=== PATIENT | female | born 1930 | race Caucasian/White ===

== ENCOUNTER 2017-02-10 11:15 | Emergency (ER) | payer MEDICARE, BC ==
[2017-02-10 12:17] LABS: CHLORIDE,CL 99 mmol/L (101-111); SODIUM,NA 138 mmol/L (135-145)
--- NOTE | 2017-02-10 12:36 | EDM.PDOC ---
ED HISTORY OF PRESENT ILLNESS - General Chief Complaint: Cardiovascular Problem Stated Complaint: SOB,JAW PAIN. COMING TO ER GARAGE Time Seen by Provider: 02/10/17 11:45 Source of Information: Reports: Patient, Family History Limitations: Reports: No limitations - History of Present Illness INITIAL COMMENTS - FREE TEXT/NARRATIVE: This 86 yo female patient reports to the ED with a 2 day history of a headache ( top of head), a 2 day history of right sided posterior neck pain, and weakness of her lower extremities (started this morning). The patient also reports increased shortness of breath and right jaw pain. The patient reports her shortness of breath started about 1 month ago. The jaw pain started with the headache and right posterior neck pain (2 day sago). The patient was seen by Dr. Weeks yesterday for the headache and neck pain, was scheduled for a CT tomorrow and given a script for Hydrocodone yesterday. The patient reports little to no symptom improvement from the [place]. The patient has a past history of CHF, lower back pain and has been seen by pain management several times in the past for chronic back pain with no improvement from treatment. 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) - Related Data Allergies/ADRs: Allergies Allergy/AdvReac Type Severity Reaction Status Date / Time amoxicillin Allergy Hives Verified 03/24/16 14:19 ezetimibe Allergy Cannot Verified 03/25/16 07:27 Remember moxifloxacin Allergy Cannot Verified 03/25/16 07:28 Remember sulindac Allergy Cannot Verified 03/25/16 07:28 Remember Tetracyclines Allergy Cannot Verified 03/25/16 07:28 Remember Home Meds: Home Meds Fenofibrate 160 mg PO DAILY 04/20/15 [History] Hydrocodone/Acetaminophen [[place] 10-325 Tablet] 1 each PO TID PRN 04/20/15 [ History] Metoprolol Succinate [Toprol XL] 100 mg PO DAILY 04/20/15 [History] Valsartan/Hydrochlorothiazide [Valsartan-Hctz 320-25 mg Tab] 1 each PO DAILY 12/31 [History] amLODIPine Besylate [Amlodipine Besylate] 10 mg PO DAILY 04/20/15 [History] metFORMIN [Glucophage] 1,000 mg PO BIDMEALS 04/20/15 [History] Clopidogrel [Plavix] 75 mg PO DAILY 03/24/16 [History] Pantoprazole [ProTONIX] 1 tab PO DAILY 03/24/16 [History] Aspirin 325 mg PO DAILY 03/25/16 [History] Ca/D3/Mag#11/Zinc/Laundry Route Driver/Darren/Bor [Caltrate 600+D Plus Tablet] 1 tab PO DAILY 03/25 [History] Gabapentin [Neurontin] 1 cap PO QID 03/25/16 [History] [place]-3 Acid Ethyl Esters [Lovaza] 2 cap PO DAILY 03/25/16 [History] Furosemide [Lasix] 20 mg PO DAILY 02/10/17 [History] Mupirocin Cream [Bactroban Crm] 1 applic TOP TID PRN 02/10/17 [History] Nystatin [Nystatin Crm] 1 applic TOP BID PRN 02/10/17 [History] cloNIDine [Catapres] 0.1 mg PO BID 02/10/17 [History] cycloSPORINE [Restasis Multidose] 1 drop EYEBOTH BID 02/10/17 [History] Past Medical History - Past Health History Medical/Surgical History: Denies Medical/Surgical History Cardiovascular History: Reports: High cholesterol, Hypertension Musculoskeletal History: Reports: Back pain, chronic, Osteoarthritis, Other ( see below) Other Musculoskeletal History: degenerative disc disease Neurological History: Reports: Headaches, chronic Endocrine/Metabolic History: Reports: Diabetes, type II - Past Surgical History Cardiovascular Surgical History: Reports: None Other Female Surgeries/Procedures: Bladder surgery Social & Family History - Family History Family Medical History: Noncontributory - Tobacco Use Smoking Status *Q: Never Smoker Second Hand Smoke Exposure: No - Caffeine Use Caffeine Use: Reports: Coffee, Tea - Recreational Drug Use Recreational Drug Use: No - Living Situation & Occupation Living situation: Reports: , alone Occupation: retired ED ROS GENERAL - Review of Systems Review Of Systems: ROS reveals no pertinent complaints other than HPI. ED EXAM, GENERAL - Physical Exam Exam: See Below General Appearance: alert, WD/WN, moderate distress Eye Exam: bilateral eye: EOMI, normal inspection, PERRL Ears: normal external exam, normal canal, hearing grossly normal, normal TMs Nose: normal inspection, normal mucosa, no blood Throat/Mouth: Normal inspection, Normal lips, Normal teeth, Normal gums, Normal oropharynx, Normal voice, No airway compromise Head: atraumatic, normocephalic Neck: tender lateral (right posterior) Respiratory/Chest: no respiratory distress, lungs clear, normal breath sounds, no accessory muscle use, chest non-tender Cardiovascular: normal peripheral pulses, regular rate, rhythm, no edema, no gallop, no JVD, no murmur, no rub GI/Abdominal: normal bowel sounds, soft, non tender, no organomegaly, no distention, no abnormal bruit, no mass (Female) Exam: Deferred Rectal (Female) Exam: Deferred Back Exam: paraspinal tenderness Extremities: normal inspection, normal range of motion, non-tender, normal capillary refill Neurological: alert, oriented, CN II-XII intact, normal cognition Psychiatric: normal affect, normal mood Skin Exam: Warm, Dry, Intact, Normal color, No rash Lymphatic: no adenopathy Course - Vital Signs Last Recorded V/S: Last Vital Signs Temp 36.6 C 02/10/17 15:20 Pulse 74 02/10/17 15:20 Resp 22 H 02/10/17 15:20 BP 161/55 H 02/10/17 15:20 Pulse Ox 94 L 02/10/17 15:20 - Orders/Labs/Meds Orders: Active Orders 24 hr Category Date Time Status EKG Documentation Completion [RC] URGENT Care 02/10/17 11:32 Active Labs: Laboratory Tests 02/10/17 02/10/17 Range/Units 11:15 11:40 WBC 9.3 (5.0-10.0) 10^3/uL RBC 4.11 L (4.2-5.4) 10^6/uL Hgb 11.0 L (12.0-16.0) g/dL Hct 35.1 L (37.0-47.0) % MCV 85.4 (80-100) fL MCH 26.8 L (27.0-34.0) pg MCHC 31.3 L (33.0-35.0) g/dL Plt Count 213 (150-450) 10^3/uL Neut % (Auto) 58.9 (42.2-75.2) % Lymph % (Auto) 23.2 (20.5-50.1) % [place] % (Auto) 10.8 H (2-8) % Eos % (Auto) 6.6 H (1.0-3.0) % Baso % (Auto) 0.5 (0.0-1.0) % Sodium 138 (135-145) mmol/L Potassium 3.9 (3.6-5.0) mmol/L Chloride 99 L (101-111) mmol/L Carbon Dioxide 29.0 (21.0-31.0) mmol/L Anion Gap 13.9 BUN 32 H (7-18) mg/dL Creatinine 1.1 (0.6-1.3) mg/dL Est Cr Clr Drug Dosing TNP Estimated GFR (MDRD) 47 BUN/Creatinine Ratio 29.09 Glucose 226 H (74-105) mg/dL Calcium 9.4 (8.4-10.2) mg/dl Total Bilirubin 0.3 (0.2-1.0) mg/dL AST 27 (10-42) IU/L ALT 16 (10-60) IU/L Alkaline Phosphatase 25 L (42-121) IU/L Troponin I < 0.02 (0.00-0.02) ng/ml Total Protein 6.8 (6.7-8.2) g/dl Albumin 3.6 (3.2-5.5) g/dl Globulin 3.2 Albumin/Globulin Ratio 1.13 Meds: Medications Discontinued Medications Generic Name Dose Route Start Last Admin Trade Name Freq PRN Reason Stop Dose Admin Morphine Sulfate 2 mg 02/10/17 15:12 02/10/17 15:16 Morphine IVPUSH 02/10/17 15:13 2 mg ONETIME ONE Administration Departure - Departure Time of Disposition: 15:17 Disposition: DC/Tfer to Acute Hospital 02 Reason for Transfer *Q: Other Condition: poor Clinical Impression: Lower extremity weakness Qualifiers: Laterality: bilateral Qualified Code(s): R29.898 - Other symptoms and signs involving the musculoskeletal system Referrals: Umberto Weeks MD [Primary Care Provider] - Forms: Interfacility Transfer EMTALA Care Plan Goals: Discussed the history, examination, CT and lab results with Dr. Osullivan. Dr. Osullivan accepted the patient for continued evaluation and management. The patient will be transported by [facility]. - My Orders Last 24 Hours: My Active Orders 02/10/17 11:32 EKG Documentation Completion [RC] URGENT - Assessment/Plan Last 24 Hours: My Active Orders 02/10/17 11:32 EKG Documentation Completion [RC] URGENT
--- NOTE | 2017-02-10 13:19 | CT ---
CLINICAL HISTORY: 86-year-old female with pain and weakness. SCAN TECHNIQUE: Volume acquisition of data from an emergency unenhanced CT scan of the cervical spin e obtained with the patient lying supine on the Siemens multislice CT scanner [place], [place]. All data archived in the PACS system for storage, reformatting and study. INTERPRETATION: Dense callus around os odontoideum (dens of C2) consistent with old, healed, anatomically aligned no ndisplaced fracture. Some reactive sclerosis posterior articulating facets several levels mid cervical spine but no sign of pathologic skeletal lesion, prevertebral soft tissue swelling, acute cervical fracture, spondylol isthesis or jumped locked facet. No appreciable disc disease or hypertrophic arthritic changes of the cervical spine. CONCLUSION: Apparent old healed fracture odontoid process C2. Minimal arthritic changes.
--- NOTE | 2017-02-10 13:20 | CT ---
CLINICAL HISTORY: 86-year-old female with pain and weakness. SCAN TECHNIQUE: Volume acquisition of data from an emergency unenhanced CT scan of the head obtained with the patient lying supine on the Siemens multislice CT scanner [facility]. All data archived in the PACS system for storage, reformatting and study (bone and br ain windows). INTERPRETATION: Abnormal. 1. Asymmetric old ischemic infarct high in the right parietal convexity unchanged since 20 April 2015. 2. Moderate severe but relatively symmetric cerebral cortical atrophy. 3. No new supratentorial or posterior fossa mass lesion, hydrocephalus or extracerebral/intracranial epidural or subdural hematoma. No abnormal intracerebral/intraventricular/subarachnoid blood. 4. No other new focal areas of ischemic infarct. 5. Cerebellum and brainstem unremarkable.
--- NOTE | 2017-02-10 13:25 | CT ---
CLINICAL HISTORY: 86-year-old female with pain and weakness low back. SCAN TECHNIQUE: Volume acquisition of data from an emergency unenhanced CT scan of the lumbar spine obtained with the patient lying supine on the Siemens multislice CT scanner [facility]. All data archived in the PACS system for storage, reformatting and study. INTERPRETATION: Abnormal. 1. 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 2. Subtle decrease in vertical height T12 vertebral body with prominent Schmorl's node dorsal endpla te. 3. Chronic multilevel disc disease involving nearly all levels lower thoracic and lumbar spine but p articularly severe involvement T12-L1, L2-L3, and L4-L5 levels. (Dextrorotatory scoliosis) 4. Associated dense reactive sclerosis adjacent L4 and L5 endplates. Hypertrophic marginal spondylos is L2-3, L4 and L5 vertebra. Dense bony sclerosis posterior articulating facets. 5. No sign of pathologic skeletal lesion, acute lumbar fracture or spondylolisthesis. 6. Symmetric normal-appearing SI and hip joints, for age.
[2017-02-10] MEDS ORDERED: Morphine 2 MG/ML Syringe IVPUSH ONE (15:12)
[2017-02-10 15:21] VITALS: BP 161/55
--- NOTE | 2017-02-11 11:52 | EKG ---
02/10/2017 - SANGEETHA BAZZI - The 12-lead EKG shows normal sinus rhythm with heart rate of 72, consistent with left bundle-branch block. Nonspecific ST-T wave changes noted on lead V1, V2, and V3 secondary to the left bundle-branch block. No significant ST elevation or ST depression noted on this 12-lead EKG. [facility] /[id number]
== END 2017-02-10 15:52 ==
LOC: DL.ED 11:15
DX: R29.898 Other symptoms and signs involving the musculoskeletal system (principal); E78.00 Pure hypercholesterolemia, unspecified; I10 Essential (primary) hypertension; M51.36 Other intervertebral disc degeneration, lumbar region; R51 Headache; E11.9 Type 2 diabetes mellitus without complications; Z88.8 Allergy status to other drugs, medicaments and biological substances; Z79.899 Other long term (current) drug therapy
CPT/HCPCS: 36415; 70450; 72125; 72131; 80053; 84484; 85025; 93005; 93010; 96374; 99285; J2270; 99284

== ENCOUNTER 2018-12-05 01:30 | Emergency (ER) | payer MEDICARE, BC ==
[2018-12-05 01:49] VITALS: BP 147/60
[2018-12-05] MEDS ORDERED: Nitroglycerin 0.4 MG Tab.SL ONE (01:50)
[2018-12-05] MEDS: Nitroglycerin 0.4 MG Tab.SL SL ONE ×2 (01:51→02:00)
[2018-12-05] MEDS ORDERED: Ondansetron 4 MG/2 ML SDV IV ONE (02:17)
[2018-12-05] MEDS ORDERED: Ondansetron 4 MG/2 ML SDV ONE (02:25)
[2018-12-05] MEDS ORDERED: Morphine 2 MG/ML Syringe ONE (02:25)
[2018-12-05] MEDS: Morphine 2 MG/ML Syringe IVPUSH ONE ×2 (02:27→02:28)
[2018-12-05 02:31] LABS: ANION GAP 19.6; CHLORIDE,CL 96 mmol/L (101-111); SODIUM,NA 135 mmol/L (135-145)
[2018-12-05] MEDS ORDERED: Ketorolac 30 MG/ML SDV IVPUSH ONE (02:32)
--- NOTE | 2018-12-05 02:34 | EDM.PDOC ---
ED HPI GENERAL MEDICAL PROBLEM - General Chief Complaint: Upper Extremity Injury/Pain Stated Complaint: BAD PAIN IN ARM [id number] Time Seen by Provider: 12/05/18 01:42 Source of Information: Reports: Patient History Limitations: Reports: No Limitations - History of Present Illness INITIAL COMMENTS - FREE TEXT/NARRATIVE: Hx waking 2 hours ago with pain to left arm, points to elbow area. Onset 2 hours prior. Initially described as dull ache, later sharp , both constant then intermittent, unclear whether affected or not by movement. Girish injury. Denies chest pain or SOB. No sweating, Hx Remote CVA with left side affect. 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 Left Arm Pain Score (Numeric/FACES): 5 - Related Data Allergies Allergy/AdvReac Type Severity Reaction Status Date / Time amoxicillin Allergy Hives Verified 07/25/18 18:35 ezetimibe Allergy Cannot Verified 07/25/18 18:35 Remember morphine Allergy Confusion Verified 12/05/18 02:29 moxifloxacin Allergy Cannot Verified 07/25/18 18:35 Remember naproxen [From Aleve] Allergy Cannot Verified 07/25/18 18:35 Remember Snaghiv-Qtx-Ygg Reductase Allergy Muscle Verified 07/25/18 18:35 Inhibitor Aches sulindac Allergy Cannot Verified 07/25/18 18:35 Remember Tetracyclines Allergy Cannot Verified 07/25/18 18:35 Remember Home Meds: Home Meds Fenofibrate 160 mg PO DAILY 04/20/15 [History] Metoprolol Succinate [Toprol XL] 100 mg PO DAILY 04/20/15 [History] Valsartan/Hydrochlorothiazide [Valsartan-Hctz 320-25 mg Tab] 1 each PO DAILY 12/31 [History] amLODIPine Besylate [Amlodipine Besylate] 10 mg PO DAILY 04/20/15 [History] metFORMIN [Glucophage] 1,000 mg PO BIDMEALS 04/20/15 [History] Clopidogrel [Plavix] 75 mg PO DAILY 03/24/16 [History] Pantoprazole [ProTONIX] 40 mg PO DAILY 03/24/16 [History] Aspirin 325 mg PO DAILY 03/25/16 [History] Furosemide [Lasix] 20 mg PO DAILY 02/10/17 [History] cloNIDine [Catapres] 0.3 mg PO BID 02/10/17 [History] Cyanocobalamin (Vitamin B-12) [Vitamin B-12] 500 mcg PO DAILY 03/30/18 [History] oxyCODONE HCl/Acetaminophen [Percocet 7.5-325 mg Tablet] 1 tab PO Q8HR PRN 03/30 [History] Calcium Carbonate 600 mg PO DAILY 03/31/18 [History] Cholecalciferol (Vitamin D3) [Vitamin D3] 1,000 unit PO BEDTIME 07/25/18 [ History] [place]-3/DHA/Epa/Fish Oil [[place] 3 500 Softgel] 1,000 mg PO BID 07/25/18 [History ] Propylene Glycol/PEG 400/Pf [Systane 0.3-0.4% Eye Drop] 1 drop OP BID 07/25/18 [ History] Magnesium Oxide 400 mg PO BIDMEALS 07/26/18 [History] glipiZIDE [Glucotrol] 5 mg PO DAILY 07/26/18 [History] Past Medical History - Past Health History Medical/Surgical History: Denies Medical/Surgical History HEENT History: Reports: Impaired Vision Other HEENT History: wears glasses, is leaglly blind Cardiovascular History: Reports: High Cholesterol, Hypertension, Other (See Below) Other Cardiovascular History: pauses in heart beat Respiratory History: Reports: SOB Gastrointestinal History: Reports: GERD Genitourinary History: Reports: Urinary Incontinence Other 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: Musculoskeletal History: Reports: Back Pain, Chronic, Osteoarthritis, Other ( See Below) Other Musculoskeletal History: degenerative disc disease Neurological History: Reports: Headaches, Chronic Other Neuro History: cva in 2010 Psychiatric History: Reports: None Endocrine/Metabolic History: Reports: Diabetes, Type II Hematologic History: Reports: None Immunologic History: Reports: None Oncologic (Cancer) History: Reports: None Dermatologic History: Reports: None - Infectious Disease History Infectious Disease History: Reports: Chicken Pox, Measles, Mumps - Past Surgical History Head Surgeries/Procedures: Reports: None Cardiovascular Surgical History: Reports: None Other GI Surgeries/Procedures: 3 feet bowel out, Other Female Surgeries/Procedures: Bladder surgery Social & Family History - Family History Family Medical History: Noncontributory - Tobacco Use Smoking Status *Q: Unknown Ever Smoked - Caffeine Use Caffeine Use: Reports: Coffee - Recreational Drug Use Recreational Drug Use: No - Living Situation & Occupation Living situation: Reports: , Alone Occupation: Retired Review of Systems - Review of Systems Review Of Systems: ROS reveals no pertinent complaints other than HPI. ED EXAM, GENERAL - Physical Exam Exam: See Below Exam Limited By: No Limitations General Appearance: Alert, Anxious, Mild Distress Eye Exam: Bilateral Eye: EOMI Ears: Normal External Exam Nose: Normal Inspection Throat/Mouth: Normal Inspection Head: Atraumatic, Normocephalic Neck: Normal Inspection Respiratory/Chest: No Respiratory Distress, Lungs Clear, Normal Breath Sounds Cardiovascular: Normal Peripheral Pulses, Other (underlying paced rhythm) GI/Abdominal: Normal Bowel Sounds Back Exam: Normal Inspection Extremities: Normal Inspection Neurological: Alert, Oriented, Normal Cognition, No Motor/Sensory Deficits ( slight weakness left lower with in- toeing from remote CVA residual) Psychiatric: Normal Affect, Anxious Skin Exam: Warm, Dry, Intact, Normal Color Course - Vital Signs Last Recorded V/S: Last Vital Signs Temp 98.7 F 12/05/18 01:47 Pulse 72 12/05/18 01:47 Resp 20 12/05/18 01:47 BP 147/60 H 12/05/18 02:00 Pulse Ox 94 L 12/05/18 01:47 - Orders/Labs/Meds Labs: Laboratory Tests 12/05/18 12/05/18 12/05/18 Range/Units 01:53 01:53 01:53 WBC 7.0 (5.0-10.0) 10^3/uL RBC 4.18 L (4.2-5.4) 10^6/uL Hgb 10.8 L (12.0-16.0) g/dL Hct 33.4 L (37.0-47.0) % MCV 79.9 L (80-100) fL MCH 25.8 L (27.0-34.0) pg MCHC 32.3 L (33.0-35.0) g/dL Plt Count 248 (150-450) 10^3/uL Neut % (Auto) 38.9 L (42.2-75.2) % Lymph % (Auto) 43.7 (20.5-50.1) % [place] % (Auto) 10.1 H (2-8) % Eos % (Auto) 6.2 H (1.0-3.0) % Baso % (Auto) 1.1 H (0.0-1.0) % PT (9.0-12.0) SEC INR (0.9-1.2) D-Dimer, Quantitative (0-400) ng/mL Sodium 135 (135-145) mmol/L Potassium 3.6 (3.6-5.0) mmol/L Chloride 96 L (101-111) mmol/L Carbon Dioxide 23.0 (21.0-31.0) mmol/L Anion Gap 19.6 BUN 38 H (7-18) mg/dL Creatinine 1.4 H (0.6-1.3) mg/dL Est Cr Clr Drug Dosing 25.47 mL/min Estimated GFR (MDRD) 36 BUN/Creatinine Ratio 27.14 Glucose 90 (74-105) mg/dL Calcium 9.3 (8.4-10.2) mg/dl Total Bilirubin 0.5 (0.2-1.0) mg/dL AST 50 H (10-42) IU/L ALT 33 (10-60) IU/L Alkaline Phosphatase 38 L (42-121) IU/L CK-MB (CK-2) 2.20 (0.4-4.7) ng/mL Troponin I < 0.02 (0.00-0.02) ng/ml B-Natriuretic Peptide 460 H (0-100) pg/ml Total Protein 6.8 (6.7-8.2) g/dl Albumin 3.7 (3.2-5.5) g/dl Globulin 3.1 Albumin/Globulin Ratio 1.19 12/05/18 12/05/18 Range/Units 01:53 01:53 WBC (5.0-10.0) 10^3/uL RBC (4.2-5.4) 10^6/uL Hgb (12.0-16.0) g/dL Hct (37.0-47.0) % MCV (80-100) fL MCH (27.0-34.0) pg MCHC (33.0-35.0) g/dL Plt Count (150-450) 10^3/uL Neut % (Auto) (42.2-75.2) % Lymph % (Auto) (20.5-50.1) % [place] % (Auto) (2-8) % Eos % (Auto) (1.0-3.0) % Baso % (Auto) (0.0-1.0) % PT 10.8 (9.0-12.0) SEC INR 1.1 (0.9-1.2) D-Dimer, Quantitative 825 H (0-400) ng/mL Sodium (135-145) mmol/L Potassium (3.6-5.0) mmol/L Chloride (101-111) mmol/L Carbon Dioxide (21.0-31.0) mmol/L Anion Gap BUN (7-18) mg/dL Creatinine (0.6-1.3) mg/dL Est Cr Clr Drug Dosing mL/min Estimated GFR (MDRD) BUN/Creatinine Ratio Glucose (74-105) mg/dL Calcium (8.4-10.2) mg/dl Total Bilirubin (0.2-1.0) mg/dL AST (10-42) IU/L ALT (10-60) IU/L Alkaline Phosphatase (42-121) IU/L CK-MB (CK-2) (0.4-4.7) ng/mL Troponin I (0.00-0.02) ng/ml B-Natriuretic Peptide (0-100) pg/ml Total Protein (6.7-8.2) g/dl Albumin (3.2-5.5) g/dl Globulin Albumin/Globulin Ratio Meds: Medications Discontinued Medications Generic Name Dose Route Start Last Admin Trade Name Freq PRN Reason Stop Dose Admin Ketorolac Tromethamine 15 mg 12/05/18 02:32 12/05/18 02:38 Toradol IVPUSH 12/05/18 02:33 15 mg ONETIME ONE Administration Ketorolac Tromethamine Confirm 12/05/18 02:37 Toradol Administered 12/05/18 02:38 Dose 30 mg .ROUTE .STK-MED ONE Morphine Sulfate 2 mg 12/05/18 02:17 12/05/18 02:28 Morphine IVPUSH 12/05/18 02:18 Not Given ONETIME ONE Morphine Sulfate Confirm 12/05/18 02:25 Morphine Administered 12/05/18 02:26 Dose 2 mg .ROUTE .STK-MED ONE Nitroglycerin 0.4 mg 12/05/18 01:49 12/05/18 02:00 Nitrostat SL 12/05/18 01:50 0.4 mg ONETIME ONE Administration Nitroglycerin Confirm 12/05/18 01:50 12/05/18 01:59 Nitrostat Administered 12/05/18 01:51 Not Given Dose 0.4 mg .ROUTE .STK-MED ONE Ondansetron HCl 4 mg 12/05/18 02:17 12/05/18 02:27 Zofran IV 12/05/18 02:18 4 mg ONETIME ONE Administration Ondansetron HCl Confirm 12/05/18 02:25 Zofran Administered 12/05/18 02:26 Dose 4 mg .ROUTE .STK-MED ONE - Radiology Interpretation Free Text/Narrative:: Name: SANGEETHA BAZZI Age: 88Years F Date: 12/05/2018 SSN: -- : [id number] Study: XR CHEST 1 VIEW Requesting Physician: CALE BECKMAN Images: 1 Addl Studies: Provided Clinical History: Contrast: Contrast Medium: Contrast Amount: Contrast Method: CONFIDENTIALITY STATEMENT This report is intended only for use by the referring physician, and only in accordance with law. If you received this in error, call [phone]. Page 1 of 1 EXAM: XR Chest, 1 View EXAM DATE/TIME: 12/05/2018 2:00 AM CLINICAL HISTORY: 88 years old, female; Signs and symptoms; Other: Chf--left arm pain TECHNIQUE: XR of the chest, 1 view. COMPARISON: No relevant prior studies available. FINDINGS: Lungs: Unremarkable. No consolidation. Pleural space: Unremarkable. No pleural effusion. No pneumothorax. Heart/Mediastinum: Unremarkable. No cardiomegaly. Bones/joints: Unremarkable. IMPRESSION: No acute findings. There is atrial chamber pacemaker in good position Thank you for allowing us to participate in the care of your patient. Dictated and Authenticated by: Cade Granger MD 12/05/2018 2:56 AM Central Time - Re-Assessments/Exams Free Text/Narrative Re-Assessment/Exam: Intermittent pain, appearing more musculoskelatal related. History vague and inconsistent. Telemetry concern with pacemaker function and correctly sensing and capturing. Attempted interrogation via [employer]. Their system currently down until tomorrow. Consult Dr Braden PALAFOX hospitalist and telemetry reviewed. Recommendation to tx to [facility]. Dr Mcmanus accepting of patient [place] via [facility]. Departure - Departure Time of Disposition: 04:20 Disposition: DC/Tfer to Acute Hospital 02 Condition: Good Clinical Impression: Left arm pain, History of CVA (cerebrovascular accident), Cardiac pacemaker recipient Pacemaker malfunction Qualifiers: Encounter type: initial encounter Qualified Code(s): T82.111A - Breakdown ( mechanical) of cardiac pulse generator (battery), initial encounter - Discharge Information *PRESCRIPTION DRUG MONITORING PROGRAM REVIEWED*: Not Applicable Referrals: Umberto Weeks MD [Primary Care Provider] - Forms: ED Department Discharge
[2018-12-05] MEDS ORDERED: Ketorolac 30 MG/ML SDV ONE (02:37)
== END 2018-12-05 04:22 ==
LOC: DL.ED 01:30
DX: T82.111A Breakdown (mechanical) of cardiac pulse generator (battery), initial encounter (principal); I10 Essential (primary) hypertension; E78.00 Pure hypercholesterolemia, unspecified; E11.9 Type 2 diabetes mellitus without complications; K21.9 Gastro-esophageal reflux disease without esophagitis; Z79.899 Other long term (current) drug therapy; Z79.84 Long term (current) use of oral hypoglycemic drugs; Z79.01 Long term (current) use of anticoagulants; Z79.82 Long term (current) use of aspirin; Z88.8 Allergy status to other drugs, medicaments and biological substances; Z95.0 Presence of cardiac pacemaker; Z86.73 Personal history of transient ischemic attack (TIA), and cerebral infarction without residual deficits; Z88.1 Allergy status to other antibiotic agents; Z88.5 Allergy status to narcotic agent
CPT/HCPCS: 36415; 71045; 80053; 82553; 83880; 84484; 85025; 85379; 85610; 96374; 96375; 99285; A9270-GY; J1885; J2270; J2405

== ENCOUNTER 2018-12-07 15:42 | Emergency (ER) | payer MEDICARE, BC ==
[2018-12-07] MEDS ORDERED: Sodium Chloride 0.9% 10 ML Syringe FLUSH PRN (15:59)
--- NOTE | 2018-12-07 16:17 | CT ---
Clinical history: 88-year-old female on anticoagulant therapy who fell striking head ("gash" laterally left and frontal hematoma). Scan technique: Volume acquisition of data emergency unenhanced CT scan of the head and brain obtained with the patient was lying supine on the Siemens multislice scanner [place], [place]. All data archived in the PACS system for storage, reformatting axial/sagittal/coronal planes and study (bone/brain windows). Interpretation: Abnormal. Huge focal subcutaneous hematoma anteriorly midline over the frontal sinus without sign of underlying fracture bony calvarium (bandage artifact over the convexity on the left). No other foreign bodies and uniformly thick bony calvarium. Symmetric clear pneumatization of the paranasal and mastoid sinuses. Nasal septum is straight in the midline. No brain contusion. Symmetric age-appropriate atrophy with underlying mirror-image normal ventricular system. No abnormal extracerebral/intracranial epidural or subdural hematoma. Old infarct high in the right parietal convexity that was evident on 25 July 2018 exam but.... *discrete new lacunar type infarct in the posterior limb external capsule, right cerebral hemisphere today. No supratentorial or posterior fossa mass lesion. No sign of acute intracerebral/intraventricular/subarachnoid bleed. Cerebellum and brainstem unremarkable and unchanged. CONCLUSION: Evidence of extracranial trauma (see above). No skull fracture or intracranial bleed.
--- NOTE | 2018-12-07 16:25 | CT ---
Clinical history: 88-year-old female on anticoagulant therapy ("stroke" July 2018) who fell sustaining severe for head trauma and left lateral head laceration. "No fractures or intracranial bleed" on emergency CT scan of the head. Scan technique: Volume acquisition of data emergency unenhanced CT scan of the cervical spine obtained while the patient was lying supine on the Siemens multi slice scanner [place], [place]. All data archived in the PACS system for storage, reformatting axial/sagittal/coronal planes and study. Interpretation: 1. Central bony resorption and extensive callus around the odontoid process C2 vertebral body suggests older (healed) fracture. Note: Unchanged in appearance since [address] exam cervical spine. 2. No prevertebral soft tissue swelling and no sign of acute cervical or upper thoracic fracture/spondylolisthesis. 3. Dense reactive sclerosis posterior articulating facets several levels mid cervical spine (arthritis). 4. Severe demineralization consistent with age and gender. Uncinate spur C3-4, on the left. 5. No sign of pathologic skeletal lesion, prevertebral soft tissue swelling, or acute fracture. 6. Normal TMJs. No basal skull fracture. CONCLUSION: No acute cervical spine fracture.
[2018-12-07] MEDS ORDERED: Diphtheria,Pertussis(Acell),Tetanus Vaccine 0.5 ML SDV IM ONE (16:27)
[2018-12-07 16:31] LABS: ANION GAP 16.3; CHLORIDE,CL 99 mmol/L (101-111); SODIUM,NA 136 mmol/L (135-145)
--- NOTE | 2018-12-08 10:27 | EDM.PDOC ---
Scribed by Mona Quintanilla 12/07/18 1621 for Rebecca Oliva NP ED HPI GENERAL MEDICAL PROBLEM - General Chief Complaint: Trauma Stated Complaint: FELL Time Seen by Provider: 12/07/18 15:46 Source of Information: Reports: Patient, RN, RN Notes Reviewed History Limitations: Reports: No Limitations - History of Present Illness INITIAL COMMENTS - FREE TEXT/NARRATIVE: PRIMARY TRAUMA SURVEY: Arrives in wheelchair per POV. Pt. awake, alert, oriented to person, place, and date. AIRWAY: Patent nasal and oral airways. Conversant with clear speech. BREATHING: Spontaneous respirations, with lungs CTA B/L. Good color, no cyanosis. CIRCULATION: Intact peripheral pulses at all 4 distal extremities, normal capillary refill time at all four extremities distal digits. Heart irreg, no murmur, no rub. DISABILITY/DEFORMITIES: Pt bleeding to left side of scalp from laceration. No upper or lower extremity pain , obvious deformity. Large hematoma to the center of the forehead noted. Glendy pelvis intact, stable and non-tender. Abdomen benign to exam. Chest non-tender anteriorly, no flail chest, crepitus, or subcutaneous emphysema. CN II-XII intact. Skin clean, dry, warm. EXPOSURE: Pt. was log rolled with maintenance of c-spine immobilization. No visible injury to back, no vertebral glendy tenderness. SECOND TRAUMA SURVEY FOLLOWS: Pt to ER with her daughter MELANIE. She states she was shutting the storm door when she slipped and fell, hitting her head on the storm door. She states she was not knocked out. She states she does take Warfarin for hx of stroke. GCS upon arrival: 15 Patient arrived at 1545 Trauma Code called at 1546 No C-collar or spine board present upon arrival as patient arrived POV Primary Survey at 1547 Secondary Survey at 1550 GCS at 1 hour: GCS at discharge: Onset: Today, Sudden - Related Data Allergies Allergy/AdvReac Type Severity Reaction Status Date / Time amoxicillin Allergy Hives Verified 12/07/18 16:06 ezetimibe Allergy Cannot Verified 12/07/18 16:06 Remember morphine Allergy Confusion Verified 12/07/18 16:06 moxifloxacin Allergy Cannot Verified 12/07/18 16:06 Remember naproxen [From Aleve] Allergy Cannot Verified 12/07/18 16:06 Remember Jllqaji-Exb-Pbd Reductase Allergy Muscle Verified 12/07/18 16:06 Inhibitor Aches sulindac Allergy Cannot Verified 12/07/18 16:06 Remember Tetracyclines Allergy Cannot Verified 12/07/18 16:06 Remember Home Meds: Home Meds Fenofibrate 160 mg PO DAILY 04/20/15 [History] Metoprolol Succinate [Toprol XL] 100 mg PO DAILY 04/20/15 [History] Valsartan/Hydrochlorothiazide [Valsartan-Hctz 320-25 mg Tab] 1 each PO DAILY 12/31 [History] amLODIPine Besylate [Amlodipine Besylate] 10 mg PO DAILY 04/20/15 [History] metFORMIN [Glucophage] 1,000 mg PO BIDMEALS 04/20/15 [History] Clopidogrel [Plavix] 75 mg PO DAILY 03/24/16 [History] Pantoprazole [ProTONIX] 40 mg PO DAILY 03/24/16 [History] Aspirin 325 mg PO DAILY 03/25/16 [History] Furosemide [Lasix] 20 mg PO DAILY 02/10/17 [History] cloNIDine [Catapres] 0.3 mg PO BID 02/10/17 [History] Cyanocobalamin (Vitamin B-12) [Vitamin B-12] 500 mcg PO DAILY 03/30/18 [History] oxyCODONE HCl/Acetaminophen [Percocet 7.5-325 mg Tablet] 1 tab PO Q8HR PRN 03/30 [History] Calcium Carbonate 600 mg PO DAILY 03/31/18 [History] Cholecalciferol (Vitamin D3) [Vitamin D3] 1,000 unit PO BEDTIME 07/25/18 [ History] [place]-3/DHA/Epa/Fish Oil [[place] 3 500 Softgel] 1,000 mg PO BID 07/25/18 [History ] Propylene Glycol/PEG 400/Pf [Systane 0.3-0.4% Eye Drop] 1 drop OP BID 07/25/18 [ History] Magnesium Oxide 400 mg PO BIDMEALS 07/26/18 [History] glipiZIDE [Glucotrol] 5 mg PO DAILY 07/26/18 [History] Past Medical History - Past Health History Medical/Surgical History: Denies Medical/Surgical History HEENT History: Reports: Impaired Vision Other HEENT History: wears glasses, is leaglly blind Cardiovascular History: Reports: High Cholesterol, Hypertension, Other (See Below) Other Cardiovascular History: pauses in heart beat Respiratory History: Reports: SOB Gastrointestinal History: Reports: GERD Genitourinary History: Reports: Urinary Incontinence Other Genitourinary History: wears protection [employer] History: Reports: Musculoskeletal History: Reports: Back Pain, Chronic, Osteoarthritis, Other ( See Below) Other Musculoskeletal History: degenerative disc disease Neurological History: Reports: Headaches, Chronic, Other (See Below) (stroke) Other Neuro History: cva in 2010 Psychiatric History: Reports: None Endocrine/Metabolic History: Reports: Diabetes, Type II Hematologic History: Reports: None Immunologic History: Reports: None Oncologic (Cancer) History: Reports: None Dermatologic History: Reports: None - Infectious Disease History Infectious Disease History: Reports: Chicken Pox, Measles, Mumps - Past Surgical History Head Surgeries/Procedures: Reports: None Cardiovascular Surgical History: Reports: None Other GI Surgeries/Procedures: 3 feet bowel out, Other Female Surgeries/Procedures: Bladder surgery Social & Family History - Family History Family Medical History: Noncontributory - Caffeine Use Caffeine Use: Reports: Coffee - Living Situation & Occupation Living situation: Reports: , Alone Occupation: Retired Review of Systems - Review of Systems Review Of Systems: ROS reveals no pertinent complaints other than HPI. ED EXAM, GENERAL - Physical Exam Exam: See Below Exam Limited By: No Limitations General Appearance: Alert, Mild Distress Eye Exam: Bilateral Eye: EOMI, Normal Inspection, PERRL Ears: Normal External Exam, Normal Canal, Hearing Grossly Normal, Normal TMs Nose: Normal Inspection, Normal Mucosa, No Blood Throat/Mouth: Normal Inspection, Normal Lips, Normal Teeth, Normal Gums, Normal Oropharynx, Normal Voice, No Airway Compromise Head: Atraumatic, Other (laceration left side of head. Facial swelling. ) Neck: Normal Inspection, Supple, Non-Tender, Full Range of Motion Respiratory/Chest: Decreased Breath Sounds Cardiovascular: Other (irregular) GI/Abdominal: Normal Bowel Sounds, Soft, Non-Tender, No Organomegaly, No Distention, No Abnormal Bruit, No Mass (Female) Exam: Deferred Rectal (Female) Exam: Deferred Back Exam: Normal Inspection, Full Range of Motion, NT Extremities: Normal Inspection, Normal Range of Motion, Non-Tender, Normal Capillary Refill, No Pedal Edema Neurological: Alert, Oriented, CN II-XII Intact, Normal Cognition, Normal Gait, Normal Reflexes, No Motor/Sensory Deficits Psychiatric: Normal Affect, Normal Mood Skin Exam: Other (laceration left side of head 3.5cm) Lymphatic: No Adenopathy ED TRAUMA PROCEDURES - Laceration/Wound Repair Left Middle Lateral Ventral Head Lac/Wound Length In cm: 3.5 Appearance: Subcutaneous Distal NVT: Neuro & Vascular Intact, No Tendon Injury Skin Prep: Chlorhexidine (Hibiciens) Exploration/Debridement/Repair: Wound Explored, In a Bloodless Field, No Foreign Material Found Closed With: Naylor # of Sutures: 6 Drain Placement: No Sterile Dressing Applied: Nurse Tetanus Status Addressed: Yes Complications: No Course - Orders/Labs/Meds Orders: Active Orders 24 hr Category Date Time Status Peripheral IV Care [RC] . DIRECTED Care 12/07/18 16:00 Active Vaccines to be Administered [RC] PER UNIT ROUTINE Care 12/07/18 16:27 Active Elbow Min 3V Lt [CR] Urgent Exams 12/07/18 17:31 Taken UA RFX MICHAEL AND CULT IF INDIC [URIN] Urgent Lab 12/07/18 18:01 Received Sodium Chloride 0.9% [Saline Flush] Med 12/07/18 15:59 Active 10 ml FLUSH ASDIRECTED PRN Peripheral IV Insertion Adult [OM.PC] Stat Oth 12/07/18 15:58 Ordered Medication Orders Sodium Chloride (Saline Flush) 10 ml FLUSH ASDIRECTED PRN PRN Reason: Keep Vein Open Last Admin: 12/07/18 16:18 Dose: 10 ml Labs: Laboratory Tests 12/07/18 12/07/18 12/07/18 Range/Units 16:08 16:08 16:08 WBC 6.6 (5.0-10.0) 10^3/uL RBC 4.14 L (4.2-5.4) 10^6/uL Hgb 10.6 L (12.0-16.0) g/dL Hct 33.3 L (37.0-47.0) % MCV 80.4 (80-100) fL MCH 25.6 L (27.0-34.0) pg MCHC 31.8 L (33.0-35.0) g/dL Plt Count 226 (150-450) 10^3/uL Neut % (Auto) 60.5 (42.2-75.2) % Lymph % (Auto) 23.6 (20.5-50.1) % [place] % (Auto) 8.9 H (2-8) % Eos % (Auto) 5.9 H (1.0-3.0) % Baso % (Auto) 1.1 H (0.0-1.0) % PT 10.6 (9.0-12.0) SEC INR 1.1 (0.9-1.2) Sodium 136 (135-145) mmol/L Potassium 4.3 (3.6-5.0) mmol/L Chloride 99 L (101-111) mmol/L Carbon Dioxide 25.0 (21.0-31.0) mmol/L Anion Gap 16.3 BUN 33 H (7-18) mg/dL Creatinine 1.3 (0.6-1.3) mg/dL Est Cr Clr Drug Dosing TNP Estimated GFR (MDRD) 39 BUN/Creatinine Ratio 25.38 Glucose 172 H (74-105) mg/dL Calcium 9.4 (8.4-10.2) mg/dl Total Bilirubin 0.6 (0.2-1.0) mg/dL AST 45 H (10-42) IU/L ALT 28 (10-60) IU/L Alkaline Phosphatase 32 L (42-121) IU/L Total Protein 6.6 L (6.7-8.2) g/dl Albumin 3.7 (3.2-5.5) g/dl Globulin 2.9 Albumin/Globulin Ratio 1.28 Meds: Medications Generic Name Dose Route Start Last Admin Trade Name Freq PRN Reason Stop Dose Admin Sodium Chloride 10 ml 12/07/18 15:59 12/07/18 16:18 Saline Flush FLUSH 10 ml ASDIRECTED PRN Administration Keep Vein Open Discontinued Medications Generic Name Dose Route Start Last Admin Trade Name Freq PRN Reason Stop Dose Admin Diphtheria/Tetanus/Acell Pertussis 0.5 ml 12/07/18 16:27 12/07/18 17:53 Adacel IM 12/07/18 16:28 0.5 ml .ONCE ONE Administration - Radiology Interpretation Free Text/Narrative:: CT HEAD: Old infarct high in the right parietal convexity that was evident on July 25, 2018 but discrete new lacunar type infarct in the posterior limb external capsule, right cerebral hemisphere today. Conclusion: Evidence of extracranial trauma (see above). No skull fracture or intracranial bleed. See rad report. CT Cervical spine: No acute cervical spine fracture. See rad report. Left elbow xray: FINDINGS: Bones/joints: Normal. Soft tissues: Displaced anterior fat pad may indicate the presence of a joint effusion. IMPRESSION: Displaced anterior fat pad may indicate the presence of a joint effusion. Thank you for allowing us to participate in the care of your patient. Dictated and Authenticated by: Frandy Lucia MD 12/07/2018 6:22 PM Central Time ([place] & [place]) See rad report Departure - Departure Time of Disposition: 18:31 Disposition: Home, Self-Care 01 Condition: Fair Clinical Impression: Anticoagulated on Coumadin, Effusion of elbow joint, left Contusion of face Qualifiers: Encounter type: initial encounter Qualified Code(s): S00.83XA - Contusion of other part of head, initial encounter Laceration of scalp Qualifiers: Encounter type: initial encounter Qualified Code(s): S01.01XA - Laceration without foreign body of scalp, initial encounter Fall at home Qualifiers: Encounter type: initial encounter Qualified Code(s): W19.XXXA - Unspecified fall, initial encounter; Y92.009 - Unspecified place in unspecified non- institutional (private) residence as the place of occurrence of the external cause - Discharge Information *PRESCRIPTION DRUG MONITORING PROGRAM REVIEWED*: No *COPY OF PRESCRIPTION DRUG MONITORING REPORT IN PATIENT ERWIN: No Instructions: Facial or Scalp Contusion, [id number], Contusion, Arej-[id number] , Head Injury, Adult, [id number], Laceration Care, Adult, [id number], Stitches, Tracy, or Adhesive Wound Closure, [id number], Hematoma, Easy-to- Read, Heat Therapy, [id number], Elbow and Forearm Exercises-SportsMed Forms: ED Department Discharge Additional Instructions: Use ice to each area on the head as tolerated May shower, dab area of tracy dry, careful so towel does not get caught on the tracy Follow up with your primary care facility in 7-10 days for staple removal May use Tylenol as directed for pain May alternate ice and heat to the elbow and left arm as tolerated - My Orders Last 24 Hours: My Active Orders 12/07/18 15:58 Peripheral IV Insertion Adult [OM.PC] Stat 12/07/18 15:59 Sodium Chloride 0.9% [Saline Flush] 10 ml FLUSH ASDIRECTED PRN 12/07/18 16:00 Peripheral IV Care [RC] . DIRECTED 12/07/18 16:27 Vaccines to be Administered [RC] PER UNIT ROUTINE 12/07/18 17:31 Elbow Min 3V Lt [CR] Urgent 12/07/18 18:01 UA RFX MICHAEL AND CULT IF INDIC [URIN] Urgent - Assessment/Plan Last 24 Hours: My Active Orders 12/07/18 15:58 Peripheral IV Insertion Adult [OM.PC] Stat 12/07/18 15:59 Sodium Chloride 0.9% [Saline Flush] 10 ml FLUSH ASDIRECTED PRN 12/07/18 16:00 Peripheral IV Care [RC] . DIRECTED 12/07/18 16:27 Vaccines to be Administered [RC] PER UNIT ROUTINE 12/07/18 17:31 Elbow Min 3V Lt [CR] Urgent 12/07/18 18:01 UA RFX MICHAEL AND CULT IF INDIC [URIN] Urgent I have read and agree with the documentation that has been completed regarding this visit. By signing this record, I attest that the documentation was completed in my physical presence and is an accurate record of the encounter.
== END 2018-12-07 18:54 | disposition home or self-care (01) ==
LOC: DL.ED 15:42
DX: S01.01XA Laceration without foreign body of scalp, initial encounter (principal); M25.422 Effusion, left elbow; I10 Essential (primary) hypertension; E11.9 Type 2 diabetes mellitus without complications; I63.9 Cerebral infarction, unspecified; Z23 Encounter for immunization; Z79.01 Long term (current) use of anticoagulants; Z79.899 Other long term (current) drug therapy; Z88.1 Allergy status to other antibiotic agents; Z88.5 Allergy status to narcotic agent; Z88.8 Allergy status to other drugs, medicaments and biological substances; Z79.84 Long term (current) use of oral hypoglycemic drugs; W01.198A Fall on same level from slipping, tripping and stumbling with subsequent striking against other object, initial encounter
CPT/HCPCS: 12002; 36415; 70450; 72125; 73080-LT; 80053; 81001; 85025; 85610; 90471; 90715; 99284

== ENCOUNTER 2019-02-24 19:49 | Emergency (ER) | payer MEDICARE, BC ==
[2019-02-24] MEDS ORDERED: Ondansetron 4 MG Tab.DIS PO ONE (19:50)
[2019-02-24 20:50] LABS: ANION GAP 13.7; CHLORIDE,CL 103 mmol/L (101-111); SODIUM,NA 136 mmol/L (135-145)
[2019-02-24] MEDS ORDERED: Ondansetron 4 MG/2 ML SDV IV ONE (21:15)
--- NOTE | 2019-02-24 21:54 | EDM.PDOC ---
ED HPI GENERAL MEDICAL PROBLEM - General Chief Complaint: General Stated Complaint: FEELING VERY SICK Time Seen by Provider: 02/24/19 20:45 Source of Information: Reports: Patient History Limitations: Reports: No Limitations - History of Present Illness INITIAL COMMENTS - FREE TEXT/NARRATIVE: This 88 yo female patient was brought to the ED by family due to her not feeling well today. The patient reports she has been nauseated all day which got much worse this evening. The patient reports she has also noticed increased right sided neck pain. The patient reports she has had neck pain for the past couple of months, but it has gotten worse today. The patient did take a pain pill this afternoon (1400), but continues to have neck pain. The patient reports her nausea got much worse after she had chicken noodle soup at about 1630. This patient was seen in the ED 1 week ago for dehydration and a urinary tract infection. The patient reports she was on her last day of antibiotics ( macrobid) today, but could not take it due to the nausea. The patient reports increased shortness of breath and chest pain while she was getting up to come into the ED. 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) Right Neck Pain Score (Numeric/FACES): 8 - Related Data Allergies Allergy/AdvReac Type Severity Reaction Status Date / Time amoxicillin Allergy Hives Verified 02/24/19 20:06 ezetimibe Allergy Cannot Verified 02/24/19 20:06 Remember morphine Allergy Confusion Verified 02/24/19 20:06 moxifloxacin Allergy Cannot Verified 02/24/19 20:06 Remember naproxen [From Aleve] Allergy Cannot Verified 02/24/19 20:06 Remember Qbgwiee-Pog-Lux Reductase Allergy Muscle Verified 02/24/19 20:06 Inhibitor Aches sulindac Allergy Cannot Verified 02/24/19 20:06 Remember Tetracyclines Allergy Cannot Verified 02/24/19 20:06 Remember Home Meds: Home Meds Fenofibrate 160 mg PO DAILY 04/20/15 [History] Metoprolol Succinate [Toprol XL] 100 mg PO DAILY 04/20/15 [History] Valsartan/Hydrochlorothiazide [Valsartan-Hctz 320-25 mg Tab] 1 each PO DAILY 12/31 [History] amLODIPine Besylate [Amlodipine Besylate] 10 mg PO DAILY 04/20/15 [History] metFORMIN [Glucophage] 1,000 mg PO BIDMEALS 04/20/15 [History] Clopidogrel [Plavix] 75 mg PO DAILY 03/24/16 [History] Pantoprazole [ProTONIX] 40 mg PO DAILY 03/24/16 [History] Aspirin 325 mg PO DAILY 03/25/16 [History] Furosemide [Lasix] 20 mg PO DAILY 02/10/17 [History] cloNIDine [Catapres] 0.2 mg PO BID 02/10/17 [History] Cyanocobalamin (Vitamin B-12) [Vitamin B-12] 500 mcg PO DAILY 03/30/18 [History] oxyCODONE HCl/Acetaminophen [Percocet 7.5-325 mg Tablet] 1 tab PO Q8HR PRN 03/30 [History] Calcium Carbonate 600 mg PO DAILY 03/31/18 [History] Cholecalciferol (Vitamin D3) [Vitamin D3] 1,000 unit PO BEDTIME 07/25/18 [ History] Concord-3/DHA/Epa/Fish Oil [Concord 3 500 Softgel] 1,000 mg PO BID 07/25/18 [History ] Propylene Glycol/PEG 400/Pf [Systane 0.3-0.4% Eye Drop] 1 drop OP BID 07/25/18 [ History] glipiZIDE [Glucotrol] 5 mg PO DAILY 07/26/18 [History] Past Medical History - Past Health History Medical/Surgical History: Denies Medical/Surgical History HEENT History: Reports: Impaired Vision Other HEENT History: wears glasses, is leaglly blind Cardiovascular History: Reports: High Cholesterol, Hypertension, Pacemaker, Other (See Below) Other Cardiovascular History: pauses in heart beat Respiratory History: Reports: SOB Gastrointestinal History: Reports: GERD Genitourinary History: Reports: Urinary Incontinence Other Genitourinary History: wears protection 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: Musculoskeletal History: Reports: Back Pain, Chronic, Osteoarthritis, Other ( See Below) Other Musculoskeletal History: degenerative disc disease Neurological History: Reports: Headaches, Chronic, Other (See Below) Other Neuro History: cva in 2011 Psychiatric History: Reports: None Endocrine/Metabolic History: Reports: Diabetes, Type II Hematologic History: Reports: None Immunologic History: Reports: None Oncologic (Cancer) History: Reports: None Dermatologic History: Reports: None - Infectious Disease History Infectious Disease History: Reports: Chicken Pox, Measles, Mumps - Past Surgical History Head Surgeries/Procedures: Reports: None Cardiovascular Surgical History: Reports: Pacer Other GI Surgeries/Procedures: 3 feet bowel out, Other Female Surgeries/Procedures: Bladder surgery Social & Family History - Family History Family Medical History: Noncontributory - Tobacco Use Smoking Status *Q: Never Smoker - Caffeine Use Caffeine Use: Reports: Coffee - Recreational Drug Use Recreational Drug Use: No - Living Situation & Occupation Living situation: Reports: , Alone Occupation: Retired ED ROS GENERAL - Review of Systems Review Of Systems: ROS reveals no pertinent complaints other than HPI. ED EXAM, GENERAL - Physical Exam Exam: See Below Exam Limited By: No Limitations General Appearance: Alert, WD/WN, Moderate Distress, Thin Eye Exam: Bilateral Eye: EOMI, Normal Inspection, PERRL Ears: Normal External Exam, Normal Canal, Hearing Grossly Normal, Normal TMs Nose: Normal Inspection, Normal Mucosa, No Blood Throat/Mouth: Normal Inspection, Normal Lips, Normal Teeth, Normal Gums, Normal Oropharynx, Normal Voice, No Airway Compromise Head: Atraumatic, Normocephalic Neck: Normal Inspection, Supple, Non-Tender, Full Range of Motion Respiratory/Chest: No Respiratory Distress, Lungs Clear, Normal Breath Sounds, No Accessory Muscle Use, Chest Non-Tender Cardiovascular: Normal Peripheral Pulses, Regular Rate, Rhythm, No Gallop, No JVD, No Murmur, No Rub GI/Abdominal: Normal Bowel Sounds, Soft, Non-Tender, No Organomegaly, No Distention, No Abnormal Bruit, No Mass (Female) Exam: Deferred Rectal (Female) Exam: Deferred Back Exam: Normal Inspection, Full Range of Motion, NT Extremities: Normal Range of Motion, Non-Tender, Normal Capillary Refill, Pedal Edema Neurological: Alert, Oriented, CN II-XII Intact, Normal Cognition, Normal Gait, Normal Reflexes, No Motor/Sensory Deficits Psychiatric: Normal Affect, Normal Mood Skin Exam: Warm, Dry, Intact, Normal Color, No Rash Lymphatic: No Adenopathy Course - Vital Signs Last Recorded V/S: Last Vital Signs Temp 37.2 C 02/24/19 22:12 Pulse 74 02/24/19 22:12 Resp 16 02/24/19 22:12 BP 138/81 02/24/19 22:12 Pulse Ox 88 L 02/24/19 22:12 - Orders/Labs/Meds Orders: Active Orders 24 hr Category Date Time Status EKG Documentation Completion [RC] URGENT Care 02/24/19 20:14 Active Glucose [Blood Glucose Check, Bedside] [RC] ONETIME Care 02/24/19 20:16 Active Labs: Laboratory Tests 02/24/19 02/24/19 02/24/19 Range/Units 20:21 20:23 20:23 WBC 6.6 (5.0-10.0) 10^3/uL RBC 4.54 (4.2-5.4) 10^6/uL Hgb 11.4 L D (12.0-16.0) g/dL Hct 35.2 L (37.0-47.0) % MCV 77.5 L (80-100) fL MCH 25.1 L (27.0-34.0) pg MCHC 32.4 L (33.0-35.0) g/dL Plt Count 216 (150-450) 10^3/uL Neut % (Auto) 59.1 (42.2-75.2) % Lymph % (Auto) 17.7 L (20.5-50.1) % Shelby % (Auto) 12.0 H (2-8) % Eos % (Auto) 10.6 H (1.0-3.0) % Baso % (Auto) 0.6 (0.0-1.0) % Sodium 136 (135-145) mmol/L Potassium 3.7 (3.6-5.0) mmol/L Chloride 103 (101-111) mmol/L Carbon Dioxide 23.0 (21.0-31.0) mmol/L Anion Gap 13.7 BUN 22 H D (7-18) mg/dL Creatinine 0.7 (0.6-1.3) mg/dL Est Cr Clr Drug Dosing 50.95 mL/min Estimated GFR (MDRD) > 60 BUN/Creatinine Ratio 31.42 Glucose 139 H (74-105) mg/dL POC Glucose 123 H (83-110) mg/dl Calcium 10.0 (8.4-10.2) mg/dl Total Bilirubin 0.8 (0.2-1.0) mg/dL AST 47 H (10-42) IU/L ALT 44 (10-60) IU/L Alkaline Phosphatase 34 L (42-121) IU/L Troponin I 0.01 (0.00-0.08) ng/mL B-Natriuretic Peptide 592 H (0-100) pg/ml Total Protein 7.4 (6.7-8.2) g/dl Albumin 4.0 (3.2-5.5) g/dl Globulin 3.4 Albumin/Globulin Ratio 1.18 Urine Color (YELLOW) Urine Appearance (CLEAR) Urine pH (5.0-9.0) Ur Specific [place] (1.005-1.030) Urine Protein (NEGATIVE) Urine Glucose (UA) (NEGATIVE) Urine Ketones (NEGATIVE) Urine Occult Blood (NEGATIVE) Urine Nitrite (NEGATIVE) Urine Bilirubin (NEGATIVE) Urine Urobilinogen (0.2-1.0) mg/dL Ur Leukocyte Esterase (NEGATIVE) Urine RBC /HPF Urine WBC (0-5/HPF) /HPF Ur Epithelial Cells /HPF Amorphous Sediment (0/HPF) /HPF Urine Bacteria (0-FEW/HPF) /HPF Urine Mucus /LPF 02/24/19 Range/Units 21:00 WBC (5.0-10.0) 10^3/uL RBC (4.2-5.4) 10^6/uL Hgb (12.0-16.0) g/dL Hct (37.0-47.0) % MCV (80-100) fL MCH (27.0-34.0) pg MCHC (33.0-35.0) g/dL Plt Count (150-450) 10^3/uL Neut % (Auto) (42.2-75.2) % Lymph % (Auto) (20.5-50.1) % Shelby % (Auto) (2-8) % Eos % (Auto) (1.0-3.0) % Baso % (Auto) (0.0-1.0) % Sodium (135-145) mmol/L Potassium (3.6-5.0) mmol/L Chloride (101-111) mmol/L Carbon Dioxide (21.0-31.0) mmol/L Anion Gap BUN (7-18) mg/dL Creatinine (0.6-1.3) mg/dL Est Cr Clr Drug Dosing mL/min Estimated GFR (MDRD) BUN/Creatinine Ratio Glucose (74-105) mg/dL POC Glucose (83-110) mg/dl Calcium (8.4-10.2) mg/dl Total Bilirubin (0.2-1.0) mg/dL AST (10-42) IU/L ALT (10-60) IU/L Alkaline Phosphatase (42-121) IU/L Troponin I (0.00-0.08) ng/mL B-Natriuretic Peptide (0-100) pg/ml Total Protein (6.7-8.2) g/dl Albumin (3.2-5.5) g/dl Globulin Albumin/Globulin Ratio Urine Color Yellow (YELLOW) Urine Appearance Clear (CLEAR) Urine pH 7.5 (5.0-9.0) Ur Specific [place] 1.015 (1.005-1.030) Urine Protein 100 H (NEGATIVE) Urine Glucose (UA) 100 H (NEGATIVE) Urine Ketones Negative (NEGATIVE) Urine Occult Blood Negative (NEGATIVE) Urine Nitrite Negative (NEGATIVE) Urine Bilirubin Negative (NEGATIVE) Urine Urobilinogen 0.2 (0.2-1.0) mg/dL Ur Leukocyte Esterase Negative (NEGATIVE) Urine RBC 0-5 /HPF Urine WBC 0-5 (0-5/HPF) /HPF Ur Epithelial Cells Rare /HPF Amorphous Sediment Rare (0/HPF) /HPF Urine Bacteria Rare (0-FEW/HPF) /HPF Urine Mucus Not seen /LPF Meds: Medications Discontinued Medications Generic Name Dose Route Start Last Admin Trade Name Freq PRN Reason Stop Dose Admin Ondansetron HCl 4 mg 02/24/19 21:15 02/24/19 21:22 Zofran IV 02/24/19 21:16 4 mg ONETIME ONE Administration Departure - Departure Time of Disposition: 22:17 Disposition: Home, Self-Care 01 Condition: Fair Clinical Impression: Gastroenteritis - Discharge Information *PRESCRIPTION DRUG MONITORING PROGRAM REVIEWED*: Not Applicable *COPY OF PRESCRIPTION DRUG MONITORING REPORT IN PATIENT ERWIN: Not Applicable Forms: ED Department Discharge Care Plan Goals: The patient was advised of the examination and lab results during the visit. The patient was given IV fluids and IV Zofran while in the ED. The patient was discharged with Zofran ODT (4 mg) #4 to take 1 by mouth every 6 hours as needed for nausea. The patient was encouraged to stick to a BRAT diet (bananas, rice, applesauce and toast) with small frequent sips of fluid. If the patient has any additional symptoms or concerns, the patient should either return to the emergency department or follow-up with her primary care facility. - My Orders Last 24 Hours: My Active Orders 02/24/19 20:14 EKG Documentation Completion [RC] URGENT 02/24/19 20:16 Glucose [Blood Glucose Check, Bedside] [RC] ONETIME - Assessment/Plan Last 24 Hours: My Active Orders 02/24/19 20:14 EKG Documentation Completion [RC] URGENT 02/24/19 20:16 Glucose [Blood Glucose Check, Bedside] [RC] ONETIME
[2019-02-24 22:12] VITALS: BP 138/81
[2019-02-24] MEDS ORDERED: Ondansetron 4 MG Tab.DIS ONE (22:22)
== END 2019-02-24 22:25 | disposition home or self-care (01) ==
LOC: DL.ED 19:49
DX: K52.9 Noninfective gastroenteritis and colitis, unspecified (principal); K21.9 Gastro-esophageal reflux disease without esophagitis; I10 Essential (primary) hypertension; E78.00 Pure hypercholesterolemia, unspecified; E11.9 Type 2 diabetes mellitus without complications; Z79.84 Long term (current) use of oral hypoglycemic drugs; Z79.899 Other long term (current) drug therapy; Z88.1 Allergy status to other antibiotic agents; Z88.5 Allergy status to narcotic agent; Z88.8 Allergy status to other drugs, medicaments and biological substances
CPT/HCPCS: 36415; 71045; 80053; 81001; 82962; 83880; 84484; 85025; 93005; 96374; 99283; A9270; J2405

== ENCOUNTER 2019-03-02 05:20 | Inpatient (IN) | payer MEDICARE, BC ==
[2019-03-02] MEDS ORDERED: Lidocaine 1% 30 ML SDV INJECT ONE (05:50)
[2019-03-02] MEDS ORDERED: Bacitracin Oint 1 GM U/D Packet TOP ONE (05:51)
--- NOTE | 2019-03-02 05:57 | EDM.PDOC ---
"ED HPI GENERAL MEDICAL PROBLEM - General Source of Information: Reports: Patient, RN History Limitations: Reports: No Limitations <Cale Beckman - Last Filed: 03/02/19 07:51> <Castro Inman - Last Filed: 03/02/19 08:35> - General Chief Complaint: Trauma Stated Complaint: FELL Time Seen by Provider: 03/02/19 05:20 - History of Present Illness INITIAL COMMENTS - FREE TEXT/NARRATIVE: ED via wheelchair with family.Patient reports getting up to bathroom half still asleep and fell forward on to face on to soft carpet. Denies neck pain, Pain to nose and forehead. Denies loss of consciousness. Laceration to forehead. Daughter reports patient nauseated when she moves or sits up. No vomiting. Also reports that patient has had multiple falls in past couple of months. Patient lives with son. She is independent with cares. Ambulates with walker at times. Expediences urinary urgency.Patient currently on plavix and aspirin. (Cale Beckman) - Related Data Allergies Allergy/AdvReac Type Severity Reaction Status Date / Time amoxicillin Allergy Hives Verified 03/02/19 05:34 ezetimibe Allergy Cannot Verified 03/02/19 05:34 Remember morphine Allergy Confusion Verified 03/02/19 05:34 moxifloxacin Allergy Cannot Verified 03/02/19 05:34 Remember naproxen [From Aleve] Allergy Cannot Verified 03/02/19 05:34 Remember [place]-Xmb-Xth Reductase Allergy Muscle Verified 03/02/19 05:34 Inhibitor Aches sulindac Allergy Cannot Verified 03/02/19 05:34 Remember Tetracyclines Allergy Cannot Verified 03/02/19 05:34 Remember Home Meds: Home Meds Fenofibrate 160 mg PO DAILY 04/20/15 [History] Metoprolol Succinate [Toprol XL] 100 mg PO DAILY 04/20/15 [History] Valsartan/Hydrochlorothiazide [Valsartan-Hctz 320-25 mg Tab] 1 each PO DAILY 12/31 [History] amLODIPine Besylate [Amlodipine Besylate] 10 mg PO DAILY 04/20/15 [History] metFORMIN [Glucophage] 1,000 mg PO BIDMEALS 04/20/15 [History] Clopidogrel [Plavix] 75 mg PO DAILY 03/24/16 [History] Pantoprazole [ProTONIX] 40 mg PO DAILY 03/24/16 [History] Aspirin 325 mg PO DAILY 03/25/16 [History] Furosemide [Lasix] 20 mg PO DAILY 02/10/17 [History] cloNIDine [Catapres] 0.2 mg PO BID 02/10/17 [History] Cyanocobalamin (Vitamin B-12) [Vitamin B-12] 500 mcg PO DAILY 03/30/18 [History] oxyCODONE HCl/Acetaminophen [Percocet 7.5-325 mg Tablet] 1 tab PO Q8HR PRN 03/30 [History] Calcium Carbonate 600 mg PO DAILY 03/31/18 [History] Cholecalciferol (Vitamin D3) [Vitamin D3] 1,000 unit PO BEDTIME 07/25/18 [ History] [place]-3/DHA/Epa/Fish Oil [[place] 3 500 Softgel] 1,000 mg PO BID 07/25/18 [History ] Propylene Glycol/PEG 400/Pf [Systane 0.3-0.4% Eye Drop] 1 drop OP BID 07/25/18 [ History] glipiZIDE [Glucotrol] 5 mg PO DAILY 07/26/18 [History] Past Medical History - Past Health History Medical/Surgical History: Denies Medical/Surgical History HEENT History: Reports: Impaired Vision Other HEENT History: wears glasses, is leaglly blind Cardiovascular History: Reports: High Cholesterol, Hypertension, Pacemaker, Other (See Below) Other Cardiovascular History: pauses in heart beat Respiratory History: Reports: SOB Gastrointestinal History: Reports: GERD Genitourinary History: Reports: Urinary Incontinence Other Genitourinary History: wears protection REGULATORY AFFAIRS ASSISTANT History: Reports: Musculoskeletal History: Reports: Back Pain, Chronic, Osteoarthritis, Other ( See Below) Other Musculoskeletal History: degenerative disc disease Neurological History: Reports: Headaches, Chronic, Other (See Below) Other Neuro History: cva in 2010 Psychiatric History: Reports: None Endocrine/Metabolic History: Reports: Diabetes, Type II Hematologic History: Reports: None Immunologic History: Reports: None Oncologic (Cancer) History: Reports: None Dermatologic History: Reports: None - Infectious Disease History Infectious Disease History: Reports: Chicken Pox, Measles, Mumps - Past Surgical History Head Surgeries/Procedures: Reports: None Cardiovascular Surgical History: Reports: Pacer Other GI Surgeries/Procedures: 3 feet bowel out, Other Female Surgeries/Procedures: Bladder surgery <Cale Beckman - Last Filed: 03/02/19 07:51> Social & Family History - Family History Family Medical History: Noncontributory - Caffeine Use Caffeine Use: Reports: Coffee - Living Situation & Occupation Living situation: Reports: , Alone Occupation: Retired <Cale Beckman - Last Filed: 03/02/19 07:51> Review of Systems - Review of Systems Review Of Systems: See Below Constitutional: Reports: No Symptoms Eyes: Reports: Other (poor vision) Ears: Reports: No Symptoms Nose: Reports: Epistaxis (with fall stopped at home), Pain Mouth/Throat: Reports: No Symptoms Respiratory: Reports: No Symptoms Cardiovascular: Reports: Lightheadedness (movement) GI/Abdominal: Reports: No Symptoms Genitourinary: Reports: Incontinence, Other (urgency chronic) Musculoskeletal: Reports: No Symptoms. Denies: Neck Pain Skin: Reports: Wound (new laceration to forehead. abrasions to knees old from previous fall), Lumps (forehead) Neurological: Reports: Dizziness, Headache (forehead), Difficulty Walking (uses walker some times). Denies: Confusion, Numbness, Paresthesia, Syncope, Tingling , Tremors, Trouble Speaking, Change in Speech <Cale Beckman - Last Filed: 03/02/19 07:51> ED EXAM, GENERAL - Physical Exam Exam: See Below Exam Limited By: No Limitations General Appearance: Alert, Mild Distress Eye Exam: Bilateral Eye: EOMI, PERRL (2) Ears: Normal External Exam, Normal TMs, Hearing Loss Nose: Nasal Tenderness, Nasal Drainage (dried blood no active bleeding) Throat/Mouth: Normal Inspection, Normal Voice, No Airway Compromise Head: Normocephalic, Other (laceration mid forehead). No: Atraumatic Neck: Normal Inspection. No: Tender Lateral, Tender Midline Respiratory/Chest: No Respiratory Distress, Lungs Clear, Normal Breath Sounds Cardiovascular: Normal Peripheral Pulses, Irregularly Irregular (ocassional paced) GI/Abdominal: Normal Bowel Sounds Back Exam: Full Range of Motion Extremities: Normal Range of Motion, Non-Tender. No: Leg Pain Neurological: Alert, Oriented, Normal Cognition, No Motor/Sensory Deficits. No : Confused, Disoriented, Memory Loss Recent Events Psychiatric: Normal Affect, Normal Mood Skin Exam: Warm, Dry, Ecchymosis (forehead), Wound/Incision (2.5cm horizontal laceration to forehead), Other (dried abrasion left knee , superficial scratch right knee) <Cale Beckman Vimal - Last Filed: 03/02/19 07:51> ED TRAUMA PROCEDURES - Laceration/Wound Repair Lower Medial Head Lac/Wound Length In cm: 2.5 Appearance: Superficial Distal NVT: Neuro & Vascular Intact Anesthetic Type: Local Local Anesthesia - Lidocaine (Xylocaine): 1% Plain Local Anesthetic Volume: 1cc Skin Prep: Chlorhexidine (Hibiciens), Saline Closed With: Sutures Suture Size: 4-0 # of Sutures: 4 Suture Type: Nylon, Interrupted Sterile Dressing Applied: Nurse Tetanus Status Addressed: Yes Complications: No <Cale Beckman - Last Filed: 03/02/19 07:51> Course <Cale Beckman - Last Filed: 03/02/19 07:51> <Castro Inman - Last Filed: 03/02/19 08:35> - Orders/Labs/Meds Orders: Active Orders 24 hr Category Date Time Status EKG 12 Lead [EKG Documentation Completion] [RC] URGENT Care 03/02/19 05:40 Active CULTURE URINE [RM] Urgent Lab 03/02/19 06:30 Received Labs: Laboratory Tests 03/02/19 03/02/19 03/02/19 Range/Units 05:32 05:32 05:32 WBC 7.3 (5.0-10.0) 10^3/uL RBC 4.58 (4.2-5.4) 10^6/uL Hgb 11.3 L (12.0-16.0) g/dL Hct 35.9 L (37.0-47.0) % MCV 78.4 L (80-100) fL MCH 24.7 L (27.0-34.0) pg MCHC 31.5 L (33.0-35.0) g/dL Plt Count 242 (150-450) 10^3/uL Neut % (Auto) 49.1 (42.2-75.2) % Lymph % (Auto) 31.8 (20.5-50.1) % [place] % (Auto) 7.8 (2-8) % Eos % (Auto) 10.5 H (1.0-3.0) % Baso % (Auto) 0.8 (0.0-1.0) % PT 10.3 (9.0-12.0) SEC INR 1.0 (0.9-1.2) Sodium (135-145) mmol/L Potassium (3.6-5.0) mmol/L Chloride (101-111) mmol/L Carbon Dioxide (21.0-31.0) mmol/L Anion Gap BUN (7-18) mg/dL Creatinine (0.6-1.3) mg/dL Est Cr Clr Drug Dosing Estimated GFR (MDRD) BUN/Creatinine Ratio Glucose (74-105) mg/dL Calcium (8.4-10.2) mg/dl Total Bilirubin (0.2-1.0) mg/dL AST (10-42) IU/L ALT (10-60) IU/L Alkaline Phosphatase (42-121) IU/L Troponin I (0.00-0.02) ng/ml Total Protein (6.7-8.2) g/dl Albumin (3.2-5.5) g/dl Globulin Albumin/Globulin Ratio Urine Color (YELLOW) Urine Appearance (CLEAR) Urine pH (5.0-9.0) Ur Specific [place] (1.005-1.030) Urine Protein (NEGATIVE) Urine Glucose (UA) (NEGATIVE) Urine Ketones (NEGATIVE) Urine Occult Blood (NEGATIVE) Urine Nitrite (NEGATIVE) Urine Bilirubin (NEGATIVE) Urine Urobilinogen (0.2-1.0) mg/dL Ur Leukocyte Esterase (NEGATIVE) Urine RBC /HPF Urine WBC (0-5/HPF) /HPF Ur Epithelial Cells (NOT SEEN) /HPF Urine Bacteria (0-FEW/HPF) /HPF Blood Type B NEGATIVE Gel Antibody Screen Negative 03/02/19 03/02/19 Range/Units 05:32 06:30 WBC (5.0-10.0) 10^3/uL RBC (4.2-5.4) 10^6/uL Hgb (12.0-16.0) g/dL Hct (37.0-47.0) % MCV (80-100) fL MCH (27.0-34.0) pg MCHC (33.0-35.0) g/dL Plt Count (150-450) 10^3/uL Neut % (Auto) (42.2-75.2) % Lymph % (Auto) (20.5-50.1) % [place] % (Auto) (2-8) % Eos % (Auto) (1.0-3.0) % Baso % (Auto) (0.0-1.0) % PT (9.0-12.0) SEC INR (0.9-1.2) Sodium 140 (135-145) mmol/L Potassium 3.6 (3.6-5.0) mmol/L Chloride 104 (101-111) mmol/L Carbon Dioxide 23.0 (21.0-31.0) mmol/L Anion Gap 16.6 BUN 23 H (7-18) mg/dL Creatinine 0.8 (0.6-1.3) mg/dL Est Cr Clr Drug Dosing TNP Estimated GFR (MDRD) > 60 BUN/Creatinine Ratio 28.75 Glucose 131 H (74-105) mg/dL Calcium 10.4 H (8.4-10.2) mg/dl Total Bilirubin 0.6 (0.2-1.0) mg/dL AST 35 (10-42) IU/L ALT 37 (10-60) IU/L Alkaline Phosphatase 34 L (42-121) IU/L Troponin I < 0.02 (0.00-0.02) ng/ml Total Protein 7.2 (6.7-8.2) g/dl Albumin 3.8 (3.2-5.5) g/dl Globulin 3.4 Albumin/Globulin Ratio 1.12 Urine Color Yellow (YELLOW) Urine Appearance Clear (CLEAR) Urine pH 8.0 (5.0-9.0) Ur Specific [place] 1.015 (1.005-1.030) Urine Protein 100 H (NEGATIVE) Urine Glucose (UA) Negative (NEGATIVE) Urine Ketones Negative (NEGATIVE) Urine Occult Blood Trace-intact H (NEGATIVE) Urine Nitrite Negative (NEGATIVE) Urine Bilirubin Negative (NEGATIVE) Urine Urobilinogen 0.2 (0.2-1.0) mg/dL Ur Leukocyte Esterase Trace H (NEGATIVE) Urine RBC 5-10 H /HPF Urine WBC 10-20 H (0-5/HPF) /HPF Ur Epithelial Cells Rare (NOT SEEN) /HPF Urine Bacteria Moderate H (0-FEW/HPF) /HPF Blood Type Gel Antibody Screen Meds: Medications Discontinued Medications Generic Name Dose Route Start Last Admin Trade Name Adeel PRN Reason Stop Dose Admin Bacitracin 1 dose 03/02/19 05:51 Bacitracin Oint 1 Gm TOP 03/02/19 05:52 ONETIME ONE Lidocaine HCl 30 ml 03/02/19 05:50 Xylocaine-Mpf 1% INJECT 03/02/19 05:51 ONETIME ONE Ondansetron HCl 4 mg 03/02/19 08:11 03/02/19 08:20 Zofran IV 03/02/19 08:12 4 mg ONETIME ONE Administration - Radiology Interpretation Free Text/Narrative:: Name: SANGEETHA BAZZI Age: 88Years F Date: 03/02/2019 SSN: -- : [id number] Study: CT SPINE CERVICAL WO Requesting Physician: ACLE BECKMAN Images: [id number] Addl Studies: Provided Clinical History: Contrast: Without Contrast Medium: Contrast Amount: Contrast Method: Page 1 of 2 EXAM: CT Cervical Spine Without Contrast EXAM DATE/TIME: 03/02/2019 5:43 AM CLINICAL HISTORY: 88 years old, female; Injury or trauma; Initial encounter; Abrasion; Injury date : Today; Injury details: Fall, on blood thinners TECHNIQUE: Imaging protocol: Axial computed tomography images of the cervical spine without contrast. Coronal and sagittal reformatted images were created and reviewed. Radiation optimization: All CT scans at this facility use at least one of these dose optimization techniques: automated exposure control; mA and/or kV adjustment per patient size (includes targeted exams where dose is matched to clinical indication); or iterative reconstruction. COMPARISON: CT Cervical Spine wo Cont 12/07/2018 4:00 PM FINDINGS: Tubes, catheters and devices: Pacemaker leads are partially visualized. Vertebrae: No spondylolisthesis. No acute fracture or traumatic subluxation. The atlantooccipital and atlantoaxial articulations are intact. Facet joint alignments are maintained. Multilevel degenerative changes of the cervical spine. Discs/Spinal canal/Neural foramina: Age-related degenerative disc disease. Other bones/joints: Occipital condyles are intact. Prevertebral Space: No prevertebral soft tissue swelling. Soft tissues: Unremarkable. Lungs: Lung apices are normal. SANGEETHA BAZZI | Final Radiology Report CONFIDENTIALITY STATEMENT This report is intended only for use by the referring physician, and only in accordance with law. If you received this in error, call [phone]. Page 2 of 2 IMPRESSION: No acute fracture or traumatic subluxation. Thank you for allowing us to participate in the care of your patient. Dictated and Authenticated by: Hussein Rivera MD 03/02/2019 6:08 AM Central Time ( & [facility] Final Radiology Report Call: [phone] assistance Online chat: [email or web address] Name: SANGEETHA BAZZI Age: 88Years F Date: 03/02/2019 SSN: -- : [id number] Study: CT HEAD WO Requesting Physician: CALE BECKMAN Images: [id number] Addl Studies: Provided Clinical History: Contrast: Without Contrast Medium: Contrast Amount: Contrast Method: Page 1 of 2 EXAM: CT Head Without Contrast EXAM DATE/TIME: 03/02/2019 5:43 AM CLINICAL HISTORY: 88 years old, female; Injury or trauma; Initial encounter; Abrasion; Not specified; Injury date: Today; Injury details: Fall, on blood thinner TECHNIQUE: Imaging protocol: Axial computed tomography images of the head without contrast. Coronal and sagittal reformatted images were created and reviewed. Radiation optimization: All CT scans at this facility use at least one of these dose optimization techniques: automated exposure control; mA and/or kV adjustment per patient size (includes targeted exams where dose is matched to clinical indication); or iterative reconstruction. COMPARISON: CT Head wo Cont 02/17/2019 8:51 PM FINDINGS: Brain: Small focus of right frontal encephalomalacia. Chronic lacunar infarcts involving the right basal ganglia and right thalamus. Age-related involutional changes and chronic microvascular ischemic disease. No evidence for acute transcortical infarct. No mass effect or midline shift. No extra-axial collection. No acute intracranial hemorrhage. Basal cisterns are patent. Ventricles: Normal. No ventriculomegaly. Bones/joints: No acute calvarial fracture. Sinuses: Visualized sinuses are unremarkable. No fluid levels. Mastoid air cells: Visualized mastoid air cells are well aerated. No mastoid effusion. Orbits: Bilateral cataract surgery. Soft tissues: Forehead soft tissue hematoma. No radiopaque foreign body. SANGEETHA BAZZI | Final Radiology Report CONFIDENTIALITY STATEMENT This report is intended only for use by the referring physician, and only in accordance with law. If you received this in error, call [phone]. Page 2 of 2 IMPRESSION: 1. Forehead soft tissue hematoma. No radiopaque foreign body. No acute calvarial fracture. 2. No evidence for acute transcortical infarct, acute intracranial hemorrhage, or mass effect. Thank you for allowing us to participate in the care of your patient. Dictated and Authenticated by: Hussein Rivera MD 03/02/2019 6:05 AM Central Time ([place] & [place]) [facility] Final Radiology Report Call: [phone] assistance Online chat: [email or web address] Name: SANGEETHA BAZZI Age: 88Years F Date: 03/02/2019 SSN: -- : [id number] Study: CT SPINE CERVICAL WO Requesting Physician: CALE BECKMAN Images: [id number] Addl Studies: Provided Clinical History: Contrast: Without Contrast Medium: Contrast Amount: Contrast Method: Page 1 of 2 EXAM: CT Cervical Spine Without Contrast EXAM DATE/TIME: 03/02/2019 5:43 AM CLINICAL HISTORY: 88 years old, female; Injury or trauma; Initial encounter; Abrasion; Injury date : Today; Injury details: Fall, on blood thinners TECHNIQUE: Imaging protocol: Axial computed tomography images of the cervical spine without contrast. Coronal and sagittal reformatted images were created and reviewed. Radiation optimization: All CT scans at this facility use at least one of these dose optimization techniques: automated exposure control; mA and/or kV adjustment per patient size (includes targeted exams where dose is matched to clinical indication); or iterative reconstruction. COMPARISON: CT Cervical Spine wo Cont 12/07/2018 4:00 PM FINDINGS: Tubes, catheters and devices: Pacemaker leads are partially visualized. Vertebrae: No spondylolisthesis. No acute fracture or traumatic subluxation. The atlantooccipital and atlantoaxial articulations are intact. Facet joint alignments are maintained. Multilevel degenerative changes of the cervical spine. Discs/Spinal canal/Neural foramina: Age-related degenerative disc disease. Other bones/joints: Occipital condyles are intact. Prevertebral Space: No prevertebral soft tissue swelling. Soft tissues: Unremarkable. Lungs: Lung apices are normal. SANGEETHA BAZZI | Final Radiology Report CONFIDENTIALITY STATEMENT This report is intended only for use by the referring physician, and only in accordance with law. If you received this in error, call [phone]. Page 2 of 2 IMPRESSION: No acute fracture or traumatic subluxation. Thank you for allowing us to participate in the care of your patient. Dictated and Authenticated by: Hussein Rivera MD 03/02/2019 6:08 AM Central Time ([place] & [place]) (Cale Beckman) Departure <Cale Beckman - Last Filed: 03/02/19 07:51> - Departure Time of Disposition: 08:33 Condition: Fair - Discharge Information *PRESCRIPTION DRUG MONITORING PROGRAM REVIEWED*: Not Applicable *COPY OF PRESCRIPTION DRUG MONITORING REPORT IN PATIENT ERWIN: Not Applicable <Castro Inman - Last Filed: 03/02/19 08:35> - Departure Disposition: Admitted As Inpatient 67 Clinical Impression: Dizziness Fall Qualifiers: Encounter type: initial encounter Qualified Code(s): W19.XXXA - Unspecified fall, initial encounter UTI (urinary tract infection) Qualifiers: Urinary tract infection type: site unspecified Hematuria presence: with hematuria Qualified Code(s): N39.0 - Urinary tract infection, site not specified ; R31.9 - Hematuria, unspecified - Discharge Information Care Plan Goals: Discussed the patient's history, examination, CT results, lab results and cares provided with Dr. Flores. Dr. Flores accepted the patient for continued evaluation and management as an observation patient here at [facility] in [place]."
[2019-03-02 06:03] LABS: ANION GAP 16.6; CHLORIDE,CL 104 mmol/L (101-111); SODIUM,NA 140 mmol/L (135-145)
[2019-03-02] MEDS ORDERED: Ondansetron 4 MG/2 ML SDV IV ONE (08:11)
[2019-03-02] MEDS ORDERED: Bisacodyl 10 MG Supp RECTAL PRN (16:15)
[2019-03-02] MEDS ORDERED: Acetaminophen 325 MG Tab PO PRN (16:15)
[2019-03-02] MEDS ORDERED: oxyCODONE 5 MG Tab PO PRN (18:06)
[2019-03-02] MEDS ORDERED: Calcium Carbonate/Vitamin D3 1250 MG-200 Unit Tab PO SCH (18:15)
[2019-03-02] MEDS ORDERED: Oxybutynin 5 MG Tab.ER PO SCH (18:15)
[2019-03-02] MEDS ORDERED: amLODIPine 5 MG Tab PO SCH (18:15)
[2019-03-02] MEDS ORDERED: Bismuth Subsalicylate 262 MG Tab.Chew PO PRN (18:25)
[2019-03-02] MEDS: guaiFENesin/Dextromethorphan 100-10 MG/5 ML Soln 5 ML Cup PO PRN (18:32)
[2019-03-02] MEDS ORDERED: VIT D3 PO SCH (20:24)
[2019-03-02] MEDS ORDERED: CALCIUM CITRATE PO SCH (20:24)
[2019-03-02] MEDS ORDERED: OXYBUTYNIN 10 MG PO SCH (20:35)
[2019-03-02] MEDS ORDERED: AMLODIPINE 10 MG PO SCH ×2 (20:43→22:15)
[2019-03-02] MEDS ORDERED: Patient's Own Medication 1 Each PO SCH ×2 (21:00→21:15)
[2019-03-02] MEDS ORDERED: cloNIDine 0.1 MG Tab PO SCH (21:00)
[2019-03-02] MEDS: VALSARTAN PO SCH (22:12)
[2019-03-02] MEDS: HYDROCHLOROTHIAZIDE PO SCH (22:12)
[2019-03-02] MEDS: METOPROLOL SUCCINATE 100 MG PO SCH (23:05)
[2019-03-02] MEDS: Clopidogrel 75 MG Tab PO SCH (23:06)
[2019-03-02] MEDS: METFORMIN 1000 MG PO SCH (23:07)
[2019-03-02] MEDS: cloNIDine 0.1 MG Tab PO SCH ×2 (23:12→23:53)
[2019-03-02] MEDS: Cholecalciferol (Vitamin D3) 1,000 Unit Tab PO SCH (23:21)
[2019-03-02] MEDS: VIT D3 PO SCH (23:54)
[2019-03-02] MEDS: CALCIUM CITRATE PO SCH (23:54)
[2019-03-02] MEDS: MAGNESIUM OXIDE PO SCH (23:56)
[2019-03-02] MEDS: OXYBUTYNIN 10 MG PO SCH (23:58)
[2019-03-02] MEDS: AMLODIPINE 10 MG PO SCH (23:58)
[2019-03-03] MEDS: guaiFENesin/Dextromethorphan 100-10 MG/5 ML Soln 5 ML Cup PO PRN (00:47)
[2019-03-03] MEDS: cloNIDine 0.1 MG Tab PO SCH ×2 (08:51→20:30)
[2019-03-03] MEDS: glipiZIDE 5 MG Tab PO SCH (08:52)
[2019-03-03] MEDS: Furosemide 20 MG Tab PO SCH (08:53)
[2019-03-03] MEDS: METFORMIN 1000 MG PO SCH ×2 (08:53→17:51)
[2019-03-03] MEDS: METOPROLOL SUCCINATE 100 MG PO SCH (08:54)
[2019-03-03] MEDS: MAGNESIUM OXIDE PO SCH (08:54)
[2019-03-03] MEDS: Pantoprazole 40 MG Tab.CR PO SCH (08:55)
[2019-03-03] MEDS: HYDROCHLOROTHIAZIDE PO SCH (08:56)
[2019-03-03] MEDS: VALSARTAN PO SCH (08:56)
[2019-03-03] MEDS ORDERED: Hydrochlorothiazide 25 MG Tab PO SCH (09:00)
[2019-03-03] MEDS ORDERED: MAGNESIUM OXIDE PO SCH (09:00)
[2019-03-03] MEDS ORDERED: GLIPIZIDE 5 MG PO SCH (09:00)
[2019-03-03] MEDS ORDERED: cefTRIAXone 1 GM in Sodium Chloride 0.9% 50 ML IV SCH (11:00)
[2019-03-03] MEDS: OMEGA ACID ETHYL ESTERS PO SCH ×2 (12:44→20:24)
[2019-03-03] MEDS: OXYBUTYNIN 10 MG PO SCH (12:44)
--- NOTE | 2019-03-03 14:56 | HP ---
REASON FOR ADMISSION: Fall at home with contusions of face. HISTORY OF PRESENT ILLNESS: Saba Ball is an 88-year-old lady who lives at home. She apparently got up during the night to go to the bathroom. She said that she was in a hurry and did not put on her slippers or take her walker and subsequently fell striking her forehead. It was unclear if she had turned on the lights prior to going to the bathroom. This fall is significant and that this is third visit to the emergency room since 02/17/2019. She also fell at home on 02/17/2019, similar circumstances. On the 02/24/2019, she felt dizzy, came in, stroke was ruled out, and then last night, fell again. She denied dizziness last night and felt that it was more an issue of rushing and not bothering to take precautions to prevent falls. This was discussed with her and her daughter and this will be mentioned again at the end of the dictation as far as future fall prevention goes. PAST MEDICAL HISTORY: History of abdominal aortic aneurysm without rupture or leakage, cerebrovascular disease, degenerative disk disease of lumbar spine, type 2 diabetes, dyslipidemia, hypertension, osteoarthritis, permanent pacemaker, gout. PAST SURGICAL HISTORY: Permanent pacemaker in 2018, hysterectomy at age 31 with later removal of the ovaries. SOCIAL HISTORY: She is . Lives in [place]. A son lives with her; her daughter, Herlinda, is involved in her care as well. She is a former smoker of cigarettes and quit in 1980. She has never used smokeless tobacco and drinks only a rare social alcohol. IMMUNIZATIONS: Appear up to date. She has had both PCV 13 and PCV 23. She had Zostavax in 2012. CURRENT MEDICATIONS: Reviewed and reconciled in [facility]. ALLERGIES: She has multiple allergies and lists amoxicillin, moxifloxacin, tetracycline, Zetia, morphine, naproxen, statins, sulindac. She cannot remember most of the allergies or intolerances. REVIEW OF SYSTEMS: She has occasional dizziness, but denied that dizziness was part of the reason that she fell this time, although she did hit her head. There was no loss of consciousness. No change in vision or hearing. She denies any other trauma. She did sustain a large laceration to the forehead. She is on Plavix and aspirin, so there was quite a bit of bleeding. She was nauseous, but had no vomiting. She is otherwise independent. No shortness of breath. No abdominal pain. No recent change in bowel or bladder habits. No blood in mouth or rectum. No recent fever, chills, or antibiotic use. PHYSICAL EXAMINATION: General: She is a pleasant lady, seated in her room. She voices no concerns or complaints. Vital Signs: Blood pressure 167/78, pulse 76, respiratory rate 20, oxygen saturation 97% on room air. She is afebrile. Weight 149 pounds 6.4 ounces, height 5 feet 5 inches. HEENT: She has a large bandage on the left forehead where she sustained a large laceration. Otherwise, extraocular motions are intact. Pupils equally round and reactive to light. There is no trauma to the mouth or teeth. Neck: Supple and unremarkable. Chest: Showed clear but diminished bilateral breath sounds. Heart: Showed regular rate and rhythm. Abdomen: Soft and benign. Neurologic: There were no gross motor or sensory deficits. LABORATORY DATA: CBC showed a hemoglobin and hematocrit of 11 and 36. White count and platelets normal. Baseline INR was normal. Electrolytes within normal limits. BUN and creatinine were 23 and 0.8 with a GFR greater than 60. Nonfasting blood sugar was 131. LFTs were unremarkable. Troponin was negative at less than 0.02. Urinalysis showed clear yellow urine with a specific gravity of 1.015. There were 5 to 10 rbc's, 10 to 20 wbc's, moderate bacteria. Urine culture was ordered and results are pending. IMAGING STUDIES: In the emergency department, a head CT, C-spine CT, and x-rays of the facial bones were performed. CT of the cervical spine showed no acute fracture or subluxation. There are multilevel degenerative changes of the cervical spine. CT scan of the head showed chronic microvascular changes with infarctions in the right basal ganglia and the right thalamus with an area of encephalomalacia in the right frontal lobe. There were no acute findings except for hematoma of the left forehead. There were no bony injuries to the skull. CT scan of the maxillary bones and sinuses showed no acute fracture. IMPRESSION: An 88-year-old lady who now presents following another fall at home during the night. She was admitted for observation due to contusion to the head. After discussing this with her, and earlier with her family in the ER, it would seem that the falls have happened at night where she gets up from bed, is still sleepy, does not follow safety precautions to prevent the falls and has fallen because of this. She and her daughter have now decided that they will put a bedside commode next to the bed. She will need only to stand, use the commode and get back in bed to prevent the need to go to the bathroom with the risk of another fall. They both feel that this will go a long way to preventing another fall. We did have Occupational and Physical Therapy evaluate her and they felt that she did well. She got up safely. She was able to ambulate independently safely and they feel there is no further need for any work with Physical and Occupational Therapy. We will continue her usual medications. Her blood sugars have been well controlled since admission. If she does well overnight, is likely that she can be discharged to home in the morning and the case was signed out to the incoming hospitalist for disposition. CONDITION AT THE TIME OF ADMISSION: Hemodynamically and neurologically stable. CODE STATUS: DNR/DNI. [facility] /[id number] MTDD
--- NOTE | 2019-03-03 14:58 | PN ---
DATE: 03/03/2019 HISTORY: Mrs. Quinn Bills is an 88-year-old female with medical history significant for hypertension, hyperlipidemia, type 2 diabetes mellitus. She was admitted to the hospital after having a fall. She fell down while going to the bathroom. She tripped over the rug and fell down. She had a CT scan of the head and also CT scan of the cervical spine, which are within normal limits. For the last 24 hours, the patient continues to have pain to the right side of the neck. She grades the pain as 7/10 in intensity, aggravated on movement, relieved partially with pain medication, nonradiating in nature, not associated with any nausea or vomiting. Denies any headache. No changes in the vision. No weakness to her extremities. REVIEW OF SYSTEMS: Cardiovascular, respiratory, gastrointestinal, neurology, constitutional were all evaluated. PHYSICAL EXAMINATION: Vital Signs: Temperature of 98.7, pulse of 69, blood pressure 161/64, respiratory rate of 20, saturating at 94%. General Appearance: The patient is well oriented to time, place, and person. Follows commands spontaneously. Cardiovascular: S1 and S2 heard with normal intensity. No gallops. Respiratory System: Clear to auscultation bilaterally. No wheeze. No crepitations. Abdomen: Soft. Bowel sounds positive. Nontender. No rigidity. Extremities: No edema in bilateral lower extremities. MEDICATIONS: Reviewed. Continue the same. Continue; 1. Lasix 20 mg daily. 2. Glipizide 5 mg daily. 3. Metformin 1000 mg twice a day. 4. Toprol-XL 1 tablet daily. 5. Diovan with hydrochlorothiazide 1 tablet daily. 6. Amlodipine 10 mg daily. 7. Magnesium oxide 2 tablet daily. 8. Oxycodone 5 mg every 8 hours as needed for pain. LABS: Reviewed. No new labs ordered for today. ASSESSMENT: 1. Status post fall. 2. Right-sided neck pain, possible muscular sprain. 3. Hypertension, uncontrolled. 4. Type 2 diabetes mellitus, uncontrolled. 5. Hyperlipidemia. PLAN: 1. Right-sided neck pain. The patient continues to have the neck pain. The patient fell down at her home after she tripped over the rug. She will be evaluated by Physical Therapy and Occupational Therapy. We will continue the oxycodone for pain control. She had a CT scan of the head and also the cervical spine with no evidence of fractures noted at this time. 2. Hypertension, uncontrolled. The patient noted to have elevated blood pressure. We resumed home regimen. We will continue the same. One can use clonidine 0.1 mg as needed for systolic blood pressure greater than 160. The elevated blood pressure could be the reason for the strain and pain. 3. Type 2 diabetes mellitus. The patient is currently on oral agents. Check her fingersticks with each meals, have her on supplemental scale insulin. Her blood sugar seems to be trending down at this time. 4. DVT prophylaxis. We will have her on heparin for DVT prophylaxis. [facility] /[id number]
[2019-03-03] MEDS: Heparin Sodium 5,000 Units/ML Vial SUBCUT SCH ×2 (15:00→22:40)
[2019-03-03] MEDS: OXYCODONE PO PRN (15:01)
[2019-03-03] MEDS: APAP PO PRN (15:01)
[2019-03-03] MEDS: AMLODIPINE 10 MG PO SCH (17:50)
[2019-03-03] MEDS: Clopidogrel 75 MG Tab PO SCH (17:50)
[2019-03-03] MEDS: VIT D3 PO SCH (17:52)
[2019-03-03] MEDS: CALCIUM CITRATE PO SCH (17:52)
[2019-03-03] MEDS: Cholecalciferol (Vitamin D3) 1,000 Unit Tab PO SCH (20:35)
[2019-03-03] MEDS: Sodium Chloride 0.9% 10 ML Syringe FLUSH PRN (20:40)
[2019-03-04] MEDS: APAP PO PRN ×3 (01:04→19:17)
[2019-03-04] MEDS: OXYCODONE PO PRN ×3 (01:04→19:17)
[2019-03-04] MEDS: Heparin Sodium 5,000 Units/ML Vial SUBCUT SCH ×3 (05:55→21:39)
[2019-03-04] MEDS: Ciprofloxacin in D5W 400 MG in Premix Bag 1 BAG IV SCH ×4 (10:45→21:37)
[2019-03-04] MEDS: Sodium Chloride 0.9% 10 ML Syringe FLUSH PRN (10:47)
[2019-03-04] MEDS: glipiZIDE 5 MG Tab PO SCH (10:56)
[2019-03-04] MEDS: cloNIDine 0.1 MG Tab PO SCH ×2 (10:57→21:38)
[2019-03-04] MEDS: Furosemide 20 MG Tab PO SCH (10:57)
[2019-03-04] MEDS: Pantoprazole 40 MG Tab.CR PO SCH (10:57)
[2019-03-04] MEDS: METFORMIN 1000 MG PO SCH (11:21)
[2019-03-04] MEDS: OMEGA ACID ETHYL ESTERS PO SCH ×2 (11:27→21:38)
[2019-03-04] MEDS: MAGNESIUM OXIDE PO SCH (11:29)
[2019-03-04] MEDS: HYDROCHLOROTHIAZIDE PO SCH (11:30)
[2019-03-04] MEDS: VALSARTAN PO SCH (11:30)
[2019-03-04] MEDS: METOPROLOL SUCCINATE 100 MG PO SCH (11:37)
--- NOTE | 2019-03-04 12:44 | PN ---
DATE: 03/04/2019 HISTORY: Mrs. Quinn Bills is an 88-year-old female with medical history significant for hypertension, hyperlipidemia, type 2 diabetes mellitus, admitted with having a fall at home and noted to have right neck pain. The patient had a CT scan of the head. CT scan of the cervical spine and maxillary sinus, which did not show any acute fractures. She is also noted to have urinary tract infection on this admission, requiring IV antibiotics. For the last 24 hours, the patient continues to have pain. The pain is mostly on the right side of the neck and also to the right shoulder. The patient also noted to have swelling of the right shoulder at this juncture. She grades the pain as 10/10 in intensity, aggravated on movement, relieved with pain medication. She has been receiving cold and hot packs and also pain medications which seems to be improving her pain. She denies any nausea or vomiting. Denies any chest pain. No shortness of breath. No abdominal pain. REVIEW OF SYSTEMS: Cardiovascular; respiratory; gastrointestinal; neurology; constitutional were all evaluated. PHYSICAL EXAMINATION: Vital Signs: Temperature of 98.3, pulse of 63, blood pressure of 155/54, respiratory rate of 20, saturating at 95% on room air. General Appearance: The patient is well oriented to time, place, and person. Follows commands spontaneously. Cardiovascular: S1 and S2 heard with normal intensity. No gallops. Respiratory: Clear to auscultation bilaterally. No wheeze. No crepitations. Abdomen: Soft. Bowel sounds positive. Nontender. No rigidity. Extremities: No edema of bilateral lower extremities. NEUROLOGICAL: No gross focal neurological deficit. MEDICATIONS: Reviewed. Continue with: 1. Norvasc 10 mg daily. 2. Pepto-Bismol 262 mg every 6 hours as needed for diarrhea. 3. Ciprofloxacin IV q.12 hourly. 4. Clonidine 0.1 mg twice a day. 5. Plavix 75 mg daily. 6. Lasix 20 mg daily. 7. Glipizide 5 mg daily. 8. Robitussin as needed for cough. 9. Heparin 5000 subcutaneous q.8 hourly. 10.Metformin 1000 mg twice a day. 11.Toprol-XL 100 mg daily. LABORATORY DATA: Labs reviewed. Blood sugar of 138. MICROBIOLOGY: The patient's urine culture is positive for enterococcus faecalis and E. coli. Both sensitive to ciprofloxacin. ASSESSMENT: 1. Status post fall. 2. Right-sided cervical pain. 3. Right-sided shoulder pain. 4. Hypertension. 5. Type 2 diabetes mellitus. 6. Hyperlipidemia. PLAN: 1. Right-sided neck pain and shoulder pain. The patient had a fall. The patient had a CT scan of the head, cervical spine, and also the maxillary sinuses which were within normal limits. No acute fractures noted. She is complaining of increasing pain and swelling to the right shoulder. We will get x-ray of the right shoulder and we will closely follow. We will continue with the cold packs. She has been on oral pain medications. Continue the same. 2. Hypertension, seems to be improved. Continue with current antihypertensive medications. She has been on clonidine; continue the same. 3. Type 2 diabetes mellitus. The patient noted to be on oral agents with glipizide and metformin. Her blood sugar this morning is at 138. Check her fingersticks with each meals; have her on supplemental scale. 4. Urinary tract infection. She is noted to have Escherichia coli, and Enterococcus in the urine culture. Both sensitive to ciprofloxacin. We will change IV antibiotic to ciprofloxacin IV and we will closely follow. 5. DVT prophylaxis. Continue with heparin for DVT prophylaxis. [facility] /[id number]
[2019-03-04] MEDS: Oxybutynin 5 MG Tab.ER PO SCH (12:54)
--- NOTE | 2019-03-04 13:25 | CR ---
Clinical history: 88-year-old female right shoulder pain. Interpretation: (2 views) markedly abnormal. Complete loss of the expected spacing between the acromion process scapula and the head of the right humerus, with dense reactive sclerosis indicating chronic rotator cuff tear/arthritis. Irregularity and calcifications soft tissues adjacent to the greater tuberosity proximal humerus suggests probable older trauma. No sign of anterior dislocation. No other fracture appreciated and the underlying ribs, right hemithorax unremarkable. Right lung is clear. Suggest CT scan right shoulder may prove helpful.
[2019-03-04] MEDS ORDERED: Polyethylene Glycol 3350 Powder 17 GM Packet PO PRN (13:31)
[2019-03-04] MEDS: Clopidogrel 75 MG Tab PO SCH (16:59)
[2019-03-04] MEDS: metFORMIN 500 MG Tab PO SCH (16:59)
--- NOTE | 2019-03-04 17:01 | CT ---
Clinical history: 88-year-old female pain and swelling right shoulder (recent fall). Suspicious appearance plain film. TECHNIQUE: Volume acquisition of data unenhanced CT scan of the shoulders bilaterally (reconstruction right shoulder) obtained with patient lying supine on the Siemens multi slice scanner [place], [place]. All data archived in the PACS system for storage, reformatting axial/sagittal/coronal planes and study. Interpretation: Abnormal. 1. Old nondisplaced fracture greater tuberosity lateral aspect of the humeral head with associated marginal sclerosis confirmed. 2. *Abnormal elevation of the humeral head with complete loss of the normal spacing between the acromion process scapula and head of the humerus. Impaction of the humeral head on acromion (dense reactive sclerosis). Chronic rotator cuff tear/atrophy. 3. Reactive arthritic changes ipsilateral acromioclavicular joint. 4. No acromioclavicular separation or acute glenohumeral dislocation. 5. No scapular fractures. Underlying ribs unremarkable. CONCLUSION: No acute fracture or dislocation right shoulder.
[2019-03-04] MEDS: amLODIPine 5 MG Tab PO SCH (17:04)
[2019-03-04] MEDS: VIT D3 PO SCH (17:07)
[2019-03-04] MEDS: CALCIUM CITRATE PO SCH (17:07)
[2019-03-04] MEDS: Menthol/Methyl Salicylate 85 GM Tube TOP PRN (17:08)
[2019-03-04] MEDS: Cholecalciferol (Vitamin D3) 1,000 Unit Tab PO SCH (21:38)
[2019-03-05] MEDS: Heparin Sodium 5,000 Units/ML Vial SUBCUT SCH ×3 (05:58→21:06)
[2019-03-05] MEDS: metFORMIN 500 MG Tab PO SCH ×2 (09:35→18:24)
[2019-03-05] MEDS: Pantoprazole 40 MG Tab.CR PO SCH (09:36)
[2019-03-05] MEDS: glipiZIDE 5 MG Tab PO SCH (09:36)
[2019-03-05] MEDS: Metoprolol Succinate 50 MG Tab.ER PO SCH (09:37)
[2019-03-05] MEDS: cloNIDine 0.1 MG Tab PO SCH ×2 (09:39→21:06)
[2019-03-05] MEDS: Furosemide 20 MG Tab PO SCH (09:39)
[2019-03-05] MEDS: Ciprofloxacin in D5W 400 MG in Premix Bag 1 BAG IV SCH ×4 (09:40→21:05)
[2019-03-05] MEDS: Sodium Chloride 0.9% 10 ML Syringe FLUSH PRN (09:42)
[2019-03-05] MEDS: MAGNESIUM OXIDE PO SCH (09:55)
[2019-03-05] MEDS: OMEGA ACID ETHYL ESTERS PO SCH ×2 (09:56→21:06)
[2019-03-05] MEDS: VALSARTAN PO SCH (09:57)
[2019-03-05] MEDS: HYDROCHLOROTHIAZIDE PO SCH (09:57)
[2019-03-05] MEDS: APAP PO PRN ×2 (11:53→22:14)
[2019-03-05] MEDS: OXYCODONE PO PRN ×2 (11:53→22:14)
--- NOTE | 2019-03-05 12:00 | PN ---
DATE: 03/05/2019 SUBJECTIVE: Mrs. Saba Ball is an 88-year-old female with a medical history significant for hypertension, hyperlipidemia, type 2 diabetes mellitus, admitted with having a fall at home, noted to have right neck pain. The patient also noted to have urinary tract infection requiring IV antibiotics. For the last 24 hours, the patient continues to have pain to the right side of the neck and also the right shoulder. The patient had a CT scan of the right shoulder, which did not show any acute fracture, but noted to have chronic hairline fracture along with possible rotator cuff tear. She grades the pain as 5/10 to 6/10 in intensity, aggravated on movement, relieved with pain medication, nonradiating type of pain. She also complains of increased frequency in urination. She denies any burning micturition. She denies any fevers or chills. No nausea. No vomiting. No diarrhea. REVIEW OF SYSTEMS: Cardiovascular, respiratory, gastrointestinal, neurology, and constitutional were all evaluated. PHYSICAL EXAMINATION: Vital Signs: Temperature of 98.4, pulse of 63, blood pressure 146/46, respiratory rate of 20, saturating at 95% on room air. General Appearance: The patient is well-oriented to time, place, and person. Follows commands spontaneously. Cardiovascular: S1 and S2 heard with normal intensity. No gallops. Respiratory: Clear to auscultation bilaterally. No wheeze. No crepitations. Abdomen: Soft. Bowel sounds positive. Nontender. No rigidity. Extremities: No edema in bilateral lower extremities. Neurologic: No gross focal neurological deficit. MEDICATIONS: Reviewed. Continue with: 1. Tylenol 650 every 4 hours as needed for pain. 2. Norvasc 10 mg daily. 3. Vitamin D3 1000 mg at bedtime. 4. Ciprofloxacin IV q.12 hourly. 5. Plavix 75 mg daily. 6. Lasix 20 mg daily. 7. Glipizide 5 mg daily. 8. Metformin 1000 mg b.i.d. 9. Toprol-XL 100 mg daily. 10.Valsartan with hydrochlorothiazide 1 tablet daily. 11.Magnesium oxide 2 tablets daily. 12.Protonix 40 mg daily. LABORATORY DATA: Labs reviewed. Creatinine 1, glucose 122. ASSESSMENT: 1. Urinary tract infection with Enterococcus faecalis and Escherichia coli. 2. Intractable pain of the right shoulder and the right side of the neck. 3. Status post fall at home. 4. Hypertension. 5. Type 2 diabetes mellitus. 6. Hyperlipidemia. 7. Generalized debility. PLAN: 1. Urinary tract infection. The patient is noted to have E. coli and Enterococcus faecalis in the urine culture. She is currently on IV antibiotics, ciprofloxacin. We will continue the same. She continues to have frequency in urination. She denies any burning micturition and bladder spasms. 2. Generalized debility. The patient had a fall at her home and continues to have weakness and tiredness. She was evaluated by Physical Therapy and Occupational Therapy. She continues to have pain to the right shoulder and also to the right side of the neck. She had a CT scan of the right shoulder, which shows old nondisplaced fracture of the greater tuberosity, lateral aspect of the humeral head with an abnormal elevation of the humeral head with complete loss of the normal spacing between the acromion process, scapula, and head of the humerus. Impaction of the humeral head on acromion. Chronic rotator cuff tear and atrophy noted. We will continue physical therapy and occupational therapy while in the hospital. Continue with pain medications. 3. Hypertension. The patient noted to be on antihypertensive medication. Her blood pressure seems to be in acceptable range. Try to avoid any hypotensive episodes. 4. Type 2 diabetes mellitus. Her blood sugars are in acceptable range. She is noted to be on oral agents, continue the same. Check her fingersticks with each meals, have her on supplemental scale insulin as needed. 5. DVT prophylaxis. Continue with heparin for DVT prophylaxis. [facility] /[id number]
[2019-03-05] MEDS: Oxybutynin 5 MG Tab.ER PO SCH (12:45)
[2019-03-05] MEDS: Clopidogrel 75 MG Tab PO SCH (18:24)
[2019-03-05] MEDS: amLODIPine 5 MG Tab PO SCH (18:37)
[2019-03-05] MEDS: CALCIUM CITRATE PO SCH (19:19)
[2019-03-05] MEDS: VIT D3 PO SCH (19:19)
[2019-03-05] MEDS: Cholecalciferol (Vitamin D3) 1,000 Unit Tab PO SCH (21:06)
[2019-03-06] MEDS: Heparin Sodium 5,000 Units/ML Vial SUBCUT SCH ×3 (05:40→22:05)
[2019-03-06] MEDS: Metoprolol Succinate 50 MG Tab.ER PO SCH ×2 (08:54→14:37)
[2019-03-06] MEDS: metFORMIN 500 MG Tab PO SCH ×2 (08:54→17:44)
[2019-03-06] MEDS: Pantoprazole 40 MG Tab.CR PO SCH (08:55)
[2019-03-06] MEDS: cloNIDine 0.1 MG Tab PO SCH ×2 (08:56→20:15)
[2019-03-06] MEDS: Furosemide 20 MG Tab PO SCH (08:56)
[2019-03-06] MEDS: glipiZIDE 5 MG Tab PO SCH (08:56)
[2019-03-06] MEDS: Ciprofloxacin in D5W 400 MG in Premix Bag 1 BAG IV SCH ×2 (09:01)
[2019-03-06] MEDS: HYDROCHLOROTHIAZIDE PO SCH (10:09)
[2019-03-06] MEDS: VALSARTAN PO SCH (10:09)
[2019-03-06] MEDS: OMEGA ACID ETHYL ESTERS PO SCH ×2 (10:10→20:16)
[2019-03-06] MEDS: MAGNESIUM OXIDE PO SCH (10:10)
[2019-03-06] MEDS: Menthol/Methyl Salicylate 85 GM Tube TOP PRN (10:14)
--- NOTE | 2019-03-06 12:00 | PN ---
DATE: 03/06/2019 SUBJECTIVE: Mrs. Saba Ball is an 88-year-old female with medical history significant for hypertension, hyperlipidemia, and type 2 diabetes mellitus; admitted for having a fall at her home and noted to have right neck pain, right shoulder pain, and urinary tract infection at the time of admission. For the last 24 hours, the patient continues to have pain, though improved from the time of admission. She grades the pain as 4 to 5/10 in intensity, aggravated on movement, relieved with pain medication, nonradiating type of pain, and not associated with nausea or vomiting. Denies any chest pain. No shortness of breath. She is noted to have lower diastolic pressure. REVIEW OF SYSTEMS: Cardiovascular, respiratory, gastrointestinal, neurology, and constitutional were all evaluated. PHYSICAL EXAMINATION: Vital Signs: Temperature of 98.2, pulse of 68, blood pressure 144/50, respiratory rate of 20, and saturating at 96% on room air. General Appearance: The patient is well oriented to time, place, and person. Follows commands spontaneously. Cardiovascular: S1 and S2 heard with normal intensity. No gallops. Respiratory: Clear to auscultation bilaterally. No wheeze. No crepitations. Abdomen: Soft. Bowel sounds are positive. Nontender. No rigidity. No guarding. No rebound tenderness. Extremities: No edema in bilateral lower extremities. MEDICATIONS: Reviewed. Continue with: 1. Tylenol 650 every 4 hours as needed for pain and fever. 2. Norvasc 10 mg daily. 3. Pepto-Bismol 262 mg every 6 hours. 4. Vitamin D3 at 1000 units at bedtime. 5. Ciprofloxacin q.12 hourly IV. 6. Plavix 75 mg daily. 7. Lasix 20 mg daily. 8. Glipizide 5 mg daily. 9. Heparin 5000 subcutaneous q.8 hourly. 10.Metformin 1000 mg b.i.d. 11.Toprol-XL 100 mg daily. 12.Diovan and hydrochlorothiazide daily. 13.Protonix 40 mg daily. LABORATORY DATA: Blood glucose of 111. ASSESSMENT: 1. Status post fall. 2. Right-sided neck pain and shoulder pain. 3. Right shoulder rotator cuff tear. 4. Hypertension. 5. Type 2 diabetes mellitus. 6. Hyperlipidemia. 7. Generalized debility. 8. Urinary tract infection. PLAN: 1. Hypertension. The patient noted to have lower diastolic pressures. We will discontinue the Norvasc and hydrochlorothiazide. We will continue with Catapres and metoprolol for now. We will closely follow. Further titrate up the medication to optimize her blood pressure. 2. Urinary tract infection. The patient noted to have E. coli and Enterococcus faecalis, both sensitive to ciprofloxacin. She has received IV Cipro. We will change her to oral Cipro at this time. 3. Intractable pain. The patient noted to have neck pain and also right shoulder pain. She is noted to have a right shoulder rotator cuff tear as per CT scan of the right shoulder. She would need Orthopedic consultation as an outpatient. We will continue with current pain regimen. 4. Type 2 diabetes mellitus. Continue with current oral agents. We will check her fingersticks with each meals, have her on supplemental scale insulin as needed. 5. Generalized debility. She is able to ambulate with help of a walker. Upon discharge, she will need home health care. [facility] /[id number]
[2019-03-06] MEDS: Oxybutynin 5 MG Tab.ER PO SCH (13:10)
[2019-03-06] MEDS: OXYCODONE PO PRN ×2 (13:33→22:08)
[2019-03-06] MEDS: APAP PO PRN ×2 (13:33→22:08)
[2019-03-06] MEDS: Clopidogrel 75 MG Tab PO SCH (17:44)
[2019-03-06] MEDS: VIT D3 PO SCH (17:44)
[2019-03-06] MEDS: CALCIUM CITRATE PO SCH (17:44)
[2019-03-06] MEDS: Cholecalciferol (Vitamin D3) 1,000 Unit Tab PO SCH (20:15)
[2019-03-06] MEDS: Ciprofloxacin 500 MG Tab PO SCH (20:15)
[2019-03-07] MEDS: Heparin Sodium 5,000 Units/ML Vial SUBCUT SCH (06:11)
[2019-03-07 07:43] VITALS: BP 133/59
[2019-03-07] MEDS: cloNIDine 0.1 MG Tab PO SCH (08:31)
[2019-03-07] MEDS: metFORMIN 500 MG Tab PO SCH (08:31)
[2019-03-07] MEDS: Metoprolol Succinate 50 MG Tab.ER PO SCH (08:31)
[2019-03-07] MEDS: Pantoprazole 40 MG Tab.CR PO SCH (08:31)
[2019-03-07] MEDS: glipiZIDE 5 MG Tab PO SCH (08:31)
[2019-03-07] MEDS ORDERED: Ciprofloxacin 500 MG Tab PO SCH (08:31)
[2019-03-07] MEDS: MAGNESIUM OXIDE PO SCH (08:31)
[2019-03-07] MEDS: Ciprofloxacin 500 MG Tab PO SCH (08:31)
[2019-03-07] MEDS: OMEGA ACID ETHYL ESTERS PO SCH (08:32)
[2019-03-07] MEDS ORDERED: MAGNESIUM OXIDE PO SCH (10:00)
--- NOTE | 2019-03-07 12:15 | DISCH ---
ADMITTING DIAGNOSIS: Status post fall at home. DISCHARGE DIAGNOSES: 1. Status post fall at home with closed head injury, requiring stitches to the forehead. 2. Right shoulder rotator cuff injury chronic in nature. 3. Urinary tract infection with enterococcus faecalis and E. coli, sensitive to ciprofloxacin. 4. Hypertension, uncontrolled; requiring holding of the Norvasc and Diovan and hydrochlorothiazide and changing Lasix to every other day to avoid hypotensive episodes. 5. Generalized debility with a history of frequent falls needing a walker at home. 6. Home health care referral for closer nursing observation for medication changes. 7. Homebound status secondary to frequent falls and use of walker, requiring home health referral. HISTORY OF PRESENTING ILLNESS: Mrs. Saba Ball is an 88-year-old female with medical history significant for hypertension, hyperlipidemia, type 2 diabetes mellitus, admitted to the hospital after having a fall and noted to have closed head injury resulting in some mild laceration to the forehead. The patient had a CT scan of the head and also a CT scan of the cervical spine, which did not show any acute pathology. The patient is complaining of right- sided neck pain and also to the shoulder pain. The patient had x-ray of the shoulder and also a CT scan of the shoulder on the right side, which showed evidence of chronic right rotator cuff tear. Resulting in chronic pain of the right shoulder. The patient was evaluated by physical therapy and occupational therapy secondary to frequent falls. She would require physical therapy and occupational therapy at home; so a home health referral is made for longterm monitoring for medication changes and close monitoring of her blood pressure and also to continue with physical therapy and occupational therapy secondary to generalized debility and to avoid any falls at home. She will be advised to continue using the walker at home to avoid any falls. She was also noted to have urinary tract infection on this admission. Her urine culture was positive for E. coli and enterococcus faecalis and she was treated with IV ciprofloxacin and later changed to oral ciprofloxacin at the time of discharge. She was noted to have uncontrolled hypertension with low blood pressure diastolics, so we held her Norvasc and Diovan and hydrochlorothiazide. She will continue with the clonidine and Toprol-XL. Her blood pressures improved at this time. She is discharged home in stable condition. She is advised to follow with her primary care physician next 1 week of time. DISCHARGE MEDICATIONS: Include: 1. Tylenol 650 every 4 hours as needed for pain. 2. Aspirin 325 mg daily. 3. Calcium with vitamin D one tablet daily. 4. Vitamin D3, 1000 units daily at bedtime. 5. Ciprofloxacin 500 mg twice a day. 6. Plavix 75 mg daily. 7. Fenofibrate 160 mg daily. 8. Lasix 20 mg every other day. 9. Magnesium oxide 400 mg daily. 10.Icy Hot topical 4 times a day. 11.Toprol-XL 100 mg daily. 12.Latty-3 1000 mg twice a day. 13.Ditropan XL 10 mg daily. 14.Protonix 40 mg daily. 15.Clonidine 0.1 mg twice a day. 16.Glipizide 5 mg daily. 17.Metformin 1000 mg twice a day. 18.Oxycodone with acetaminophen, (Percocet) 7.5/325 mg as needed for pain every 8 hours. The patient is advised to stop taking the Diovan with hydrochlorothiazide and Norvasc. PHYSICAL EXAMINATION: On the day of discharge: Vital Signs: Temperature 98.5, pulse of 54, blood pressure 133/59, respiratory rate of 18, and saturating at 96%. General Appearance: The patient is well oriented to time, place, and person. Follows commands spontaneously. Cardiovascular: S1 and S2 heard with normal intensity. No gallops. Respiratory: Clear to auscultation bilaterally. No wheeze. No crepitations. Abdomen: Soft. Bowel sounds positive. Nontender. No rigidity. Extremities: No edema of bilateral lower extremities. CONDITION ON ADMISSION: Poor. CONDITION ON DISCHARGE: Stable. DISPOSITION: Discharged to home with home health agency with longterm and PT/OT at home. DIET: Cardiac healthy diet with consistent carbohydrate diet. ACTIVITY: As tolerated. The patient is encouraged to use a walker to avoid any falls at home. FOLLOWUP: Follow with primary care physician next 1 week of time. She will be advised to take out the stitches on her appointment with the primary care office. Spent over 35 minutes of time in evaluating and treating this patient and making discharge planning. [facility] /[id number]
[2019-03-07] MEDS: Oxybutynin 5 MG Tab.ER PO SCH (14:11)
[2019-03-08] MEDS ORDERED: Furosemide 20 MG Tab PO SCH (09:00)
== END 2019-03-07 12:40 | disposition home health service (06) | DRG 605 ==
LOC: DL.ED 05:20 → UNDOADMOB 08:34 → DL.MS 08:34 → UNDOADMOB 08:43 → DL.MS 08:43 → INTOOBSV 14:37 → OBSVTOIN 14:37 → DL.MS 03-03 11:36 → OBSVTOIN 03-03 14:37 → DL.MS 03-03 14:37 → UNDODISIN 03-07 12:40
PROVIDERS: ADMIT Internal Medicine; ATTEND Internal Medicine
DX: S01.81XA Laceration without foreign body of other part of head, initial encounter (principal); N39.0 Urinary tract infection, site not specified; E11.9 Type 2 diabetes mellitus without complications; E78.5 Hyperlipidemia, unspecified; I10 Essential (primary) hypertension; M19.91 Primary osteoarthritis, unspecified site; M10.9 Gout, unspecified; H54.7 Unspecified visual loss; E78.00 Pure hypercholesterolemia, unspecified; K21.9 Gastro-esophageal reflux disease without esophagitis; G89.29 Other chronic pain; M54.9 Dorsalgia, unspecified; R31.9 Hematuria, unspecified; R53.81 Other malaise; S46.011A Strain of muscle(s) and tendon(s) of the rotator cuff of right shoulder, initial encounter; B96.20 Unspecified Escherichia coli [E. coli] as the cause of diseases classified elsewhere; B95.2 Enterococcus as the cause of diseases classified elsewhere; W01.0XXA Fall on same level from slipping, tripping and stumbling without subsequent striking against object, initial encounter; Z90.89 Acquired absence of other organs; Z87.891 Personal history of nicotine dependence; Z95.0 Presence of cardiac pacemaker; Z88.1 Allergy status to other antibiotic agents; Y92.009 Unspecified place in unspecified non-institutional (private) residence as the place of occurrence of the external cause; Z86.73 Personal history of transient ischemic attack (TIA), and cerebral infarction without residual deficits; Z79.84 Long term (current) use of oral hypoglycemic drugs
CPT/HCPCS: 36415; 70450; 70486; 72125; 73030-RT; 73200-RT; 80053; 81001; 82565; 82962; 84484; 85025; 85610; 86850; 86900; 86901; 87086; 87088; 87186; 96374; 96375; 97161-GP; 97165-GO; 99285-25; A4217; A9270-GY; G0378; J0696; J0744; J1644; J2405; J7050

== ENCOUNTER 2019-07-09 06:54 | Emergency (ER) | payer MEDICARE, BC ==
[2019-07-09] MEDS ORDERED: Etomidate 2 MG/ML 20 ML SDV IVPUSH ONE (06:55)
[2019-07-09] MEDS ORDERED: Rocuronium 100 MG/10 ML MDV IV ONE (06:55)
[2019-07-09] MEDS ORDERED: Midazolam 50 MG in Sodium Chloride 0.9% 50 ML IV ONE (06:55)
[2019-07-09] MEDS ORDERED: Furosemide 20 MG/2 ML VIAL IVPUSH ONE (07:10)
[2019-07-09] MEDS: Furosemide 40 MG/4 ML VIAL ONE ×2 (07:12→07:23)
[2019-07-09 07:17] LABS: ANION GAP 16.9
[2019-07-09 07:18] LABS: O2 DELIVERY DEVICE NON REBR MASK
[2019-07-09] MEDS ORDERED: Potassium Chloride 100 ML ONE (07:21)
[2019-07-09] MEDS ORDERED: Potassium Chloride 20 MEQ in Premix Bag 1 BAG IV ONE (07:22)
[2019-07-09 07:30] VITALS: BP 173/91; PULSE 127
[2019-07-09 07:32] LABS: PCO2 VENOUS 75 mmHg (41-51); PH,VENOUS 7.15 (7.31-7.41); PO2 VENOUS 47 mmHg (35-42)
[2019-07-09 07:33] LABS: BASE EXCESS VENOUS -3 mmol/l ((-2)-(+3)); BICARBONATE,VENOUS 26 mmol/l (19-25); O2 SATURATION VENOUS 69 % (60-80)
[2019-07-09] MEDS ORDERED: DOPamine/Dextrose 5%-Water 0 MG/0 ML BAG ONE (07:37)
[2019-07-09] MEDS ORDERED: Norepinephrine 4 MG/4 ML SDV ONE ×2 (07:59→08:00)
--- NOTE | 2019-07-09 12:23 | EDM.PDOC ---
Scribed by Mona Quintanilla 07/09/19 1119 for Josefa Andrade NP ED HPI GENERAL MEDICAL PROBLEM - General Chief Complaint: Respiratory Problem Stated Complaint: UNK Time Seen by Provider: 07/09/19 06:56 Source of Information: Reports: EMS, EMS Notes Reviewed, Family, RN History Limitations: Reports: Altered Mental Status - History of Present Illness INITIAL COMMENTS - FREE TEXT/NARRATIVE: 88 year female presents via EMS with respiratory distress; sat's 60-70 when EMS arrived. Son said started to have increased work of breathing yesterday; seemed to improved some; then this am much worse and he called 911. Normally takes her own meds and is ambulatory with self care. Duo neb given by EMS was placed on NRB 100% with sats in the 80s. Increased work of breathing with abdominal seesaw and decreased LOC. Tachy at 130 what appears to be a tachy/ bradi/paced. Hx of CHF, plavix, pacer, and DM (BS 300). Recent admission here and discharged 1 week ago with pneumonia. Lives with son; daughter & son are present and not aware of her Advanced Directives but wants everything done. After being on NRB sats improved to 90% and was able to answer 1 word to questions, but not able to communicate needs. No focal weakness of drooping. Onset: Today Severity: Severe Treatments COLOR BUFFER: Reports: Other Medication(s), Oxygen Other Treatments COLOR BUFFER: neb tx - Related Data Allergies Allergy/AdvReac Type Severity Reaction Status Date / Time amoxicillin Allergy Hives Verified 06/27/19 12:22 ezetimibe Allergy Cannot Verified 06/27/19 12:22 Remember morphine Allergy Confusion Verified 06/27/19 12:22 moxifloxacin Allergy Cannot Verified 06/27/19 12:22 Remember naproxen [From Aleve] Allergy Cannot Verified 06/27/19 12:22 Remember Inqiyvi-Lix-Zil Reductase Allergy Muscle Verified 06/27/19 12:22 Inhibitor Aches sulindac Allergy Cannot Verified 06/27/19 12:22 Remember Tetracyclines Allergy Cannot Verified 06/27/19 12:22 Remember Home Meds: Home Meds Fenofibrate 160 mg PO .1800 04/20/15 [History] Metoprolol Succinate [Toprol XL] 100 mg PO DAILY 04/20/15 [History] metFORMIN [Glucophage] 1,000 mg PO BIDMEALS 04/20/15 [History] Clopidogrel [Plavix] 75 mg PO .1800 03/24/16 [History] Pantoprazole [ProTONIX] 40 mg PO DAILY PRN 03/24/16 [History] Aspirin 325 mg PO DAILY 03/25/16 [History] cloNIDine [Catapres] 0.1 mg PO BID 02/10/17 [History] oxyCODONE HCl/Acetaminophen [Percocet 7.5-325 mg Tablet] 1 tab PO Q8HR PRN 03/30 [History] Cholecalciferol (Vitamin D3) [Vitamin D3] 1,000 unit PO BEDTIME 07/25/18 [ History] Granville-3/DHA/Epa/Fish Oil [[place] 3 500 Softgel] 1,000 mg PO BID 07/25/18 [History ] glipiZIDE [Glucotrol] 5 mg PO DAILY 07/26/18 [History] Calcium Citrate/Vitamin D3 [Citracal + D Maximum Caplet] 1 each PO .1800 [History] Magnesium Oxide [Magnesium] 400 mg PO DAILY 03/02/19 [History] Acetaminophen [Tylenol] 650 mg PO Q4H PRN #30 tablet 03/07/19 [Rx] Furosemide [Lasix] 20 mg PO Q48H 30 Days #15 tablet 03/07/19 [Rx] Menthol/Methyl Salicylate [Icy Hot] 1 gm TOP QID PRN #1 tube 03/07/19 [Rx] levoFLOXacin [Levofloxacin] 250 mg PO DAILY #7 tablet 06/30/19 [Rx] Past Medical History - Past Health History Medical/Surgical History: Denies Medical/Surgical History HEENT History: Reports: Impaired Vision Other HEENT History: wears glasses, is leaglly blind Cardiovascular History: Reports: High Cholesterol, Hypertension, Pacemaker, Other (See Below) Other Cardiovascular History: pauses in heart beat Respiratory History: Reports: SOB Gastrointestinal History: Reports: GERD Genitourinary History: Reports: Urinary Incontinence Other Genitourinary History: wears protection 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: Musculoskeletal History: Reports: Back Pain, Chronic, Osteoarthritis, Other ( See Below) Other Musculoskeletal History: degenerative disc disease Neurological History: Reports: Headaches, Chronic, Other (See Below) Other Neuro History: cva in 2011 Psychiatric History: Reports: None Endocrine/Metabolic History: Reports: Diabetes, Type II Hematologic History: Reports: None Immunologic History: Reports: None Oncologic (Cancer) History: Reports: None Dermatologic History: Reports: None - Infectious Disease History Infectious Disease History: Reports: Chicken Pox, Measles, Mumps - Past Surgical History Head Surgeries/Procedures: Reports: None Cardiovascular Surgical History: Reports: Pacer Other GI Surgeries/Procedures: 3 feet bowel out, Other Female Surgeries/Procedures: Bladder surgery Social & Family History - Family History Family Medical History: Noncontributory - Tobacco Use Smoking Status *Q: Unknown Ever Smoked - Caffeine Use Caffeine Use: Reports: Coffee - Living Situation & Occupation Living situation: Reports: , Alone Occupation: Retired ED ROS GENERAL - Review of Systems Review Of Systems: See Below Constitutional: Reports: Fatigue, Diaphoresis Respiratory: Reports: Shortness of Breath, Wheezing Cardiovascular: Reports: No Symptoms GI/Abdominal: Reports: No Symptoms : Reports: No Symptoms Skin: Reports: No Symptoms Neurological: Reports: No Symptoms Psychiatric: Reports: No Symptoms ED EXAM, GENERAL - Physical Exam Exam: See Below Exam Limited By: Altered Mental Status General Appearance: Lethargic Nose: Normal Inspection, Normal Mucosa, No Blood Throat/Mouth: Normal Inspection, Normal Lips, Normal Teeth, Normal Gums, Normal Oropharynx, Normal Voice, No Airway Compromise Head: Atraumatic, Normocephalic Neck: Normal Inspection, Supple, Non-Tender, Full Range of Motion Respiratory/Chest: Crackles, Rales, Wheezing, Other. No: Rhonchi (See saw appearence of abdomen. Increased work of breathing with resp 26-32) Cardiovascular: Regular Rate, Rhythm, Tachycardia, Other (Mild LE edema clare) GI/Abdominal: Soft, Non-Tender Extremities: Normal Inspection EKG INTERPRETATION EKG Date: 07/09/19 Time: 07:08 (ST with left bundle.) Course - Vital Signs Last Recorded V/S: Last Vital Signs Temp Pulse 127 H 07/09/19 07:28 Resp 26 H 07/09/19 07:28 BP 173/91 H 07/09/19 07:28 Pulse Ox 95 07/09/19 07:28 - Orders/Labs/Meds Orders: Active Orders 24 hr Category Date Time Status EKG Documentation Completion [RC] STAT Care 09/21/19 06:58 Active CULTURE BLOOD [BC] Stat Lab 07/09/19 07:12 Received Labs: Laboratory Tests 07/09/19 07/09/19 07/09/19 Range/Units 06:55 06:55 06:57 WBC 23.9 H (5.0-10.0) 10^3/uL RBC 4.95 (4.2-5.4) 10^6/uL Hgb 11.9 L D (12.0-16.0) g/dL Hct 38.6 (37.0-47.0) % MCV 78.0 L (80-100) fL MCH 24.0 L (27.0-34.0) pg MCHC 30.8 L (33.0-35.0) g/dL Plt Count 367 D (150-450) 10^3/uL Neut % (Auto) 46.6 (42.2-75.2) % Lymph % (Auto) 44.2 (20.5-50.1) % Gaines % (Auto) 8.2 H (2-8) % Eos % (Auto) 0.5 L (1.0-3.0) % Baso % (Auto) 0.5 (0.0-1.0) % Add Manual Diff Yes Neutrophils % (Manual) 51 (42-75) % Band Neutrophils % 1 % Lymphocytes % (Manual) 40 (20-50) % Monocytes % (Manual) 8 (2-8) % Nucleated RBCs 2 /100WBC VBG pH (7.31-7.41) VBG pCO2 (41-51) mmHg VBG pO2 (35-42) mmHg VBG HCO3 (19-25) mmol/l VBG O2 Saturation (60-80) % VBG Base Excess ((-2)-(+3)) mmol/l O2 Delivery Device Sodium 141 (135-145) mmol/L Potassium 3.9 (3.6-5.0) mmol/L Chloride 102 (101-111) mmol/L Carbon Dioxide 26.0 (21.0-31.0) mmol/L Anion Gap 16.9 BUN 26 H (7-18) mg/dL Creatinine 1.1 (0.6-1.3) mg/dL Est Cr Clr Drug Dosing 28.50 mL/min Estimated GFR (MDRD) 47 BUN/Creatinine Ratio 23.63 Glucose 293 H (74-105) mg/dL POC Glucose 300 H (83-110) mg/dl Lactic Acid (0.5-2.2) mmol/L Calcium 9.5 (8.4-10.2) mg/dl Total Bilirubin 0.5 (0.2-1.0) mg/dL AST 31 (10-42) IU/L ALT 20 (10-60) IU/L Alkaline Phosphatase 46 (42-121) IU/L B-Natriuretic Peptide 3260 H (0-100) pg/ml Total Protein 7.7 (6.7-8.2) g/dl Albumin 4.0 (3.2-5.5) g/dl Globulin 3.7 Albumin/Globulin Ratio 1.08 07/09/19 07/09/19 Range/Units 07:12 07:12 WBC (5.0-10.0) 10^3/uL RBC (4.2-5.4) 10^6/uL Hgb (12.0-16.0) g/dL Hct (37.0-47.0) % MCV (80-100) fL MCH (27.0-34.0) pg MCHC (33.0-35.0) g/dL Plt Count (150-450) 10^3/uL Neut % (Auto) (42.2-75.2) % Lymph % (Auto) (20.5-50.1) % Gaines % (Auto) (2-8) % Eos % (Auto) (1.0-3.0) % Baso % (Auto) (0.0-1.0) % Add Manual Diff Neutrophils % (Manual) (42-75) % Band Neutrophils % % Lymphocytes % (Manual) (20-50) % Monocytes % (Manual) (2-8) % Nucleated RBCs /100WBC VBG pH 7.15 L* (7.31-7.41) VBG pCO2 75 H* (41-51) mmHg VBG pO2 47 H (35-42) mmHg VBG HCO3 26 H (19-25) mmol/l VBG O2 Saturation 69 (60-80) % VBG Base Excess -3 L ((-2)-(+3)) mmol/l O2 Delivery Device Non rebr mask Sodium (135-145) mmol/L Potassium (3.6-5.0) mmol/L Chloride (101-111) mmol/L Carbon Dioxide (21.0-31.0) mmol/L Anion Gap BUN (7-18) mg/dL Creatinine (0.6-1.3) mg/dL Est Cr Clr Drug Dosing mL/min Estimated GFR (MDRD) BUN/Creatinine Ratio Glucose (74-105) mg/dL POC Glucose (83-110) mg/dl Lactic Acid 3.5 H (0.5-2.2) mmol/L Calcium (8.4-10.2) mg/dl Total Bilirubin (0.2-1.0) mg/dL AST (10-42) IU/L ALT (10-60) IU/L Alkaline Phosphatase (42-121) IU/L B-Natriuretic Peptide (0-100) pg/ml Total Protein (6.7-8.2) g/dl Albumin (3.2-5.5) g/dl Globulin Albumin/Globulin Ratio Meds: Medications Discontinued Medications Generic Name Dose Route Start Last Admin Trade Name Adeel PRN Reason Stop Dose Admin Furosemide 20 mg 07/09/19 07:10 07/09/19 07:13 Lasix IVPUSH 07/09/19 07:11 Not Given ONETIME ONE Furosemide Confirm 07/09/19 07:09 07/09/19 07:23 Lasix Administered 07/09/19 07:10 20 mg Dose Administration 40 mg .ROUTE .STK-MED ONE Potassium Chloride 20 meq/ 100 mls @ 50 mls/hr 07/09/19 07:22 07/09/19 07:25 Premix IV 07/09/19 09:21 Not Given ONETIME ONE Potassium Chloride Confirm 07/09/19 07:21 07/09/19 07:25 Kcl 10 Meq In Water 100 Ml Administered 07/09/19 07:22 100 mls/hr Dose Administration 100 mls @ as directed .ROUTE .STK-MED ONE Dopamine HCl/Dextrose Confirm 07/09/19 07:37 07/09/19 08:21 Dopamine In D5w 400 Mg/250 Ml Administered 07/09/19 07:38 Not Given Dose 400 mg in 250 mls @ as directed .ROUTE .STK-MED ONE Norepinephrine Bitartrate Confirm 07/09/19 07:59 07/09/19 08:21 Levophed Administered 07/09/19 08:00 Not Given Dose 4 mg .ROUTE .STK-MED ONE Norepinephrine Bitartrate Confirm 07/09/19 08:00 07/09/19 08:21 Levophed Administered 07/09/19 08:01 Not Given Dose 4 mg .ROUTE .STK-MED ONE - Radiology Interpretation Free Text/Narrative:: Pulmonary edema; likely cardiogenic. ET tube 4.3 cm above omarya. - Re-Assessments/Exams Free Text/Narrative Re-Assessment/Exam: 07/09/19 11:54 Discussed impending respiratory arrest with need to intubate with family. Son and daughter not aware of her Advanced Directives; but would like everything done for now. 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 Lethargic and increase work of breathing with rales clare. WBC elevated 23 with Lactic acid 3.5. k+ 3.9, creat nml, glucose 293. BNP 3260 Bipap placed while setting up for intubation. Lasix 40 mg IV with 10 meq K+ rider given. Intubated successful and VSS remained stable. Placed on versed drip for ambulance ride to [facility]. Placed on portable vent and transferred with acceptance by Dr. Kyle Steam Cleaning Machine Operator [facility] 07/09/19 12:03 07/09/19 12:06 Departure - Departure Time of Disposition: 08:08 Disposition: DC/Tfer to [facility] 02 Condition: Serious (Intubated and versed drip) Clinical Impression: CHF (congestive heart failure) Qualifiers: Heart failure type: unspecified Heart failure chronicity: acute Qualified Code( s): I50.9 - Heart failure, unspecified Pulmonary edema Qualifiers: Chronicity: acute Qualified Code(s): J81.0 - Acute pulmonary edema Leukocytosis Qualifiers: Leukocytosis type: unspecified Qualified Code(s): D72.829 - Elevated white blood cell count, unspecified Respiratory failure Qualifiers: Chronicity: acute Respiratory failure complication: hypercapnia Qualified Code( s): J96.02 - Acute respiratory failure with hypercapnia - Discharge Information *PRESCRIPTION DRUG MONITORING PROGRAM REVIEWED*: Not Applicable *COPY OF PRESCRIPTION DRUG MONITORING REPORT IN PATIENT ERWIN: Not Applicable Referrals: PCP,None [Primary Care Provider] - Forms: ED Department Discharge, Interfacility Transfer INOCENCIA Huber Orders Last 24 Hours: My Active Orders 07/09/19 06:58 EKG Documentation Completion [RC] STAT - Assessment/Plan Last 24 Hours: My Active Orders 07/09/19 06:58 EKG Documentation Completion [RC] STAT I have read and agree with the documentation that has been completed regarding this visit. By signing this record, I attest that the documentation was completed in my physical presence and is an accurate record of the encounter.
== END 2019-07-09 08:08 ==
LOC: DL.ED 06:54
DX: I11.0 Hypertensive heart disease with heart failure (principal); I50.9 Heart failure, unspecified; J18.0 Bronchopneumonia, unspecified organism; J96.02 Acute respiratory failure with hypercapnia; D72.829 Elevated white blood cell count, unspecified; E11.9 Type 2 diabetes mellitus without complications; K21.9 Gastro-esophageal reflux disease without esophagitis; M19.90 Unspecified osteoarthritis, unspecified site; E78.00 Pure hypercholesterolemia, unspecified; Z88.1 Allergy status to other antibiotic agents; Z88.5 Allergy status to narcotic agent; Z88.8 Allergy status to other drugs, medicaments and biological substances; Z79.899 Other long term (current) drug therapy; Z79.82 Long term (current) use of aspirin; Z79.84 Long term (current) use of oral hypoglycemic drugs
CPT/HCPCS: 31500; 36415; 43752; 71045; 80053; 82803; 82962; 83605; 83880; 85025; 87040; 93005; 96365; 96375; 99285; J1940; J2250; J3480; J3490; J7050; 51702

== ENCOUNTER 2019-08-14 07:56 | Emergency (ER) | payer MEDICARE, BC ==
[~2019-08-14 07:56] MED LIST: Sodium Chloride 0.9% 10 ML Syringe FLUSH PRN
--- NOTE | 2019-08-14 08:19 | EDM.PDOC ---
ED HPI GENERAL MEDICAL PROBLEM - General Chief Complaint: Respiratory Problem Stated Complaint: AMBULANCE Time Seen by Provider: 08/14/19 07:56 Source of Information: Reports: Patient, EMS, EMS Notes Reviewed, Family, RN, RN Notes Reviewed History Limitations: Reports: Respiratory Distress - History of Present Illness INITIAL COMMENTS - FREE TEXT/NARRATIVE: patient to the ER per ALS with complaint of sudden onset shortness of breath. Patient denies any recent illness, fever, chills, N/V/D, cough, chest pain. Patient admits to history of COPD and CHF, pacemaker. Patient states she got up to the bathroom today was having a bowel movement and became very short of breath. On July 09 patient was brought to the ER by ambulance, was intubated at that time and transferred to [place]. Upon arrival to the ER today patient was on nonrebreather at 15 L sats were 100%. Patient switched over to nasal cannula at 4 L and is now 91-92%. When asked if she would like CPR intubation patient requests DNR/DNI. Onset: Today, Sudden - Related Data Allergies Allergy/AdvReac Type Severity Reaction Status Date / Time amoxicillin Allergy Hives Verified 08/14/19 07:56 ezetimibe Allergy Cannot Verified 08/14/19 07:56 Remember morphine Allergy Confusion Verified 08/14/19 07:56 moxifloxacin Allergy Cannot Verified 08/14/19 07:56 Remember naproxen [From Aleve] Allergy Cannot Verified 08/14/19 07:56 Remember Ceaoaes-Xhz-Buu Reductase Allergy Muscle Verified 08/14/19 07:56 Inhibitor Aches sulindac Allergy Cannot Verified 08/14/19 07:56 Remember Tetracyclines Allergy Cannot Verified 08/14/19 07:56 Remember Home Meds: Home Meds Fenofibrate 160 mg PO .1800 04/20/15 [History] Metoprolol Succinate [Toprol XL] 100 mg PO DAILY 04/20/15 [History] metFORMIN [Glucophage] 1,000 mg PO BIDMEALS 04/20/15 [History] Clopidogrel [Plavix] 75 mg PO .1800 03/24/16 [History] Pantoprazole [ProTONIX] 40 mg PO DAILY PRN 03/24/16 [History] Aspirin 325 mg PO DAILY 03/25/16 [History] cloNIDine [Catapres] 0.1 mg PO BID 02/10/17 [History] oxyCODONE HCl/Acetaminophen [Percocet 7.5-325 mg Tablet] 1 tab PO Q8HR PRN 03/30 [History] Cholecalciferol (Vitamin D3) [Vitamin D3] 1,000 unit PO BEDTIME 07/25/18 [ History] [place]-3/DHA/Epa/Fish Oil [[place] 3 500 Softgel] 1,000 mg PO BID 07/25/18 [History ] Calcium Citrate/Vitamin D3 [Citracal + D Maximum Caplet] 1 each PO .1800 [History] Magnesium Oxide [Magnesium] 400 mg PO DAILY 03/02/19 [History] Acetaminophen [Tylenol] 650 mg PO Q4H PRN #30 tablet 03/07/19 [Rx] Furosemide [Lasix] 20 mg PO Q48H 30 Days #15 tablet 03/07/19 [Rx] Menthol/Methyl Salicylate [Icy Hot] 1 gm TOP QID PRN #1 tube 03/07/19 [Rx] Past Medical History - Past Health History Medical/Surgical History: Denies Medical/Surgical History HEENT History: Reports: Impaired Vision Other HEENT History: wears glasses, is leaglly blind Cardiovascular History: Reports: Afib, Heart Failure, High Cholesterol, Hypertension, Pacemaker, Other (See Below) Other Cardiovascular History: pauses in heart beat Respiratory History: Reports: COPD, SOB, Other (See Below) Other Respiratory History: recent intubation Gastrointestinal History: Reports: GERD Genitourinary History: Reports: Urinary Incontinence Other Genitourinary History: 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: Musculoskeletal History: Reports: Back Pain, Chronic, Osteoarthritis, Other ( See Below) Other Musculoskeletal History: degenerative disc disease Neurological History: Reports: Headaches, Chronic, Other (See Below) Other Neuro History: cva in 2010 Psychiatric History: Reports: None Endocrine/Metabolic History: Reports: Diabetes, Type II Hematologic History: Reports: None Immunologic History: Reports: None Oncologic (Cancer) History: Reports: None Dermatologic History: Reports: None - Infectious Disease History Infectious Disease History: Reports: Chicken Pox, Measles, Mumps - Past Surgical History Head Surgeries/Procedures: Reports: None Cardiovascular Surgical History: Reports: Pacer Other GI Surgeries/Procedures: 3 feet bowel out, Other Female Surgeries/Procedures: Bladder surgery Social & Family History - Family History Family Medical History: Noncontributory - Tobacco Use Smoking Status *Q: Never Smoker Second Hand Smoke Exposure: No - Caffeine Use Caffeine Use: Reports: Coffee - Recreational Drug Use Recreational Drug Use: No - Living Situation & Occupation Living situation: Reports: , Alone Occupation: Retired ED ROS GENERAL - Review of Systems Review Of Systems: ROS reveals no pertinent complaints other than HPI. ED EXAM, GENERAL - Physical Exam Exam: See Below Exam Limited By: No Limitations General Appearance: Alert, WD/WN, Anxious, Moderate Distress Eye Exam: Bilateral Eye: EOMI, Normal Inspection Ears: Normal External Exam, Hearing Grossly Normal Nose: Normal Inspection Throat/Mouth: Normal Inspection, Normal Voice, No Airway Compromise Head: Atraumatic, Normocephalic Neck: Normal Inspection, Supple, Non-Tender, Limited Range of Motion Respiratory/Chest: No Accessory Muscle Use, Chest Non-Tender, Decreased Breath Sounds, Crackles (right base) Cardiovascular: Normal Peripheral Pulses, Regular Rate, Rhythm, No Edema, No Gallop, No JVD, No Murmur, No Rub, Tachycardia Peripheral Pulses: 2+: Radial (L), Radial (R) GI/Abdominal: Normal Bowel Sounds, Soft, Non-Tender, No Organomegaly, No Distention, No Abnormal Bruit, No Mass, Pelvis Stable (Female) Exam: Deferred Rectal (Female) Exam: Deferred Back Exam: Normal Inspection, Decreased Range of Motion Extremities: Normal Inspection, Non-Tender, No Pedal Edema, Normal Capillary Refill, Limited Range of Motion Neurological: Alert, Oriented, CN II-XII Intact, Normal Cognition, Normal Gait, Normal Reflexes, No Motor/Sensory Deficits Psychiatric: Normal Affect, Normal Mood, Anxious Skin Exam: Warm, Dry, Intact, Normal Color, No Rash, Pallor Lymphatic: No Adenopathy Course - Vital Signs Last Recorded V/S: Last Vital Signs Temp 98.8 F 08/14/19 10:37 Pulse 92 08/14/19 10:37 Resp 22 H 08/14/19 10:37 BP 160/61 H 08/14/19 10:37 Pulse Ox 91 L 08/14/19 10:37 - Orders/Labs/Meds Orders: Active Orders 24 hr Category Date Time Status EKG Documentation Completion [RC] STAT Care 08/14/19 07:39 Active Peripheral IV Care [RC] . DIRECTED Care 08/14/19 07:41 Active CULTURE BLOOD [BC] Stat Lab 08/14/19 07:56 Received UA RFX MICHAEL AND CULT IF INDIC [URIN] Stat Lab 08/14/19 07:40 Ordered Heparin Sodium/0.45% NaCl [Heparin 25,000 Units in 1/2 Med 08/14/19 10:45 Active NS 500 ML] 25,000 units in 500 ml IV TITRATE Sodium Chloride 0.9% [Saline Flush] Med 08/14/19 07:39 Active 10 ml FLUSH ASDIRECTED PRN Blood Culture x2 Reflex Set [OM.PC] Stat Oth 08/14/19 07:41 Ordered Peripheral IV Insertion Adult [OM.PC] Stat Oth 08/14/19 07:39 Ordered Medication Orders Heparin Sodium/Sodium Chloride (Heparin 25,000 Units In 1/2 Ns 500 Ml) 25,000 units in 500 mls @ 25.344 mls/hr IV TITRATE DREA; Protocol Last Admin: 08/14/19 10:55 Dose: 18 units/kg/hr, 25.344 mls/hr Sodium Chloride (Saline Flush) 10 ml FLUSH ASDIRECTED PRN PRN Reason: Keep Vein Open Last Admin: 08/14/19 08:38 Dose: 10 ml Labs: Laboratory Tests 08/14/19 08/14/19 08/14/19 Range/Units 07:56 07:56 07:56 WBC 9.8 (5.0-10.0) 10^3/uL RBC 4.37 (4.2-5.4) 10^6/uL Hgb 9.7 L (12.0-16.0) g/dL Hct 32.1 L (37.0-47.0) % MCV 73.5 L (80-100) fL MCH 22.2 L (27.0-34.0) pg MCHC 30.2 L (33.0-35.0) g/dL Plt Count 347 D (150-450) 10^3/uL Neut % (Auto) 71.4 (42.2-75.2) % Lymph % (Auto) 17.1 L (20.5-50.1) % Webb % (Auto) 4.8 (2-8) % Eos % (Auto) 6.1 H (1.0-3.0) % Baso % (Auto) 0.6 (0.0-1.0) % D-Dimer, Quantitative 1260 H (0-400) ng/mL ABG pH (7.35-7.45) ABG pCO2 (35-45) mmHg ABG pO2 (70-100) mmHg ABG HCO3 (22-26) mmol/L ABG O2 Saturation (95-100) % ABG Base Excess ((-2)-(+3)) mmol/L Camilo Test O2 Delivery Device Oxygen Flow Rate Sodium 139 (135-145) mmol/L Potassium 3.4 L (3.6-5.0) mmol/L Chloride 104 (101-111) mmol/L Carbon Dioxide 27.0 (21.0-31.0) mmol/L Anion Gap 11.4 BUN 24 H (7-18) mg/dL Creatinine 0.8 (0.6-1.3) mg/dL Est Cr Clr Drug Dosing 44.58 mL/min Estimated GFR (MDRD) > 60 BUN/Creatinine Ratio 30.00 Glucose 206 H (74-105) mg/dL Lactic Acid (0.5-2.2) mmol/L Calcium 9.5 (8.4-10.2) mg/dl Total Bilirubin 0.8 (0.2-1.0) mg/dL AST 26 (10-42) IU/L ALT 19 (10-60) IU/L Alkaline Phosphatase 37 L (42-121) IU/L Troponin I 0.02 (0.00-0.02) ng/ml B-Natriuretic Peptide 691 H (0-100) pg/ml Total Protein 7.0 (6.7-8.2) g/dl Albumin 3.9 (3.2-5.5) g/dl Globulin 3.1 Albumin/Globulin Ratio 1.26 08/14/19 08/14/19 Range/Units 07:56 08:20 WBC (5.0-10.0) 10^3/uL RBC (4.2-5.4) 10^6/uL Hgb (12.0-16.0) g/dL Hct (37.0-47.0) % MCV (80-100) fL MCH (27.0-34.0) pg MCHC (33.0-35.0) g/dL Plt Count (150-450) 10^3/uL Neut % (Auto) (42.2-75.2) % Lymph % (Auto) (20.5-50.1) % Webb % (Auto) (2-8) % Eos % (Auto) (1.0-3.0) % Baso % (Auto) (0.0-1.0) % D-Dimer, Quantitative (0-400) ng/mL ABG pH 7.44 (7.35-7.45) ABG pCO2 38 (35-45) mmHg ABG pO2 74 (70-100) mmHg ABG HCO3 25.1 (22-26) mmol/L ABG O2 Saturation 94 L (95-100) % ABG Base Excess 2 ((-2)-(+3)) mmol/L Camilo Test pos O2 Delivery Device Non rebr mask Oxygen Flow Rate 4 Sodium (135-145) mmol/L Potassium (3.6-5.0) mmol/L Chloride (101-111) mmol/L Carbon Dioxide (21.0-31.0) mmol/L Anion Gap BUN (7-18) mg/dL Creatinine (0.6-1.3) mg/dL Est Cr Clr Drug Dosing mL/min Estimated GFR (MDRD) BUN/Creatinine Ratio Glucose (74-105) mg/dL Lactic Acid 1.3 (0.5-2.2) mmol/L Calcium (8.4-10.2) mg/dl Total Bilirubin (0.2-1.0) mg/dL AST (10-42) IU/L ALT (10-60) IU/L Alkaline Phosphatase (42-121) IU/L Troponin I (0.00-0.02) ng/ml B-Natriuretic Peptide (0-100) pg/ml Total Protein (6.7-8.2) g/dl Albumin (3.2-5.5) g/dl Globulin Albumin/Globulin Ratio Meds: Medications Generic Name Dose Route Start Last Admin Trade Name Freq PRN Reason Stop Dose Admin Heparin Sodium/Sodium Chloride 25,000 units in 500 mls @ 25.344 mls/hr 10:45 08/14/19 10:55 Heparin 25,000 Units In 1/2 Ns 500 Ml IV 18 units/kg/hr TITRATE DREA 25.344 mls/hr Administration Protocol 18 UNITS/KG/HR Sodium Chloride 10 ml 08/14/19 07:39 08/14/19 08:38 Saline Flush FLUSH 10 ml ASDIRECTED PRN Administration Keep Vein Open Discontinued Medications Generic Name Dose Route Start Last Admin Trade Name Anjumq PRN Reason Stop Dose Admin Furosemide 80 mg 08/14/19 08:48 08/14/19 09:09 Lasix IVPUSH 08/14/19 08:49 80 mg NOW ONE Administration Heparin Sodium (Porcine) 4,000 units 08/14/19 10:37 08/14/19 10:55 Heparin Sodium IVPUSH 08/14/19 10:38 4,000 units .BOLUS ONE Administration Iopamidol 100 ml 08/14/19 08:40 08/14/19 10:14 [id number] (76%) IVPUSH 08/14/19 08:41 85 ml ONETIME ONE Administration - Radiology Interpretation Free Text/Narrative:: Chest xray: FINDINGS: Tubes, catheters and devices: A pacemaker device is present, and its leads are in appropriate position. Lungs: There is mild perihilar interstitial prominence consistent with volume overload or early congestive heart failure. Patchy airspace disease at the right lung base may represent superimposed pneumonia. Pleural space: There are bilateral small pleural effusions blunting the costophrenic angles. Heart/Mediastinum: Unremarkable. No cardiomegaly. Bones/joints: Unremarkable. IMPRESSION: 1. There is mild perihilar interstitial prominence consistent with volume overload or early congestive heart failure. 2. Patchy airspace disease at the right lung base may represent superimposed pneumonia. Thank you for allowing us to participate in the care of your patient. Dictated and Authenticated by: Gino Vasquez MD 08/14/2019 8:05 AM Central Time ([place] & [place]) Chest CT with contrast: FINDINGS: Limitations: Motion artifact does moderately limit the sensitivity of this examination. Tubes, catheters and devices: A pacemaker device is present, and its leads are in appropriate position. Lungs: There is mild perihilar interstitial prominence consistent with volume overload or early congestive heart failure. Minimal groundglass airspace disease within the lower lung [place]. Pleural space: Bilateral small pleural effusions. Heart: Unremarkable. No cardiomegaly. No pericardial effusion. There is no flattening of the interventricular septum, paradoxical interventricular septum bowing, or right ventricular enlargement to suggest right ventricular strain. Mediastinum: Small hiatal hernia. Pulmonary arteries: Right lower lobe pulmonary artery filling defect worrisome for pulmonary embolus seen best on coronal image #64. Aorta: There is eccentric thrombus within the upper abdominal aorta. Possible 6 mm ulceration within the thrombus. Lymph nodes: Unremarkable. No enlarged lymph nodes. Adrenals: 1.7 cm left adrenal nodule and 2.2 cm right adrenal mass. Bones/joints: There is multilevel degenerative disc disease. Soft tissues: Unremarkable. IMPRESSION: 1. There is eccentric thrombus within the upper abdominal aorta. Possible 6 mm ulceration within the thrombus. 2. Bilateral small pleural effusions. 3. There is mild perihilar interstitial prominence consistent with volume overload or early congestive heart failure. 4. Minimal groundglass airspace disease within the lower lung [place]. 5. Right lower lobe pulmonary artery filling defect worrisome for pulmonary embolus seen best on coronal image #64. Thank you for allowing us to participate in the care of your patient. Dictated and Authenticated by: Gino Vasquez MD 08/14/2019 10:29 AM Central Time ([place]) See rad report - Re-Assessments/Exams Free Text/Narrative Re-Assessment/Exam: 08/14/19 11:15 Discussed patient case with Dr. Villalobos who agreed to accept the patient for transfer to [facility]. Departure - Departure Time of Disposition: 11:15 Disposition: DC/Tfer to Acute Hospital 02 Condition: Fair, Serious Clinical Impression: Abdominal aorta thrombosis Pulmonary emboli Qualifiers: Pulmonary embolism type: unspecified Chronicity: acute Acute cor pulmonale presence: unspecified Qualified Code(s): I26.99 - Other pulmonary embolism without acute cor pulmonale CHF (congestive heart failure) Qualifiers: Heart failure type: unspecified Heart failure chronicity: acute Qualified Code( s): I50.9 - Heart failure, unspecified COPD (chronic obstructive pulmonary disease) Qualifiers: COPD type: unspecified COPD Qualified Code(s): J44.9 - Chronic obstructive pulmonary disease, unspecified - Discharge Information *PRESCRIPTION DRUG MONITORING PROGRAM REVIEWED*: No *COPY OF PRESCRIPTION DRUG MONITORING REPORT IN PATIENT ERWIN: No Forms: ED Department Discharge, Interfacility Transfer EMTALA - My Orders Last 24 Hours: My Active Orders 08/14/19 07:39 EKG Documentation Completion [RC] STAT Sodium Chloride 0.9% [Saline Flush] 10 ml FLUSH ASDIRECTED PRN Peripheral IV Insertion Adult [OM.PC] Stat 08/14/19 07:40 UA RFX MICHAEL AND CULT IF INDIC [URIN] Stat 08/14/19 07:41 Peripheral IV Care [RC] . DIRECTED Blood Culture x2 Reflex Set [OM.PC] Stat 08/14/19 07:56 CULTURE BLOOD [BC] Stat 08/14/19 10:45 Heparin Sodium/0.45% NaCl [Heparin 25,000 Units in 1/2 NS 500 ML] 25,000 units in 500 ml IV TITRATE - Assessment/Plan Last 24 Hours: My Active Orders 08/14/19 07:39 EKG Documentation Completion [RC] STAT Sodium Chloride 0.9% [Saline Flush] 10 ml FLUSH ASDIRECTED PRN Peripheral IV Insertion Adult [OM.PC] Stat 08/14/19 07:40 UA RFX MICHAEL AND CULT IF INDIC [URIN] Stat 08/14/19 07:41 Peripheral IV Care [RC] . DIRECTED Blood Culture x2 Reflex Set [OM.PC] Stat 08/14/19 07:56 CULTURE BLOOD [BC] Stat 08/14/19 10:45 Heparin Sodium/0.45% NaCl [Heparin 25,000 Units in 1/2 NS 500 ML] 25,000 units in 500 ml IV TITRATE
[2019-08-14 08:20] LABS: BASE EXCESS ARTERIAL 2 mmol/L ((-2)-(+3)); BICARBONATE,ARTERIAL 25.1 mmol/L (22-26); O2 DELIVERY DEVICE NON REBR MASK; O2 SATURATION ARTERIAL 94 % (95-100); PCO2 ARTERIAL 38 mmHg (35-45); PO2 ARTERIAL 74 mmHg (70-100)
[2019-08-14 08:23] LABS: ANION GAP 11.4; CHLORIDE,CL 104 mmol/L (101-111); SODIUM,NA 139 mmol/L (135-145)
[2019-08-14 08:25] LABS: ALLEN TEST pos; O2 FLOW RATE 4
[2019-08-14] MEDS ORDERED: Iopamidol 755 Mg/ML 100 ML Bottle IVPUSH ONE (08:40)
[2019-08-14] MEDS ORDERED: Furosemide 40 MG/4 ML VIAL IVPUSH ONE (08:48)
[2019-08-14] MEDS ORDERED: Heparin Sodium 5,000 Units/ML Vial IVPUSH ONE (10:37)
[2019-08-14 10:38] VITALS: BP 160/61; PULSE 92
[2019-08-14] MEDS ORDERED: Heparin Sodium/0.45% NaCl 25,000 UNITS/500 ML BAG IV SCH (10:45)
== END 2019-08-14 13:02 ==
LOC: DL.ED 07:56
DX: I74.09 Other arterial embolism and thrombosis of abdominal aorta (principal); I26.99 Other pulmonary embolism without acute cor pulmonale; I11.0 Hypertensive heart disease with heart failure; I50.9 Heart failure, unspecified; K21.9 Gastro-esophageal reflux disease without esophagitis; I48.91 Unspecified atrial fibrillation; J44.9 Chronic obstructive pulmonary disease, unspecified; E11.9 Type 2 diabetes mellitus without complications; Z88.1 Allergy status to other antibiotic agents; Z88.5 Allergy status to narcotic agent; Z88.6 Allergy status to analgesic agent; Z88.0 Allergy status to penicillin; Z88.8 Allergy status to other drugs, medicaments and biological substances; Z79.82 Long term (current) use of aspirin; Z79.899 Other long term (current) drug therapy; Z79.01 Long term (current) use of anticoagulants; Z79.84 Long term (current) use of oral hypoglycemic drugs
CPT/HCPCS: 36415; 36600; 71045; 71260; 80053; 82803; 83605; 83880; 84484; 85025; 85379; 87040; 93005; 96365; 96366; 96375; 99285; J1644; J1940; Q9967

== ENCOUNTER 2019-08-23 09:12 | Inpatient (IN) | payer MEDICARE, BC ==
[2019-08-23] MEDS ORDERED: Pantoprazole 40 MG Tab.CR PO PRN (13:19)
[2019-08-23] MEDS ORDERED: Albuterol/Ipratropium 3.0-0.5 MG/3 ML Neb Soln NEB PRN (13:19)
[2019-08-23] MEDS ORDERED: Albuterol 6.7 GM Inhaler INH PRN (13:19)
[2019-08-23] MEDS ORDERED: ACETAMINOPHEN PO PRN (13:19)
[2019-08-23] MEDS ORDERED: OXYCODONE PO PRN (13:19)
--- NOTE | 2019-08-23 13:30 | PCM.HP ---
H&P History of Present Illness - General Date of Service: 08/23/19 Admit Problem/Dx: Admission Diagnosis/Problem Admission Diagnosis/Problem Physical deconditioning Source of Information: Patient History Limitations: Reports: No Limitations - History of Present Illness Initial Comments - Free Text/Narative: Saba Mckeon a 88 y.o.F with PMH of HFpEF COPD, Dm, TIA. She was admitted to [facility] with SOB following transfer from [place] ED for SOB. CT chest with PE protocol showed eccentric thrombus within the upper abdominal aorta, possible 6 mm ulceration within thrombus and right lower lobe pulmonary artery filling defect worrisome for pulmonary embolism. Patient received anticoagulant wit improvement. She was started on NOAC but switched to Coumadin at patient request. She was physically deconditioned following hospitalization and discharged to [facility] bed to continue PT/OT for strengthening. At bedside evaluation she was seen sitting up in chair in no distress. She denies any complaint. Daughter by bedside who says she is just generally weak. No chest pain, SOB. Improves with: Reports: None Worsens with: Reports: None Associated Symptoms: Reports: No Other Symptoms - Related Data Allergies/Adverse Reactions: Allergies Allergy/AdvReac Type Severity Reaction Status Date / Time amoxicillin Allergy Hives Verified 08/14/19 07:56 ezetimibe Allergy Cannot Verified 08/14/19 07:56 Remember morphine Allergy Confusion Verified 08/14/19 07:56 moxifloxacin Allergy Cannot Verified 08/14/19 07:56 Remember naproxen [From Aleve] Allergy Cannot Verified 08/14/19 07:56 Remember Hydcigy-Nyj-Cpg Reductase Allergy Muscle Verified 08/14/19 07:56 Inhibitor Aches sulindac Allergy Cannot Verified 08/14/19 07:56 Remember Tetracyclines Allergy Cannot Verified 08/14/19 07:56 Remember Home Medications: Home Meds Fenofibrate 160 mg PO .1800 04/20/15 [History] Metoprolol Succinate [Toprol XL] 100 mg PO DAILY 04/20/15 [History] metFORMIN [Glucophage] 1,000 mg PO BIDMEALS 04/20/15 [History] Pantoprazole [ProTONIX] 40 mg PO DAILY PRN 03/24/16 [History] cloNIDine [Catapres] 0.2 mg PO BID 02/10/17 [History] oxyCODONE HCl/Acetaminophen [Percocet 7.5-325 mg Tablet] 1 tab PO Q8HR PRN 03/30 [History] Cholecalciferol (Vitamin D3) [Vitamin D3] 2,000 unit PO BEDTIME 07/25/18 [ History] Calcium Citrate/Vitamin D3 [Citracal + D Maximum Caplet] 1 each PO .1800 [History] Furosemide [Lasix] 20 mg PO Q48H 30 Days #15 tablet 03/07/19 [Rx] Albuterol [Proventil HFA] 2 puff INH Q4H PRN 08/23/19 [History] Albuterol/Ipratropium [DuoNeb 3.0-0.5 MG/3 ML] 3 ml .XX Q4H PRN 08/23/19 [ History] Aspirin [Adult Low Dose Aspirin EC] 81 mg PO DAILY 08/23/19 [History] Ciclopirox/Ure/Camph/Menth/Euc [Ciclopirox 8% Treatment Kit] 34.6 ml TP DAILY [History] Ferrous Sulfate 325 mg PO DAILY 08/23/19 [History] Folic Acid 1 mg PO DAILY 08/23/19 [History] Magnesium Citrate 100 mg PO DAILY 08/23/19 [History] [place]-3 Acid Ethyl Esters [Lovaza] 2 gm PO BID 08/23/19 [History] Propylene Glycol/Peg 400 [Systane 0.3-0.4% Eye Drops] 1 drop EYEBOTH BID [History] Warfarin [Coumadin] 5 mg PO DAILY 08/23/19 [History] amLODIPine [Norvasc] 10 mg PO DAILY 08/23/19 [History] hydroCHLOROthiazide [Hydrochlorothiazide] 25 mg PO DAILY 08/23/19 [History] Past Medical History - Past Health History Medical/Surgical History: Denies Medical/Surgical History HEENT History: Reports: Impaired Vision Other HEENT History: wears glasses, is leaglly blind Cardiovascular History: Reports: Afib, Heart Failure, High Cholesterol, Hypertension, Pacemaker, Other (See Below) Other Cardiovascular History: pauses in heart beat Respiratory History: Reports: COPD, SOB, Other (See Below) Other Respiratory History: recent intubation Gastrointestinal History: Reports: GERD Genitourinary History: Reports: Urinary Incontinence Other Genitourinary History: wears protection [employer] History: Reports: Musculoskeletal History: Reports: Back Pain, Chronic, Osteoarthritis, Other ( See Below) Other Musculoskeletal History: degenerative disc disease Neurological History: Reports: Headaches, Chronic, Other (See Below) Other Neuro History: cva in 2010 Psychiatric History: Reports: None Endocrine/Metabolic History: Reports: Diabetes, Type II Hematologic History: Reports: None Immunologic History: Reports: None Oncologic (Cancer) History: Reports: None Dermatologic History: Reports: None - Infectious Disease History Infectious Disease History: Reports: Chicken Pox, Measles, Mumps - Past Surgical History Head Surgeries/Procedures: Reports: None Cardiovascular Surgical History: Reports: Pacer Other GI Surgeries/Procedures: 3 feet bowel out, Other Female Surgeries/Procedures: Bladder surgery Social & Family History - Family History Family Medical History: Noncontributory - Caffeine Use Caffeine Use: Reports: Coffee - Living Situation & Occupation Living situation: Reports: , Alone Occupation: Retired H&P Review of Systems - Review of Systems: Review Of Systems: See Below General: Reports: No Symptoms HEENT: Reports: No Symptoms Pulmonary: Reports: No Symptoms Cardiovascular: Reports: No Symptoms Gastrointestinal: Reports: No Symptoms Genitourinary: Reports: No Symptoms Musculoskeletal: Reports: No Symptoms Skin: Reports: No Symptoms Psychiatric: Reports: No Symptoms Neurological: Reports: No Symptoms Hematologic/Lymphatic: Reports: No Symptoms Immunologic: Reports: No Symptoms Exam - Exam Exam: See Below () - Exam General: Alert, Oriented, 4 HEENT: PERRLA, Hearing Intact, Mucosa Moist & [place], Nares Patent, Normal Nasal Septum, Posterior Pharynx Clear, Conjunctiva Clear, EOMI, EACs Clear, TMs Clear Neck: Supple, Trachea Midline, 2 Lungs: Clear to Auscultation, Normal Respiratory Effort Cardiovascular: Regular Rate, Regular Rhythm GI/Abdominal Exam: Normal Bowel Sounds, Soft, Non-Tender, No Organomegaly, No Distention, No Abnormal Bruit, No Mass, Pelvis Stable (Female) Exam: Normal External Exam, Normal Speculum Exam, Normal Bimanual Exam Rectal (Female) Exam: Normal Exam, Normal Rectal Tone Back Exam: Normal Inspection, Full Range of Motion, NT Extremities: Normal Inspection, Normal Range of Motion, Non-Tender, No Pedal Edema, Normal Capillary Refill Skin: Warm, Dry, Intact Neurological: Cranial Nerves Intact, Reflexes Equal Bilateral Neuro Extensive - Mental Status: Alert, Oriented x3, Normal Mood/Affect, Normal Cognition Neuro Extensive - Motor, Sensory, Reflexes: CN II-XII Intact, Normal Gait, Normal Reflexes Psychiatric: Alert, Normal Affect, Normal Mood *Q Meaningful Use (ADM) - VTE *Q VTE Anticoagulation Contraindications: Medical/Procedure Contrai - Problem List (1) Pulmonary embolism SNOMED Code(s): 08776862 ICD Code: I26.99 - OTHER PULMONARY EMBOLISM WITHOUT ACUTE COR PULMONALE Status: Acute Current Visit: Yes (2) Abdominal aorta thrombosis SNOMED Code(s): 66801687 ICD Code: I74.09 - OTHER ARTERIAL EMBOLISM AND THROMBOSIS OF ABDOMINAL AORTA Status: Acute Current Visit: No (3) Anticoagulated on Coumadin SNOMED Code(s): 02528610 ICD Code: Z79.01 - HIGH SCHOOL ADMISSIONS REPRESENTATIVE (CURRENT) USE OF ANTICOAGULANTS Status: Acute Current Visit: No (4) Bronchitis SNOMED Code(s): 32224040 ICD Code: J40 - BRONCHITIS, NOT SPECIFIED ACUTE OR CHRONIC Status: Acute Current Visit: No Problem List Initiated/Reviewed/Updated: Yes Orders Last 24hrs: Active Orders 24 hr Category Date Time Status Patient Status [ADT] Routine ADT 08/23/19 13:12 Ordered Ambulate [RC] ASDIRECTED Care 08/23/19 13:12 Ordered Blood Glucose Check, Bedside [RC] QIDACANDBED Care 08/23/19 13:12 Ordered Notify Provider Vital Signs [RC] ASDIRECTED Care 08/23/19 13:13 Ordered Oxygen Therapy [RC] PRN Care 08/23/19 13:12 Ordered Pulse Oximetry [RC] PRN Care 08/23/19 13:13 Ordered VTE/DVT Education [RC] PER UNIT ROUTINE Care 08/23/19 13:12 Ordered Vital Signs [RC] Q4H Care 08/23/19 13:12 Ordered OT Evaluation and Treatment [CONS] Routine Cons 08/23/19 13:12 Ordered PT Evaluation and Treatment [CONS] Routine Cons 08/23/19 13:12 Ordered Respiratory Care Assess and Treatment [CONS] Routine Cons 08/23/19 13:12 Ordered Regular Diet [DIET] Diet 08/23/19 Dinner Ordered Albuterol [Proventil HFA] Med 08/23/19 13:19 Ordered 2 puff INH Q4H PRN Albuterol/Ipratropium [DuoNeb 3.0-0.5 MG/3 ML] Med 08/23/19 13:19 Ordered 3 ml .XX Q4H PRN Aspirin [Halfprin] Med 08/24/19 09:00 Ordered 81 mg PO DAILY Calcium Citrate/Vitamin D3 [Citracal + D Maximum Caplet Med 08/23/19 13:30 Ordered ] 1 each PO .1800 Cholecalciferol (Vitamin D3) [Vitamin D3] Med 08/23/19 21:00 Ordered 2,000 unit PO BEDTIME Ciclopirox/Ure/Camph/Menth/Euc [Ciclopirox 8% Treatment Med 08/24/19 09:00 Ordered Kit] 34.6 ml TP DAILY Fenofibrate [Fenofibrate] Med 08/23/19 13:30 Ordered 160 mg PO .1800 Ferrous Sulfate Med 08/24/19 09:00 Ordered 325 mg PO DAILY Folic Acid Med 08/24/19 09:00 Ordered 1 mg PO DAILY Furosemide [Lasix] Med 08/23/19 13:30 Ordered 20 mg PO Q48H Magnesium Citrate [Magnesium Citrate] Med 08/24/19 09:00 Ordered 100 mg PO DAILY Metoprolol Succinate [Toprol XL] Med 08/24/19 09:00 Ordered 100 mg PO DAILY [place]-3 Acid Ethyl Esters [Lovaza] Med 08/23/19 21:00 Ordered 2 gm PO BID Pantoprazole [ProTONIX] Med 08/23/19 13:19 Ordered 40 mg PO DAILY PRN Propylene Glycol/Peg 400 [Systane 0.3-0.4% Eye Drops] Med 08/23/19 21:00 Ordered 1 drop EYEBOTH BID Warfarin [Coumadin] Med 08/24/19 09:00 Ordered 5 mg PO DAILY amLODIPine [Norvasc] Med 08/24/19 09:00 Ordered 10 mg PO DAILY cloNIDine [Catapres] Med 08/23/19 21:00 Ordered 0.2 mg PO BID hydroCHLOROthiazide Med 08/24/19 09:00 Ordered 25 mg PO DAILY metFORMIN [Glucophage] Med 08/23/19 18:00 Ordered 1,000 mg PO BIDMEALS oxyCODONE HCl/Acetaminophen Med 08/23/19 13:19 Ordered 1 tab PO Q8HR PRN Anticoagulation Contraindications VTE [AST] Per Unit Oth 11/05/19 13:12 Ordered Routine Resuscitation Status Routine Resus Stat 08/23/19 13:12 Ordered Medication Orders Albuterol (Proventil Hfa) gm INH Q4H PRN PRN Reason: Wheezing Albuterol/Ipratropium (Duoneb 3.0-0.5 Mg/3 Ml) 3 ml .XX Q4H PRN PRN Reason: Wheezing Amlodipine Besylate (Norvasc) 10 mg PO DAILY [facility] Aspirin (Halfprin) 81 mg PO DAILY [facility] Clonidine HCl (Catapres) 0.2 mg PO BID [facility] Ferrous Sulfate (Ferrous Sulfate) 325 mg PO DAILY [facility] Folic Acid (Folic Acid) 1 mg PO DAILY [facility] Furosemide (Lasix) 20 mg PO Q48H [facility] Hydrochlorothiazide (Hydrochlorothiazide) 25 mg PO DAILY [facility] Non-Formulary Medication (Calcium Citrate/Vitamin D3 [Citracal + D Maximum Caplet]) 1 each PO .1800 [facility] Non-Formulary Medication (Cholecalciferol (Vitamin D3) [Vitamin D3]) 2,000 unit PO BEDTIME [facility] Non-Formulary Medication (Ciclopirox/Ure/Camph/Menth/Euc [Ciclopirox 8% Treatment Kit]) 34.6 ml TP DAILY [facility] Non-Formulary Medication (Fenofibrate [Fenofibrate]) 160 mg PO .1800 [facility] Non-Formulary Medication (Magnesium Citrate [Magnesium Citrate]) 100 mg PO DAILY [facility] Non-Formulary Medication (Metformin [Glucophage]) 1,000 mg PO BIDMEALS [facility] Non-Formulary Medication (Metoprolol Succinate [Toprol Xl]) 100 mg PO DAILY [facility] Non-Formulary Medication ([place]-3 Acid Ethyl Esters [Lovaza]) 2 gm PO BID [facility] Non-Formulary Medication (Oxycodone Hcl/Acetaminophen) 1 tab PO Q8HR PRN PRN Reason: Pain Non-Formulary Medication (Propylene Glycol/Peg 400 [Systane 0.3-0.4% Eye Drops] ) 1 drop EYEBOTH BID [facility] Pantoprazole Sodium (Protonix) 40 mg PO DAILY PRN PRN Reason: reflux Warfarin Sodium (Coumadin) 5 mg PO DAILY [facility] Assessment/Plan Comment:: #Generalized debility following hospitalization -PT/OT #Pulmonary embolism -Continue Coumadin -Monitor INR #Abdominal aortic thrombus -Continue Coumadin #Chronic Anemia -Hgb stable #h/o COPD -Stable -Continue home meds #HFpEF -Patient euvolemic on exam -Continue home medications #H/o CVA -Stable -continue aspirin #Diabetes -Continue metformin -Monitor blood sugars before meals and at night -SSI prn #Hypertension -BP within acceptable limits -Continue home meds -Monitor BP #DNR/DNI #Diabetic diet
[2019-08-23] MEDS ORDERED: Warfarin 2 MG Tab PO ONE (15:30)
[2019-08-23] MEDS: metFORMIN 500 MG Tab PO SCH (18:12)
[2019-08-23] MEDS: Calcium Carbonate/Vitamin D3 1250 MG-200 Unit Tab PO SCH (18:12)
[2019-08-23] MEDS: FENOFIBRATE 160 MG PO SCH (18:38)
[2019-08-23] MEDS: Cholecalciferol (Vitamin D3) 25 MCG Tab PO SCH (20:38)
[2019-08-23] MEDS: Albuterol/Ipratropium 3.0-0.5 MG/3 ML Neb Soln NEB SCH (20:38)
[2019-08-23] MEDS: cloNIDine 0.1 MG Tab PO SCH (20:38)
[2019-08-23] MEDS: [UNRECOGNIZED DRUG - OTHER] EYEBOTH SCH (20:49)
[2019-08-24] MEDS: Albuterol/Ipratropium 3.0-0.5 MG/3 ML Neb Soln NEB SCH ×3 (07:50→21:38)
[2019-08-24] MEDS: metFORMIN 500 MG Tab PO SCH ×2 (08:04→17:39)
[2019-08-24] MEDS: Ferrous Sulfate 325 MG Tab PO SCH (08:37)
[2019-08-24] MEDS: cloNIDine 0.1 MG Tab PO SCH ×2 (08:37→21:38)
[2019-08-24] MEDS: Hydrochlorothiazide 25 MG Tab PO SCH (08:37)
[2019-08-24] MEDS: Metoprolol Succinate 50 MG Tab.ER PO SCH (08:38)
[2019-08-24] MEDS: Aspirin 81 MG Tab.EC PO SCH (08:39)
[2019-08-24] MEDS: Folic Acid 1 MG Tab PO SCH (08:39)
[2019-08-24] MEDS: amLODIPine 5 MG Tab PO SCH (08:39)
[2019-08-24] MEDS: CICLOPIROX 8% TP SCH (08:41)
[2019-08-24] MEDS: [UNRECOGNIZED DRUG - OTHER] EYEBOTH SCH ×2 (08:42→21:40)
[2019-08-24] MEDS ORDERED: Warfarin 2 MG Tab PO SCH (09:00)
[2019-08-24] MEDS ORDERED: Non-Formulary Medication 1 Each (Magnesium Citrate [Magnesium Citrate] 100 MG) PO SCH (09:00)
[2019-08-24] MEDS: OMEGA ACID ETHYL ESTERS PO SCH (10:51)
[2019-08-24] MEDS ORDERED: Warfarin 2 MG Tab PO ONE (14:00)
[2019-08-24] MEDS: Calcium Carbonate/Vitamin D3 1250 MG-200 Unit Tab PO SCH (17:39)
[2019-08-24] MEDS: FENOFIBRATE 160 MG PO SCH (17:40)
[2019-08-24] MEDS: Cholecalciferol (Vitamin D3) 25 MCG Tab PO SCH (21:35)
[2019-08-25] MEDS: Albuterol/Ipratropium 3.0-0.5 MG/3 ML Neb Soln NEB SCH ×3 (07:39→20:44)
[2019-08-25] MEDS: Ferrous Sulfate 325 MG Tab PO SCH (08:47)
[2019-08-25] MEDS: Folic Acid 1 MG Tab PO SCH (08:48)
[2019-08-25] MEDS: cloNIDine 0.1 MG Tab PO SCH ×2 (08:48→20:42)
[2019-08-25] MEDS: Hydrochlorothiazide 25 MG Tab PO SCH (08:49)
[2019-08-25] MEDS: Metoprolol Succinate 50 MG Tab.ER PO SCH (08:49)
[2019-08-25] MEDS: metFORMIN 500 MG Tab PO SCH ×2 (08:50→17:36)
[2019-08-25] MEDS: Aspirin 81 MG Tab.EC PO SCH (08:50)
[2019-08-25] MEDS: amLODIPine 5 MG Tab PO SCH (08:51)
[2019-08-25] MEDS: Furosemide 20 MG Tab PO SCH (08:55)
[2019-08-25] MEDS: MAGNESIUM OXIDE PO SCH (08:55)
[2019-08-25] MEDS: CICLOPIROX 8% TP SCH (08:56)
[2019-08-25] MEDS: [UNRECOGNIZED DRUG - OTHER] EYEBOTH SCH ×3 (08:57→21:23)
[2019-08-25] MEDS ORDERED: Warfarin 5 MG Tab PO ONE (14:00)
[2019-08-25] MEDS: Calcium Carbonate/Vitamin D3 1250 MG-200 Unit Tab PO SCH (17:36)
[2019-08-25] MEDS: FENOFIBRATE 160 MG PO SCH (17:37)
[2019-08-25] MEDS: Cholecalciferol (Vitamin D3) 25 MCG Tab PO SCH (20:41)
[2019-08-25] MEDS: Insulin Lispro 100 Units/ML 3 ML Vial SUBCUT SCH (21:16)
[2019-08-26] MEDS: Albuterol/Ipratropium 3.0-0.5 MG/3 ML Neb Soln NEB SCH ×3 (07:33→21:13)
[2019-08-26] MEDS: Insulin Lispro 100 Units/ML 3 ML Vial SUBCUT SCH ×4 (08:08→21:13)
[2019-08-26] MEDS: amLODIPine 5 MG Tab PO SCH (08:42)
[2019-08-26] MEDS: Metoprolol Succinate 50 MG Tab.ER PO SCH (08:43)
[2019-08-26] MEDS: Hydrochlorothiazide 25 MG Tab PO SCH (08:44)
[2019-08-26] MEDS: cloNIDine 0.1 MG Tab PO SCH ×2 (08:44→21:13)
[2019-08-26] MEDS: Folic Acid 1 MG Tab PO SCH (08:44)
[2019-08-26] MEDS: Ferrous Sulfate 325 MG Tab PO SCH (08:45)
[2019-08-26] MEDS: metFORMIN 500 MG Tab PO SCH ×2 (08:45→17:05)
[2019-08-26] MEDS: MAGNESIUM OXIDE PO SCH (08:45)
[2019-08-26] MEDS: Aspirin 81 MG Tab.EC PO SCH (08:45)
[2019-08-26] MEDS: [UNRECOGNIZED DRUG - OTHER] EYEBOTH SCH ×2 (08:47→21:15)
[2019-08-26] MEDS: CICLOPIROX 8% TP SCH (08:48)
[2019-08-26] MEDS ORDERED: Warfarin 5 MG Tab PO ONE (14:00)
[2019-08-26] MEDS: FENOFIBRATE 160 MG PO SCH (17:05)
[2019-08-26] MEDS: Calcium Carbonate/Vitamin D3 1250 MG-200 Unit Tab PO SCH (17:05)
[2019-08-26] MEDS: Cholecalciferol (Vitamin D3) 25 MCG Tab PO SCH (21:27)
[2019-08-27] MEDS: Albuterol/Ipratropium 3.0-0.5 MG/3 ML Neb Soln NEB SCH ×4 (06:44→20:48)
[2019-08-27] MEDS: Insulin Lispro 100 Units/ML 3 ML Vial SUBCUT SCH ×4 (08:02→20:56)
[2019-08-27] MEDS: Aspirin 81 MG Tab.EC PO SCH (08:30)
[2019-08-27] MEDS: Ferrous Sulfate 325 MG Tab PO SCH (08:31)
[2019-08-27] MEDS: amLODIPine 5 MG Tab PO SCH (08:31)
[2019-08-27] MEDS: Metoprolol Succinate 50 MG Tab.ER PO SCH (08:31)
[2019-08-27] MEDS: Folic Acid 1 MG Tab PO SCH (08:32)
[2019-08-27] MEDS: cloNIDine 0.1 MG Tab PO SCH ×2 (08:32→20:39)
[2019-08-27] MEDS: Hydrochlorothiazide 25 MG Tab PO SCH (08:34)
[2019-08-27] MEDS: metFORMIN 500 MG Tab PO SCH ×2 (08:35→17:45)
[2019-08-27] MEDS: MAGNESIUM OXIDE PO SCH (08:36)
[2019-08-27] MEDS: CICLOPIROX 8% TP SCH (08:37)
[2019-08-27] MEDS: [UNRECOGNIZED DRUG - OTHER] EYEBOTH SCH ×2 (08:38→20:45)
[2019-08-27] MEDS: Furosemide 20 MG Tab PO SCH (09:01)
[2019-08-27] MEDS ORDERED: Warfarin 5 MG Tab PO ONE (14:00)
[2019-08-27] MEDS: FENOFIBRATE 160 MG PO SCH (17:46)
[2019-08-27] MEDS: Calcium Carbonate/Vitamin D3 1250 MG-200 Unit Tab PO SCH (17:46)
[2019-08-27] MEDS: Cholecalciferol (Vitamin D3) 25 MCG Tab PO SCH (20:38)
[2019-08-28] MEDS: Albuterol/Ipratropium 3.0-0.5 MG/3 ML Neb Soln NEB SCH ×3 (07:18→21:03)
[2019-08-28] MEDS: cloNIDine 0.1 MG Tab PO SCH ×2 (08:41→20:55)
[2019-08-28] MEDS: Folic Acid 1 MG Tab PO SCH (08:42)
[2019-08-28] MEDS: Hydrochlorothiazide 25 MG Tab PO SCH (08:42)
[2019-08-28] MEDS: Ferrous Sulfate 325 MG Tab PO SCH (08:42)
[2019-08-28] MEDS: amLODIPine 5 MG Tab PO SCH (08:43)
[2019-08-28] MEDS: metFORMIN 500 MG Tab PO SCH ×2 (08:43→17:51)
[2019-08-28] MEDS: Metoprolol Succinate 50 MG Tab.ER PO SCH (08:44)
[2019-08-28] MEDS: Aspirin 81 MG Tab.EC PO SCH (08:44)
[2019-08-28] MEDS: CICLOPIROX 8% TP SCH (08:45)
[2019-08-28] MEDS: Insulin Lispro 100 Units/ML 3 ML Vial SUBCUT SCH ×4 (08:45→21:09)
[2019-08-28] MEDS: MAGNESIUM OXIDE PO SCH (08:46)
[2019-08-28] MEDS: [UNRECOGNIZED DRUG - OTHER] EYEBOTH SCH ×2 (08:46→20:58)
[2019-08-28] MEDS ORDERED: Warfarin 5 MG Tab PO ONE (14:00)
[2019-08-28] MEDS: Calcium Carbonate/Vitamin D3 1250 MG-200 Unit Tab PO SCH (17:51)
[2019-08-28] MEDS: FENOFIBRATE 160 MG PO SCH (17:52)
[2019-08-28] MEDS: Cholecalciferol (Vitamin D3) 25 MCG Tab PO SCH (20:55)
[2019-08-29 06:52] LABS: ANION GAP 12.9
[2019-08-29] MEDS: Albuterol/Ipratropium 3.0-0.5 MG/3 ML Neb Soln NEB SCH ×4 (07:16→20:09)
[2019-08-29] MEDS: Insulin Lispro 100 Units/ML 3 ML Vial SUBCUT SCH ×4 (07:45→21:03)
[2019-08-29] MEDS: amLODIPine 5 MG Tab PO SCH (08:32)
[2019-08-29] MEDS: cloNIDine 0.1 MG Tab PO SCH ×2 (08:33→20:08)
[2019-08-29] MEDS: Aspirin 81 MG Tab.EC PO SCH (08:33)
[2019-08-29] MEDS: metFORMIN 500 MG Tab PO SCH ×2 (08:33→17:37)
[2019-08-29] MEDS: Hydrochlorothiazide 25 MG Tab PO SCH (08:33)
[2019-08-29] MEDS: Metoprolol Succinate 50 MG Tab.ER PO SCH (08:33)
[2019-08-29] MEDS: Folic Acid 1 MG Tab PO SCH (08:34)
[2019-08-29] MEDS: CICLOPIROX 8% TP SCH (08:34)
[2019-08-29] MEDS: Ferrous Sulfate 325 MG Tab PO SCH (08:34)
[2019-08-29] MEDS: [UNRECOGNIZED DRUG - OTHER] EYEBOTH SCH ×2 (08:35→20:13)
[2019-08-29] MEDS: MAGNESIUM OXIDE PO SCH (08:36)
[2019-08-29] MEDS: Furosemide 20 MG Tab PO SCH (08:44)
--- NOTE | 2019-08-29 09:35 | PCM.PN ---
- General Info Date of Service: 08/29/19 Admission Dx/Problem (Free Text): Admission Diagnosis/Problem Admission Diagnosis/Problem Physical deconditioning Functional Status: Reports: Pain Controlled - Review of Systems General: Reports: Weakness. Denies: Fever Pulmonary: Denies: Shortness of Breath Cardiovascular: Denies: Chest Pain Gastrointestinal: Denies: Abdominal Pain - Patient Data Vitals - Most Recent: Last Vital Signs Temp 36.7 C 08/29/19 07:54 Pulse 68 08/29/19 08:33 Resp 20 08/29/19 07:54 BP 147/85 H 08/29/19 08:33 Pulse Ox 100 08/29/19 07:54 Weight - Most Recent: 70.534 kg I&O - Last 24 Hours: Intake & Output 08/28/19 08/29/19 08/29/19 22:59 06:59 14:59 Intake Total 740 250 480 Balance 740 250 480 Lab Results Last 24 Hours: Laboratory Results - last 24 hr 08/28/19 08/28/19 08/28/19 Range/Units 11:42 16:31 20:49 WBC (5.0-10.0) 10^3/uL RBC (4.2-5.4) 10^6/uL Hgb (12.0-16.0) g/dL Hct (37.0-47.0) % MCV (80-100) fL MCH (27.0-34.0) pg MCHC (33.0-35.0) g/dL Plt Count (150-450) 10^3/uL Neut % (Auto) (42.2-75.2) % Lymph % (Auto) (20.5-50.1) % [place] % (Auto) (2-8) % Eos % (Auto) (1.0-3.0) % Baso % (Auto) (0.0-1.0) % PT (9.0-12.0) SEC INR (0.9-1.2) Sodium (135-145) mmol/L Potassium (3.6-5.0) mmol/L Chloride (101-111) mmol/L Carbon Dioxide (21.0-31.0) mmol/L Anion Gap BUN (7-18) mg/dL Creatinine (0.6-1.3) mg/dL Est Cr Clr Drug Dosing mL/min Estimated GFR (MDRD) Glucose (74-105) mg/dL POC Glucose 232 H 186 H 221 H (83-110) mg/dl Calcium (8.4-10.2) mg/dl 08/29/19 08/29/19 08/29/19 Range/Units 06:20 06:20 06:20 WBC 7.0 (5.0-10.0) 10^3/uL RBC 3.84 L (4.2-5.4) 10^6/uL Hgb 8.6 L (12.0-16.0) g/dL Hct 28.6 L (37.0-47.0) % MCV 74.5 L (80-100) fL MCH 22.4 L (27.0-34.0) pg MCHC 30.1 L (33.0-35.0) g/dL Plt Count 306 (150-450) 10^3/uL Neut % (Auto) 49.5 (42.2-75.2) % Lymph % (Auto) 28.8 (20.5-50.1) % [place] % (Auto) 9.2 H (2-8) % Eos % (Auto) 10.8 H (1.0-3.0) % Baso % (Auto) 1.7 H (0.0-1.0) % PT 21.2 H (9.0-12.0) SEC INR 2.2 H (0.9-1.2) Sodium 140 (135-145) mmol/L Potassium 4.9 D (3.6-5.0) mmol/L Chloride 104 (101-111) mmol/L Carbon Dioxide 28.0 (21.0-31.0) mmol/L Anion Gap 12.9 BUN 35 H (7-18) mg/dL Creatinine 0.9 (0.6-1.3) mg/dL Est Cr Clr Drug Dosing 39.63 mL/min Estimated GFR (MDRD) 59 Glucose 148 H (74-105) mg/dL POC Glucose (83-110) mg/dl Calcium 10.4 H (8.4-10.2) mg/dl 08/29/19 Range/Units 07:37 WBC (5.0-10.0) 10^3/uL RBC (4.2-5.4) 10^6/uL Hgb (12.0-16.0) g/dL Hct (37.0-47.0) % MCV (80-100) fL MCH (27.0-34.0) pg MCHC (33.0-35.0) g/dL Plt Count (150-450) 10^3/uL Neut % (Auto) (42.2-75.2) % Lymph % (Auto) (20.5-50.1) % [place] % (Auto) (2-8) % Eos % (Auto) (1.0-3.0) % Baso % (Auto) (0.0-1.0) % PT (9.0-12.0) SEC INR (0.9-1.2) Sodium (135-145) mmol/L Potassium (3.6-5.0) mmol/L Chloride (101-111) mmol/L Carbon Dioxide (21.0-31.0) mmol/L Anion Gap BUN (7-18) mg/dL Creatinine (0.6-1.3) mg/dL Est Cr Clr Drug Dosing mL/min Estimated GFR (MDRD) Glucose (74-105) mg/dL POC Glucose 143 H (83-110) mg/dl Calcium (8.4-10.2) mg/dl Med Orders - Current: Current Medications Albuterol (Proventil Hfa) 0 gm INH Q4H PRN PRN Reason: Wheezing Albuterol/Ipratropium (Duoneb 3.0-0.5 Mg/3 Ml) 3 ml NEB TID@0700,1500,2100 [facility] Last Admin: 08/29/19 07:16 Dose: 3 ml Amlodipine Besylate (Norvasc) 10 mg PO DAILY [facility] Last Admin: 08/29/19 08:32 Dose: 10 mg Aspirin (Halfprin) 81 mg PO DAILY [facility] Last Admin: 08/29/19 08:33 Dose: 81 mg Calcium Carbonate (Calcium Carbonate/Vitamin D 1250 Mg-200 Unit) 1 tab PO DAILY @1800 [facility] Last Admin: 08/28/19 17:51 Dose: 1 tab Cholecalciferol (Vitamin D3) 50 mcg PO BEDTIME [facility] Last Admin: 08/28/19 20:55 Dose: 50 mcg Clonidine HCl (Catapres) 0.2 mg PO BID [facility] Last Admin: 08/29/19 08:33 Dose: 0.2 mg Ferrous Sulfate (Ferrous Sulfate) 325 mg PO DAILY [facility] Last Admin: 08/29/19 08:34 Dose: 325 mg Folic Acid (Folic Acid) 1 mg PO DAILY [facility] Last Admin: 08/29/19 08:34 Dose: 1 mg Furosemide (Lasix) 20 mg PO Q48H [facility] Last Admin: 08/29/19 08:44 Dose: 20 mg Hydrochlorothiazide (Hydrochlorothiazide) 25 mg PO DAILY [facility] Last Admin: 08/29/19 08:33 Dose: 25 mg Insulin Human Lispro (Humalog) 0 unit SUBCUT ACBED [facility]; Protocol Last Admin: 08/29/19 07:45 Dose: Not Given Metformin HCl (Glucophage) 1,000 mg PO BIDMEALS [facility] Last Admin: 08/29/19 08:33 Dose: 1,000 mg Metoprolol Succinate (Toprol Xl) 100 mg PO DAILY [facility] Last Admin: 08/29/19 08:33 Dose: 100 mg Ciclopirox Top Soln (8% Own Med) 0 ml TP DAILY [facility] Last Admin: 08/29/19 08:34 Dose: 1 ml Fenofibrate 160 Mg (Own Med) 0 mg PO DAILY@1800 [facility] Last Admin: 08/28/19 17:52 Dose: 160 mg Oxycodone /Acetaminophen 7.5mg/325mg Tabs Own Med 1 tab PO Q8H PRN PRN Reason: Pain Last Admin: 08/23/19 21:03 Dose: 1 tab Systane Ultra Oph 10ml Btl Own Med* * 1 drop EYEBOTH BID [facility] Last Admin: 08/29/19 08:35 Dose: 1 drop Pantoprazole Sodium (Protonix) 40 mg PO ACBRK PRN PRN Reason: reflux Magnesium Oxide Tab (Pt's Own Med) 0 each PO DAILY [facility] Last Admin: 08/29/19 08:36 Dose: 1 each Warfarin Sodium (Pharmacy To Dose - Warfarin) 1 dose PO ASDIRECTED [facility] Warfarin Sodium (Coumadin) 5 mg PO ONETIME ONE Stop: 08/29/19 14:01 Discontinued Medications Albuterol/Ipratropium (Duoneb 3.0-0.5 Mg/3 Ml) 3 ml NEB Q4H PRN PRN Reason: Wheezing Last Admin: 08/23/19 15:23 Dose: 3 ml Non-Formulary Medication (Magnesium Citrate [Magnesium Citrate]) 100 mg PO DAILY [facility] Last Admin: 08/24/19 10:51 Dose: Not Given Non-Formulary Medication ([place]-3 Acid Ethyl Esters [Lovaza]) 2 gm PO BID [facility] Last Admin: 08/24/19 10:51 Dose: Not Given Warfarin Sodium (Coumadin) 4 mg PO ONETIME ONE Stop: 08/23/19 15:31 Last Admin: 08/23/19 16:04 Dose: 4 mg Warfarin Sodium (Coumadin) 4 mg PO ONETIME ONE Stop: 08/24/19 14:01 Last Admin: 08/24/19 14:12 Dose: 4 mg Warfarin Sodium (Coumadin) 5 mg PO ONETIME ONE Stop: 08/25/19 14:01 Last Admin: 08/25/19 13:41 Dose: 5 mg Warfarin Sodium (Coumadin) 5 mg PO ONETIME ONE Stop: 08/26/19 14:01 Last Admin: 08/26/19 15:02 Dose: 5 mg Warfarin Sodium (Coumadin) 5 mg PO ONETIME ONE Stop: 08/27/19 14:01 Last Admin: 08/27/19 14:32 Dose: 5 mg Warfarin Sodium (Coumadin) 5 mg PO ONETIME ONE Stop: 08/28/19 14:01 Last Admin: 08/28/19 13:34 Dose: 5 mg - Exam General: Alert, Oriented Neck: Supple Lungs: Clear to Auscultation, Normal Respiratory Effort, Decreased Breath Sounds Cardiovascular: Regular Rate, Regular Rhythm GI/Abdominal Exam: Normal Bowel Sounds, Soft Extremities: No Pedal Edema - Problem List & Annotations (1) Pulmonary embolism SNOMED Code(s): 95018908 Code(s): I26.99 - OTHER PULMONARY EMBOLISM WITHOUT ACUTE COR PULMONALE Status: Acute Current Visit: Yes (2) Abdominal aorta thrombosis SNOMED Code(s): 65527901 Code(s): I74.09 - OTHER ARTERIAL EMBOLISM AND THROMBOSIS OF ABDOMINAL AORTA Status: Acute Current Visit: No (3) Anticoagulated on Coumadin SNOMED Code(s): 28750267 Code(s): Z79.01 - SHELTER (CURRENT) USE OF ANTICOAGULANTS Status: Acute Current Visit: No - Problem List Review Problem List Initiated/Reviewed/Updated: Yes - My Orders Last 24 Hours: My Active Orders 08/29/19 14:00 Warfarin [Coumadin] 5 mg PO ONETIME ONE - Plan Plan:: #Generalized debility following hospitalization - working well with PT/OT #Pulmonary embolism, Abdominal aortic thrombus therapeutic INR -Continue Coumadin -Monitor INR #Chronic Anemia improving -Hgb 8.6 #h/o COPD -Stable -Continue home meds #HFpEF -Patient euvolemic on exam -Continue home medications #H/o CVA -Stable -continue aspirin #Diabetes -Continue metformin -Monitor blood sugars before meals and at night -SSI prn #Hypertension -BP within acceptable limits -Continue home meds -Monitor BP #DNR/DNI #Diabetic diet
[2019-08-29] MEDS ORDERED: Warfarin 5 MG Tab PO ONE (14:00)
[2019-08-29] MEDS: Calcium Carbonate/Vitamin D3 1250 MG-200 Unit Tab PO SCH (17:37)
[2019-08-29] MEDS: FENOFIBRATE 160 MG PO SCH (17:38)
[2019-08-29] MEDS: Cholecalciferol (Vitamin D3) 25 MCG Tab PO SCH (20:08)
[2019-08-30] MEDS: Albuterol/Ipratropium 3.0-0.5 MG/3 ML Neb Soln NEB SCH ×3 (07:02→20:47)
[2019-08-30] MEDS: Insulin Lispro 100 Units/ML 3 ML Vial SUBCUT SCH ×4 (08:03→21:53)
[2019-08-30] MEDS: metFORMIN 500 MG Tab PO SCH ×2 (08:32→17:14)
[2019-08-30] MEDS: Ferrous Sulfate 325 MG Tab PO SCH (08:32)
[2019-08-30] MEDS: amLODIPine 5 MG Tab PO SCH (08:33)
[2019-08-30] MEDS: Metoprolol Succinate 50 MG Tab.ER PO SCH (08:33)
[2019-08-30] MEDS: Aspirin 81 MG Tab.EC PO SCH (08:33)
[2019-08-30] MEDS: Hydrochlorothiazide 25 MG Tab PO SCH (08:33)
[2019-08-30] MEDS: cloNIDine 0.1 MG Tab PO SCH ×2 (08:33→20:46)
[2019-08-30] MEDS: Folic Acid 1 MG Tab PO SCH (08:33)
[2019-08-30] MEDS: MAGNESIUM OXIDE PO SCH (08:36)
[2019-08-30] MEDS: CICLOPIROX 8% TP SCH (08:38)
[2019-08-30] MEDS: [UNRECOGNIZED DRUG - OTHER] EYEBOTH SCH ×2 (08:39→20:31)
[2019-08-30] MEDS ORDERED: guaiFENesin 100 MG/5 ML Soln 5 ML UD Cup PO PRN (10:40)
[2019-08-30] MEDS ORDERED: Warfarin 5 MG Tab PO SCH (14:00)
[2019-08-30] MEDS: Calcium Carbonate/Vitamin D3 1250 MG-200 Unit Tab PO SCH (17:14)
[2019-08-30] MEDS: FENOFIBRATE 160 MG PO SCH (17:18)
[2019-08-30] MEDS: Cholecalciferol (Vitamin D3) 25 MCG Tab PO SCH (20:46)
[2019-08-31] MEDS: Albuterol/Ipratropium 3.0-0.5 MG/3 ML Neb Soln NEB SCH (07:16)
[2019-08-31 08:08] VITALS: BP 166/42; PULSE 62
[2019-08-31] MEDS: Insulin Lispro 100 Units/ML 3 ML Vial SUBCUT SCH ×2 (08:12→12:26)
[2019-08-31] MEDS: Aspirin 81 MG Tab.EC PO SCH (08:56)
[2019-08-31] MEDS: metFORMIN 500 MG Tab PO SCH (08:56)
[2019-08-31] MEDS: amLODIPine 5 MG Tab PO SCH (08:56)
[2019-08-31] MEDS: Folic Acid 1 MG Tab PO SCH (08:57)
[2019-08-31] MEDS: Metoprolol Succinate 50 MG Tab.ER PO SCH (08:57)
[2019-08-31] MEDS: cloNIDine 0.1 MG Tab PO SCH (08:57)
[2019-08-31] MEDS: Ferrous Sulfate 325 MG Tab PO SCH (08:57)
[2019-08-31] MEDS: MAGNESIUM OXIDE PO SCH (08:57)
[2019-08-31] MEDS: Hydrochlorothiazide 25 MG Tab PO SCH (08:57)
[2019-08-31] MEDS: [UNRECOGNIZED DRUG - OTHER] EYEBOTH SCH (08:58)
[2019-08-31] MEDS: CICLOPIROX 8% TP SCH (08:59)
[2019-08-31] MEDS: Furosemide 20 MG Tab PO SCH (09:10)
--- NOTE | 2019-08-31 11:06 | PCM.DCSUM1 ---
Discharge Summary - Hospital Course Free Text/Narrative:: Ms. Ball is an 88-y.o female with PMH of HFpEF, COPD, TIA, and DM who was admitted to swing bed for PT/OT after she had been treated for PE in [facility]. Patient tolerated therapies and is being discharged home to follow up with PCP. She is to continue warfarin and follow up with PCP for titration. HPI Initial Comments: Saba Ballis a 88 y.o.F with PMH of HFpEF COPD, Dm, TIA. She was admitted to [facility] with SOB following transfer from [facility] ED for SOB. CT chest with PE protocol showed eccentric thrombus within the upper abdominal aorta, possible 6 mm ulceration within thrombus and right lower lobe pulmonary artery filling defect worrisome for pulmonary embolism. Patient received anticoagulant wit improvement. She was started on NOAC but switched to Coumadin at patient request. She was physically deconditioned following hospitalization and discharged to [facility] swing bed to continue PT/OT for strengthening. At bedside evaluation she was seen sitting up in chair in no distress. She denies any complaint. Daughter by bedside who says she is just generally weak. No chest pain, SOB. Diagnosis: Stroke: No - Discharge Data Discharge Date: 08/31/19 Discharge Disposition: Home, Self-Care 01 Condition: Good - Referral to Home Health Primary Care Physician: Umberto Weeks MD - Patient Summary/Data Consults: Consultations 08/23/19 13:12 OT Evaluation and Treatment [CONS] Routine PT Evaluation and Treatment [CONS] Routine Respiratory Care Assess and Treatment [CONS] Routine - Discharge Plan *PRESCRIPTION DRUG MONITORING PROGRAM REVIEWED*: No *COPY OF PRESCRIPTION DRUG MONITORING REPORT IN PATIENT ERWIN: No Home Medications: Home Meds Fenofibrate 160 mg PO .1800 04/20/15 [History] Metoprolol Succinate [Toprol XL] 100 mg PO DAILY 04/20/15 [History] metFORMIN [Glucophage] 1,000 mg PO BIDMEALS 04/20/15 [History] Pantoprazole [ProTONIX] 40 mg PO DAILY PRN 03/24/16 [History] cloNIDine [Catapres] 0.2 mg PO BID 02/10/17 [History] oxyCODONE HCl/Acetaminophen [Percocet 7.5-325 mg Tablet] 1 tab PO Q8HR PRN 06/12 /18 [History] Cholecalciferol (Vitamin D3) [Vitamin D3] 2,000 unit PO BEDTIME 07/25/18 [ History] Calcium Citrate/Vitamin D3 [Citracal + D Maximum Caplet] 1 each PO .1800 [History] Furosemide [Lasix] 20 mg PO Q48H 30 Days #15 tablet 03/07/19 [Rx] Albuterol [Proventil HFA] 2 puff INH Q4H PRN 08/23/19 [History] Albuterol/Ipratropium [DuoNeb 3.0-0.5 MG/3 ML] 3 ml .XX Q4H PRN 08/23/19 [ History] Aspirin [Adult Low Dose Aspirin EC] 81 mg PO DAILY 08/23/19 [History] Ciclopirox/Ure/Camph/Menth/Euc [Ciclopirox 8% Treatment Kit] 34.6 ml TP DAILY [History] Ferrous Sulfate 325 mg PO DAILY 08/23/19 [History] Folic Acid 1 mg PO DAILY 08/23/19 [History] Magnesium Oxide [Magnesium] 400 mg PO DAILY 08/23/19 [History] [place]-3 Acid Ethyl Esters [Lovaza] 2 gm PO BID 08/23/19 [History] Propylene Glycol/Peg 400 [Systane 0.3-0.4% Eye Drops] 1 drop EYEBOTH BID [History] Warfarin [Coumadin] 5 mg PO DAILY 08/23/19 [History] amLODIPine [Norvasc] 10 mg PO DAILY 08/23/19 [History] hydroCHLOROthiazide [Hydrochlorothiazide] 25 mg PO DAILY 08/23/19 [History] Patient Handouts: Bleeding Precautions When on Anticoagulant Therapy, Adult, What You Need to Know About Warfarin, Warfarin tablets - Discharge Summary/Plan Comment DC Time >30 min.: Yes - General Info Date of Service: 08/31/19 Admission Dx/Problem (Free Text: Admission Diagnosis/Problem Admission Diagnosis/Problem Physical deconditioning Subjective Update: No acute events overnight. Reports that she is doing okay. Denies chest pain, shortness of breath, f/c, n/v/d/c, or any new symptoms. - Review of Systems General: Reports: No Symptoms HEENT: Reports: No Symptoms Pulmonary: Reports: No Symptoms Cardiovascular: Reports: No Symptoms Gastrointestinal: Reports: No Symptoms Genitourinary: Reports: No Symptoms Musculoskeletal: Reports: No Symptoms Skin: Reports: No Symptoms Neurological: Reports: No Symptoms Psychiatric: Reports: No Symptoms - Patient Data Vitals - Most Recent: Last Vital Signs Temp 97.7 F 08/31/19 08:07 Pulse 62 08/31/19 08:57 Resp 20 08/31/19 08:07 BP 166/42 H 08/31/19 08:57 Pulse Ox 96 08/31/19 08:07 Weight - Most Recent: 156 lb 12.8 oz I&O - Last 24 hours: Intake & Output 08/30/19 08/31/19 08/31/19 22:59 06:59 14:59 Intake Total 1050 350 Balance 1050 350 Lab Results - Last 24 hrs: Laboratory Results - last 24 hr 08/30/19 08/30/19 08/30/19 Range/Units 11:08 16:54 20:40 POC Glucose 155 H 201 H 203 H (83-110) mg/dl 08/31/19 Range/Units 07:37 POC Glucose 145 H (83-110) mg/dl Med Orders - Current: Current Medications Albuterol (Proventil Hfa) 0 gm INH Q4H PRN PRN Reason: Wheezing Albuterol/Ipratropium (Duoneb 3.0-0.5 Mg/3 Ml) 3 ml NEB TID@0700,1500,2100 [facility] Last Admin: 08/31/19 07:16 Dose: 3 ml Amlodipine Besylate (Norvasc) 10 mg PO DAILY [facility] Last Admin: 08/31/19 08:56 Dose: 10 mg Aspirin (Halfprin) 81 mg PO DAILY [facility] Last Admin: 08/31/19 08:56 Dose: 81 mg Calcium Carbonate (Calcium Carbonate/Vitamin D 1250 Mg-200 Unit) 1 tab PO DAILY @1800 [facility] Last Admin: 08/30/19 17:14 Dose: 1 tab Cholecalciferol (Vitamin D3) 50 mcg PO BEDTIME [facility] Last Admin: 08/30/19 20:46 Dose: 50 mcg Clonidine HCl (Catapres) 0.2 mg PO BID [facility] Last Admin: 08/31/19 08:57 Dose: 0.2 mg Ferrous Sulfate (Ferrous Sulfate) 325 mg PO DAILY [facility] Last Admin: 08/31/19 08:57 Dose: 325 mg Folic Acid (Folic Acid) 1 mg PO DAILY [facility] Last Admin: 08/31/19 08:57 Dose: 1 mg Furosemide (Lasix) 20 mg PO Q48H [facility] Last Admin: 08/31/19 09:10 Dose: 20 mg Guaifenesin (Robitussin) 100 mg PO Q6H PRN PRN Reason: Cough Hydrochlorothiazide (Hydrochlorothiazide) 25 mg PO DAILY [facility] Last Admin: 08/31/19 08:57 Dose: 25 mg Insulin Human Lispro (Humalog) 0 unit SUBCUT ACBED [facility]; Protocol Last Admin: 08/31/19 08:12 Dose: Not Given Metformin HCl (Glucophage) 1,000 mg PO BIDMEALS [facility] Last Admin: 08/31/19 08:56 Dose: 1,000 mg Metoprolol Succinate (Toprol Xl) 100 mg PO DAILY [facility] Last Admin: 08/31/19 08:57 Dose: 100 mg Ciclopirox Top Soln (8% Own Med) 0 ml TP DAILY [facility] Last Admin: 08/31/19 08:59 Dose: 1 ml Fenofibrate 160 Mg (Own Med) 0 mg PO DAILY@1800 [facility] Last Admin: 08/30/19 17:18 Dose: 160 mg Oxycodone /Acetaminophen 7.5mg/325mg Tabs Own Med 1 tab PO Q8H PRN PRN Reason: Pain Last Admin: 08/23/19 21:03 Dose: 1 tab Systane Ultra Oph 10ml Btl Own Med* * 1 drop EYEBOTH BID [facility] Last Admin: 08/31/19 08:58 Dose: 1 drop Pantoprazole Sodium (Protonix) 40 mg PO ACBRK PRN PRN Reason: reflux Magnesium Oxide Tab (Pt's Own Med) 0 each PO DAILY [facility] Last Admin: 08/31/19 08:57 Dose: 1 each Warfarin Sodium (Pharmacy To Dose - Warfarin) 1 dose PO ASDIRECTED [facility] Warfarin Sodium (Coumadin) 5 mg PO DAILY@1400 [facility] Stop: 09/01/19 14:01 Last Admin: 08/30/19 14:39 Dose: 5 mg Discontinued Medications Albuterol/Ipratropium (Duoneb 3.0-0.5 Mg/3 Ml) 3 ml NEB Q4H PRN PRN Reason: Wheezing Last Admin: 08/23/19 15:23 Dose: 3 ml Non-Formulary Medication (Magnesium Citrate [Magnesium Citrate]) 100 mg PO DAILY [facility] Last Admin: 08/24/19 10:51 Dose: Not Given Non-Formulary Medication ([place]-3 Acid Ethyl Esters [Lovaza]) 2 gm PO BID [facility] Last Admin: 08/24/19 10:51 Dose: Not Given Warfarin Sodium (Coumadin) 4 mg PO ONETIME ONE Stop: 08/23/19 15:31 Last Admin: 08/23/19 16:04 Dose: 4 mg Warfarin Sodium (Coumadin) 4 mg PO ONETIME ONE Stop: 08/24/19 14:01 Last Admin: 08/24/19 14:12 Dose: 4 mg Warfarin Sodium (Coumadin) 5 mg PO ONETIME ONE Stop: 08/25/19 14:01 Last Admin: 08/25/19 13:41 Dose: 5 mg Warfarin Sodium (Coumadin) 5 mg PO ONETIME ONE Stop: 08/26/19 14:01 Last Admin: 08/26/19 15:02 Dose: 5 mg Warfarin Sodium (Coumadin) 5 mg PO ONETIME ONE Stop: 08/27/19 14:01 Last Admin: 08/27/19 14:32 Dose: 5 mg Warfarin Sodium (Coumadin) 5 mg PO ONETIME ONE Stop: 08/28/19 14:01 Last Admin: 08/28/19 13:34 Dose: 5 mg Warfarin Sodium (Coumadin) 5 mg PO ONETIME ONE Stop: 08/29/19 14:01 Last Admin: 08/29/19 14:42 Dose: 5 mg - Exam General: Reports: Alert, Oriented, Cooperative, No Acute Distress HEENT: Reports: Pupils Equal, Mucous Membr. Moist/[place] Neck: Reports: Supple Lungs: Reports: Clear to Auscultation, Normal Respiratory Effort Cardiovascular: Reports: Regular Rate, Regular Rhythm, No Murmurs GI/Abdominal Exam: Normal Bowel Sounds, Soft, Non-Tender, No Distention Extremities: Normal Inspection, Non-Tender, No Pedal Edema Skin: Reports: Warm, Dry, Intact Neurological: Reports: No New Focal Deficit Psy/Mental Status: Reports: Alert, Normal Affect, Normal Mood *Q Meaningful Use (DIS) - VTE *Q VTE Anticoagulation Contraindications: Medical/Procedure Contrai
== END 2019-08-31 13:30 | disposition home or self-care (01) | DRG 947 ==
LOC: DL.MS 11:58 → UNDOADMIN 11:58 → DL.MS 13:12
PROVIDERS: ADMIT Student in an Organized Health Care Education/Training Program; ATTEND Internal Medicine
DX: R53.81 Other malaise (principal); I26.99 Other pulmonary embolism without acute cor pulmonale; I74.09 Other arterial embolism and thrombosis of abdominal aorta; I50.30 Unspecified diastolic (congestive) heart failure; D64.9 Anemia, unspecified; J44.9 Chronic obstructive pulmonary disease, unspecified; Z66 Do not resuscitate; I48.91 Unspecified atrial fibrillation; E11.9 Type 2 diabetes mellitus without complications; I11.0 Hypertensive heart disease with heart failure; E78.00 Pure hypercholesterolemia, unspecified; K21.9 Gastro-esophageal reflux disease without esophagitis; M19.90 Unspecified osteoarthritis, unspecified site; Z86.73 Personal history of transient ischemic attack (TIA), and cerebral infarction without residual deficits; Z79.01 Long term (current) use of anticoagulants; Z88.0 Allergy status to penicillin; Z88.5 Allergy status to narcotic agent; Z88.1 Allergy status to other antibiotic agents; Z79.82 Long term (current) use of aspirin; Z79.899 Other long term (current) drug therapy
CPT/HCPCS: 36415; 80048; 81001; 82962; 85025; 85610; 94640; 97110-GO; 97110-GP; 97116-GP; 97162-GP; 97165-GO; 97530-GO; 97535-GO; A9270-GY; J1815; J7620-GY

== ENCOUNTER 2019-10-28 15:40 | Inpatient (IN) | payer MEDICARE, BC ==
--- NOTE | 2019-10-28 16:54 | PCM.HP ---
H&P History of Present Illness - General Date of Service: 10/28/19 Admit Problem/Dx: GI bleed Source of Information: Patient, Provider (Dr. Weeks) - History of Present Illness Initial Comments - Free Text/Narative: 89-year-old with a recent diagnosis of pulmonary embolism. The patient has been on aspirin and Coumadin She also has a history of anemia with iron, B12, folate deficiency The patient has been taking iron and has had dark black stool. In the past few days the patient was increasingly weak, sleepy. She was noted to have fresh blood on toilet tissue after wiping She went to the clinic and was noted to have significant anemia. She denies abdominal pain, No nausea or vomiting. No fever or chills. No chest pain. No shortness of breath. - Related Data Allergies/Adverse Reactions: Allergies Allergy/AdvReac Type Severity Reaction Status Date / Time amoxicillin Allergy Hives Verified 10/28/19 16:24 ezetimibe Allergy Cannot Verified 10/28/19 16:24 Remember morphine Allergy Confusion Verified 10/28/19 16:24 moxifloxacin Allergy Cannot Verified 10/28/19 16:24 Remember naproxen [From Aleve] Allergy Cannot Verified 10/28/19 16:24 Remember Amyshal-Ftt-Xuh Reductase Allergy Muscle Verified 10/28/19 16:24 Inhibitor Aches sulindac Allergy Cannot Verified 10/28/19 16:24 Remember Tetracyclines Allergy Cannot Verified 10/28/19 16:24 Remember Home Medications: Home Meds Fenofibrate 160 mg PO .1800 04/20/15 [History] Metoprolol Succinate [Toprol XL] 100 mg PO DAILY 04/20/15 [History] metFORMIN [Glucophage] 1,000 mg PO BIDMEALS 04/20/15 [History] Pantoprazole [ProTONIX] 40 mg PO DAILY PRN 03/24/16 [History] cloNIDine [Catapres] 0.2 mg PO BID 02/10/17 [History] Cholecalciferol (Vitamin D3) [Vitamin D3] 2,000 unit PO BEDTIME 07/25/18 [ History] Calcium Citrate/Vitamin D3 [Citracal + D Maximum Caplet] 1 each PO .1800 [History] Albuterol [Proventil HFA] 2 puff INH Q4H PRN 08/23/19 [History] Albuterol/Ipratropium [DuoNeb 3.0-0.5 MG/3 ML] 3 ml INH Q4H PRN 08/23/19 [ History] Aspirin [Adult Low Dose Aspirin EC] 81 mg PO DAILY 08/23/19 [History] Ciclopirox/Ure/Camph/Menth/Euc [Ciclopirox 8% Treatment Kit] 34.6 ml TP DAILY [History] Ferrous Sulfate 325 mg PO .SUPPER 08/23/19 [History] Folic Acid 1 mg PO DAILY 08/23/19 [History] Magnesium Oxide [Magnesium] 100 mg PO DAILY 08/23/19 [History] [place]-3 Acid Ethyl Esters [Lovaza] 2 gm PO BID 08/23/19 [History] Propylene Glycol/Peg 400 [Systane 0.3-0.4% Eye Drops] 1 drop EYEBOTH BID [History] amLODIPine [Norvasc] 10 mg PO DAILY 08/23/19 [History] hydroCHLOROthiazide [Hydrochlorothiazide] 25 mg PO DAILY 08/23/19 [History] Furosemide [Lasix] 20 mg PO DAILY 10/03/19 [History] Warfarin Sodium [Jantoven] 5 mg PO DAILY 10/03/19 [History] Past Medical History - Past Health History Medical/Surgical History: Denies Medical/Surgical History HEENT History: Reports: Impaired Vision Other HEENT History: wears glasses, is legally blind Cardiovascular History: Reports: Afib, Blood Clots/VTE/DVT, Heart Failure, High Cholesterol, Hypertension, Pacemaker Other Cardiovascular History: pauses in heart beat Respiratory History: Reports: COPD, PE, SOB, Other (See Below) Other Respiratory History: recent intubation Gastrointestinal History: Reports: GERD Genitourinary History: Reports: Urinary Incontinence Other Genitourinary History: wears protection [employer]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: Musculoskeletal History: Reports: Back Pain, Chronic, Osteoarthritis, Other ( See Below) Other Musculoskeletal History: degenerative disc disease Neurological History: Reports: CVA, Headaches, Chronic, Other (See Below) Other Neuro History: cva in 2010 Psychiatric History: Reports: None Endocrine/Metabolic History: Reports: Diabetes, Type II Hematologic History: Reports: None Immunologic History: Reports: None Oncologic (Cancer) History: Reports: None Dermatologic History: Reports: None - Infectious Disease History Infectious Disease History: Reports: Chicken Pox, Measles - Past Surgical History Head Surgeries/Procedures: Reports: None HEENT Surgical History: Reports: None Cardiovascular Surgical History: Reports: Pacer Respiratory Surgical History: Reports: None GI Surgical History: Reports: Other (See Below) Other GI Surgeries/Procedures: Bowel resection Female Surgical History: Reports: Other (See Below) Other Female Surgeries/Procedures: Bladder surgery Musculoskeletal Surgical History: Reports: None Social & Family History - Family History Family Medical History: Noncontributory - Caffeine Use Caffeine Use: Reports: Coffee - Living Situation & Occupation Living situation: Reports: , Alone Occupation: Retired H&P Review of Systems - Review of Systems: Review Of Systems: See Below General: Denies: Fever Pulmonary: Denies: Shortness of Breath Cardiovascular: Denies: Chest Pain, Edema Gastrointestinal: Reports: Black Stool, Bloody Stool. Denies: Abdominal Pain Genitourinary: Denies: Frequency Psychiatric: Denies: Confusion Exam - Exam Exam: See Below - Exam Quality Assessment: No: Supplemental Oxygen General: Alert, Oriented Neck: Supple Lungs: Clear to Auscultation, Normal Respiratory Effort Cardiovascular: Regular Rate, Regular Rhythm GI/Abdominal Exam: Normal Bowel Sounds, Soft, Non-Tender Extremities: No Pedal Edema - Problem List (1) GI bleed SNOMED Code(s): 18635737 ICD Code: K92.2 - GASTROINTESTINAL HEMORRHAGE, UNSPECIFIED Status: Acute Current Visit: Yes (2) Anticoagulated on Coumadin SNOMED Code(s): 61191055 ICD Code: Z79.01 - [employer] (CURRENT) USE OF ANTICOAGULANTS Status: Acute Current Visit: No Problem List Initiated/Reviewed/Updated: Yes Assessment/Plan Comment:: 89-year-old with a history of CHF, diabetes, hypertension, long-term use of steroids with prednisone for COPD The patient has been on anticoagulation for recurrent PE. Laboratory studies from [facility] were reviewed White blood second 5.9, hemoglobin 7.3, platelet count 284 Potassium 4.0, creatinine 1.2, BMI 46 INR above 5, TSH 1.2 The patient presented with dark black stools. She has been taking oral iron supplement She was seen by Dr. Kate medina. INR was 6.5. Vitamin K 5 mg was given in the clinic The patient was sent over for hospital admission acute GI bleed Likely lower GI Reverse INR, hold anticoagulation We'll consult GI when available or transferred to [facility] urgently if needed Increase Protonix to twice a day Acute blood loss anemia secondary to acute GI bleed History of iron, folate, B12 deficiency We'll give the patient units of PRBC transfusion Please benefits and alternatives were discussed with the patient. Continue iron, B12, folate supplement Recheck hemoglobin periodically Anticoagulation for pulmonary embolism INR supratherapeutic vitamin K 5 mg by mouth was given in the clinic Hold Coumadin now Follow INR daily History of COPD No apparent acute exacerbation Use DuoNeb as needed Congestive heart failure, chronic, with preserved ejection fraction, no acute exacerbation Continue diuretics History of prior stroke stable for now hold aspirin Resume if no significant further bleeding Diabetes hold metformin follow blood sugars use supplemental insulin as needed Hypertension continue Norvasc Continue metoprolol, clonidine cont hctz Monitorand adjust as needed dvt prophylaxis with scd-s
[2019-10-28] MEDS ORDERED: Albuterol/Ipratropium 3.0-0.5 MG/3 ML Neb Soln INH PRN (16:56)
[2019-10-28] MEDS ORDERED: Ondansetron 4 MG/2 ML SDV IVPUSH PRN (17:02)
[2019-10-28] MEDS ORDERED: Acetaminophen 325 MG Tab PO PRN (17:02)
[2019-10-28] MEDS ORDERED: NS + KCl 20mEq/L 1,000 ML IV SCH (19:45)
[2019-10-28] MEDS: Insulin Lispro 100 Units/ML 3 ML Vial SUBCUT SCH (22:01)
[2019-10-28] MEDS: cloNIDine 0.1 MG Tab PO SCH (22:02)
[2019-10-28] MEDS: Pantoprazole 40 MG Tab.CR PO SCH (22:02)
[2019-10-28] MEDS: Temazepam 15 MG Cap PO PRN (22:57)
[2019-10-29 06:51] LABS: ANION GAP 11.6
[2019-10-29] MEDS: Insulin Lispro 100 Units/ML 3 ML Vial SUBCUT SCH ×4 (08:57→20:50)
[2019-10-29] MEDS: Folic Acid 1 MG Tab PO SCH (08:58)
[2019-10-29] MEDS: Hydrochlorothiazide 25 MG Tab PO SCH (08:58)
[2019-10-29] MEDS: Furosemide 20 MG Tab PO SCH (08:59)
[2019-10-29] MEDS: amLODIPine 5 MG Tab PO SCH (09:00)
[2019-10-29] MEDS ORDERED: MAGNESIUM OXIDE 100 MG PO SCH (09:00)
[2019-10-29] MEDS: Pantoprazole 40 MG Tab.CR PO SCH ×2 (09:02→20:50)
[2019-10-29] MEDS: Metoprolol Succinate 50 MG Tab.ER PO SCH (09:02)
[2019-10-29] MEDS: Sodium Chloride 0.9% 10 ML Syringe FLUSH PRN ×2 (09:03→12:42)
[2019-10-29] MEDS: cloNIDine 0.1 MG Tab PO SCH ×2 (09:03→20:50)
--- NOTE | 2019-10-29 12:00 | PCM.PN ---
- General Info Date of Service: 10/29/19 Subjective Update: had difficulty finding matching blood received 1 u prbc transfusion last night no sob, no cp no fluid overload - Review of Systems General: Reports: Weakness. Denies: Fever Pulmonary: Denies: Shortness of Breath Cardiovascular: Reports: Edema. Denies: Chest Pain - Patient Data Vitals - Most Recent: Last Vital Signs Temp 36.8 C 10/29/19 11:30 Pulse 66 10/29/19 11:30 Resp 10/29/19 11:30 BP 150/63 H 10/29/19 11:30 Pulse Ox 96 10/29/19 11:30 Weight - Most Recent: 69.655 kg I&O - Last 24 Hours: Intake & Output 10/28/19 10/29/19 10/29/19 22:59 06:59 14:59 Intake Total 570 360 600 Balance 570 360 600 Lab Results Last 24 Hours: Laboratory Results - last 24 hr 10/28/19 10/28/19 10/29/19 Range/Units 17:22 21:56 06:00 WBC 5.7 (5.0-10.0) 10^3/uL RBC 3.05 L (4.2-5.4) 10^6/uL Hgb 7.4 L D (12.0-16.0) g/dL Hct 23.2 L (37.0-47.0) % MCV 76.1 L D (80-100) fL MCH 24.3 L (27.0-34.0) pg MCHC 31.9 L (33.0-35.0) g/dL Plt Count 268 D (150-450) 10^3/uL Neut % (Auto) 41.7 L (42.2-75.2) % Lymph % (Auto) 37.1 (20.5-50.1) % [place] % (Auto) 9.9 H (2-8) % Eos % (Auto) 10.2 H (1.0-3.0) % Baso % (Auto) 1.1 H (0.0-1.0) % Sodium (135-145) mmol/L Potassium (3.6-5.0) mmol/L Chloride (101-111) mmol/L Carbon Dioxide (21.0-31.0) mmol/L Anion Gap BUN (7-18) mg/dL Creatinine (0.6-1.3) mg/dL Est Cr Clr Drug Dosing mL/min Estimated GFR (MDRD) Glucose (74-105) mg/dL POC Glucose 171 H (83-110) mg/dl Calcium (8.4-10.2) mg/dl Blood Type B NEGATIVE Gel Antibody Screen Negative Crossmatch See Detail 10/29/19 10/29/19 10/29/19 Range/Units 06:00 07:50 11:44 WBC (5.0-10.0) 10^3/uL RBC (4.2-5.4) 10^6/uL Hgb (12.0-16.0) g/dL Hct (37.0-47.0) % MCV (80-100) fL MCH (27.0-34.0) pg MCHC (33.0-35.0) g/dL Plt Count (150-450) 10^3/uL Neut % (Auto) (42.2-75.2) % Lymph % (Auto) (20.5-50.1) % [place] % (Auto) (2-8) % Eos % (Auto) (1.0-3.0) % Baso % (Auto) (0.0-1.0) % Sodium 139 (135-145) mmol/L Potassium 3.6 (3.6-5.0) mmol/L Chloride 100 L (101-111) mmol/L Carbon Dioxide 31.0 (21.0-31.0) mmol/L Anion Gap 11.6 BUN 40 H (7-18) mg/dL Creatinine 0.9 (0.6-1.3) mg/dL Est Cr Clr Drug Dosing 38.88 mL/min Estimated GFR (MDRD) 59 Glucose 142 H (74-105) mg/dL POC Glucose 150 H 188 H (83-110) mg/dl Calcium 9.3 (8.4-10.2) mg/dl Blood Type Gel Antibody Screen Crossmatch Med Orders - Current: Current Medications Acetaminophen (Tylenol) 650 mg PO Q4H PRN PRN Reason: Pain (Mild 1-3)/fever Albuterol/Ipratropium (Duoneb 3.0-0.5 Mg/3 Ml) 3 ml INH Q4H PRN PRN Reason: Wheezing Amlodipine Besylate (Norvasc) 10 mg PO DAILY [facility] Last Admin: 10/29/19 09:00 Dose: 10 mg Clonidine HCl (Catapres) 0.2 mg PO BID [facility] Last Admin: 10/29/19 09:03 Dose: 0.2 mg Ferrous Sulfate (Ferrous Sulfate) [facility] Folic Acid (Folic Acid) 1 mg PO DAILY [facility] Last Admin: 10/29/19 08:58 Dose: 1 mg Furosemide (Lasix) 20 mg PO DAILY [facility] Last Admin: 10/29/19 08:59 Dose: 20 mg Hydrochlorothiazide (Hydrochlorothiazide) 25 mg PO DAILY [facility] Last Admin: 10/29/19 08:58 Dose: 25 mg Insulin Human Lispro (Humalog) 0 unit SUBCUT ACBED [facility]; Protocol Last Admin: 10/29/19 08:57 Dose: 1 unit Magnesium Oxide (Magnesium Oxide) 250 mg PO DAILY [facility] Stop: 10/30/19 09:01 Last Admin: 10/29/19 08:59 Dose: 250 mg Metoprolol Succinate (Toprol Xl) 100 mg PO DAILY [facility] Last Admin: 10/29/19 09:02 Dose: 100 mg Ondansetron HCl (Zofran) 4 mg IVPUSH Q4H PRN PRN Reason: Nausea/Vomiting Pantoprazole Sodium (Protonix) 40 mg PO BID [facility] Last Admin: 10/29/19 09:02 Dose: 40 mg Sodium Chloride (Saline Flush) 10 ml FLUSH ASDIRECTED PRN PRN Reason: Keep Vein Open Last Admin: 10/29/19 09:03 Dose: 10 ml Temazepam (Restoril) 15 mg PO BEDTIME PRN PRN Reason: Sleep Last Admin: 10/28/19 22:57 Dose: 15 mg Discontinued Medications Potassium Chloride/Sodium Chloride (Normal Saline With 20 Meq Kcl) 1,000 mls @ 75 mls/hr IV ASDIRECTED [facility] Non-Formulary Medication (Magnesium Oxide [Magnesium]) 100 mg PO DAILY [facility] - Exam Quality Assessment: No: Supplemental Oxygen General: Alert, Oriented Neck: Supple Lungs: Clear to Auscultation, Normal Respiratory Effort GI/Abdominal Exam: Normal Bowel Sounds, Soft, Non-Tender Extremities: Pedal Edema (trace b/l ) Neurological: No New Focal Deficit Psy/Mental Status: Alert, Normal Affect, Normal Mood Sepsis Event Note - Evaluation Sepsis Screening Result: No Definite Risk - Focused Exam Vital Signs: Vital Signs Temp Temp Pulse Pulse Resp BP BP 10/29/19 11:30 36.8 C 66 20 150/63 H 10/29/19 09:03 154/54 H 10/29/19 09:02 65 154/54 H 10/29/19 09:00 154/54 H 10/29/19 07:15 36.3 C 65 20 10/29/19 04:00 36.4 C 64 18 10/29/19 02:15 36.3 C 62 18 10/29/19 01:43 36.2 C 66 16 10/29/19 00:43 36.4 C 67 16 BP Pulse Ox 10/29/19 11:30 96 10/29/19 09:03 10/29/19 09:02 10/29/19 09:00 10/29/19 07:15 154/54 H 97 10/29/19 04:00 158/56 H 99 10/29/19 02:15 132/51 L 98 10/29/19 01:43 147/57 H 97 10/29/19 00:43 143/52 H 99 Date Exam was Performed: 10/29/19 Time Exam was Performed: 11:57 - Problem List & Annotations (1) GI bleed SNOMED Code(s): 79277937 Code(s): K92.2 - GASTROINTESTINAL HEMORRHAGE, UNSPECIFIED Status: Acute Current Visit: Yes (2) Anticoagulated on Coumadin SNOMED Code(s): 97413847 Code(s): Z79.01 - [employer] (CURRENT) USE OF ANTICOAGULANTS Status: Acute Current Visit: No - Problem List Review Problem List Initiated/Reviewed/Updated: Yes - My Orders Last 24 Hours: My Active Orders 10/28/19 16:54 Glucose [Blood Glucose Check, Bedside] [RC] QIDACANDBED 10/28/19 16:56 Albuterol/Ipratropium [DuoNeb 3.0-0.5 MG/3 ML] 3 ml INH Q4H PRN 10/28/19 17:02 Patient Status [ADT] Routine Oxygen Therapy [RC] PRN Up With Assistance [RC] .PRN VTE/DVT Education [RC] PER UNIT ROUTINE Vital Signs [RC] 00,04,08,12,16,20 Acetaminophen [Tylenol] 650 mg PO Q4H PRN Ondansetron [Zofran] 4 mg IVPUSH Q4H PRN Sodium Chloride 0.9% [Saline Flush] 10 ml FLUSH ASDIRECTED PRN Temazepam [Restoril] 15 mg PO BEDTIME PRN Peripheral IV Insertion Adult [OM.PC] Routine Saline Lock Insert [OM.PC] Routine 10/28/19 17:03 Antiembolic Hose [OM.PC] Per Unit Routine 10/28/19 17:04 Antiembolic Devices [RC] PER UNIT ROUTINE Peripheral IV Care [RC] 10/28/19 17:24 Admission Status [Patient Status] [ADT] Routine 10/28/19 19:20 Code Status [Resuscitation Status] Routine 10/28/19 21:00 Insulin Lispro [HumaLOG] See Protocol SUBCUT ACBED Pantoprazole [ProTONIX] 40 mg PO BID cloNIDine [Catapres] 0.2 mg PO BID 10/28/19 Dinner Full Liquid Diet [DIET] 10/29/19 09:00 Folic Acid 1 mg PO DAILY Furosemide [Lasix] 20 mg PO DAILY Magnesium Oxide 250 mg PO DAILY Metoprolol Succinate [Toprol XL] 100 mg PO DAILY amLODIPine [Norvasc] 10 mg PO DAILY hydroCHLOROthiazide 25 mg PO DAILY 10/29/19 11:54 RED BLOOD CELLS LP [BBK] Routine Transfuse RBC [Transfuse Red Blood Cells] [COMM] Routine Transfuse Red Blood Cells [COMM] Routine 10/29/19 18:00 Ferrous Sulfate 325 mg PO WITHDINNER 10/30/19 05:11 INR,PT,PROTHROMBIN TIME [COAG] AM 10/31/19 05:11 INR,PT,PROTHROMBIN TIME [COAG] AM 11/01/19 05:11 INR,PT,PROTHROMBIN TIME [COAG] AM 11/02/19 05:11 INR,PT,PROTHROMBIN TIME [COAG] AM 11/03/19 05:11 INR,PT,PROTHROMBIN TIME [COAG] AM - Plan Plan:: 89-year-old with a history of CHF, diabetes, hypertension, long-term use of steroids with prednisone for COPD The patient has been on anticoagulation for recurrent PE. presented with black stool, anemia acute GI bleed Likely lower GI Reversed INR with vit k, hold anticoagulation We'll consult GI when available or transferred to [facility] urgently if needed Increased Protonix to twice a day Acute blood loss anemia secondary to acute GI bleed History of iron, folate, B12 deficiency received 1 u prbc on 10/28 We'll give the patient another unit of PRBC transfusion Continue iron, B12, folate supplement Recheck hemoglobin in am Anticoagulation for pulmonary embolism INR supratherapeutic vitamin K 5 mg by mouth was given in the clinic Hold Coumadin now Follow INR daily History of COPD No apparent acute exacerbation Use DuoNeb as needed Congestive heart failure, chronic, with preserved ejection fraction, no acute exacerbation Continue diuretics History of prior stroke stable for now hold aspirin Resume if no significant further bleeding Diabetes hold metformin follow blood sugars use supplemental insulin as needed Hypertension continue Norvasc Continue metoprolol, clonidine cont hctz Monitorand adjust as needed dvt prophylaxis with scd-s
[2019-10-29] MEDS: Ferrous Sulfate 325 MG Tab PO SCH (18:02)
[2019-10-29] MEDS: Temazepam 15 MG Cap PO PRN (21:00)
[2019-10-30 06:55] LABS: ANION GAP 12.6
[2019-10-30] MEDS: Pantoprazole 40 MG Tab.CR PO SCH ×2 (07:59→21:33)
[2019-10-30] MEDS: Metoprolol Succinate 50 MG Tab.ER PO SCH (07:59)
[2019-10-30] MEDS: Folic Acid 1 MG Tab PO SCH (08:00)
[2019-10-30] MEDS: Hydrochlorothiazide 25 MG Tab PO SCH (08:00)
[2019-10-30] MEDS: Furosemide 20 MG Tab PO SCH (08:00)
[2019-10-30] MEDS: cloNIDine 0.1 MG Tab PO SCH ×2 (08:00→21:33)
[2019-10-30] MEDS: amLODIPine 5 MG Tab PO SCH (08:01)
[2019-10-30] MEDS: Insulin Lispro 100 Units/ML 3 ML Vial SUBCUT SCH ×4 (08:42→21:33)
--- NOTE | 2019-10-30 11:31 | PCM.PN ---
- General Info Date of Service: 10/30/19 Admission Dx/Problem (Free Text): GI bleed Subjective Update: had difficulty finding matching blood received a total of 2 u prbc transfusions no sob, no cp no fluid overload still has loose black stool Functional Status: Reports: Pain Controlled, Tolerating Diet - Review of Systems Pulmonary: Denies: Shortness of Breath Cardiovascular: Denies: Chest Pain, Edema Genitourinary: Denies: Dysuria - Patient Data Vitals - Most Recent: Last Vital Signs Temp 36.6 C 10/30/19 07:52 Pulse 62 10/30/19 07:59 Resp 18 10/30/19 07:52 BP 179/61 H 10/30/19 08:01 Pulse Ox 97 10/30/19 07:52 Weight - Most Recent: 68.719 kg I&O - Last 24 Hours: Intake & Output 10/29/19 10/30/19 10/30/19 22:59 06:59 14:59 Intake Total 1600 Balance 1600 Lab Results Last 24 Hours: Laboratory Results - last 24 hr 10/28/19 10/29/19 10/29/19 Range/Units 17:22 11:44 17:07 WBC (5.0-10.0) 10^3/uL RBC (4.2-5.4) 10^6/uL Hgb (12.0-16.0) g/dL Hct (37.0-47.0) % MCV (80-100) fL MCH (27.0-34.0) pg MCHC (33.0-35.0) g/dL Plt Count (150-450) 10^3/uL Neut % (Auto) (42.2-75.2) % Lymph % (Auto) (20.5-50.1) % [place] % (Auto) (2-8) % Eos % (Auto) (1.0-3.0) % Baso % (Auto) (0.0-1.0) % PT (9.0-12.0) SEC INR (0.9-1.2) Sodium (135-145) mmol/L Potassium (3.6-5.0) mmol/L Chloride (101-111) mmol/L Carbon Dioxide (21.0-31.0) mmol/L Anion Gap BUN (7-18) mg/dL Creatinine (0.6-1.3) mg/dL Est Cr Clr Drug Dosing mL/min Estimated GFR (MDRD) Glucose (74-105) mg/dL POC Glucose 188 H 127 H (83-110) mg/dl Calcium (8.4-10.2) mg/dl Blood Type B NEGATIVE Gel Antibody Screen Negative Crossmatch See Detail 10/29/19 10/30/19 10/30/19 Range/Units 20:35 05:10 05:10 WBC 5.9 (5.0-10.0) 10^3/uL RBC 3.35 L (4.2-5.4) 10^6/uL Hgb 8.7 L (12.0-16.0) g/dL Hct 26.4 L (37.0-47.0) % MCV 78.8 L (80-100) fL MCH 26.0 L (27.0-34.0) pg MCHC 33.0 (33.0-35.0) g/dL Plt Count 265 (150-450) 10^3/uL Neut % (Auto) 48.1 (42.2-75.2) % Lymph % (Auto) 26.7 (20.5-50.1) % [place] % (Auto) 10.5 H (2-8) % Eos % (Auto) 13.7 H (1.0-3.0) % Baso % (Auto) 1.0 (0.0-1.0) % PT 11.0 D (9.0-12.0) SEC INR 1.1 (0.9-1.2) Sodium (135-145) mmol/L Potassium (3.6-5.0) mmol/L Chloride (101-111) mmol/L Carbon Dioxide (21.0-31.0) mmol/L Anion Gap BUN (7-18) mg/dL Creatinine (0.6-1.3) mg/dL Est Cr Clr Drug Dosing mL/min Estimated GFR (MDRD) Glucose (74-105) mg/dL POC Glucose 169 H (83-110) mg/dl Calcium (8.4-10.2) mg/dl Blood Type Gel Antibody Screen Crossmatch 10/30/19 10/30/19 Range/Units 05:10 07:47 WBC (5.0-10.0) 10^3/uL RBC (4.2-5.4) 10^6/uL Hgb (12.0-16.0) g/dL Hct (37.0-47.0) % MCV (80-100) fL MCH (27.0-34.0) pg MCHC (33.0-35.0) g/dL Plt Count (150-450) 10^3/uL Neut % (Auto) (42.2-75.2) % Lymph % (Auto) (20.5-50.1) % [place] % (Auto) (2-8) % Eos % (Auto) (1.0-3.0) % Baso % (Auto) (0.0-1.0) % PT (9.0-12.0) SEC INR (0.9-1.2) Sodium 139 (135-145) mmol/L Potassium 3.6 (3.6-5.0) mmol/L Chloride 100 L (101-111) mmol/L Carbon Dioxide 30.0 (21.0-31.0) mmol/L Anion Gap 12.6 BUN 28 H (7-18) mg/dL Creatinine 0.9 (0.6-1.3) mg/dL Est Cr Clr Drug Dosing 38.88 mL/min Estimated GFR (MDRD) 59 Glucose 141 H (74-105) mg/dL POC Glucose 151 H (83-110) mg/dl Calcium 9.5 (8.4-10.2) mg/dl Blood Type Gel Antibody Screen Crossmatch Med Orders - Current: Current Medications Acetaminophen (Tylenol) 650 mg PO Q4H PRN PRN Reason: Pain (Mild 1-3)/fever Albuterol/Ipratropium (Duoneb 3.0-0.5 Mg/3 Ml) 3 ml INH Q4H PRN PRN Reason: Wheezing Amlodipine Besylate (Norvasc) 10 mg PO DAILY [facility] Last Admin: 10/30/19 08:01 Dose: 10 mg Clonidine HCl (Catapres) 0.2 mg PO BID [facility] Last Admin: 10/30/19 08:00 Dose: 0.2 mg Ferrous Sulfate (Ferrous Sulfate) 325 mg PO WITHDINNER [facility] Last Admin: 10/29/19 18:02 Dose: 325 mg Folic Acid (Folic Acid) 1 mg PO DAILY [facility] Last Admin: 10/30/19 08:00 Dose: 1 mg Furosemide (Lasix) 20 mg PO DAILY [facility] Last Admin: 10/30/19 08:00 Dose: 20 mg Hydrochlorothiazide (Hydrochlorothiazide) 25 mg PO DAILY [facility] Last Admin: 10/30/19 08:00 Dose: 25 mg Insulin Human Lispro (Humalog) 0 unit SUBCUT ACBED [facility]; Protocol Last Admin: 10/30/19 08:42 Dose: 1 unit Metoprolol Succinate (Toprol Xl) 100 mg PO DAILY [facility] Last Admin: 10/30/19 07:59 Dose: 100 mg Ondansetron HCl (Zofran) 4 mg IVPUSH Q4H PRN PRN Reason: Nausea/Vomiting Pantoprazole Sodium (Protonix) 40 mg PO BID [facility] Last Admin: 10/30/19 07:59 Dose: 40 mg Sodium Chloride (Saline Flush) 10 ml FLUSH ASDIRECTED PRN PRN Reason: Keep Vein Open Last Admin: 10/29/19 12:42 Dose: 10 ml Temazepam (Restoril) 15 mg PO BEDTIME PRN PRN Reason: Sleep Last Admin: 10/29/19 21:00 Dose: 15 mg Discontinued Medications Potassium Chloride/Sodium Chloride (Normal Saline With 20 Meq Kcl) 1,000 mls @ 75 mls/hr IV ASDIRECTED [facility] [place] Magnesium Oxide (Magnesium Oxide) 250 mg PO DAILY [facility] Stop: 10/30/19 09:01 Last Admin: 10/30/19 08:01 Dose: 250 mg Non-Formulary Medication (Magnesium Oxide [Magnesium]) 100 mg PO DAILY [facility] - Exam Quality Assessment: No: Supplemental Oxygen General: Alert, Oriented Neck: Supple Lungs: Clear to Auscultation, Normal Respiratory Effort Cardiovascular: Regular Rate, Regular Rhythm GI/Abdominal Exam: Normal Bowel Sounds, Soft, Non-Tender Extremities: No Pedal Edema Sepsis Event Note - Evaluation Sepsis Screening Result: No Definite Risk - Focused Exam Vital Signs: Vital Signs Temp Pulse Pulse Resp BP BP BP 10/30/19 08:01 179/61 H 10/30/19 08:00 179/61 H 10/30/19 07:59 62 179/61 H 10/30/19 07:52 36.6 C 62 18 179/61 H 10/30/19 04:00 36.4 C 65 18 143/47 H Pulse Ox 10/30/19 08:01 10/30/19 08:00 10/30/19 07:59 10/30/19 07:52 97 10/30/19 04:00 95 Date Exam was Performed: 10/30/19 Time Exam was Performed: 11:34 - Problem List & Annotations (1) GI bleed SNOMED Code(s): 65396943 Code(s): K92.2 - GASTROINTESTINAL HEMORRHAGE, UNSPECIFIED Status: Acute Current Visit: Yes (2) Anticoagulated on Coumadin SNOMED Code(s): 83355611 Code(s): Z79.01 - RETIREMENT (CURRENT) USE OF ANTICOAGULANTS Status: Acute Current Visit: No - Problem List Review Problem List Initiated/Reviewed/Updated: Yes - My Orders Last 24 Hours: My Active Orders 10/29/19 11:54 Transfuse RBC [Transfuse Red Blood Cells] [COMM] Routine Transfuse Red Blood Cells [COMM] Routine 10/29/19 18:00 Ferrous Sulfate 325 mg PO WITHDINNER 10/30/19 11:16 Consult to Physician [CONS] Routine 10/30/19 11:18 Notify Provider Consults [RC] ASDIRECTED 10/31/19 05:11 INR,PT,PROTHROMBIN TIME [COAG] AM 10/31/19 05:15 BASIC METABOLIC PANEL,BMP [CHEM] AM CBC WITH AUTO DIFF [HEME] AM 11/01/19 05:11 INR,PT,PROTHROMBIN TIME [COAG] AM 11/02/19 05:11 INR,PT,PROTHROMBIN TIME [COAG] AM 11/03/19 05:11 INR,PT,PROTHROMBIN TIME [COAG] AM - Plan Plan:: 89-year-old with a history of CHF, diabetes, hypertension, long-term use of steroids with prednisone for COPD The patient has been on anticoagulation for recurrent PE. presented with black stool, anemia acute GI bleed Likely lower GI Reversed INR with vit k, hold anticoagulation We'll consult GI on Thursday or transferred to [facility] urgently if needed Increased Protonix to twice a day Acute blood loss anemia secondary to acute GI bleed History of iron, folate, B12 deficiency received 1 u prbc on 10/28 and received 1 u prbc on 10/29 Continue iron, B12, folate supplement Recheck hemoglobin in am Anticoagulation for pulmonary embolism INR was supratherapeutic vitamin K 5 mg by mouth was given in the clinic now INR is normalized Hold Coumadin now Follow INR daily History of COPD No apparent acute exacerbation Use DuoNeb as needed Congestive heart failure, chronic, with preserved ejection fraction, no acute exacerbation Continue diuretics History of prior stroke stable for now hold aspirin Resume if no significant further bleeding Diabetes hold metformin follow blood sugars use supplemental insulin as needed Hypertension continue Norvasc Continue metoprolol, clonidine cont hctz Monitorand adjust as needed dvt prophylaxis with scd-s
[2019-10-30] MEDS ORDERED: Polyethylene Glycol/Electrolytes 4,000 ML Bottle PO ONE (18:00)
[2019-10-30] MEDS: Ferrous Sulfate 325 MG Tab PO SCH (18:04)
[2019-10-31] MEDS ORDERED: Benzocaine 20% Topical Spray UD MUCMEM ONE ×2 (06:00→09:07)
[2019-10-31] MEDS ORDERED: Midazolam 1 MG/ML 2 ML SDV ONE (06:00)
[2019-10-31] MEDS ORDERED: fentaNYL 100 MCG/2 ML SDV ONE (06:00)
[2019-10-31 07:02] LABS: ANION GAP 11.3; CHLORIDE,CL 102 mmol/L (101-111); SODIUM,NA 139 mmol/L (135-145)
[2019-10-31] MEDS: Insulin Lispro 100 Units/ML 3 ML Vial SUBCUT SCH ×2 (07:55→12:06)
[2019-10-31] MEDS ORDERED: Sodium Chloride 0.9% 1,000 ML IV SCH (08:30)
[2019-10-31] MEDS ORDERED: fentaNYL 100 MCG/2 ML SDV IV ONE ×2 (09:03→15:39)
[2019-10-31] MEDS ORDERED: Midazolam 1 MG/ML 2 ML SDV IV ONE ×3 (09:05→15:39)
[2019-10-31] MEDS: Furosemide 20 MG Tab PO SCH (10:07)
[2019-10-31] MEDS: Hydrochlorothiazide 25 MG Tab PO SCH (10:08)
[2019-10-31] MEDS: amLODIPine 5 MG Tab PO SCH (10:08)
[2019-10-31] MEDS: Metoprolol Succinate 50 MG Tab.ER PO SCH (10:08)
[2019-10-31] MEDS: Pantoprazole 40 MG Tab.CR PO SCH (10:09)
[2019-10-31] MEDS: Folic Acid 1 MG Tab PO SCH (10:09)
[2019-10-31] MEDS: cloNIDine 0.1 MG Tab PO SCH (10:09)
--- NOTE | 2019-10-31 10:42 | OR ---
DATE: 10/31/2019 PREOPERATIVE DIAGNOSIS: Anemia, possible gastrointestinal bleed. POSTOPERATIVE DIAGNOSIS: Anemia, possible gastrointestinal bleed. PROCEDURE: Total colonoscopy. ANESTHESIA: Conscious sedation with IV Versed and fentanyl. SPECIMEN: None. OPERATIVE FINDINGS: Normal colonoscopy. RECOMMENDATIONS: Followup as needed. Her anemia does not seem to be due to gastrointestinal bleed. INDICATION FOR PROCEDURE: This 89-year-old female has a hemoglobin of 7, was admitted to the hospital. She has black tarry stools. PROCEDURE IN DETAIL: After adequate preparation, a colonoscope was inserted into the rectum. This was easily passed all the way to the cecum. Confirmation of the cecum was made by visualization of the appendiceal opening, the ileocecal valve and the light shining through the right lower quadrant. The bowel prep was very good. On withdrawal of the scope, a good examination of the colon was accomplished. The patient has no masses, polyps, bleeding sites, colitis, or diverticula. Anal and rectal examinations are also normal. Air was suctioned from the colon and the scope removed. [facility] /[id number]
--- NOTE | 2019-10-31 10:49 | OR ---
DATE: 10/31/2019 PREOPERATIVE DIAGNOSIS: Anemia, possible gastrointestinal bleed. POSTOPERATIVE DIAGNOSIS: Anemia, possible gastrointestinal bleed. PROCEDURE: EGD. ANESTHESIA: Conscious sedation with IV Versed and fentanyl. SPECIMEN: None. OPERATIVE FINDINGS: Moderate size 3 to 4 cm hiatal hernia. No evidence of bleeding, tumors, or polyps. No ulcers noted. INDICATION FOR PROCEDURE: This 89-year-old female had been admitted to the hospital with black tarry stools and a hemoglobin of 7. PROCEDURE IN DETAIL: After adequate preparation, gastroscope was inserted into the esophagus. This was passed down to the distal esophagus. She shows no evidence of esophagitis or ulcerations in the distal esophagus. She has a moderate-size hiatal hernia. The scope was advanced into the stomach. Both forward and retroflexed views were done and are normal. The scope was advanced to the pylorus and the first and second parts of the duodenum were also normal. There was no evidence of bleeding sites or ulcers. Air was suctioned from the stomach, and the scope removed. [facility] /[id number]
[2019-10-31] MEDS ORDERED: Potassium Chloride 10 MEQ Tab.ER PO ONE (11:09)
--- NOTE | 2019-10-31 11:34 | PCM.DCSUM1 ---
Discharge Summary - Hospital Course Free Text/Narrative:: 89-year-old with a history of CHF, diabetes, hypertension, long-term use of steroids with prednisone for COPD The patient has been on anticoagulation for recurrent PE. presented with black stool, anemia acute GI bleed appears resolved Reversed INR with vit k, treated with Protonix to twice a day underwent EGD and colonoscopy on 10/31 - no acute bleeding will cont protonix daily Acute blood loss anemia secondary to acute GI bleed History of iron, folate, B12 deficiency received 1 u prbc on 10/28 and received 1 u prbc on 10/29 Continue iron, B12, folate supplement Recheck hemoglobin periodically Anticoagulation for pulmonary embolism INR was supratherapeutic vitamin K 5 mg by mouth was given in the clinic INR is normalized since no active bleeding was found will resume coumadin at lower dose History of COPD No apparent acute exacerbation Use DuoNeb as needed Congestive heart failure, chronic, with preserved ejection fraction, no acute exacerbation Continue diuretics History of prior stroke stable resume aspirin Diabetes resume metformin Hypertension continue Norvasc Continue metoprolol, clonidine cont hctz Diagnosis: Stroke: No - Discharge Data Discharge Date: 10/31/19 Discharge Disposition: Home, Self-Care 01 Condition: Good - Referral to Home Health Primary Care Physician: Umberto Weeks MD - Discharge Diagnosis/Problem(s) (1) GI bleed SNOMED Code(s): 38373736 ICD Code: K92.2 - GASTROINTESTINAL HEMORRHAGE, UNSPECIFIED Status: Acute Current Visit: Yes (2) Anticoagulated on Coumadin SNOMED Code(s): 88413022 ICD Code: Z79.01 - [employer]ANDST[employer] INS[employer]OR REPAIRER (CURRENT) USE OF ANTICOAGULANTS Status: Acute Current Visit: No - Patient Summary/Data Consults: Consultations 10/30/19 11:16 Consult to Physician [CONS] Routine - Patient Instructions Diet: Heart Healthy Diet Activity: As Tolerated - Discharge Plan *PRESCRIPTION DRUG MONITORING PROGRAM REVIEWED*: Not Applicable *COPY OF PRESCRIPTION DRUG MONITORING REPORT IN PATIENT ERWIN: Not Applicable Prescriptions/Med Rec: Warfarin [Coumadin] 2.5 mg PO DAILY #30 tab Home Medications: Home Meds Fenofibrate 160 mg PO .1800 04/20/15 [History] Metoprolol Succinate [Toprol XL] 100 mg PO DAILY 04/20/15 [History] metFORMIN [Glucophage] 1,000 mg PO BIDMEALS 04/20/15 [History] Pantoprazole [ProTONIX] 40 mg PO DAILY PRN 03/24/16 [History] cloNIDine [Catapres] 0.2 mg PO BID 02/10/17 [History] Cholecalciferol (Vitamin D3) [Vitamin D3] 2,000 unit PO BEDTIME 07/25/18 [ History] Calcium Citrate/Vitamin D3 [Citracal + D Maximum Caplet] 1 each PO .1800 [History] Albuterol [Proventil HFA] 2 puff INH Q4H PRN 08/23/19 [History] Albuterol/Ipratropium [DuoNeb 3.0-0.5 MG/3 ML] 3 ml INH Q4H PRN 08/23/19 [ History] Aspirin [Adult Low Dose Aspirin EC] 81 mg PO DAILY 08/23/19 [History] Ciclopirox/Ure/Camph/Menth/Euc [Ciclopirox 8% Treatment Kit] 34.6 ml TP DAILY [History] Ferrous Sulfate 325 mg PO .SUPPER 08/23/19 [History] Folic Acid 1 mg PO DAILY 08/23/19 [History] Magnesium Oxide [Magnesium] 100 mg PO DAILY 08/23/19 [History] [place]-3 Acid Ethyl Esters [Lovaza] 2 gm PO BID 08/23/19 [History] Propylene Glycol/Peg 400 [Systane 0.3-0.4% Eye Drops] 1 drop EYEBOTH BID [History] amLODIPine [Norvasc] 10 mg PO DAILY 08/23/19 [History] hydroCHLOROthiazide [Hydrochlorothiazide] 25 mg PO DAILY 08/23/19 [History] Furosemide [Lasix] 20 mg PO DAILY 10/03/19 [History] Warfarin [Coumadin] 2.5 mg PO DAILY #30 tab 10/31/19 [Rx] Referrals: Umberto Weeks MD [Primary Care Provider] - (on Thursday with cbc re: anemia , inr re: coumadin) - Discharge Summary/Plan Comment DC Time >30 min.: No - General Info Date of Service: 10/31/19 Functional Status: Reports: Tolerating Diet - Review of Systems General: Denies: Fever Pulmonary: Denies: Shortness of Breath Cardiovascular: Denies: Chest Pain Gastrointestinal: Denies: Abdominal Pain Neurological: Denies: Confusion - Patient Data Vitals - Most Recent: Last Vital Signs Temp 37.2 C 10/31/19 11:00 Pulse 71 10/31/19 11:00 Resp 16 10/31/19 11:00 BP 121/46 L 10/31/19 11:00 Pulse Ox 94 L 10/31/19 11:00 Weight - Most Recent: 68.492 kg I&O - Last 24 hours: Intake & Output 10/30/19 10/31/19 10/31/19 22:59 06:59 14:59 Intake Total 540 200 Balance 540 200 Lab Results - Last 24 hrs: Laboratory Results - last 24 hr 10/30/19 10/30/19 10/30/19 Range/Units 11:50 16:47 20:53 WBC (5.0-10.0) 10^3/uL RBC (4.2-5.4) 10^6/uL Hgb (12.0-16.0) g/dL Hct (37.0-47.0) % MCV (80-100) fL MCH (27.0-34.0) pg MCHC (33.0-35.0) g/dL Plt Count (150-450) 10^3/uL Neut % (Auto) (42.2-75.2) % Lymph % (Auto) (20.5-50.1) % [place] % (Auto) (2-8) % Eos % (Auto) (1.0-3.0) % Baso % (Auto) (0.0-1.0) % PT (9.0-12.0) SEC INR (0.9-1.2) Sodium (135-145) mmol/L Potassium (3.6-5.0) mmol/L Chloride (101-111) mmol/L Carbon Dioxide (21.0-31.0) mmol/L Anion Gap BUN (7-18) mg/dL Creatinine (0.6-1.3) mg/dL Est Cr Clr Drug Dosing mL/min Estimated GFR (MDRD) Glucose (74-105) mg/dL POC Glucose 173 H 102 123 H (83-110) mg/dl Calcium (8.4-10.2) mg/dl 10/31/19 10/31/19 10/31/19 Range/Units 06:15 06:15 06:15 WBC 6.0 (5.0-10.0) 10^3/uL RBC 3.41 L (4.2-5.4) 10^6/uL Hgb 8.8 L (12.0-16.0) g/dL Hct 27.0 L (37.0-47.0) % MCV 79.2 L (80-100) fL MCH 25.8 L (27.0-34.0) pg MCHC 32.6 L (33.0-35.0) g/dL Plt Count 307 (150-450) 10^3/uL Neut % (Auto) 51.1 (42.2-75.2) % Lymph % (Auto) 26.0 (20.5-50.1) % [place] % (Auto) 8.3 H (2-8) % Eos % (Auto) 13.9 H (1.0-3.0) % Baso % (Auto) 0.7 (0.0-1.0) % PT 10.8 (9.0-12.0) SEC INR 1.1 (0.9-1.2) Sodium 139 (135-145) mmol/L Potassium 3.3 L (3.6-5.0) mmol/L Chloride 102 (101-111) mmol/L Carbon Dioxide 29.0 (21.0-31.0) mmol/L Anion Gap 11.3 BUN 17 (7-18) mg/dL Creatinine 0.8 (0.6-1.3) mg/dL Est Cr Clr Drug Dosing 43.74 mL/min Estimated GFR (MDRD) > 60 Glucose 120 H (74-105) mg/dL POC Glucose (83-110) mg/dl Calcium 9.3 (8.4-10.2) mg/dl 10/31/19 Range/Units 07:48 WBC (5.0-10.0) 10^3/uL RBC (4.2-5.4) 10^6/uL Hgb (12.0-16.0) g/dL Hct (37.0-47.0) % MCV (80-100) fL MCH (27.0-34.0) pg MCHC (33.0-35.0) g/dL Plt Count (150-450) 10^3/uL Neut % (Auto) (42.2-75.2) % Lymph % (Auto) (20.5-50.1) % [place] % (Auto) (2-8) % Eos % (Auto) (1.0-3.0) % Baso % (Auto) (0.0-1.0) % PT (9.0-12.0) SEC INR (0.9-1.2) Sodium (135-145) mmol/L Potassium (3.6-5.0) mmol/L Chloride (101-111) mmol/L Carbon Dioxide (21.0-31.0) mmol/L Anion Gap BUN (7-18) mg/dL Creatinine (0.6-1.3) mg/dL Est Cr Clr Drug Dosing mL/min Estimated GFR (MDRD) Glucose (74-105) mg/dL POC Glucose 126 H (83-110) mg/dl Calcium (8.4-10.2) mg/dl Med Orders - Current: Current Medications Acetaminophen (Tylenol) 650 mg PO Q4H PRN PRN Reason: Pain (Mild 1-3)/fever Albuterol/Ipratropium (Duoneb 3.0-0.5 Mg/3 Ml) 3 ml INH Q4H PRN PRN Reason: Wheezing Amlodipine Besylate (Norvasc) 10 mg PO DAILY [facility] Last Admin: 10/31/19 10:08 Dose: 10 mg Clonidine HCl (Catapres) 0.2 mg PO BID [facility] Last Admin: 10/31/19 10:09 Dose: 0.2 mg Ferrous Sulfate (Ferrous Sulfate) 325 mg PO WITHDINNER [facility] Last Admin: 10/30/19 18:04 Dose: 325 mg Folic Acid (Folic Acid) 1 mg PO DAILY [facility] Last Admin: 10/31/19 10:09 Dose: 1 mg Furosemide (Lasix) 20 mg PO DAILY [facility] Last Admin: 10/31/19 10:07 Dose: 20 mg Hydrochlorothiazide (Hydrochlorothiazide) 25 mg PO DAILY [facility] Last Admin: 10/31/19 10:08 Dose: 25 mg Sodium Chloride (Normal Saline) 1,000 mls @ 75 mls/hr IV ASDIRECTED [facility] Last Admin: 10/31/19 08:55 Dose: 75 mls/hr Insulin Human Lispro (Humalog) 0 unit SUBCUT ACBED [facility]; Protocol Last Admin: 10/31/19 07:55 Dose: Not Given Metoprolol Succinate (Toprol Xl) 100 mg PO DAILY [facility] Last Admin: 10/31/19 10:08 Dose: 100 mg Ondansetron HCl (Zofran) 4 mg IVPUSH Q4H PRN PRN Reason: Nausea/Vomiting Pantoprazole Sodium (Protonix) 40 mg PO BID [facility] Last Admin: 10/31/19 10:09 Dose: 40 mg Sodium Chloride (Saline Flush) 10 ml FLUSH ASDIRECTED PRN PRN Reason: Keep Vein Open Last Admin: 10/29/19 12:42 Dose: 10 ml Temazepam (Restoril) 15 mg PO BEDTIME PRN PRN Reason: Sleep Last Admin: 10/29/19 21:00 Dose: 15 mg Discontinued Medications Benzocaine (Hurricaine One 20%) Confirm Administered Dose 1 each MUCMEM .STK- MED ONE Stop: 10/31/19 06:01 Benzocaine (Hurricaine One 20%) 1 each MUCMEM .STK-MED ONE Stop: 10/31/19 09:08 Last Admin: 10/31/19 09:07 Dose: 1 each Fentanyl (Sublimaze) Confirm Administered Dose 100 mcg .ROUTE .STK-MED ONE Stop: 10/31/19 06:01 Fentanyl (Sublimaze) 50 mcg IV .STK-MED ONE Stop: 10/31/19 09:04 Last Admin: 10/31/19 09:03 Dose: 50 mcg Potassium Chloride/Sodium Chloride (Normal Saline With 20 Meq Kcl) 1,000 mls @ 75 mls/hr IV ASDIRECTED [facility] Magnesium Oxide (Magnesium Oxide) 250 mg PO DAILY [facility] Stop: 10/30/19 09:01 Last Admin: 10/30/19 08:01 Dose: 250 mg Midazolam HCl (Versed 1 Mg/Ml) Confirm Administered Dose 6 mg .ROUTE .STK-MED ONE Stop: 10/31/19 06:01 Midazolam HCl (Versed 1 Mg/Ml) 1 mg IV .STK-MED ONE Stop: 10/31/19 09:06 Last Admin: 10/31/19 09:05 Dose: 1 mg Midazolam HCl (Versed 1 Mg/Ml) 1 mg IV .STK-MED ONE Stop: 10/31/19 09:09 Last Admin: 10/31/19 09:08 Dose: 1 mg Non-Formulary Medication (Magnesium Oxide [Magnesium]) 100 mg PO DAILY DRE[facility] Polyethylene Glycol/Electrolytes (Golytely) 4,000 ml PO ONETIME ONE Stop: 10/30/19 18:01 Last Admin: 10/30/19 18:05 Dose: 4,000 ml Potassium Chloride (Klor-Con 10) 40 meq PO ONETIME ONE Stop: 10/31/19 11:10 - Exam General: Reports: Alert, Oriented Neck: Reports: Supple Lungs: Reports: Clear to Auscultation, Normal Respiratory Effort Cardiovascular: Reports: Regular Rate, Regular Rhythm GI/Abdominal Exam: Normal Bowel Sounds, Soft, Non-Tender Extremities: No: Pedal Edema Skin: Reports: Warm, Dry
[2019-10-31 12:57] VITALS: BP 121/59; PULSE 73
== END 2019-10-31 15:40 | disposition home or self-care (01) | DRG 377 ==
LOC: DL.MS 15:43 → OBSVTOIN 16:32
PROVIDERS: ADMIT Internal Medicine; ATTEND Internal Medicine
PROC: 30233N1 Transfusion of Nonautologous Red Blood Cells into Peripheral Vein, Percutaneous Approach (ICD-10-PCS; 2019-10-28)
PROC: 0DJ08ZZ Inspection of Upper Intestinal Tract, Via Natural or Artificial Opening Endoscopic (ICD-10-PCS; principal; 2019-10-31)
PROC: 0DJD8ZZ Inspection of Lower Intestinal Tract, Via Natural or Artificial Opening Endoscopic (ICD-10-PCS; 2019-10-31)
DX: K92.2 Gastrointestinal hemorrhage, unspecified (principal); I26.99 Other pulmonary embolism without acute cor pulmonale; D62 Acute posthemorrhagic anemia; I50.32 Chronic diastolic (congestive) heart failure; D52.9 Folate deficiency anemia, unspecified; D50.9 Iron deficiency anemia, unspecified; D51.3 Other dietary vitamin B12 deficiency anemia; K44.9 Diaphragmatic hernia without obstruction or gangrene; E53.8 Deficiency of other specified B group vitamins; H54.8 Legal blindness, as defined in USA; I48.91 Unspecified atrial fibrillation; E78.00 Pure hypercholesterolemia, unspecified; I11.0 Hypertensive heart disease with heart failure; R32 Unspecified urinary incontinence; J44.9 Chronic obstructive pulmonary disease, unspecified; K21.9 Gastro-esophageal reflux disease without esophagitis; M54.9 Dorsalgia, unspecified; Z79.52 Long term (current) use of systemic steroids; R79.1 Abnormal coagulation profile; Z86.718 Personal history of other venous thrombosis and embolism; G89.29 Other chronic pain; M19.90 Unspecified osteoarthritis, unspecified site; R51 Headache; E11.9 Type 2 diabetes mellitus without complications; Z98.890 Other specified postprocedural states; Z86.711 Personal history of pulmonary embolism; Z86.73 Personal history of transient ischemic attack (TIA), and cerebral infarction without residual deficits; Z79.01 Long term (current) use of anticoagulants; Z88.1 Allergy status to other antibiotic agents; Z88.5 Allergy status to narcotic agent; Z88.8 Allergy status to other drugs, medicaments and biological substances; Z79.82 Long term (current) use of aspirin; Z79.51 Long term (current) use of inhaled steroids; Z79.84 Long term (current) use of oral hypoglycemic drugs; Z79.899 Other long term (current) drug therapy; Z95.0 Presence of cardiac pacemaker
CPT/HCPCS: 36415; 36430; 43235; 80048; 82962; 85025; 85610; 86850; 86900; 86901; 86920; 86922; A9270-GY; G0121; J1815; J2250; J3010; J7030; P9016

== ENCOUNTER 2019-11-12 17:37 | Inpatient (IN) | payer MEDICARE, BC ==
--- NOTE | 2019-11-12 18:48 | EDM.PDOC ---
ED HPI GENERAL MEDICAL PROBLEM - General Chief Complaint: Respiratory Problem Stated Complaint: AMBULANCE Time Seen by Provider: 11/12/19 18:43 Source of Information: Reports: Patient History Limitations: Reports: No Limitations - History of Present Illness INITIAL COMMENTS - FREE TEXT/NARRATIVE: states been sob for awhile worse tonight. some chest pain when cough. states hadn't been feeling well for awhile. saw clinic yesterday told has UTI and taking ABX. feels dehydrated, weak no energy. little appetite. family arrived states pt been unsteady with increase sob when walks about the house. Back Pain Score (Numeric/FACES): 8 - Related Data Allergies Allergy/AdvReac Type Severity Reaction Status Date / Time amoxicillin Allergy Hives Verified 10/28/19 16:24 ezetimibe Allergy Cannot Verified 10/28/19 16:24 Remember morphine Allergy Confusion Verified 10/28/19 16:24 moxifloxacin Allergy Cannot Verified 10/28/19 16:24 Remember naproxen [From Aleve] Allergy Cannot Verified 10/28/19 16:24 Remember Avifkyv-Rir-Vbs Reductase Allergy Muscle Verified 10/28/19 16:24 Inhibitor Aches sulindac Allergy Cannot Verified 10/28/19 16:24 Remember Tetracyclines Allergy Cannot Verified 10/28/19 16:24 Remember Home Meds: Home Meds Fenofibrate 160 mg PO .1800 04/20/15 [History] Metoprolol Succinate [Toprol XL] 100 mg PO DAILY 04/20/15 [History] metFORMIN [Glucophage] 1,000 mg PO BIDMEALS 04/20/15 [History] Pantoprazole [ProTONIX] 40 mg PO DAILY PRN 03/24/16 [History] cloNIDine [Catapres] 0.2 mg PO BID 02/10/17 [History] Cholecalciferol (Vitamin D3) [Vitamin D3] 2,000 unit PO BEDTIME 07/25/18 [ History] Calcium Citrate/Vitamin D3 [Citracal + D Maximum Caplet] 1 each PO .1800 [History] Albuterol [Proventil HFA] 2 puff INH Q4H PRN 08/23/19 [History] Albuterol/Ipratropium [DuoNeb 3.0-0.5 MG/3 ML] 3 ml INH Q4H PRN 08/23/19 [ History] Aspirin [Adult Low Dose Aspirin EC] 81 mg PO DAILY 08/23/19 [History] Ciclopirox/Ure/Camph/Menth/Euc [Ciclopirox 8% Treatment Kit] 34.6 ml TP DAILY [History] Ferrous Sulfate 325 mg PO .SUPPER 08/23/19 [History] Folic Acid 1 mg PO DAILY 08/23/19 [History] Magnesium Oxide [Magnesium] 100 mg PO DAILY 08/23/19 [History] [place]-3 Acid Ethyl Esters [Lovaza] 2 gm PO BID 08/23/19 [History] Propylene Glycol/Peg 400 [Systane 0.3-0.4% Eye Drops] 1 drop EYEBOTH BID [History] amLODIPine [Norvasc] 10 mg PO DAILY 08/23/19 [History] hydroCHLOROthiazide [Hydrochlorothiazide] 25 mg PO DAILY 08/23/19 [History] Furosemide [Lasix] 20 mg PO DAILY 10/03/19 [History] Warfarin [Coumadin] 2.5 mg PO DAILY #30 tab 10/31/19 [Rx] Past Medical History - Past Health History Medical/Surgical History: Denies Medical/Surgical History HEENT History: Reports: Impaired Vision Other HEENT History: wears glasses, is legally blind Cardiovascular History: Reports: Afib, Blood Clots/VTE/DVT, Heart Failure, High Cholesterol, Hypertension, Pacemaker Other Cardiovascular History: pauses in heart beat Respiratory History: Reports: COPD, PE, SOB, Other (See Below) Other Respiratory History: recent intubation Gastrointestinal History: Reports: GERD Other Gastrointestinal History: prolapsed rectum Genitourinary History: Reports: Urinary Incontinence Other Genitourinary History: wears protection 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: Musculoskeletal History: Reports: Back Pain, Chronic, Osteoarthritis, Other ( See Below) Other Musculoskeletal History: degenerative disc disease Neurological History: Reports: CVA, Headaches, Chronic, Other (See Below) Other Neuro History: cva in 2010 Psychiatric History: Reports: None Endocrine/Metabolic History: Reports: Diabetes, Type II Hematologic History: Reports: None Immunologic History: Reports: None Oncologic (Cancer) History: Reports: None Dermatologic History: Reports: None - Infectious Disease History Infectious Disease History: Reports: Chicken Pox, Measles - Past Surgical History Head Surgeries/Procedures: Reports: None HEENT Surgical History: Reports: None Cardiovascular Surgical History: Reports: Pacer Respiratory Surgical History: Reports: None GI Surgical History: Reports: Other (See Below) Other GI Surgeries/Procedures: Bowel resection Female Surgical History: Reports: Other (See Below) Other Female Surgeries/Procedures: Bladder surgery Musculoskeletal Surgical History: Reports: None Social & Family History - Family History Family Medical History: Noncontributory - Tobacco Use Smoking Status *Q: Never Smoker Second Hand Smoke Exposure: No - Caffeine Use Caffeine Use: Reports: Coffee, Soda, Tea - Recreational Drug Use Recreational Drug Use: No - Living Situation & Occupation Living situation: Reports: , Alone Occupation: Retired ED ROS GENERAL - Review of Systems Review Of Systems: Comprehensive ROS is negative, except as noted in HPI. ED EXAM, GENERAL - Physical Exam Exam: See Below Exam Limited By: No Limitations General Appearance: Alert, WD/WN, No Apparent Distress Ears: Hearing Grossly Normal Throat/Mouth: Normal Voice, No Airway Compromise Head: Atraumatic Neck: Non-Tender, Full Range of Motion Respiratory/Chest: No Accessory Muscle Use, Rhonchi. No: Decreased Breath Sounds Cardiovascular: Regular Rate, Rhythm GI/Abdominal: Soft, Non-Tender Extremities: Pedal Edema, Other (2+) Neurological: Alert, Oriented, Normal Cognition, No Motor/Sensory Deficits Psychiatric: Flat Affect Skin Exam: Warm, Dry, Normal Color Lymphatic: No Adenopathy Course - Vital Signs Last Recorded V/S: Last Vital Signs Temp 36.9 C 11/12/19 18:19 Pulse 88 11/12/19 18:19 Resp 20 11/12/19 18:19 BP 160/63 H 11/12/19 18:19 Pulse Ox - Orders/Labs/Meds Orders: Active Orders 24 hr Category Date Time Status Patient Status [ADT] Routine ADT 11/12/19 20:32 Active Cardiac Monitoring [RC] CONTINUOUS Care 11/12/19 20:35 Active EKG Documentation Completion [RC] STAT Care 11/12/19 18:41 Active Intake and Output [RC] QSHIFT Care 11/12/19 20:35 Active Oxygen Therapy [RC] PRN Care 11/12/19 20:32 Active RT Aerosol Therapy [RC] ASDIRECTED Care 11/12/19 20:38 Active Up ad Yulissa [RC] ASDIRECTED Care 11/12/19 20:32 Active VTE/DVT Education [RC] PER UNIT ROUTINE Care 11/12/19 20:32 Active Vital Signs [RC] Q4H Care 11/12/19 20:32 Active 2 Gram Sodium Diet [DIET] Diet 11/12/19 Dinner Active BASIC METABOLIC PANEL,BMP [CHEM] AM Lab 11/13/19 05:11 Ordered INR,PT,PROTHROMBIN TIME [COAG] AM Lab 11/13/19 05:11 Ordered TROPONIN I [CHEM] Q6H Lab 11/12/19 20:32 Ordered Acetaminophen [Tylenol] Med 11/12/19 20:32 Ordered 650 mg PO Q4H PRN Albuterol [Proventil Neb Soln] Med 11/12/19 20:32 Ordered 2.5 mg NEB Q2H PRN Furosemide [Lasix] Med 11/12/19 20:45 Ordered 20 mg IVPUSH Q12H Ondansetron [Zofran] Med 11/12/19 20:32 Ordered 4 mg IVPUSH Q6H PRN Sodium Chloride 0.9% [Saline Flush] Med 11/12/19 20:38 Ordered 10 ml FLUSH ASDIRECTED PRN Saline Lock Insert [OM.PC] Routine Oth 11/12/19 20:32 Ordered Resuscitation Status Routine Resus Stat 11/12/19 20:32 Ordered Medication Orders Acetaminophen (Tylenol) 650 mg PO Q4H PRN PRN Reason: Pain (Mild 1-3)/fever Albuterol (Proventil Neb Soln) 2.5 mg NEB Q2H PRN PRN Reason: shortness of breath/wheezing Furosemide (Lasix) 20 mg IVPUSH Q12H DREA Ondansetron HCl (Zofran) 4 mg IVPUSH Q6H PRN PRN Reason: Nausea/Vomiting Sodium Chloride (Saline Flush) 10 ml FLUSH ASDIRECTED PRN PRN Reason: Keep Vein Open Labs: Laboratory Tests 11/12/19 11/12/19 11/12/19 Range/Units 18:45 18:45 18:45 WBC 10.7 H (5.0-10.0) 10^3/uL RBC 4.05 L (4.2-5.4) 10^6/uL Hgb 10.5 L D (12.0-16.0) g/dL Hct 32.2 L (37.0-47.0) % MCV 79.5 L (80-100) fL MCH 25.9 L (27.0-34.0) pg MCHC 32.6 L (33.0-35.0) g/dL Plt Count 135 L D (150-450) 10^3/uL Neut % (Auto) 81.4 H (42.2-75.2) % Lymph % (Auto) 5.0 L (20.5-50.1) % [place] % (Auto) 4.1 (2-8) % Eos % (Auto) 8.9 H (1.0-3.0) % Baso % (Auto) 0.6 (0.0-1.0) % PT (9.0-12.0) SEC INR (0.9-1.2) D-Dimer, Quantitative (0-400) ng/mL Sodium 137 (135-145) mmol/L Potassium 3.4 L (3.6-5.0) mmol/L Chloride 95 L (101-111) mmol/L Carbon Dioxide 32.0 H (21.0-31.0) mmol/L Anion Gap 13.4 BUN 25 H (7-18) mg/dL Creatinine 0.9 (0.6-1.3) mg/dL Est Cr Clr Drug Dosing 38.88 mL/min Estimated GFR (MDRD) 59 BUN/Creatinine Ratio 27.77 Glucose 138 H (74-105) mg/dL Lactic Acid 1.7 (0.5-2.0) mmol/L Calcium 9.5 (8.4-10.2) mg/dl Total Bilirubin 0.6 (0.2-1.0) mg/dL AST 32 (10-42) IU/L ALT 18 (10-60) IU/L Alkaline Phosphatase 31 L (42-121) IU/L Troponin I < 0.02 (0.00-0.02) ng/ml B-Natriuretic Peptide 449 H (0-100) pg/ml Total Protein 7.2 (6.7-8.2) g/dl Albumin 4.1 (3.2-5.5) g/dl Globulin 3.1 Albumin/Globulin Ratio 1.32 11/12/19 11/12/19 Range/Units 19:45 19:45 WBC (5.0-10.0) 10^3/uL RBC (4.2-5.4) 10^6/uL Hgb (12.0-16.0) g/dL Hct (37.0-47.0) % MCV (80-100) fL MCH (27.0-34.0) pg MCHC (33.0-35.0) g/dL Plt Count (150-450) 10^3/uL Neut % (Auto) (42.2-75.2) % Lymph % (Auto) (20.5-50.1) % [place] % (Auto) (2-8) % Eos % (Auto) (1.0-3.0) % Baso % (Auto) (0.0-1.0) % PT 12.0 (9.0-12.0) SEC INR 1.2 (0.9-1.2) D-Dimer, Quantitative 970 H (0-400) ng/mL Sodium (135-145) mmol/L Potassium (3.6-5.0) mmol/L Chloride (101-111) mmol/L Carbon Dioxide (21.0-31.0) mmol/L Anion Gap BUN (7-18) mg/dL Creatinine (0.6-1.3) mg/dL Est Cr Clr Drug Dosing mL/min Estimated GFR (MDRD) BUN/Creatinine Ratio Glucose (74-105) mg/dL Lactic Acid (0.5-2.0) mmol/L Calcium (8.4-10.2) mg/dl Total Bilirubin (0.2-1.0) mg/dL AST (10-42) IU/L ALT (10-60) IU/L Alkaline Phosphatase (42-121) IU/L Troponin I (0.00-0.02) ng/ml B-Natriuretic Peptide (0-100) pg/ml Total Protein (6.7-8.2) g/dl Albumin (3.2-5.5) g/dl Globulin Albumin/Globulin Ratio Meds: Medications Generic Name Dose Route Start Last Admin Trade Name Freq PRN Reason Stop Dose Admin Acetaminophen 650 mg 11/12/19 20:32 Tylenol PO Q4H PRN Pain (Mild 1-3)/fever Albuterol 2.5 mg 11/12/19 20:32 Proventil Neb Soln NEB Q2H PRN shortness of breath/wheezing Furosemide 20 mg 11/12/19 20:45 Lasix IVPUSH Q12H DREA Ondansetron HCl 4 mg 11/12/19 20:32 Zofran IVPUSH Q6H PRN Nausea/Vomiting Sodium Chloride 10 ml 11/12/19 20:38 Saline Flush FLUSH ASDIRECTED PRN Keep Vein Open - Re-Assessments/Exams Free Text/Narrative Re-Assessment/Exam: 11/12/19 20:[address] Garrett who kindly admitted pt. Departure - Departure Time of Disposition: 20:56 Disposition: Admitted As Inpatient 67 Condition: Fair Clinical Impression: COPD (chronic obstructive pulmonary disease) Qualifiers: COPD type: unspecified COPD Qualified Code(s): J44.9 - Chronic obstructive pulmonary disease, unspecified CHF (congestive heart failure) Qualifiers: Heart failure type: unspecified Heart failure chronicity: acute Qualified Code( s): I50.9 - Heart failure, unspecified - Discharge Information Sepsis Event Note - Evaluation Sepsis Screening Result: No Definite Risk - Focused Exam Vital Signs: Vital Signs Temp Pulse Resp BP 11/12/19 18:19 36.9 C 88 20 160/63 H Date Exam was Performed: 11/12/19 Time Exam was Performed: 20:55 - My Orders Last 24 Hours: My Active Orders 11/12/19 18:41 EKG Documentation Completion [RC] STAT - Assessment/Plan Last 24 Hours: My Active Orders 11/12/19 18:41 EKG Documentation Completion [RC] STAT
[2019-11-12 19:14] LABS: ANION GAP 13.4; CHLORIDE,CL 95 mmol/L (101-111); SODIUM,NA 137 mmol/L (135-145)
[2019-11-12] MEDS ORDERED: Albuterol 0.083% 2.5 MG/3 ML Neb Soln NEB PRN (20:32)
[2019-11-12] MEDS ORDERED: Ondansetron 4 MG/2 ML SDV IVPUSH PRN (20:32)
[2019-11-12] MEDS: Furosemide 20 MG/2 ML VIAL IVPUSH SCH (21:37)
[2019-11-13] MEDS ORDERED: Enoxaparin 60 MG/0.6 ML Syringe SUBCUT SCH
[2019-11-13] MEDS ORDERED: Enoxaparin 60 MG/0.6 ML Syringe ONE (00:04)
[2019-11-13] MEDS: Enoxaparin 60 MG/0.6 ML Syringe SUBCUT SCH ×3 (05:45→21:02)
[2019-11-13 06:43] LABS: ANION GAP 14.1
[2019-11-13] MEDS ORDERED: Albuterol/Ipratropium 3.0-0.5 MG/3 ML Neb Soln INH PRN (08:08)
[2019-11-13] MEDS ORDERED: Albuterol 6.7 GM Inhaler INH PRN (08:08)
[2019-11-13] MEDS ORDERED: Pantoprazole 40 MG Tab.CR PO PRN (08:08)
[2019-11-13] MEDS: Acetaminophen 325 MG Tab PO PRN ×2 (08:15→12:26)
[2019-11-13] MEDS ORDERED: Non-Formulary Medication 1 Each (Fenofibrate [Fenofibrate] 160 MG) PO SCH (08:15)
[2019-11-13] MEDS: Furosemide 20 MG/2 ML VIAL IVPUSH SCH ×2 (08:16→21:06)
[2019-11-13] MEDS: Sodium Chloride 0.9% 10 ML Syringe FLUSH PRN ×2 (08:17→21:05)
[2019-11-13] MEDS ORDERED: [UNRECOGNIZED DRUG - OTHER] TP SCH (09:00)
[2019-11-13] MEDS ORDERED: Non-Formulary Medication 1 Each (Propylene Glycol/Peg 400 [Systane 0.3-0.4% Eye Drops] 1 D EYEBOTH SCH (09:00)
[2019-11-13] MEDS ORDERED: OMEGA ACID ETHYL ESTERS PO SCH (09:00)
[2019-11-13] MEDS ORDERED: MAGNESIUM OXIDE 100 MG PO SCH (09:00)
[2019-11-13] MEDS: amLODIPine 5 MG Tab PO SCH (09:19)
[2019-11-13] MEDS: Potassium Chloride 10 MEQ Tab.ER PO SCH ×2 (09:20→17:08)
[2019-11-13] MEDS: Metoprolol Succinate 50 MG Tab.ER PO SCH (09:20)
[2019-11-13] MEDS: Folic Acid 1 MG Tab PO SCH (09:20)
[2019-11-13] MEDS: Aspirin 81 MG Tab.EC PO SCH (09:20)
[2019-11-13] MEDS: Hydrochlorothiazide 25 MG Tab PO SCH (09:20)
[2019-11-13] MEDS: cloNIDine 0.1 MG Tab PO SCH ×2 (09:21→20:58)
--- NOTE | 2019-11-13 09:40 | PCM.HP ---
H&P History of Present Illness - General Date of Service: 11/12/19 Admit Problem/Dx: Admission Diagnosis/Problem Admission Diagnosis/Problem CHF, Congestive heart failure Source of Information: Significant Other - History of Present Illness Initial Comments - Free Text/Narative: The patient is an 89-year-old female with multiple medical problems including atrial fibrillation status post pacemaker placement, history of pulmonary embolism, hypertension, COPD, diabetes mellitus type 2. Patient presented to the emergency room complaining of shortness of breath which has been going on for at least one week. The shortness of breath was mild initially but has worsened over time. Has associated generalized body malaise and weakness. Also has associated back pain and neck pain. No fever and no chills. Patient was noted to be weak and hypoxic. Back Pain Score (Numeric/FACES): 8 - Related Data Allergies/Adverse Reactions: Allergies Allergy/AdvReac Type Severity Reaction Status Date / Time amoxicillin Allergy Hives Verified 11/13/19 06:12 ezetimibe Allergy Cannot Verified 11/13/19 06:12 Remember morphine Allergy Confusion Verified 11/13/19 06:12 moxifloxacin Allergy Cannot Verified 11/13/19 06:12 Remember naproxen [From Aleve] Allergy Cannot Verified 11/13/19 06:12 Remember Rfgetci-Bif-Chl Reductase Allergy Muscle Verified 11/13/19 06:12 Inhibitor Aches sulindac Allergy Cannot Verified 11/13/19 06:12 Remember Tetracyclines Allergy Cannot Verified 11/13/19 06:12 Remember Home Medications: Home Meds Fenofibrate 160 mg PO .1800 04/20/15 [History] Metoprolol Succinate [Toprol XL] 100 mg PO DAILY 04/20/15 [History] metFORMIN [Glucophage] 1,000 mg PO BIDMEALS 04/20/15 [History] Pantoprazole [ProTONIX] 40 mg PO DAILY PRN 03/24/16 [History] cloNIDine [Catapres] 0.2 mg PO BID 02/10/17 [History] Cholecalciferol (Vitamin D3) [Vitamin D3] 2,000 unit PO BEDTIME 07/25/18 [ History] Calcium Citrate/Vitamin D3 [Citracal + D Maximum Caplet] 1 each PO .1800 [History] Albuterol [Proventil HFA] 2 puff INH Q4H PRN 08/23/19 [History] Albuterol/Ipratropium [DuoNeb 3.0-0.5 MG/3 ML] 3 ml INH Q4H PRN 08/23/19 [ History] Aspirin [Adult Low Dose Aspirin EC] 81 mg PO DAILY 08/23/19 [History] Ciclopirox/Ure/Camph/Menth/Euc [Ciclopirox 8% Treatment Kit] 34.6 ml TP DAILY [History] Ferrous Sulfate 325 mg PO .SUPPER 08/23/19 [History] Folic Acid 1 mg PO DAILY 08/23/19 [History] Magnesium Oxide [Magnesium] 100 mg PO DAILY 08/23/19 [History] [place]-3 Acid Ethyl Esters [Lovaza] 2 gm PO BID 08/23/19 [History] Propylene Glycol/Peg 400 [Systane 0.3-0.4% Eye Drops] 1 drop EYEBOTH BID [History] amLODIPine [Norvasc] 10 mg PO DAILY 08/23/19 [History] hydroCHLOROthiazide [Hydrochlorothiazide] 25 mg PO DAILY 08/23/19 [History] Furosemide [Lasix] 20 mg PO DAILY 10/03/19 [History] Warfarin [Coumadin] 2.5 mg PO DAILY #30 tab 10/31/19 [Rx] Past Medical History - Past Health History Medical/Surgical History: Denies Medical/Surgical History HEENT History: Reports: Impaired Vision Other HEENT History: wears glasses, is legally blind Cardiovascular History: Reports: Afib, Blood Clots/VTE/DVT, Heart Failure, High Cholesterol, Hypertension, Pacemaker Other Cardiovascular History: pauses in heart beat Respiratory History: Reports: COPD, PE, SOB, Other (See Below) Other Respiratory History: recent intubation Gastrointestinal History: Reports: GERD Other Gastrointestinal History: prolapsed rectum Genitourinary History: Reports: Urinary Incontinence Other Genitourinary History: wears protection [employer] History: Reports: Musculoskeletal History: Reports: Back Pain, Chronic, Osteoarthritis, Other ( See Below) Other Musculoskeletal History: degenerative disc disease Neurological History: Reports: CVA, Headaches, Chronic, Other (See Below) Other Neuro History: cva in 2010 Psychiatric History: Reports: None Endocrine/Metabolic History: Reports: Diabetes, Type II Hematologic History: Reports: None Immunologic History: Reports: None Oncologic (Cancer) History: Reports: None Dermatologic History: Reports: None - Infectious Disease History Infectious Disease History: Reports: Chicken Pox, Measles - Past Surgical History Head Surgeries/Procedures: Reports: None HEENT Surgical History: Reports: None Cardiovascular Surgical History: Reports: Pacer Respiratory Surgical History: Reports: None GI Surgical History: Reports: Other (See Below) Other GI Surgeries/Procedures: Bowel resection Female Surgical History: Reports: Other (See Below) Other Female Surgeries/Procedures: Bladder surgery Musculoskeletal Surgical History: Reports: None Social & Family History - Family History Family Medical History: Noncontributory - Tobacco Use Smoking Status *Q: Former Smoker Years of Tobacco use: 2 Packs/Tins Daily: 5 Used Tobacco, but Quit: Yes Month/Year Tobacco Last Used: Second Hand Smoke Exposure: No - Caffeine Use Caffeine Use: Reports: None - Recreational Drug Use Recreational Drug Use: No - Living Situation & Occupation Living situation: Reports: , Alone Occupation: Retired H&P Review of Systems - Review of Systems: Review Of Systems: See Below General: Reports: Chills, Weakness, Fatigue Pulmonary: Reports: Shortness of Breath Cardiovascular: Reports: No Symptoms Gastrointestinal: Reports: No Symptoms Musculoskeletal: Reports: Arm Pain, Back Pain Skin: Reports: No Symptoms Exam - Exam Exam: See Below - Vital Signs Vital Signs: Last Vital Signs Temp 37.3 C 11/13/19 09:00 Pulse 102 H 11/13/19 09:20 Resp 22 H 11/13/19 09:00 BP 140/56 L 11/13/19 09:21 Pulse Ox 97 11/13/19 09:00 Weight: 67.812 kg - Exam General: Alert, Oriented, Cooperative HEENT: PERRLA, Hearing Intact, Mucosa Moist & [place], Nares Patent, Normal Nasal Septum, Posterior Pharynx Clear, Conjunctiva Clear, EOMI, EACs Clear, TMs Clear Neck: Supple, Trachea Midline, 2 Lungs: Decreased Breath Sounds Cardiovascular: Regular Rate, Regular Rhythm GI/Abdominal Exam: Normal Bowel Sounds, Soft, Non-Tender, No Organomegaly, No Distention, No Abnormal Bruit, No Mass, Pelvis Stable Back Exam: Normal Inspection, Full Range of Motion, NT Extremities: Normal Inspection, Normal Range of Motion, Non-Tender, No Pedal Edema, Normal Capillary Refill - Patient Data Lab Results Last 24 hrs: Laboratory Results - last 24 hr 11/12/19 11/12/19 11/12/19 Range/Units 18:45 18:45 18:45 WBC 10.7 H (5.0-10.0) 10^3/uL RBC 4.05 L (4.2-5.4) 10^6/uL Hgb 10.5 L D (12.0-16.0) g/dL Hct 32.2 L (37.0-47.0) % MCV 79.5 L (80-100) fL MCH 25.9 L (27.0-34.0) pg MCHC 32.6 L (33.0-35.0) g/dL Plt Count 135 L D (150-450) 10^3/uL Neut % (Auto) 81.4 H (42.2-75.2) % Lymph % (Auto) 5.0 L (20.5-50.1) % [place] % (Auto) 4.1 (2-8) % Eos % (Auto) 8.9 H (1.0-3.0) % Baso % (Auto) 0.6 (0.0-1.0) % PT (9.0-12.0) SEC INR (0.9-1.2) D-Dimer, Quantitative (0-400) ng/mL Sodium 137 (135-145) mmol/L Potassium 3.4 L (3.6-5.0) mmol/L Chloride 95 L (101-111) mmol/L Carbon Dioxide 32.0 H (21.0-31.0) mmol/L Anion Gap 13.4 BUN 25 H (7-18) mg/dL Creatinine 0.9 (0.6-1.3) mg/dL Est Cr Clr Drug Dosing 38.88 mL/min Estimated GFR (MDRD) 59 BUN/Creatinine Ratio 27.77 Glucose 138 H (74-105) mg/dL POC Glucose (83-110) mg/dl Lactic Acid 1.7 (0.5-2.0) mmol/L Calcium 9.5 (8.4-10.2) mg/dl Total Bilirubin 0.6 (0.2-1.0) mg/dL AST 32 (10-42) IU/L ALT 18 (10-60) IU/L Alkaline Phosphatase 31 L (42-121) IU/L Troponin I < 0.02 (0.00-0.02) ng/ml B-Natriuretic Peptide 449 H (0-100) pg/ml Total Protein 7.2 (6.7-8.2) g/dl Albumin 4.1 (3.2-5.5) g/dl Globulin 3.1 Albumin/Globulin Ratio 1.32 11/12/19 11/12/19 11/13/19 Range/Units 19:45 19:45 02:00 WBC (5.0-10.0) 10^3/uL RBC (4.2-5.4) 10^6/uL Hgb (12.0-16.0) g/dL Hct (37.0-47.0) % MCV (80-100) fL MCH (27.0-34.0) pg MCHC (33.0-35.0) g/dL Plt Count (150-450) 10^3/uL Neut % (Auto) (42.2-75.2) % Lymph % (Auto) (20.5-50.1) % [place] % (Auto) (2-8) % Eos % (Auto) (1.0-3.0) % Baso % (Auto) (0.0-1.0) % PT 12.0 (9.0-12.0) SEC INR 1.2 (0.9-1.2) D-Dimer, Quantitative 970 H (0-400) ng/mL Sodium (135-145) mmol/L Potassium (3.6-5.0) mmol/L Chloride (101-111) mmol/L Carbon Dioxide (21.0-31.0) mmol/L Anion Gap BUN (7-18) mg/dL Creatinine (0.6-1.3) mg/dL Est Cr Clr Drug Dosing mL/min Estimated GFR (MDRD) BUN/Creatinine Ratio Glucose (74-105) mg/dL POC Glucose (83-110) mg/dl Lactic Acid (0.5-2.0) mmol/L Calcium (8.4-10.2) mg/dl Total Bilirubin (0.2-1.0) mg/dL AST (10-42) IU/L ALT (10-60) IU/L Alkaline Phosphatase (42-121) IU/L Troponin I 0.02 (0.00-0.02) ng/ml B-Natriuretic Peptide (0-100) pg/ml Total Protein (6.7-8.2) g/dl Albumin (3.2-5.5) g/dl Globulin Albumin/Globulin Ratio 11/13/19 11/13/19 11/13/19 Range/Units 06:10 06:10 07:56 WBC (5.0-10.0) 10^3/uL RBC (4.2-5.4) 10^6/uL Hgb (12.0-16.0) g/dL Hct (37.0-47.0) % MCV (80-100) fL MCH (27.0-34.0) pg MCHC (33.0-35.0) g/dL Plt Count (150-450) 10^3/uL Neut % (Auto) (42.2-75.2) % Lymph % (Auto) (20.5-50.1) % [place] % (Auto) (2-8) % Eos % (Auto) (1.0-3.0) % Baso % (Auto) (0.0-1.0) % PT 12.7 H (9.0-12.0) SEC INR 1.3 H (0.9-1.2) D-Dimer, Quantitative (0-400) ng/mL Sodium 137 (135-145) mmol/L Potassium 3.1 L (3.6-5.0) mmol/L Chloride 94 L (101-111) mmol/L Carbon Dioxide 32.0 H (21.0-31.0) mmol/L Anion Gap 14.1 BUN 22 H (7-18) mg/dL Creatinine 0.9 (0.6-1.3) mg/dL Est Cr Clr Drug Dosing 40.45 mL/min Estimated GFR (MDRD) 59 BUN/Creatinine Ratio Glucose 129 H (74-105) mg/dL POC Glucose 119 H (83-110) mg/dl Lactic Acid (0.5-2.0) mmol/L Calcium 9.2 (8.4-10.2) mg/dl Total Bilirubin (0.2-1.0) mg/dL AST (10-42) IU/L ALT (10-60) IU/L Alkaline Phosphatase (42-121) IU/L Troponin I (0.00-0.02) ng/ml B-Natriuretic Peptide (0-100) pg/ml Total Protein (6.7-8.2) g/dl Albumin (3.2-5.5) g/dl Globulin Albumin/Globulin Ratio Result Diagrams: 11/12/19 18:45 11/13/19 06:10 Problem List Initiated/Reviewed/Updated: Yes Orders Last 24hrs: Active Orders 24 hr Category Date Time Status Admission Diagnosis [ADT] Urgent ADT 11/12/19 20:39 Ordered Admission Status [Patient Status] [ADT] Routine ADT 11/12/19 20:39 Active Patient Status [ADT] Routine ADT 11/12/19 20:32 Active Blood Glucose Check, Bedside [RC] QIDACANDBED Care 11/13/19 08:53 Active Cardiac Monitoring [RC] 0820 Care 11/12/19 20:35 Active Insert [place] Catheter [Insert Urinary Catheter] [OM.PC] Care 11/12/19 22:15 Ordered Q24H Intake and Output [RC] QSHIFT Care 11/12/19 20:35 Active Oxygen Therapy [RC] PRN Care 11/12/19 20:32 Active RT Aerosol Therapy [RC] ASDIRECTED Care 11/12/19 20:38 Active Up ad [place]ulissa [RC] ASDIRECTED Care 11/12/19 20:32 Active Urinary Catheter Assessment [RC] ASDIRECTED Care 11/12/19 22:08 Active VTE/DVT Education [RC] PER UNIT ROUTINE Care 11/12/19 20:32 Active Vital Signs [RC] 07,11,15,19,23,03 Care 11/12/19 20:32 Active 2 Gram Sodium Diet [DIET] Diet 11/12/19 Dinner Active B-TYPE NATRIURETIC PEPTIDE,BNP [CHEM] Routine Lab 11/14/19 08:11 Ordered BASIC METABOLIC PANEL,BMP [CHEM] AM Lab 11/14/19 05:11 Ordered CBC W/O DIFF,HEMOGRAM [HEME] AM Lab 11/14/19 05:11 Ordered Acetaminophen [Tylenol Extra Strength] Med 11/13/19 21:00 Active 1,000 mg PO BID Acetaminophen [Tylenol] Med 11/12/19 20:32 Active 650 mg PO Q4H PRN Albuterol [Proventil HFA] Med 11/13/19 08:08 Active 0 gm INH Q4H PRN Albuterol [Proventil Neb Soln] Med 11/12/19 20:32 Active 2.5 mg NEB Q2H PRN Albuterol/Ipratropium [DuoNeb 3.0-0.5 MG/3 ML] Med 11/13/19 08:08 Active 3 ml INH Q4H PRN Aspirin [Halfprin] Med 11/13/19 09:00 Active 81 mg PO DAILY Calcium Carbonate/Vitamin D3 [Calcium Carbonate/Vitamin Med 11/13/19 18:00 Active D 1250 MG-200 Unit] 1 tab PO WITHDINNER Cholecalciferol (Vitamin D3) [Vitamin D3] Med 11/13/19 21:00 Active 50 mcg PO BEDTIME Ciclopirox/Ure/Camph/Menth/Euc [Ciclopirox 8% Treatment Med 11/13/19 09:00 Ordered Kit] 34.6 ml TP DAILY Enoxaparin [Lovenox] Med 11/13/19 00:00 Active 60 mg SUBCUT Q12HR Fenofibrate [Fenofibrate] Med 11/13/19 08:15 Ordered 160 mg PO .1800 Ferrous Sulfate Med 11/13/19 18:00 Active 325 mg PO WITHDINNER Folic Acid Med 11/13/19 09:00 Active 1 mg PO DAILY Furosemide [Lasix] Med 11/12/19 21:00 Active 20 mg IVPUSH Q12H Magnesium Oxide [Magnesium] Med 11/13/19 09:00 Ordered 100 mg PO DAILY Metoprolol Succinate [Toprol XL] Med 11/13/19 09:00 Active 100 mg PO DAILY [place]-3 Acid Ethyl Esters [Lovaza] Med 11/13/19 09:00 Ordered 2 gm PO BID Ondansetron [Zofran] Med 11/12/19 20:32 Active 4 mg IVPUSH Q6H PRN Pantoprazole [ProTONIX] Med 11/13/19 08:08 Active 40 mg PO DAILY PRN Pharmacy to Dose - Warfarin Med 11/13/19 08:30 Ordered 1 dose .XX ASDIRECTED Potassium Chloride [Klor-Con 10] Med 11/13/19 08:10 Active 40 meq PO BIDMEALS Propylene Glycol/Peg 400 [Systane 0.3-0.4% Eye Drops] Med 11/13/19 09:00 Ordered 1 drop EYEBOTH BID Sodium Chloride 0.9% [Saline Flush] Med 11/12/19 20:38 Active 10 ml FLUSH ASDIRECTED PRN amLODIPine [Norvasc] Med 11/13/19 09:00 Active 10 mg PO DAILY cloNIDine [Catapres] Med 11/13/19 09:00 Active 0.2 mg PO BID hydroCHLOROthiazide Med 11/13/19 09:00 Active 25 mg PO DAILY metFORMIN [Glucophage] Med 11/13/19 18:00 Active 1,000 mg PO BIDMEALS Saline Lock Insert [OM.PC] Routine Oth 11/12/19 20:32 Ordered Resuscitation Status Routine Resus Stat 11/12/19 20:32 Ordered Medication Orders Acetaminophen (Tylenol) 650 mg PO Q4H PRN PRN Reason: Pain (Mild 1-3)/fever Last Admin: 11/13/19 08:15 Dose: 650 mg Acetaminophen (Tylenol Extra Strength) 1,000 mg PO BID [facility] Albuterol (Proventil Neb Soln) 2.5 mg NEB Q2H PRN PRN Reason: shortness of breath/wheezing Albuterol (Proventil Hfa) 0 gm INH Q4H PRN PRN Reason: Wheezing Albuterol/Ipratropium (Duoneb 3.0-0.5 Mg/3 Ml) 3 ml INH Q4H PRN PRN Reason: Wheezing Amlodipine Besylate (Norvasc) 10 mg PO DAILY [facility] Last Admin: 11/13/19 09:19 Dose: 10 mg Aspirin (Halfprin) 81 mg PO DAILY [facility] Last Admin: 11/13/19 09:20 Dose: 81 mg Calcium Carbonate (Calcium Carbonate/Vitamin D 1250 Mg-200 Unit) [facility] Cholecalciferol (Vitamin D3) 50 mcg PO BEDTIME [facility] Clonidine HCl (Catapres) 0.2 mg PO BID [facility] Last Admin: 11/13/19 09:21 Dose: 0.2 mg Enoxaparin Sodium (Lovenox) 60 mg SUBCUT Q12HR [facility] Last Admin: 11/13/19 09:19 Dose: 60 mg Admin: 11/13/19 05:45 Dose: Ferrous Sulfate (Ferrous Sulfate) [facility] Folic Acid (Folic Acid) 1 mg PO DAILY [facility] Last Admin: 11/13/19 09:20 Dose: 1 mg Furosemide (Lasix) 20 mg IVPUSH Q12H [facility] Last Admin: 11/13/19 08:16 Dose: 20 mg Admin: 11/12/19 21:37 Dose: 20 mg Hydrochlorothiazide (Hydrochlorothiazide) 25 mg PO DAILY [facility] Last Admin: 11/13/19 09:20 Dose: 25 mg Metformin HCl (Glucophage) 1,000 mg PO BIDMEALS [facility] Metoprolol Succinate (Toprol Xl) 100 mg PO DAILY [facility] Last Admin: 11/13/19 09:20 Dose: 100 mg Non-Formulary Medication (Ciclopirox/Ure/Camph/Menth/Euc [Ciclopirox 8% Treatment Kit]) 34.6 ml TP DAILY [facility] Non-Formulary Medication (Fenofibrate [Fenofibrate]) 160 mg PO .1800 [facility] Non-Formulary Medication (Magnesium Oxide [Magnesium]) 100 mg PO DAILY [facility] Non-Formulary Medication ([place]-3 Acid Ethyl Esters [Lovaza]) 2 gm PO BID [facility] Non-Formulary Medication (Propylene Glycol/Peg 400 [Systane 0.3-0.4% Eye Drops] ) 1 drop EYEBOTH BID [facility] Ondansetron HCl (Zofran) 4 mg IVPUSH Q6H PRN PRN Reason: Nausea/Vomiting Pantoprazole Sodium (Protonix) 40 mg PO DAILY PRN PRN Reason: reflux Potassium Chloride (Klor-Con 10) 40 meq PO BIDMEALS [facility] Last Admin: 11/13/19 09:20 Dose: 40 meq Sodium Chloride (Saline Flush) 10 ml FLUSH ASDIRECTED PRN PRN Reason: Keep Vein Open Last Admin: 11/13/19 08:17 Dose: 10 ml Warfarin Sodium (Pharmacy To Dose - Warfarin) 1 dose .XX ASDIRECTED [facility] Assessment/Plan Comment:: #. Probable acute exacerbation of diastolic congestive heart failure The patient has been short of breath. Brain natruretic peptide is elevated to about 500 Does have mild bilateral lower extremity edema #. Recent suspected pulmonary embolism Patient had CT scan in July 2019suggested possible pulmonary embolism Was placed on anticoagulation INR is subtherapeutic. #. Diabetes mellitus type 2 Monitor blood sugar before meals and at bedtime #. Hypertension Blood pressure is within acceptable limits #. Diarrhea Probably related to antibiotics #. Urinary tract infection Was on antibiotics as outpatient, Macrobid Plan: Admit patient to medical floor Subcutaneous Lovenox 60 mg every 12 hours Restart Coumadin, adjust dose to achieve therapeutic INR Nebulize with bronchodilators Intravenous Lasix 20 mg every 12 hours Consult physical therapy Consult occupational therapy Start patient on scheduled Tylenol
--- NOTE | 2019-11-13 09:43 | PCM.PN ---
- General Info Date of Service: 11/13/19 - Review of Systems General: Reports: Weakness, Malaise Pulmonary: Reports: Shortness of Breath Cardiovascular: Reports: No Symptoms Gastrointestinal: Reports: Diarrhea Musculoskeletal: Reports: No Symptoms Skin: Reports: No Symptoms - Patient Data Vitals - Most Recent: Last Vital Signs Temp 37.3 C 11/13/19 09:00 Pulse 102 H 11/13/19 09:20 Resp 22 H 11/13/19 09:00 BP 140/56 L 11/13/19 09:21 Pulse Ox 97 11/13/19 09:00 Weight - Most Recent: 67.812 kg I&O - Last 24 Hours: Intake & Output 11/12/19 11/13/19 11/13/19 22:59 06:59 14:59 Intake Total 25 Output Total 500 Balance -475 Lab Results Last 24 Hours: Laboratory Results - last 24 hr 11/12/19 11/12/19 11/12/19 Range/Units 18:45 18:45 18:45 WBC 10.7 H (5.0-10.0) 10^3/uL RBC 4.05 L (4.2-5.4) 10^6/uL Hgb 10.5 L D (12.0-16.0) g/dL Hct 32.2 L (37.0-47.0) % MCV 79.5 L (80-100) fL MCH 25.9 L (27.0-34.0) pg MCHC 32.6 L (33.0-35.0) g/dL Plt Count 135 L D (150-450) 10^3/uL Neut % (Auto) 81.4 H (42.2-75.2) % Lymph % (Auto) 5.0 L (20.5-50.1) % [place] % (Auto) 4.1 (2-8) % Eos % (Auto) 8.9 H (1.0-3.0) % Baso % (Auto) 0.6 (0.0-1.0) % PT (9.0-12.0) SEC INR (0.9-1.2) D-Dimer, Quantitative (0-400) ng/mL Sodium 137 (135-145) mmol/L Potassium 3.4 L (3.6-5.0) mmol/L Chloride 95 L (101-111) mmol/L Carbon Dioxide 32.0 H (21.0-31.0) mmol/L Anion Gap 13.4 BUN 25 H (7-18) mg/dL Creatinine 0.9 (0.6-1.3) mg/dL Est Cr Clr Drug Dosing 38.88 mL/min Estimated GFR (MDRD) 59 BUN/Creatinine Ratio 27.77 Glucose 138 H (74-105) mg/dL POC Glucose (83-110) mg/dl Lactic Acid 1.7 (0.5-2.0) mmol/L Calcium 9.5 (8.4-10.2) mg/dl Total Bilirubin 0.6 (0.2-1.0) mg/dL AST 32 (10-42) IU/L ALT 18 (10-60) IU/L Alkaline Phosphatase 31 L (42-121) IU/L Troponin I < 0.02 (0.00-0.02) ng/ml B-Natriuretic Peptide 449 H (0-100) pg/ml Total Protein 7.2 (6.7-8.2) g/dl Albumin 4.1 (3.2-5.5) g/dl Globulin 3.1 Albumin/Globulin Ratio 1.32 11/12/19 11/12/19 11/13/19 Range/Units 19:45 19:45 02:00 WBC (5.0-10.0) 10^3/uL RBC (4.2-5.4) 10^6/uL Hgb (12.0-16.0) g/dL Hct (37.0-47.0) % MCV (80-100) fL MCH (27.0-34.0) pg MCHC (33.0-35.0) g/dL Plt Count (150-450) 10^3/uL Neut % (Auto) (42.2-75.2) % Lymph % (Auto) (20.5-50.1) % [place] % (Auto) (2-8) % Eos % (Auto) (1.0-3.0) % Baso % (Auto) (0.0-1.0) % PT 12.0 (9.0-12.0) SEC INR 1.2 (0.9-1.2) D-Dimer, Quantitative 970 H (0-400) ng/mL Sodium (135-145) mmol/L Potassium (3.6-5.0) mmol/L Chloride (101-111) mmol/L Carbon Dioxide (21.0-31.0) mmol/L Anion Gap BUN (7-18) mg/dL Creatinine (0.6-1.3) mg/dL Est Cr Clr Drug Dosing mL/min Estimated GFR (MDRD) BUN/Creatinine Ratio Glucose (74-105) mg/dL POC Glucose (83-110) mg/dl Lactic Acid (0.5-2.0) mmol/L Calcium (8.4-10.2) mg/dl Total Bilirubin (0.2-1.0) mg/dL AST (10-42) IU/L ALT (10-60) IU/L Alkaline Phosphatase (42-121) IU/L Troponin I 0.02 (0.00-0.02) ng/ml B-Natriuretic Peptide (0-100) pg/ml Total Protein (6.7-8.2) g/dl Albumin (3.2-5.5) g/dl Globulin Albumin/Globulin Ratio 11/13/19 11/13/19 11/13/19 Range/Units 06:10 06:10 07:56 WBC (5.0-10.0) 10^3/uL RBC (4.2-5.4) 10^6/uL Hgb (12.0-16.0) g/dL Hct (37.0-47.0) % MCV (80-100) fL MCH (27.0-34.0) pg MCHC (33.0-35.0) g/dL Plt Count (150-450) 10^3/uL Neut % (Auto) (42.2-75.2) % Lymph % (Auto) (20.5-50.1) % [place] % (Auto) (2-8) % Eos % (Auto) (1.0-3.0) % Baso % (Auto) (0.0-1.0) % PT 12.7 H (9.0-12.0) SEC INR 1.3 H (0.9-1.2) D-Dimer, Quantitative (0-400) ng/mL Sodium 137 (135-145) mmol/L Potassium 3.1 L (3.6-5.0) mmol/L Chloride 94 L (101-111) mmol/L Carbon Dioxide 32.0 H (21.0-31.0) mmol/L Anion Gap 14.1 BUN 22 H (7-18) mg/dL Creatinine 0.9 (0.6-1.3) mg/dL Est Cr Clr Drug Dosing 40.45 mL/min Estimated GFR (MDRD) 59 BUN/Creatinine Ratio Glucose 129 H (74-105) mg/dL POC Glucose 119 H (83-110) mg/dl Lactic Acid (0.5-2.0) mmol/L Calcium 9.2 (8.4-10.2) mg/dl Total Bilirubin (0.2-1.0) mg/dL AST (10-42) IU/L ALT (10-60) IU/L Alkaline Phosphatase (42-121) IU/L Troponin I (0.00-0.02) ng/ml B-Natriuretic Peptide (0-100) pg/ml Total Protein (6.7-8.2) g/dl Albumin (3.2-5.5) g/dl Globulin Albumin/Globulin Ratio Med Orders - Current: Current Medications Acetaminophen (Tylenol) 650 mg PO Q4H PRN PRN Reason: Pain (Mild 1-3)/fever Last Admin: 11/13/19 08:15 Dose: 650 mg Acetaminophen (Tylenol Extra Strength) 1,000 mg PO BID [facility] Albuterol (Proventil Neb Soln) 2.5 mg NEB Q2H PRN PRN Reason: shortness of breath/wheezing Albuterol (Proventil Hfa) 0 gm INH Q4H PRN PRN Reason: Wheezing Albuterol/Ipratropium (Duoneb 3.0-0.5 Mg/3 Ml) 3 ml INH Q4H PRN PRN Reason: Wheezing Amlodipine Besylate (Norvasc) 10 mg PO DAILY [facility] Last Admin: 11/13/19 09:19 Dose: 10 mg Aspirin (Halfprin) 81 mg PO DAILY [facility] Last Admin: 11/13/19 09:20 Dose: 81 mg Calcium Carbonate (Calcium Carbonate/Vitamin D 1250 Mg-200 Unit) 1 tab PO WITHDINNER [facility] Cholecalciferol (Vitamin D3) 50 mcg PO BEDTIME [facility] Clonidine HCl (Catapres) 0.2 mg PO BID [facility] Last Admin: 11/13/19 09:21 Dose: 0.2 mg Enoxaparin Sodium (Lovenox) 60 mg SUBCUT Q12HR [facility] Last Admin: 11/13/19 09:19 Dose: 60 mg Ferrous Sulfate (Ferrous Sulfate) 325 mg PO WITHDINNER [facility] Folic Acid (Folic Acid) 1 mg PO DAILY [facility] Last Admin: 11/13/19 09:20 Dose: 1 mg Furosemide (Lasix) 20 mg IVPUSH Q12H [facility] Last Admin: 11/13/19 08:16 Dose: 20 mg Hydrochlorothiazide (Hydrochlorothiazide) 25 mg PO DAILY [facility] Last Admin: 11/13/19 09:20 Dose: 25 mg Metformin HCl (Glucophage) 1,000 mg PO BIDMEALS [facility] Metoprolol Succinate (Toprol Xl) 100 mg PO DAILY [facility] Last Admin: 11/13/19 09:20 Dose: 100 mg Non-Formulary Medication (Ciclopirox/Ure/Camph/Menth/Euc [Ciclopirox 8% Treatment Kit]) 34.6 ml TP DAILY [facility] Non-Formulary Medication (Fenofibrate [Fenofibrate]) 160 mg PO .1800 [facility] Non-Formulary Medication (Magnesium Oxide [Magnesium]) 100 mg PO DAILY [facility] Non-Formulary Medication ([place]-3 Acid Ethyl Esters [Lovaza]) 2 gm PO BID [facility] Non-Formulary Medication (Propylene Glycol/Peg 400 [Systane 0.3-0.4% Eye Drops] ) 1 drop EYEBOTH BID [facility] Ondansetron HCl (Zofran) 4 mg IVPUSH Q6H PRN PRN Reason: Nausea/Vomiting Pantoprazole Sodium (Protonix) 40 mg PO DAILY PRN PRN Reason: reflux Potassium Chloride (Klor-Con 10) 40 meq PO BIDMEALS [facility] Last Admin: 11/13/19 09:20 Dose: 40 meq Sodium Chloride (Saline Flush) 10 ml FLUSH ASDIRECTED PRN PRN Reason: Keep Vein Open Last Admin: 11/13/19 08:17 Dose: 10 ml Warfarin Sodium (Pharmacy To Dose - Warfarin) 1 dose .XX ASDIRECTED [facility] Discontinued Medications Enoxaparin Sodium (Lovenox) 60 mg SUBCUT Q12HR [facility] Last Admin: 11/13/19 00:06 Dose: 60 mg Enoxaparin Sodium (Lovenox) Confirm Administered Dose 60 mg .ROUTE .STK-MED ONE Stop: 11/13/19 00:05 Last Admin: 11/13/19 05:44 Dose: Not Given - Exam General: Alert, Oriented, Cooperative Neck: Supple Lungs: Normal Respiratory Effort, Decreased Breath Sounds, Rales Cardiovascular: Regular Rate, Regular Rhythm GI/Abdominal Exam: Normal Bowel Sounds, Soft, Non-Tender, No Organomegaly, No Distention, No Abnormal Bruit, No Mass, Pelvis Stable Back Exam: Normal Inspection, Full Range of Motion Sepsis Event Note - Evaluation Sepsis Screening Result: No Definite Risk - Focused Exam Vital Signs: Vital Signs Temp Pulse Pulse Resp BP BP Pulse Ox 11/13/19 09:21 140/56 L 11/13/19 09:20 102 H 140/56 L 11/13/19 09:19 140/56 L 11/13/19 09:00 37.3 C 102 H 22 H 140/56 L 97 11/12/19 23:28 37.1 C 82 20 149/56 H 96 Date Exam was Performed: 11/13/19 Time Exam was Performed: 09:41 - Problem List Review Problem List Initiated/Reviewed/Updated: Yes - My Orders Last 24 Hours: My Active Orders 11/12/19 20:32 Patient Status [ADT] Routine Oxygen Therapy [RC] PRN Up ad Yuilssa [RC] ASDIRECTED VTE/DVT Education [RC] PER UNIT ROUTINE Vital Signs [RC] 07,11,15,19,23,03 Acetaminophen [Tylenol] 650 mg PO Q4H PRN Albuterol [Proventil Neb Soln] 2.5 mg NEB Q2H PRN Ondansetron [Zofran] 4 mg IVPUSH Q6H PRN Saline Lock Insert [OM.PC] Routine Resuscitation Status Routine 11/12/19 20:35 Cardiac Monitoring [RC] 08,20 Intake and Output [RC] QSHIFT 11/12/19 20:38 RT Aerosol Therapy [RC] ASDIRECTED Sodium Chloride 0.9% [Saline Flush] 10 ml FLUSH ASDIRECTED PRN 11/12/19 21:00 Furosemide [Lasix] 20 mg IVPUSH Q12H 11/12/19 22:08 Urinary Catheter Assessment [RC] ASDIRECTED 11/12/19 22:15 Insert [place] Catheter [Insert Urinary Catheter] [OM.PC] Q24H 11/12/19 Dinner 2 Gram Sodium Diet [DIET] 11/13/19 00:00 Enoxaparin [Lovenox] 60 mg SUBCUT Q12HR 11/13/19 08:08 Albuterol [Proventil HFA] 0 gm INH Q4H PRN Albuterol/Ipratropium [DuoNeb 3.0-0.5 MG/3 ML] 3 ml INH Q4H PRN Pantoprazole [ProTONIX] 40 mg PO DAILY PRN 11/13/19 08:10 Potassium Chloride [Klor-Con 10] 40 meq PO BIDMEALS 11/13/19 08:15 Fenofibrate [Fenofibrate] 160 mg PO .1800 11/13/19 08:30 Pharmacy to Dose - Warfarin 1 dose .XX ASDIRECTED 11/13/19 08:53 Blood Glucose Check, Bedside [RC] QIDACANDBED 11/13/19 09:00 Aspirin [Halfprin] 81 mg PO DAILY Ciclopirox/Ure/Camph/Menth/Euc [Ciclopirox 8% Treatment Kit] 34.6 ml TP DAILY Folic Acid 1 mg PO DAILY Magnesium Oxide [Magnesium] 100 mg PO DAILY Metoprolol Succinate [Toprol XL] 100 mg PO DAILY [place]-3 Acid Ethyl Esters [Lovaza] 2 gm PO BID Propylene Glycol/Peg 400 [Systane 0.3-0.4% Eye Drops] 1 drop EYEBOTH BID amLODIPine [Norvasc] 10 mg PO DAILY cloNIDine [Catapres] 0.2 mg PO BID hydroCHLOROthiazide 25 mg PO DAILY 11/13/19 18:00 Calcium Carbonate/Vitamin D3 [Calcium Carbonate/Vitamin D 1250 MG-200 Unit] 1 tab PO WITHDINNER Ferrous Sulfate 325 mg PO WITHDINNER metFORMIN [Glucophage] 1,000 mg PO BIDMEALS 11/13/19 21:00 Acetaminophen [Tylenol Extra Strength] 1,000 mg PO BID Cholecalciferol (Vitamin D3) [Vitamin D3] 50 mcg PO BEDTIME 11/14/19 05:11 BASIC METABOLIC PANEL,BMP [CHEM] AM CBC W/O DIFF,HEMOGRAM [HEME] AM 11/14/19 08:11 B-TYPE NATRIURETIC PEPTIDE,BNP [CHEM] Routine - Plan Plan:: #. Probable acute exacerbation of diastolic congestive heart failure The patient has been short of breath. Brain natruretic peptide is elevated to about 500 Does have mild bilateral lower extremity edema #. Recent suspected pulmonary embolism Patient had CT scan in July 2019suggested possible pulmonary embolism Was placed on anticoagulation INR is subtherapeutic. start patient on lovenox every 12 hours #. Diabetes mellitus type 2 Monitor blood sugar before meals and at bedtime #. Hypertension Blood pressure is within acceptable limits #. Diarrhea Probably related to antibiotics No diarrhea since admission #. Urinary tract infection Was on antibiotics as outpatient, Macrobid Restart patient on macrobid Plan: continue current management
[2019-11-13] MEDS: Insulin Lispro 100 Units/ML 3 ML Vial SUBCUT SCH ×2 (12:25→17:07)
[2019-11-13] MEDS: metFORMIN 500 MG Tab PO SCH ×2 (12:26→17:08)
[2019-11-13] MEDS: Nitrofurantoin Monohydrate/Macrocrystalline 100 MG Cap PO SCH ×2 (12:26→20:52)
[2019-11-13] MEDS ORDERED: Acetaminophen/oxyCODONE 325-5 MG Tab PO PRN (13:56)
[2019-11-13] MEDS ORDERED: Warfarin 5 MG Tab PO ONE (14:00)
[2019-11-13] MEDS: Acetaminophen/oxyCODONE 325-5 MG Tab PO PRN ×2 (14:34→20:58)
[2019-11-13] MEDS: Ferrous Sulfate 325 MG Tab PO SCH (17:08)
[2019-11-13] MEDS: Calcium Carbonate/Vitamin D3 1250 MG-200 Unit Tab PO SCH (17:08)
[2019-11-13] MEDS: Cholecalciferol (Vitamin D3) 25 MCG Tab PO SCH (20:52)
[2019-11-13] MEDS: Acetaminophen 500 MG Tab PO SCH (20:57)
[2019-11-13] MEDS: Carboxymethylcellulose Sodium 1% Ophth Gel 0.4 ML UD EYEBOTH SCH (20:58)
[2019-11-14 06:45] LABS: ANION GAP 16.2
[2019-11-14] MEDS: Acetaminophen/oxyCODONE 325-5 MG Tab PO PRN (09:18)
[2019-11-14] MEDS: metFORMIN 500 MG Tab PO SCH ×2 (09:34→17:28)
[2019-11-14] MEDS: Potassium Chloride 10 MEQ Tab.ER PO SCH ×2 (09:35→17:28)
[2019-11-14] MEDS: amLODIPine 5 MG Tab PO SCH (09:35)
[2019-11-14] MEDS: Folic Acid 1 MG Tab PO SCH (09:35)
[2019-11-14] MEDS: Hydrochlorothiazide 25 MG Tab PO SCH (09:36)
[2019-11-14] MEDS: cloNIDine 0.1 MG Tab PO SCH ×2 (09:36→21:03)
[2019-11-14] MEDS: Furosemide 20 MG/2 ML VIAL IVPUSH SCH ×2 (09:37→21:07)
[2019-11-14] MEDS: Enoxaparin 60 MG/0.6 ML Syringe SUBCUT SCH ×2 (09:37→21:05)
[2019-11-14] MEDS: Metoprolol Succinate 50 MG Tab.ER PO SCH (09:37)
[2019-11-14] MEDS: Nitrofurantoin Monohydrate/Macrocrystalline 100 MG Cap PO SCH ×2 (09:37→21:07)
[2019-11-14] MEDS: Aspirin 81 MG Tab.EC PO SCH (09:37)
[2019-11-14] MEDS: Sodium Chloride 0.9% 10 ML Syringe FLUSH PRN (09:38)
[2019-11-14] MEDS: Insulin Lispro 100 Units/ML 3 ML Vial SUBCUT SCH ×3 (09:47→17:20)
[2019-11-14] MEDS: Acetaminophen 500 MG Tab PO SCH ×2 (09:47→21:05)
[2019-11-14] MEDS: Carboxymethylcellulose Sodium 1% Ophth Gel 0.4 ML UD EYEBOTH SCH ×2 (09:53→21:08)
[2019-11-14] MEDS ORDERED: oxyCODONE 5 MG Tab PO PRN (10:08)
--- NOTE | 2019-11-14 10:13 | PCM.PN ---
- General Info Date of Service: 11/14/19 Subjective Update: Patient is complaining of pain right shoulder. Also complains of neck pain. These are chronic but seemed to have worsened Associated generalized body malaise and weakness. Continues to have some shortness of breath - Review of Systems General: Reports: Weakness, Other (Generalized aches and pains) Pulmonary: Reports: No Symptoms Cardiovascular: Reports: No Symptoms Gastrointestinal: Reports: No Symptoms Musculoskeletal: Reports: Shoulder Pain - Patient Data Vitals - Most Recent: Last Vital Signs Temp 37.6 C 11/14/19 08:00 Pulse 63 11/14/19 09:37 Resp 18 11/14/19 08:00 BP 152/60 H 11/14/19 09:37 Pulse Ox 91 L 11/14/19 08:00 Weight - Most Recent: 69.127 kg I&O - Last 24 Hours: Intake & Output 11/13/19 11/14/19 11/14/19 22:59 06:59 14:59 Intake Total 1690 300 Output Total 1125 1275 Balance 565 -975 Lab Results Last 24 Hours: Laboratory Results - last 24 hr 11/13/19 11/13/19 11/13/19 Range/Units 11:37 16:53 20:50 WBC (5.0-10.0) 10^3/uL RBC (4.2-5.4) 10^6/uL Hgb (12.0-16.0) g/dL Hct (37.0-47.0) % MCV (80-100) fL MCH (27.0-34.0) pg MCHC (33.0-35.0) g/dL Plt Count (150-450) 10^3/uL PT (9.0-12.0) SEC INR (0.9-1.2) Sodium (135-145) mmol/L Potassium (3.6-5.0) mmol/L Chloride (101-111) mmol/L Carbon Dioxide (21.0-31.0) mmol/L Anion Gap BUN (7-18) mg/dL Creatinine (0.6-1.3) mg/dL Est Cr Clr Drug Dosing mL/min Estimated GFR (MDRD) Glucose (74-105) mg/dL POC Glucose 347 H 247 H 172 H (83-110) mg/dl Calcium (8.4-10.2) mg/dl B-Natriuretic Peptide (0-100) pg/ml 11/14/19 11/14/19 11/14/19 Range/Units 06:15 06:15 06:15 WBC 8.4 (5.0-10.0) 10^3/uL RBC 3.86 L (4.2-5.4) 10^6/uL Hgb 9.9 L (12.0-16.0) g/dL Hct 31.2 L (37.0-47.0) % MCV 80.8 (80-100) fL MCH 25.6 L (27.0-34.0) pg MCHC 31.7 L (33.0-35.0) g/dL Plt Count 191 (150-450) 10^3/uL PT (9.0-12.0) SEC INR (0.9-1.2) Sodium 136 (135-145) mmol/L Potassium 4.2 (3.6-5.0) mmol/L Chloride 94 L (101-111) mmol/L Carbon Dioxide 30.0 (21.0-31.0) mmol/L Anion Gap 16.2 BUN 27 H (7-18) mg/dL Creatinine 1.1 (0.6-1.3) mg/dL Est Cr Clr Drug Dosing 33.09 mL/min Estimated GFR (MDRD) 47 Glucose 148 H (74-105) mg/dL POC Glucose (83-110) mg/dl Calcium 9.6 (8.4-10.2) mg/dl B-Natriuretic Peptide 395 H (0-100) pg/ml 11/14/19 11/14/19 Range/Units 06:15 07:58 WBC (5.0-10.0) 10^3/uL RBC (4.2-5.4) 10^6/uL Hgb (12.0-16.0) g/dL Hct (37.0-47.0) % MCV (80-100) fL MCH (27.0-34.0) pg MCHC (33.0-35.0) g/dL Plt Count (150-450) 10^3/uL PT 12.2 H (9.0-12.0) SEC INR 1.2 (0.9-1.2) Sodium (135-145) mmol/L Potassium (3.6-5.0) mmol/L Chloride (101-111) mmol/L Carbon Dioxide (21.0-31.0) mmol/L Anion Gap BUN (7-18) mg/dL Creatinine (0.6-1.3) mg/dL Est Cr Clr Drug Dosing mL/min Estimated GFR (MDRD) Glucose (74-105) mg/dL POC Glucose 146 H (83-110) mg/dl Calcium (8.4-10.2) mg/dl B-Natriuretic Peptide (0-100) pg/ml Med Orders - Current: Current Medications Acetaminophen (Tylenol) 650 mg PO Q4H PRN PRN Reason: Pain (Mild 1-3)/fever Last Admin: 11/13/19 12:26 Dose: 650 mg Acetaminophen (Tylenol Extra Strength) 1,000 mg PO BID [facility] Last Admin: 11/14/19 09:47 Dose: Not Given Albuterol (Proventil Neb Soln) 2.5 mg NEB Q2H PRN PRN Reason: shortness of breath/wheezing Albuterol (Proventil Hfa) 0 gm INH Q4H PRN PRN Reason: Wheezing Albuterol/Ipratropium (Duoneb 3.0-0.5 Mg/3 Ml) 3 ml INH Q4H PRN PRN Reason: Wheezing Last Admin: 11/14/19 03:38 Dose: 3 ml Amlodipine Besylate (Norvasc) 10 mg PO DAILY [facility] Last Admin: 11/14/19 09:35 Dose: 10 mg Artificial Tears (Refresh Celluvisc) 1 each EYEBOTH BID [facility] Last Admin: 11/14/19 09:53 Dose: 1 each Aspirin (Halfprin) 81 mg PO DAILY [facility] Last Admin: 11/14/19 09:37 Dose: 81 mg Calcium Carbonate (Calcium Carbonate/Vitamin D 1250 Mg-200 Unit) 1 tab PO WITHDINNER [facility] Last Admin: 11/13/19 17:08 Dose: 1 tab Cholecalciferol (Vitamin D3) 50 mcg PO BEDTIME [facility] Last Admin: 11/13/19 20:52 Dose: 50 mcg Clonidine HCl (Catapres) 0.2 mg PO BID [facility] Last Admin: 11/14/19 09:36 Dose: 0.2 mg Enoxaparin Sodium (Lovenox) 60 mg SUBCUT Q12HR [facility] Last Admin: 11/14/19 09:37 Dose: 60 mg Ferrous Sulfate (Ferrous Sulfate) 325 mg PO WITHDINNER [facility] Last Admin: 11/13/19 17:08 Dose: 325 mg Folic Acid (Folic Acid) 1 mg PO DAILY [facility] Last Admin: 11/14/19 09:35 Dose: 1 mg Furosemide (Lasix) 20 mg IVPUSH Q12H [facility] Last Admin: 11/14/19 09:37 Dose: 20 mg Hydrochlorothiazide (Hydrochlorothiazide) 25 mg PO DAILY [facility] Last Admin: 11/14/19 09:36 Dose: 25 mg Insulin Human Lispro (Humalog) 0 unit SUBCUT TIDMEALS [facility]; Protocol Last Admin: 11/14/19 09:47 Dose: Not Given Magnesium Oxide (Magnesium Oxide) 250 mg PO WITHBREAKFAST [facility] Last Admin: 11/14/19 09:35 Dose: 250 mg Metformin HCl (Glucophage) 1,000 mg PO BIDMEALS [facility] Last Admin: 11/14/19 09:34 Dose: 1,000 mg Metoprolol Succinate (Toprol Xl) 100 mg PO DAILY [facility] Last Admin: 11/14/19 09:37 Dose: 100 mg Nitrofurantoin Macrocrystals (Macrobid) 100 mg PO BID [facility] Last Admin: 11/14/19 09:37 Dose: 100 mg Ondansetron HCl (Zofran) 4 mg IVPUSH Q6H PRN PRN Reason: Nausea/Vomiting Oxycodone/Acetaminophen (Percocet 325-5 Mg) 2 tab PO Q4H PRN PRN Reason: Pain (severe 7-10) Pantoprazole Sodium (Protonix) 40 mg PO DAILY PRN PRN Reason: reflux Potassium Chloride (Klor-Con 10) 40 meq PO BIDMEALS [facility] Last Admin: 11/14/19 09:35 Dose: 40 meq Sodium Chloride (Saline Flush) 10 ml FLUSH ASDIRECTED PRN PRN Reason: Keep Vein Open Last Admin: 11/14/19 09:38 Dose: 10 ml Warfarin Sodium (Pharmacy To Dose - Warfarin) 1 dose .XX ASDIRECTED [facility] Discontinued Medications Enoxaparin Sodium (Lovenox) 60 mg SUBCUT Q12HR [facility] Last Admin: 11/13/19 00:06 Dose: 60 mg Enoxaparin Sodium (Lovenox) Confirm Administered Dose 60 mg .ROUTE .STK-MED ONE Stop: 11/13/19 00:05 Last Admin: 11/13/19 05:44 Dose: Not Given Non-Formulary Medication (Ciclopirox/Ure/Camph/Menth/Euc [Ciclopirox 8% Treatment Kit]) 34.6 ml TP DAILY [facility] Last Admin: 11/13/19 11:47 Dose: Not Given Non-Formulary Medication (Fenofibrate [Fenofibrate]) 160 mg PO .1800 [facility] Non-Formulary Medication (Magnesium Oxide [Magnesium]) 100 mg PO DAILY [facility] Last Admin: 11/13/19 11:47 Dose: Not Given Non-Formulary Medication ([place]-3 Acid Ethyl Esters [Lovaza]) 2 gm PO BID [facility] Last Admin: 11/13/19 11:21 Dose: Not Given Non-Formulary Medication (Propylene Glycol/Peg 400 [Systane 0.3-0.4% Eye Drops] ) 1 drop EYEBOTH BID [facility] Last Admin: 11/13/19 11:22 Dose: Not Given Oxycodone/Acetaminophen (Percocet 325-5 Mg) 1 tab PO Q4H PRN PRN Reason: Pain (moderate 4-6) Last Admin: 11/14/19 09:18 Dose: 1 tab Warfarin Sodium (Coumadin) 5 mg PO ONETIME ONE Stop: 11/13/19 14:01 Last Admin: 11/13/19 13:28 Dose: 5 mg - Exam General: Alert, Oriented, Cooperative Neck: Supple Lungs: Normal Respiratory Effort, Decreased Breath Sounds Cardiovascular: Regular Rate, Regular Rhythm GI/Abdominal Exam: Normal Bowel Sounds, Soft, Non-Tender, No Organomegaly, No Distention, No Abnormal Bruit, No Mass, Pelvis Stable Sepsis Event Note - Evaluation Sepsis Screening Result: No Definite Risk - Focused Exam Vital Signs: Vital Signs Temp Pulse Pulse Resp BP BP Pulse Ox 11/14/19 09:37 63 152/60 H 11/14/19 09:36 152/60 H 11/14/19 09:35 152/60 H 11/14/19 08:00 37.6 C 63 18 152/60 H 91 L 11/14/19 03:40 64 11/14/19 03:00 36.6 C 62 20 140/51 L 94 L Pulse Ox 11/14/19 09:37 11/14/19 09:36 11/14/19 09:35 11/14/19 08:00 11/14/19 03:40 97 11/14/19 03:00 Date Exam was Performed: 11/14/19 Time Exam was Performed: 10:10 - Problem List Review Problem List Initiated/Reviewed/Updated: Yes - My Orders Last 24 Hours: My Active Orders 11/13/19 11:00 Nitrofurantoin [place]/Macrocryst [Macrobid] 100 mg PO BID 11/13/19 12:00 Insulin Lispro [HumaLOG] See Protocol SUBCUT TIDMEALS metFORMIN [Glucophage] 1,000 mg PO BIDMEALS 11/13/19 13:56 Acetaminophen/oxyCODONE [Percocet 325-5 MG] 2 tab PO Q4H PRN 11/13/19 18:00 Calcium Carbonate/Vitamin D3 [Calcium Carbonate/Vitamin D 1250 MG-200 Unit] 1 tab PO WITHDINNER Ferrous Sulfate 325 mg PO WITHDINNER 11/13/19 21:00 Acetaminophen [Tylenol Extra Strength] 1,000 mg PO BID Carboxymethylcellulose Sodium [Refresh Celluvisc] 1 each EYEBOTH BID Cholecalciferol (Vitamin D3) [Vitamin D3] 50 mcg PO BEDTIME 11/14/19 08:00 Magnesium Oxide 250 mg PO WITHBREAKFAST 11/14/19 09:16 OT Evaluation and Treatment [CONS] Routine PT Evaluation and Treatment [CONS] Routine 11/14/19 10:08 oxyCODONE 5 mg PO Q4H PRN 11/14/19 10:15 Lidocaine 5% [Lidoderm 5%] 700 mg TOP Q24H 11/15/19 05:11 BASIC METABOLIC PANEL,BMP [CHEM] AM CBC W/O DIFF,HEMOGRAM [HEME] AM - Plan Plan:: #. Probable acute exacerbation of diastolic congestive heart failure The patient has been short of breath. Brain natruretic peptide was elevated to about 500 Has mild bilateral lower extremity edema #. Recent suspected pulmonary embolism Patient had CT scan in July 2019suggested possible pulmonary embolism Was placed on anticoagulation INR is subtherapeutic. start patient on lovenox every 12 hours Restart coumadin #. Diabetes mellitus type 2 Monitor blood sugar before meals and at bedtime #. Hypertension Blood pressure is within acceptable limits #. Diarrhea Resolved #. Urinary tract infection Was on antibiotics as outpatient, Macrobid Restart patient on macrobid #. Generalized aches/pain Has right shoulder arthritis Lidoderm patch to right shoulder Oxycodone
[2019-11-14] MEDS ORDERED: Lidocaine 5% 700 MG Patch TOP SCH (10:30)
[2019-11-14] MEDS ORDERED: Warfarin 5 MG Tab PO ONE (14:00)
[2019-11-14] MEDS: Calcium Carbonate/Vitamin D3 1250 MG-200 Unit Tab PO SCH (17:20)
[2019-11-14] MEDS: Ferrous Sulfate 325 MG Tab PO SCH (17:20)
[2019-11-14] MEDS ORDERED: traMADol 50 MG Tab PO PRN (17:48)
[2019-11-14] MEDS: Cholecalciferol (Vitamin D3) 25 MCG Tab PO SCH (21:07)
[2019-11-14] MEDS: THERAGESIC TOP PRN (21:19)
[2019-11-15 06:51] LABS: ANION GAP 13.7
[2019-11-15] MEDS: Aspirin 81 MG Tab.EC PO SCH (08:50)
[2019-11-15] MEDS: Hydrochlorothiazide 25 MG Tab PO SCH (08:50)
[2019-11-15] MEDS: Nitrofurantoin Monohydrate/Macrocrystalline 100 MG Cap PO SCH ×2 (08:51→21:17)
[2019-11-15] MEDS: metFORMIN 500 MG Tab PO SCH ×2 (08:51→18:03)
[2019-11-15] MEDS: Potassium Chloride 10 MEQ Tab.ER PO SCH ×2 (08:51→18:04)
[2019-11-15] MEDS: cloNIDine 0.1 MG Tab PO SCH ×2 (08:53→21:18)
[2019-11-15] MEDS: Acetaminophen 500 MG Tab PO SCH ×2 (08:54→21:17)
[2019-11-15] MEDS: Metoprolol Succinate 50 MG Tab.ER PO SCH (08:54)
[2019-11-15] MEDS: Folic Acid 1 MG Tab PO SCH (08:54)
[2019-11-15] MEDS: Furosemide 20 MG/2 ML VIAL IVPUSH SCH (08:55)
[2019-11-15] MEDS: Enoxaparin 60 MG/0.6 ML Syringe SUBCUT SCH ×2 (08:55→21:18)
[2019-11-15] MEDS: amLODIPine 5 MG Tab PO SCH (08:55)
[2019-11-15] MEDS: Insulin Lispro 100 Units/ML 3 ML Vial SUBCUT SCH ×3 (08:56→18:04)
[2019-11-15] MEDS: THERAGESIC TOP PRN (08:59)
[2019-11-15] MEDS: Sodium Chloride 0.9% 10 ML Syringe FLUSH PRN (09:01)
--- NOTE | 2019-11-15 10:44 | PCM.PN ---
- General Info Date of Service: 11/15/19 - Review of Systems General: Reports: Weakness, Malaise Pulmonary: Reports: No Symptoms Cardiovascular: Reports: No Symptoms Gastrointestinal: Reports: No Symptoms - Patient Data Vitals - Most Recent: Last Vital Signs Temp 37.1 C 11/15/19 07:00 Pulse 67 11/15/19 08:54 Resp 20 11/15/19 07:00 BP 159/59 H 11/15/19 08:55 Pulse Ox 93 L 11/15/19 08:00 Weight - Most Recent: 69.037 kg I&O - Last 24 Hours: Intake & Output 11/14/19 11/15/19 11/15/19 22:59 06:59 14:59 Intake Total 790 200 520 Output Total 550 950 Balance 240 -750 520 Lab Results Last 24 Hours: Laboratory Results - last 24 hr 11/14/19 11/14/19 11/14/19 Range/Units 11:52 17:06 19:33 WBC (5.0-10.0) 10^3/uL RBC (4.2-5.4) 10^6/uL Hgb (12.0-16.0) g/dL Hct (37.0-47.0) % MCV (80-100) fL MCH (27.0-34.0) pg MCHC (33.0-35.0) g/dL Plt Count (150-450) 10^3/uL ESR 21 H (0-20) mm/hr PT (9.0-12.0) SEC INR (0.9-1.2) Sodium (135-145) mmol/L Potassium (3.6-5.0) mmol/L Chloride (101-111) mmol/L Carbon Dioxide (21.0-31.0) mmol/L Anion Gap BUN (7-18) mg/dL Creatinine (0.6-1.3) mg/dL Est Cr Clr Drug Dosing mL/min Estimated GFR (MDRD) Glucose (74-105) mg/dL POC Glucose 175 H 116 H (83-110) mg/dl Calcium (8.4-10.2) mg/dl Troponin I (0.00-0.02) ng/ml C-Reactive Protein (0.0-1.3) mg/dL 11/14/19 11/14/19 11/14/19 Range/Units 19:33 19:33 20:56 WBC (5.0-10.0) 10^3/uL RBC (4.2-5.4) 10^6/uL Hgb (12.0-16.0) g/dL Hct (37.0-47.0) % MCV (80-100) fL MCH (27.0-34.0) pg MCHC (33.0-35.0) g/dL Plt Count (150-450) 10^3/uL ESR (0-20) mm/hr PT (9.0-12.0) SEC INR (0.9-1.2) Sodium (135-145) mmol/L Potassium (3.6-5.0) mmol/L Chloride (101-111) mmol/L Carbon Dioxide (21.0-31.0) mmol/L Anion Gap BUN (7-18) mg/dL Creatinine (0.6-1.3) mg/dL Est Cr Clr Drug Dosing mL/min Estimated GFR (MDRD) Glucose (74-105) mg/dL POC Glucose 150 H (83-110) mg/dl Calcium (8.4-10.2) mg/dl Troponin I < 0.02 (0.00-0.02) ng/ml C-Reactive Protein 10.0 H (0.0-1.3) mg/dL 11/15/19 11/15/19 11/15/19 Range/Units 02:10 06:25 06:25 WBC 7.0 (5.0-10.0) 10^3/uL RBC 3.98 L (4.2-5.4) 10^6/uL Hgb 10.1 L (12.0-16.0) g/dL Hct 32.3 L (37.0-47.0) % MCV 81.2 (80-100) fL MCH 25.4 L (27.0-34.0) pg MCHC 31.3 L (33.0-35.0) g/dL Plt Count 205 (150-450) 10^3/uL ESR (0-20) mm/hr PT (9.0-12.0) SEC INR (0.9-1.2) Sodium 136 (135-145) mmol/L Potassium 3.7 (3.6-5.0) mmol/L Chloride 94 L (101-111) mmol/L Carbon Dioxide 32.0 H (21.0-31.0) mmol/L Anion Gap 13.7 BUN 25 H (7-18) mg/dL Creatinine 1.0 (0.6-1.3) mg/dL Est Cr Clr Drug Dosing 36.40 mL/min Estimated GFR (MDRD) 52 Glucose 137 H (74-105) mg/dL POC Glucose (83-110) mg/dl Calcium 9.6 (8.4-10.2) mg/dl Troponin I < 0.02 (0.00-0.02) ng/ml C-Reactive Protein (0.0-1.3) mg/dL 11/15/19 11/15/19 Range/Units 06:25 07:49 WBC (5.0-10.0) 10^3/uL RBC (4.2-5.4) 10^6/uL Hgb (12.0-16.0) g/dL Hct (37.0-47.0) % MCV (80-100) fL MCH (27.0-34.0) pg MCHC (33.0-35.0) g/dL Plt Count (150-450) 10^3/uL ESR (0-20) mm/hr PT 12.7 H (9.0-12.0) SEC INR 1.3 H (0.9-1.2) Sodium (135-145) mmol/L Potassium (3.6-5.0) mmol/L Chloride (101-111) mmol/L Carbon Dioxide (21.0-31.0) mmol/L Anion Gap BUN (7-18) mg/dL Creatinine (0.6-1.3) mg/dL Est Cr Clr Drug Dosing mL/min Estimated GFR (MDRD) Glucose (74-105) mg/dL POC Glucose 145 H (83-110) mg/dl Calcium (8.4-10.2) mg/dl Troponin I (0.00-0.02) ng/ml C-Reactive Protein (0.0-1.3) mg/dL [place] Results Last 24 Hours: Microbiology 11/14/19 14:25 Influenza Type A Antigen Screen - Final Nasopharyngeal Swab NEGATIVE INFLUENZA A VIRUS AG REFERENCE RANGE: NEGATIVE Influenza Type B Antigen Screen - Final NEGATIVE INFLUENZA B VIRUS AG REFERENCE RANGE: NEGATIVE Med Orders - Current: Current Medications Acetaminophen (Tylenol) 650 mg PO Q4H PRN PRN Reason: Pain (Mild 1-3)/fever Last Admin: 11/13/19 12:26 Dose: 650 mg Acetaminophen (Tylenol Extra Strength) 1,000 mg PO BID [facility] Last Admin: 11/15/19 08:54 Dose: 1,000 mg Albuterol (Proventil Neb Soln) 2.5 mg NEB Q2H PRN PRN Reason: shortness of breath/wheezing Albuterol (Proventil Hfa) 0 gm INH Q4H PRN PRN Reason: Wheezing Albuterol/Ipratropium (Duoneb 3.0-0.5 Mg/3 Ml) 3 ml INH Q4H PRN PRN Reason: Wheezing Last Admin: 11/14/19 03:38 Dose: 3 ml Amlodipine Besylate (Norvasc) 10 mg PO DAILY [facility] Last Admin: 11/15/19 08:55 Dose: 10 mg Artificial Tears (Refresh Celluvisc) 1 each EYEBOTH BID [facility] Last Admin: 11/14/19 21:08 Dose: 1 each Aspirin (Halfprin) 81 mg PO DAILY [facility] Last Admin: 11/15/19 08:50 Dose: 81 mg Calcium Carbonate (Calcium Carbonate/Vitamin D 1250 Mg-200 Unit) 1 tab PO WITHDINNER [facility] Last Admin: 11/14/19 17:20 Dose: Not Given Cholecalciferol (Vitamin D3) 50 mcg PO BEDTIME [facility] Last Admin: 11/14/19 21:07 Dose: 50 mcg Clonidine HCl (Catapres) 0.2 mg PO BID [facility] Last Admin: 11/15/19 08:53 Dose: 0.2 mg Enoxaparin Sodium (Lovenox) 60 mg SUBCUT Q12HR [facility] Last Admin: 11/15/19 08:55 Dose: 60 mg Ferrous Sulfate (Ferrous Sulfate) 325 mg PO WITHDINNER [facility] Last Admin: 11/14/19 17:20 Dose: Not Given Folic Acid (Folic Acid) 1 mg PO DAILY [facility] Last Admin: 11/15/19 08:54 Dose: 1 mg Furosemide (Lasix) 40 mg PO DAILY [facility] Hydrochlorothiazide (Hydrochlorothiazide) 25 mg PO DAILY [facility] Last Admin: 11/15/19 08:50 Dose: 25 mg Insulin Human Lispro (Humalog) 0 unit SUBCUT TIDMEALS [facility]; Protocol Last Admin: 11/15/19 08:56 Dose: Not Given Magnesium Oxide (Magnesium Oxide) 250 mg PO WITHBREAKFAST [facility] Last Admin: 11/15/19 08:50 Dose: 250 mg Metformin HCl (Glucophage) 1,000 mg PO BIDMEALS [facility] Last Admin: 11/15/19 08:51 Dose: 1,000 mg Metoprolol Succinate (Toprol Xl) 100 mg PO DAILY [facility] Last Admin: 11/15/19 08:54 Dose: 100 mg Miscellaneous Information (Remove Patch) 1 ea TRDERM Q24H [facility] Last Admin: 11/14/19 22:06 Dose: Not Given Nitrofurantoin Macrocrystals (Macrobid) 100 mg PO BID [facility] Last Admin: 11/15/19 08:51 Dose: 100 mg Theragesic Cream (Own Med) 0 each TOP Q4H PRN PRN Reason: Pain Last Admin: 11/15/19 08:59 Dose: 1 each Ondansetron HCl (Zofran) 4 mg IVPUSH Q6H PRN PRN Reason: Nausea/Vomiting Pantoprazole Sodium (Protonix) 40 mg PO DAILY PRN PRN Reason: reflux Potassium Chloride (Klor-Con 10) 40 meq PO BIDMEALS [facility] Last Admin: 11/15/19 08:51 Dose: 40 meq Sodium Chloride (Saline Flush) 10 ml FLUSH ASDIRECTED PRN PRN Reason: Keep Vein Open Last Admin: 11/15/19 09:01 Dose: 10 ml Tramadol HCl (Ultram) 50 mg PO Q4H PRN PRN Reason: Pain Last Admin: 11/15/19 03:14 Dose: 50 mg Warfarin Sodium (Pharmacy To Dose - Warfarin) 1 dose .XX ASDIRECTED [facility] Warfarin Sodium (Coumadin) 7.5 mg PO ONETIME ONE Stop: 11/15/19 14:01 Discontinued Medications Enoxaparin Sodium (Lovenox) 60 mg SUBCUT Q12HR [facility] Last Admin: 11/13/19 00:06 Dose: 60 mg Enoxaparin Sodium (Lovenox) Confirm Administered Dose 60 mg .ROUTE .STK-MED ONE Stop: 11/13/19 00:05 Last Admin: 11/13/19 05:44 Dose: Not Given Furosemide (Lasix) 20 mg IVPUSH Q12H [facility] Last Admin: 11/15/19 08:55 Dose: 20 mg Lidocaine (Lidoderm 5%) 700 mg TOP Q24H [facility] Last Admin: 11/14/19 10:34 Dose: 700 mg Non-Formulary Medication (Ciclopirox/Ure/Camph/Menth/Euc [Ciclopirox 8% Treatment Kit]) 34.6 ml TP DAILY [facility] Last Admin: 11/13/19 11:47 Dose: Not Given Non-Formulary Medication (Fenofibrate [Fenofibrate]) 160 mg PO .1800 [facility] Non-Formulary Medication (Magnesium Oxide [Magnesium]) 100 mg PO DAILY [facility] Last Admin: 11/13/19 11:47 Dose: Not Given Non-Formulary Medication ([place]-3 Acid Ethyl Esters [Lovaza]) 2 gm PO BID [facility] Last Admin: 11/13/19 11:21 Dose: Not Given Non-Formulary Medication (Propylene Glycol/Peg 400 [Systane 0.3-0.4% Eye Drops] ) 1 drop EYEBOTH BID [facility] Last Admin: 11/13/19 11:22 Dose: Not Given Oxycodone HCl (Oxycodone) 5 mg PO Q4H PRN PRN Reason: Pain Last Admin: 11/14/19 12:15 Dose: 5 mg Oxycodone/Acetaminophen (Percocet 325-5 Mg) 1 tab PO Q4H PRN PRN Reason: Pain (moderate 4-6) Last Admin: 11/14/19 09:18 Dose: 1 tab Oxycodone/Acetaminophen (Percocet 325-5 Mg) 2 tab PO Q4H PRN PRN Reason: Pain (severe 7-10) Warfarin Sodium (Coumadin) 5 mg PO ONETIME ONE Stop: 11/13/19 14:01 Last Admin: 11/13/19 13:28 Dose: 5 mg Warfarin Sodium (Coumadin) 5 mg PO ONETIME ONE Stop: 11/14/19 14:01 Last Admin: 11/14/19 15:23 Dose: 5 mg - Exam Quality Assessment: Supplemental Oxygen General: Alert, Oriented, Cooperative Neck: Supple Lungs: Decreased Breath Sounds Cardiovascular: Regular Rate, Regular Rhythm Sepsis Event Note - Evaluation Sepsis Screening Result: No Definite Risk - Focused Exam Vital Signs: Vital Signs Temp Pulse Pulse Resp BP BP Pulse Ox 11/15/19 08:55 159/59 H 11/15/19 08:54 67 159/59 H 11/15/19 08:53 159/59 H 11/15/19 08:00 11/15/19 07:00 37.1 C 67 20 159/59 H 97 11/15/19 03:00 37.0 C 66 18 140/74 95 11/14/19 23:00 36.4 C 55 L 18 145/44 H 92 L Pulse Ox 11/15/19 08:55 11/15/19 08:54 11/15/19 08:53 11/15/19 08:00 93 L 11/15/19 07:00 11/15/19 03:00 11/14/19 23:00 Date Exam was Performed: 11/15/19 Time Exam was Performed: 10:40 - Problem List Review Problem List Initiated/Reviewed/Updated: Yes - My Orders Last 24 Hours: My Active Orders 11/14/19 11:13 K Pad [Heat Therapy] [OM.PC] Routine 11/14/19 17:48 traMADol [Ultram] 50 mg PO Q4H PRN 11/14/19 17:49 Non-Formulary Medication [NF Drug] 0 each TOP Q4H PRN 11/14/19 22:30 Remove Patch 1 ea TRDERM Q24H 11/15/19 10:16 Discontinue Telemetry Monitoring [Cardiac Monitoring Discontinue] [RC] Click to Edit Urinary Catheter Removal [RC] Per Unit Routine 11/15/19 10:45 Furosemide [Lasix] 40 mg PO DAILY 11/15/19 14:00 Warfarin [Coumadin] 7.5 mg PO ONETIME ONE - Plan Plan:: #. Probable acute exacerbation of diastolic congestive heart failure The patient has been short of breath. Brain natruretic peptide was elevated to about 500 #. Recent suspected pulmonary embolism Patient had CT scan in July 2019suggested possible pulmonary embolism Was placed on anticoagulation INR is subtherapeutic. Started on lovenox every 12 hours until INR becomes therapeutic #. Diabetes mellitus type 2 Monitor blood sugar before meals and at bedtime #. Hypertension Blood pressure is within acceptable limits #. Diarrhea Resolved #. Urinary tract infection Completed antibiotics Discontinue macrobid #. Recent gastrointestinal bleeding Evidence of active bleeding at this point HB is stable #. Generalized aches/pain Has right shoulder arthritis ESR is only 21. Influenza is negative No suggestion of PMR Oxycodone Discontinue Townsend catheter Discontinue telemetry Continue physical and occupational therapy
[2019-11-15] MEDS: Carboxymethylcellulose Sodium 1% Ophth Gel 0.4 ML UD EYEBOTH SCH ×2 (10:45→21:17)
[2019-11-15] MEDS ORDERED: Warfarin 2.5 MG Tab PO ONE (14:00)
[2019-11-15] MEDS: Calcium Carbonate/Vitamin D3 1250 MG-200 Unit Tab PO SCH (18:03)
[2019-11-15] MEDS: Ferrous Sulfate 325 MG Tab PO SCH (18:03)
[2019-11-15] MEDS ORDERED: ACETAMINOPHEN PO PRN (18:04)
[2019-11-15] MEDS ORDERED: OXYCODONE PO PRN (18:04)
[2019-11-15] MEDS: Cholecalciferol (Vitamin D3) 25 MCG Tab PO SCH (21:17)
[2019-11-16 07:24] LABS: ANION GAP 14.5
[2019-11-16] MEDS: metFORMIN 500 MG Tab PO SCH (08:39)
[2019-11-16] MEDS: Metoprolol Succinate 50 MG Tab.ER PO SCH (08:40)
[2019-11-16] MEDS: Acetaminophen 500 MG Tab PO SCH (08:40)
[2019-11-16] MEDS: Potassium Chloride 10 MEQ Tab.ER PO SCH (08:40)
[2019-11-16] MEDS: Aspirin 81 MG Tab.EC PO SCH (08:41)
[2019-11-16] MEDS: Hydrochlorothiazide 25 MG Tab PO SCH (08:41)
[2019-11-16] MEDS: cloNIDine 0.1 MG Tab PO SCH (08:41)
[2019-11-16] MEDS: Folic Acid 1 MG Tab PO SCH (08:42)
[2019-11-16] MEDS: Nitrofurantoin Monohydrate/Macrocrystalline 100 MG Cap PO SCH (08:42)
[2019-11-16] MEDS: amLODIPine 5 MG Tab PO SCH (08:42)
[2019-11-16] MEDS: Carboxymethylcellulose Sodium 1% Ophth Gel 0.4 ML UD EYEBOTH SCH (08:43)
[2019-11-16] MEDS: Enoxaparin 60 MG/0.6 ML Syringe SUBCUT SCH (08:43)
[2019-11-16] MEDS ORDERED: Furosemide 40 MG Tab PO SCH (09:00)
[2019-11-16] MEDS: Insulin Lispro 100 Units/ML 3 ML Vial SUBCUT SCH ×2 (09:29→13:21)
[2019-11-16 11:37] VITALS: BP 124/47; PULSE 59
--- NOTE | 2019-11-16 13:46 | PCM.DCSUM1 ---
Discharge Summary - Hospital Course Free Text/Narrative:: The patient is an 89-year-old female with multiple medical problems including atrial fibrillation status post pacemaker placement, history of pulmonary embolism, hypertension, COPD, diabetes mellitus type 2. Patient presented to the emergency room complaining of progressive shortness of breath, associated generalized body malaise and weakness. BNP was elevated at 500 and she had mild bilateral lower extremity edema. She was treated for acute exacerbation of CHF with diuresis resulting in improvement of her symptoms. Discharge diagnosis - Probable acute exacerbation of diastolic congestive heart failure - Recent suspected pulmonary embolism - Subtherapeutic INR - Chronic anticoagulation - Diabetes mellitus type 2 - Hypertension - Diarrhea - Urinary tract infection - Recent gastrointestinal bleeding - Generalized aches/pain Diagnosis: Stroke: No - Discharge Data Discharge Date: 11/16/19 Discharge Disposition: DC/Tfer W/I Hosp To [place] [id number] Condition: Fair - Referral to Home Health Primary Care Physician: PCP Unobtainable - Patient Summary/Data Consults: Consultations 11/14/19 09:16 OT Evaluation and Treatment [CONS] Routine PT Evaluation and Treatment [CONS] Routine - Discharge Plan *PRESCRIPTION DRUG MONITORING PROGRAM REVIEWED*: Not Applicable *COPY OF PRESCRIPTION DRUG MONITORING REPORT IN PATIENT ERWIN: Not Applicable Home Medications: Home Meds Fenofibrate 160 mg PO .1800 04/20/15 [History] Metoprolol Succinate [Toprol XL] 100 mg PO DAILY 04/20/15 [History] metFORMIN [Glucophage] 1,000 mg PO BIDMEALS 04/20/15 [History] Pantoprazole [ProTONIX] 40 mg PO DAILY PRN 03/24/16 [History] cloNIDine [Catapres] 0.2 mg PO BID 02/10/17 [History] Cholecalciferol (Vitamin D3) [Vitamin D3] 2,000 unit PO BEDTIME 07/25/18 [ History] Calcium Citrate/Vitamin D3 [Citracal + D Maximum Caplet] 1 each PO .1800 [History] Albuterol [Proventil HFA] 2 puff INH Q4H PRN 08/23/19 [History] Albuterol/Ipratropium [DuoNeb 3.0-0.5 MG/3 ML] 3 ml INH Q4H PRN 08/23/19 [ History] Aspirin [Adult Low Dose Aspirin EC] 81 mg PO DAILY 08/23/19 [History] Ciclopirox/Ure/Camph/Menth/Euc [Ciclopirox 8% Treatment Kit] 34.6 ml TP DAILY [History] Ferrous Sulfate 325 mg PO .SUPPER 08/23/19 [History] Folic Acid 1 mg PO DAILY 08/23/19 [History] Magnesium Oxide [Magnesium] 100 mg PO DAILY 08/23/19 [History] [place]-3 Acid Ethyl Esters [Lovaza] 2 gm PO BID 08/23/19 [History] Propylene Glycol/Peg 400 [Systane 0.3-0.4% Eye Drops] 1 drop EYEBOTH BID [History] amLODIPine [Norvasc] 10 mg PO DAILY 08/23/19 [History] hydroCHLOROthiazide [Hydrochlorothiazide] 25 mg PO DAILY 08/23/19 [History] Furosemide [Lasix] 20 mg PO DAILY 10/03/19 [History] Nitrofurantoin Macrocrystal [Nitrofurantoin] 100 mg PO BID 11/13/19 [History] Warfarin [Coumadin] 2.5 mg PO DAILY 11/13/19 [History] oxyCODONE HCl/Acetaminophen [Endocet 7.5-325 mg Tablet] 1 tab PO Q6H PRN [History] Referrals: PCP,Unobtain [Primary Care Provider] - - Discharge Summary/Plan Comment DC Time >30 min.: No - General Info Functional Status: Reports: Pain Controlled - Review of Systems General: Reports: No Symptoms HEENT: Reports: No Symptoms Pulmonary: Reports: No Symptoms Cardiovascular: Reports: No Symptoms Gastrointestinal: Reports: No Symptoms Genitourinary: Reports: No Symptoms Musculoskeletal: Reports: No Symptoms Skin: Reports: No Symptoms Neurological: Reports: No Symptoms Psychiatric: Reports: No Symptoms - Patient Data Vitals - Most Recent: Last Vital Signs Temp 98.3 F 11/16/19 11:35 Pulse 59 L 11/16/19 11:35 Resp 20 11/16/19 11:35 BP 124/47 L 11/16/19 11:35 Pulse Ox 95 11/16/19 11:35 Weight - Most Recent: 152 lb 2 oz I&O - Last 24 hours: Intake & Output 11/15/19 11/16/19 11/16/19 22:59 06:59 14:59 Intake Total 440 940 Balance 440 940 Lab Results - Last 24 hrs: Laboratory Results - last 24 hr 11/15/19 11/15/19 11/16/19 Range/Units 16:58 21:01 06:30 PT 14.1 H (9.0-12.0) SEC INR 1.4 H (0.9-1.2) Sodium (135-145) mmol/L Potassium (3.6-5.0) mmol/L Chloride (101-111) mmol/L Carbon Dioxide (21.0-31.0) mmol/L Anion Gap BUN (7-18) mg/dL Creatinine (0.6-1.3) mg/dL Est Cr Clr Drug Dosing mL/min Estimated GFR (MDRD) Glucose (74-105) mg/dL POC Glucose 186 H 205 H (83-110) mg/dl Calcium (8.4-10.2) mg/dl 11/16/19 11/16/19 11/16/19 Range/Units 06:30 07:47 12:01 PT (9.0-12.0) SEC INR (0.9-1.2) Sodium 134 L (135-145) mmol/L Potassium 4.5 (3.6-5.0) mmol/L Chloride 96 L (101-111) mmol/L Carbon Dioxide 28.0 (21.0-31.0) mmol/L Anion Gap 14.5 BUN 36 H (7-18) mg/dL Creatinine 1.0 (0.6-1.3) mg/dL Est Cr Clr Drug Dosing 36.40 mL/min Estimated GFR (MDRD) 52 Glucose 147 H (74-105) mg/dL POC Glucose 158 H 174 H (83-110) mg/dl Calcium 9.8 (8.4-10.2) mg/dl Med Orders - Current: Current Medications Acetaminophen (Tylenol) 650 mg PO Q4H PRN PRN Reason: Pain (Mild 1-3)/fever Last Admin: 11/13/19 12:26 Dose: 650 mg Acetaminophen (Tylenol Extra Strength) 1,000 mg PO BID [facility] Last Admin: 11/16/19 08:40 Dose: 1,000 mg Albuterol (Proventil Neb Soln) 2.5 mg NEB Q2H PRN PRN Reason: shortness of breath/wheezing Albuterol (Proventil Hfa) 0 gm INH Q4H PRN PRN Reason: Wheezing Albuterol/Ipratropium (Duoneb 3.0-0.5 Mg/3 Ml) 3 ml INH Q4H PRN PRN Reason: Wheezing Last Admin: 11/14/19 03:38 Dose: 3 ml Amlodipine Besylate (Norvasc) [address] [facility] Last Admin: 11/16/19 08:42 Dose: 10 mg Artificial Tears (Refresh Celluvisc) [address] [facility] Last Admin: 11/16/19 08:43 Dose: 1 each Aspirin (Halfprin) [address] [facility] Last Admin: 11/16/19 08:41 Dose: 81 mg Calcium Carbonate (Calcium Carbonate/Vitamin D 1250 Mg-200 Unit) [address] [facility] Last Admin: 11/15/19 18:03 Dose: 1 tab Cholecalciferol (Vitamin D3) [address] [facility] Last Admin: 11/15/19 21:17 Dose: 50 mcg Clonidine HCl (Catapres) 0.[address] [facility] Last Admin: 11/16/19 08:41 Dose: 0.2 mg Enoxaparin Sodium (Lovenox) [address] [facility] Last Admin: 11/16/19 08:43 Dose: 60 mg Ferrous Sulfate (Ferrous Sulfate) [address] [facility] Last Admin: 11/15/19 18:03 Dose: 325 mg Folic Acid (Folic Acid) [address] [facility] Last Admin: 11/16/19 08:42 Dose: 1 mg Furosemide (Lasix) [address] [facility] Last Admin: 11/16/19 08:43 Dose: 40 mg Hydrochlorothiazide (Hydrochlorothiazide) [address] [facility] Last Admin: 11/16/19 08:41 Dose: 25 mg Insulin Human Lispro (Humalog) [address] [facility]; Protocol Last Admin: 11/16/19 13:21 Dose: 1 unit Magnesium Oxide (Magnesium Oxide) [address] [facility] Last Admin: 11/16/19 08:42 Dose: 250 mg Metformin HCl (Glucophage) 1,[address] [facility] Last Admin: 11/16/19 08:39 Dose: 1,000 mg Metoprolol Succinate (Toprol Xl) [address] [facility] Last Admin: 11/16/19 08:40 Dose: 100 mg Nitrofurantoin Macrocrystals (Macrobid) [address] [facility] Last Admin: 11/16/19 08:42 Dose: 100 mg Theragesic Cream (Own Med) 0 each TOP Q4H PRN PRN Reason: Pain Last Admin: 11/15/19 08:59 Dose: 1 each Oxycodone Hcl/Acetaminophen 7.5- 325 Mg Tab #Own Supply# 0.5 tab PO Q8H PRN PRN Reason: Pain Ondansetron HCl (Zofran) 4 mg IVPUSH Q6H PRN PRN Reason: Nausea/Vomiting Pantoprazole Sodium (Protonix) 40 mg PO DAILY PRN PRN Reason: reflux Potassium Chloride (Klor-Con 10) [address] [facility] Last Admin: 11/16/19 08:40 Dose: 40 meq Senna/Docusate Sodium (Senna Plus) [address] [facility] Last Admin: 11/16/19 08:42 Dose: 1 tab Sodium Chloride (Saline Flush) 10 ml FLUSH ASDIRECTED PRN PRN Reason: Keep Vein Open Last Admin: 11/15/19 09:01 Dose: 10 ml Warfarin Sodium (Pharmacy To Dose - Warfarin) [address] [facility] Warfarin Sodium (Coumadin) 7.5 mg PO ONETIME ONE Stop: 11/16/19 14:01 Last Admin: 11/16/19 13:20 Dose: 7.5 mg Discontinued Medications Enoxaparin Sodium (Lovenox) [address] [facility] Last Admin: 11/13/19 00:06 Dose: 60 mg Enoxaparin Sodium (Lovenox) Confirm Administered Dose 60 mg .ROUTE .STK-MED ONE Stop: 11/13/19 00:05 Last Admin: 11/13/19 05:44 Dose: Not Given Furosemide (Lasix) [address] [facility] Last Admin: 11/15/19 08:55 Dose: 20 mg Lidocaine (Lidoderm 5%) [address] [facility] Last Admin: 11/14/19 10:34 Dose: 700 mg Miscellaneous Information (Remove Patch) [address] [facility] Last Admin: 11/15/19 22:24 Dose: Not Given Non-Formulary Medication (Ciclopirox/Ure/Camph/Menth/Euc [Ciclopirox 8% Treatment Kit]) 34.[address] [facility] Last Admin: 11/13/19 11:47 Dose: Not Given Non-Formulary Medication (Fenofibrate [Fenofibrate]) [address] [facility] Non-Formulary Medication (Magnesium Oxide [Magnesium]) [address] [facility] Last Admin: 11/13/19 11:47 Dose: Not Given Non-Formulary Medication ([place]-3 Acid Ethyl Esters [Lovaza]) [address] [facility] Last Admin: 11/13/19 11:21 Dose: Not Given Non-Formulary Medication (Propylene Glycol/Peg 400 [Systane 0.3-0.4% Eye Drops] ) [address] [facility] Last Admin: 11/13/19 11:22 Dose: Not Given Oxycodone HCl (Oxycodone) 5 mg PO Q4H PRN PRN Reason: Pain Last Admin: 11/14/19 12:15 Dose: 5 mg Oxycodone/Acetaminophen (Percocet 325-5 Mg) 1 tab PO Q4H PRN PRN Reason: Pain (moderate 4-6) Last Admin: 11/14/19 09:18 Dose: 1 tab Oxycodone/Acetaminophen (Percocet 325-5 Mg) 2 tab PO Q4H PRN PRN Reason: Pain (severe 7-10) Tramadol HCl (Ultram) 50 mg PO Q4H PRN PRN Reason: Pain Last Admin: 11/15/19 03:14 Dose: 50 mg Warfarin Sodium (Coumadin) 5 mg PO ONETIME ONE Stop: 11/13/19 14:01 Last Admin: 11/13/19 13:28 Dose: 5 mg Warfarin Sodium (Coumadin) 5 mg PO ONETIME ONE Stop: 11/14/19 14:01 Last Admin: 11/14/19 15:23 Dose: 5 mg Warfarin Sodium (Coumadin) 7.5 mg PO ONETIME ONE Stop: 11/15/19 14:01 Last Admin: 11/15/19 13:13 Dose: 7.5 mg - Exam General: Reports: Alert, Oriented HEENT: Reports: Pupils Equal, Pupils Reactive, EOMI, Mucous Membr. Moist/[place] Neck: Reports: Supple Lungs: Reports: Clear to Auscultation, Normal Respiratory Effort Cardiovascular: Reports: Regular Rate, Regular Rhythm GI/Abdominal Exam: Normal Bowel Sounds, Soft, Non-Tender, No Organomegaly, No Distention, No Abnormal Bruit, No Mass, Pelvis Stable (Female) Exam: Deferred Rectal (Female) Exam: Deferred Back Exam: Reports: Normal Inspection, Full Range of Motion Extremities: Normal Inspection, Normal Range of Motion, Non-Tender, No Pedal Edema, Normal Capillary Refill Skin: Reports: Warm, Dry, Intact Wound/Incisions: Reports: Healing Well Neurological: Reports: No New Focal Deficit Psy/Mental Status: Reports: Alert, Normal Affect, Normal Mood
[2019-11-16] MEDS ORDERED: Warfarin 2.5 MG Tab PO ONE (14:00)
== END 2019-11-16 14:00 | disposition swing bed (61) | DRG 291 ==
LOC: DL.ED 17:37 → DL.MS 20:39
PROVIDERS: ADMIT Hospitalist; ATTEND Internal Medicine
DX: I11.0 Hypertensive heart disease with heart failure (principal); I50.9 Heart failure, unspecified; I50.31 Acute diastolic (congestive) heart failure; N39.0 Urinary tract infection, site not specified; I48.91 Unspecified atrial fibrillation; J44.9 Chronic obstructive pulmonary disease, unspecified; E11.9 Type 2 diabetes mellitus without complications; R19.7 Diarrhea, unspecified; H54.7 Unspecified visual loss; E78.00 Pure hypercholesterolemia, unspecified; K21.9 Gastro-esophageal reflux disease without esophagitis; R32 Unspecified urinary incontinence; G89.29 Other chronic pain; M54.9 Dorsalgia, unspecified; M19.011 Primary osteoarthritis, right shoulder; Z79.82 Long term (current) use of aspirin; Z79.899 Other long term (current) drug therapy; Z79.84 Long term (current) use of oral hypoglycemic drugs; Z88.1 Allergy status to other antibiotic agents; M19.90 Unspecified osteoarthritis, unspecified site; Z86.718 Personal history of other venous thrombosis and embolism; Z88.5 Allergy status to narcotic agent; Z88.8 Allergy status to other drugs, medicaments and biological substances; Z88.6 Allergy status to analgesic agent; Z95.0 Presence of cardiac pacemaker; Z86.711 Personal history of pulmonary embolism; Z79.01 Long term (current) use of anticoagulants; Z86.73 Personal history of transient ischemic attack (TIA), and cerebral infarction without residual deficits; Z87.891 Personal history of nicotine dependence
CPT/HCPCS: 36415; 51702; 71045; 80048; 80053; 82962; 83605; 83880; 84484; 85025; 85027; 85379; 85610; 85651; 86140; 87804; 93005; 94760; 97162-GP; 97166-GO; 99284; 99285-25; A9270-GY; J1650; J1815; J1940; J7620-GY

== ENCOUNTER 2019-11-16 10:46 | Inpatient (IN) | payer MEDICARE, BC ==
[2019-11-16] MEDS ORDERED: Pantoprazole 40 MG Tab.CR PO PRN (13:55)
[2019-11-16] MEDS ORDERED: Albuterol 6.7 GM Inhaler INH PRN (13:55)
[2019-11-16] MEDS ORDERED: Acetaminophen 325 MG Tab PO PRN (14:04)
[2019-11-16] MEDS: Ferrous Sulfate 325 MG Tab PO SCH (18:26)
[2019-11-16] MEDS: Calcium Carbonate/Vitamin D3 1250 MG-200 Unit Tab PO SCH (18:26)
[2019-11-16] MEDS: metFORMIN 500 MG Tab PO SCH (18:27)
[2019-11-16] MEDS: Insulin Lispro 100 Units/ML 3 ML Vial SUBCUT SCH ×2 (18:28→23:37)
[2019-11-16] MEDS ORDERED: Non-Formulary Medication 1 Each (Propylene Glycol/Peg 400 [Systane 0.3-0.4% Eye Drops] 1 D EYEBOTH SCH (21:00)
[2019-11-16] MEDS: cloNIDine 0.1 MG Tab PO SCH (23:18)
[2019-11-16] MEDS: Carboxymethylcellulose Sodium 1% Ophth Gel 0.4 ML UD EYEBOTH SCH (23:20)
[2019-11-16] MEDS: Nitrofurantoin Monohydrate/Macrocrystalline 100 MG Cap PO SCH (23:20)
[2019-11-16] MEDS: Cholecalciferol (Vitamin D3) 25 MCG Tab PO SCH (23:20)
[2019-11-16] MEDS: Acetaminophen 500 MG Tab PO SCH (23:21)
[2019-11-17] MEDS ORDERED: [UNRECOGNIZED DRUG - OTHER] TP SCH (09:00)
[2019-11-17] MEDS: Potassium Chloride 10 MEQ Tab.ER PO SCH (09:07)
[2019-11-17] MEDS: Furosemide 40 MG Tab PO SCH (09:08)
[2019-11-17] MEDS: Nitrofurantoin Monohydrate/Macrocrystalline 100 MG Cap PO SCH ×2 (09:08→21:53)
[2019-11-17] MEDS: metFORMIN 500 MG Tab PO SCH ×2 (09:08→18:19)
[2019-11-17] MEDS: Aspirin 81 MG Tab.EC PO SCH (09:08)
[2019-11-17] MEDS: Metoprolol Succinate 50 MG Tab.ER PO SCH (09:09)
[2019-11-17] MEDS: cloNIDine 0.1 MG Tab PO SCH ×2 (09:09→21:52)
[2019-11-17] MEDS: Acetaminophen 500 MG Tab PO SCH ×2 (09:10→21:54)
[2019-11-17] MEDS: Hydrochlorothiazide 25 MG Tab PO SCH (09:10)
[2019-11-17] MEDS: Folic Acid 1 MG Tab PO SCH (09:10)
[2019-11-17] MEDS: amLODIPine 5 MG Tab PO SCH (09:10)
[2019-11-17] MEDS: Insulin Lispro 100 Units/ML 3 ML Vial SUBCUT SCH ×4 (09:11→21:53)
[2019-11-17] MEDS: Carboxymethylcellulose Sodium 1% Ophth Gel 0.4 ML UD EYEBOTH SCH ×2 (09:11→21:54)
--- NOTE | 2019-11-17 13:19 | PCM.HP ---
H&P History of Present Illness - General Date of Service: 11/16/19 Admit Problem/Dx: Admission Diagnosis/Problem Admission Diagnosis/Problem CHF, Congestive heart failure Source of Information: Patient History Limitations: Reports: No Limitations - History of Present Illness Initial Comments - Free Text/Narative: Saba Ball is an 89-year-old female with multiple medical problems including atrial fibrillation status post pacemaker placement, history of pulmonary embolism, hypertension, COPD, diabetes mellitus type 2 who was recently admitted and discharged due to CHF exacerbation. Patient has no complains today. She had leg swelling and shortness of breath which improved greatly after diuresis. She was transferred to swing bed for further cares. - Related Data Allergies/Adverse Reactions: Allergies Allergy/AdvReac Type Severity Reaction Status Date / Time amoxicillin Allergy Hives Verified 11/16/19 11:58 ezetimibe Allergy Cannot Verified 11/16/19 11:58 Remember morphine Allergy Confusion Verified 11/16/19 11:58 moxifloxacin Allergy Cannot Verified 11/16/19 11:58 Remember naproxen [From Aleve] Allergy Cannot Verified 11/16/19 11:58 Remember Chabkbw-Ubx-Qli Reductase Allergy Muscle Verified 11/16/19 11:58 Inhibitor Aches sulindac Allergy Cannot Verified 11/16/19 11:58 Remember Tetracyclines Allergy Cannot Verified 11/16/19 11:58 Remember Home Medications: Home Meds Fenofibrate 160 mg PO .1800 04/20/15 [History] Metoprolol Succinate [Toprol XL] 100 mg PO DAILY 04/20/15 [History] metFORMIN [Glucophage] 1,000 mg PO BIDMEALS 04/20/15 [History] Pantoprazole [ProTONIX] 40 mg PO DAILY PRN 03/24/16 [History] cloNIDine [Catapres] 0.2 mg PO BID 02/10/17 [History] Cholecalciferol (Vitamin D3) [Vitamin D3] 2,000 unit PO BEDTIME 07/25/18 [ History] Calcium Citrate/Vitamin D3 [Citracal + D Maximum Caplet] 1 each PO .1800 [History] Albuterol [Proventil HFA] 2 puff INH Q4H PRN 08/23/19 [History] Albuterol/Ipratropium [DuoNeb 3.0-0.5 MG/3 ML] 3 ml INH Q4H PRN 08/23/19 [ History] Aspirin [Adult Low Dose Aspirin EC] 81 mg PO DAILY 08/23/19 [History] Ciclopirox/Ure/Camph/Menth/Euc [Ciclopirox 8% Treatment Kit] 34.6 ml TP DAILY [History] Ferrous Sulfate 325 mg PO .SUPPER 08/23/19 [History] Folic Acid 1 mg PO DAILY 08/23/19 [History] Magnesium Oxide [Magnesium] 100 mg PO DAILY 08/23/19 [History] [place]-3 Acid Ethyl Esters [Lovaza] 2 gm PO BID 08/23/19 [History] Propylene Glycol/Peg 400 [Systane 0.3-0.4% Eye Drops] 1 drop EYEBOTH BID [History] amLODIPine [Norvasc] 10 mg PO DAILY 08/23/19 [History] hydroCHLOROthiazide [Hydrochlorothiazide] 25 mg PO DAILY 08/23/19 [History] Furosemide [Lasix] 20 mg PO DAILY 10/03/19 [History] Nitrofurantoin Macrocrystal [Nitrofurantoin] 100 mg PO BID 11/13/19 [History] Warfarin [Coumadin] 2.5 mg PO DAILY 11/13/19 [History] oxyCODONE HCl/Acetaminophen [Endocet 7.5-325 mg Tablet] 1 tab PO Q6H PRN [History] Past Medical History - Past Health History Medical/Surgical History: Denies Medical/Surgical History HEENT History: Reports: Impaired Vision Other HEENT History: wears glasses, is legally blind Cardiovascular History: Reports: Afib, Blood Clots/VTE/DVT, Heart Failure, High Cholesterol, Hypertension, Pacemaker Other Cardiovascular History: pauses in heart beat Respiratory History: Reports: COPD, PE, SOB, Other (See Below) Other Respiratory History: recent intubation Gastrointestinal History: Reports: GERD Other Gastrointestinal History: prolapsed rectum Genitourinary History: Reports: Urinary Incontinence Other Genitourinary History: wears protection [employer] History: Reports: Musculoskeletal History: Reports: Back Pain, Chronic, Osteoarthritis, Other ( See Below) Other Musculoskeletal History: degenerative disc disease Neurological History: Reports: CVA, Headaches, Chronic, Other (See Below) Other Neuro History: cva in 2011 Psychiatric History: Reports: None Endocrine/Metabolic History: Reports: Diabetes, Type II Hematologic History: Reports: None Immunologic History: Reports: None Oncologic (Cancer) History: Reports: None Dermatologic History: Reports: None - Infectious Disease History Infectious Disease History: Reports: Chicken Pox, Measles - Past Surgical History Head Surgeries/Procedures: Reports: None HEENT Surgical History: Reports: None Cardiovascular Surgical History: Reports: Pacer Respiratory Surgical History: Reports: None GI Surgical History: Reports: Other (See Below) Other GI Surgeries/Procedures: Bowel resection Female Surgical History: Reports: Other (See Below) Other Female Surgeries/Procedures: Bladder surgery Musculoskeletal Surgical History: Reports: None Social & Family History - Family History Family Medical History: Noncontributory - Tobacco Use Smoking Status *Q: Former Smoker Used Tobacco, but Quit: Yes Month/Year Tobacco Last Used: 1965 - Caffeine Use Caffeine Use: Reports: None - Recreational Drug Use Recreational Drug Use: No - Living Situation & Occupation Living situation: Reports: , Alone Occupation: Retired H&P Review of Systems - Review of Systems: Review Of Systems: See Below General: Reports: No Symptoms, Weakness HEENT: Reports: No Symptoms Pulmonary: Reports: No Symptoms Cardiovascular: Reports: No Symptoms Gastrointestinal: Reports: No Symptoms Genitourinary: Reports: No Symptoms Musculoskeletal: Reports: No Symptoms Skin: Reports: No Symptoms Psychiatric: Reports: No Symptoms Neurological: Reports: No Symptoms Hematologic/Lymphatic: Reports: No Symptoms Immunologic: Reports: No Symptoms Exam - Exam Exam: See Below - Vital Signs Vital Signs: Last Vital Signs Temp 97.7 F 11/17/19 07:52 Pulse 82 11/17/19 09:09 Resp 22 H 11/17/19 07:52 BP 164/79 H 11/17/19 09:10 Pulse Ox 99 11/17/19 07:52 Weight: 152 lb 2 oz - Exam General: Alert, Oriented, 4 HEENT: PERRLA, Hearing Intact, Mucosa Moist & [place], Nares Patent, Normal Nasal Septum, Posterior Pharynx Clear, Conjunctiva Clear, EOMI, EACs Clear, TMs Clear Neck: Supple, Trachea Midline, 2 Lungs: Clear to Auscultation, Normal Respiratory Effort Cardiovascular: Regular Rate, Regular Rhythm GI/Abdominal Exam: Normal Bowel Sounds, Soft, Non-Tender, No Organomegaly, No Distention, No Abnormal Bruit, No Mass, Pelvis Stable (Female) Exam: Deferred Rectal (Female) Exam: Deferred Back Exam: Normal Inspection, Full Range of Motion, NT Extremities: Normal Inspection, Normal Range of Motion, Non-Tender, No Pedal Edema, Normal Capillary Refill Skin: Warm, Dry, Intact Neurological: Cranial Nerves Intact, Reflexes Equal Bilateral Neuro Extensive - Mental Status: Alert, Oriented x3, Normal Mood/Affect, Normal Cognition Neuro Extensive - Motor, Sensory, Reflexes: CN II-XII Intact, Normal Gait, Normal Reflexes Psychiatric: Alert, Normal Affect, Normal Mood - Patient Data Lab Results Last 24 hrs: Laboratory Results - last 24 hr 11/16/19 11/16/19 11/17/19 Range/Units 16:59 21:11 06:22 PT 18.6 H D (9.0-12.0) SEC INR 1.9 H (0.9-1.2) POC Glucose 165 H 202 H (83-110) mg/dl 11/17/19 11/17/19 Range/Units 08:03 11:40 PT (9.0-12.0) SEC INR (0.9-1.2) POC Glucose 151 H 209 H (83-110) mg/dl Problem List Initiated/Reviewed/Updated: Yes Orders Last 24hrs: Active Orders 24 hr Category Date Time Status Patient Status [ADT] Routine ADT 11/16/19 13:49 Active Blood Glucose Check, Bedside [RC] QIDACANDBED Care 11/16/19 13:47 Active Intake and Output [RC] QSHIFT Care 11/16/19 13:47 Active Oxygen Therapy [RC] PRN Care 11/16/19 13:47 Active RT Aerosol Therapy [RC] ASDIRECTED Care 11/16/19 13:47 Active Up ad Yulissa [RC] ASDIRECTED Care 11/16/19 13:47 Active Vital Signs [RC] ,20 Care 11/16/19 13:49 Active OT Evaluation and Treatment [CONS] Routine Cons 11/16/19 13:47 Active PT Evaluation and Treatment [CONS] Routine Cons 11/16/19 13:47 Active 2 Gram Sodium Diet [DIET] Diet 11/16/19 Dinner Active INR,PT,PROTHROMBIN TIME [COAG] DAILY Lab 11/18/19 05:11 Ordered Acetaminophen [Tylenol Extra Strength] Med 11/16/19 21:00 Active 1,000 mg PO BID Acetaminophen [Tylenol] Med 11/16/19 14:04 Active 650 mg PO Q8H PRN Albuterol [Proventil HFA] Med 11/16/19 13:55 Active 0 gm INH Q4H PRN Albuterol/Ipratropium [DuoNeb 3.0-0.5 MG/3 ML] Med 11/16/19 13:55 Active 3 ml INH Q4H PRN Aspirin [Halfprin] Med 11/17/19 09:00 Active 81 mg PO DAILY Calcium Carbonate/Vitamin D3 [Calcium Carbonate/Vitamin Med 11/16/19 18:00 Active D 1250 MG-200 Unit] 1 tab PO WITHDINNER Carboxymethylcellulose Sodium [Refresh Celluvisc] Med 11/16/19 21:00 Active 0 each EYEBOTH BID Cholecalciferol (Vitamin D3) [Vitamin D3] Med 11/16/19 21:00 Active 50 mcg PO BEDTIME Docusate Sodium/Sennosides [Senna Plus] Med 11/16/19 21:00 Active 1 tab PO BEDTIME Fenofibrate [Fenofibrate] Med 11/16/19 14:00 Pending 160 mg PO .1800 Ferrous Sulfate Med 11/16/19 18:00 Active 325 mg PO WITHDINNER Folic Acid Med 11/17/19 09:00 Active 1 mg PO DAILY Furosemide [Lasix] Med 11/17/19 09:00 Active 40 mg PO DAILY Insulin Lispro [HumaLOG] Med 11/16/19 18:00 Active See Protocol SUBCUT WITHMEALSANDBED Magnesium Oxide [Magnesium] Med 11/17/19 09:00 Pending 100 mg PO DAILY Metoprolol Succinate [Toprol XL] Med 11/17/19 09:00 Active 100 mg PO DAILY Nitrofurantoin [place]/Macrocryst [Macrobid] Med 11/16/19 21:00 Active 100 mg PO BID [place]-3 Acid Ethyl Esters [Lovaza] Med 11/16/19 21:00 Pending 2 gm PO BID Pantoprazole [ProTONIX] Med 11/16/19 13:55 Active 40 mg PO DAILY PRN Pharmacy to Dose - Warfarin Med 11/16/19 14:15 Pending 1 dose .XX ASDIRECTED Potassium Chloride [Klor-Con 10] Med 11/17/19 09:00 Active 20 meq PO DAILY Warfarin [Coumadin] Med 11/17/19 14:00 Once 5 mg PO ONETIME ONE amLODIPine [Norvasc] Med 11/17/19 09:00 Active 10 mg PO DAILY cloNIDine [Catapres] Med 11/16/19 21:00 Active 0.2 mg PO BID hydroCHLOROthiazide Med 11/17/19 09:00 Active 25 mg PO DAILY metFORMIN [Glucophage] Med 11/16/19 18:00 Active 1,000 mg PO BIDMEALS oxyCODONE HCl/Acetaminophen [Endocet 7.5-325 mg Tablet] Med 11/16/19 13:55 Active 0.5 tab PO Q8H PRN K Pad [Heat Therapy] [OM.PC] Routine Oth 11/16/19 13:47 Ordered Resuscitation Status Routine Resus Stat 11/16/19 13:49 Ordered Medication Orders Acetaminophen (Tylenol Extra Strength) 1,000 mg PO BID [facility] Last Admin: 11/17/19 09:10 Dose: 1,000 mg Admin: 11/16/19 23:21 Dose: 1,000 mg Acetaminophen (Tylenol) 650 mg PO Q8H PRN PRN Reason: Pain (mild 1-3) Albuterol (Proventil Hfa) 0 gm INH Q4H PRN PRN Reason: Wheezing Albuterol/Ipratropium (Duoneb 3.0-0.5 Mg/3 Ml) 3 ml INH Q4H PRN PRN Reason: Wheezing Amlodipine Besylate (Norvasc) 10 mg PO DAILY [facility] Last Admin: 11/17/19 09:10 Dose: 10 mg Artificial Tears (Refresh Celluvisc) 0 each EYEBOTH BID [facility] Last Admin: 11/17/19 09:11 Dose: 1 each Admin: 11/16/19 23:20 Dose: 1 each Aspirin (Halfprin) 81 mg PO DAILY [facility] Last Admin: 11/17/19 09:08 Dose: 81 mg Calcium Carbonate (Calcium Carbonate/Vitamin D 1250 Mg-200 Unit) 1 tab PO WITHDINNER [facility] Last Admin: 11/16/19 18:26 Dose: 1 tab Cholecalciferol (Vitamin D3) 50 mcg PO BEDTIME [facility] Last Admin: 11/16/19 23:20 Dose: 50 mcg Clonidine HCl (Catapres) 0.2 mg PO BID [facility] Last Admin: 11/17/19 09:09 Dose: 0.2 mg Admin: 11/16/19 23:18 Dose: 0.2 mg Ferrous Sulfate (Ferrous Sulfate) 325 mg PO WITHDINNER [facility] Last Admin: 11/16/19 18:26 Dose: 325 mg Folic Acid (Folic Acid) 1 mg PO DAILY [facility] Last Admin: 11/17/19 09:10 Dose: 1 mg Furosemide (Lasix) 40 mg PO DAILY [facility] Last Admin: 11/17/19 09:08 Dose: 40 mg Hydrochlorothiazide (Hydrochlorothiazide) 25 mg PO DAILY [facility] Last Admin: 11/17/19 09:10 Dose: 25 mg Insulin Human Lispro (Humalog) 0 unit SUBCUT WITHMEALSANDBED [facility]; Protocol Last Admin: 11/17/19 09:11 Dose: Not Given Admin: 11/16/19 23:37 Dose: 4 unit Admin: 11/16/19 18:28 Dose: 1 unit Metformin HCl (Glucophage) 1,000 mg PO BIDMEALS [facility] Last Admin: 11/17/19 09:08 Dose: 1,000 mg Admin: 11/16/19 18:27 Dose: 1,000 mg Metoprolol Succinate (Toprol Xl) 100 mg PO DAILY [facility] Last Admin: 11/17/19 09:09 Dose: 100 mg Nitrofurantoin Macrocrystals (Macrobid) 100 mg PO BID [facility] Last Admin: 11/17/19 09:08 Dose: 100 mg Admin: 11/16/19 23:20 Dose: 100 mg Non-Formulary Medication (Fenofibrate [Fenofibrate]) 160 mg PO .1800 [facility] Non-Formulary Medication (Magnesium Oxide [Magnesium]) 100 mg PO DAILY [facility] Non-Formulary Medication ([place]-3 Acid Ethyl Esters [Lovaza]) 2 gm PO BID [facility] Oxycodone Hcl/Acetaminophen [ Endocet 7.5-325 Mg TabletOwn Med 0.5 tab PO Q8H PRN PRN Reason: Pain Pantoprazole Sodium (Protonix) 40 mg PO DAILY PRN PRN Reason: reflux Potassium Chloride (Klor-Con 10) 20 meq PO DAILY [facility] Last Admin: 11/17/19 09:07 Dose: 20 meq Senna/Docusate Sodium (Senna Plus) 1 tab PO BEDTIME [facility] Last Admin: 11/16/19 23:21 Dose: Warfarin Sodium (Pharmacy To Dose - Warfarin) 1 dose .XX ASDIRECTED [facility] Warfarin Sodium (Coumadin) 5 mg PO ONETIME ONE Stop: 11/17/19 14:01 Assessment/Plan Comment:: #. Probable acute exacerbation of diastolic congestive heart failure - Continue diuresis #. Recent suspected pulmonary embolism Patient had CT scan in July 2019suggested possible pulmonary embolism Was placed on anticoagulation INR is subtherapeutic. - Continue on lovenox every 12 hours until INR becomes therapeutic #. Diabetes mellitus type 2 Monitor blood sugar before meals and at bedtime #. Hypertension Blood pressure is within acceptable limits #. Generalized aches/pain Has right shoulder arthritis - On Oxycodone - Continue physical and occupational therapy
[2019-11-17] MEDS ORDERED: Warfarin 5 MG Tab PO ONE (14:00)
[2019-11-17] MEDS: Calcium Carbonate/Vitamin D3 1250 MG-200 Unit Tab PO SCH (18:19)
[2019-11-17] MEDS: Ferrous Sulfate 325 MG Tab PO SCH (18:19)
[2019-11-17] MEDS: Cholecalciferol (Vitamin D3) 25 MCG Tab PO SCH (21:55)
[2019-11-18 07:48] LABS: ANION GAP 14.5
[2019-11-18] MEDS: Nitrofurantoin Monohydrate/Macrocrystalline 100 MG Cap PO SCH ×2 (09:35→22:11)
[2019-11-18] MEDS: Hydrochlorothiazide 25 MG Tab PO SCH (09:35)
[2019-11-18] MEDS: cloNIDine 0.1 MG Tab PO SCH ×2 (09:35→22:11)
[2019-11-18] MEDS: Metoprolol Succinate 50 MG Tab.ER PO SCH (09:36)
[2019-11-18] MEDS: Aspirin 81 MG Tab.EC PO SCH (09:36)
[2019-11-18] MEDS: Folic Acid 1 MG Tab PO SCH (09:36)
[2019-11-18] MEDS: Furosemide 40 MG Tab PO SCH (09:36)
[2019-11-18] MEDS: metFORMIN 500 MG Tab PO SCH ×2 (09:36→17:06)
[2019-11-18] MEDS: Potassium Chloride 10 MEQ Tab.ER PO SCH (09:36)
[2019-11-18] MEDS: amLODIPine 5 MG Tab PO SCH (09:36)
[2019-11-18] MEDS: Acetaminophen 500 MG Tab PO SCH ×2 (09:37→22:12)
[2019-11-18] MEDS: Carboxymethylcellulose Sodium 1% Ophth Gel 0.4 ML UD EYEBOTH SCH ×2 (09:37→22:13)
[2019-11-18] MEDS: Insulin Lispro 100 Units/ML 3 ML Vial SUBCUT SCH ×4 (09:43→22:24)
[2019-11-18] MEDS: MAGNESIUM OXIDE PO SCH ×2 (12:11→22:22)
[2019-11-18] MEDS ORDERED: Warfarin 5 MG Tab PO ONE (14:00)
[2019-11-18] MEDS: Ferrous Sulfate 325 MG Tab PO SCH (17:06)
[2019-11-18] MEDS: Calcium Carbonate/Vitamin D3 1250 MG-200 Unit Tab PO SCH (17:06)
[2019-11-18] MEDS: FENOFIBRATE 160 MG PO SCH (17:07)
[2019-11-18] MEDS: Cholecalciferol (Vitamin D3) 25 MCG Tab PO SCH (22:11)
[2019-11-19] MEDS: cloNIDine 0.1 MG Tab PO SCH ×2 (08:40→23:22)
[2019-11-19] MEDS: Acetaminophen 500 MG Tab PO SCH ×2 (08:41→23:24)
[2019-11-19] MEDS: Furosemide 40 MG Tab PO SCH (08:41)
[2019-11-19] MEDS: metFORMIN 500 MG Tab PO SCH ×2 (08:41→17:57)
[2019-11-19] MEDS: Potassium Chloride 10 MEQ Tab.ER PO SCH (08:42)
[2019-11-19] MEDS: Nitrofurantoin Monohydrate/Macrocrystalline 100 MG Cap PO SCH ×2 (08:42→23:21)
[2019-11-19] MEDS: amLODIPine 5 MG Tab PO SCH (08:42)
[2019-11-19] MEDS: Folic Acid 1 MG Tab PO SCH (08:43)
[2019-11-19] MEDS: Hydrochlorothiazide 25 MG Tab PO SCH (08:43)
[2019-11-19] MEDS: Metoprolol Succinate 50 MG Tab.ER PO SCH (08:43)
[2019-11-19] MEDS: Aspirin 81 MG Tab.EC PO SCH (08:43)
[2019-11-19] MEDS: Carboxymethylcellulose Sodium 1% Ophth Gel 0.4 ML UD EYEBOTH SCH ×2 (08:44→23:21)
[2019-11-19] MEDS: MAGNESIUM OXIDE PO SCH (08:44)
[2019-11-19] MEDS: Insulin Lispro 100 Units/ML 3 ML Vial SUBCUT SCH ×4 (08:45→23:35)
[2019-11-19] MEDS ORDERED: Warfarin 5 MG Tab PO ONE (14:00)
[2019-11-19] MEDS: Ferrous Sulfate 325 MG Tab PO SCH (17:57)
[2019-11-19] MEDS: Calcium Carbonate/Vitamin D3 1250 MG-200 Unit Tab PO SCH (17:57)
[2019-11-19] MEDS: FENOFIBRATE 160 MG PO SCH (17:58)
[2019-11-19] MEDS: Cholecalciferol (Vitamin D3) 25 MCG Tab PO SCH (23:21)
[2019-11-20] MEDS: MAGNESIUM OXIDE PO SCH (09:43)
[2019-11-20] MEDS: Insulin Lispro 100 Units/ML 3 ML Vial SUBCUT SCH ×4 (09:50→21:07)
[2019-11-20] MEDS: Metoprolol Succinate 50 MG Tab.ER PO SCH (10:21)
[2019-11-20] MEDS: metFORMIN 500 MG Tab PO SCH ×2 (10:22→18:14)
[2019-11-20] MEDS: Folic Acid 1 MG Tab PO SCH (10:22)
[2019-11-20] MEDS: Nitrofurantoin Monohydrate/Macrocrystalline 100 MG Cap PO SCH ×2 (10:22→21:10)
[2019-11-20] MEDS: Potassium Chloride 10 MEQ Tab.ER PO SCH (10:23)
[2019-11-20] MEDS: Aspirin 81 MG Tab.EC PO SCH (10:24)
[2019-11-20] MEDS: Carboxymethylcellulose Sodium 1% Ophth Gel 0.4 ML UD EYEBOTH SCH ×2 (10:24→21:11)
[2019-11-20] MEDS: cloNIDine 0.1 MG Tab PO SCH ×2 (10:25→21:10)
[2019-11-20] MEDS: Hydrochlorothiazide 25 MG Tab PO SCH (10:25)
[2019-11-20] MEDS: Furosemide 40 MG Tab PO SCH (10:26)
[2019-11-20] MEDS: amLODIPine 5 MG Tab PO SCH (10:26)
[2019-11-20] MEDS: Acetaminophen 500 MG Tab PO SCH ×2 (10:27→21:11)
[2019-11-20] MEDS ORDERED: Warfarin 5 MG Tab PO ONE (14:00)
[2019-11-20] MEDS: Calcium Carbonate/Vitamin D3 1250 MG-200 Unit Tab PO SCH (18:12)
[2019-11-20] MEDS: Ferrous Sulfate 325 MG Tab PO SCH (18:12)
[2019-11-20] MEDS: FENOFIBRATE 160 MG PO SCH (18:14)
[2019-11-20] MEDS: Albuterol/Ipratropium 3.0-0.5 MG/3 ML Neb Soln INH PRN (18:14)
[2019-11-20] MEDS: Cholecalciferol (Vitamin D3) 25 MCG Tab PO SCH (21:10)
[2019-11-21 06:55] LABS: ANION GAP 15.4
[2019-11-21] MEDS: Insulin Lispro 100 Units/ML 3 ML Vial SUBCUT SCH ×4 (08:07→22:09)
[2019-11-21] MEDS: Potassium Chloride 10 MEQ Tab.ER PO SCH (08:44)
[2019-11-21] MEDS: amLODIPine 5 MG Tab PO SCH (08:45)
[2019-11-21] MEDS: Folic Acid 1 MG Tab PO SCH (08:45)
[2019-11-21] MEDS: Hydrochlorothiazide 25 MG Tab PO SCH (08:46)
[2019-11-21] MEDS: Furosemide 40 MG Tab PO SCH (08:46)
[2019-11-21] MEDS: Carboxymethylcellulose Sodium 1% Ophth Gel 0.4 ML UD EYEBOTH SCH ×2 (08:46→22:03)
[2019-11-21] MEDS: Nitrofurantoin Monohydrate/Macrocrystalline 100 MG Cap PO SCH ×2 (08:46→22:02)
[2019-11-21] MEDS: Aspirin 81 MG Tab.EC PO SCH (08:46)
[2019-11-21] MEDS: Metoprolol Succinate 50 MG Tab.ER PO SCH (08:47)
[2019-11-21] MEDS: metFORMIN 500 MG Tab PO SCH ×2 (08:47→17:55)
[2019-11-21] MEDS: Acetaminophen 500 MG Tab PO SCH ×2 (08:48→22:02)
[2019-11-21] MEDS: cloNIDine 0.1 MG Tab PO SCH ×2 (08:48→22:01)
[2019-11-21] MEDS: MAGNESIUM OXIDE PO SCH (08:50)
[2019-11-21] MEDS: OXYCODONE HCL PO PRN ×2 (08:59→22:04)
[2019-11-21] MEDS: ACETAMINOPHEN PO PRN ×2 (08:59→22:04)
[2019-11-21] MEDS: OMEGA ACID ETHYL ESTERS PO SCH ×3 (13:35→17:58)
[2019-11-21] MEDS ORDERED: Warfarin 2.5 MG Tab PO ONE (14:00)
[2019-11-21] MEDS: Ferrous Sulfate 325 MG Tab PO SCH (17:54)
[2019-11-21] MEDS: Calcium Carbonate/Vitamin D3 1250 MG-200 Unit Tab PO SCH (17:55)
[2019-11-21] MEDS: FENOFIBRATE 160 MG PO SCH (17:55)
[2019-11-21] MEDS: Albuterol/Ipratropium 3.0-0.5 MG/3 ML Neb Soln INH PRN (19:47)
[2019-11-21] MEDS: Cholecalciferol (Vitamin D3) 25 MCG Tab PO SCH (22:02)
[2019-11-22] MEDS: Insulin Lispro 100 Units/ML 3 ML Vial SUBCUT SCH ×4 (08:08→21:00)
[2019-11-22] MEDS: Albuterol/Ipratropium 3.0-0.5 MG/3 ML Neb Soln INH PRN ×2 (08:37→19:25)
[2019-11-22] MEDS: Hydrochlorothiazide 25 MG Tab PO SCH (08:38)
[2019-11-22] MEDS: Potassium Chloride 10 MEQ Tab.ER PO SCH (08:38)
[2019-11-22] MEDS: Nitrofurantoin Monohydrate/Macrocrystalline 100 MG Cap PO SCH ×2 (08:38→20:38)
[2019-11-22] MEDS: amLODIPine 5 MG Tab PO SCH (08:39)
[2019-11-22] MEDS: Folic Acid 1 MG Tab PO SCH (08:39)
[2019-11-22] MEDS: Acetaminophen 500 MG Tab PO SCH ×2 (08:39→20:38)
[2019-11-22] MEDS: metFORMIN 500 MG Tab PO SCH ×2 (08:40→17:50)
[2019-11-22] MEDS: Aspirin 81 MG Tab.EC PO SCH (08:40)
[2019-11-22] MEDS: cloNIDine 0.1 MG Tab PO SCH ×2 (08:40→20:38)
[2019-11-22] MEDS: Furosemide 40 MG Tab PO SCH (08:41)
[2019-11-22] MEDS: Metoprolol Succinate 50 MG Tab.ER PO SCH (08:41)
[2019-11-22] MEDS: Carboxymethylcellulose Sodium 1% Ophth Gel 0.4 ML UD EYEBOTH SCH ×2 (08:41→20:37)
[2019-11-22] MEDS: MAGNESIUM OXIDE PO SCH (08:41)
[2019-11-22] MEDS ORDERED: Warfarin 5 MG Tab PO ONE (14:00)
[2019-11-22] MEDS: Calcium Carbonate/Vitamin D3 1250 MG-200 Unit Tab PO SCH (17:50)
[2019-11-22] MEDS: FENOFIBRATE 160 MG PO SCH (17:50)
[2019-11-22] MEDS: Ferrous Sulfate 325 MG Tab PO SCH (17:50)
[2019-11-22] MEDS: Cholecalciferol (Vitamin D3) 25 MCG Tab PO SCH (20:38)
[2019-11-22] MEDS: ACETAMINOPHEN PO PRN (21:00)
[2019-11-22] MEDS: OXYCODONE HCL PO PRN (21:00)
[2019-11-23] MEDS: Insulin Lispro 100 Units/ML 3 ML Vial SUBCUT SCH ×4 (08:10→22:09)
[2019-11-23] MEDS: Potassium Chloride 10 MEQ Tab.ER PO SCH (09:47)
[2019-11-23] MEDS: metFORMIN 500 MG Tab PO SCH ×2 (09:47→17:50)
[2019-11-23] MEDS: Hydrochlorothiazide 25 MG Tab PO SCH (09:48)
[2019-11-23] MEDS: Aspirin 81 MG Tab.EC PO SCH (09:48)
[2019-11-23] MEDS: Folic Acid 1 MG Tab PO SCH (09:48)
[2019-11-23] MEDS: Metoprolol Succinate 50 MG Tab.ER PO SCH (09:52)
[2019-11-23] MEDS: Albuterol/Ipratropium 3.0-0.5 MG/3 ML Neb Soln INH PRN ×2 (09:52→21:33)
[2019-11-23] MEDS: amLODIPine 5 MG Tab PO SCH (09:52)
[2019-11-23] MEDS: Acetaminophen 500 MG Tab PO SCH ×2 (09:53→22:04)
[2019-11-23] MEDS: Furosemide 40 MG Tab PO SCH (09:54)
[2019-11-23] MEDS: cloNIDine 0.1 MG Tab PO SCH ×2 (09:54→22:03)
[2019-11-23] MEDS: Nitrofurantoin Monohydrate/Macrocrystalline 100 MG Cap PO SCH ×2 (09:54→22:03)
[2019-11-23] MEDS: Carboxymethylcellulose Sodium 1% Ophth Gel 0.4 ML UD EYEBOTH SCH ×2 (09:55→22:03)
[2019-11-23] MEDS: MAGNESIUM OXIDE PO SCH (09:56)
[2019-11-23] MEDS ORDERED: Warfarin 5 MG Tab PO ONE (14:00)
[2019-11-23] MEDS: Ferrous Sulfate 325 MG Tab PO SCH (17:50)
[2019-11-23] MEDS: FENOFIBRATE 160 MG PO SCH (17:51)
[2019-11-23] MEDS: Calcium Carbonate/Vitamin D3 1250 MG-200 Unit Tab PO SCH (17:51)
[2019-11-23] MEDS: Cholecalciferol (Vitamin D3) 25 MCG Tab PO SCH (22:04)
[2019-11-24 07:40] VITALS: BP 167/91
[2019-11-24] MEDS: Potassium Chloride 10 MEQ Tab.ER PO SCH (09:15)
[2019-11-24] MEDS: Folic Acid 1 MG Tab PO SCH (09:16)
[2019-11-24] MEDS: Acetaminophen 500 MG Tab PO SCH (09:16)
[2019-11-24] MEDS: metFORMIN 500 MG Tab PO SCH (09:16)
[2019-11-24] MEDS: Aspirin 81 MG Tab.EC PO SCH (09:16)
[2019-11-24] MEDS: Furosemide 40 MG Tab PO SCH (09:17)
[2019-11-24] MEDS: Hydrochlorothiazide 25 MG Tab PO SCH (09:17)
[2019-11-24] MEDS: Nitrofurantoin Monohydrate/Macrocrystalline 100 MG Cap PO SCH (09:17)
[2019-11-24] MEDS: amLODIPine 5 MG Tab PO SCH (09:17)
[2019-11-24] MEDS: Metoprolol Succinate 50 MG Tab.ER PO SCH (09:19)
[2019-11-24] MEDS: cloNIDine 0.1 MG Tab PO SCH (09:20)
[2019-11-24] MEDS: MAGNESIUM OXIDE PO SCH (09:20)
[2019-11-24] MEDS: Carboxymethylcellulose Sodium 1% Ophth Gel 0.4 ML UD EYEBOTH SCH (09:21)
[2019-11-24] MEDS: Insulin Lispro 100 Units/ML 3 ML Vial SUBCUT SCH ×2 (09:21→12:14)
--- NOTE | 2019-11-24 10:57 | PCM.DCSUM1 ---
Discharge Summary - Hospital Course Free Text/Narrative:: 89-year-old female with multiple medical problems including atrial fibrillation status post pacemaker placement, history of pulmonary embolism, hypertension, COPD, diabetes mellitus type 2 who was recently admitted and discharged due to CHF exacerbation. Patient improved with physical therapy in bed. Assisted living was recommended, however family declined. Patient was discharged home with home health. Diagnosis: Stroke: No - Discharge Data Discharge Date: 11/24/19 Discharge Disposition: Home, W Home Health Agency Condition: Good - Referral to Home Health Date of Face to Face Encounter: 11/24/19 Reason for Homebound Status: shortness of breath due to CHF. patient needs shelter for medication regimen and usage, PT for home exercise program/ strengthening, and OT for home safety evaluation and equipment needs. she requires a taxing effort to leave home and needs assistance of 1 and front wheeled walker for ambulation. Primary Care Physician: Umberto Weeks MD Skilled Need: as above - Patient Summary/Data Consults: Consultations 11/16/19 13:47 OT Evaluation and Treatment [CONS] Routine PT Evaluation and Treatment [CONS] Routine - Discharge Plan *PRESCRIPTION DRUG MONITORING PROGRAM REVIEWED*: No *COPY OF PRESCRIPTION DRUG MONITORING REPORT IN PATIENT ERWIN: No Prescriptions/Med Rec: Furosemide [Lasix] 40 mg PO DAILY #30 tablet Potassium Chloride [Klor-Con 10] 20 meq PO DAILY #30 tab.er Home Medications: Home Meds Fenofibrate 160 mg PO .1800 04/20/15 [History] Metoprolol Succinate [Toprol XL] 100 mg PO DAILY 04/20/15 [History] metFORMIN [Glucophage] 1,000 mg PO BIDMEALS 04/20/15 [History] Pantoprazole [ProTONIX] 40 mg PO DAILY PRN 03/24/16 [History] cloNIDine [Catapres] 0.2 mg PO BID 02/10/17 [History] Cholecalciferol (Vitamin D3) [Vitamin D3] 2,000 unit PO BEDTIME 07/25/18 [ History] Calcium Citrate/Vitamin D3 [Citracal + D Maximum Caplet] 1 each PO .1800 [History] Albuterol [Proventil HFA] 2 puff INH Q4H PRN 08/23/19 [History] Albuterol/Ipratropium [DuoNeb 3.0-0.5 MG/3 ML] 3 ml INH Q4H PRN 08/23/19 [ History] Aspirin [Adult Low Dose Aspirin EC] 81 mg PO DAILY 08/23/19 [History] Ciclopirox/Ure/Camph/Menth/Euc [Ciclopirox 8% Treatment Kit] 34.6 ml TP DAILY [History] Ferrous Sulfate 325 mg PO .SUPPER 08/23/19 [History] Folic Acid 1 mg PO DAILY 08/23/19 [History] Magnesium Oxide [Magnesium] 100 mg PO DAILY 08/23/19 [History] [place]-3 Acid Ethyl Esters [Lovaza] 2 gm PO BID 08/23/19 [History] Propylene Glycol/Peg 400 [Systane 0.3-0.4% Eye Drops] 1 drop EYEBOTH BID [History] amLODIPine [Norvasc] 10 mg PO DAILY 08/23/19 [History] hydroCHLOROthiazide [Hydrochlorothiazide] 25 mg PO DAILY 08/23/19 [History] Warfarin [Coumadin] 2.5 mg PO DAILY 11/13/19 [History] oxyCODONE HCl/Acetaminophen [Endocet 7.5-325 mg Tablet] 1 tab PO Q6H PRN [History] Furosemide [Lasix] 40 mg PO DAILY #30 tablet 11/24/19 [Rx] Potassium Chloride [Klor-Con 10] 20 meq PO DAILY #30 tab.er 11/24/19 [Rx] Patient Handouts: Furosemide tablets Referrals: Umberto Weeks MD [Primary Care Provider] - - Discharge Summary/Plan Comment DC Time >30 min.: Yes - General Info Date of Service: 11/24/19 Admission Dx/Problem (Free Text: Admission Diagnosis/Problem Admission Diagnosis/Problem CHF, Congestive heart failure - Patient Data Vitals - Most Recent: Last Vital Signs Temp 37.0 C 11/24/19 07:40 Pulse 96 11/24/19 09:19 Resp 20 11/24/19 07:40 BP 167/91 H 11/24/19 09:20 Pulse Ox 96 11/24/19 07:40 Weight - Most Recent: 66.678 kg I&O - Last 24 hours: Intake & Output 11/23/19 11/24/19 11/24/19 22:59 06:59 14:59 Intake Total 200 100 250 Balance 200 100 250 Lab Results - Last 24 hrs: Laboratory Results - last 24 hr 11/23/19 11/23/19 11/23/19 Range/Units 11:51 16:47 20:52 PT (9.0-12.0) SEC INR (0.9-1.2) POC Glucose 133 H 147 H 141 H (83-110) mg/dl 11/24/19 11/24/19 Range/Units 06:10 08:01 PT 25.3 H (9.0-12.0) SEC INR 2.6 H (0.9-1.2) POC Glucose 116 H (83-110) mg/dl Med Orders - Current: Current Medications Acetaminophen (Tylenol Extra Strength) 1,000 mg PO BID [facility] Last Admin: 11/24/19 09:16 Dose: 1,000 mg Acetaminophen (Tylenol) 650 mg PO Q8H PRN PRN Reason: Pain (mild 1-3) Albuterol (Proventil Hfa) 0 gm INH Q4H PRN PRN Reason: Wheezing Albuterol/Ipratropium (Duoneb 3.0-0.5 Mg/3 Ml) 3 ml INH Q4H PRN PRN Reason: Wheezing Last Admin: 11/23/19 21:33 Dose: 3 ml Amlodipine Besylate (Norvasc) 10 mg PO DAILY [facility] Last Admin: 11/24/19 09:17 Dose: 10 mg Artificial Tears (Refresh Celluvisc) 0 each EYEBOTH BID [facility] Last Admin: 11/24/19 09:21 Dose: 1 each Aspirin (Halfprin) 81 mg PO DAILY [facility] Last Admin: 11/24/19 09:16 Dose: 81 mg Calcium Carbonate (Calcium Carbonate/Vitamin D 1250 Mg-200 Unit) 1 tab PO WITHDINNER [facility] Last Admin: 11/23/19 17:51 Dose: 1 tab Cholecalciferol (Vitamin D3) 50 mcg PO BEDTIME [facility] Last Admin: 11/23/19 22:04 Dose: 50 mcg Clonidine HCl (Catapres) 0.2 mg PO BID [facility] Last Admin: 11/24/19 09:20 Dose: 0.2 mg Ferrous Sulfate (Ferrous Sulfate) 325 mg PO WITHDINNER [facility] Last Admin: 11/23/19 17:50 Dose: 325 mg Folic Acid (Folic Acid) 1 mg PO DAILY [facility] Last Admin: 11/24/19 09:16 Dose: 1 mg Furosemide (Lasix) 40 mg PO DAILY [facility] Last Admin: 11/24/19 09:17 Dose: 40 mg Hydrochlorothiazide (Hydrochlorothiazide) 25 mg PO DAILY [facility] Last Admin: 11/24/19 09:17 Dose: 25 mg Insulin Human Lispro (Humalog) 0 unit SUBCUT WITHMEALSANDBED [facility]; Protocol Last Admin: 11/24/19 09:21 Dose: Not Given Metformin HCl (Glucophage) 1,000 mg PO BIDMEALS [facility] Last Admin: 11/24/19 09:16 Dose: 1,000 mg Metoprolol Succinate (Toprol Xl) 100 mg PO DAILY [facility] Last Admin: 11/24/19 09:19 Dose: 100 mg Nitrofurantoin Macrocrystals (Macrobid) 100 mg PO BID [facility] Last Admin: 11/24/19 09:17 Dose: 100 mg Fenofibrate 160 Mg * (*Pt Own Med) 160 mg PO 1800 [facility] Last Admin: 11/23/19 17:51 Dose: 160 mg Magnesium Oxide Pt (Own Med) 0 mg PO DAILY [facility] Last Admin: 11/24/19 09:20 Dose: 1 mg Oxycodone Hcl/Acetaminophen [ Endocet 7.5-325 Mg TabletOwn Med 0.5 tab PO Q8H PRN PRN Reason: Pain Last Admin: 11/22/19 21:00 Dose: 0.5 tab Pantoprazole Sodium (Protonix) 40 mg PO DAILY PRN PRN Reason: reflux Potassium Chloride (Klor-Con 10) 20 meq PO DAILY [facility] Last Admin: 11/24/19 09:15 Dose: 20 meq Senna/Docusate Sodium (Senna Plus) 1 tab PO BEDTIME [facility] Last Admin: 11/23/19 22:04 Dose: 1 tab Warfarin Sodium (Pharmacy To Dose - Warfarin) 1 dose .XX ASDIRECTED [facility] Discontinued Medications Non-Formulary Medication (Ciclopirox/Ure/Camph/Menth/Euc [Ciclopirox 8% Treatment Kit]) 34.6 ml TP DAILY [facility] Non-Formulary Medication ([place]-3 Acid Ethyl Esters [Lovaza]) 2 gm PO BID [facility] Last Admin: 11/21/19 17:58 Dose: Not Given Non-Formulary Medication (Propylene Glycol/Peg 400 [Systane 0.3-0.4% Eye Drops] ) 1 drop EYEBOTH BID [facility] Warfarin Sodium (Coumadin) 5 mg PO ONETIME ONE Stop: 11/17/19 14:01 Last Admin: 11/17/19 13:39 Dose: 5 mg Warfarin Sodium (Coumadin) 5 mg PO ONETIME ONE Stop: 11/18/19 14:01 Last Admin: 11/18/19 14:44 Dose: 5 mg Warfarin Sodium (Coumadin) 5 mg PO ONETIME ONE Stop: 11/19/19 14:01 Last Admin: 11/19/19 15:01 Dose: 5 mg Warfarin Sodium (Coumadin) 5 mg PO ONETIME ONE Stop: 11/20/19 14:01 Last Admin: 11/20/19 13:40 Dose: 5 mg Warfarin Sodium (Coumadin) 2.5 mg PO ONETIME ONE Stop: 11/21/19 14:01 Last Admin: 11/21/19 13:15 Dose: 2.5 mg Warfarin Sodium (Coumadin) 5 mg PO ONETIME ONE Stop: 11/22/19 14:01 Last Admin: 11/22/19 13:19 Dose: 5 mg Warfarin Sodium (Coumadin) 5 mg PO ONETIME ONE Stop: 11/23/19 14:01 Last Admin: 11/23/19 14:31 Dose: 5 mg - Exam General: Reports: Alert, Oriented Lungs: Reports: Clear to Auscultation, Normal Respiratory Effort Cardiovascular: Reports: Irregular Rhythm GI/Abdominal Exam: Normal Bowel Sounds, Soft, Non-Tender Extremities: Normal Inspection, No Pedal Edema Skin: Reports: Warm, Dry, Intact
[2019-11-24] MEDS: Albuterol/Ipratropium 3.0-0.5 MG/3 ML Neb Soln INH PRN (11:27)
[2019-11-24 11:28] VITALS: PULSE 62
[2019-11-24] MEDS ORDERED: Warfarin 5 MG Tab PO ONE (14:00)
== END 2019-11-24 13:30 | disposition home health service (06) | DRG 293 ==
LOC: DL.MS 13:49
PROVIDERS: ADMIT Internal Medicine; ATTEND Internal Medicine
DX: I11.0 Hypertensive heart disease with heart failure (principal); I50.33 Acute on chronic diastolic (congestive) heart failure; E11.9 Type 2 diabetes mellitus without complications; M19.011 Primary osteoarthritis, right shoulder; J44.9 Chronic obstructive pulmonary disease, unspecified; K21.9 Gastro-esophageal reflux disease without esophagitis; R32 Unspecified urinary incontinence; G89.29 Other chronic pain; I48.91 Unspecified atrial fibrillation; M54.9 Dorsalgia, unspecified; Z86.73 Personal history of transient ischemic attack (TIA), and cerebral infarction without residual deficits; Z86.711 Personal history of pulmonary embolism; Z79.01 Long term (current) use of anticoagulants; Z87.891 Personal history of nicotine dependence; Z79.82 Long term (current) use of aspirin; Z79.899 Other long term (current) drug therapy; Z79.84 Long term (current) use of oral hypoglycemic drugs; Z95.0 Presence of cardiac pacemaker
CPT/HCPCS: 36415; 80048; 82962; 83735; 85610; 94640; 94760; 97110-GO; 97110-GP; 97116-GP; 97162-GP; 97165-GO; 97530-GO; 97535-GO; A9270-GY; J7620-GY

== ENCOUNTER 2019-11-27 10:08 | Observation (INO) | payer MEDICARE, BC ==
[2019-11-27] MEDS ORDERED: Sodium Chloride 0.9% 10 ML Syringe FLUSH PRN (10:26)
[2019-11-27] MEDS ORDERED: Metoprolol Tartrate 5 MG/5 ML SDV IVPUSH ONE (10:27)
[2019-11-27] MEDS ORDERED: Metoprolol Succinate 50 MG Tab.ER PO ONE (10:39)
[2019-11-27 11:00] LABS: ANION GAP 14.6
[2019-11-27] MEDS ORDERED: Magnesium Sulfate/Water 2 GM in Premix Bag 1 BAG IV ONE (11:03)
[2019-11-27] MEDS ORDERED: Furosemide 40 MG/4 ML VIAL IVPUSH ONE (11:04)
--- NOTE | 2019-11-27 11:35 | EDM.PDOC ---
Scribed by Mona Quintanilla 11/27/19 1031 for Debbie Reed MD ED HPI GENERAL MEDICAL PROBLEM - General Chief Complaint: Cardiovascular Problem Stated Complaint: AMBULANCE Time Seen by Provider: 11/27/19 10:10 Source of Information: Reports: Patient, EMS, EMS Notes Reviewed, RN, RN Notes Reviewed - History of Present Illness INITIAL COMMENTS - FREE TEXT/NARRATIVE: Patient presents to ER by [facility] with complaint of shortness of breath and dizziness at home. Denies any current complaint pain. She states that dizziness started this morning. She has not taken any meds today because she did not feel like it. Pt was discharged from swing bed here 3 days ago (11/24/19). Onset: Unknown/Unsure Duration: Recurring Location: Reports: Generalized Severity: Severe Improves with: Reports: None Worsens with: Reports: None Associated Symptoms: Reports: No Other Symptoms - Related Data Allergies Allergy/AdvReac Type Severity Reaction Status Date / Time amoxicillin Allergy Hives Verified 11/27/19 10:27 ezetimibe Allergy Cannot Verified 11/27/19 10:27 Remember morphine Allergy Confusion Verified 11/27/19 10:27 moxifloxacin Allergy Cannot Verified 11/27/19 10:27 Remember naproxen [From Aleve] Allergy Cannot Verified 11/27/19 10:27 Remember [id number]-[id number] Reductase Allergy Muscle Verified 11/27/19 10:27 Inhibitor Aches sulindac Allergy Cannot Verified 11/27/19 10:27 Remember Tetracyclines Allergy Cannot Verified 11/27/19 10:27 Remember Home Meds: Home Meds Fenofibrate 160 mg PO .1800 04/20/15 [History] Metoprolol Succinate [Toprol XL] 100 mg PO DAILY 04/20/15 [History] metFORMIN [Glucophage] 1,000 mg PO BIDMEALS 04/20/15 [History] Pantoprazole [ProTONIX] 40 mg PO DAILY PRN 03/24/16 [History] cloNIDine [Catapres] 0.2 mg PO BID 02/10/17 [History] Cholecalciferol (Vitamin D3) [Vitamin D3] 2,000 unit PO BEDTIME 07/25/18 [ History] Calcium Citrate/Vitamin D3 [Citracal + D Maximum Caplet] 1 each PO .1800 [History] Albuterol [Proventil HFA] 2 puff INH Q4H PRN 08/23/19 [History] Albuterol/Ipratropium [DuoNeb 3.0-0.5 MG/3 ML] 3 ml INH Q4H PRN 08/23/19 [ History] Aspirin [Adult Low Dose Aspirin EC] 81 mg PO DAILY 08/23/19 [History] Ciclopirox/Ure/Camph/Menth/Euc [Ciclopirox 8% Treatment Kit] 34.6 ml TP DAILY [History] Ferrous Sulfate 325 mg PO .SUPPER 08/23/19 [History] Folic Acid 1 mg PO DAILY 08/23/19 [History] Magnesium Oxide [Magnesium] 100 mg PO DAILY 08/23/19 [History] [place]-3 Acid Ethyl Esters [Lovaza] 2 gm PO BID 08/23/19 [History] Propylene Glycol/Peg 400 [Systane 0.3-0.4% Eye Drops] 1 drop EYEBOTH BID [History] amLODIPine [Norvasc] 10 mg PO DAILY 08/23/19 [History] hydroCHLOROthiazide [Hydrochlorothiazide] 25 mg PO DAILY 08/23/19 [History] Warfarin [Coumadin] 2.5 mg PO DAILY 11/13/19 [History] oxyCODONE HCl/Acetaminophen [Endocet 7.5-325 mg Tablet] 1 tab PO Q6H PRN [History] Furosemide [Lasix] 40 mg PO DAILY #30 tablet 11/24/19 [Rx] Potassium Chloride [Klor-Con 10] 20 meq PO DAILY #30 tab.er 11/24/19 [Rx] Past Medical History - Past Health History Medical/Surgical History: Denies Medical/Surgical History HEENT History: Reports: Impaired Vision Other HEENT History: wears glasses, is legally blind Cardiovascular History: Reports: Afib, Blood Clots/VTE/DVT, Heart Failure, High Cholesterol, Hypertension, Pacemaker Other Cardiovascular History: pauses in heart beat Respiratory History: Reports: COPD, PE, SOB, Other (See Below) Other Respiratory History: recent intubation Gastrointestinal History: Reports: GERD Other Gastrointestinal History: prolapsed rectum Genitourinary History: Reports: Urinary Incontinence Other Genitourinary History: wears protection [employer] History: Reports: Musculoskeletal History: Reports: Back Pain, Chronic, Osteoarthritis, Other ( See Below) Other Musculoskeletal History: degenerative disc disease Neurological History: Reports: CVA, Headaches, Chronic, Other (See Below) Other Neuro History: cva in 2010 Psychiatric History: Reports: None Endocrine/Metabolic History: Reports: Diabetes, Type II Hematologic History: Reports: None Immunologic History: Reports: None Oncologic (Cancer) History: Reports: None Dermatologic History: Reports: None - Infectious Disease History Infectious Disease History: Reports: Chicken Pox, Measles - Past Surgical History Head Surgeries/Procedures: Reports: None HEENT Surgical History: Reports: None Cardiovascular Surgical History: Reports: Pacer Respiratory Surgical History: Reports: None GI Surgical History: Reports: Other (See Below) Other GI Surgeries/Procedures: Bowel resection Female Surgical History: Reports: Other (See Below) Other Female Surgeries/Procedures: Bladder surgery Musculoskeletal Surgical History: Reports: None Social & Family History - Family History Family Medical History: Noncontributory - Caffeine Use Caffeine Use: Reports: None - Living Situation & Occupation Living situation: Reports: , Alone Occupation: Retired ED ROS GENERAL - Review of Systems Review Of Systems: Comprehensive ROS is negative, except as noted in HPI. ED EXAM, GENERAL - Physical Exam Exam: See Below Exam Limited By: No Limitations General Appearance: Alert, Anxious, Other (Elderly female, non-toxic appearing) Eye Exam: Bilateral Eye: Normal Inspection Nose: Normal Inspection, Normal Mucosa, No Blood Throat/Mouth: Normal Inspection, Normal Lips, Normal Teeth, Normal Gums, Normal Oropharynx, Normal Voice, No Airway Compromise Head: Atraumatic, Normocephalic Neck: Normal Inspection, Supple, Non-Tender, Full Range of Motion Respiratory/Chest: No Respiratory Distress, No Accessory Muscle Use, Chest Non- Tender, Decreased Breath Sounds Cardiovascular: Tachycardia, Irregularly Irregular GI/Abdominal: Normal Bowel Sounds, Soft, Non-Tender, No Organomegaly, No Distention, No Abnormal Bruit, No Mass Extremities: Non-Tender, Normal Capillary Refill Neurological: Alert, Oriented, No Motor/Sensory Deficits Psychiatric: Anxious Skin Exam: Warm, Dry, Intact, Normal Color, No Rash EKG INTERPRETATION EKG Date: 11/27/19 Time: 10:25 Rhythm: Other (sinus rhythm) [place]ler: Normal P-Wave: Present QRS: LBBB (chronic) ST-T: Normal QT: Normal Comparison: No Change Course - Vital Signs Last Recorded V/S: Last Vital Signs Temp 98.5 F 11/27/19 10:10 Pulse 95 11/27/19 10:43 Resp 18 11/27/19 10:10 BP 132/68 11/27/19 10:43 Pulse Ox 99 11/27/19 10:10 - Orders/Labs/Meds Orders: Active Orders 24 hr Category Date Time Status EKG 12 Lead [EKG Documentation Completion] [RC] STAT Care 11/27/19 10:25 Active Peripheral IV Care [RC] . DIRECTED Care 11/27/19 10:26 Active Chest 1V Frontal [CR] Stat Exams 11/27/19 10:25 Taken UA RFX MICHAEL AND CULT IF INDIC [URIN] Stat Lab 11/27/19 10:26 Ordered Magnesium Sulfate/Water [Magnesium Sulfate in Water Med 11/27/19 11:03 Active Premix] 2 gm Premix Bag 1 bag IV ONETIME Sodium Chloride 0.9% [Saline Flush] Med 11/27/19 10:26 Active 10 ml FLUSH ASDIRECTED PRN Peripheral IV Insertion Adult [OM.PC] Stat Oth 11/27/19 10:25 Ordered Medication Orders Magnesium Sulfate 2 gm/ Premix 50 mls @ 25 mls/hr IV ONETIME ONE Stop: 11/27/19 13:02 Last Admin: 11/27/19 11:21 Dose: 25 mls/hr Sodium Chloride (Saline Flush) 10 ml FLUSH ASDIRECTED PRN PRN Reason: Keep Vein Open Last Admin: 11/27/19 10:33 Dose: 10 ml Labs: Laboratory Tests 11/27/19 11/27/19 11/27/19 Range/Units 10:34 10:34 10:34 WBC 10.0 (5.0-10.0) 10^3/uL RBC 4.03 L (4.2-5.4) 10^6/uL Hgb 10.1 L (12.0-16.0) g/dL Hct 30.9 L (37.0-47.0) % MCV 76.7 L D (80-100) fL MCH 25.1 L (27.0-34.0) pg MCHC 32.7 L (33.0-35.0) g/dL Plt Count 400 D (150-450) 10^3/uL Neut % (Auto) 68.1 (42.2-75.2) % Lymph % (Auto) 14.2 L (20.5-50.1) % [place] % (Auto) 6.3 (2-8) % Eos % (Auto) 10.4 H (1.0-3.0) % Baso % (Auto) 1.0 (0.0-1.0) % PT 18.7 H (9.0-12.0) SEC INR 1.9 H (0.9-1.2) Sodium 132 L (135-145) mmol/L Potassium 3.6 (3.6-5.0) mmol/L Chloride 95 L (101-111) mmol/L Carbon Dioxide 26.0 (21.0-31.0) mmol/L Anion Gap 14.6 BUN 42 H (7-18) mg/dL Creatinine 1.0 (0.6-1.3) mg/dL Est Cr Clr Drug Dosing 34.99 mL/min Estimated GFR (MDRD) 52 BUN/Creatinine Ratio 42.00 Glucose 158 H (74-105) mg/dL Calcium 10.8 H (8.4-10.2) mg/dl Magnesium 1.5 L (1.8-2.5) mg/dL Total Bilirubin 0.8 (0.2-1.0) mg/dL AST 24 (10-42) IU/L ALT 19 (10-60) IU/L Alkaline Phosphatase 37 L (42-121) IU/L Troponin I 0.02 (0.00-0.02) ng/ml B-Natriuretic Peptide 526 H (0-100) pg/ml Total Protein 7.1 (6.7-8.2) g/dl Albumin 3.9 (3.2-5.5) g/dl Globulin 3.2 Albumin/Globulin Ratio 1.22 TSH, Ultra Sensitive (0.45-5.33) uIu/mL 11/27/19 Range/Units 10:34 WBC (5.0-10.0) 10^3/uL RBC (4.2-5.4) 10^6/uL Hgb (12.0-16.0) g/dL Hct (37.0-47.0) % MCV (80-100) fL MCH (27.0-34.0) pg MCHC (33.0-35.0) g/dL Plt Count (150-450) 10^3/uL Neut % (Auto) (42.2-75.2) % Lymph % (Auto) (20.5-50.1) % [place] % (Auto) (2-8) % Eos % (Auto) (1.0-3.0) % Baso % (Auto) (0.0-1.0) % PT (9.0-12.0) SEC INR (0.9-1.2) Sodium (135-145) mmol/L Potassium (3.6-5.0) mmol/L Chloride (101-111) mmol/L Carbon Dioxide (21.0-31.0) mmol/L Anion Gap BUN (7-18) mg/dL Creatinine (0.6-1.3) mg/dL Est Cr Clr Drug Dosing mL/min Estimated GFR (MDRD) BUN/Creatinine Ratio Glucose (74-105) mg/dL Calcium (8.4-10.2) mg/dl Magnesium (1.8-2.5) mg/dL Total Bilirubin (0.2-1.0) mg/dL AST (10-42) IU/L ALT (10-60) IU/L Alkaline Phosphatase (42-121) IU/L Troponin I (0.00-0.02) ng/ml B-Natriuretic Peptide (0-100) pg/ml Total Protein (6.7-8.2) g/dl Albumin (3.2-5.5) g/dl Globulin Albumin/Globulin Ratio TSH, Ultra Sensitive 1.13 (0.45-5.33) uIu/mL Meds: Medications Generic Name Dose Route Start Last Admin Trade Name Freq PRN Reason Stop Dose Admin Magnesium Sulfate 2 gm/ Premix 50 mls @ 25 mls/hr 11/27/19 11:03 11/27/19 11: 21 IV 11/27/19 13:02 25 mls/hr ONETIME ONE Administration Sodium Chloride 10 ml 11/27/19 10:26 11/27/19 10:33 Saline Flush FLUSH 10 ml ASDIRECTED PRN Administration Keep Vein Open Discontinued Medications Generic Name Dose Route Start Last Admin Trade Name Freq PRN Reason Stop Dose Admin Furosemide 40 mg 11/27/19 11:04 11/27/19 11:11 Lasix IVPUSH 11/27/19 11:05 40 mg NOW ONE Administration Metoprolol Succinate 100 mg 11/27/19 10:39 11/27/19 10:43 Toprol Xl PO 11/27/19 10:40 100 mg ONETIME ONE Administration Metoprolol Tartrate 5 mg 11/27/19 10:27 11/27/19 10:32 Lopressor IVPUSH 11/27/19 10:28 5 mg ONETIME ONE Administration - Radiology Interpretation Free Text/Narrative:: [facility] [place] [facility] Final Radiology Report Call: [phone] assistance Online chat: [email or web address] Name: SANGEETHA BAZZI Age: 89Years F Date: 11/27/2019 SSN: -- : [id number] Study: XR CHEST 1 VIEW FRONTAL Requesting Physician: DEBBIE REED Images: 1 Addl Studies: Provided Clinical History: Contrast: Contrast Medium: Contrast Amount: Contrast Method: CONFIDENTIALITY STATEMENT This report is intended only for use by the referring physician, and only in accordance with law. If you received this in error, call [phone]. Page 1 of 1 PROCEDURE INFORMATION: Exam: XR Chest, 1 View Exam date and time: 11/27/2019 10:40 AM Age: 89 years old Clinical indication: Chest pain TECHNIQUE: Imaging protocol: XR of the chest Views: 1 view. COMPARISON: CR Chest 1V Frontal 11/12/2019 7:20 PM FINDINGS: Tubes, catheters and devices: Pacemaker in expected location. Lungs: Left basilar atelectasis. No infiltrates or masses. Pleural space: Unremarkable. No pleural effusion. No pneumothorax. Heart/Mediastinum: Unremarkable. No cardiomegaly. Bones/joints: Skeletal degenerative changes are noted. IMPRESSION: No acute disease. Thank you for allowing us to participate in the care of your patient. Dictated and Authenticated by: Pio Enriquez MD 11/27/2019 11:22 AM Central Time ([place] & [place]) Departure - Departure Time of Disposition: 11:34 (admitted to Dr. 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, Tachy-kelly syndrome CHF (congestive heart failure) Qualifiers: Heart failure type: unspecified Heart failure chronicity: acute Qualified Code( s): I50.9 - Heart failure, unspecified - Discharge Information *PRESCRIPTION DRUG MONITORING PROGRAM REVIEWED*: Not Applicable *COPY OF PRESCRIPTION DRUG MONITORING REPORT IN PATIENT ERWIN: Not Applicable Forms: ED Department Discharge Sepsis Event Note - Focused Exam Vital Signs: Vital Signs Temp Pulse Pulse Resp BP BP Pulse Ox 11/27/19 10:43 95 132/68 11/27/19 10:32 108 H 162/132 H 11/27/19 10:10 98.5 F 108 H 18 151/68 H 99 Date Exam was Performed: 11/27/19 Time Exam was Performed: 11:33 - My Orders Last 24 Hours: My Active Orders 11/27/19 10:25 EKG 12 Lead [EKG Documentation Completion] [RC] STAT Chest 1V Frontal [CR] Stat Peripheral IV Insertion Adult [OM.PC] Stat 11/27/19 10:26 Peripheral IV Care [RC] . DIRECTED UA RFX MICHAEL AND CULT IF INDIC [URIN] Stat Sodium Chloride 0.9% [Saline Flush] 10 ml FLUSH ASDIRECTED PRN 11/27/19 11:03 Magnesium Sulfate/Water [Magnesium Sulfate in Water Premix] 2 gm Premix Bag 1 bag IV ONETIME - Assessment/Plan Last 24 Hours: My Active Orders 11/27/19 10:25 EKG 12 Lead [EKG Documentation Completion] [RC] STAT Chest 1V Frontal [CR] Stat Peripheral IV Insertion Adult [OM.PC] Stat 11/27/19 10:26 Peripheral IV Care [RC] . DIRECTED UA RFX MICHAEL AND CULT IF INDIC [URIN] Stat Sodium Chloride 0.9% [Saline Flush] 10 ml FLUSH ASDIRECTED PRN 11/27/19 11:03 Magnesium Sulfate/Water [Magnesium Sulfate in Water Premix] 2 gm Premix Bag 1 bag IV ONETIME I have read and agree with the documentation that has been completed regarding this visit. By signing this record, I attest that the documentation was completed in my physical presence and is an accurate record of the encounter.
[2019-11-27] MEDS ORDERED: Acetaminophen 325 MG Tab PO PRN (12:51)
[2019-11-27] MEDS ORDERED: Ondansetron 4 MG Tab.DIS PO PRN (12:51)
[2019-11-27] MEDS ORDERED: Albuterol 6.7 GM Inhaler INH PRN (12:53)
[2019-11-27] MEDS ORDERED: Pantoprazole 40 MG Tab.CR PO PRN (12:53)
[2019-11-27] MEDS ORDERED: [UNRECOGNIZED DRUG - OTHER] PO PRN (12:53)
[2019-11-27] MEDS ORDERED: Albuterol/Ipratropium 3.0-0.5 MG/3 ML Neb Soln INH PRN (12:53)
[2019-11-27] MEDS ORDERED: ACETAMINOPHEN PO PRN ×2 (12:53→14:56)
[2019-11-27] MEDS ORDERED: OXYCODONE PO PRN (12:53)
[2019-11-27] MEDS ORDERED: Metoprolol Succinate 50 MG Tab.ER PO SCH (13:00)
[2019-11-27] MEDS ORDERED: IPRATROPIUM INH PRN (14:05)
[2019-11-27] MEDS ORDERED: ALBUTEROL INH PRN (14:05)
[2019-11-27] MEDS ORDERED: METOPROLOL SUC PO SCH (14:21)
[2019-11-27] MEDS ORDERED: Pantoprazole 40 MG Tab.CR **OWN MED PO PRN (14:24)
[2019-11-27] MEDS ORDERED: [UNRECOGNIZED DRUG - OTHER] PO PRN (14:56)
[2019-11-27] MEDS ORDERED: OXYCODONE HCL PO PRN (14:56)
[2019-11-27] MEDS ORDERED: WARFARIN 2.5 MG PO ONE (15:15)
--- NOTE | 2019-11-27 16:05 | PCM.HP ---
H&P History of Present Illness - General Date of Service: 11/27/19 Admit Problem/Dx: Admission Diagnosis/Problem Admission Diagnosis/Problem Presyncope, afib with RVR - History of Present Illness Initial Comments - Free Text/Narative: 89-year-old female with multiple medical problems including atrial fibrillation status post pacemaker placement, history of pulmonary embolism, hypertension, COPD, diabetes mellitus type 2 who was recently discharged from Swing bed ( after SNF/assisted living was recommended and patient and family declined) who presented to the ED with presyncope, lightheadedness in the setting of Afib with RVR. patient said that she was in her usual state of health and was compliant with medical regimen. she didn't feel well this morning and skipped her morning metoprolol. patient was also complaining of lightheadedness but denied any chest pain. she was found to have a HR of 160s according to daughter. she came to the ED for further care. in the ED, patient was tachycardic and was given metoprolol IV. her HR was controlled and she was sent for further observation. - Related Data Allergies/Adverse Reactions: Allergies Allergy/AdvReac Type Severity Reaction Status Date / Time amoxicillin Allergy Hives Verified 11/27/19 11:42 ezetimibe Allergy Cannot Verified 11/27/19 11:42 Remember morphine Allergy Confusion Verified 11/27/19 11:42 moxifloxacin Allergy Cannot Verified 11/27/19 11:42 Remember naproxen [From Aleve] Allergy Cannot Verified 11/27/19 11:42 Remember Ypqqogn-Bkb-Mrl Reductase Allergy Muscle Verified 11/27/19 11:42 Inhibitor Aches sulindac Allergy Cannot Verified 11/27/19 11:42 Remember Tetracyclines Allergy Cannot Verified 11/27/19 11:42 Remember Home Medications: Home Meds Fenofibrate 160 mg PO BEDTIME 04/20/15 [History] Metoprolol Succinate [Toprol XL] 100 mg PO DAILY 04/20/15 [History] metFORMIN [Glucophage] 1,000 mg PO BIDMEALS 04/20/15 [History] Pantoprazole [ProTONIX] 40 mg PO DAILY PRN 03/24/16 [History] cloNIDine [Catapres] 0.2 mg PO BID 02/10/17 [History] Cholecalciferol (Vitamin D3) [Vitamin D3] 2,000 unit PO DAILY 07/25/18 [History] Calcium Citrate/Vitamin D3 [Citracal + D Maximum Caplet] 1 each PO BEDTIME 03/02 [History] Albuterol [Proventil HFA] 2 puff INH Q4H PRN 08/23/19 [History] Albuterol/Ipratropium [DuoNeb 3.0-0.5 MG/3 ML] 3 ml INH Q4H PRN 08/23/19 [ History] Aspirin [Adult Low Dose Aspirin EC] 81 mg PO DAILY 08/23/19 [History] Ciclopirox/Ure/Camph/Menth/Euc [Ciclopirox 8% Treatment Kit] 34.6 ml TP DAILY [History] Ferrous Sulfate 325 mg PO .SUPPER 08/23/19 [History] Folic Acid 1 mg PO DAILY 08/23/19 [History] Magnesium Oxide [Magnesium] 100 mg PO DAILY 08/23/19 [History] Strong-3 Acid Ethyl Esters [Lovaza] 2 gm PO BID 08/23/19 [History] Propylene Glycol/Peg 400 [Systane 0.3-0.4% Eye Drops] 1 drop EYEBOTH BID [History] amLODIPine [Norvasc] 10 mg PO BEDTIME 08/23/19 [History] hydroCHLOROthiazide [Hydrochlorothiazide] 25 mg PO DAILY 08/23/19 [History] Warfarin [Coumadin] 2.5 mg PO DAILY 11/13/19 [History] Furosemide [Lasix] 40 mg PO DAILY #30 tablet 11/24/19 [Rx] Potassium Chloride [Klor-Con 10] 20 meq PO DAILY #30 tab.er 11/24/19 [Rx] Menthol/Methyl Salicylate [Icy Hot Cream] 85 gm TOP QID PRN 11/27/19 [History] oxyCODONE HCl/Acetaminophen [Percocet 7.5-325 mg Tablet] 0.5 tab PO ASDIRECTED PRN 11/27/19 [History] Past Medical History - Past Health History Medical/Surgical History: Denies Medical/Surgical History HEENT History: Reports: Impaired Vision Other HEENT History: wears glasses, is legally blind Cardiovascular History: Reports: Afib, Blood Clots/VTE/DVT, Heart Failure, High Cholesterol, Hypertension, Pacemaker Other Cardiovascular History: pauses in heart beat Respiratory History: Reports: COPD, PE, SOB, Other (See Below) Other Respiratory History: recent intubation Gastrointestinal History: Reports: GERD Other Gastrointestinal History: prolapsed rectum Genitourinary History: Reports: Urinary Incontinence Other Genitourinary History: wears protection [employer] History: Reports: Musculoskeletal History: Reports: Back Pain, Chronic, Osteoarthritis, Other ( See Below) Other Musculoskeletal History: degenerative disc disease Neurological History: Reports: CVA, Headaches, Chronic, Other (See Below) Other Neuro History: cva in 2010 Psychiatric History: Reports: None Endocrine/Metabolic History: Reports: Diabetes, Type II Hematologic History: Reports: None Immunologic History: Reports: None Oncologic (Cancer) History: Reports: None Dermatologic History: Reports: None - Infectious Disease History Infectious Disease History: Reports: Chicken Pox, Measles - Past Surgical History Head Surgeries/Procedures: Reports: None HEENT Surgical History: Reports: None Cardiovascular Surgical History: Reports: Pacer Respiratory Surgical History: Reports: None GI Surgical History: Reports: Other (See Below) Other GI Surgeries/Procedures: Bowel resection Female Surgical History: Reports: Other (See Below) Other Female Surgeries/Procedures: Bladder surgery Musculoskeletal Surgical History: Reports: None Social & Family History - Family History Family Medical History: Noncontributory - Tobacco Use Smoking Status *Q: Never Smoker Second Hand Smoke Exposure: No - Caffeine Use Caffeine Use: Reports: Coffee - Recreational Drug Use Recreational Drug Use: No - Living Situation & Occupation Living situation: Reports: , Alone Occupation: Retired H&P Review of Systems - Review of Systems: Review Of Systems: Comprehensive ROS is negative, except as noted in HPI. Exam - Exam Exam: See Below - Vital Signs Vital Signs: Last Vital Signs Temp 36.8 C 11/27/19 12:51 Pulse 78 11/27/19 12:51 Resp 20 11/27/19 12:51 BP 122/47 L 11/27/19 12:51 Pulse Ox 96 11/27/19 12:51 Weight: 67.721 kg - Exam General: Alert, Oriented, 4 Lungs: Clear to Auscultation, Normal Respiratory Effort Cardiovascular: Irregular Rhythm GI/Abdominal Exam: Normal Bowel Sounds, Soft, Non-Tender Extremities: Normal Inspection, No Pedal Edema Skin: Warm, Dry, Intact Psychiatric: Alert, Normal Affect, Normal Mood - Patient Data Lab Results Last 24 hrs: Laboratory Results - last 24 hr 11/27/19 11/27/19 11/27/19 Range/Units 10:34 10:34 10:34 WBC 10.0 (5.0-10.0) 10^3/uL RBC 4.03 L (4.2-5.4) 10^6/uL Hgb 10.1 L (12.0-16.0) g/dL Hct 30.9 L (37.0-47.0) % MCV 76.7 L D (80-100) fL MCH 25.1 L (27.0-34.0) pg MCHC 32.7 L (33.0-35.0) g/dL Plt Count 400 D (150-450) 10^3/uL Neut % (Auto) 68.1 (42.2-75.2) % Lymph % (Auto) 14.2 L (20.5-50.1) % Sunflower % (Auto) 6.3 (2-8) % Eos % (Auto) 10.4 H (1.0-3.0) % Baso % (Auto) 1.0 (0.0-1.0) % PT 18.7 H (9.0-12.0) SEC INR 1.9 H (0.9-1.2) Sodium 132 L (135-145) mmol/L Potassium 3.6 (3.6-5.0) mmol/L Chloride 95 L (101-111) mmol/L Carbon Dioxide 26.0 (21.0-31.0) mmol/L Anion Gap 14.6 BUN 42 H (7-18) mg/dL Creatinine 1.0 (0.6-1.3) mg/dL Est Cr Clr Drug Dosing 34.99 mL/min Estimated GFR (MDRD) 52 BUN/Creatinine Ratio 42.00 Glucose 158 H (74-105) mg/dL Calcium 10.8 H (8.4-10.2) mg/dl Magnesium 1.5 L (1.8-2.5) mg/dL Total Bilirubin 0.8 (0.2-1.0) mg/dL AST 24 (10-42) IU/L ALT 19 (10-60) IU/L Alkaline Phosphatase 37 L (42-121) IU/L Troponin I 0.02 (0.00-0.02) ng/ml B-Natriuretic Peptide 526 H (0-100) pg/ml Total Protein 7.1 (6.7-8.2) g/dl Albumin 3.9 (3.2-5.5) g/dl Globulin 3.2 Albumin/Globulin Ratio 1.22 TSH, Ultra Sensitive (0.45-5.33) uIu/mL Urine Color (YELLOW) Urine Appearance (CLEAR) Urine pH (5.0-9.0) Ur Specific [place] (1.005-1.030) Urine Protein (NEGATIVE) Urine Glucose (UA) (NEGATIVE) Urine Ketones (NEGATIVE) Urine Occult Blood (NEGATIVE) Urine Nitrite (NEGATIVE) Urine Bilirubin (NEGATIVE) Urine Urobilinogen (0.2-1.0) mg/dL Ur Leukocyte Esterase (NEGATIVE) Urine RBC /HPF Urine WBC (0-5/HPF) /HPF Ur Epithelial Cells (NOT SEEN) /HPF Urine Bacteria (0-FEW/HPF) /HPF Urine Mucus (NOT SEEN) /LPF 11/27/19 11/27/19 Range/Units 10:34 11:55 WBC (5.0-10.0) 10^3/uL RBC (4.2-5.4) 10^6/uL Hgb (12.0-16.0) g/dL Hct (37.0-47.0) % MCV (80-100) fL MCH (27.0-34.0) pg MCHC (33.0-35.0) g/dL Plt Count (150-450) 10^3/uL Neut % (Auto) (42.2-75.2) % Lymph % (Auto) (20.5-50.1) % Sunflower % (Auto) (2-8) % Eos % (Auto) (1.0-3.0) % Baso % (Auto) (0.0-1.0) % PT (9.0-12.0) SEC INR (0.9-1.2) Sodium (135-145) mmol/L Potassium (3.6-5.0) mmol/L Chloride (101-111) mmol/L Carbon Dioxide (21.0-31.0) mmol/L Anion Gap BUN (7-18) mg/dL Creatinine (0.6-1.3) mg/dL Est Cr Clr Drug Dosing mL/min Estimated GFR (MDRD) BUN/Creatinine Ratio Glucose (74-105) mg/dL Calcium (8.4-10.2) mg/dl Magnesium (1.8-2.5) mg/dL Total Bilirubin (0.2-1.0) mg/dL AST (10-42) IU/L ALT (10-60) IU/L Alkaline Phosphatase (42-121) IU/L Troponin I (0.00-0.02) ng/ml B-Natriuretic Peptide (0-100) pg/ml Total Protein (6.7-8.2) g/dl Albumin (3.2-5.5) g/dl Globulin Albumin/Globulin Ratio TSH, Ultra Sensitive 1.13 (0.45-5.33) uIu/mL Urine Color Yellow (YELLOW) Urine Appearance Clear (CLEAR) Urine pH 7.5 (5.0-9.0) Ur Specific [place] 1.020 (1.005-1.030) Urine Protein Trace H (NEGATIVE) Urine Glucose (UA) Negative (NEGATIVE) Urine Ketones Negative (NEGATIVE) Urine Occult Blood Negative (NEGATIVE) Urine Nitrite Negative (NEGATIVE) Urine Bilirubin Negative (NEGATIVE) Urine Urobilinogen 0.2 (0.2-1.0) mg/dL Ur Leukocyte Esterase Negative (NEGATIVE) Urine RBC Not seen /HPF Urine WBC Not seen (0-5/HPF) /HPF Ur Epithelial Cells Rare (NOT SEEN) /HPF Urine Bacteria Not seen (0-FEW/HPF) /HPF Urine Mucus Not seen (NOT SEEN) /LPF Result Diagrams: 11/27/19 10:34 11/27/19 10:34 Problem List Initiated/Reviewed/Updated: Yes Orders Last 24hrs: Active Orders 24 hr Category Date Time Status Admission Diagnosis [ADT] Routine ADT 11/27/19 11:41 Ordered Patient Status [ADT] Routine ADT 11/27/19 11:41 Active Blood Glucose Check, Bedside [] WITHMEALSANDBED Care 11/27/19 12:51 Active EKG 12 Lead [EKG Documentation Completion] [RC] STAT Care 11/27/19 10:25 Active Oxygen Therapy [RC] PRN Care 11/27/19 12:51 Active Peripheral IV Care [] ,20 Care 11/27/19 10:26 Active Telemetry Monitoring [Cardiac Monitoring] [RC] . Care 11/27/19 12:52 Active DIRECTED Up With Assistance [RC] ASDIRECTED Care 11/27/19 12:51 Active VTE/DVT Education [RC] PER UNIT ROUTINE Care 11/27/19 12:51 Active Vital Signs [RC] Q4H Care 11/27/19 12:51 Active PT Evaluation and Treatment [CONS] Routine Cons 11/27/19 12:51 Active Consistent Carbohydrate Diet [DIET] Diet 11/27/19 Dinner Active BASIC METABOLIC PANEL,BMP [CHEM] AM Lab 11/28/19 05:11 Ordered CBC WITH AUTO DIFF [HEME] AM Lab 11/28/19 05:11 Ordered INR,PT,PROTHROMBIN TIME [COAG] Routine Lab 11/28/19 06:00 Ordered Acetaminophen [Tylenol] Med 11/27/19 12:51 Active 650 mg PO Q4H PRN Albuterol [Proventil HFA] Med 11/27/19 12:53 Active 0 gm INH Q4H PRN Albuterol/Ipratropium [DuoNeb 3.0-0.5 MG/3 ML] Med 11/27/19 14:05 Active 3 ml INH Q4H PRN Aspirin [Halfprin] Med 11/28/19 09:00 Active 81 mg PO DAILY Fenofibrate [Fenofibrate] Med 11/27/19 21:00 Active 0 mg PO BEDTIME Ferrous Sulfate Med 11/27/19 18:00 Active 325 mg PO DAILY@1800 Folic Acid Med 11/28/19 09:00 Active 1 mg PO DAILY Furosemide [Lasix] Med 11/28/19 09:00 Active 40 mg PO DAILY Menthol/Methyl Salicylate [Icy Hot Cream] Med 11/27/19 14:55 Active 0 gm TOP QID PRN Ondansetron [Zofran ODT] Med 11/27/19 12:51 Active 4 mg PO Q4H PRN Pantoprazole [ProTONIX] Med 11/28/19 06:00 Active 40 mg PO ACBREAKFAST Patient's Own Medication [Ptom] Med 11/27/19 21:00 Active 0 each PO BEDTIME Patient's Own Medication [Ptom] Med 11/27/19 18:00 Active 0 each PO BIDMEALS Patient's Own Medication [Ptom] Med 11/27/19 14:21 Active 0 each PO DAILY Patient's Own Medication [Ptom] Med 11/28/19 09:00 Active 0 each PO DAILY Patient's Own Medication [Ptom] Med 11/27/19 21:00 Active 1 each PO BEDTIME Pharmacy to Dose - Warfarin Med 11/27/19 13:00 Pending 1 dose .XX ASDIRECTED Potassium Chloride [Klor-Con 10] Med 11/28/19 09:00 Active 20 meq PO DAILY Sodium Chloride 0.9% [Saline Flush] Med 11/27/19 10:26 Active 10 ml FLUSH ASDIRECTED PRN cloNIDine [Catapres] Med 11/27/19 21:00 Active 0.2 mg PO BID hydroCHLOROthiazide Med 11/28/19 09:00 Active 25 mg PO DAILY oxyCODONE HCl/Acetaminophen [Percocet 7.5-325 mg Tablet Med 11/27/19 14:56 Active ] 0.5 tab PO Q8H PRN Peripheral IV Insertion Adult [OM.PC] Stat Oth 11/27/19 10:25 Ordered Resuscitation Status Routine Resus Stat 11/27/19 12:51 Ordered Medication Orders Acetaminophen (Tylenol) 650 mg PO Q4H PRN PRN Reason: Pain (Mild 1-3)/fever Albuterol (Proventil Hfa) 0 gm INH Q4H PRN PRN Reason: Wheezing Albuterol/Ipratropium (Duoneb 3.0-0.5 Mg/3 Ml) 3 ml INH Q4H PRN PRN Reason: Wheezing Aspirin (Halfprin) 81 mg PO DAILY DREA Clonidine HCl (Catapres) 0.2 mg PO BID DREA Ferrous Sulfate (Ferrous Sulfate) 325 mg PO DAILY@1800 [facility] Folic Acid (Folic Acid) 1 mg PO DAILY DREA Furosemide (Lasix) 40 mg PO DAILY DREA Hydrochlorothiazide (Hydrochlorothiazide) 25 mg PO DAILY DREA Methyl Salicylate (Icy Hot Cream) 0 gm TOP QID PRN PRN Reason: Pain (mild 1-3) Fenofibrate 160 Mg (*Own Med) 0 mg PO BEDTIME DREA Oxycodone Hcl/Acetamin 7.5/325mg Own Med C-Ii Substance 0.5 tab PO Q8H PRN PRN Reason: Pain Ondansetron HCl (Zofran Odt) 4 mg PO Q4H PRN PRN Reason: nausea, able to take PO Pantoprazole Sodium (Protonix) 40 mg PO ACBREAKFAST [facility] Cholecalciferol 50mcg Tabs *Own Med 0 each PO DAILY DREA Amlodipine 10mg Tab (Own Med) 0 each PO BEDTIME DREA Calcium Citrate + Vit D 400mg/12.5mcg Own Med 1 each PO BEDTIME DREA Metformin 1000mg Tab (Own Med) 0 each PO BIDMEALS DREA Metoprolol Suc Er 100mg Tab Own Med 0 each PO DAILY DREA Potassium Chloride (Klor-Con 10) 20 meq PO DAILY DREA Sodium Chloride (Saline Flush) 10 ml FLUSH ASDIRECTED PRN PRN Reason: Keep Vein Open Last Admin: 11/27/19 10:33 Dose: 10 ml Warfarin Sodium (Pharmacy To Dose - Warfarin) 1 dose .XX ASDIRECTED [facility] Assessment/Plan Comment:: #. Afib with RVR compliance seems to be questionable, as patient was found to have multiple doses of clonidine in the same container will monitor on telemetry restart home metoprolol XL may need AVN ablation if she continues to have breakthrough tachycardia, patient already has a pacemaker as backup for bradycardia pharmacy to dose warfarin #. Recent suspected pulmonary embolism continue warfarin #. Diabetes mellitus type 2 Monitor blood sugar before meals and at bedtime #. Hypertension Blood pressure is within acceptable limits #. Generalized aches/pain Has right shoulder arthritis - On Oxycodone - Continue physical and occupational therapy
[2019-11-27] MEDS: METHYL SALICYLATE TOP PRN (16:37)
[2019-11-27] MEDS: MENTHOL TOP PRN (16:37)
[2019-11-27] MEDS: METFORMIN 1000 MG PO SCH (17:44)
[2019-11-27] MEDS ORDERED: metFORMIN 500 MG Tab PO SCH (18:00)
[2019-11-27] MEDS ORDERED: Ferrous Sulfate 325 MG Tab **OWN MED PO SCH (18:00)
[2019-11-27] MEDS: cloNIDine 0.1 MG Tab PO SCH (20:12)
[2019-11-27] MEDS ORDERED: CALCIUM CITRATE PO SCH (21:00)
[2019-11-27] MEDS ORDERED: Calcium Carbonate/Vitamin D3 1250 MG-200 Unit Tab PO SCH (21:00)
[2019-11-27] MEDS ORDERED: AMLODIPINE 10 MG PO SCH (21:00)
[2019-11-27] MEDS ORDERED: FENOFIBRATE 160 MG PO SCH (21:00)
[2019-11-27] MEDS ORDERED: amLODIPine 5 MG Tab PO SCH (21:00)
[2019-11-27] MEDS ORDERED: CHOLECALCIFEROL PO SCH (21:00)
[2019-11-28] MEDS ORDERED: Pantoprazole 40 MG Tab.CR **OWN MED PO SCH (06:00)
[2019-11-28 06:49] LABS: ANION GAP 16.6
[2019-11-28] MEDS: cloNIDine 0.1 MG Tab PO SCH (08:55)
[2019-11-28] MEDS: METFORMIN 1000 MG PO SCH (08:56)
[2019-11-28] MEDS: METHYL SALICYLATE TOP PRN (09:00)
[2019-11-28] MEDS ORDERED: Aspirin 81 MG Tab.EC **OWN MED PO SCH (09:00)
[2019-11-28] MEDS ORDERED: Hydrochlorothiazide 25 MG Tab **OWN MED PO SCH (09:00)
[2019-11-28] MEDS ORDERED: Potassium Chloride 10 MEQ Tab.ER **OWN MED PO SCH (09:00)
[2019-11-28] MEDS ORDERED: Aspirin 81 MG Tab.EC PO SCH (09:00)
[2019-11-28] MEDS ORDERED: Furosemide 20 MG Tab **OWN MED PO SCH (09:00)
[2019-11-28] MEDS ORDERED: [UNRECOGNIZED DRUG - OTHER] TP SCH (09:00)
[2019-11-28] MEDS: MENTHOL TOP PRN (09:00)
[2019-11-28] MEDS ORDERED: Folic Acid 1 MG Tab **OWN MED PO SCH (09:00)
[2019-11-28] MEDS ORDERED: CHOLECALCIFEROL 50 MCG PO SCH (09:00)
--- NOTE | 2019-11-28 10:42 | PCM.DCSUM1 ---
Discharge Summary - Hospital Course Free Text/Narrative:: 89-year-old female with multiple medical problems including atrial fibrillation status post pacemaker placement, history of pulmonary embolism, hypertension, COPD, diabetes mellitus type 2 who was recently discharged from Swing bed ( after SNF/assisted living was recommended and patient and family declined) who presented to the ED with presyncope, lightheadedness in the setting of Afib with RVR in the setting of noncompliance. Patient home medications were restarted, she was monitored on telemetry without any breakthrough RVR. Patient again declined placement. She was discharged home with home health in stable condition. - Discharge Data Discharge Date: 11/28/19 Discharge Disposition: Home, W Home Health Agency Condition: Good - Referral to Home Health Date of Face to Face Encounter: 11/28/19 Reason for Homebound Status: shortness of breath due to CHF. patient needs fci for medication regimen and usage, PT for home exercise program/ strengthening, and OT for home safety evaluation and equipment needs. she requires a taxing effort to leave home and needs assistance of 1 and front wheeled walker for ambulation. Primary Care Physician: Umberto Weeks MD Skilled Need: as above - Patient Summary/Data Consults: Consultations 11/27/19 12:51 PT Evaluation and Treatment [CONS] Routine - Discharge Plan *PRESCRIPTION DRUG MONITORING PROGRAM REVIEWED*: Not Applicable *COPY OF PRESCRIPTION DRUG MONITORING REPORT IN PATIENT ERWIN: Not Applicable Home Medications: Home Meds Fenofibrate 160 mg PO BEDTIME 04/20/15 [History] Metoprolol Succinate [Toprol XL] 100 mg PO DAILY 04/20/15 [History] metFORMIN [Glucophage] 1,000 mg PO BIDMEALS 04/20/15 [History] Pantoprazole [ProTONIX] 40 mg PO DAILY PRN 03/24/16 [History] cloNIDine [Catapres] 0.2 mg PO BID 02/10/17 [History] Cholecalciferol (Vitamin D3) [Vitamin D3] 2,000 unit PO DAILY 07/25/18 [History] Calcium Citrate/Vitamin D3 [Citracal + D Maximum Caplet] 1 each PO BEDTIME 03/02 [History] Albuterol [Proventil HFA] 2 puff INH Q4H PRN 08/23/19 [History] Albuterol/Ipratropium [DuoNeb 3.0-0.5 MG/3 ML] 3 ml INH Q4H PRN 08/23/19 [ History] Aspirin [Adult Low Dose Aspirin EC] 81 mg PO DAILY 08/23/19 [History] Ciclopirox/Ure/Camph/Menth/Euc [Ciclopirox 8% Treatment Kit] 34.6 ml TP DAILY [History] Ferrous Sulfate 325 mg PO .SUPPER 08/23/19 [History] Folic Acid 1 mg PO DAILY 08/23/19 [History] Magnesium Oxide [Magnesium] 100 mg PO DAILY 08/23/19 [History] Basile-3 Acid Ethyl Esters [Lovaza] 2 gm PO BID 08/23/19 [History] Propylene Glycol/Peg 400 [Systane 0.3-0.4% Eye Drops] 1 drop EYEBOTH BID [History] amLODIPine [Norvasc] 10 mg PO BEDTIME 08/23/19 [History] hydroCHLOROthiazide [Hydrochlorothiazide] 25 mg PO DAILY 08/23/19 [History] Warfarin [Coumadin] 2.5 mg PO DAILY 11/13/19 [History] Furosemide [Lasix] 40 mg PO DAILY #30 tablet 11/24/19 [Rx] Potassium Chloride [Klor-Con 10] 20 meq PO DAILY #30 tab.er 11/24/19 [Rx] Menthol/Methyl Salicylate [Icy Hot] 85 gm TOP QID PRN 11/27/19 [History] oxyCODONE HCl/Acetaminophen [Percocet 7.5-325 mg Tablet] 0.5 tab PO ASDIRECTED PRN 11/27/19 [History] Forms: ED Department Discharge Referrals: Umberto Weeks MD [Primary Care Provider] - - Discharge Summary/Plan Comment DC Time >30 min.: Yes - General Info Date of Service: 11/28/19 Admission Dx/Problem (Free Text: Admission Diagnosis/Problem Admission Diagnosis/Problem Presyncope, afib with RVR Subjective Update: Symptoms resolved - Patient Data Vitals - Most Recent: Last Vital Signs Temp 36.4 C 11/28/19 07:32 Pulse 73 11/28/19 07:32 Resp 20 11/28/19 07:32 BP 133/69 11/28/19 08:55 Pulse Ox 94 L 11/28/19 07:32 Weight - Most Recent: 67.721 kg I&O - Last 24 hours: Intake & Output 11/27/19 11/28/19 11/28/19 22:59 06:59 14:59 Intake Total 200 300 Balance 200 300 Lab Results - Last 24 hrs: Laboratory Results - last 24 hr 11/27/19 11/27/19 11/27/19 Range/Units 10:34 10:34 10:34 WBC (5.0-10.0) 10^3/uL RBC (4.2-5.4) 10^6/uL Hgb (12.0-16.0) g/dL Hct (37.0-47.0) % MCV (80-100) fL MCH (27.0-34.0) pg MCHC (33.0-35.0) g/dL Plt Count (150-450) 10^3/uL Neut % (Auto) (42.2-75.2) % Lymph % (Auto) (20.5-50.1) % [place] % (Auto) (2-8) % Eos % (Auto) (1.0-3.0) % Baso % (Auto) (0.0-1.0) % Add Manual Diff Neutrophils % (Manual) (42-75) % Lymphocytes % (Manual) (20-50) % Monocytes % (Manual) (2-8) % Eosinophils % (Manual) (1-3) % Basophils % (Manual) PT 18.7 H (9.0-12.0) SEC INR 1.9 H (0.9-1.2) Sodium 132 L (135-145) mmol/L Potassium 3.6 (3.6-5.0) mmol/L Chloride 95 L (101-111) mmol/L Carbon Dioxide 26.0 (21.0-31.0) mmol/L Anion Gap 14.6 BUN 42 H (7-18) mg/dL Creatinine 1.0 (0.6-1.3) mg/dL Est Cr Clr Drug Dosing 34.99 mL/min Estimated GFR (MDRD) 52 BUN/Creatinine Ratio 42.00 Glucose 158 H (74-105) mg/dL POC Glucose (83-110) mg/dl Calcium 10.8 H (8.4-10.2) mg/dl Magnesium 1.5 L (1.8-2.5) mg/dL Total Bilirubin 0.8 (0.2-1.0) mg/dL AST 24 (10-42) IU/L ALT 19 (10-60) IU/L Alkaline Phosphatase 37 L (42-121) IU/L Troponin I 0.02 (0.00-0.02) ng/ml B-Natriuretic Peptide 526 H (0-100) pg/ml Total Protein 7.1 (6.7-8.2) g/dl Albumin 3.9 (3.2-5.5) g/dl Globulin 3.2 Albumin/Globulin Ratio 1.22 TSH, Ultra Sensitive 1.13 (0.45-5.33) uIu/mL Urine Color (YELLOW) Urine Appearance (CLEAR) Urine pH (5.0-9.0) Ur Specific [place] (1.005-1.030) Urine Protein (NEGATIVE) Urine Glucose (UA) (NEGATIVE) Urine Ketones (NEGATIVE) Urine Occult Blood (NEGATIVE) Urine Nitrite (NEGATIVE) Urine Bilirubin (NEGATIVE) Urine Urobilinogen (0.2-1.0) mg/dL Ur Leukocyte Esterase (NEGATIVE) Urine RBC /HPF Urine WBC (0-5/HPF) /HPF Ur Epithelial Cells (NOT SEEN) /HPF Urine Bacteria (0-FEW/HPF) /HPF Urine Mucus (NOT SEEN) /LPF 11/27/19 11/27/19 11/27/19 Range/Units 11:55 16:51 20:35 WBC (5.0-10.0) 10^3/uL RBC (4.2-5.4) 10^6/uL Hgb (12.0-16.0) g/dL Hct (37.0-47.0) % MCV (80-100) fL MCH (27.0-34.0) pg MCHC (33.0-35.0) g/dL Plt Count (150-450) 10^3/uL Neut % (Auto) (42.2-75.2) % Lymph % (Auto) (20.5-50.1) % [place] % (Auto) (2-8) % Eos % (Auto) (1.0-3.0) % Baso % (Auto) (0.0-1.0) % Add Manual Diff Neutrophils % (Manual) (42-75) % Lymphocytes % (Manual) (20-50) % Monocytes % (Manual) (2-8) % Eosinophils % (Manual) (1-3) % Basophils % (Manual) PT (9.0-12.0) SEC INR (0.9-1.2) Sodium (135-145) mmol/L Potassium (3.6-5.0) mmol/L Chloride (101-111) mmol/L Carbon Dioxide (21.0-31.0) mmol/L Anion Gap BUN (7-18) mg/dL Creatinine (0.6-1.3) mg/dL Est Cr Clr Drug Dosing mL/min Estimated GFR (MDRD) BUN/Creatinine Ratio Glucose (74-105) mg/dL POC Glucose 115 H 113 H (83-110) mg/dl Calcium (8.4-10.2) mg/dl Magnesium (1.8-2.5) mg/dL Total Bilirubin (0.2-1.0) mg/dL AST (10-42) IU/L ALT (10-60) IU/L Alkaline Phosphatase (42-121) IU/L Troponin I (0.00-0.02) ng/ml B-Natriuretic Peptide (0-100) pg/ml Total Protein (6.7-8.2) g/dl Albumin (3.2-5.5) g/dl Globulin Albumin/Globulin Ratio TSH, Ultra Sensitive (0.45-5.33) uIu/mL Urine Color Yellow (YELLOW) Urine Appearance Clear (CLEAR) Urine pH 7.5 (5.0-9.0) Ur Specific [place] 1.020 (1.005-1.030) Urine Protein Trace H (NEGATIVE) Urine Glucose (UA) Negative (NEGATIVE) Urine Ketones Negative (NEGATIVE) Urine Occult Blood Negative (NEGATIVE) Urine Nitrite Negative (NEGATIVE) Urine Bilirubin Negative (NEGATIVE) Urine Urobilinogen 0.2 (0.2-1.0) mg/dL Ur Leukocyte Esterase Negative (NEGATIVE) Urine RBC Not seen /HPF Urine WBC Not seen (0-5/HPF) /HPF Ur Epithelial Cells Rare (NOT SEEN) /HPF Urine Bacteria Not seen (0-FEW/HPF) /HPF Urine Mucus Not seen (NOT SEEN) /LPF 02/10/20 02/10/20 02/10/20 Range/Units 06:15 06:15 06:15 WBC 9.5 (5.0-10.0) 10^3/uL RBC 3.94 L (4.2-5.4) 10^6/uL Hgb 9.9 L (12.0-16.0) g/dL Hct 30.9 L (37.0-47.0) % MCV 78.4 L (80-100) fL MCH 25.1 L (27.0-34.0) pg MCHC 32.0 L (33.0-35.0) g/dL Plt Count 380 (150-450) 10^3/uL Neut % (Auto) 48.4 (42.2-75.2) % Lymph % (Auto) 21.3 (20.5-50.1) % [place] % (Auto) 7.9 (2-8) % Eos % (Auto) 21.0 H (1.0-3.0) % Baso % (Auto) 1.4 H (0.0-1.0) % Add Manual Diff Yes Neutrophils % (Manual) 46 (42-75) % Lymphocytes % (Manual) 25 (20-50) % Monocytes % (Manual) 5 (2-8) % Eosinophils % (Manual) 23 H (1-3) % Basophils % (Manual) 1 PT 14.0 H (9.0-12.0) SEC INR 1.4 H (0.9-1.2) Sodium 136 (135-145) mmol/L Potassium 3.6 (3.6-5.0) mmol/L Chloride 95 L (101-111) mmol/L Carbon Dioxide 28.0 (21.0-31.0) mmol/L Anion Gap 16.6 BUN 44 H (7-18) mg/dL Creatinine 1.2 (0.6-1.3) mg/dL Est Cr Clr Drug Dosing 33.87 mL/min Estimated GFR (MDRD) 42 BUN/Creatinine Ratio Glucose 149 H (74-105) mg/dL POC Glucose (83-110) mg/dl Calcium 10.6 H (8.4-10.2) mg/dl Magnesium (1.8-2.5) mg/dL Total Bilirubin (0.2-1.0) mg/dL AST (10-42) IU/L ALT (10-60) IU/L Alkaline Phosphatase (42-121) IU/L Troponin I (0.00-0.02) ng/ml B-Natriuretic Peptide (0-100) pg/ml Total Protein (6.7-8.2) g/dl Albumin (3.2-5.5) g/dl Globulin Albumin/Globulin Ratio TSH, Ultra Sensitive (0.45-5.33) uIu/mL Urine Color (YELLOW) Urine Appearance (CLEAR) Urine pH (5.0-9.0) Ur Specific [place] (1.005-1.030) Urine Protein (NEGATIVE) Urine Glucose (UA) (NEGATIVE) Urine Ketones (NEGATIVE) Urine Occult Blood (NEGATIVE) Urine Nitrite (NEGATIVE) Urine Bilirubin (NEGATIVE) Urine Urobilinogen (0.2-1.0) mg/dL Ur Leukocyte Esterase (NEGATIVE) Urine RBC /HPF Urine WBC (0-5/HPF) /HPF Ur Epithelial Cells (NOT SEEN) /HPF Urine Bacteria (0-FEW/HPF) /HPF Urine Mucus (NOT SEEN) /LPF 11/28/19 Range/Units 07:55 WBC (5.0-10.0) 10^3/uL RBC (4.2-5.4) 10^6/uL Hgb (12.0-16.0) g/dL Hct (37.0-47.0) % MCV (80-100) fL MCH (27.0-34.0) pg MCHC (33.0-35.0) g/dL Plt Count (150-450) 10^3/uL Neut % (Auto) (42.2-75.2) % Lymph % (Auto) (20.5-50.1) % [place] % (Auto) (2-8) % Eos % (Auto) (1.0-3.0) % Baso % (Auto) (0.0-1.0) % Add Manual Diff Neutrophils % (Manual) (42-75) % Lymphocytes % (Manual) (20-50) % Monocytes % (Manual) (2-8) % Eosinophils % (Manual) (1-3) % Basophils % (Manual) PT (9.0-12.0) SEC INR (0.9-1.2) Sodium (135-145) mmol/L Potassium (3.6-5.0) mmol/L Chloride (101-111) mmol/L Carbon Dioxide (21.0-31.0) mmol/L Anion Gap BUN (7-18) mg/dL Creatinine (0.6-1.3) mg/dL Est Cr Clr Drug Dosing mL/min Estimated GFR (MDRD) BUN/Creatinine Ratio Glucose (74-105) mg/dL POC Glucose 146 H (83-110) mg/dl Calcium (8.4-10.2) mg/dl Magnesium (1.8-2.5) mg/dL Total Bilirubin (0.2-1.0) mg/dL AST (10-42) IU/L ALT (10-60) IU/L Alkaline Phosphatase (42-121) IU/L Troponin I (0.00-0.02) ng/ml B-Natriuretic Peptide (0-100) pg/ml Total Protein (6.7-8.2) g/dl Albumin (3.2-5.5) g/dl Globulin Albumin/Globulin Ratio TSH, Ultra Sensitive (0.45-5.33) uIu/mL Urine Color (YELLOW) Urine Appearance (CLEAR) Urine pH (5.0-9.0) Ur Specific [place] (1.005-1.030) Urine Protein (NEGATIVE) Urine Glucose (UA) (NEGATIVE) Urine Ketones (NEGATIVE) Urine Occult Blood (NEGATIVE) Urine Nitrite (NEGATIVE) Urine Bilirubin (NEGATIVE) Urine Urobilinogen (0.2-1.0) mg/dL Ur Leukocyte Esterase (NEGATIVE) Urine RBC /HPF Urine WBC (0-5/HPF) /HPF Ur Epithelial Cells (NOT SEEN) /HPF Urine Bacteria (0-FEW/HPF) /HPF Urine Mucus (NOT SEEN) /LPF Med Orders - Current: Current Medications Acetaminophen (Tylenol) 650 mg PO Q4H PRN PRN Reason: Pain (Mild 1-3)/fever Last Admin: 11/27/19 16:43 Dose: 650 mg Albuterol (Proventil Hfa) 0 gm INH Q4H PRN PRN Reason: Wheezing Albuterol/Ipratropium (Duoneb 3.0-0.5 Mg/3 Ml) 3 ml INH Q4H PRN PRN Reason: Wheezing Aspirin (Halfprin) 81 mg PO DAILY DREA Last Admin: 11/28/19 08:59 Dose: 81 mg Clonidine HCl (Catapres) 0.[address] [facility] Last Admin: 11/28/19 08:55 Dose: 0.2 mg Ferrous Sulfate (Ferrous Sulfate) 325 mg PO DAILY@1800 [facility] Last Admin: 11/27/19 17:44 Dose: 325 mg Folic Acid (Folic Acid) [address] [facility] Last Admin: 11/28/19 08:58 Dose: 1 mg Furosemide (Lasix) [address] [facility] Last Admin: 11/28/19 08:57 Dose: 40 mg Hydrochlorothiazide (Hydrochlorothiazide) [address] [facility] Last Admin: 11/28/19 08:58 Dose: 25 mg Methyl Salicylate (Icy Hot Cream) 0 gm TOP QID PRN PRN Reason: Pain (mild 1-3) Last Admin: 11/28/19 09:00 Dose: 1 applic Fenofibrate 160 Mg (*Own Med) [address] [facility] Last Admin: 11/27/19 20:13 Dose: 160 mg Oxycodone Hcl/Acetamin 7.5/325mg Own Med C-Ii Substance 0.5 tab PO Q8H PRN PRN Reason: Pain Ondansetron HCl (Zofran Odt) 4 mg PO Q4H PRN PRN Reason: nausea, able to take PO Last Admin: 11/27/19 20:11 Dose: 4 mg Pantoprazole Sodium (Protonix) [address] [facility] Last Admin: 11/28/19 05:42 Dose: 40 mg Cholecalciferol 50mcg Tabs *Own Med [address] [facility] Last Admin: 11/28/19 08:59 Dose: 1 each Amlodipine 10mg Tab (Own Med) [address] [facility] Last Admin: 11/27/19 20:14 Dose: 1 each Calcium Citrate + Vit D 400mg/12.5mcg Own Med [address] [facility] Last Admin: 11/27/19 20:15 Dose: 1 each Metformin 1000mg Tab (Own Med) [address] [facility] Last Admin: 11/28/19 08:56 Dose: 1 each Metoprolol Suc Er 100mg Tab Own Med [address] [facility] Last Admin: 11/28/19 08:57 Dose: 1 each Warfarin 2.5mg Tabs (Own Med) 0 each PO ONETIME ONE Stop: 11/28/19 14:01 Potassium Chloride (Klor-Con 10) [address] [facility] Last Admin: 11/28/19 08:59 Dose: 20 meq Sodium Chloride (Saline Flush) 10 ml FLUSH ASDIRECTED PRN PRN Reason: Keep Vein Open Last Admin: 11/27/19 10:33 Dose: 10 ml Warfarin Sodium (Pharmacy To Dose - Warfarin) 1 dose .XX ASDIRECTED DREA Discontinued Medications Albuterol/Ipratropium (Duoneb 3.0-0.5 Mg/3 Ml) 3 ml INH Q4H PRN PRN Reason: Wheezing Amlodipine Besylate (Norvasc) [address] [facility] Aspirin (Halfprin) [address] [facility] Calcium Carbonate (Calcium Carbonate/Vitamin D 1250 Mg-200 Unit) [address] [facility] Furosemide (Lasix) 40 mg IVPUSH NOW ONE Stop: 11/27/19 11:05 Last Admin: 11/27/19 11:11 Dose: 40 mg Magnesium Sulfate 2 gm/ Premix 50 mls @ 25 mls/hr IV ONETIME ONE Stop: 11/27/19 13:02 Last Infusion: 11/27/19 14:31 Dose: Infused Metformin HCl (Glucophage) 1,[address] [facility] Metoprolol Succinate (Toprol Xl) 100 mg PO ONETIME ONE Stop: 11/27/19 10:40 Last Admin: 11/27/19 10:43 Dose: 100 mg Metoprolol Succinate (Toprol Xl) [address] [facility] Last Admin: 11/27/19 14:32 Dose: Not Given Metoprolol Tartrate (Lopressor) 5 mg IVPUSH ONETIME ONE Stop: 11/27/19 10:28 Last Admin: 11/27/19 10:32 Dose: 5 mg Non-Formulary Medication (Ciclopirox/Ure/Camph/Menth/Euc [Ciclopirox 8% Treatment Kit]) 34.[address] [facility] Oxycodone/Acetaminophen 7.5- 325 Mg Own Med C-Ii 0.5 tab PO ASDIRECTED PRN PRN Reason: Pain Pantoprazole Sodium (Protonix) 40 mg PO DAILY PRN PRN Reason: reflux Pantoprazole Sodium (Protonix) 40 mg PO DAILY PRN PRN Reason: reflux Warfarin 2.5mg Tabs (Own Med) 0 each PO ONETIME ONE Stop: 11/27/19 15:16 Last Admin: 11/27/19 15:44 Dose: 2.5 each - Exam General: Reports: Alert, Oriented Lungs: Reports: Clear to Auscultation, Normal Respiratory Effort Cardiovascular: Reports: Irregular Rhythm GI/Abdominal Exam: Normal Bowel Sounds, Soft, Non-Tender Extremities: Normal Inspection, No Pedal Edema Skin: Reports: Warm, Dry, Intact Wound/Incisions: Reports: Healing Well Neurological: Reports: No New Focal Deficit Psy/Mental Status: Reports: Alert, Normal Affect, Normal Mood
[2019-11-28 11:18] VITALS: BP 111/47; PULSE 61
[2019-11-28] MEDS ORDERED: WARFARIN 2.5 MG PO ONE (14:00)
== END 2019-11-28 14:23 | disposition home health service (06) ==
LOC: DL.ED 10:08 → UNDOADMOB 11:36 → DL.MS 11:36
PROVIDERS: ADMIT Internal Medicine; ATTEND Internal Medicine
DX: I48.91 Unspecified atrial fibrillation (principal); I49.5 Sick sinus syndrome; I11.0 Hypertensive heart disease with heart failure; I50.9 Heart failure, unspecified; E11.9 Type 2 diabetes mellitus without complications; E78.00 Pure hypercholesterolemia, unspecified; J44.9 Chronic obstructive pulmonary disease, unspecified; K21.9 Gastro-esophageal reflux disease without esophagitis; M19.011 Primary osteoarthritis, right shoulder; Z95.0 Presence of cardiac pacemaker; Z88.0 Allergy status to penicillin; Z88.8 Allergy status to other drugs, medicaments and biological substances; Z88.5 Allergy status to narcotic agent; Z88.1 Allergy status to other antibiotic agents; Z79.84 Long term (current) use of oral hypoglycemic drugs; Z79.82 Long term (current) use of aspirin; Z79.01 Long term (current) use of anticoagulants; Z79.899 Other long term (current) drug therapy
CPT/HCPCS: 36415; 71045; 80048; 80053; 81001; 82962; 83735; 83880; 84443; 84484; 85025; 85610; 93005; A9270; J1940; J3475; J3490; 93010; 96365; 96366; 96374; 96375; 99283; 99285-25; G0378

== ENCOUNTER 2019-12-27 09:10 | Emergency (ER) | payer MEDICARE, BC ==
--- NOTE | 2019-12-27 09:28 | EDM.PDOC ---
ED HPI GENERAL MEDICAL PROBLEM - General Chief Complaint: Genitourinary Problem Stated Complaint: POSSIBLE UTI Time Seen by Provider: 12/27/19 09:28 Source of Information: Reports: Patient, Family (daughter), Old Records, RN, RN Notes Reviewed History Limitations: Reports: No Limitations - History of Present Illness INITIAL COMMENTS - FREE TEXT/NARRATIVE: Pt presents to ER from home by POV with c/o difficulty passing urine. Pt thinks she has a UTI. Pt states she isn't sure when symptoms started. She denies flank pain, fever, chills, or N/V. She admits to constipation which she attributes to her iron supplement. Onset: Gradual Duration: Day(s): (2-3) Location: Reports: Abdomen Quality: Reports: Pressure Severity: Moderate Improves with: Reports: None Worsens with: Reports: None Associated Symptoms: Reports: No Other Symptoms - Related Data Allergies Allergy/AdvReac Type Severity Reaction Status Date / Time amoxicillin Allergy Hives Verified 12/27/19 09:24 ezetimibe Allergy Cannot Verified 12/27/19 09:24 Remember morphine Allergy Confusion Verified 12/27/19 09:24 moxifloxacin Allergy Cannot Verified 12/27/19 09:24 Remember naproxen [From Aleve] Allergy Cannot Verified 12/27/19 09:24 Remember Nffyphm-Pno-Vca Reductase Allergy Muscle Verified 12/27/19 09:24 Inhibitor Aches sulindac Allergy Cannot Verified 12/27/19 09:24 Remember Tetracyclines Allergy Cannot Verified 12/27/19 09:24 Remember Home Meds: Home Meds Fenofibrate 160 mg PO BEDTIME 04/20/15 [History] Metoprolol Succinate [Toprol XL] 100 mg PO DAILY 04/20/15 [History] metFORMIN [Glucophage] 1,000 mg PO BIDMEALS 04/20/15 [History] Pantoprazole [ProTONIX] 40 mg PO DAILY PRN 03/24/16 [History] cloNIDine [Catapres] 0.2 mg PO BID 02/10/17 [History] Cholecalciferol (Vitamin D3) [Vitamin D3] 2,000 unit PO DAILY 07/25/18 [History] Calcium Citrate/Vitamin D3 [Citracal + D Maximum Caplet] 1 each PO BEDTIME 03/02 [History] Albuterol [Proventil HFA] 2 puff INH Q4H PRN 08/23/19 [History] Albuterol/Ipratropium [DuoNeb 3.0-0.5 MG/3 ML] 3 ml INH Q4H PRN 08/23/19 [ History] Aspirin [Adult Low Dose Aspirin EC] 81 mg PO DAILY 08/23/19 [History] Ciclopirox/Ure/Camph/Menth/Euc [Ciclopirox 8% Treatment Kit] 34.6 ml TP DAILY [History] Ferrous Sulfate 325 mg PO .SUPPER 08/23/19 [History] Folic Acid 1 mg PO DAILY 08/23/19 [History] Magnesium Oxide [Magnesium] 100 mg PO DAILY 08/23/19 [History] [place]-3 Acid Ethyl Esters [Lovaza] 2 gm PO BID 08/23/19 [History] Propylene Glycol/Peg 400 [Systane 0.3-0.4% Eye Drops] 1 drop EYEBOTH BID [History] amLODIPine [Norvasc] 10 mg PO BEDTIME 08/23/19 [History] hydroCHLOROthiazide [Hydrochlorothiazide] 25 mg PO DAILY 08/23/19 [History] Warfarin [Coumadin] 2.5 mg PO DAILY 11/13/19 [History] Furosemide [Lasix] 40 mg PO DAILY #30 tablet 11/24/19 [Rx] Potassium Chloride [Klor-Con 10] 20 meq PO DAILY #30 tab.er 11/24/19 [Rx] Menthol/Methyl Salicylate [Icy Hot] 85 gm TOP QID PRN 11/27/19 [History] oxyCODONE HCl/Acetaminophen [Percocet 7.5-325 mg Tablet] 0.5 tab PO ASDIRECTED PRN 11/27/19 [History] Past Medical History - Past Health History Medical/Surgical History: Denies Medical/Surgical History HEENT History: Reports: Impaired Vision Other HEENT History: wears glasses, is legally blind Cardiovascular History: Reports: Afib, Blood Clots/VTE/DVT, Heart Failure, High Cholesterol, Hypertension, Pacemaker Other Cardiovascular History: pauses in heart beat Respiratory History: Reports: COPD, PE, SOB, Other (See Below) Other Respiratory History: recent intubation Gastrointestinal History: Reports: GERD Other Gastrointestinal History: prolapsed rectum Genitourinary History: Reports: Urinary Incontinence Other Genitourinary History: wears protection 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: Musculoskeletal History: Reports: Back Pain, Chronic, Osteoarthritis, Other ( See Below) Other Musculoskeletal History: degenerative disc disease Neurological History: Reports: CVA, Headaches, Chronic, Other (See Below) Other Neuro History: cva in 2010 Psychiatric History: Reports: None Endocrine/Metabolic History: Reports: Diabetes, Type II Hematologic History: Reports: None Immunologic History: Reports: None Oncologic (Cancer) History: Reports: None Dermatologic History: Reports: None - Infectious Disease History Infectious Disease History: Reports: Chicken Pox, Measles - Past Surgical History Head Surgeries/Procedures: Reports: None HEENT Surgical History: Reports: None Cardiovascular Surgical History: Reports: Pacer Respiratory Surgical History: Reports: None GI Surgical History: Reports: Other (See Below) Other GI Surgeries/Procedures: Bowel resection Female Surgical History: Reports: Other (See Below) Other Female Surgeries/Procedures: Bladder surgery Musculoskeletal Surgical History: Reports: None Social & Family History - Family History Family Medical History: Noncontributory - Caffeine Use Caffeine Use: Reports: Coffee - Living Situation & Occupation Living situation: Reports: , Alone Occupation: Retired ED ROS GENERAL - Review of Systems Review Of Systems: Comprehensive ROS is negative, except as noted in HPI. ED EXAM, RENAL/ - Physical Exam Exam: See Below Exam Limited By: No Limitations General Appearance: Alert, WD/WN, No Apparent Distress Throat/Mouth: Normal Inspection, Normal Voice, No Airway Compromise Head: Atraumatic, Normocephalic Respiratory/Chest: No Respiratory Distress, Lungs Clear, No Accessory Muscle Use , Chest Non-Tender, Decreased Breath Sounds Cardiovascular: No Edema, Irregularly Irregular GI/Abdominal: Soft, Non-Tender, No Distention, Abnormal Bowel Sounds (Slightly hyperactive bowel sounds.). No: Guarding, Rigid, Rebound (Female) Exam: Deferred Rectal (Female) Exam: Deferred Back Exam: Normal Inspection. No: CVA Tenderness (L), CVA Tenderness (R) Extremities: Normal Inspection Neurological: Alert, Oriented, No Motor/Sensory Deficits Psychiatric: Normal Affect, Normal Mood Skin Exam: Warm, Dry, Intact, Normal Color, No Rash Course - Vital Signs Last Recorded V/S: Last Vital Signs Temp 98.3 F 12/27/19 09:15 Pulse 69 12/27/19 09:15 Resp 18 12/27/19 09:15 BP 142/68 H 12/27/19 09:15 Pulse Ox 93 L 12/27/19 09:15 - Orders/Labs/Meds Orders: Active Orders 24 hr Category Date Time Status Abdomen 2V AP Flat Upright [CR] Urgent Exams 12/27/19 09:32 Taken CULTURE URINE [RM] Stat Lab 12/27/19 10:20 Received Labs: Laboratory Tests 12/27/19 12/27/19 12/27/19 Range/Units 09:42 09:42 09:42 WBC 6.6 (5.0-10.0) 10^3/uL RBC 4.16 L (4.2-5.4) 10^6/uL Hgb 10.3 L (12.0-16.0) g/dL Hct 31.8 L (37.0-47.0) % MCV 76.4 L (80-100) fL MCH 24.8 L (27.0-34.0) pg MCHC 32.4 L (33.0-35.0) g/dL Plt Count 304 D (150-450) 10^3/uL Neut % (Auto) 55.9 (42.2-75.2) % Lymph % (Auto) 20.5 (20.5-50.1) % [place] % (Auto) 9.4 H (2-8) % Eos % (Auto) 12.7 H (1.0-3.0) % Baso % (Auto) 1.5 H (0.0-1.0) % PT 24.8 H D (9.0-12.0) SEC INR 2.5 H (0.9-1.2) Sodium 137 (136-145) mmol/L Potassium 3.7 (3.5-5.1) mmol/L Chloride 96 L (101-111) mmol/L Carbon Dioxide 31 (21-32) mmol/L Anion Gap 13.7 H (7-13) mEq/L BUN 40 H (7-18) mg/dL Creatinine 1.19 H (0.55-1.02) mg/dL Est Cr Clr Drug Dosing 29.40 mL/min Estimated GFR (MDRD) 43 Glucose 206 H (74-99) mg/dL Calcium 9.3 (8.5-10.1) mg/dL Urine Color (YELLOW) Urine Appearance (CLEAR) Urine pH (5.0-9.0) Ur Specific [place] (1.005-1.030) Urine Protein (NEGATIVE) Urine Glucose (UA) (NEGATIVE) Urine Ketones (NEGATIVE) Urine Occult Blood (NEGATIVE) Urine Nitrite (NEGATIVE) Urine Bilirubin (NEGATIVE) Urine Urobilinogen (0.2-1.0) mg/dL Ur Leukocyte Esterase (NEGATIVE) Urine RBC /HPF Urine WBC (0-5/HPF) /HPF Ur Epithelial Cells (NOT SEEN) /HPF Urine Bacteria (0-FEW/HPF) /HPF Urine Mucus (NOT SEEN) /LPF 12/27/19 Range/Units 10:20 WBC (5.0-10.0) 10^3/uL RBC (4.2-5.4) 10^6/uL Hgb (12.0-16.0) g/dL Hct (37.0-47.0) % MCV (80-100) fL MCH (27.0-34.0) pg MCHC (33.0-35.0) g/dL Plt Count (150-450) 10^3/uL Neut % (Auto) (42.2-75.2) % Lymph % (Auto) (20.5-50.1) % [place] % (Auto) (2-8) % Eos % (Auto) (1.0-3.0) % Baso % (Auto) (0.0-1.0) % PT (9.0-12.0) SEC INR (0.9-1.2) Sodium (136-145) mmol/L Potassium (3.5-5.1) mmol/L Chloride (101-111) mmol/L Carbon Dioxide (21-32) mmol/L Anion Gap (7-13) mEq/L BUN (7-18) mg/dL Creatinine (0.55-1.02) mg/dL Est Cr Clr Drug Dosing mL/min Estimated GFR (MDRD) Glucose (74-99) mg/dL Calcium (8.5-10.1) mg/dL Urine Color Yellow (YELLOW) Urine Appearance Clear (CLEAR) Urine pH 8.0 (5.0-9.0) Ur Specific [place] 1.015 (1.005-1.030) Urine Protein Trace H (NEGATIVE) Urine Glucose (UA) Negative (NEGATIVE) Urine Ketones Negative (NEGATIVE) Urine Occult Blood Trace-intact H (NEGATIVE) Urine Nitrite Negative (NEGATIVE) Urine Bilirubin Negative (NEGATIVE) Urine Urobilinogen 0.2 (0.2-1.0) mg/dL Ur Leukocyte Esterase Trace H (NEGATIVE) Urine RBC 0-5 /HPF Urine WBC 0-5 (0-5/HPF) /HPF Ur Epithelial Cells Rare (NOT SEEN) /HPF Urine Bacteria Not seen (0-FEW/HPF) /HPF Urine Mucus Not seen (NOT SEEN) /LPF - Radiology Interpretation Free Text/Narrative:: [facility] [place] [facility] Final Radiology Report Call: [phone] assistance Online chat: [email or web address] Name: SANGEETHA BAZZI Age: 89Years F Date: 12/27/2019 SSN: -- : [id number] Study: XR ABDOMEN COMPLETE W DECUBITUS &/OR ERECT VIEWS Requesting Physician: DEBBIE JARRETT Images: 3 Addl Studies: Provided Clinical History: Contrast: Contrast Medium: Contrast Amount: Contrast Method: CONFIDENTIALITY STATEMENT This report is intended only for use by the referring physician, and only in accordance with law. If you received this in error, call [phone]. Page 1 of 1 PROCEDURE INFORMATION: Exam: XR Abdomen, 3 or More Views Exam date and time: 12/27/2019 10:22 AM Age: 89 years old Clinical indication: Constipation; Urinary retention TECHNIQUE: Imaging protocol: XR of the abdomen. Views: 3 or more views. COMPARISON: No relevant prior studies available. FINDINGS: Gastrointestinal tract: No dilated gas-filled loops of bowel. The amount of stool within the colon is subjectively within the range of normal. Intraperitoneal space: No pneumoperitoneum. Bones/joints: There is a curvature of the lumbar spine convex to the right associated with multilevel disc degeneration and facet arthropathy. There is mild degeneration of the sacroiliac joints and the symphysis pubis. IMPRESSION: No bowel obstruction or ileus. Thank you for allowing us to participate in the care of your patient. Dictated and Authenticated by: Landen Barnett MD 12/27/2019 11:06 AM Central Time ([place] & [place]) Departure - Departure Time of Disposition: 11:13 Disposition: Home, Self-Care 01 Condition: Good Clinical Impression: Acute urinary retention - Discharge Information *PRESCRIPTION DRUG MONITORING PROGRAM REVIEWED*: Not Applicable *COPY OF PRESCRIPTION DRUG MONITORING REPORT IN PATIENT ERWIN: Not Applicable Instructions: Acute Urinary Retention, Female, [id number] Forms: ED Department Discharge Additional Instructions: Try to pass some urine every 4 hours today. Write down how often you urinate, and where it was a small, average, or large amount. Follow up in clinic in 2 to 3 days for recheck. Return to ER if you feel you are not able to empty your bladder. Sepsis Event Note - Focused Exam Vital Signs: Vital Signs Temp Pulse Resp BP Pulse Ox 12/27/19 09:15 98.3 F 69 18 142/68 H 93 L Date Exam was Performed: 12/27/19 Time Exam was Performed: 11:12 - My Orders Last 24 Hours: My Active Orders 12/27/19 09:32 Abdomen 2V AP Flat Upright [CR] Urgent 12/27/19 10:20 CULTURE URINE [RM] Stat - Assessment/Plan Last 24 Hours: My Active Orders 12/27/19 09:32 Abdomen 2V AP Flat Upright [CR] Urgent 12/27/19 10:20 CULTURE URINE [RM] Stat
[2019-12-27 09:44] VITALS: BP 142/68; PULSE 69
[2019-12-27 10:09] LABS: ANION GAP 13.7 mEq/L (7-13)
== END 2019-12-27 11:25 | disposition home or self-care (01) ==
LOC: DL.ED 09:10
DX: R33.9 Retention of urine, unspecified (principal); E11.9 Type 2 diabetes mellitus without complications; E78.00 Pure hypercholesterolemia, unspecified; I11.0 Hypertensive heart disease with heart failure; I50.9 Heart failure, unspecified; I48.91 Unspecified atrial fibrillation; Z86.718 Personal history of other venous thrombosis and embolism; J44.9 Chronic obstructive pulmonary disease, unspecified; Z86.711 Personal history of pulmonary embolism; K21.9 Gastro-esophageal reflux disease without esophagitis; M19.90 Unspecified osteoarthritis, unspecified site; Z86.73 Personal history of transient ischemic attack (TIA), and cerebral infarction without residual deficits; Z87.448 Personal history of other diseases of urinary system; Z79.899 Other long term (current) drug therapy; Z79.82 Long term (current) use of aspirin; Z79.01 Long term (current) use of anticoagulants; Z79.84 Long term (current) use of oral hypoglycemic drugs; Z88.5 Allergy status to narcotic agent; Z88.1 Allergy status to other antibiotic agents; Z88.8 Allergy status to other drugs, medicaments and biological substances
CPT/HCPCS: 36415; 74019; 80048; 81001; 85025; 85610; 87086; 99283-25

== ENCOUNTER 2020-01-28 21:01 | Emergency (ER) | payer MEDICARE, BC ==
[2020-01-28 21:15] VITALS: BP 183/82; PULSE 99
[2020-01-28] MEDS ORDERED: Albuterol/Ipratropium 3.0-0.5 MG/3 ML Neb Soln NEB ONE (21:17)
--- NOTE | 2020-01-28 21:17 | EDM.PDOC ---
ED HPI GENERAL MEDICAL PROBLEM - General Chief Complaint: Respiratory Problem Stated Complaint: UNKNOWN-AMBULANCE Time Seen by Provider: 01/28/20 21:14 Source of Information: Reports: Patient History Limitations: Reports: No Limitations - History of Present Illness INITIAL COMMENTS - FREE TEXT/NARRATIVE: states started SOB tonight, has COPD used to use O2 and neb but didn't need it anymore. didn't try neb tonight. - Related Data Allergies Allergy/AdvReac Type Severity Reaction Status Date / Time amoxicillin Allergy Hives Verified 01/28/20 21:11 ezetimibe Allergy Cannot Verified 01/28/20 21:11 Remember morphine Allergy Confusion Verified 01/28/20 21:11 moxifloxacin Allergy Cannot Verified 01/28/20 21:11 Remember naproxen [From Aleve] Allergy Cannot Verified 01/28/20 21:11 Remember Rlozvrn-Pgr-Ywh Reductase Allergy Muscle Verified 01/28/20 21:11 Inhibitor Aches sulindac Allergy Cannot Verified 01/28/20 21:11 Remember Tetracyclines Allergy Cannot Verified 01/28/20 21:11 Remember Home Meds: Home Meds Fenofibrate 160 mg PO BEDTIME 04/20/15 [History] Metoprolol Succinate [Toprol XL] 100 mg PO DAILY 04/20/15 [History] metFORMIN [Glucophage] 1,000 mg PO BIDMEALS 04/20/15 [History] Pantoprazole [ProTONIX] 40 mg PO DAILY PRN 03/24/16 [History] cloNIDine [Catapres] 0.2 mg PO BID 02/10/17 [History] Cholecalciferol (Vitamin D3) [Vitamin D3] 2,000 unit PO DAILY 07/25/18 [History] Calcium Citrate/Vitamin D3 [Citracal + D Maximum Caplet] 1 each PO BEDTIME 03/02 [History] Albuterol [Proventil HFA] 2 puff INH Q4H PRN 08/23/19 [History] Albuterol/Ipratropium [DuoNeb 3.0-0.5 MG/3 ML] 3 ml INH Q4H PRN 08/23/19 [ History] Aspirin [Adult Low Dose Aspirin EC] 81 mg PO DAILY 08/23/19 [History] Ciclopirox/Ure/Camph/Menth/Euc [Ciclopirox 8% Treatment Kit] 34.6 ml TP DAILY [History] Ferrous Sulfate 325 mg PO .SUPPER 08/23/19 [History] Folic Acid 1 mg PO DAILY 08/23/19 [History] Magnesium Oxide [Magnesium] 100 mg PO DAILY 08/23/19 [History] [place]-3 Acid Ethyl Esters [Lovaza] 2 gm PO BID 08/23/19 [History] Propylene Glycol/Peg 400 [Systane 0.3-0.4% Eye Drops] 1 drop EYEBOTH BID [History] amLODIPine [Norvasc] 10 mg PO BEDTIME 08/23/19 [History] hydroCHLOROthiazide [Hydrochlorothiazide] 25 mg PO DAILY 08/23/19 [History] Warfarin [Coumadin] 2.5 mg PO DAILY 11/13/19 [History] Furosemide [Lasix] 40 mg PO DAILY #30 tablet 11/24/19 [Rx] Potassium Chloride [Klor-Con 10] 20 meq PO DAILY #30 tab.er 11/24/19 [Rx] Menthol/Methyl Salicylate [Icy Hot] 85 gm TOP QID PRN 11/27/19 [History] oxyCODONE HCl/Acetaminophen [Percocet 7.5-325 mg Tablet] 0.5 tab PO ASDIRECTED PRN 11/27/19 [History] Past Medical History - Past Health History Medical/Surgical History: Denies Medical/Surgical History HEENT History: Reports: Impaired Vision Other HEENT History: wears glasses, is legally blind Cardiovascular History: Reports: Afib, Blood Clots/VTE/DVT, Heart Failure, High Cholesterol, Hypertension, Pacemaker Other Cardiovascular History: pauses in heart beat Respiratory History: Reports: COPD, PE, SOB, Other (See Below) Other Respiratory History: recent intubation Gastrointestinal History: Reports: GERD Other Gastrointestinal History: prolapsed rectum Genitourinary History: Reports: Urinary Incontinence Other Genitourinary History: 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: Musculoskeletal History: Reports: Back Pain, Chronic, Osteoarthritis, Other ( See Below) Other Musculoskeletal History: degenerative disc disease Neurological History: Reports: CVA, Headaches, Chronic, Other (See Below) Other Neuro History: cva in 2010 Psychiatric History: Reports: None Endocrine/Metabolic History: Reports: Diabetes, Type II Hematologic History: Reports: None Immunologic History: Reports: None Oncologic (Cancer) History: Reports: None Dermatologic History: Reports: None - Infectious Disease History Infectious Disease History: Reports: Chicken Pox, Measles - Past Surgical History Head Surgeries/Procedures: Reports: None HEENT Surgical History: Reports: None Cardiovascular Surgical History: Reports: Pacer Respiratory Surgical History: Reports: None GI Surgical History: Reports: Other (See Below) Other GI Surgeries/Procedures: Bowel resection Female Surgical History: Reports: Other (See Below) Other Female Surgeries/Procedures: Bladder surgery Musculoskeletal Surgical History: Reports: None Social & Family History - Family History Family Medical History: Noncontributory - Caffeine Use Caffeine Use: Reports: Coffee - Living Situation & Occupation Living situation: Reports: , Alone Occupation: Retired ED ROS GENERAL - Review of Systems Review Of Systems: Comprehensive ROS is negative, except as noted in HPI. ED EXAM, GENERAL - Physical Exam Exam: See Below Exam Limited By: No Limitations General Appearance: Alert, WD/WN, Mild Distress, Other (discomfort) Ears: Hearing Grossly Normal Throat/Mouth: Normal Voice, No Airway Compromise Head: Atraumatic Neck: Non-Tender, Full Range of Motion Respiratory/Chest: Rhonchi, Wheezing Cardiovascular: Regular Rate, Rhythm GI/Abdominal: Soft, Non-Tender Extremities: Pedal Edema, Other (2+ bilateral) Neurological: Alert, Oriented, Normal Cognition, No Motor/Sensory Deficits Psychiatric: Flat Affect Skin Exam: Warm, Dry, Normal Color Lymphatic: No Adenopathy Course - Vital Signs Last Recorded V/S: Last Vital Signs Temp 36.4 C 01/28/20 21:13 Pulse 99 01/28/20 21:13 Resp 26 H 01/28/20 21:13 BP 183/82 H 01/28/20 21:13 Pulse Ox 90 L 01/28/20 21:13 - Orders/Labs/Meds Orders: Active Orders 24 hr Category Date Time Status EKG Documentation Completion [RC] STAT Care 01/28/20 21:02 Active RT Aerosol Therapy [RC] ASDIRECTED Care 01/28/20 21:17 Active Chest 1V Frontal [CR] Urgent Exams 01/28/20 21:02 Taken CULTURE URINE [RM] Stat Lab 01/28/20 21:25 Received Labs: Laboratory Tests 01/28/20 01/28/20 01/28/20 Range/Units 21:12 21:12 21:12 WBC 14.1 H (5.0-10.0) 10^3/uL RBC 4.81 (4.2-5.4) 10^6/uL Hgb 11.4 L (12.0-16.0) g/dL Hct 35.5 L (37.0-47.0) % MCV 73.8 L (80-100) fL MCH 23.7 L (27.0-34.0) pg MCHC 32.1 L (33.0-35.0) g/dL Plt Count 296 (150-450) 10^3/uL Neut % (Auto) 77.5 H (42.2-75.2) % Lymph % (Auto) 10.4 L (20.5-50.1) % [place] % (Auto) 5.7 (2-8) % Eos % (Auto) 5.9 H (1.0-3.0) % Baso % (Auto) 0.5 (0.0-1.0) % PT (9.0-12.0) SEC INR (0.9-1.2) Sodium 136 (136-145) mmol/L Potassium 3.6 (3.5-5.1) mmol/L Chloride 95 L (98-107) mmol/L Carbon Dioxide 32 (21-32) mmol/L Anion Gap 12.6 (7-13) mEq/L BUN 42 H (7-18) mg/dL Creatinine 1.19 H (0.55-1.02) mg/dL Est Cr Clr Drug Dosing 27.03 mL/min Estimated GFR (MDRD) 43 BUN/Creatinine Ratio 35.3 (No establ ref range) Glucose 174 H (74-99) mg/dL Lactic Acid 1.5 (0.4-2.0) mmol/L Calcium 9.8 (8.5-10.1) mg/dL Total Bilirubin 0.3 (0.2-1.0) mg/dL AST 33 (15-37) U/L ALT 31 (14-59) U/L Alkaline Phosphatase 46 (46-116) U/L Troponin I < 0.017 (0.000-0.056) ng/mL B-Natriuretic Peptide 363 H (0-100) pg/ml Total Protein 7.8 (6.4-8.2) g/dL Albumin 3.9 (3.4-5.0) g/dL Globulin 3.9 Albumin/Globulin Ratio 1.0 Urine Color (YELLOW) Urine Appearance (CLEAR) Urine pH (5.0-9.0) Ur Specific [place] (1.005-1.030) Urine Protein (NEGATIVE) Urine Glucose (UA) (NEGATIVE) Urine Ketones (NEGATIVE) Urine Occult Blood (NEGATIVE) Urine Nitrite (NEGATIVE) Urine Bilirubin (NEGATIVE) Urine Urobilinogen (0.2-1.0) mg/dL Ur Leukocyte Esterase (NEGATIVE) Urine RBC /HPF Urine WBC (0-5/HPF) /HPF Ur Epithelial Cells (NOT SEEN) /HPF Amorphous Sediment (NOT SEEN) /HPF Urine Bacteria (0-FEW/HPF) /HPF Urine Mucus (NOT SEEN) /LPF 01/28/20 01/28/20 Range/Units 21:12 21:25 WBC (5.0-10.0) 10^3/uL RBC (4.2-5.4) 10^6/uL Hgb (12.0-16.0) g/dL Hct (37.0-47.0) % MCV (80-100) fL MCH (27.0-34.0) pg MCHC (33.0-35.0) g/dL Plt Count (150-450) 10^3/uL Neut % (Auto) (42.2-75.2) % Lymph % (Auto) (20.5-50.1) % [place] % (Auto) (2-8) % Eos % (Auto) (1.0-3.0) % Baso % (Auto) (0.0-1.0) % PT 43.1 H D (9.0-12.0) SEC INR 4.6 H (0.9-1.2) Sodium (136-145) mmol/L Potassium (3.5-5.1) mmol/L Chloride (98-107) mmol/L Carbon Dioxide (21-32) mmol/L Anion Gap (7-13) mEq/L BUN (7-18) mg/dL Creatinine (0.55-1.02) mg/dL Est Cr Clr Drug Dosing mL/min Estimated GFR (MDRD) BUN/Creatinine Ratio (No establ ref range) Glucose (74-99) mg/dL Lactic Acid (0.4-2.0) mmol/L Calcium (8.5-10.1) mg/dL Total Bilirubin (0.2-1.0) mg/dL AST (15-37) U/L ALT (14-59) U/L Alkaline Phosphatase (46-116) U/L Troponin I (0.000-0.056) ng/mL B-Natriuretic Peptide (0-100) pg/ml Total Protein (6.4-8.2) g/dL Albumin (3.4-5.0) g/dL Globulin Albumin/Globulin Ratio Urine Color Light yellow (YELLOW) Urine Appearance Slightly cloudy (CLEAR) Urine pH 7.5 (5.0-9.0) Ur Specific [place] 1.020 (1.005-1.030) Urine Protein 100 H (NEGATIVE) Urine Glucose (UA) 100 H (NEGATIVE) Urine Ketones Negative (NEGATIVE) Urine Occult Blood Trace-intact H (NEGATIVE) Urine Nitrite Negative (NEGATIVE) Urine Bilirubin Negative (NEGATIVE) Urine Urobilinogen 0.2 (0.2-1.0) mg/dL Ur Leukocyte Esterase Moderate H (NEGATIVE) Urine RBC 0-5 /HPF Urine WBC 10-20 H (0-5/HPF) /HPF Ur Epithelial Cells Few (NOT SEEN) /HPF Amorphous Sediment Few (NOT SEEN) /HPF Urine Bacteria Rare (0-FEW/HPF) /HPF Urine Mucus Few H (NOT SEEN) /LPF Meds: Medications Discontinued Medications Generic Name Dose Route Start Last Admin Trade Name Freq PRN Reason Stop Dose Admin Albuterol/Ipratropium 3 ml 01/28/20 21:17 01/28/20 21:38 Duoneb 3.0-0.5 Mg/3 Ml NEB 01/28/20 21:18 3 ml ONETIME ONE Administration - Re-Assessments/Exams Free Text/Narrative Re-Assessment/Exam: 01/28/20 22:14 re-exam; s/p duoneb=much better and breathing better states pt, who also states has neb at home and has Rx for it. results discussed with daughter. Departure - Departure Time of Disposition: 22:15 Disposition: Home, Self-Care 01 Condition: Good Clinical Impression: COPD exacerbation - Discharge Information Instructions: Chronic Obstructive Pulmonary Disease, [id number] Forms: ED Department Discharge Additional Instructions: 1) take neb treatment 3 times daily as needed for breathing 2) don't take warfarin tomorrow 3) follow up with clinic for repeat INR Thursday Sepsis Event Note - Focused Exam Vital Signs: Vital Signs Temp Pulse Resp BP Pulse Ox 01/28/20 21:13 36.4 C 99 26 H 183/82 H 90 L Date Exam was Performed: 01/28/20 Time Exam was Performed: 22:14 - My Orders Last 24 Hours: My Active Orders 01/28/20 21:02 EKG Documentation Completion [RC] STAT Chest 1V Frontal [CR] Urgent 01/28/20 21:17 RT Aerosol Therapy [RC] ASDIRECTED 01/28/20 21:25 CULTURE URINE [RM] Stat - Assessment/Plan Last 24 Hours: My Active Orders 01/28/20 21:02 EKG Documentation Completion [RC] STAT Chest 1V Frontal [CR] Urgent 01/28/20 21:17 RT Aerosol Therapy [RC] ASDIRECTED 01/28/20 21:25 CULTURE URINE [RM] Stat
[2020-01-28 22:00] LABS: ANION GAP 12.6 mEq/L (7-13); CHLORIDE,CL 95 mmol/L (98-107); SODIUM,NA 136 mmol/L (136-145)
== END 2020-01-28 22:22 | disposition home or self-care (01) ==
LOC: DL.ED 21:01
DX: J44.1 Chronic obstructive pulmonary disease with (acute) exacerbation (principal); I48.91 Unspecified atrial fibrillation; I11.0 Hypertensive heart disease with heart failure; I50.9 Heart failure, unspecified; E78.00 Pure hypercholesterolemia, unspecified; M19.90 Unspecified osteoarthritis, unspecified site; K21.9 Gastro-esophageal reflux disease without esophagitis; E11.9 Type 2 diabetes mellitus without complications; Z79.84 Long term (current) use of oral hypoglycemic drugs; Z86.711 Personal history of pulmonary embolism; Z79.01 Long term (current) use of anticoagulants; Z86.73 Personal history of transient ischemic attack (TIA), and cerebral infarction without residual deficits; Z88.1 Allergy status to other antibiotic agents; Z88.8 Allergy status to other drugs, medicaments and biological substances
CPT/HCPCS: 36415; 71045; 80053; 81001; 83605; 83880; 84484; 85025; 85610; 87086; 93005; 99283; 99285-25; J7620-GY

== ENCOUNTER 2020-01-29 14:36 | Inpatient (IN) | payer MEDICARE, BC, OTHER ==
[2020-01-29] MEDS: Sodium Chloride 0.9% 10 ML Syringe FLUSH PRN ×3 (14:57→22:19)
[2020-01-29 16:04] LABS: CHLORIDE,CL 98 mmol/L (98-107); SODIUM,NA 137 mmol/L (136-145)
[2020-01-29] MEDS ORDERED: Furosemide 40 MG/4 ML VIAL IVPUSH ONE (16:24)
[2020-01-29] MEDS ORDERED: Potassium Chloride 10 MEQ Tab.ER PO ONE ×2 (16:43→17:52)
--- NOTE | 2020-01-29 16:45 | EDM.PDOC ---
"Scribed by Mona Quintanilla 01/29/20 [id number] for Debbie Reed MD ED HPI GENERAL MEDICAL PROBLEM - General Chief Complaint: Fever Stated Complaint: AMBULANCE Time Seen by Provider: 01/29/20 14:38 Source of Information: Reports: Patient, EMS, EMS Notes Reviewed, Old Records, RN, RN Notes Reviewed History Limitations: Reports: No Limitations - History of Present Illness INITIAL COMMENTS - FREE TEXT/NARRATIVE: Pt arrives to ER from home stating her family was over for Easter and thought she should go to the ER, so they called the ambulance. Pt was seen in the ER last night/health worker for shortness of breath, and diagnosed with COPD exacerbation and UTI. She received a DuoNeb Tx and Rx for Macrobid. Pt admits that she has shortness of breath periodically for years, but states her current shortness of breath is worse than usual. Family reported pt had low grade fevers over the last 2 or 3 days. Pt denies chest pain, cough, N/V/D, fever, or chills. She reports chronic constipation. She denies any recent travel, or exposure to confirmed or suspected Covid-19 cases. Onset: Unknown/Unsure Location: Reports: Generalized Quality: Reports: Other (Denies pain) Severity: Moderate Improves with: Reports: None Worsens with: Reports: None Associated Symptoms: Reports: No Other Symptoms Treatments B[employer]TER: Reports: Other Medication(s) (Macrobid 100mg) - Related Data Allergies Allergy/AdvReac Type Severity Reaction Status Date / Time amoxicillin Allergy Hives Verified 01/29/20 14:52 ezetimibe Allergy Cannot Verified 01/29/20 14:52 Remember morphine Allergy Confusion Verified 01/29/20 14:52 moxifloxacin Allergy Cannot Verified 01/29/20 14:52 Remember naproxen [From Aleve] Allergy Cannot Verified 01/29/20 14:52 Remember Yqakeoo-[id number]-Qpz Reductase Allergy Muscle Verified 01/29/20 14:52 Inhibitor Aches sulindac Allergy Cannot Verified 01/29/20 14:52 Remember Tetracyclines Allergy Cannot Verified 01/29/20 14:52 Remember Home Meds: Home Meds Fenofibrate 160 mg PO BEDTIME 04/20/15 [History] Metoprolol Succinate [Toprol XL] 100 mg PO DAILY 04/20/15 [History] metFORMIN [Glucophage] 1,000 mg PO BIDMEALS 04/20/15 [History] Pantoprazole [ProTONIX] 40 mg PO DAILY PRN 03/24/16 [History] cloNIDine [Catapres] 0.2 mg PO BID 02/10/17 [History] Cholecalciferol (Vitamin D3) [Vitamin D3] 2,000 unit PO DAILY 07/25/18 [History] Calcium Citrate/Vitamin D3 [Citracal + D Maximum Caplet] 1 each PO BEDTIME 03/02 [History] Albuterol [Proventil HFA] 2 puff INH Q4H PRN 08/23/19 [History] Albuterol/Ipratropium [DuoNeb 3.0-0.5 MG/3 ML] 3 ml INH Q4H PRN 08/23/19 [ History] Aspirin [Adult Low Dose Aspirin EC] 81 mg PO DAILY 08/23/19 [History] Ciclopirox/Ure/Camph/Menth/Euc [Ciclopirox 8% Treatment Kit] 34.6 ml TP DAILY [History] Ferrous Sulfate 325 mg PO .SUPPER 08/23/19 [History] Folic Acid 1 mg PO DAILY 08/23/19 [History] Magnesium Oxide [Magnesium] 100 mg PO DAILY 08/23/19 [History] [place]-3 Acid Ethyl Esters [Lovaza] 2 gm PO BID 08/23/19 [History] Propylene Glycol/Peg 400 [Systane 0.3-0.4% Eye Drops] 1 drop EYEBOTH BID [History] amLODIPine [Norvasc] 10 mg PO BEDTIME 08/23/19 [History] hydroCHLOROthiazide [Hydrochlorothiazide] 25 mg PO DAILY 08/23/19 [History] Warfarin [Coumadin] 2.5 mg PO DAILY 11/13/19 [History] Furosemide [Lasix] 40 mg PO DAILY #30 tablet 11/24/19 [Rx] Potassium Chloride [Klor-Con 10] 20 meq PO DAILY #30 tab.er 11/24/19 [Rx] Menthol/Methyl Salicylate [Icy Hot] 85 gm TOP QID PRN 11/27/19 [History] Nitrofurantoin Macrocrystal [Nitrofurantoin] 100 mg PO DAILY 01/29/20 [History] Past Medical History - Past Health History Medical/Surgical History: Denies Medical/Surgical History HEENT History: Reports: Impaired Vision Other HEENT History: wears glasses, is legally blind Cardiovascular History: Reports: Afib, Blood Clots/VTE/DVT, Heart Failure, High Cholesterol, Hypertension, Pacemaker Other Cardiovascular History: pauses in heart beat Respiratory History: Reports: COPD, PE, SOB, Other (See Below) Other Respiratory History: recent intubation Gastrointestinal History: Reports: GERD Other Gastrointestinal History: prolapsed rectum Genitourinary History: Reports: Retention, Urinary, Urinary Incontinence, UTI, Recurrent Other Genitourinary History: wears protection [employer] History: Reports: Musculoskeletal History: Reports: Back Pain, Chronic, Osteoarthritis, Other ( See Below) Other Musculoskeletal History: degenerative disc disease Neurological History: Reports: CVA, Headaches, Chronic, Other (See Below) Other Neuro History: cva in 2010 Psychiatric History: Reports: None Endocrine/Metabolic History: Reports: Diabetes, Type II Hematologic History: Reports: None Immunologic History: Reports: None Oncologic (Cancer) History: Reports: None Dermatologic History: Reports: None - Infectious Disease History Infectious Disease History: Reports: Chicken Pox, Measles - Past Surgical History Head Surgeries/Procedures: Reports: None HEENT Surgical History: Reports: None Cardiovascular Surgical History: Reports: Pacer Respiratory Surgical History: Reports: None GI Surgical History: Reports: Other (See Below) Other GI Surgeries/Procedures: Bowel resection Female Surgical History: Reports: Other (See Below) Other Female Surgeries/Procedures: Bladder surgery Musculoskeletal Surgical History: Reports: None Social & Family History - Family History Family Medical History: Noncontributory - Caffeine Use Caffeine Use: Reports: Coffee - Living Situation & Occupation Living situation: Reports: , Alone Occupation: Retired ED ROS GENERAL - Review of Systems Review Of Systems: Comprehensive ROS is negative, except as noted in HPI. ED EXAM, GENERAL - Physical Exam Exam: See Below Exam Limited By: No Limitations General Appearance: Alert, No Apparent Distress, Other (Frail elderly female, non-toxic appearing) Eye Exam: Bilateral Eye: EOMI, Normal Inspection, PERRL Nose: Normal Inspection, Normal Mucosa, No Blood Throat/Mouth: Normal Inspection, Normal Lips, Normal Teeth, Normal Gums, Normal Oropharynx, Normal Voice, No Airway Compromise Head: Atraumatic, Normocephalic Neck: Normal Inspection, Supple, Non-Tender, Full Range of Motion Respiratory/Chest: No Respiratory Distress, No Accessory Muscle Use, Chest Non- Tender, Decreased Breath Sounds, Crackles, Rales. No: Rhonchi, Wheezing, Stridor Cardiovascular: Regular Rate, Rhythm, No Edema (wearing compression stockings) GI/Abdominal: Normal Bowel Sounds, Soft, Non-Tender, No Organomegaly, No Distention, No Abnormal Bruit, No Mass Back Exam: Normal Inspection Extremities: Normal Inspection, Normal Range of Motion, Non-Tender, Normal Capillary Refill, No Pedal Edema Neurological: Alert, Oriented, CN II-XII Intact, Normal Cognition, No Motor/ Sensory Deficits Psychiatric: Normal Mood Skin Exam: Warm, Dry, Intact, Normal Color, No Rash EKG INTERPRETATION EKG Date: 01/29/20 Time: 14:56 Rhythm: Other (sinus rhythm) Rate (Beats/Min): 83 [place]: Normal P-Wave: Present QRS: LBBB (chronic) ST-T: Normal QT: Normal Comparison: No Change Course - Vital Signs Last Recorded V/S: Last Vital Signs Temp 98.7 F 01/29/20 14:50 Pulse 91 01/29/20 14:50 Resp 20 01/29/20 14:50 BP 159/66 H 01/29/20 14:50 Pulse Ox 92 L 01/29/20 14:50 - Orders/Labs/Meds Orders: Active Orders 24 hr Category Date Time Status Admission Diagnosis [ADT] Routine ADT 01/29/20 16:33 Ordered Patient Status [ADT] Routine ADT 01/29/20 16:33 Active EKG 12 Lead [EKG Documentation Completion] [RC] STAT Care 01/29/20 14:42 Active Peripheral IV Care [RC] . DIRECTED Care 01/29/20 14:43 Active Chest wo Cont [CT] Stat Exams 01/29/20 15:42 Taken CULTURE BLOOD [BC] Stat Lab 01/29/20 15:22 Received CULTURE URINE [RM] Stat Lab 01/29/20 16:44 Ordered Sodium Chloride 0.9% [Saline Flush] Med 01/29/20 14:42 Active 10 ml FLUSH ASDIRECTED PRN Isolation [COMM] Routine Oth 01/29/20 14:43 Active Peripheral IV Insertion Adult [OM.PC] Stat Oth 01/29/20 14:42 Ordered Medication Orders Sodium Chloride (Saline Flush) 10 ml FLUSH ASDIRECTED PRN PRN Reason: Keep Vein Open Last Admin: 01/29/20 14:57 Dose: 10 ml Labs: Laboratory Tests 01/29/20 01/29/20 01/29/20 Range/Units 15:22 15:22 15:22 WBC 13.9 H (5.0-10.0) 10^3/uL RBC 4.65 (4.2-5.4) 10^6/uL Hgb 11.1 L (12.0-16.0) g/dL Hct 33.9 L (37.0-47.0) % MCV 72.9 L (80-100) fL MCH 23.9 L (27.0-34.0) pg MCHC 32.7 L (33.0-35.0) g/dL Plt Count 295 (150-450) 10^3/uL Neut % (Auto) 85.3 H (42.2-75.2) % Lymph % (Auto) 7.7 L (20.5-50.1) % [place] % (Auto) 4.7 (2-8) % Eos % (Auto) 1.9 (1.0-3.0) % Baso % (Auto) 0.4 (0.0-1.0) % PT 29.6 H D (9.0-12.0) SEC INR 3.2 H (0.9-1.2) Sodium 137 (136-145) mmol/L Potassium 3.0 L (3.5-5.1) mmol/L Chloride 98 (98-107) mmol/L Carbon Dioxide 33 H (21-32) mmol/L Anion Gap 9.0 (7-13) mEq/L BUN 33 H (7-18) mg/dL Creatinine 1.09 H (0.55-1.02) mg/dL Est Cr Clr Drug Dosing 32.10 mL/min Estimated GFR (MDRD) 47 BUN/Creatinine Ratio 30.3 (No establ ref range) Glucose 186 H (74-99) mg/dL Lactic Acid (0.4-2.0) mmol/L Calcium 10.2 H (8.5-10.1) mg/dL Total Bilirubin 0.5 (0.2-1.0) mg/dL AST 23 (15-37) U/L ALT 24 (14-59) U/L Alkaline Phosphatase 36 L (46-116) U/L Troponin I < 0.017 (0.000-0.056) ng/mL B-Natriuretic Peptide 1280 H (0-100) pg/ml Total Protein 7.6 (6.4-8.2) g/dL Albumin 3.6 (3.4-5.0) g/dL Globulin 4.0 Albumin/Globulin Ratio 0.9 Urine Color (YELLOW) Urine Appearance (CLEAR) Urine pH (5.0-9.0) Ur Specific [place] (1.005-1.030) Urine Protein (NEGATIVE) Urine Glucose (UA) (NEGATIVE) Urine Ketones (NEGATIVE) Urine Occult Blood (NEGATIVE) Urine Nitrite (NEGATIVE) Urine Bilirubin (NEGATIVE) Urine Urobilinogen (0.2-1.0) mg/dL Ur Leukocyte Esterase (NEGATIVE) Urine RBC /HPF Urine WBC (0-5/HPF) /HPF Ur Epithelial Cells (NOT SEEN) /HPF Amorphous Sediment (NOT SEEN) /HPF Urine Bacteria (0-FEW/HPF) /HPF 01/29/20 01/29/20 Range/Units 15:22 16:01 WBC (5.0-10.0) 10^3/uL RBC (4.2-5.4) 10^6/uL Hgb (12.0-16.0) g/dL Hct (37.0-47.0) % MCV (80-100) fL MCH (27.0-34.0) pg MCHC (33.0-35.0) g/dL Plt Count (150-450) 10^3/uL Neut % (Auto) (42.2-75.2) % Lymph % (Auto) (20.5-50.1) % [place] % (Auto) (2-8) % Eos % (Auto) (1.0-3.0) % Baso % (Auto) (0.0-1.0) % PT (9.0-12.0) SEC INR (0.9-1.2) Sodium (136-145) mmol/L Potassium (3.5-5.1) mmol/L Chloride (98-107) mmol/L Carbon Dioxide (21-32) mmol/L Anion Gap (7-13) mEq/L BUN (7-18) mg/dL Creatinine (0.55-1.02) mg/dL Est Cr Clr Drug Dosing mL/min Estimated GFR (MDRD) BUN/Creatinine Ratio (No establ ref range) Glucose (74-99) mg/dL Lactic Acid 1.0 (0.4-2.0) mmol/L Calcium (8.5-10.1) mg/dL Total Bilirubin (0.2-1.0) mg/dL AST (15-37) U/L ALT (14-59) U/L Alkaline Phosphatase (46-116) U/L Troponin I (0.000-0.056) ng/mL B-Natriuretic Peptide (0-100) pg/ml Total Protein (6.4-8.2) g/dL Albumin (3.4-5.0) g/dL Globulin Albumin/Globulin Ratio Urine Color Yellow (YELLOW) Urine Appearance Slightly cloudy (CLEAR) Urine pH 8.0 (5.0-9.0) Ur Specific [place] 1.020 (1.005-1.030) Urine Protein >=300 H (NEGATIVE) Urine Glucose (UA) 250 H (NEGATIVE) Urine Ketones Negative (NEGATIVE) Urine Occult Blood Small H (NEGATIVE) Urine Nitrite Negative (NEGATIVE) Urine Bilirubin Negative (NEGATIVE) Urine Urobilinogen 0.2 (0.2-1.0) mg/dL Ur Leukocyte Esterase Small H (NEGATIVE) Urine RBC 10-20 H /HPF Urine WBC 20-30 H (0-5/HPF) /HPF Ur Epithelial Cells Rare (NOT SEEN) /HPF Amorphous Sediment Occasional (NOT SEEN) /HPF Urine Bacteria Rare (0-FEW/HPF) /HPF Influenza A and B: Negative. Meds: Medications Generic Name Dose Route Start Last Admin Trade Name Freq PRN Reason Stop Dose Admin Sodium Chloride 10 ml 01/29/20 14:42 01/29/20 16:37 Saline Flush FLUSH 10 ml ASDIRECTED PRN Administration Keep Vein Open Discontinued Medications Generic Name Dose Route Start Last Admin Trade Name Freq PRN Reason Stop Dose Admin Furosemide 40 mg 01/29/20 16:24 01/29/20 16:36 Lasix IVPUSH 01/29/20 16:25 40 mg NOW ONE Administration Potassium Chloride 40 meq 01/29/20 16:43 Klor-Con 10 PO 04/12/20 16:44 ONETIME ONE - Radiology Interpretation Free Text/Narrative:: [facility] [place] [facility] Final Radiology Report Call: [phone] assistance Online chat: [email or web address] Name: SANGEETHA BAZZI Age: 89Years F Date: 01/29/2020 SSN: -- : [id number] Study: CT CHEST WO Requesting Physician: DEBBIE REED Images: 270 Addl Studies: Provided Clinical History: Contrast: Without Contrast Medium: Contrast Amount: Contrast Method: Page 1 of 2 PROCEDURE INFORMATION: Exam: CT Chest Without Contrast Exam date and time: 01/29/2020 4:10 PM Age: 89 years old Clinical indication: Fever and shortness of breath and other: HX copd TECHNIQUE: Imaging protocol: Computed tomography of the chest without contrast. Radiation optimization: All CT scans at this facility use at least one of these dose optimization techniques: automated exposure control; mA and/or kV adjustment per patient size (includes targeted exams where dose is matched to clinical indication); or iterative reconstruction. COMPARISON: CT Chest w Cont 10/03/2019 9:02 AM FINDINGS: Tubes, catheters and devices: Left pacemaker properly positioned. Lungs: 1 cm nodule in the right lower lobe (/31). Subsegmental atelectatic changes in the lingula and right middle lobe. No mtizi infiltrates. Pleural space: Unremarkable. No pneumothorax. No pleural effusion. Heart: Unremarkable. No cardiomegaly. No pericardial effusion. Aorta: Aortic and coronary atherosclerosis. Lymph nodes: Unremarkable. No enlarged lymph nodes. Adrenals: Bilateral adrenal masses measuring up to 2 cm and 35 Hounsfield units. These are nonspecific. Bones/joints: Degenerative changes in the spine. Mild scoliosis in the lumbar spine, partially viewed. Schmorl's node in the superior endplate of T12. Soft tissues: Unremarkable. IMPRESSION: SANGEETHA BAZZI | Final Radiology Report CONFIDENTIALITY STATEMENT This report is intended only for use by the referring physician, and only in accordance with law. If you received this in error, call [phone]. Page 2 of 2 Bilateral adrenal masses measuring up to 2 cm and 35 Hounsfield units. These are nonspecific. Differential diagnosis includes lipid poor adenomas, primary adrenal masses or metastatic disease. These are stable making metastatic disease less likely. 1 cm nodule in the right lower lobe (2/31).For both low risk and high risk patients, consider CT at 3 months, PET/CT or biopsy. (Chidi et al., Fleischner Society, 2017) Subsegmental atelectatic changes in the lingula and right middle lobe. No mitzi infiltrates. Thank you for allowing us to participate in the care of your patient. Dictated and Authenticated by: Richi Travis MD 01/29/2020 4:28 PM Central Time ([place] & [place]) - Re-Assessments/Exams Free Text/Narrative Re-Assessment/Exam: 01/29/20 16:42 Pt not responding to home neb treatment, and c/o worsening shortness of breath. BNP increased from 363 yesterday to 1280 today. Plan to admit pt to Dr. Alexandre's hospitalist service. Departure - Departure Time of Disposition: 16:40 (admitted to Dr. Alexandre) Disposition: Admitted As Inpatient 67 Condition: Fair Clinical Impression: Generalized weakness, Hypokalemia Acute exacerbation of CHF (congestive heart failure) Qualifiers: Heart failure type: unspecified Qualified Code(s): I50.9 - Heart failure, unspecified UTI (urinary tract infection) Qualifiers: Urinary tract infection type: site unspecified Hematuria presence: without hematuria Qualified Code(s): N39.0 - Urinary tract infection, site not specified COPD (chronic obstructive pulmonary disease) Qualifiers: COPD type: unspecified COPD Qualified Code(s): J44.9 - Chronic obstructive pulmonary disease, unspecified - Discharge Information *PRESCRIPTION DRUG MONITORING PROGRAM REVIEWED*: Not Applicable *COPY OF PRESCRIPTION DRUG MONITORING REPORT IN PATIENT ERWIN: Not Applicable Forms: ED Department Discharge Sepsis Event Note - Focused Exam Vital Signs: Vital Signs Temp Pulse Resp BP Pulse Ox 01/29/20 14:50 98.7 F 91 20 159/66 H 92 L Date Exam was Performed: 01/29/20 Time Exam was Performed: 16:44 - My Orders Last 24 Hours: My Active Orders 01/29/20 14:42 EKG 12 Lead [EKG Documentation Completion] [RC] STAT Sodium Chloride 0.9% [Saline Flush] 10 ml FLUSH ASDIRECTED PRN Peripheral IV Insertion Adult [OM.PC] Stat 01/29/20 14:43 Peripheral IV Care [RC] . DIRECTED Isolation [COMM] Routine 01/29/20 15:22 CULTURE BLOOD [BC] Stat 01/29/20 15:42 Chest wo Cont [CT] Stat 01/29/20 16:33 Admission Diagnosis [ADT] Routine Patient Status [ADT] Routine 01/29/20 16:44 CULTURE URINE [RM] Stat - Assessment/Plan Last 24 Hours: My Active Orders 01/29/20 14:42 EKG 12 Lead [EKG Documentation Completion] [RC] STAT Sodium Chloride 0.9% [Saline Flush] 10 ml FLUSH ASDIRECTED PRN Peripheral IV Insertion Adult [OM.PC] Stat 01/29/20 14:43 Peripheral IV Care [RC] . DIRECTED Isolation [COMM] Routine 01/29/20 15:22 CULTURE BLOOD [BC] Stat 01/29/20 15:42 Chest wo Cont [CT] Stat 01/29/20 16:33 Admission Diagnosis [ADT] Routine Patient Status [ADT] Routine 01/29/20 16:44 CULTURE URINE [RM] Stat I have read and agree with the documentation that has been completed regarding this visit. By signing this record, I attest that the documentation was completed in my physical presence and is an accurate record of the encounter."
[2020-01-29] MEDS ORDERED: Albuterol 6.7 GM Inhaler INH PRN (17:44)
[2020-01-29] MEDS ORDERED: Albuterol/Ipratropium 3.0-0.5 MG/3 ML Neb Soln INH PRN (17:44)
[2020-01-29] MEDS ORDERED: Pantoprazole 40 MG Tab.CR PO PRN (17:44)
--- NOTE | 2020-01-29 17:54 | PCM.HP ---
H&P History of Present Illness - General Date of Service: 01/29/20 Admit Problem/Dx: Admission Diagnosis/Problem Admission Diagnosis/Problem Congestive heart failure - History of Present Illness Initial Comments - Free Text/Narative: The patient is an 89-year-old female with multiple medical problems including atrial fibrillation status post pacemaker placement, history of pulmonary embolism, hypertension, COPD, diabetes mellitus type 2. Patient presented to the emergency room complaining of progressive shortness of breath, associated generalized body malaise and weakness. BNP was elevated at 1200 from 300 yesterday. she was in the ED yesterday for subjective fevers and SOB and was discharged home on macrobid for possible UTI after receiving nebulizer treatment. she was brought back again to the ED today due to fever of 99, and hypoxia in the high 80s. in the ED, patient was found to be afebrile, saturating well on RA. lab work was remarkable for K 3, WBC 13K, and CT chest without contrast showed Subsegmental atelectatic changes in the lingula and right middle lobe. No mitzi infiltrates. COVID-19 was checked and she was admitted for management of acute decompensated diastolic heart failure. on interview, patient didn't know where she was. she reports coming in for a fever. she denied any other complaints. she has chronic sinusitis with rhinorrhea. - Related Data Allergies/Adverse Reactions: Allergies Allergy/AdvReac Type Severity Reaction Status Date / Time amoxicillin Allergy Hives Verified 01/29/20 17:31 ezetimibe Allergy Cannot Verified 01/29/20 17:31 Remember morphine Allergy Confusion Verified 01/29/20 17:31 moxifloxacin Allergy Cannot Verified 01/29/20 17:31 Remember naproxen [From Aleve] Allergy Cannot Verified 01/29/20 17:31 Remember Yzoxufc-Guo-Apz Reductase Allergy Muscle Verified 01/29/20 17:31 Inhibitor Aches sulindac Allergy Cannot Verified 01/29/20 17:31 Remember Tetracyclines Allergy Cannot Verified 01/29/20 17:31 Remember Home Medications: Home Meds Fenofibrate 160 mg PO BEDTIME 04/20/15 [History] Metoprolol Succinate [Toprol XL] 100 mg PO DAILY 04/20/15 [History] metFORMIN [Glucophage] 1,000 mg PO BIDMEALS 04/20/15 [History] Pantoprazole [ProTONIX] 40 mg PO DAILY PRN 03/24/16 [History] cloNIDine [Catapres] 0.2 mg PO BID 02/10/17 [History] Cholecalciferol (Vitamin D3) [Vitamin D3] 2,000 unit PO DAILY 07/25/18 [History] Calcium Citrate/Vitamin D3 [Citracal + D Maximum Caplet] 1 each PO BEDTIME 03/02 [History] Albuterol [Proventil HFA] 2 puff INH Q4H PRN 08/23/19 [History] Albuterol/Ipratropium [DuoNeb 3.0-0.5 MG/3 ML] 3 ml INH Q4H PRN 08/23/19 [ History] Aspirin [Adult Low Dose Aspirin EC] 81 mg PO DAILY 08/23/19 [History] Ciclopirox/Ure/Camph/Menth/Euc [Ciclopirox 8% Treatment Kit] 34.6 ml TP DAILY [History] Ferrous Sulfate 325 mg PO .SUPPER 08/23/19 [History] Folic Acid 1 mg PO DAILY 08/23/19 [History] Magnesium Oxide [Magnesium] 100 mg PO DAILY 08/23/19 [History] Raymond-3 Acid Ethyl Esters [Lovaza] 2 gm PO BID 08/23/19 [History] Propylene Glycol/Peg 400 [Systane 0.3-0.4% Eye Drops] 1 drop EYEBOTH BID [History] amLODIPine [Norvasc] 10 mg PO BEDTIME 08/23/19 [History] hydroCHLOROthiazide [Hydrochlorothiazide] 25 mg PO DAILY 08/23/19 [History] Warfarin [Coumadin] 2.5 mg PO DAILY 11/13/19 [History] Furosemide [Lasix] 40 mg PO DAILY #30 tablet 11/24/19 [Rx] Potassium Chloride [Klor-Con 10] 20 meq PO DAILY #30 tab.er 11/24/19 [Rx] Menthol/Methyl Salicylate [Icy Hot] 85 gm TOP QID PRN 11/27/19 [History] Nitrofurantoin Macrocrystal [Nitrofurantoin] 100 mg PO DAILY 01/29/20 [History] Past Medical History - Past Health History Medical/Surgical History: Denies Medical/Surgical History HEENT History: Reports: Impaired Vision Other HEENT History: wears glasses, is legally blind Cardiovascular History: Reports: Afib, Blood Clots/VTE/DVT, Heart Failure, High Cholesterol, Hypertension, Pacemaker Other Cardiovascular History: pauses in heart beat Respiratory History: Reports: COPD, PE, SOB, Other (See Below) Other Respiratory History: recent intubation Gastrointestinal History: Reports: GERD Other Gastrointestinal History: prolapsed rectum Genitourinary History: Reports: Retention, Urinary, Urinary Incontinence, UTI, Recurrent Other Genitourinary History: wears protection [employer]ED [employer] History: Reports: Musculoskeletal History: Reports: Back Pain, Chronic, Osteoarthritis, Other ( See Below) Other Musculoskeletal History: degenerative disc disease Neurological History: Reports: CVA, Headaches, Chronic, Other (See Below) Other Neuro History: cva in 2010 Psychiatric History: Reports: None Endocrine/Metabolic History: Reports: Diabetes, Type II Hematologic History: Reports: None Immunologic History: Reports: None Oncologic (Cancer) History: Reports: None Dermatologic History: Reports: None - Infectious Disease History Infectious Disease History: Reports: Chicken Pox, Measles - Past Surgical History Head Surgeries/Procedures: Reports: None HEENT Surgical History: Reports: None Cardiovascular Surgical History: Reports: Pacer Respiratory Surgical History: Reports: None GI Surgical History: Reports: Other (See Below) Other GI Surgeries/Procedures: Bowel resection Female Surgical History: Reports: Other (See Below) Other Female Surgeries/Procedures: Bladder surgery Musculoskeletal Surgical History: Reports: None Social & Family History - Family History Family Medical History: Noncontributory - Tobacco Use Smoking Status *Q: Never Smoker Second Hand Smoke Exposure: No - Caffeine Use Caffeine Use: Reports: Coffee - Recreational Drug Use Recreational Drug Use: No - Living Situation & Occupation Living situation: Reports: , Alone Occupation: Retired H&P Review of Systems - Review of Systems: Review Of Systems: Comprehensive ROS is negative, except as noted in HPI. Exam - Exam Exam: See Below - Vital Signs Vital Signs: Last Vital Signs Temp 37.1 C 01/29/20 14:50 Pulse 84 01/29/20 15:50 Resp 21 H 01/29/20 15:50 BP 143/87 H 01/29/20 16:45 Pulse Ox 90 L 01/29/20 15:50 Weight: 67.54 kg - Exam General: Alert, Cooperative Lungs: Decreased Breath Sounds, Crackles (over bases) Cardiovascular: Irregular Rhythm GI/Abdominal Exam: Normal Bowel Sounds, Soft, Non-Tender, No Distention Extremities: Normal Inspection, Pedal Edema (faint) Skin: Warm, Dry, Intact Neuro Extensive - Mental Status: Alert, Normal Mood/Affect Psychiatric: Alert, Normal Affect, Normal Mood - Patient Data Lab Results Last 24 hrs: Laboratory Results - last 24 hr 01/29/20 01/29/20 01/29/20 Range/Units 15:22 15:22 15:22 WBC 13.9 H (5.0-10.0) 10^3/uL RBC 4.65 (4.2-5.4) 10^6/uL Hgb 11.1 L (12.0-16.0) g/dL Hct 33.9 L (37.0-47.0) % MCV 72.9 L (80-100) fL MCH 23.9 L (27.0-34.0) pg MCHC 32.7 L (33.0-35.0) g/dL Plt Count 295 (150-450) 10^3/uL Neut % (Auto) 85.3 H (42.2-75.2) % Lymph % (Auto) 7.7 L (20.5-50.1) % Scurry % (Auto) 4.7 (2-8) % Eos % (Auto) 1.9 (1.0-3.0) % Baso % (Auto) 0.4 (0.0-1.0) % PT 29.6 H D (9.0-12.0) SEC INR 3.2 H (0.9-1.2) Sodium 137 (136-145) mmol/L Potassium 3.0 L (3.5-5.1) mmol/L Chloride 98 (98-107) mmol/L Carbon Dioxide 33 H (21-32) mmol/L Anion Gap 9.0 (7-13) mEq/L BUN 33 H (7-18) mg/dL Creatinine 1.09 H (0.55-1.02) mg/dL Est Cr Clr Drug Dosing 32.10 mL/min Estimated GFR (MDRD) 47 BUN/Creatinine Ratio 30.3 (No establ ref range) Glucose 186 H (74-99) mg/dL POC Glucose (83-110) mg/dl Lactic Acid (0.4-2.0) mmol/L Calcium 10.2 H (8.5-10.1) mg/dL Total Bilirubin 0.5 (0.2-1.0) mg/dL AST 23 (15-37) U/L ALT 24 (14-59) U/L Alkaline Phosphatase 36 L (46-116) U/L Troponin I < 0.017 (0.000-0.056) ng/mL B-Natriuretic Peptide 1280 H (0-100) pg/ml Total Protein 7.6 (6.4-8.2) g/dL Albumin 3.6 (3.4-5.0) g/dL Globulin 4.0 Albumin/Globulin Ratio 0.9 Urine Color (YELLOW) Urine Appearance (CLEAR) Urine pH (5.0-9.0) Ur Specific Eagle (1.005-1.030) Urine Protein (NEGATIVE) Urine Glucose (UA) (NEGATIVE) Urine Ketones (NEGATIVE) Urine Occult Blood (NEGATIVE) Urine Nitrite (NEGATIVE) Urine Bilirubin (NEGATIVE) Urine Urobilinogen (0.2-1.0) mg/dL Ur Leukocyte Esterase (NEGATIVE) Urine RBC /HPF Urine WBC (0-5/HPF) /HPF Ur Epithelial Cells (NOT SEEN) /HPF Amorphous Sediment (NOT SEEN) /HPF Urine Bacteria (0-FEW/HPF) /HPF 01/29/20 01/29/20 01/29/20 Range/Units 15:22 16:01 17:24 WBC (5.0-10.0) 10^3/uL RBC (4.2-5.4) 10^6/uL Hgb (12.0-16.0) g/dL Hct (37.0-47.0) % MCV (80-100) fL MCH (27.0-34.0) pg MCHC (33.0-35.0) g/dL Plt Count (150-450) 10^3/uL Neut % (Auto) (42.2-75.2) % Lymph % (Auto) (20.5-50.1) % Scurry % (Auto) (2-8) % Eos % (Auto) (1.0-3.0) % Baso % (Auto) (0.0-1.0) % PT (9.0-12.0) SEC INR (0.9-1.2) Sodium (136-145) mmol/L Potassium (3.5-5.1) mmol/L Chloride (98-107) mmol/L Carbon Dioxide (21-32) mmol/L Anion Gap (7-13) mEq/L BUN (7-18) mg/dL Creatinine (0.55-1.02) mg/dL Est Cr Clr Drug Dosing mL/min Estimated GFR (MDRD) BUN/Creatinine Ratio (No establ ref range) Glucose (74-99) mg/dL POC Glucose 148 H (83-110) mg/dl Lactic Acid 1.0 (0.4-2.0) mmol/L Calcium (8.5-10.1) mg/dL Total Bilirubin (0.2-1.0) mg/dL AST (15-37) U/L ALT (14-59) U/L Alkaline Phosphatase (46-116) U/L Troponin I (0.000-0.056) ng/mL B-Natriuretic Peptide (0-100) pg/ml Total Protein (6.4-8.2) g/dL Albumin (3.4-5.0) g/dL Globulin Albumin/Globulin Ratio Urine Color Yellow (YELLOW) Urine Appearance Slightly cloudy (CLEAR) Urine pH 8.0 (5.0-9.0) Ur Specific Eagle 1.020 (1.005-1.030) Urine Protein >=300 H (NEGATIVE) Urine Glucose (UA) 250 H (NEGATIVE) Urine Ketones Negative (NEGATIVE) Urine Occult Blood Small H (NEGATIVE) Urine Nitrite Negative (NEGATIVE) Urine Bilirubin Negative (NEGATIVE) Urine Urobilinogen 0.2 (0.2-1.0) mg/dL Ur Leukocyte Esterase Small H (NEGATIVE) Urine RBC 10-20 H /HPF Urine WBC 20-30 H (0-5/HPF) /HPF Ur Epithelial Cells Rare (NOT SEEN) /HPF Amorphous Sediment Occasional (NOT SEEN) /HPF Urine Bacteria Rare (0-FEW/HPF) /HPF Result Diagrams: 01/29/20 15:22 01/29/20 15:22 Candelario Results Last 24 hrs: Microbiology 01/29/20 14:59 Influenza Type A Antigen Screen - Final Nasal, Unspecified NEGATIVE INFLUENZA A VIRUS AG REFERENCE RANGE: NEGATIVE Influenza Type B Antigen Screen - Final NEGATIVE INFLUENZA B VIRUS AG REFERENCE RANGE: NEGATIVE Problem List Initiated/Reviewed/Updated: Yes Orders Last 24hrs: Active Orders 24 hr Category Date Time Status Admission Diagnosis [ADT] Routine ADT 01/29/20 16:33 Ordered Patient Status [ADT] Routine ADT 01/29/20 16:33 Active Height and Weight [RC] DAILY Care 01/29/20 17:48 Ordered Intake and Output [RC] QSHIFT Care 01/29/20 17:49 Ordered Oxygen Therapy [RC] PRN Care 01/29/20 17:48 Ordered Up With Assistance [RC] ASDIRECTED Care 01/29/20 17:48 Ordered VTE/DVT Education [RC] PER UNIT ROUTINE Care 01/29/20 17:48 Ordered Vital Signs [RC] Q4H Care 01/29/20 17:48 Ordered 2 Gram Sodium Diet [DIET] Diet 01/29/20 Dinner Ordered Chest wo Cont [CT] Stat Exams 01/29/20 15:42 Taken BASIC METABOLIC PANEL,BMP [CHEM] AM Lab 01/30/20 05:11 Ordered BASIC METABOLIC PANEL,BMP [CHEM] AM Lab 01/31/20 05:11 Ordered BASIC METABOLIC PANEL,BMP [CHEM] AM Lab 02/01/20 05:11 Ordered CBC WITH AUTO DIFF [HEME] AM Lab 01/30/20 05:11 Ordered CBC WITH AUTO DIFF [HEME] AM Lab 01/31/20 05:11 Ordered CBC WITH AUTO DIFF [HEME] AM Lab 02/01/20 05:11 Ordered CORONAVIRUS COVID-19 PCR PHL Routine Lab 01/29/20 16:50 Ordered CULTURE BLOOD [BC] Stat Lab 01/29/20 15:22 Received CULTURE URINE [RM] Stat Lab 01/29/20 16:44 Ordered Albuterol [Proventil HFA] Med 01/29/20 17:44 Ordered DOSE gm INH Q4H PRN Albuterol/Ipratropium [DuoNeb 3.0-0.5 MG/3 ML] Med 01/29/20 17:44 Ordered 3 ml INH Q4H PRN Aspirin [Halfprin] Med 01/30/20 09:00 Ordered 81 mg PO DAILY Fenofibrate [Fenofibrate] Med 01/29/20 21:00 Ordered 160 mg PO BEDTIME Ferrous Sulfate Med 01/29/20 17:45 Ordered 325 mg PO .SUPPER Furosemide [Lasix] Med 01/29/20 18:00 Ordered 60 mg IVPUSH BID Insulin Lispro [HumaLOG] Med 01/29/20 18:00 Ordered See Protocol SUBCUT WITHMEALSANDBED Metoprolol Succinate [Toprol XL] Med 01/30/20 09:00 Ordered 100 mg PO DAILY Pantoprazole [ProTONIX] Med 01/29/20 17:44 Ordered 40 mg PO DAILY PRN Pharmacy to Dose - Warfarin Med 01/29/20 18:00 Ordered 1 dose .XX ASDIRECTED Potassium Chloride [Klor-Con 10] Med 01/29/20 17:52 Once 20 meq PO ONETIME ONE Sodium Chloride 0.9% [Saline Flush] Med 01/29/20 14:42 Active 10 ml FLUSH ASDIRECTED PRN Warfarin [Coumadin] Med 01/30/20 09:00 Ordered 2.5 mg PO DAILY amLODIPine [Norvasc] Med 01/29/20 21:00 Ordered 10 mg PO BEDTIME cloNIDine [Catapres] Med 01/29/20 21:00 Ordered 0.2 mg PO BID hydroCHLOROthiazide Med 01/30/20 09:00 Ordered 25 mg PO DAILY Isolation [COMM] Routine Oth 01/29/20 14:43 Active Peripheral IV Insertion Adult [OM.PC] Stat Oth 01/29/20 14:42 Ordered Medication Orders Albuterol (Proventil Hfa) gm INH Q4H PRN PRN Reason: Wheezing Albuterol/Ipratropium (Duoneb 3.0-0.5 Mg/3 Ml) 3 ml INH Q4H PRN PRN Reason: Wheezing Amlodipine Besylate (Norvasc) 10 mg PO BEDTIME DREA Aspirin (Halfprin) 81 mg PO DAILY DREA Clonidine HCl (Catapres) 0.2 mg PO BID DREA Ferrous Sulfate (Ferrous Sulfate) 325 mg PO .SUPPER DREA Furosemide (Lasix) 60 mg IVPUSH BID DREA Hydrochlorothiazide (Hydrochlorothiazide) 25 mg PO DAILY RDEA Non-Formulary Medication (Fenofibrate [Fenofibrate]) 160 mg PO BEDTIME DREA Non-Formulary Medication (Metoprolol Succinate [Toprol Xl]) 100 mg PO DAILY DREA Pantoprazole Sodium (Protonix) 40 mg PO DAILY PRN PRN Reason: reflux Potassium Chloride (Klor-Con 10) 20 meq PO ONETIME ONE Stop: 01/29/20 17:53 Sodium Chloride (Saline Flush) 10 ml FLUSH ASDIRECTED PRN PRN Reason: Keep Vein Open Last Admin: 01/29/20 16:37 Dose: 10 ml Admin: 01/29/20 14:57 Dose: 10 ml Warfarin Sodium (Coumadin) 2.5 mg PO DAILY [facility] Warfarin Sodium (Pharmacy To Dose - Warfarin) 1 dose .XX ASDIRECTED [facility] Assessment/Plan Comment:: #. acute diastolic heart failure start patient on lasix 60 mg IV BID check labs daily monitor I&Os #. Subjective fever/shortness of breath COVID-19 sent, awaiting results #.Hypokalemia replete #.possible UTI patient is on macrobid will continue #. Afib continue home meds continue coumadin INR daily pharmacy to dose #. Diabetes mellitus type 2 Monitor blood sugar before meals and at bedtime SSI #. Hypertension continue home metoprolol, HCTZ #.DVT prophylaxis coumadin
[2020-01-29] MEDS ORDERED: Furosemide 40 MG/4 ML VIAL IVPUSH SCH (18:00)
[2020-01-29] MEDS: Insulin Lispro 100 Units/ML 3 ML Vial SUBCUT SCH ×2 (18:02→22:02)
[2020-01-29] MEDS ORDERED: NO WARFARIN DOSE NEEDED PO ONE (18:30)
[2020-01-29] MEDS ORDERED: Ferrous Sulfate 325 MG Tab PO SCH (18:30)
[2020-01-29] MEDS ORDERED: amLODIPine 5 MG Tab PO SCH (21:00)
[2020-01-29] MEDS ORDERED: Non-Formulary Medication 1 Each (Fenofibrate [Fenofibrate] 160 MG) PO SCH ×3 (21:00)
[2020-01-29] MEDS ORDERED: Melatonin 3 MG Tab PO SCH (21:00)
[2020-01-29] MEDS ORDERED: cloNIDine 0.1 MG Tab ONE (21:28)
[2020-01-29] MEDS ORDERED: amLODIPine 5 MG Tab ONE (21:28)
[2020-01-29] MEDS: cloNIDine 0.1 MG Tab PO SCH (22:08)
[2020-01-29] MEDS ORDERED: Ondansetron 4 MG/2 ML SDV IVPUSH PRN (23:57)
[2020-01-30] MEDS: Sodium Chloride 0.9% 10 ML Syringe FLUSH PRN (00:36)
[2020-01-30 06:56] LABS: ANION GAP 9.5 mEq/L (7-13)
[2020-01-30] MEDS ORDERED: Aspirin 81 MG Tab.EC PO SCH (09:00)
[2020-01-30] MEDS ORDERED: Metoprolol Succinate 50 MG Tab.ER PO SCH (09:00)
[2020-01-30] MEDS ORDERED: Hydrochlorothiazide 25 MG Tab PO SCH (09:00)
[2020-01-30] MEDS ORDERED: Nitrofurantoin Monohydrate/Macrocrystalline 100 MG Cap PO SCH (09:00)
[2020-01-30] MEDS ORDERED: Furosemide 40 MG Tab PO SCH ×3 (09:00)
[2020-01-30] MEDS ORDERED: Warfarin 2.5 MG Tab PO SCH ×4 (09:00)
[2020-01-30] MEDS ORDERED: Potassium Chloride 10 MEQ Tab.ER PO ONE (09:03)
--- NOTE | 2020-01-30 09:26 | PCM.PN ---
- General Info Date of Service: 01/30/20 Admission Dx/Problem (Free Text): Admission Diagnosis/Problem Admission Diagnosis/Problem Congestive heart failure Subjective Update: she reports feeling well. she had an episode of R shoulder pain this AM that resolved spontaneously. no nausea or vomiting now, but did have a large vomit yesterday. no other complaints. - Review of Systems General: Reports: No Symptoms Pulmonary: Reports: No Symptoms Cardiovascular: Reports: No Symptoms Gastrointestinal: Reports: No Symptoms - Patient Data Vitals - Most Recent: Last Vital Signs Temp 36.5 C 01/30/20 08:00 Pulse 89 01/30/20 08:00 Resp 20 01/30/20 08:00 BP 154/72 H 01/30/20 08:00 Pulse Ox 90 L 01/30/20 08:00 Weight - Most Recent: 65.726 kg I&O - Last 24 Hours: Intake & Output 01/29/20 01/30/20 01/30/20 22:59 06:59 14:59 Intake Total 550 550 Output Total 1450 Balance 550 -900 Lab Results Last 24 Hours: Laboratory Results - last 24 hr 01/29/20 01/29/20 01/29/20 Range/Units 15:22 15:22 15:22 WBC 13.9 H (5.0-10.0) 10^3/uL RBC 4.65 (4.2-5.4) 10^6/uL Hgb 11.1 L (12.0-16.0) g/dL Hct 33.9 L (37.0-47.0) % MCV 72.9 L (80-100) fL MCH 23.9 L (27.0-34.0) pg MCHC 32.7 L (33.0-35.0) g/dL Plt Count 295 (150-450) 10^3/uL Neut % (Auto) 85.3 H (42.2-75.2) % Lymph % (Auto) 7.7 L (20.5-50.1) % [place] % (Auto) 4.7 (2-8) % Eos % (Auto) 1.9 (1.0-3.0) % Baso % (Auto) 0.4 (0.0-1.0) % PT 29.6 H D (9.0-12.0) SEC INR 3.2 H (0.9-1.2) Sodium 137 (136-145) mmol/L Potassium 3.0 L (3.5-5.1) mmol/L Chloride 98 (98-107) mmol/L Carbon Dioxide 33 H (21-32) mmol/L Anion Gap 9.0 (7-13) mEq/L BUN 33 H (7-18) mg/dL Creatinine 1.09 H (0.55-1.02) mg/dL Est Cr Clr Drug Dosing 32.10 mL/min Estimated GFR (MDRD) 47 BUN/Creatinine Ratio 30.3 (No establ ref range) Glucose 186 H (74-99) mg/dL POC Glucose (83-110) mg/dl Lactic Acid (0.4-2.0) mmol/L Calcium 10.2 H (8.5-10.1) mg/dL Total Bilirubin 0.5 (0.2-1.0) mg/dL AST 23 (15-37) U/L ALT 24 (14-59) U/L Alkaline Phosphatase 36 L (46-116) U/L Troponin I < 0.017 (0.000-0.056) ng/mL B-Natriuretic Peptide 1280 H (0-100) pg/ml Total Protein 7.6 (6.4-8.2) g/dL Albumin 3.6 (3.4-5.0) g/dL Globulin 4.0 Albumin/Globulin Ratio 0.9 Urine Color (YELLOW) Urine Appearance (CLEAR) Urine pH (5.0-9.0) Ur Specific [place] (1.005-1.030) Urine Protein (NEGATIVE) Urine Glucose (UA) (NEGATIVE) Urine Ketones (NEGATIVE) Urine Occult Blood (NEGATIVE) Urine Nitrite (NEGATIVE) Urine Bilirubin (NEGATIVE) Urine Urobilinogen (0.2-1.0) mg/dL Ur Leukocyte Esterase (NEGATIVE) Urine RBC /HPF Urine WBC (0-5/HPF) /HPF Ur Epithelial Cells (NOT SEEN) /HPF Amorphous Sediment (NOT SEEN) /HPF Urine Bacteria (0-FEW/HPF) /HPF 01/29/20 01/29/20 01/29/20 Range/Units 15:22 16:01 17:24 WBC (5.0-10.0) 10^3/uL RBC (4.2-5.4) 10^6/uL Hgb (12.0-16.0) g/dL Hct (37.0-47.0) % MCV (80-100) fL MCH (27.0-34.0) pg MCHC (33.0-35.0) g/dL Plt Count (150-450) 10^3/uL Neut % (Auto) (42.2-75.2) % Lymph % (Auto) (20.5-50.1) % [place] % (Auto) (2-8) % Eos % (Auto) (1.0-3.0) % Baso % (Auto) (0.0-1.0) % PT (9.0-12.0) SEC INR (0.9-1.2) Sodium (136-145) mmol/L Potassium (3.5-5.1) mmol/L Chloride (98-107) mmol/L Carbon Dioxide (21-32) mmol/L Anion Gap (7-13) mEq/L BUN (7-18) mg/dL Creatinine (0.55-1.02) mg/dL Est Cr Clr Drug Dosing mL/min Estimated GFR (MDRD) BUN/Creatinine Ratio (No establ ref range) Glucose (74-99) mg/dL POC Glucose 148 H (83-110) mg/dl Lactic Acid 1.0 (0.4-2.0) mmol/L Calcium (8.5-10.1) mg/dL Total Bilirubin (0.2-1.0) mg/dL AST (15-37) U/L ALT (14-59) U/L Alkaline Phosphatase (46-116) U/L Troponin I (0.000-0.056) ng/mL B-Natriuretic Peptide (0-100) pg/ml Total Protein (6.4-8.2) g/dL Albumin (3.4-5.0) g/dL Globulin Albumin/Globulin Ratio Urine Color Yellow (YELLOW) Urine Appearance Slightly cloudy (CLEAR) Urine pH 8.0 (5.0-9.0) Ur Specific [place] 1.020 (1.005-1.030) Urine Protein >=300 H (NEGATIVE) Urine Glucose (UA) 250 H (NEGATIVE) Urine Ketones Negative (NEGATIVE) Urine Occult Blood Small H (NEGATIVE) Urine Nitrite Negative (NEGATIVE) Urine Bilirubin Negative (NEGATIVE) Urine Urobilinogen 0.2 (0.2-1.0) mg/dL Ur Leukocyte Esterase Small H (NEGATIVE) Urine RBC 10-20 H /HPF Urine WBC 20-30 H (0-5/HPF) /HPF Ur Epithelial Cells Rare (NOT SEEN) /HPF Amorphous Sediment Occasional (NOT SEEN) /HPF Urine Bacteria Rare (0-FEW/HPF) /HPF 01/29/20 01/30/20 01/30/20 Range/Units 21:55 06:21 06:21 WBC 10.8 H (5.0-10.0) 10^3/uL RBC 4.45 (4.2-5.4) 10^6/uL Hgb 10.8 L (12.0-16.0) g/dL Hct 33.4 L (37.0-47.0) % MCV 75.1 L (80-100) fL MCH 24.3 L (27.0-34.0) pg MCHC 32.3 L (33.0-35.0) g/dL Plt Count 270 (150-450) 10^3/uL Neut % (Auto) 79.6 H (42.2-75.2) % Lymph % (Auto) 9.5 L (20.5-50.1) % [place] % (Auto) 5.0 (2-8) % Eos % (Auto) 5.4 H (1.0-3.0) % Baso % (Auto) 0.5 (0.0-1.0) % PT (9.0-12.0) SEC INR (0.9-1.2) Sodium 141 (136-145) mmol/L Potassium 3.5 (3.5-5.1) mmol/L Chloride 100 (98-107) mmol/L Carbon Dioxide 35 H (21-32) mmol/L Anion Gap 9.5 (7-13) mEq/L BUN 31 H (7-18) mg/dL Creatinine 1.14 H (0.55-1.02) mg/dL Est Cr Clr Drug Dosing 30.69 mL/min Estimated GFR (MDRD) 45 BUN/Creatinine Ratio (No establ ref range) Glucose 191 H (74-99) mg/dL POC Glucose 217 H (83-110) mg/dl Lactic Acid (0.4-2.0) mmol/L Calcium 10.1 (8.5-10.1) mg/dL Total Bilirubin (0.2-1.0) mg/dL AST (15-37) U/L ALT (14-59) U/L Alkaline Phosphatase (46-116) U/L Troponin I (0.000-0.056) ng/mL B-Natriuretic Peptide (0-100) pg/ml Total Protein (6.4-8.2) g/dL Albumin (3.4-5.0) g/dL Globulin Albumin/Globulin Ratio Urine Color (YELLOW) Urine Appearance (CLEAR) Urine pH (5.0-9.0) Ur Specific [place] (1.005-1.030) Urine Protein (NEGATIVE) Urine Glucose (UA) (NEGATIVE) Urine Ketones (NEGATIVE) Urine Occult Blood (NEGATIVE) Urine Nitrite (NEGATIVE) Urine Bilirubin (NEGATIVE) Urine Urobilinogen (0.2-1.0) mg/dL Ur Leukocyte Esterase (NEGATIVE) Urine RBC /HPF Urine WBC (0-5/HPF) /HPF Ur Epithelial Cells (NOT SEEN) /HPF Amorphous Sediment (NOT SEEN) /HPF Urine Bacteria (0-FEW/HPF) /HPF 01/30/20 01/30/20 Range/Units 06:21 08:17 WBC (5.0-10.0) 10^3/uL RBC (4.2-5.4) 10^6/uL Hgb (12.0-16.0) g/dL Hct (37.0-47.0) % MCV (80-100) fL MCH (27.0-34.0) pg MCHC (33.0-35.0) g/dL Plt Count (150-450) 10^3/uL Neut % (Auto) (42.2-75.2) % Lymph % (Auto) (20.5-50.1) % [place] % (Auto) (2-8) % Eos % (Auto) (1.0-3.0) % Baso % (Auto) (0.0-1.0) % PT 27.9 H (9.0-12.0) SEC INR 3.0 H (0.9-1.2) Sodium (136-145) mmol/L Potassium (3.5-5.1) mmol/L Chloride (98-107) mmol/L Carbon Dioxide (21-32) mmol/L Anion Gap (7-13) mEq/L BUN (7-18) mg/dL Creatinine (0.55-1.02) mg/dL Est Cr Clr Drug Dosing mL/min Estimated GFR (MDRD) BUN/Creatinine Ratio (No establ ref range) Glucose (74-99) mg/dL POC Glucose 181 H (83-110) mg/dl Lactic Acid (0.4-2.0) mmol/L Calcium (8.5-10.1) mg/dL Total Bilirubin (0.2-1.0) mg/dL AST (15-37) U/L ALT (14-59) U/L Alkaline Phosphatase (46-116) U/L Troponin I (0.000-0.056) ng/mL B-Natriuretic Peptide (0-100) pg/ml Total Protein (6.4-8.2) g/dL Albumin (3.4-5.0) g/dL Globulin Albumin/Globulin Ratio Urine Color (YELLOW) Urine Appearance (CLEAR) Urine pH (5.0-9.0) Ur Specific [place] (1.005-1.030) Urine Protein (NEGATIVE) Urine Glucose (UA) (NEGATIVE) Urine Ketones (NEGATIVE) Urine Occult Blood (NEGATIVE) Urine Nitrite (NEGATIVE) Urine Bilirubin (NEGATIVE) Urine Urobilinogen (0.2-1.0) mg/dL Ur Leukocyte Esterase (NEGATIVE) Urine RBC /HPF Urine WBC (0-5/HPF) /HPF Ur Epithelial Cells (NOT SEEN) /HPF Amorphous Sediment (NOT SEEN) /HPF Urine Bacteria (0-FEW/HPF) /HPF [place] Results Last 24 Hours: Microbiology 01/29/20 16:44 Urine Culture - Preliminary Urine, Catheterized NO GROWTH AFTER 1 DAY 01/29/20 14:59 Influenza Type A Antigen Screen - Final Nasal, Unspecified NEGATIVE INFLUENZA A VIRUS AG REFERENCE RANGE: NEGATIVE Influenza Type B Antigen Screen - Final NEGATIVE INFLUENZA B VIRUS AG REFERENCE RANGE: NEGATIVE Med Orders - Current: Current Medications Albuterol (Proventil Hfa) 0 gm INH Q4H PRN PRN Reason: Wheezing Albuterol/Ipratropium (Duoneb 3.0-0.5 Mg/3 Ml) 3 ml INH Q4H PRN PRN Reason: Wheezing Amlodipine Besylate (Norvasc) 10 mg PO BEDTIME [facility] Last Admin: 01/29/20 22:09 Dose: 10 mg Aspirin (Halfprin) 81 mg PO DAILY [facility] Clonidine HCl (Catapres) 0.2 mg PO BID [facility] Last Admin: 01/29/20 22:08 Dose: 0.2 mg Ferrous Sulfate (Ferrous Sulfate) 325 mg PO PCDINNER [facility] Last Admin: 01/29/20 18:18 Dose: 325 mg Furosemide (Lasix) 60 mg PO BID [facility] Furosemide (Lasix) 60 mg PO BID [facility] Hydrochlorothiazide (Hydrochlorothiazide) 25 mg PO DAILY [facility] Insulin Human Lispro (Humalog) 0 unit SUBCUT WITHMEALSANDBED [facility]; Protocol Last Admin: 01/29/20 22:02 Dose: 2 units Melatonin (Melatonin) 6 mg PO BEDTIME [facility] Metoprolol Succinate (Toprol Xl) 100 mg PO DAILY [facility] Nitrofurantoin Macrocrystals (Macrobid) 100 mg PO DAILY [facility] Non-Formulary Medication (Fenofibrate [Fenofibrate]) 160 mg PO BEDTIME [facility] Non-Formulary Medication (Fenofibrate [Fenofibrate]) 160 mg PO BEDTIME [facility] Ondansetron HCl (Zofran) 4 mg IVPUSH Q6H PRN PRN Reason: Nausea/Vomiting Pantoprazole Sodium (Protonix) 40 mg PO ACBREAKFAST PRN PRN Reason: reflux Sodium Chloride (Saline Flush) 10 ml FLUSH ASDIRECTED PRN PRN Reason: Keep Vein Open Last Admin: 01/30/20 00:36 Dose: 10 ml Warfarin Sodium (Pharmacy To Dose - Warfarin) 1 dose .XX ASDIRECTED [facility] Warfarin Sodium (Pharmacy To Dose - Warfarin) 1 dose .XX ASDIRECTED [facility] Discontinued Medications Amlodipine Besylate (Norvasc) Confirm Administered Dose 10 mg .ROUTE .STK-MED ONE Stop: 01/29/20 21:29 Last Admin: 01/29/20 22:56 Dose: Not Given Clonidine HCl (Catapres) Confirm Administered Dose 0.2 mg .ROUTE .STK-MED ONE Stop: 01/29/20 21:29 Last Admin: 01/29/20 22:56 Dose: Not Given Furosemide (Lasix) 40 mg IVPUSH NOW ONE Stop: 01/29/20 16:25 Last Admin: 01/29/20 16:36 Dose: 40 mg Furosemide (Lasix) 60 mg IVPUSH BID [facility] Last Admin: 01/29/20 18:03 Dose: Not Given Furosemide (Lasix) 60 mg PO BID [facility] Furosemide (Lasix) 60 mg PO BID [facility] Non-Formulary Medication (Fenofibrate [Fenofibrate]) 160 mg PO BEDTIME [facility] No Warfarin Dose (Needed) 0 each PO ONETIME ONE Stop: 01/29/20 18:31 Last Admin: 01/29/20 18:19 Dose: Not Given Non-Formulary Medication (Fenofibrate [Fenofibrate]) 160 mg PO BEDTIME [facility] Potassium Chloride (Klor-Con 10) 40 meq PO ONETIME ONE Stop: 01/29/20 16:44 Last Admin: 01/29/20 17:57 Dose: 40 meq Potassium Chloride (Klor-Con 10) 20 meq PO ONETIME ONE Stop: 01/29/20 17:53 Last Admin: 01/29/20 18:04 Dose: 20 meq Potassium Chloride (Klor-Con 10) 40 meq PO ONETIME ONE Stop: 01/30/20 09:04 Warfarin Sodium (Coumadin) 2.5 mg PO DAILY [facility] Warfarin Sodium (Pharmacy To Dose - Warfarin) 1 dose .XX ASDIRECTED [facility] Warfarin Sodium (Coumadin) 2.5 mg PO DAILY [facility] Warfarin Sodium (Pharmacy To Dose - Warfarin) 1 dose .XX ASDIRECTED [facility] Warfarin Sodium (Coumadin) 2.5 mg PO DAILY [facility] Warfarin Sodium (Coumadin) 2.5 mg PO DAILY [facility] - Exam General: Alert, Oriented Lungs: Decreased Breath Sounds (over bases) Cardiovascular: Regular Rate GI/Abdominal Exam: Normal Bowel Sounds, Soft, Non-Tender Extremities: Normal Inspection, No Pedal Edema Skin: Warm, Dry, Intact Psy/Mental Status: Alert, Normal Affect, Normal Mood Sepsis Event Note - Evaluation Sepsis Screening Result: No Definite Risk - Focused Exam Vital Signs: Vital Signs Temp Pulse Resp BP BP Pulse Ox 01/30/20 08:00 36.5 C 89 20 154/72 H 90 L 01/30/20 00:00 36.8 C 75 20 136/56 L 90 L 01/29/20 22:09 155/76 H 01/29/20 22:08 155/76 H Date Exam was Performed: 01/30/20 Time Exam was Performed: 10:19 - Problem List Review Problem List Initiated/Reviewed/Updated: Yes - My Orders Last 24 Hours: My Active Orders 01/29/20 17:44 Albuterol [Proventil HFA] 0 gm INH Q4H PRN Albuterol/Ipratropium [DuoNeb 3.0-0.5 MG/3 ML] 3 ml INH Q4H PRN Pantoprazole [ProTONIX] 40 mg PO ACBREAKFAST PRN 01/29/20 17:48 Height and Weight [RC] 06 Oxygen Therapy [RC] .PRN Up With Assistance [RC] ASDIRECTED VTE/DVT Education [RC] PER UNIT ROUTINE Vital Signs [RC] 00,04,08,12,16,01/29/20 17:49 Intake and Output [RC] QSHIFT 01/29/20 18:00 Insulin Lispro [HumaLOG] See Protocol SUBCUT WITHMEALSANDBED Warfarin Pharmacy to Dose [Pharmacy to Dose - Warfarin] 1 dose .XX ASDIRECTED Warfarin Pharmacy to Dose [Pharmacy to Dose - Warfarin] 1 dose .XX ASDIRECTED 01/29/20 18:09 Code Status [Resuscitation Status] Routine 01/29/20 18:30 Ferrous Sulfate 325 mg PO PCDINNER 01/29/20 18:32 Urinary Catheter Assessment [RC] ,01/29/20 18:45 Insert Jackson Catheter [Insert Urinary Catheter] [OM.PC] Q24H 01/29/20 19:28 Isolation [COMM] Routine 01/29/20 21:00 Fenofibrate [Fenofibrate] 160 mg PO BEDTIME Fenofibrate [Fenofibrate] 160 mg PO BEDTIME Melatonin 6 mg PO BEDTIME amLODIPine [Norvasc] 10 mg PO BEDTIME cloNIDine [Catapres] 0.2 mg PO BID 01/29/20 23:57 Ondansetron [Zofran] 4 mg IVPUSH Q6H PRN 01/29/20 Dinner 2 Gram Sodium Diet [DIET] 01/30/20 09:00 Aspirin [Halfprin] 81 mg PO DAILY Furosemide [Lasix] 60 mg PO BID Furosemide [Lasix] 60 mg PO BID Metoprolol Succinate [Toprol XL] 100 mg PO DAILY Nitrofurantoin [place]/Macrocryst [Macrobid] 100 mg PO DAILY hydroCHLOROthiazide 25 mg PO DAILY 01/31/20 05:11 BASIC METABOLIC PANEL,BMP [CHEM] AM CBC WITH AUTO DIFF [HEME] AM INR,PT,PROTHROMBIN TIME [COAG] AM 02/01/20 05:11 BASIC METABOLIC PANEL,BMP [CHEM] AM CBC WITH AUTO DIFF [HEME] AM INR,PT,PROTHROMBIN TIME [COAG] AM - Plan Plan:: #. acute diastolic heart failure continue patient on lasix 60 mg IV BID check labs daily monitor I&Os jackson catheter care #. Subjective fever/shortness of breath COVID-19 sent, awaiting results #.Hypokalemia replete #.possible UTI patient is on macrobid will continue #. Afib continue home meds continue coumadin INR daily pharmacy to dose #. Diabetes mellitus type 2 Monitor blood sugar before meals and at bedtime SSI #. Hypertension continue home metoprolol, HCTZ #.DVT prophylaxis coumadin
[2020-01-30] MEDS: cloNIDine 0.1 MG Tab PO SCH ×3 (09:38→21:05)
[2020-01-30] MEDS: Insulin Lispro 100 Units/ML 3 ML Vial SUBCUT SCH ×5 (09:56→21:00)
[2020-01-30] MEDS: Aspirin 81 MG Tab.EC PO SCH (09:58)
[2020-01-30] MEDS: Hydrochlorothiazide 25 MG Tab PO SCH (09:59)
[2020-01-30] MEDS: Metoprolol Succinate 50 MG Tab.ER PO SCH (09:59)
[2020-01-30] MEDS: Acetaminophen 325 MG Tab PO PRN ×2 (10:00→21:03)
[2020-01-30] MEDS ORDERED: Albuterol 6.7 GM Inhaler INH PRN (10:04)
[2020-01-30] MEDS ORDERED: Albuterol/Ipratropium 3.0-0.5 MG/3 ML Neb Soln INH PRN (10:05)
[2020-01-30] MEDS ORDERED: Ondansetron 4 MG/2 ML SDV IVPUSH PRN (10:06)
[2020-01-30] MEDS ORDERED: Pantoprazole 40 MG Tab.CR PO PRN (10:07)
[2020-01-30] MEDS ORDERED: Sodium Chloride 0.9% 10 ML Syringe FLUSH PRN (10:07)
[2020-01-30] MEDS: Furosemide 40 MG Tab PO SCH ×2 (10:26→13:06)
[2020-01-30] MEDS: Fenofibrate Nanocrystallized 145 MG Tab PO SCH ×2 (16:35→21:06)
[2020-01-30] MEDS: Ferrous Sulfate 325 MG Tab PO SCH ×2 (17:18→20:15)
[2020-01-30] MEDS ORDERED: Melatonin 3 MG Tab PO SCH (21:00)
[2020-01-30] MEDS ORDERED: amLODIPine 5 MG Tab PO SCH (21:00)
[2020-01-31 06:38] LABS: ANION GAP 11.9 mEq/L (7-13)
[2020-01-31] MEDS: Furosemide 40 MG Tab PO SCH (08:44)
[2020-01-31] MEDS: cloNIDine 0.1 MG Tab PO SCH (08:45)
[2020-01-31] MEDS: Aspirin 81 MG Tab.EC PO SCH (08:46)
[2020-01-31] MEDS: Hydrochlorothiazide 25 MG Tab PO SCH (08:46)
[2020-01-31] MEDS: Metoprolol Succinate 50 MG Tab.ER PO SCH (08:46)
[2020-01-31] MEDS: Insulin Lispro 100 Units/ML 3 ML Vial SUBCUT SCH ×3 (08:47→17:17)
--- NOTE | 2020-01-31 09:57 | PCM.DCSUM1 ---
Discharge Summary - Hospital Course Free Text/Narrative:: The patient is an 89-year-old female with multiple medical problems including atrial fibrillation status post pacemaker placement, history of pulmonary embolism, hypertension, COPD, diabetes mellitus type 2. Patient presented to the emergency room complaining of progressive shortness of breath, associated generalized body malaise and weakness. BNP was elevated at 1200s. she was treated for decompensated diastolic heart failure and she felt well. she was discharged home in stable condition. she will need a BMP in 1 week following discharge and PCP appointment. at time of discharge, COVID-19 results were still pending. she needs to quarantine until results are back. - Discharge Data Discharge Date: 01/31/20 Discharge Disposition: Home, Self-Care 01 Condition: Good - Referral to Home Health Primary Care Physician: Umberto Weeks MD - Discharge Plan *PRESCRIPTION DRUG MONITORING PROGRAM REVIEWED*: Not Applicable *COPY OF PRESCRIPTION DRUG MONITORING REPORT IN PATIENT ERWIN: Not Applicable Home Medications: Home Meds Fenofibrate 160 mg PO BEDTIME 04/20/15 [History] Metoprolol Succinate [Toprol XL] 100 mg PO DAILY 04/20/15 [History] metFORMIN [Glucophage] 1,000 mg PO BIDMEALS 04/20/15 [History] Pantoprazole [ProTONIX] 40 mg PO DAILY PRN 03/24/16 [History] cloNIDine [Catapres] 0.2 mg PO BID 02/10/17 [History] Cholecalciferol (Vitamin D3) [Vitamin D3] 2,000 unit PO DAILY 07/25/18 [History] Calcium Citrate/Vitamin D3 [Citracal + D Maximum [place]] 1 each PO BEDTIME 03/02 [History] Albuterol [Proventil HFA] 2 puff INH Q4H PRN 08/23/19 [History] Albuterol/Ipratropium [DuoNeb 3.0-0.5 MG/3 ML] 3 ml INH Q4H PRN 08/23/19 [ History] Aspirin [Adult Low Dose Aspirin EC] 81 mg PO DAILY 08/23/19 [History] Ciclopirox/Ure/Camph/Menth/Euc [Ciclopirox 8% Treatment Kit] 34.6 ml TP DAILY [History] Ferrous Sulfate 325 mg PO .SUPPER 08/23/19 [History] Folic Acid 1 mg PO DAILY 08/23/19 [History] Magnesium Oxide [Magnesium] 100 mg PO DAILY 08/23/19 [History] [place]-3 Acid Ethyl Esters [Lovaza] 2 gm PO BID 08/23/19 [History] Propylene Glycol/Peg 400 [Systane 0.3-0.4% Eye Drops] 1 drop EYEBOTH BID [History] amLODIPine [Norvasc] 10 mg PO BEDTIME 08/23/19 [History] hydroCHLOROthiazide [Hydrochlorothiazide] 25 mg PO DAILY 08/23/19 [History] Warfarin [Coumadin] 2.5 mg PO DAILY 11/13/19 [History] Furosemide [Lasix] 40 mg PO DAILY #30 tablet 11/24/19 [Rx] Potassium Chloride [Klor-Con 10] 20 meq PO DAILY #30 tab.er 11/24/19 [Rx] Menthol/Methyl Salicylate [Icy Hot] 85 gm TOP QID PRN 11/27/19 [History] Patient Handouts: Heart Failure, [id number], Coronavirus Information 01/02/20 Referrals: Umberto Weeks MD [Primary Care Provider] - - Discharge Summary/Plan Comment DC Time >30 min.: Yes - Patient Data Vitals - Most Recent: Last Vital Signs Temp 36.8 C 01/31/20 07:49 Pulse 77 01/31/20 08:46 Resp 20 01/31/20 07:49 BP 152/65 H 01/31/20 08:46 Pulse Ox 91 L 01/31/20 07:49 Weight - Most Recent: 64.212 kg I&O - Last 24 hours: Intake & Output 01/30/20 01/31/20 01/31/20 22:59 06:59 14:59 Intake Total 720 480 Output Total 950 750 Balance -230 -750 480 Lab Results - Last 24 hrs: Laboratory Results - last 24 hr 01/30/20 01/30/20 01/30/20 Range/Units 12:11 17:12 20:51 WBC (5.0-10.0) 10^3/uL RBC (4.2-5.4) 10^6/uL Hgb (12.0-16.0) g/dL Hct (37.0-47.0) % MCV (80-100) fL MCH (27.0-34.0) pg MCHC (33.0-35.0) g/dL Plt Count (150-450) 10^3/uL Neut % (Auto) (42.2-75.2) % Lymph % (Auto) (20.5-50.1) % [place] % (Auto) (2-8) % Eos % (Auto) (1.0-3.0) % Baso % (Auto) (0.0-1.0) % PT (9.0-12.0) SEC INR (0.9-1.2) Sodium (136-145) mmol/L Potassium (3.5-5.1) mmol/L Chloride (98-107) mmol/L Carbon Dioxide (21-32) mmol/L Anion Gap (7-13) mEq/L BUN (7-18) mg/dL Creatinine (0.55-1.02) mg/dL Est Cr Clr Drug Dosing mL/min Estimated GFR (MDRD) Glucose (74-99) mg/dL POC Glucose 263 H 180 H 185 H (83-110) mg/dl Calcium (8.5-10.1) mg/dL 01/31/20 01/31/20 01/31/20 Range/Units 06:15 06:15 06:15 WBC 9.2 (5.0-10.0) 10^3/uL RBC 4.45 (4.2-5.4) 10^6/uL Hgb 10.7 L (12.0-16.0) g/dL Hct 33.2 L (37.0-47.0) % MCV 74.6 L (80-100) fL MCH 24.0 L (27.0-34.0) pg MCHC 32.2 L (33.0-35.0) g/dL Plt Count 273 (150-450) 10^3/uL Neut % (Auto) 58.9 (42.2-75.2) % Lymph % (Auto) 19.3 L (20.5-50.1) % [place] % (Auto) 8.1 H (2-8) % Eos % (Auto) 12.9 H (1.0-3.0) % Baso % (Auto) 0.8 (0.0-1.0) % PT 16.4 H D (9.0-12.0) SEC INR 1.7 H (0.9-1.2) Sodium 139 (136-145) mmol/L Potassium 3.9 (3.5-5.1) mmol/L Chloride 96 L (98-107) mmol/L Carbon Dioxide 35 H (21-32) mmol/L Anion Gap 11.9 (7-13) mEq/L BUN 35 H (7-18) mg/dL Creatinine 1.36 H (0.55-1.02) mg/dL Est Cr Clr Drug Dosing 25.73 mL/min Estimated GFR (MDRD) 37 Glucose 183 H (74-99) mg/dL POC Glucose (83-110) mg/dl Calcium 9.9 (8.5-10.1) mg/dL 01/31/20 Range/Units 08:38 WBC (5.0-10.0) 10^3/uL RBC (4.2-5.4) 10^6/uL Hgb (12.0-16.0) g/dL Hct (37.0-47.0) % MCV (80-100) fL MCH (27.0-34.0) pg MCHC (33.0-35.0) g/dL Plt Count (150-450) 10^3/uL Neut % (Auto) (42.2-75.2) % Lymph % (Auto) (20.5-50.1) % [place] % (Auto) (2-8) % Eos % (Auto) (1.0-3.0) % Baso % (Auto) (0.0-1.0) % PT (9.0-12.0) SEC INR (0.9-1.2) Sodium (136-145) mmol/L Potassium (3.5-5.1) mmol/L Chloride (98-107) mmol/L Carbon Dioxide (21-32) mmol/L Anion Gap (7-13) mEq/L BUN (7-18) mg/dL Creatinine (0.55-1.02) mg/dL Est Cr Clr Drug Dosing mL/min Estimated GFR (MDRD) Glucose (74-99) mg/dL POC Glucose 242 H (83-110) mg/dl Calcium (8.5-10.1) mg/dL MICHAEL Results - Last 24 hrs: Microbiology 01/29/20 16:44 Urine Culture - Final Urine, Catheterized NO GROWTH AFTER 2 DAYS 01/29/20 15:22 Aerobic Blood Culture - Preliminary Blood NO GROWTH AFTER 1 DAY Anaerobic Blood Culture - Preliminary NO GROWTH AFTER 1 DAY Med Orders - Current: Current Medications Acetaminophen (Tylenol) 650 mg PO Q6H PRN PRN Reason: Pain/Fever Last Admin: 01/30/20 21:03 Dose: 650 mg Albuterol (Proventil Hfa) 0 gm INH Q4H PRN PRN Reason: Wheezing Albuterol/Ipratropium (Duoneb 3.0-0.5 Mg/3 Ml) 3 ml INH Q4H PRN PRN Reason: Wheezing Amlodipine Besylate (Norvasc) 10 mg PO BEDTIME [facility] Last Admin: 01/30/20 21:06 Dose: 10 mg Aspirin (Halfprin) 81 mg PO DAILY [facility] Last Admin: 01/31/20 08:46 Dose: 81 mg Clonidine HCl (Catapres) 0.2 mg PO BID [facility] Last Admin: 01/31/20 08:45 Dose: 0.2 mg Fenofibrate (Tricor) 145 mg PO BEDTIME [facility] Last Admin: 01/30/20 21:06 Dose: 145 mg Ferrous Sulfate (Ferrous Sulfate) 325 mg PO PCDINNER [facility] Last Admin: 01/30/20 20:15 Dose: Not Given Hydrochlorothiazide (Hydrochlorothiazide) 25 mg PO DAILY [facility] Last Admin: 01/31/20 08:46 Dose: 25 mg Insulin Human Lispro (Humalog) 0 unit SUBCUT WITHMEALSANDBED [facility]; Protocol Last Admin: 01/31/20 08:47 Dose: 2 units Melatonin (Melatonin) 6 mg PO BEDTIME [facility] Last Admin: 01/30/20 21:07 Dose: 6 mg Metoprolol Succinate (Toprol Xl) 100 mg PO DAILY [facility] Last Admin: 01/31/20 08:46 Dose: 100 mg Ondansetron HCl (Zofran) 4 mg IVPUSH Q6H PRN PRN Reason: Nausea/Vomiting Pantoprazole Sodium (Protonix) 40 mg PO ACBREAKFAST PRN PRN Reason: reflux Sodium Chloride (Saline Flush) 10 ml FLUSH ASDIRECTED PRN PRN Reason: Keep Vein Open Warfarin Sodium (Pharmacy To Dose - Warfarin) 1 dose .XX ASDIRECTED [facility] Warfarin Sodium (Coumadin) 1 mg PO ONETIME ONE Stop: 01/31/20 14:01 Discontinued Medications Albuterol (Proventil Hfa) 0 gm INH Q4H PRN PRN Reason: Wheezing Albuterol/Ipratropium (Duoneb 3.0-0.5 Mg/3 Ml) 3 ml INH Q4H PRN PRN Reason: Wheezing Amlodipine Besylate (Norvasc) 10 mg PO BEDTIME [facility] Last Admin: 01/29/20 22:09 Dose: 10 mg Amlodipine Besylate (Norvasc) Confirm Administered Dose 10 mg .ROUTE .STK-MED ONE Stop: 01/29/20 21:29 Last Admin: 01/29/20 22:56 Dose: Not Given Aspirin (Halfprin) 81 mg PO DAILY [facility] Last Admin: 01/30/20 10:48 Dose: Not Given Clonidine HCl (Catapres) 0.2 mg PO BID [facility] Last Admin: 01/30/20 09:38 Dose: Not Given Clonidine HCl (Catapres) Confirm Administered Dose 0.2 mg .ROUTE .STK-MED ONE Stop: 01/29/20 21:29 Last Admin: 01/29/20 22:56 Dose: Not Given Ferrous Sulfate (Ferrous Sulfate) 325 mg PO PCDINNER [facility] Last Admin: 01/29/20 18:18 Dose: 325 mg Furosemide (Lasix) 40 mg IVPUSH NOW ONE Stop: 01/29/20 16:25 Last Admin: 01/29/20 16:36 Dose: 40 mg Furosemide (Lasix) 60 mg IVPUSH BID [facility] Last Admin: 01/29/20 18:03 Dose: Not Given Furosemide (Lasix) 60 mg PO BID [facility] Furosemide (Lasix) 60 mg PO BID [facility] Furosemide (Lasix) 60 mg PO BIDDIURETIC [facility] Last Admin: 01/31/20 08:44 Dose: 60 mg Furosemide (Lasix) 60 mg PO BID [facility] Last Admin: 01/30/20 10:48 Dose: Not Given Hydrochlorothiazide (Hydrochlorothiazide) 25 mg PO DAILY [facility] Last Admin: 01/30/20 10:48 Dose: Not Given Insulin Human Lispro (Humalog) 0 unit SUBCUT WITHMEALSANDBED [facility]; Protocol Last Admin: 01/30/20 20:59 Dose: 1 units Melatonin (Melatonin) 6 mg PO BEDTIME [facility] Last Admin: 01/31/20 06:47 Dose: Not Given Metoprolol Succinate (Toprol Xl) 100 mg PO DAILY [facility] Last Admin: 01/30/20 10:48 Dose: Not Given Nitrofurantoin Macrocrystals (Macrobid) 100 mg PO DAILY [facility] Last Admin: 01/30/20 10:21 Dose: Not Given Non-Formulary Medication (Fenofibrate [Fenofibrate]) 160 mg PO BEDTIME [facility] No Warfarin Dose (Needed) 0 each PO ONETIME ONE Stop: 01/29/20 18:31 Last Admin: 01/29/20 18:19 Dose: Not Given Non-Formulary Medication (Fenofibrate [Fenofibrate]) 160 mg PO BEDTIME [facility] Non-Formulary Medication (Fenofibrate [Fenofibrate]) 160 mg PO BEDTIME [facility] Last Admin: 01/30/20 10:47 Dose: Not Given Ondansetron HCl (Zofran) 4 mg IVPUSH Q6H PRN PRN Reason: Nausea/Vomiting Pantoprazole Sodium (Protonix) 40 mg PO ACBREAKFAST PRN PRN Reason: reflux Potassium Chloride (Klor-Con 10) 40 meq PO ONETIME ONE Stop: 01/29/20 16:44 Last Admin: 01/29/20 17:57 Dose: 40 meq Potassium Chloride (Klor-Con 10) 20 meq PO ONETIME ONE Stop: 01/29/20 17:53 Last Admin: 01/29/20 18:04 Dose: 20 meq Potassium Chloride (Klor-Con 10) 40 meq PO ONETIME ONE Stop: 01/30/20 09:04 Last Admin: 01/30/20 09:58 Dose: 40 meq Sodium Chloride (Saline Flush) 10 ml FLUSH ASDIRECTED PRN PRN Reason: Keep Vein Open Last Admin: 01/30/20 00:36 Dose: 10 ml Warfarin Sodium (Coumadin) 2.5 mg PO DAILY [facility] Warfarin Sodium (Pharmacy To Dose - Warfarin) 1 dose .XX ASDIRECTED [facility] Warfarin Sodium (Coumadin) 2.5 mg PO DAILY [facility] Warfarin Sodium (Pharmacy To Dose - Warfarin) 1 dose .XX ASDIRECTED [facility] Warfarin Sodium (Coumadin) 2.5 mg PO DAILY [facility] Last Admin: 01/30/20 10:47 Dose: Not Given Warfarin Sodium (Coumadin) 2.5 mg PO DAILY [facility] Last Admin: 01/30/20 10:48 Dose: Not Given Warfarin Sodium (Pharmacy To Dose - Warfarin) 1 dose .XX ASDIRECTED [facility] Warfarin Sodium (Coumadin) 1 mg PO ONETIME ONE Stop: 01/30/20 14:01 Last Admin: 01/30/20 13:06 Dose: 1 mg - Exam General: Reports: Alert, Oriented Lungs: Reports: Clear to Auscultation, Normal Respiratory Effort Cardiovascular: Reports: Regular Rate, Regular Rhythm GI/Abdominal Exam: Normal Bowel Sounds, Soft, Non-Tender Extremities: Normal Inspection, No Pedal Edema Skin: Reports: Warm, Dry, Intact Psy/Mental Status: Reports: Alert, Normal Affect, Normal Mood
[2020-01-31 14:15] VITALS: BP 135/60; PULSE 60
[2020-01-31] MEDS: Ferrous Sulfate 325 MG Tab PO SCH ×2 (17:17→18:10)
== END 2020-01-31 18:30 | disposition home or self-care (01) | DRG 292 ==
LOC: DL.ED 14:36 → UNDOADMIN 16:33 → DL.MS 16:33
PROVIDERS: ADMIT Internal Medicine; ATTEND Internal Medicine
PROC: 8E0ZXY6 Isolation (ICD-10-PCS; principal; 2020-01-29)
DX: I11.0 Hypertensive heart disease with heart failure (principal); I50.9 Heart failure, unspecified; N39.0 Urinary tract infection, site not specified; H44.9 Unspecified disorder of globe; I48.91 Unspecified atrial fibrillation; R53.1 Weakness; H54.8 Legal blindness, as defined in USA; I50.33 Acute on chronic diastolic (congestive) heart failure; Z86.718 Personal history of other venous thrombosis and embolism; E78.00 Pure hypercholesterolemia, unspecified; J44.9 Chronic obstructive pulmonary disease, unspecified; E11.9 Type 2 diabetes mellitus without complications; R33.9 Retention of urine, unspecified; R32 Unspecified urinary incontinence; K59.09 Other constipation; J32.9 Chronic sinusitis, unspecified; H54.7 Unspecified visual loss; K21.9 Gastro-esophageal reflux disease without esophagitis; E87.6 Hypokalemia; G89.29 Other chronic pain; Z88.6 Allergy status to analgesic agent; Z79.01 Long term (current) use of anticoagulants; Z79.84 Long term (current) use of oral hypoglycemic drugs; Z79.82 Long term (current) use of aspirin; M54.9 Dorsalgia, unspecified; M19.90 Unspecified osteoarthritis, unspecified site; Z86.73 Personal history of transient ischemic attack (TIA), and cerebral infarction without residual deficits; Z95.0 Presence of cardiac pacemaker; Z79.899 Other long term (current) drug therapy; Z88.1 Allergy status to other antibiotic agents; Z88.8 Allergy status to other drugs, medicaments and biological substances; Z86.711 Personal history of pulmonary embolism; Z98.890 Other specified postprocedural states
CPT/HCPCS: 36415; 51702; 71250; 80048; 80053; 81001; 82962; 83605; 83880; 84484; 85025; 85610; 87040; 87086; 87804; 93005; 99285-25; A9270-GY; J1940; J2405; U0002

== ENCOUNTER 2020-03-08 23:56 | Inpatient (IN) | payer MEDICARE, BC, OTHER ==
--- NOTE | 2020-03-09 00:16 | EDM.PDOC ---
ED HPI GENERAL MEDICAL PROBLEM - General Chief Complaint: Respiratory Problem Stated Complaint: AMBULANCE Time Seen by Provider: 03/09/20 00:13 Source of Information: Reports: Patient, EMS History Limitations: Reports: No Limitations - History of Present Illness INITIAL COMMENTS - FREE TEXT/NARRATIVE: onset SOB tonight EMS gave neb + O2 and pt improved. initial sat @ 88% now 94%. does not use home O2. denies CP per-se. Right Shoulder Pain Score (Numeric/FACES): 7 - Related Data Allergies Allergy/AdvReac Type Severity Reaction Status Date / Time amoxicillin Allergy Hives Verified 03/09/20 02:03 ezetimibe Allergy Cannot Verified 03/09/20 02:03 Remember morphine Allergy Confusion Verified 03/09/20 02:03 moxifloxacin Allergy Cannot Verified 03/09/20 02:03 Remember naproxen [From Aleve] Allergy Cannot Verified 03/09/20 02:03 Remember Agtnvlm-[id number]-Vqo Reductase Allergy Muscle Verified 03/09/20 02:03 Inhibitor Aches sulindac Allergy Cannot Verified 03/09/20 02:03 Remember Tetracyclines Allergy Cannot Verified 03/09/20 02:03 Remember Home Meds: Home Meds Fenofibrate 160 mg PO BEDTIME 04/20/15 [History] Metoprolol Succinate [Toprol XL] 100 mg PO DAILY 04/20/15 [History] metFORMIN [Glucophage] 1,000 mg PO BIDMEALS 04/20/15 [History] Pantoprazole [ProTONIX] 40 mg PO DAILY 03/24/16 [History] cloNIDine [Catapres] 0.2 mg PO BID 02/10/17 [History] Albuterol [Proventil HFA] 2 puff INH Q4H PRN 08/23/19 [History] Albuterol/Ipratropium [DuoNeb 3.0-0.5 MG/3 ML] 3 ml INH Q4H PRN 08/23/19 [ History] Aspirin [Adult Low Dose Aspirin EC] 81 mg PO DAILY 08/23/19 [History] Ciclopirox/Urea/Camph/Men/Euc [Ciclopirox 8% Treatment Kit] 34.6 ml TP DAILY 03/06 [History] Ferrous Sulfate 325 mg PO .SUPPER 08/23/19 [History] Folic Acid 1 mg PO DAILY 08/23/19 [History] Magnesium Oxide [Magnesium] 1 tab PO DAILY 08/23/19 [History] [place]-3 Acid Ethyl Esters [Lovaza] 2 gm PO BID 08/23/19 [History] Propylene Glycol/Peg 400 [Systane 0.3-0.4% Eye Drops] 1 drop EYEBOTH BID [History] hydroCHLOROthiazide [Hydrochlorothiazide] 25 mg PO DAILY 08/23/19 [History] Warfarin [Coumadin] 2.5 mg PO DAILY 11/13/19 [History] Menthol/Methyl Salicylate [Icy Hot] 85 gm TOP QID PRN 11/27/19 [History] Calcium Carbonate/Vitamin D3 [Calcium 250+D] 1 each PO DAILY 03/09/20 [History] Cyanocobalamin (Vitamin B-12) [Vitamin B-12] 1,000 mcg PO DAILY 03/09/20 [ History] Docusate Sodium [Colace] 100 mg PO DAILY 03/09/20 [History] Furosemide [Lasix] 2 tab PO DAILY 03/09/20 [History] Potassium Chloride [Klor-Con 10] 10 meq PO DAILY 03/09/20 [History] oxyCODONE HCl/Acetaminophen [Oxycodone-Acetaminophen 5-325] 1 tab PO Q6H PRN [History] Past Medical History - Past Health History Medical/Surgical History: Denies Medical/Surgical History HEENT History: Reports: Impaired Vision Other HEENT History: wears glasses, is legally blind Cardiovascular History: Reports: Afib, Blood Clots/VTE/DVT, Heart Failure, High Cholesterol, Hypertension, Pacemaker Other Cardiovascular History: pauses in heart beat Respiratory History: Reports: COPD, PE, SOB, Other (See Below) Other Respiratory History: recent intubation Gastrointestinal History: Reports: GERD Other Gastrointestinal History: prolapsed rectum Genitourinary History: Reports: Retention, Urinary, Urinary Incontinence, UTI, Recurrent Other Genitourinary History: wears protection [employer] History: Reports: Musculoskeletal History: Reports: Back Pain, Chronic, Osteoarthritis, Other ( See Below) Other Musculoskeletal History: degenerative disc disease Neurological History: Reports: CVA, Headaches, Chronic, Other (See Below) Other Neuro History: cva in 2010 Psychiatric History: Reports: None Endocrine/Metabolic History: Reports: Diabetes, Type II Hematologic History: Reports: None Immunologic History: Reports: None Oncologic (Cancer) History: Reports: None Dermatologic History: Reports: None - Infectious Disease History Infectious Disease History: Reports: Chicken Pox, Measles - Past Surgical History Head Surgeries/Procedures: Reports: None HEENT Surgical History: Reports: None Cardiovascular Surgical History: Reports: Pacer Respiratory Surgical History: Reports: None GI Surgical History: Reports: Other (See Below) Other GI Surgeries/Procedures: Bowel resection Female Surgical History: Reports: Other (See Below) Other Female Surgeries/Procedures: Bladder surgery Musculoskeletal Surgical History: Reports: None Social & Family History - Family History Family Medical History: Noncontributory - Caffeine Use Caffeine Use: Reports: Coffee - Living Situation & Occupation Living situation: Reports: , Alone Occupation: Retired ED ROS GENERAL - Review of Systems Review Of Systems: Comprehensive ROS is negative, except as noted in HPI. ED EXAM, GENERAL - Physical Exam Exam: See Below Exam Limited By: No Limitations General Appearance: Alert, WD/WN, Mild Distress, Other (discomfort) Ears: Hearing Grossly Normal Throat/Mouth: Normal Voice, No Airway Compromise Head: Atraumatic Neck: Non-Tender, Full Range of Motion Respiratory/Chest: No Accessory Muscle Use, Rales, Rhonchi Cardiovascular: Regular Rate, Rhythm GI/Abdominal: Soft, Non-Tender Extremities: Pedal Edema, Other (1+ bilateral) Neurological: Alert, Oriented, Normal Cognition, No Motor/Sensory Deficits Psychiatric: Flat Affect Skin Exam: Warm, Dry, Normal Color Lymphatic: No Adenopathy Course - Vital Signs Last Recorded V/S: Last Vital Signs Temp 36.4 C 03/09/20 00:14 Pulse 100 03/09/20 00:14 Resp 28 H 03/09/20 00:14 BP 164/57 H 03/09/20 00:14 Pulse Ox 98 03/09/20 00:14 - Orders/Labs/Meds Orders: Active Orders 24 hr Category Date Time Status EKG 12 Lead [EKG Documentation Completion] [RC] STAT Care 03/09/20 00:14 Active Chest 1V Frontal [CR] Urgent Exams 03/09/20 00:12 Taken CULTURE BLOOD [BC] Stat Lab 03/09/20 00:31 Received CULTURE URINE [RM] Stat Lab 03/09/20 01:53 Received Sodium Chloride 0.9% [Normal Saline] 1,000 ml Med 03/09/20 04:30 Ordered IV ASDIRECTED Labs: Laboratory Tests 03/09/20 03/09/20 03/09/20 Range/Units 00:31 00:31 00:31 WBC 15.8 H (5.0-10.0) 10^3/uL RBC 4.45 (4.2-5.4) 10^6/uL Hgb 10.8 L (12.0-16.0) g/dL Hct 33.8 L (37.0-47.0) % MCV 76.0 L (80-100) fL MCH 24.3 L (27.0-34.0) pg MCHC 32.0 L (33.0-35.0) g/dL Plt Count 286 (150-450) 10^3/uL Neut % (Auto) 88.4 H (42.2-75.2) % Lymph % (Auto) 6.9 L (20.5-50.1) % [place] % (Auto) 3.2 (2-8) % Eos % (Auto) 1.3 (1.0-3.0) % Baso % (Auto) 0.2 (0.0-1.0) % PT (9.0-12.0) SEC INR (0.9-1.2) D-Dimer, Quantitative (0-400) ng/mL Sodium 138 (136-145) mmol/L Potassium 3.4 L (3.5-5.1) mmol/L Chloride 98 (98-107) mmol/L Carbon Dioxide 27 (21-32) mmol/L Anion Gap 16.4 H (7-13) mEq/L BUN 49 H (7-18) mg/dL Creatinine 1.54 H (0.55-1.02) mg/dL Est Cr Clr Drug Dosing TNP Estimated GFR (MDRD) 32 BUN/Creatinine Ratio 31.8 (No establ ref range) Glucose 210 H (74-99) mg/dL Lactic Acid 3.7 H* (0.4-2.0) mmol/L Calcium 9.9 (8.5-10.1) mg/dL Total Bilirubin 0.4 (0.2-1.0) mg/dL AST 44 H (15-37) U/L ALT 39 (14-59) U/L Alkaline Phosphatase 42 L (46-116) U/L Troponin I < 0.017 (0.000-0.056) ng/mL B-Natriuretic Peptide 388 H (0-100) pg/ml Total Protein 7.2 (6.4-8.2) g/dL Albumin 3.6 (3.4-5.0) g/dL Globulin 3.6 Albumin/Globulin Ratio 1.0 Urine Color (YELLOW) Urine Appearance (CLEAR) Urine pH (5.0-9.0) Ur Specific [place] (1.005-1.030) Urine Protein (NEGATIVE) Urine Glucose (UA) (NEGATIVE) Urine Ketones (NEGATIVE) Urine Occult Blood (NEGATIVE) Urine Nitrite (NEGATIVE) Urine Bilirubin (NEGATIVE) Urine Urobilinogen (0.2-1.0) mg/dL Ur Leukocyte Esterase (NEGATIVE) Urine RBC /HPF Urine WBC (0-5/HPF) /HPF Ur Epithelial Cells (NOT SEEN) /HPF Amorphous Sediment (NOT SEEN) /HPF Urine Bacteria (0-FEW/HPF) /HPF Urine Mucus (NOT SEEN) /LPF SARS-CoV-2 RNA (RT-PCR) (NEGATIVE) 03/09/20 03/09/20 03/09/20 Range/Units 00:31 00:31 01:53 WBC (5.0-10.0) 10^3/uL RBC (4.2-5.4) 10^6/uL Hgb (12.0-16.0) g/dL Hct (37.0-47.0) % MCV (80-100) fL MCH (27.0-34.0) pg MCHC (33.0-35.0) g/dL Plt Count (150-450) 10^3/uL Neut % (Auto) (42.2-75.2) % Lymph % (Auto) (20.5-50.1) % [place] % (Auto) (2-8) % Eos % (Auto) (1.0-3.0) % Baso % (Auto) (0.0-1.0) % PT 29.2 H D (9.0-12.0) SEC INR 3.1 H (0.9-1.2) D-Dimer, Quantitative 823 H (0-400) ng/mL Sodium (136-145) mmol/L Potassium (3.5-5.1) mmol/L Chloride (98-107) mmol/L Carbon Dioxide (21-32) mmol/L Anion Gap (7-13) mEq/L BUN (7-18) mg/dL Creatinine (0.55-1.02) mg/dL Est Cr Clr Drug Dosing Estimated GFR (MDRD) BUN/Creatinine Ratio (No establ ref range) Glucose (74-99) mg/dL Lactic Acid (0.4-2.0) mmol/L Calcium (8.5-10.1) mg/dL Total Bilirubin (0.2-1.0) mg/dL AST (15-37) U/L ALT (14-59) U/L Alkaline Phosphatase (46-116) U/L Troponin I (0.000-0.056) ng/mL B-Natriuretic Peptide (0-100) pg/ml Total Protein (6.4-8.2) g/dL Albumin (3.4-5.0) g/dL Globulin Albumin/Globulin Ratio Urine Color Yellow (YELLOW) Urine Appearance Turbid (CLEAR) Urine pH 5.5 (5.0-9.0) Ur Specific [place] 1.015 (1.005-1.030) Urine Protein 100 H (NEGATIVE) Urine Glucose (UA) 100 H (NEGATIVE) Urine Ketones Negative (NEGATIVE) Urine Occult Blood Small H (NEGATIVE) Urine Nitrite Negative (NEGATIVE) Urine Bilirubin Negative (NEGATIVE) Urine Urobilinogen 0.2 (0.2-1.0) mg/dL Ur Leukocyte Esterase Small H (NEGATIVE) Urine RBC 5-10 H /HPF Urine WBC 75-100 H (0-5/HPF) /HPF Ur Epithelial Cells Rare (NOT SEEN) /HPF Amorphous Sediment Moderate H (NOT SEEN) /HPF Urine Bacteria Few (0-FEW/HPF) /HPF Urine Mucus Not seen (NOT SEEN) /LPF SARS-CoV-2 RNA (RT-PCR) (NEGATIVE) 03/09/20 Range/Units 02:25 WBC (5.0-10.0) 10^3/uL RBC (4.2-5.4) 10^6/uL Hgb (12.0-16.0) g/dL Hct (37.0-47.0) % MCV (80-100) fL MCH (27.0-34.0) pg MCHC (33.0-35.0) g/dL Plt Count (150-450) 10^3/uL Neut % (Auto) (42.2-75.2) % Lymph % (Auto) (20.5-50.1) % [place] % (Auto) (2-8) % Eos % (Auto) (1.0-3.0) % Baso % (Auto) (0.0-1.0) % PT (9.0-12.0) SEC INR (0.9-1.2) D-Dimer, Quantitative (0-400) ng/mL Sodium (136-145) mmol/L Potassium (3.5-5.1) mmol/L Chloride (98-107) mmol/L Carbon Dioxide (21-32) mmol/L Anion Gap (7-13) mEq/L BUN (7-18) mg/dL Creatinine (0.55-1.02) mg/dL Est Cr Clr Drug Dosing Estimated GFR (MDRD) BUN/Creatinine Ratio (No establ ref range) Glucose (74-99) mg/dL Lactic Acid (0.4-2.0) mmol/L Calcium (8.5-10.1) mg/dL Total Bilirubin (0.2-1.0) mg/dL AST (15-37) U/L ALT (14-59) U/L Alkaline Phosphatase (46-116) U/L Troponin I (0.000-0.056) ng/mL B-Natriuretic Peptide (0-100) pg/ml Total Protein (6.4-8.2) g/dL Albumin (3.4-5.0) g/dL Globulin Albumin/Globulin Ratio Urine Color (YELLOW) Urine Appearance (CLEAR) Urine pH (5.0-9.0) Ur Specific [place] (1.005-1.030) Urine Protein (NEGATIVE) Urine Glucose (UA) (NEGATIVE) Urine Ketones (NEGATIVE) Urine Occult Blood (NEGATIVE) Urine Nitrite (NEGATIVE) Urine Bilirubin (NEGATIVE) Urine Urobilinogen (0.2-1.0) mg/dL Ur Leukocyte Esterase (NEGATIVE) Urine RBC /HPF Urine WBC (0-5/HPF) /HPF Ur Epithelial Cells (NOT SEEN) /HPF Amorphous Sediment (NOT SEEN) /HPF Urine Bacteria (0-FEW/HPF) /HPF Urine Mucus (NOT SEEN) /LPF SARS-CoV-2 RNA (RT-PCR) Negative (NEGATIVE) - Re-Assessments/Exams Free Text/Narrative Re-Assessment/Exam: 03/09/20 04:23 case discussed with Herlinda ( pt's daughter ) about elevated d dimer & creatinine requiring V/Q scan in [facility]. Herlinda states pt is DNR/DNI and already taking warfarin blood thinner and prefer pt to be treated here with ABX for her UTI. situation discussed with Dr Montiel who kindly admitted pt. Departure - Departure Time of Disposition: 04:26 Disposition: Admitted As Inpatient 67 Condition: Good Clinical Impression: Elevated d-dimer, COPD exacerbation, Anticoagulated on Coumadin UTI (urinary tract infection) Qualifiers: Urinary tract infection type: site unspecified Hematuria presence: with hematuria Qualified Code(s): N39.0 - Urinary tract infection, site not specified ; R31.9 - Hematuria, unspecified Acute exacerbation of CHF (congestive heart failure) Qualifiers: Heart failure type: unspecified Qualified Code(s): I50.9 - Heart failure, unspecified - Discharge Information Forms: ED Department Discharge Sepsis Event Note - Focused Exam Vital Signs: Vital Signs Temp Pulse Resp BP Pulse Ox 03/09/20 00:14 36.4 C 100 28 H 164/57 H 98 Date Exam was Performed: 03/09/20 Time Exam was Performed: 04: - My Orders Last 24 Hours: My Active Orders 03/09/20 00:12 Chest 1V Frontal [CR] Urgent 03/09/20 00:14 EKG 12 Lead [EKG Documentation Completion] [RC] STAT 03/09/20 00:31 CULTURE BLOOD [BC] Stat 03/09/20 01:53 CULTURE URINE [RM] Stat 03/09/20 04:30 Sodium Chloride 0.9% [Normal Saline] 1,000 ml IV ASDIRECTED - Assessment/Plan Last 24 Hours: My Active Orders 03/09/20 00:12 Chest 1V Frontal [CR] Urgent 03/09/20 00:14 EKG 12 Lead [EKG Documentation Completion] [RC] STAT 03/09/20 00:31 CULTURE BLOOD [BC] Stat 03/09/20 01:53 CULTURE URINE [RM] Stat 03/09/20 04:30 Sodium Chloride 0.9% [Normal Saline] 1,000 ml IV ASDIRECTED
[2020-03-09 01:03] LABS: ANION GAP 16.4 mEq/L (7-13); CHLORIDE,CL 98 mmol/L (98-107); SODIUM,NA 138 mmol/L (136-145)
[2020-03-09] MEDS ORDERED: Sodium Chloride 0.9% 1,000 ML IV SCH (04:30)
[2020-03-09] MEDS ORDERED: Albuterol/Ipratropium 3.0-0.5 MG/3 ML Neb Soln INH PRN (05:11)
[2020-03-09] MEDS ORDERED: Menthol/Methyl Salicylate 85 GM Tube TOP PRN (05:11)
[2020-03-09] MEDS ORDERED: Albuterol 6.7 GM Inhaler INH PRN (05:11)
[2020-03-09] MEDS ORDERED: Ondansetron 4 MG/2 ML SDV IVPUSH PRN (05:14)
[2020-03-09] MEDS ORDERED: Ondansetron 4 MG Tab.DIS PO PRN (05:14)
[2020-03-09] MEDS ORDERED: Piperacillin/Tazobactam 3.375 GM in Sodium Chloride 0.9% 100 ML IV SCH (05:15)
[2020-03-09] MEDS ORDERED: Glucagon,Human Recombinant 1 MG Vial IM PRN (05:27)
[2020-03-09] MEDS ORDERED: 50% Dextrose in Water 50 ML Syringe IVPUSH PRN (05:27)
--- NOTE | 2020-03-09 05:43 | PCM.HP ---
H&P History of Present Illness - General Date of Service: 03/09/20 Admit Problem/Dx: Admission Diagnosis/Problem Admission Diagnosis/Problem Sepsis Source of Information: Patient, Old Records, Provider - History of Present Illness Initial Comments - Free Text/Narative: Patient is an 89-year-old female with medical history significant for PE on chronic anticoagulation, CVA, hypertension, sick sinus syndrome status post pacemaker placement, dyslipidemia, diabetes, and diastolic heart failure who presented to the ED with complaints of shortness of breath that started tonight. According to the ED provider, EMS reported that patient's O2 saturation was in the 80s on arrival to the scene. She was given nebulized treatment and O2 saturation improved. Patient reports that she had gone to the bathroom and when she returned she could no catch her breath. States that symptoms persisted so she called EMS. Denies any chest pain, neck pain, jaw pain, diaphoresis, lightheadedness, cough, or any new symptoms. Reports that she has right shoulder pain at baseline for which she uses cold compresses. States the right shoulder was swollen last night. Has been seen by a provider for this. In the ED, troponin was negative. Patient had lactic acid of 3.7. Anion gap was 16.4. Count was 15.8. She was tachycardic and tachypneic. D-dimer was requested and came back elevated at 823. Patient's neutrophil count was 88.4 with lymphocyte count of 6.9. COVID-[address] Fry discussed patient's elevated d-dimer with patient's daughter in the ED. He indicates that he explained to them that patient needs to go to hospital for VQ scan due to elevated creatinine levels making CT PE protocol contraindicated. Family declined transfer to [facility] and that they want patient to be DNR/DNI with no heroic measures. Right Shoulder Pain Score (Numeric/FACES): 7 - Related Data Allergies/Adverse Reactions: Allergies Allergy/AdvReac Type Severity Reaction Status Date / Time amoxicillin Allergy Hives Verified 03/09/20 05:07 ezetimibe Allergy Cannot Verified 03/09/20 05:07 Remember morphine Allergy Confusion Verified 03/09/20 05:07 moxifloxacin Allergy Cannot Verified 03/09/20 05:07 Remember naproxen [From Aleve] Allergy Cannot Verified 03/09/20 05:07 Remember Xctugwf-Ewf-Ovv Reductase Allergy Muscle Verified 03/09/20 05:07 Inhibitor Aches sulindac Allergy Cannot Verified 03/09/20 05:07 Remember Tetracyclines Allergy Cannot Verified 03/09/20 05:07 Remember Home Medications: Home Meds Fenofibrate 160 mg PO BEDTIME 04/20/15 [History] Metoprolol Succinate [Toprol XL] 100 mg PO DAILY 04/20/15 [History] metFORMIN [Glucophage] 1,000 mg PO BIDMEALS 04/20/15 [History] Pantoprazole [ProTONIX] 40 mg PO DAILY 03/24/16 [History] cloNIDine [Catapres] 0.2 mg PO BID 02/10/17 [History] Albuterol [Proventil HFA] 2 puff INH Q4H PRN 08/23/19 [History] Albuterol/Ipratropium [DuoNeb 3.0-0.5 MG/3 ML] 3 ml INH Q4H PRN 08/23/19 [ History] Aspirin [Adult Low Dose Aspirin EC] 81 mg PO DAILY 08/23/19 [History] Ciclopirox/Urea/Camph/Men/Euc [Ciclopirox 8% Treatment Kit] 34.6 ml TP DAILY 03/06 [History] Ferrous Sulfate 325 mg PO .SUPPER 08/23/19 [History] Folic Acid 1 mg PO DAILY 08/23/19 [History] Magnesium Oxide [Magnesium] 1 tab PO DAILY 08/23/19 [History] [place]-3 Acid Ethyl Esters [Lovaza] 2 gm PO BID 08/23/19 [History] Propylene Glycol/Peg 400 [Systane 0.3-0.4% Eye Drops] 1 drop EYEBOTH BID [History] hydroCHLOROthiazide [Hydrochlorothiazide] 25 mg PO DAILY 08/23/19 [History] Warfarin [Coumadin] 2.5 mg PO DAILY 11/13/19 [History] Menthol/Methyl Salicylate [Icy Hot] 85 gm TOP QID PRN 11/27/19 [History] Calcium Carbonate/Vitamin D3 [Calcium 250+D] 1 each PO DAILY 03/09/20 [History] Cyanocobalamin (Vitamin B-12) [Vitamin B-12] 1,000 mcg PO DAILY 03/09/20 [ History] Docusate Sodium [Colace] 100 mg PO DAILY 03/09/20 [History] Furosemide [Lasix] 2 tab PO DAILY 03/09/20 [History] Potassium Chloride [Klor-Con 10] 10 meq PO DAILY 03/09/20 [History] oxyCODONE HCl/Acetaminophen [Oxycodone-Acetaminophen 5-325] 1 tab PO Q6H PRN [History] Past Medical History - Past Health History Medical/Surgical History: Denies Medical/Surgical History HEENT History: Reports: Impaired Vision Other HEENT History: wears glasses, is legally blind Cardiovascular History: Reports: Afib, Blood Clots/VTE/DVT, Heart Failure, High Cholesterol, Hypertension, Pacemaker Other Cardiovascular History: pauses in heart beat Respiratory History: Reports: COPD, PE, SOB, Other (See Below) Other Respiratory History: recent intubation Gastrointestinal History: Reports: GERD Other Gastrointestinal History: prolapsed rectum Genitourinary History: Reports: Retention, Urinary, Urinary Incontinence, UTI, Recurrent Other Genitourinary History: wears protection [employer] History: Reports: Musculoskeletal History: Reports: Back Pain, Chronic, Osteoarthritis, Other ( See Below) Other Musculoskeletal History: degenerative disc disease Neurological History: Reports: CVA, Headaches, Chronic, Other (See Below) Other Neuro History: cva in 2010 Psychiatric History: Reports: None Endocrine/Metabolic History: Reports: Diabetes, Type II Hematologic History: Reports: None Immunologic History: Reports: None Oncologic (Cancer) History: Reports: None Dermatologic History: Reports: None - Infectious Disease History Infectious Disease History: Reports: Chicken Pox, Measles - Past Surgical History Head Surgeries/Procedures: Reports: None HEENT Surgical History: Reports: None Cardiovascular Surgical History: Reports: Pacer Respiratory Surgical History: Reports: None GI Surgical History: Reports: Other (See Below) Other GI Surgeries/Procedures: Bowel resection Female Surgical History: Reports: Other (See Below) Other Female Surgeries/Procedures: Bladder surgery Musculoskeletal Surgical History: Reports: None Social & Family History - Family History Family Medical History: Noncontributory - Tobacco Use Smoking Status *Q: Never Smoker Second Hand Smoke Exposure: No - Caffeine Use Caffeine Use: Reports: Coffee - Recreational Drug Use Recreational Drug Use: No - Living Situation & Occupation Living situation: Reports: , Alone Occupation: Retired H&P Review of Systems - Review of Systems: Review Of Systems: Comprehensive ROS is negative, except as noted in HPI. Exam - Exam Exam: See Below - Vital Signs Vital Signs: Last Vital Signs Temp 98.1 F 03/09/20 04:40 Pulse 78 03/09/20 04:40 Resp 18 03/09/20 04:40 BP 134/51 L 03/09/20 04:40 Pulse Ox 97 03/09/20 05:14 Weight: 150 lb - Exam Quality Assessment: Supplemental Oxygen (2L) General: Alert, Oriented HEENT: Conjunctiva Clear, EOMI Neck: Supple, Trachea Midline Lungs: Crackles (in bilatelateral lower lungs. ) Cardiovascular: Regular Rate, Regular Rhythm GI/Abdominal Exam: Normal Bowel Sounds, Soft, No Organomegaly, No Distention Extremities: No Pedal Edema, Joint Swelling (Right shoulder swelling and tenderness to palpation.) Skin: Warm, Dry, Intact Neurological: Normal Speech Neuro Extensive - Mental Status: Alert, Oriented x3, Normal Mood/Affect, Normal Cognition, Memory Intact Psychiatric: Alert, Normal Affect, Normal Mood - Patient Data Lab Results Last 24 hrs: Laboratory Results - last 24 hr 03/09/20 03/09/20 03/09/20 Range/Units 00:31 00:31 00:31 WBC 15.8 H (5.0-10.0) 10^3/uL RBC 4.45 (4.2-5.4) 10^6/uL Hgb 10.8 L (12.0-16.0) g/dL Hct 33.8 L (37.0-47.0) % MCV 76.0 L (80-100) fL MCH 24.3 L (27.0-34.0) pg MCHC 32.0 L (33.0-35.0) g/dL Plt Count 286 (150-450) 10^3/uL Neut % (Auto) 88.4 H (42.2-75.2) % Lymph % (Auto) 6.9 L (20.5-50.1) % [place] % (Auto) 3.2 (2-8) % Eos % (Auto) 1.3 (1.0-3.0) % Baso % (Auto) 0.2 (0.0-1.0) % PT (9.0-12.0) SEC INR (0.9-1.2) D-Dimer, Quantitative (0-400) ng/mL Sodium 138 (136-145) mmol/L Potassium 3.4 L (3.5-5.1) mmol/L Chloride 98 (98-107) mmol/L Carbon Dioxide 27 (21-32) mmol/L Anion Gap 16.4 H (7-13) mEq/L BUN 49 H (7-18) mg/dL Creatinine 1.54 H (0.55-1.02) mg/dL Est Cr Clr Drug Dosing TNP Estimated GFR (MDRD) 32 BUN/Creatinine Ratio 31.8 (No establ ref range) Glucose 210 H (74-99) mg/dL Lactic Acid 3.7 H* (0.4-2.0) mmol/L Calcium 9.9 (8.5-10.1) mg/dL Total Bilirubin 0.4 (0.2-1.0) mg/dL AST 44 H (15-37) U/L ALT 39 (14-59) U/L Alkaline Phosphatase 42 L (46-116) U/L Troponin I < 0.017 (0.000-0.056) ng/mL B-Natriuretic Peptide 388 H (0-100) pg/ml Total Protein 7.2 (6.4-8.2) g/dL Albumin 3.6 (3.4-5.0) g/dL Globulin 3.6 Albumin/Globulin Ratio 1.0 Urine Color (YELLOW) Urine Appearance (CLEAR) Urine pH (5.0-9.0) Ur Specific Kathryn (1.005-1.030) Urine Protein (NEGATIVE) Urine Glucose (UA) (NEGATIVE) Urine Ketones (NEGATIVE) Urine Occult Blood (NEGATIVE) Urine Nitrite (NEGATIVE) Urine Bilirubin (NEGATIVE) Urine Urobilinogen (0.2-1.0) mg/dL Ur Leukocyte Esterase (NEGATIVE) Urine RBC /HPF Urine WBC (0-5/HPF) /HPF Ur Epithelial Cells (NOT SEEN) /HPF Amorphous Sediment (NOT SEEN) /HPF Urine Bacteria (0-FEW/HPF) /HPF Urine Mucus (NOT SEEN) /LPF SARS-CoV-2 RNA (RT-PCR) (NEGATIVE) 03/09/20 03/09/20 03/09/20 Range/Units 00:31 00:31 01:53 WBC (5.0-10.0) 10^3/uL RBC (4.2-5.4) 10^6/uL Hgb (12.0-16.0) g/dL Hct (37.0-47.0) % MCV (80-100) fL MCH (27.0-34.0) pg MCHC (33.0-35.0) g/dL Plt Count (150-450) 10^3/uL Neut % (Auto) (42.2-75.2) % Lymph % (Auto) (20.5-50.1) % [place] % (Auto) (2-8) % Eos % (Auto) (1.0-3.0) % Baso % (Auto) (0.0-1.0) % PT 29.2 H D (9.0-12.0) SEC INR 3.1 H (0.9-1.2) D-Dimer, Quantitative 823 H (0-400) ng/mL Sodium (136-145) mmol/L Potassium (3.5-5.1) mmol/L Chloride (98-107) mmol/L Carbon Dioxide (21-32) mmol/L Anion Gap (7-13) mEq/L BUN (7-18) mg/dL Creatinine (0.55-1.02) mg/dL Est Cr Clr Drug Dosing Estimated GFR (MDRD) BUN/Creatinine Ratio (No establ ref range) Glucose (74-99) mg/dL Lactic Acid (0.4-2.0) mmol/L Calcium (8.5-10.1) mg/dL Total Bilirubin (0.2-1.0) mg/dL AST (15-37) U/L ALT (14-59) U/L Alkaline Phosphatase (46-116) U/L Troponin I (0.000-0.056) ng/mL B-Natriuretic Peptide (0-100) pg/ml Total Protein (6.4-8.2) g/dL Albumin (3.4-5.0) g/dL Globulin Albumin/Globulin Ratio Urine Color Yellow (YELLOW) Urine Appearance Turbid (CLEAR) Urine pH 5.5 (5.0-9.0) Ur Specific Kathryn 1.015 (1.005-1.030) Urine Protein 100 H (NEGATIVE) Urine Glucose (UA) 100 H (NEGATIVE) Urine Ketones Negative (NEGATIVE) Urine Occult Blood Small H (NEGATIVE) Urine Nitrite Negative (NEGATIVE) Urine Bilirubin Negative (NEGATIVE) Urine Urobilinogen 0.2 (0.2-1.0) mg/dL Ur Leukocyte Esterase Small H (NEGATIVE) Urine RBC 5-10 H /HPF Urine WBC 75-100 H (0-5/HPF) /HPF Ur Epithelial Cells Rare (NOT SEEN) /HPF Amorphous Sediment Moderate H (NOT SEEN) /HPF Urine Bacteria Few (0-FEW/HPF) /HPF Urine Mucus Not seen (NOT SEEN) /LPF SARS-CoV-2 RNA (RT-PCR) (NEGATIVE) 03/09/20 Range/Units 02:25 WBC (5.0-10.0) 10^3/uL RBC (4.2-5.4) 10^6/uL Hgb (12.0-16.0) g/dL Hct (37.0-47.0) % MCV (80-100) fL MCH (27.0-34.0) pg MCHC (33.0-35.0) g/dL Plt Count (150-450) 10^3/uL Neut % (Auto) (42.2-75.2) % Lymph % (Auto) (20.5-50.1) % [place] % (Auto) (2-8) % Eos % (Auto) (1.0-3.0) % Baso % (Auto) (0.0-1.0) % PT (9.0-12.0) SEC INR (0.9-1.2) D-Dimer, Quantitative (0-400) ng/mL Sodium (136-145) mmol/L Potassium (3.5-5.1) mmol/L Chloride (98-107) mmol/L Carbon Dioxide (21-32) mmol/L Anion Gap (7-13) mEq/L BUN (7-18) mg/dL Creatinine (0.55-1.02) mg/dL Est Cr Clr Drug Dosing Estimated GFR (MDRD) BUN/Creatinine Ratio (No establ ref range) Glucose (74-99) mg/dL Lactic Acid (0.4-2.0) mmol/L Calcium (8.5-10.1) mg/dL Total Bilirubin (0.2-1.0) mg/dL AST (15-37) U/L ALT (14-59) U/L Alkaline Phosphatase (46-116) U/L Troponin I (0.000-0.056) ng/mL B-Natriuretic Peptide (0-100) pg/ml Total Protein (6.4-8.2) g/dL Albumin (3.4-5.0) g/dL Globulin Albumin/Globulin Ratio Urine Color (YELLOW) Urine Appearance (CLEAR) Urine pH (5.0-9.0) Ur Specific Kathryn (1.005-1.030) Urine Protein (NEGATIVE) Urine Glucose (UA) (NEGATIVE) Urine Ketones (NEGATIVE) Urine Occult Blood (NEGATIVE) Urine Nitrite (NEGATIVE) Urine Bilirubin (NEGATIVE) Urine Urobilinogen (0.2-1.0) mg/dL Ur Leukocyte Esterase (NEGATIVE) Urine RBC /HPF Urine WBC (0-5/HPF) /HPF Ur Epithelial Cells (NOT SEEN) /HPF Amorphous Sediment (NOT SEEN) /HPF Urine Bacteria (0-FEW/HPF) /HPF Urine Mucus (NOT SEEN) /LPF SARS-CoV-2 RNA (RT-PCR) Negative (NEGATIVE) Result Diagrams: 03/09/20 00:31 03/09/20 00:31 *Q Meaningful Use (ADM) - VTE *Q VTE Anticoagulation Contraindications: Alternative TX Request PT - Problem List (1) Anticoagulated on Coumadin SNOMED Code(s): 72726747 ICD Code: Z79.01 - NUCLEAR CARDIOLOGY TECHNOLOGIST (CURRENT) USE OF ANTICOAGULANTS Status: Acute Current Visit: No (2) CHF (congestive heart failure) SNOMED Code(s): 69863624 ICD Code: I50.9 - HEART FAILURE, UNSPECIFIED Status: Acute Current Visit : No Qualifiers: Heart failure type: unspecified Heart failure chronicity: acute Qualified Code(s): I50.9 - Heart failure, unspecified (3) COPD (chronic obstructive pulmonary disease) SNOMED Code(s): 00819406 ICD Code: J44.9 - CHRONIC OBSTRUCTIVE PULMONARY DISEASE, UNSPECIFIED Status : Acute Current Visit: No Qualifiers: COPD type: unspecified COPD Qualified Code(s): J44.9 - Chronic obstructive pulmonary disease, unspecified (4) Elevated d-dimer SNOMED Code(s): 228158463 ICD Code: R79.89 - OTHER SPECIFIED ABNORMAL FINDINGS OF BLOOD CHEMISTRY Status: Acute Current Visit: No (5) History of CVA (cerebrovascular accident) SNOMED Code(s): 093312158 ICD Code: Z86.73 - PRSNL HX OF TIA (TIA), AND CEREB INFRC W/O RESID DEFICITS Status: Acute Current Visit: No (6) Hypokalemia SNOMED Code(s): 95440526 ICD Code: E87.6 - HYPOKALEMIA Status: Acute Current Visit: No (7) Respiratory failure SNOMED Code(s): 408145782 ICD Code: J96.90 - RESPIRATORY FAILURE, UNSP, UNSP W HYPOXIA OR HYPERCAPNIA Status: Acute Current Visit: No Qualifiers: Chronicity: acute Respiratory failure complication: hypercapnia Qualified Code(s): J96.02 - Acute respiratory failure with hypercapnia Problem List Initiated/Reviewed/Updated: Yes Orders Last 24hrs: Active Orders 24 hr Category Date Time Status Admission Diagnosis [ADT] Stat ADT 03/09/20 04:28 Ordered Admission Status [Patient Status] [ADT] Routine ADT 03/09/20 04:28 Active EKG 12 Lead [EKG Documentation Completion] [RC] STAT Care 03/09/20 00:14 Active Intake and Output [RC] QSHIFT Care 03/09/20 05:15 Ordered Oxygen Therapy [RC] PRN Care 03/09/20 05:14 Ordered Up With Assistance [RC] ASDIRECTED Care 03/09/20 05:14 Ordered VTE/DVT Education [RC] PER UNIT ROUTINE Care 03/09/20 05:14 Ordered Vital Signs [RC] Q4H Care 03/09/20 05:14 Ordered 2 Gram Sodium Diet [DIET] Diet 03/09/20 Breakfast Ordered Chest 1V Frontal [CR] Urgent Exams 03/09/20 00:12 Taken BASIC METABOLIC PANEL,BMP [CHEM] AM Lab 03/10/20 05:11 Ordered CBC W/O DIFF,HEMOGRAM [HEME] AM Lab 03/10/20 05:11 Ordered CULTURE BLOOD [BC] Stat Lab 03/09/20 00:31 Received CULTURE URINE [RM] Stat Lab 03/09/20 01:53 Received Acetaminophen/oxyCODONE [Percocet 325-5 MG] Med 03/09/20 05:11 Ordered 1 tab PO Q6H PRN Albuterol [Proventil HFA] Med 03/09/20 05:11 Ordered 2 puff INH Q4H PRN Albuterol/Ipratropium [DuoNeb 3.0-0.5 MG/3 ML] Med 03/09/20 05:11 Ordered 3 ml INH Q4H PRN Aspirin [Halfprin] Med 03/09/20 09:00 Ordered 81 mg PO DAILY Calcium Carbonate/Vitamin D3 [Calcium 250+D] Med 03/09/20 09:00 Ordered 1 each PO DAILY Ciclopirox/Urea/Camph/Men/Euc [Ciclopirox 8% Treatment Med 03/09/20 09:00 Ordered Kit] 34.6 ml TP DAILY Cyanocobalamin (Vitamin B12) [Vitamin B12] Med 03/09/20 09:00 Ordered 1,000 mcg PO DAILY Docusate Sodium [Colace] Med 03/09/20 09:00 Ordered 100 mg PO DAILY Docusate Sodium/Sennosides [Senna Plus] Med 03/09/20 05:14 Ordered 1 tab PO BEDTIME PRN Fenofibrate [Fenofibrate] Med 03/09/20 21:00 Ordered 160 mg PO BEDTIME Ferrous Sulfate Med 03/09/20 05:15 Ordered 325 mg PO .SUPPER Folic Acid Med 03/09/20 09:00 Ordered 1 mg PO DAILY Furosemide [Lasix] Med 03/09/20 09:00 Ordered 80 mg PO DAILY Magnesium Oxide [Magnesium] Med 03/09/20 09:00 Ordered 1 tab PO DAILY Menthol/Methyl Salicylate [Icy Hot Cream] Med 03/09/20 05:11 Ordered 85 gm TOP QID PRN Metoprolol Succinate [Toprol XL] Med 03/09/20 09:00 Ordered 100 mg PO DAILY [place]-3 Acid Ethyl Esters [Lovaza] Med 03/09/20 09:00 Ordered 2 gm PO BID Ondansetron [Zofran ODT] Med 03/09/20 05:14 Ordered 4 mg PO Q6H PRN Ondansetron [Zofran] Med 03/09/20 05:14 Ordered 4 mg IVPUSH Q6H PRN Pantoprazole [ProTONIX] Med 03/09/20 09:00 Ordered 40 mg PO DAILY Pharmacy to Dose - Vancomycin Med 03/09/20 05:15 Ordered 1 dose .XX ASDIRECTED Pharmacy to Dose - Warfarin Med 03/09/20 05:15 Ordered 1 dose .XX ASDIRECTED Potassium Chloride [Klor-Con 10] Med 03/09/20 09:00 Ordered 10 meq PO DAILY Propylene Glycol/Peg 400 [Systane 0.3-0.4% Eye Drops] Med 03/09/20 09:00 Ordered 1 drop EYEBOTH BID Sodium Chloride 0.9% [Normal Saline] 1,000 ml Med 03/09/20 04:30 Active IV ASDIRECTED cefTRIAXone [Rocephin] 2 gm Med 03/09/20 05:30 Ordered Sodium Chloride 0.9% [Normal Saline] 100 ml IV Q24H cloNIDine [Catapres] Med 03/09/20 09:00 Ordered 0.2 mg PO BID hydroCHLOROthiazide Med 03/09/20 09:00 Ordered 25 mg PO DAILY Anticoagulation Contraindications VTE [AST] Per Unit Oth 03/09/20 05:14 Ordered Routine Resuscitation Status Routine Resus Stat 03/09/20 05:14 Ordered Medication Orders Albuterol (Proventil Hfa) gm INH Q4H PRN PRN Reason: Wheezing Albuterol/Ipratropium (Duoneb 3.0-0.5 Mg/3 Ml) 3 ml INH Q4H PRN PRN Reason: Wheezing Aspirin (Halfprin) 81 mg PO DAILY DREA Clonidine HCl (Catapres) 0.2 mg PO BID [facility]REA Cyanocobalamin (Vitamin B12) 1,000 mcg PO DAILY DREA Docusate Sodium (Colace) 100 mg PO DAILY DREA Ferrous Sulfate (Ferrous Sulfate) 325 mg PO .SUPPER DREA Folic Acid (Folic Acid) 1 mg PO DAILY DREA Furosemide (Lasix) 80 mg PO DAILY DREA Hydrochlorothiazide (Hydrochlorothiazide) 25 mg PO DAILY DREA Sodium Chloride (Normal Saline) 1,000 mls @ 75 mls/hr IV ASDIRECTED DREA Last Admin: 03/09/20 04:40 Dose: 75 mls/hr Ceftriaxone Sodium 2 gm/ (Sodium Chloride) 100 mls @ 200 mls/hr IV Q24H DREA Methyl Salicylate (Icy Hot Cream) 85 gm TOP QID PRN PRN Reason: Pain Non-Formulary Medication (Calcium Carbonate/Vitamin D3 [Calcium 250+D]) 1 each PO DAILY DREA Non-Formulary Medication (Ciclopirox/Urea/Camph/Men/Euc [Ciclopirox 8% Treatment Kit]) 34.6 ml TP DAILY DREA Non-Formulary Medication (Fenofibrate [Fenofibrate]) 160 mg PO BEDTIME DREA Non-Formulary Medication (Magnesium Oxide [Magnesium]) 1 tab PO DAILY DREA Non-Formulary Medication (Metoprolol Succinate [Toprol Xl]) 100 mg PO DAILY DREA Non-Formulary Medication ([place]-3 Acid Ethyl Esters [Lovaza]) 2 gm PO BID DREA Non-Formulary Medication (Propylene Glycol/Peg 400 [Systane 0.3-0.4% Eye Drops] ) 1 drop EYEBOTH BID DREA Ondansetron HCl (Zofran Odt) 4 mg PO Q6H PRN PRN Reason: nausea, able to take PO Ondansetron HCl (Zofran) 4 mg IVPUSH Q6H PRN PRN Reason: Nausea/Vomiting Oxycodone/Acetaminophen (Percocet 325-5 Mg) 1 tab PO Q6H PRN PRN Reason: Pain Pantoprazole Sodium (Protonix) 40 mg PO DAILY DREA Potassium Chloride (Klor-Con 10) 10 meq PO DAILY DREA Senna/Docusate Sodium (Senna Plus) 1 tab PO BEDTIME PRN PRN Reason: Constipation Vancomycin HCl (Pharmacy To Dose - Vancomycin) 1 dose .XX ASDIRECTED [facility] Warfarin Sodium (Pharmacy To Dose - Warfarin) 1 dose .XX ASDIRECTED [facility] Assessment/Plan Comment:: Probable sepsis: Patient with heart rate of 100 and respiratory to 28 on presentation. Reported to have hypoxia at home. O2 saturation improved to 98% on 2 L of oxygen and after nebulized treatments.Follow-up on blood cultures Start vancomycin and Rocephin Obtain CT scan COVID-19 screen negative #Lactic acidosis: Likely due to sepsis and hypoxia Gentle fluid resuscitation Trend lactic acid levels #Acute respiratory failure with hypoxia: Patient with O2 saturation of 80s at home. Reported shortness of breath that started last night. Troponin negative. No other symptoms indicating ACS. Supplemental oxygen, titrate to SPO2 of 88 to 92% due to history of COPD Continue nebulized and inhaled treatments. Follow-up on CT scan #Elevated d-dimer: Concern for possible DVT/PE Patient is anticoagulated on warfarin Family declines transfer for VQ scan Patient has CKD and unable to obtain CT with PE protocol #Arthritis of the right shoulder Follows as outpatient Continue pain medications #History of CHF Continue Lasix 1500 cc daily fluid restrictions Low-sodium diet Strict I's and O's #Diabetes mellitus Diabetic diet Sliding scale insulin hypoglycemia protocol #Hypertriglyceridemia #Hyperlipidemia #Hypertension Continue home medications #CKD stage III Avoid nephrotoxins Renal dosing of medications Monitor renal function #DVT prophylaxis: Warfarin, pharmacy to dose #GI prophylaxis: Diabetic diet Status: Per Dr. Fry, patient and family wants her to be DNR/DNI
[2020-03-09] MEDS ORDERED: cefTRIAXone 2 GM in Sodium Chloride 0.9% 100 ML IV SCH (06:00)
[2020-03-09] MEDS: Docusate Sodium 100 MG Cap PO SCH (08:42)
[2020-03-09] MEDS: Cyanocobalamin (Vitamin B12) 1,000 MCG Tab PO SCH (08:42)
[2020-03-09] MEDS: Calcium Carbonate/Vitamin D3 1250 MG-200 Unit Tab PO SCH (08:43)
[2020-03-09] MEDS: Hydrochlorothiazide 25 MG Tab PO SCH (08:43)
[2020-03-09] MEDS: Folic Acid 1 MG Tab PO SCH (08:43)
[2020-03-09] MEDS: Aspirin 81 MG Tab.EC PO SCH (08:44)
[2020-03-09] MEDS: cloNIDine 0.1 MG Tab PO SCH ×2 (08:44→21:16)
[2020-03-09] MEDS: Potassium Chloride 10 MEQ Tab.ER PO SCH (08:44)
[2020-03-09] MEDS: Furosemide 40 MG Tab PO SCH (08:44)
[2020-03-09] MEDS: Metoprolol Succinate 50 MG Tab.ER PO SCH (08:45)
[2020-03-09] MEDS: Insulin Lispro 100 Units/ML 3 ML Vial SUBCUT SCH ×4 (08:48→21:13)
[2020-03-09] MEDS ORDERED: OMEGA ACID ETHYL ESTERS PO SCH (09:00)
[2020-03-09] MEDS ORDERED: Non-Formulary Medication 1 Each (Propylene Glycol/Peg 400 [Systane 0.3-0.4% Eye Drops] 1 D EYEBOTH SCH (09:00)
[2020-03-09] MEDS ORDERED: Non-Formulary Medication 1 Each (Ciclopirox/Urea/Camph/Men/Euc [Ciclopirox 8% Treatment Ki TP SCH (09:00)
[2020-03-09] MEDS: Acetaminophen/oxyCODONE 325-5 MG Tab PO PRN ×2 (12:20→21:28)
[2020-03-09] MEDS ORDERED: [UNRECOGNIZED DRUG - REMARK] ONE (14:00)
[2020-03-09] MEDS: Ferrous Sulfate 325 MG Tab PO SCH (17:54)
[2020-03-09] MEDS: Fenofibrate Nanocrystallized 145 MG Tab PO SCH (21:16)
[2020-03-10] MEDS: cefTRIAXone 2 GM in Sodium Chloride 0.9% 100 ML IV SCH (06:34)
[2020-03-10] MEDS: Pantoprazole 40 MG Tab.CR PO SCH (06:41)
[2020-03-10 07:10] LABS: ANION GAP 9.4 mEq/L (7-13)
[2020-03-10] MEDS: Insulin Lispro 100 Units/ML 3 ML Vial SUBCUT SCH ×4 (09:46→21:06)
[2020-03-10] MEDS: Cyanocobalamin (Vitamin B12) 1,000 MCG Tab PO SCH (09:49)
[2020-03-10] MEDS: Metoprolol Succinate 50 MG Tab.ER PO SCH (09:49)
[2020-03-10] MEDS: Hydrochlorothiazide 25 MG Tab PO SCH (09:49)
[2020-03-10] MEDS: Potassium Chloride 10 MEQ Tab.ER PO SCH (09:51)
[2020-03-10] MEDS: Furosemide 40 MG Tab PO SCH (09:51)
[2020-03-10] MEDS: cloNIDine 0.1 MG Tab PO SCH ×2 (09:53→21:04)
[2020-03-10] MEDS: Docusate Sodium 100 MG Cap PO SCH (09:53)
[2020-03-10] MEDS: Calcium Carbonate/Vitamin D3 1250 MG-200 Unit Tab PO SCH (09:53)
[2020-03-10] MEDS: Folic Acid 1 MG Tab PO SCH (09:54)
[2020-03-10] MEDS: Aspirin 81 MG Tab.EC PO SCH (09:54)
[2020-03-10] MEDS ORDERED: Potassium Chloride 10 MEQ Tab.ER PO ONE (10:20)
--- NOTE | 2020-03-10 11:24 | PCM.PN ---
- General Info Date of Service: 03/10/20 Admission Dx/Problem (Free Text): Admission Diagnosis/Problem Admission Diagnosis/Problem Sepsis Subjective Update: Pt was seen in room doing well, appetite is good, No nausea or Vomiting, No fever or chill, she did not sleep well last night Functional Status: Reports: Pain Controlled, Tolerating Diet, Ambulating, Urinating - Review of Systems General: Reports: Appetite (is improving). Denies: Fever, Chills HEENT: Denies: Headaches, Sinus Congestion, Sore Throat, Visual Changes Pulmonary: Denies: Shortness of Breath, Cough, Sputum, Wheezing Cardiovascular: Denies: Chest Pain, Edema, Lightheadedness Gastrointestinal: Denies: Abdominal Pain, Diarrhea, Nausea, Vomiting Genitourinary: Denies: Dysuria, Burning, Urgency, Flank Pain Musculoskeletal: Denies: Neck Pain, Shoulder Pain, Leg Pain Skin: Denies: Cyanosis, Bruising, Pruritis, Rash Neurological: Denies: Confusion, Headache, Tremors Psychiatric: Denies: Confusion, Anxiety, Hallucinations - Patient Data Vitals - Most Recent: Last Vital Signs Temp 37.0 C 03/10/20 08:00 Pulse 75 03/10/20 09:49 Resp 18 03/10/20 08:00 BP 146/66 H 03/10/20 09:53 Pulse Ox 93 L 03/10/20 08:00 Weight - Most Recent: 67.676 kg I&O - Last 24 Hours: Intake & Output 03/09/20 03/10/20 03/10/20 22:59 06:59 14:59 Intake Total 1507 519 551 Output Total 3457 1999 Balance 381 -7011 551 Lab Results Last 24 Hours: Laboratory Results - last 24 hr 03/09/20 03/09/20 03/09/20 Range/Units 11:35 11:49 15:30 WBC (5.0-10.0) 10^3/uL RBC (4.2-5.4) 10^6/uL Hgb (12.0-16.0) g/dL Hct (37.0-47.0) % MCV (80-100) fL MCH (27.0-34.0) pg MCHC (33.0-35.0) g/dL Plt Count (150-450) 10^3/uL PT (9.0-12.0) SEC INR (0.9-1.2) Sodium (136-145) mmol/L Potassium (3.5-5.1) mmol/L Chloride (98-107) mmol/L Carbon Dioxide (21-32) mmol/L Anion Gap (7-13) mEq/L BUN (7-18) mg/dL Creatinine (0.55-1.02) mg/dL Est Cr Clr Drug Dosing mL/min Estimated GFR (MDRD) Glucose (74-99) mg/dL POC Glucose 217 H (83-110) mg/dl Lactic Acid 2.7 H* 2.2 H* (0.4-2.0) mmol/L Calcium (8.5-10.1) mg/dL 03/09/20 03/09/20 03/09/20 Range/Units 16:58 19:35 21:05 WBC (5.0-10.0) 10^3/uL RBC (4.2-5.4) 10^6/uL Hgb (12.0-16.0) g/dL Hct (37.0-47.0) % MCV (80-100) fL MCH (27.0-34.0) pg MCHC (33.0-35.0) g/dL Plt Count (150-450) 10^3/uL PT (9.0-12.0) SEC INR (0.9-1.2) Sodium (136-145) mmol/L Potassium (3.5-5.1) mmol/L Chloride (98-107) mmol/L Carbon Dioxide (21-32) mmol/L Anion Gap (7-13) mEq/L BUN (7-18) mg/dL Creatinine (0.55-1.02) mg/dL Est Cr Clr Drug Dosing mL/min Estimated GFR (MDRD) Glucose (74-99) mg/dL POC Glucose 142 H 174 H (83-110) mg/dl Lactic Acid 2.1 H* (0.4-2.0) mmol/L Calcium (8.5-10.1) mg/dL 03/10/20 03/10/20 03/10/20 Range/Units 06:30 06:30 06:30 WBC 8.1 (5.0-10.0) 10^3/uL RBC 4.15 L (4.2-5.4) 10^6/uL Hgb 10.1 L (12.0-16.0) g/dL Hct 31.5 L (37.0-47.0) % MCV 75.9 L (80-100) fL MCH 24.3 L (27.0-34.0) pg MCHC 32.1 L (33.0-35.0) g/dL Plt Count 237 (150-450) 10^3/uL PT 21.8 H (9.0-12.0) SEC INR 2.3 H (0.9-1.2) Sodium 141 (136-145) mmol/L Potassium 3.4 L (3.5-5.1) mmol/L Chloride 101 (98-107) mmol/L Carbon Dioxide 34 H (21-32) mmol/L Anion Gap 9.4 (7-13) mEq/L BUN 38 H (7-18) mg/dL Creatinine 1.20 H (0.55-1.02) mg/dL Est Cr Clr Drug Dosing 24.45 mL/min Estimated GFR (MDRD) 42 Glucose 166 H (74-99) mg/dL POC Glucose (83-110) mg/dl Lactic Acid (0.4-2.0) mmol/L Calcium 9.9 (8.5-10.1) mg/dL 03/10/20 Range/Units 07:47 WBC (5.0-10.0) 10^3/uL RBC (4.2-5.4) 10^6/uL Hgb (12.0-16.0) g/dL Hct (37.0-47.0) % MCV (80-100) fL MCH (27.0-34.0) pg MCHC (33.0-35.0) g/dL Plt Count (150-450) 10^3/uL PT (9.0-12.0) SEC INR (0.9-1.2) Sodium (136-145) mmol/L Potassium (3.5-5.1) mmol/L Chloride (98-107) mmol/L Carbon Dioxide (21-32) mmol/L Anion Gap (7-13) mEq/L BUN (7-18) mg/dL Creatinine (0.55-1.02) mg/dL Est Cr Clr Drug Dosing mL/min Estimated GFR (MDRD) Glucose (74-99) mg/dL POC Glucose 181 H (83-110) mg/dl Lactic Acid (0.4-2.0) mmol/L Calcium (8.5-10.1) mg/dL [place] Results Last 24 Hours: Microbiology 03/09/20 01:53 Urine Culture - Preliminary Urine, Voided 03/09/20 00:31 Aerobic Blood Culture - Preliminary Blood NO GROWTH AFTER 1 DAY Anaerobic Blood Culture - Preliminary NO GROWTH AFTER 1 DAY Med Orders - Current: Current Medications Albuterol (Proventil Hfa) 0 gm INH Q4H PRN PRN Reason: Wheezing Albuterol/Ipratropium (Duoneb 3.0-0.5 Mg/3 Ml) 3 ml INH Q4H PRN PRN Reason: Wheezing Aspirin (Halfprin) 81 mg PO DAILY [facility] Last Admin: 03/10/20 09:54 Dose: 81 mg Calcium Carbonate (Calcium Carbonate/Vitamin D 1250 Mg-200 Unit) 1 tab PO DAILY [facility] Last Admin: 03/10/20 09:53 Dose: 1 tab Clonidine HCl (Catapres) 0.2 mg PO BID [facility] Last Admin: 03/10/20 09:53 Dose: 0.2 mg Cyanocobalamin (Vitamin B12) 1,000 mcg PO DAILY [facility] Last Admin: 03/10/20 09:49 Dose: 1,000 mcg Dextrose/Water (Dextrose 50% In Water) 25 ml IVPUSH ASDIRECTED PRN PRN Reason: Hypoglycemia Docusate Sodium (Colace) 100 mg PO DAILY [facility] Last Admin: 03/10/20 09:53 Dose: 100 mg Fenofibrate (Tricor) 145 mg PO BEDTIME [facility] Last Admin: 03/09/20 21:16 Dose: 145 mg Ferrous Sulfate (Ferrous Sulfate) 325 mg PO PCDINNER [facility] Last Admin: 03/09/20 17:54 Dose: 325 mg Folic Acid (Folic Acid) 1 mg PO DAILY [facility] Last Admin: 03/10/20 09:54 Dose: 1 mg Furosemide (Lasix) 80 mg PO DAILY [facility] Last Admin: 03/10/20 09:51 Dose: 80 mg Glucagon (Glucagen) 1 mg IM ONETIME PRN PRN Reason: Hypoglycemia Hydrochlorothiazide (Hydrochlorothiazide) 25 mg PO DAILY [facility] Last Admin: 03/10/20 09:49 Dose: 25 mg Vancomycin HCl 1 gm/ Sodium (Chloride) 250 mls @ 166.667 mls/hr IV Q24H [facility] Last Admin: 03/10/20 09:48 Dose: 166.667 mls/hr Ceftriaxone Sodium 2 gm/ (Sodium Chloride) 100 mls @ 200 mls/hr IV Q24H [facility] Last Infusion: 03/10/20 07:05 Dose: Infused Insulin Human Lispro (Humalog) 0 unit SUBCUT ACBED [facility]; Protocol Last Admin: 03/10/20 09:46 Dose: 1 unit Magnesium Oxide (Magnesium Oxide) 375 mg PO DAILY [facility] Last Admin: 03/10/20 09:50 Dose: 375 mg Methyl Salicylate (Icy Hot Cream) 85 gm TOP QID PRN PRN Reason: Pain Metoprolol Succinate (Toprol Xl) 100 mg PO DAILY [facility] Last Admin: 03/10/20 09:49 Dose: 100 mg Non-Formulary Medication (Ciclopirox/Urea/Camph/Men/Euc [Ciclopirox 8% Treatment Kit]) 34.6 ml TP DAILY [facility] Non-Formulary Medication ([place]-3 Acid Ethyl Esters [Lovaza]) 2 gm PO BID [facility] Non-Formulary Medication (Propylene Glycol/Peg 400 [Systane 0.3-0.4% Eye Drops] ) 1 drop EYEBOTH BID [facility] Ondansetron HCl (Zofran Odt) 4 mg PO Q6H PRN PRN Reason: nausea, able to take PO Ondansetron HCl (Zofran) 4 mg IVPUSH Q6H PRN PRN Reason: Nausea/Vomiting Oxycodone/Acetaminophen (Percocet 325-5 Mg) 1 tab PO Q6H PRN PRN Reason: Pain Last Admin: 03/09/20 21:28 Dose: 1 tab Pantoprazole Sodium (Protonix) 40 mg PO ACBREAKFAST [facility] Last Admin: 03/10/20 06:41 Dose: 40 mg Potassium Chloride (Klor-Con 10) 10 meq PO DAILY [facility] Last Admin: 03/10/20 09:51 Dose: 10 meq Senna/Docusate Sodium (Senna Plus) 1 tab PO BEDTIME PRN PRN Reason: Constipation Vancomycin HCl (Pharmacy To Dose - Vancomycin) 1 dose .XX ASDIRECTED [facility] Warfarin Sodium (Pharmacy To Dose - Warfarin) 1 dose .XX ASDIRECTED [facility] Warfarin Sodium (Coumadin) 3 mg PO ONETIME ONE Stop: 03/10/20 14:01 Discontinued Medications Sodium Chloride (Normal Saline) 1,000 mls @ 75 mls/hr IV ASDIRECTED [facility] Last Admin: 03/09/20 04:40 Dose: 75 mls/hr Piperacillin Sod/Tazobactam (Sod 3.375 gm/ Sodium Chloride) 100 mls @ 200 mls/ hr IV Q6H [facility] Last Admin: 03/09/20 05:35 Dose: Not Given Ceftriaxone Sodium 2 gm/ (Sodium Chloride) 100 mls @ 200 mls/hr IV Q24H [facility] Last Admin: 03/09/20 05:58 Dose: 200 mls/hr Vancomycin HCl 1 gm/ Sodium (Chloride) 250 mls @ 166.667 mls/hr IV Q24H [facility] Last Admin: 03/09/20 07:52 Dose: 166.667 mls/hr No Warfarin Dose (Today) 0 each .XX ONETIME ONE Stop: 03/09/20 14:01 Last Admin: 03/09/20 14:53 Dose: Not Given Potassium Chloride (Klor-Con 10) 20 meq PO ONETIME ONE Stop: 03/10/20 10:21 Last Admin: 03/10/20 10:42 Dose: 20 meq - Exam Quality Assessment: DVT Prophylaxis. No: Supplemental Oxygen, Urine Catheter General: Alert, Oriented, Cooperative, No Acute Distress HEENT: Pupils Equal, Pupils Reactive, EOMI, Mucous Membr. Moist/[place] Neck: Supple, No JVD, No Thyromegaly Lungs: Clear to Auscultation, Normal Respiratory Effort. No: Crackles, Wheezing Cardiovascular: Regular Rate, Regular Rhythm, Murmurs GI/Abdominal Exam: Normal Bowel Sounds, Soft. No: Rigid, Rebound (Female) Exam: Deferred Back Exam: Normal Inspection, Full Range of Motion Extremities: Normal Inspection, No Pedal Edema Skin: Warm, Dry, Intact Neurological: No New Focal Deficit Psy/Mental Status: Alert, Normal Affect, Normal Mood Sepsis Event Note - Evaluation Sepsis Screening Result: No Definite Risk - Focused Exam Vital Signs: Vital Signs Temp Pulse Pulse Resp BP BP Pulse Ox 03/10/20 09:53 146/66 H 03/10/20 09:49 75 146/66 H 03/10/20 08:00 37.0 C 75 18 146/66 H 93 L 03/10/20 05:14 03/09/20 23:22 36.2 C 68 20 123/41 L 92 L Pulse Ox 03/10/20 09:53 03/10/20 09:49 03/10/20 08:00 03/10/20 05:14 93 L 03/09/20 23:22 Date Exam was Performed: 03/10/20 Time Exam was Performed: 11:25 - Problem List Review Problem List Initiated/Reviewed/Updated: Yes - Plan Plan:: Ms. 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 According to the ED provider, EMS reported that patient's O2 saturation was in the 80s on arrival to the scene. She was given nebulized treatment and O2 saturation improved. Patient reports that she had gone to the bathroom and when she returned and she could no catch her breath. States that symptoms persisted so she called EMS. Denies any chest pain, neck pain, jaw pain, diaphoresis, lightheadedness, cough, or any new symptoms. In the ED, troponin was negative. Patient had lactic acid of 3.7. Anion gap was 16.4. WBC was 15.8. She was tachycardic and tachypneic. D-dimer was requested and came back elevated at 823. Rapid COVID-[address] Fry discussed patient's elevated d-dimer with patient's daughter in the ED. He indicates that he explained to them that patient needs to go to hospital for VQ scan due to elevated creatinine levels making CTA PE protocol contraindicated. Family declined transfer to [facility] and that they want patient to be DNR/DNI with no heroic measures. Impression and Plan: Probable sepsis: Patient with heart rate of 100 and respiratory to 28 on presentation. Reported to have hypoxia at home. O2 saturation improved to 98% on 2 L of oxygen and after nebulized treatments.Follow-up on blood cultures ( no growth in 1 day) , urine culture <50K of gram negative roads -Will continue vancomycin and Rocephin -She is doing better and will need to continue IV antibiotics 2. Lactic acidosis: Likely due to sepsis and hypoxia -now normalized 3. Acute respiratory failure with hypoxia: Patient with O2 saturation of 80s at home. Reported shortness of breath that started last night. Troponin negative. No other symptoms indicating ACS. - continue Supplemental oxygen, if needed, she is off supplemental oxygen, Continue nebulized and inhaled treatments. 3. Elevated d-dimer: Concern for possible DVT/PE -Patient is anticoagulated on warfarin -Family declines transfer for VQ scan -Patient has CKD and unable to obtain CT with PE protocol 4. History of CHF Continue Lasix at 80 mg PO daily 1500 cc daily fluid restrictions Low-sodium diet Strict I's and O's 5. Diabetes mellitus -continue Diabetic diet -Sliding scale insulin hypoglycemia protocol 6. Hypertension: BP acceptable and continue clonidine 0.2 mg BID and Metoprolol at 100 mg daily 7. 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 Hypokalemia: This is likely from diuresis and will give potassium chloride 20 meq X 1 dose now -recheck potassium in AM DVT prophylaxis: Warfarin, pharmacy to dose GII prophylaxis: Diabetic diet Status: Per Dr. Fry, patient and family wants her to be DNR/DNI
[2020-03-10] MEDS: Acetaminophen/oxyCODONE 325-5 MG Tab PO PRN ×2 (13:41→21:04)
[2020-03-10] MEDS: Ferrous Sulfate 325 MG Tab PO SCH ×2 (16:59→17:45)
[2020-03-10] MEDS: Fenofibrate Nanocrystallized 145 MG Tab PO SCH (21:03)
[2020-03-11] MEDS: cefTRIAXone 2 GM in Sodium Chloride 0.9% 100 ML IV SCH (06:03)
[2020-03-11] MEDS: Pantoprazole 40 MG Tab.CR PO SCH (06:05)
[2020-03-11 06:24] LABS: ANION GAP 8.6 mEq/L (7-13)
[2020-03-11] MEDS: Insulin Lispro 100 Units/ML 3 ML Vial SUBCUT SCH ×4 (08:54→20:58)
[2020-03-11] MEDS: Furosemide 40 MG Tab PO SCH (09:10)
[2020-03-11] MEDS: Hydrochlorothiazide 25 MG Tab PO SCH (09:11)
[2020-03-11] MEDS: Potassium Chloride 10 MEQ Tab.ER PO SCH (09:12)
[2020-03-11] MEDS: Aspirin 81 MG Tab.EC PO SCH (09:12)
[2020-03-11] MEDS: Folic Acid 1 MG Tab PO SCH (09:12)
[2020-03-11] MEDS: Calcium Carbonate/Vitamin D3 1250 MG-200 Unit Tab PO SCH (09:12)
[2020-03-11] MEDS: cloNIDine 0.1 MG Tab PO SCH ×2 (09:13→20:54)
[2020-03-11] MEDS: Metoprolol Succinate 50 MG Tab.ER PO SCH (09:14)
[2020-03-11] MEDS: Cyanocobalamin (Vitamin B12) 1,000 MCG Tab PO SCH (09:14)
[2020-03-11] MEDS: Docusate Sodium 100 MG Cap PO SCH (09:16)
[2020-03-11] MEDS: Acetaminophen/oxyCODONE 325-5 MG Tab PO PRN ×2 (11:02→21:32)
[2020-03-11] MEDS: amLODIPine 5 MG Tab PO SCH (11:02)
[2020-03-11] MEDS ORDERED: Carboxymethylcellulose Sodium 1% Ophth Gel 0.4 ML UD EYEBOTH PRN (11:09)
--- NOTE | 2020-03-11 11:09 | PCM.PN ---
- General Info Date of Service: 03/11/20 Admission Dx/Problem (Free Text): Admission Diagnosis/Problem Admission Diagnosis/Problem Likely Sepsis Subjective Update: Pt was seen in room doing well, appetite is good, No nausea or Vomiting, No fever or chill, she did sleep well last night. Her BP is now getting better. Functional Status: Reports: Pain Controlled, Tolerating Diet, Ambulating, Urinating - Review of Systems General: Reports: Weakness, Appetite (good). Denies: Fever, Chills HEENT: Denies: Headaches, Sinus Congestion, Sore Throat, Visual Changes Pulmonary: Denies: Shortness of Breath, Cough, Sputum, Wheezing Cardiovascular: Reports: Edema. Denies: Chest Pain, Lightheadedness Gastrointestinal: Denies: Abdominal Pain, Diarrhea, Difficulty Swallowing, Nausea, Vomiting Genitourinary: Denies: Dysuria, Burning, Urgency, Flank Pain Musculoskeletal: Denies: Neck Pain, Shoulder Pain, Leg Pain, Joint Pain Skin: Denies: Cyanosis, Jaundice, Bruising, Pruritis, Rash Neurological: Denies: Confusion, Tingling, Tremors Psychiatric: Denies: Confusion, Anxiety, Agitation - Patient Data Vitals - Most Recent: Last Vital Signs Temp 37.0 C 03/11/20 07:45 Pulse 76 03/11/20 09:14 Resp 18 03/11/20 07:45 BP 151/56 H 03/11/20 09:14 Pulse Ox 97 03/11/20 07:45 Weight - Most Recent: 67.676 kg I&O - Last 24 Hours: Intake & Output 03/10/20 03/11/20 03/11/20 22:59 06:59 14:59 Intake Total 1050 190 670 Output Total 2125 1100 400 Balance -1075 -910 270 Lab Results Last 24 Hours: Laboratory Results - last 24 hr 03/10/20 03/10/20 03/10/20 Range/Units 11:34 16:35 20:53 PT (9.0-12.0) SEC INR (0.9-1.2) Sodium (136-145) mmol/L Potassium (3.5-5.1) mmol/L Chloride (98-107) mmol/L Carbon Dioxide (21-32) mmol/L Anion Gap (7-13) mEq/L BUN (7-18) mg/dL Creatinine (0.55-1.02) mg/dL Est Cr Clr Drug Dosing mL/min Estimated GFR (MDRD) Glucose (74-99) mg/dL POC Glucose 313 H 224 H 190 H (83-110) mg/dl Calcium (8.5-10.1) mg/dL 03/11/20 03/11/20 03/11/20 Range/Units 05:42 05:42 07:58 PT 12.9 H D (9.0-12.0) SEC INR 1.4 H (0.9-1.2) Sodium 140 (136-145) mmol/L Potassium 3.6 (3.5-5.1) mmol/L Chloride 101 (98-107) mmol/L Carbon Dioxide 34 H (21-32) mmol/L Anion Gap 8.6 (7-13) mEq/L BUN 33 H (7-18) mg/dL Creatinine 1.10 H (0.55-1.02) mg/dL Est Cr Clr Drug Dosing 26.68 mL/min Estimated GFR (MDRD) 47 Glucose 185 H (74-99) mg/dL POC Glucose 204 H (83-110) mg/dl Calcium 9.6 (8.5-10.1) mg/dL [place] Results Last 24 Hours: Microbiology 03/09/20 01:53 Urine Culture - Final Urine, Voided Proteus Mirabilis 03/09/20 00:31 Aerobic Blood Culture - Preliminary Blood NO GROWTH AFTER 2 DAYS Anaerobic Blood Culture - Preliminary NO GROWTH AFTER 2 DAYS Med Orders - Current: Current Medications Albuterol (Proventil Hfa) 0 gm INH Q4H PRN PRN Reason: Wheezing Albuterol/Ipratropium (Duoneb 3.0-0.5 Mg/3 Ml) 3 ml INH Q4H PRN PRN Reason: Wheezing Amlodipine Besylate (Norvasc) 10 mg PO DAILY [facility] Aspirin (Halfprin) 81 mg PO DAILY [facility] Last Admin: 03/11/20 09:12 Dose: 81 mg Calcium Carbonate (Calcium Carbonate/Vitamin D 1250 Mg-200 Unit) 1 tab PO DAILY [facility] Last Admin: 03/11/20 09:12 Dose: 1 tab Clonidine HCl (Catapres) 0.2 mg PO BID [facility] Last Admin: 03/11/20 09:13 Dose: 0.2 mg Cyanocobalamin (Vitamin B12) 1,000 mcg PO DAILY [facility] Last Admin: 03/11/20 09:14 Dose: 1,000 mcg Dextrose/Water (Dextrose 50% In Water) 25 ml IVPUSH ASDIRECTED PRN PRN Reason: Hypoglycemia Docusate Sodium (Colace) 100 mg PO DAILY [facility] Last Admin: 03/11/20 09:16 Dose: 100 mg Fenofibrate (Tricor) 145 mg PO BEDTIME [facility] Last Admin: 03/10/20 21:03 Dose: 145 mg Ferrous Sulfate (Ferrous Sulfate) 325 mg PO PCDINNER [facility] Last Admin: 03/10/20 17:45 Dose: Not Given Folic Acid (Folic Acid) 1 mg PO DAILY [facility] Last Admin: 03/11/20 09:12 Dose: 1 mg Furosemide (Lasix) 80 mg PO DAILY [facility] Last Admin: 03/11/20 09:10 Dose: 80 mg Glucagon (Glucagen) 1 mg IM ONETIME PRN PRN Reason: Hypoglycemia Hydrochlorothiazide (Hydrochlorothiazide) 25 mg PO DAILY [facility] Last Admin: 03/11/20 09:11 Dose: 25 mg Vancomycin HCl 1 gm/ Sodium (Chloride) 250 mls @ 166.667 mls/hr IV Q24H [facility] Last Admin: 03/11/20 08:56 Dose: 166.667 mls/hr Ceftriaxone Sodium 2 gm/ (Sodium Chloride) 100 mls @ 200 mls/hr IV Q24H [facility] Last Infusion: 03/11/20 06:33 Dose: Infused Insulin Human Lispro (Humalog) 0 unit SUBCUT ACBED [facility]; Protocol Last Admin: 03/11/20 08:54 Dose: 2 unit Magnesium Oxide (Magnesium Oxide) 375 mg PO DAILY [facility] Last Admin: 03/11/20 09:15 Dose: 375 mg Methyl Salicylate (Icy Hot Cream) 85 gm TOP QID PRN PRN Reason: Pain Metoprolol Succinate (Toprol Xl) 100 mg PO DAILY [facility] Last Admin: 03/11/20 09:14 Dose: 100 mg Non-Formulary Medication (Ciclopirox/Urea/Camph/Men/Euc [Ciclopirox 8% Treatment Kit]) 34.6 ml TP DAILY [facility] Non-Formulary Medication (Beaver-3 Acid Ethyl Esters [Lovaza]) 2 gm PO BID [facility] Non-Formulary Medication (Propylene Glycol/Peg 400 [Systane 0.3-0.4% Eye Drops] ) 1 drop EYEBOTH BID [facility] Ondansetron HCl (Zofran Odt) 4 mg PO Q6H PRN PRN Reason: nausea, able to take PO Ondansetron HCl (Zofran) 4 mg IVPUSH Q6H PRN PRN Reason: Nausea/Vomiting Oxycodone/Acetaminophen (Percocet 325-5 Mg) 1 tab PO Q6H PRN PRN Reason: Pain Last Admin: 03/10/20 21:04 Dose: 1 tab Pantoprazole Sodium (Protonix) 40 mg PO ACBREAKFAST [facility] Last Admin: 03/11/20 06:05 Dose: 40 mg Potassium Chloride (Klor-Con 10) 10 meq PO DAILY [facility] Last Admin: 03/11/20 09:12 Dose: 10 meq Senna/Docusate Sodium (Senna Plus) 1 tab PO BEDTIME PRN PRN Reason: Constipation Vancomycin HCl (Pharmacy To Dose - Vancomycin) 1 dose .XX ASDIRECTED [facility] Warfarin Sodium (Pharmacy To Dose - Warfarin) 1 dose .XX ASDIRECTED [facility] Warfarin Sodium (Coumadin) 6 mg PO ONETIME ONE Stop: 03/11/20 14:01 Discontinued Medications Sodium Chloride (Normal Saline) 1,000 mls @ 75 mls/hr IV ASDIRECTED [facility] Last Admin: 03/09/20 04:40 Dose: 75 mls/hr Piperacillin Sod/Tazobactam (Sod 3.375 gm/ Sodium Chloride) 100 mls @ 200 mls/ hr IV Q6H [facility] Last Admin: 03/09/20 05:35 Dose: Not Given Ceftriaxone Sodium 2 gm/ (Sodium Chloride) 100 mls @ 200 mls/hr IV Q24H [facility] Last Admin: 03/09/20 05:58 Dose: 200 mls/hr Vancomycin HCl 1 gm/ Sodium (Chloride) 250 mls @ 166.667 mls/hr IV Q24H [facility] Last Admin: 03/09/20 07:52 Dose: 166.667 mls/hr No Warfarin Dose (Today) 0 each .XX ONETIME ONE Stop: 03/09/20 14:01 Last Admin: 03/09/20 14:53 Dose: Not Given Potassium Chloride (Klor-Con 10) 20 meq PO ONETIME ONE Stop: 03/10/20 10:21 Last Admin: 03/10/20 10:42 Dose: 20 meq Warfarin Sodium (Coumadin) 3 mg PO ONETIME ONE Stop: 03/10/20 14:01 Last Admin: 03/10/20 13:37 Dose: 3 mg - Exam Quality Assessment: Urine Catheter, DVT Prophylaxis. No: Supplemental Oxygen General: Alert, Oriented, Cooperative, No Acute Distress HEENT: Pupils Equal, Pupils Reactive, EOMI, Mucous Membr. Moist/[place] Neck: Supple, No JVD, No Thyromegaly Lungs: Clear to Auscultation, Normal Respiratory Effort. No: Crackles, Wheezing Cardiovascular: Regular Rate, Regular Rhythm, Murmurs GI/Abdominal Exam: Normal Bowel Sounds, Soft, Non-Tender. No: Guarding, Rigid, Rebound (Female) Exam: Deferred Back Exam: Normal Inspection Extremities: Normal Inspection, No Pedal Edema Skin: Warm, Dry, Intact Neurological: No New Focal Deficit Psy/Mental Status: Alert, Normal Affect, Normal Mood Sepsis Event Note - Evaluation Sepsis Screening Result: No Definite Risk - Focused Exam Vital Signs: Vital Signs Temp Pulse Pulse Resp BP BP BP 03/11/20 09:14 76 151/56 H 03/11/20 09:13 151/56 H 03/11/20 08:05 151/56 H 03/11/20 07:45 37.0 C 72 18 188/88 H 03/11/20 05:00 03/10/20 23:35 36.2 C 59 L 18 114/56 L Pulse Ox Pulse Ox 03/11/20 09:14 03/11/20 09:13 03/11/20 08:05 03/11/20 07:45 97 03/11/20 05:00 92 L 03/10/20 23:35 91 L Date Exam was Performed: 03/11/20 Time Exam was Performed: 11:03 - Problem List Review Problem List Initiated/Reviewed/Updated: Yes - My Orders Last 24 Hours: My Active Orders 03/11/20 10:17 amLODIPine [Norvasc] 10 mg PO DAILY - Plan Plan:: Ms. 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 According to the ED provider, EMS reported that patient's O2 saturation was in the 80s on arrival to the scene. She was given nebulized treatment and O2 saturation improved. Patient reports that she had gone to the bathroom and when she returned and she could no catch her breath. States that symptoms persisted so she called EMS. Denies any chest pain, neck pain, jaw pain, diaphoresis, lightheadedness, cough, or any new symptoms. In the ED, troponin was negative. Patient had lactic acid of 3.7. Anion gap was 16.4. WBC was 15.8. She was tachycardic and tachypneic. D-dimer was requested and came back elevated at 823. Rapid COVID-[address] Fry discussed patient's elevated d-dimer with patient's daughter in the ED. He indicates that he explained to them that patient needs to go to hospital for VQ scan due to elevated creatinine levels making CTA PE protocol contraindicated. Family declined transfer to [facility] and that they want patient to be DNR/DNI with no heroic measures. Impression and Plan: 1. Probable sepsis: Patient with heart rate of 100 and respiratory to 28 on presentation. Reported to have hypoxia at home. O2 saturation improved to 98% on 2 L of oxygen and after nebulized treatments.Follow-up on blood cultures ( no growth in 1 day) , urine culture <50K of gram negative roads -Will continue vancomycin and Rocephin -She is doing better and will need to continue IV antibiotics 2. Lactic acidosis: Likely due to sepsis and hypoxia -now normalized 3. Acute respiratory failure with hypoxia: Patient with O2 saturation of 80s at home. Reported shortness of breath that started last night. Troponin negative. No other symptoms indicating ACS. - continue Supplemental oxygen, if needed, she is off supplemental oxygen, Continue nebulized and inhaled treatments. 3. Elevated d-dimer: Concern for possible DVT/PE -Patient is anticoagulated on warfarin -Family declines transfer for VQ scan -Patient has CKD and unable to obtain CT with PE protocol 4. History of CHF Continue Lasix at 80 mg PO daily -Continue 1500 cc daily fluid restrictions - continue Low-sodium diet -Strict I's and O's recording 5. Diabetes mellitus -continue Diabetic diet -Sliding scale insulin hypoglycemia protocol 6. Hypertension: BP elevated will continue clonidine 0.2 mg BID and Metoprolol at 100 mg daily and re-start Amlodipine at 10 mg daily 7. 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 Hypokalemia: This is likely from diuresis and will continue potassium chloride at 10 meq daily -recheck potassium in AM DVT prophylaxis: Warfarin, pharmacy to dose GII prophylaxis: Diabetic diet Status: Per Dr. Fry, patient and family wants her to be DNR/DNI
[2020-03-11] MEDS ORDERED: Warfarin 2 MG Tab PO ONE (14:00)
[2020-03-11] MEDS: Ferrous Sulfate 325 MG Tab PO SCH (17:29)
[2020-03-11] MEDS: Fenofibrate Nanocrystallized 145 MG Tab PO SCH (20:53)
[2020-03-12] MEDS: cefTRIAXone 2 GM in Sodium Chloride 0.9% 100 ML IV SCH (05:38)
[2020-03-12] MEDS: Pantoprazole 40 MG Tab.CR PO SCH (05:38)
[2020-03-12 06:41] LABS: ANION GAP 10.1 mEq/L (7-13)
[2020-03-12] MEDS: Insulin Lispro 100 Units/ML 3 ML Vial SUBCUT SCH ×2 (09:03→11:49)
[2020-03-12] MEDS: Potassium Chloride 10 MEQ Tab.ER PO SCH (09:04)
[2020-03-12] MEDS: Aspirin 81 MG Tab.EC PO SCH (09:04)
[2020-03-12] MEDS: Calcium Carbonate/Vitamin D3 1250 MG-200 Unit Tab PO SCH (09:05)
[2020-03-12] MEDS: cloNIDine 0.1 MG Tab PO SCH (09:06)
[2020-03-12] MEDS: Furosemide 40 MG Tab PO SCH (09:06)
[2020-03-12] MEDS: Metoprolol Succinate 50 MG Tab.ER PO SCH (09:07)
[2020-03-12] MEDS: Hydrochlorothiazide 25 MG Tab PO SCH (09:07)
[2020-03-12] MEDS: Cyanocobalamin (Vitamin B12) 1,000 MCG Tab PO SCH (09:07)
[2020-03-12] MEDS: amLODIPine 5 MG Tab PO SCH (09:08)
[2020-03-12] MEDS: Docusate Sodium 100 MG Cap PO SCH (09:08)
[2020-03-12] MEDS: Folic Acid 1 MG Tab PO SCH (09:08)
--- NOTE | 2020-03-12 09:37 | PCM.DCSUM1 ---
Discharge Summary - Hospital Course Free Text/Narrative:: Patient is an 89-year-old female with medical history significant for PE on chronic anticoagulation, CVA, hypertension, sick sinus syndrome status post pacemaker placement, dyslipidemia, diabetes, and diastolic heart failure who was admitted for sepsis, Lactic acidosis, and acute respiratory failure with hypoxia. In the ED, troponin was negative. Patient had lactic acid of 3.7. Anion gap was 16.4. Whiteount was 15.8. She was tachycardic and tachypneic. D-dimer was requested and came back elevated at 823. Patient's neutrophil count was 88.4 with lymphocyte count of 6.9. COVID-[address] Fry discussed patient's elevated d-dimer with patient's daughter in the ED. He indicates that he explained to them that patient needs to go to hospital for VQ scan due to elevated creatinine levels making CT PE protocol contraindicated. Family declined transfer to [facility] and that they want patient to be DNR/DNI with no heroic measures. She was started on gentle fluid resuscitation. She was also started on vancomycin and ceftriaxone. Blood cultures remain negative. Lactic acidosis resolved. Urine culture was positive for less than 50,000 colonies of Proteus mirabilis. Patient improved clinically. Weakness resolved. She is being discharged home to continue ceftriaxone. She is to follow-up with PCP. KATHY Initial Comments: Patient is an 89-year-old female with medical history significant for PE on chronic anticoagulation, CVA, hypertension, sick sinus syndrome status post pacemaker placement, dyslipidemia, diabetes, and diastolic heart failure who presented to the ED with complaints of shortness of breath that started tonight. According to the ED provider, EMS reported that patient's O2 saturation was in the 80s on arrival to the scene. She was given nebulized treatment and O2 saturation improved. Patient reports that she had gone to the bathroom and when she returned she could no catch her breath. States that symptoms persisted so she called EMS. Denies any chest pain, neck pain, jaw pain, diaphoresis, lightheadedness, cough, or any new symptoms. Reports that she has right shoulder pain at baseline for which she uses cold compresses. States the right shoulder was swollen last night. Has been seen by a provider for this. In the ED, troponin was negative. Patient had lactic acid of 3.7. Anion gap was 16.4. Count was 15.8. She was tachycardic and tachypneic. D-dimer was requested and came back elevated at 823. Patient's neutrophil count was 88.4 with lymphocyte count of 6.9. COVID-[address] Fry discussed patient's elevated d-dimer with patient's daughter in the ED. He indicates that he explained to them that patient needs to go to hospital for VQ scan due to elevated creatinine levels making CT PE protocol contraindicated. Family declined transfer to [facility] and that they want patient to be DNR/DNI with no heroic measures. Diagnosis: Stroke: No - Discharge Data Discharge Date: 03/12/20 Discharge Disposition: Home, Self-Care 01 Condition: Fair - Referral to Home Health Primary Care Physician: PCP None - Discharge Diagnosis/Problem(s) (1) Anticoagulated on Coumadin SNOMED Code(s): 08230806 ICD Code: Z79.01 - COUNTY AGENT (CURRENT) USE OF ANTICOAGULANTS Status: Acute Current Visit: No (2) CHF (congestive heart failure) SNOMED Code(s): 98041734 ICD Code: I50.9 - HEART FAILURE, UNSPECIFIED Status: Acute Current Visit : No Qualifiers: Heart failure type: unspecified Heart failure chronicity: acute Qualified Code(s): I50.9 - Heart failure, unspecified (3) COPD (chronic obstructive pulmonary disease) SNOMED Code(s): 79499834 ICD Code: J44.9 - CHRONIC OBSTRUCTIVE PULMONARY DISEASE, UNSPECIFIED Status : Acute Current Visit: No Qualifiers: COPD type: unspecified COPD Qualified Code(s): J44.9 - Chronic obstructive pulmonary disease, unspecified (4) Elevated d-dimer SNOMED Code(s): 617136335 ICD Code: R79.89 - OTHER SPECIFIED ABNORMAL FINDINGS OF BLOOD CHEMISTRY Status: Acute Current Visit: No (5) History of CVA (cerebrovascular accident) SNOMED Code(s): 966231444 ICD Code: Z86.73 - PRSNL HX OF TIA (TIA), AND CEREB INFRC W/O RESID DEFICITS Status: Acute Current Visit: No (6) Hypokalemia SNOMED Code(s): 67853272 ICD Code: E87.6 - HYPOKALEMIA Status: Acute Current Visit: No (7) Respiratory failure SNOMED Code(s): 681691934 ICD Code: J96.90 - RESPIRATORY FAILURE, UNSP, UNSP W HYPOXIA OR HYPERCAPNIA Status: Acute Current Visit: No Qualifiers: Chronicity: acute Respiratory failure complication: hypercapnia Qualified Code(s): J96.02 - Acute respiratory failure with hypercapnia - Discharge Plan *PRESCRIPTION DRUG MONITORING PROGRAM REVIEWED*: No *COPY OF PRESCRIPTION DRUG MONITORING REPORT IN PATIENT ERWIN: No Prescriptions/Med Rec: Cefpodoxime [Vantin] 200 mg PO BID #4 tab Home Medications: Home Meds Fenofibrate 160 mg PO BEDTIME 04/20/15 [History] Metoprolol Succinate [Toprol XL] 100 mg PO DAILY 04/20/15 [History] metFORMIN [Glucophage] 1,000 mg PO BIDMEALS 04/20/15 [History] Pantoprazole [ProTONIX] 40 mg PO DAILY 03/24/16 [History] cloNIDine [Catapres] 0.2 mg PO BID 02/10/17 [History] Albuterol [Proventil HFA] 2 puff INH Q4H PRN 08/23/19 [History] Albuterol/Ipratropium [DuoNeb 3.0-0.5 MG/3 ML] 3 ml INH Q4H PRN 08/23/19 [ History] Aspirin [Adult Low Dose Aspirin EC] 81 mg PO DAILY 08/23/19 [History] Ciclopirox/Urea/Camph/Men/Euc [Ciclopirox 8% Treatment Kit] 34.6 ml TP DAILY 03/06 [History] Ferrous Sulfate 325 mg PO .SUPPER 08/23/19 [History] Folic Acid 1 mg PO DAILY 08/23/19 [History] Magnesium Oxide [Magnesium] 1 tab PO DAILY 08/23/19 [History] [place]-3 Acid Ethyl Esters [Lovaza] 2 gm PO BID 08/23/19 [History] Propylene Glycol/Peg 400 [Systane 0.3-0.4% Eye Drops] 1 drop EYEBOTH BID [History] hydroCHLOROthiazide [Hydrochlorothiazide] 25 mg PO DAILY 08/23/19 [History] Menthol/Methyl Salicylate [Icy Hot] 85 gm TOP QID PRN 11/27/19 [History] Calcium Carbonate/Vitamin D3 [Calcium 250+D] 1 each PO DAILY 03/09/20 [History] Cyanocobalamin (Vitamin B-12) [Vitamin B-12] 1,000 mcg PO DAILY 03/09/20 [ History] Docusate Sodium [Colace] 100 mg PO DAILY 03/09/20 [History] Furosemide [Lasix] 40 mg PO DAILY 03/09/20 [History] Potassium Chloride [Klor-Con 10] 20 meq PO 03/09/20 [History] Warfarin [Coumadin] 3 mg PO .4DAYSPERWEEK 03/09/20 [History] Warfarin [Coumadin] 5 mg PO .3DAYSPERWEEK 03/09/20 [History] amLODIPine Besylate [Amlodipine Besylate] 10 mg PO DAILY 03/09/20 [History] oxyCODONE HCl/Acetaminophen [Oxycodone-Acetaminophen 5-325] 1 tab PO BID [History] Cefpodoxime [Vantin] 200 mg PO BID #4 tab 03/12/20 [Rx] Forms: ED Department Discharge Referrals: PCP,None [Primary Care Provider] - - Discharge Summary/Plan Comment DC Time >30 min.: Yes - General Info Date of Service: 03/12/20 Admission Dx/Problem (Free Text: Admission Diagnosis/Problem Admission Diagnosis/Problem Likely Sepsis Subjective Update: No acute events overnight. Patient reports that she is feeling much better. Reports that she has family at home to offer support. Denies fevers, chills, nausea, vomiting, diarrhea, constipation, dysuria, hematuria, edema, or any new symptoms. - Patient Data Vitals - Most Recent: Last Vital Signs Temp 98.7 F 03/12/20 08:00 Pulse 87 03/12/20 09:07 Resp 18 03/12/20 08:00 BP 138/79 03/12/20 09:08 Pulse Ox 97 03/12/20 08:00 Weight - Most Recent: 146 lb I&O - Last 24 hours: Intake & Output 03/11/20 03/12/20 03/12/20 22:59 06:59 14:59 Intake Total 415 500 Output Total 2575 1600 Balance -2160 -1100 Lab Results - Last 24 hrs: Laboratory Results - last 24 hr 03/11/20 03/11/20 03/11/20 Range/Units 11:31 16:40 20:54 PT (9.0-12.0) SEC INR (0.9-1.2) Sodium (136-145) mmol/L Potassium (3.5-5.1) mmol/L Chloride (98-107) mmol/L Carbon Dioxide (21-32) mmol/L Anion Gap (7-13) mEq/L BUN (7-18) mg/dL Creatinine (0.55-1.02) mg/dL Est Cr Clr Drug Dosing mL/min Estimated GFR (MDRD) Glucose (74-99) mg/dL POC Glucose 194 H 156 H 257 H (83-110) mg/dl Calcium (8.5-10.1) mg/dL 03/12/20 03/12/20 03/12/20 Range/Units 05:52 05:52 07:44 PT 12.0 (9.0-12.0) SEC INR 1.3 H (0.9-1.2) Sodium 138 (136-145) mmol/L Potassium 4.1 (3.5-5.1) mmol/L Chloride 98 (98-107) mmol/L Carbon Dioxide 34 H (21-32) mmol/L Anion Gap 10.1 (7-13) mEq/L BUN 30 H (7-18) mg/dL Creatinine 1.29 H (0.55-1.02) mg/dL Est Cr Clr Drug Dosing 22.75 mL/min Estimated GFR (MDRD) 39 Glucose 164 H (74-99) mg/dL POC Glucose 173 H (83-110) mg/dl Calcium 10.3 H (8.5-10.1) mg/dL MICHAEL Results - Last 24 hrs: Microbiology 03/09/20 00:31 Aerobic Blood Culture - Preliminary Blood NO GROWTH AFTER 3 DAYS Anaerobic Blood Culture - Preliminary NO GROWTH AFTER 3 DAYS 03/09/20 01:53 Urine Culture - Final Urine, Voided Proteus Mirabilis Med Orders - Current: Current Medications Albuterol (Proventil Hfa) 0 gm INH Q4H PRN PRN Reason: Wheezing Albuterol/Ipratropium (Duoneb 3.0-0.5 Mg/3 Ml) 3 ml INH Q4H PRN PRN Reason: Wheezing Amlodipine Besylate (Norvasc) 10 mg PO DAILY [facility] Last Admin: 03/12/20 09:08 Dose: 10 mg Artificial Tears (Refresh Celluvisc) 0 each EYEBOTH ASDIRECTED PRN PRN Reason: Dry Eyes Aspirin (Halfprin) 81 mg PO DAILY [facility] Last Admin: 03/12/20 09:04 Dose: 81 mg Calcium Carbonate (Calcium Carbonate/Vitamin D 1250 Mg-200 Unit) 1 tab PO DAILY [facility] Last Admin: 03/12/20 09:05 Dose: 1 tab Clonidine HCl (Catapres) 0.2 mg PO BID [facility] Last Admin: 03/12/20 09:06 Dose: 0.2 mg Cyanocobalamin (Vitamin B12) 1,000 mcg PO DAILY [facility] Last Admin: 03/12/20 09:07 Dose: 1,000 mcg Dextrose/Water (Dextrose 50% In Water) 25 ml IVPUSH ASDIRECTED PRN PRN Reason: Hypoglycemia Docusate Sodium (Colace) 100 mg PO DAILY [facility] Last Admin: 03/12/20 09:08 Dose: 100 mg Fenofibrate (Tricor) 145 mg PO BEDTIME [facility] Last Admin: 03/11/20 20:53 Dose: 145 mg Ferrous Sulfate (Ferrous Sulfate) 325 mg PO PCDINNER [facility] Last Admin: 03/11/20 17:29 Dose: 325 mg Folic Acid (Folic Acid) 1 mg PO DAILY [facility] Last Admin: 03/12/20 09:08 Dose: 1 mg Furosemide (Lasix) 80 mg PO DAILY [facility] Last Admin: 03/12/20 09:06 Dose: 80 mg Glucagon (Glucagen) 1 mg IM ONETIME PRN PRN Reason: Hypoglycemia Hydrochlorothiazide (Hydrochlorothiazide) 25 mg PO DAILY [facility] Last Admin: 03/12/20 09:07 Dose: 25 mg Vancomycin HCl 1 gm/ Sodium (Chloride) 250 mls @ 166.667 mls/hr IV Q24H [facility] Last Admin: 03/12/20 09:08 Dose: 166.667 mls/hr Ceftriaxone Sodium 2 gm/ (Sodium Chloride) 100 mls @ 200 mls/hr IV Q24H [facility] Last Admin: 03/12/20 05:38 Dose: 200 mls/hr Insulin Human Lispro (Humalog) 0 unit SUBCUT ACBED [facility]; Protocol Last Admin: 03/12/20 09:03 Dose: 1 unit Magnesium Oxide (Magnesium Oxide) 375 mg PO DAILY [facility] Last Admin: 03/12/20 09:05 Dose: 375 mg Methyl Salicylate (Icy Hot Cream) 85 gm TOP QID PRN PRN Reason: Pain Last Admin: 03/11/20 23:25 Dose: 1 applic Metoprolol Succinate (Toprol Xl) 100 mg PO DAILY [facility] Last Admin: 03/12/20 09:07 Dose: 100 mg Non-Formulary Medication (Ciclopirox/Urea/Camph/Men/Euc [Ciclopirox 8% Treatment Kit]) 34.6 ml TP DAILY [facility] Non-Formulary Medication ([place]-3 Acid Ethyl Esters [Lovaza]) 2 gm PO BID [facility] Non-Formulary Medication (Propylene Glycol/Peg 400 [Systane 0.3-0.4% Eye Drops] ) 1 drop EYEBOTH BID [facility] Ondansetron HCl (Zofran Odt) 4 mg PO Q6H PRN PRN Reason: nausea, able to take PO Ondansetron HCl (Zofran) 4 mg IVPUSH Q6H PRN PRN Reason: Nausea/Vomiting Oxycodone/Acetaminophen (Percocet 325-5 Mg) 1 tab PO Q6H PRN PRN Reason: Pain Last Admin: 03/11/20 21:32 Dose: 1 tab Pantoprazole Sodium (Protonix) 40 mg PO ACBREAKFAST [facility] Last Admin: 03/12/20 05:38 Dose: 40 mg Potassium Chloride (Klor-Con 10) 10 meq PO DAILY [facility] Last Admin: 03/12/20 09:04 Dose: 10 meq Senna/Docusate Sodium (Senna Plus) 1 tab PO BEDTIME PRN PRN Reason: Constipation Vancomycin HCl (Pharmacy To Dose - Vancomycin) 1 dose .XX ASDIRECTED [facility] Warfarin Sodium (Pharmacy To Dose - Warfarin) 1 dose .XX ASDIRECTED [facility] Warfarin Sodium (Coumadin) 6 mg PO ONETIME ONE Stop: 03/12/20 14:01 Discontinued Medications Sodium Chloride (Normal Saline) 1,000 mls @ 75 mls/hr IV ASDIRECTED [facility] Last Admin: 03/09/20 04:40 Dose: 75 mls/hr Piperacillin Sod/Tazobactam (Sod 3.375 gm/ Sodium Chloride) 100 mls @ 200 mls/ hr IV Q6H [facility] Last Admin: 03/09/20 05:35 Dose: Not Given Ceftriaxone Sodium 2 gm/ (Sodium Chloride) 100 mls @ 200 mls/hr IV Q24H [facility] Last Admin: 03/09/20 05:58 Dose: 200 mls/hr Vancomycin HCl 1 gm/ Sodium (Chloride) 250 mls @ 166.667 mls/hr IV Q24H [facility] Last Admin: 03/09/20 07:52 Dose: 166.667 mls/hr No Warfarin Dose (Today) 0 each .XX ONETIME ONE Stop: 03/09/20 14:01 Last Admin: 03/09/20 14:53 Dose: Not Given Potassium Chloride (Klor-Con 10) 20 meq PO ONETIME ONE Stop: 03/10/20 10:21 Last Admin: 03/10/20 10:42 Dose: 20 meq Warfarin Sodium (Coumadin) 3 mg PO ONETIME ONE Stop: 03/10/20 14:01 Last Admin: 03/10/20 13:37 Dose: 3 mg Warfarin Sodium (Coumadin) 6 mg PO ONETIME ONE Stop: 03/11/20 14:01 Last Admin: 03/11/20 13:16 Dose: 6 mg - Exam General: Reports: Alert, Oriented, Cooperative, No Acute Distress HEENT: Reports: Pupils Equal, Pupils Reactive, Mucous Membr. Moist/[place] Neck: Reports: Supple, Trachea Midline Lungs: Reports: Clear to Auscultation, Normal Respiratory Effort Cardiovascular: Reports: Regular Rate, Regular Rhythm, No Murmurs GI/Abdominal Exam: Normal Bowel Sounds, Soft, Non-Tender, No Distention Extremities: Normal Inspection, Normal Range of Motion, No Pedal Edema Skin: Reports: Warm, Dry, Intact Neurological: Reports: No New Focal Deficit Psy/Mental Status: Reports: Alert, Normal Mood *Q Meaningful Use (DIS) - VTE *Q VTE Anticoagulation Contraindications: Alternative [place] Request PT
[2020-03-12 12:07] VITALS: BP 113/54; PULSE 72
[2020-03-12] MEDS ORDERED: Warfarin 2 MG Tab PO ONE (14:00)
== END 2020-03-12 13:00 | disposition home or self-care (01) | DRG 871 ==
LOC: DL.ED 23:56 → DL.MS 03-09 04:28
PROVIDERS: ADMIT Internal Medicine; ATTEND Internal Medicine
DX: J44.1 Chronic obstructive pulmonary disease with (acute) exacerbation (principal); R79.89 Other specified abnormal findings of blood chemistry; N39.0 Urinary tract infection, site not specified; R31.9 Hematuria, unspecified; I11.0 Hypertensive heart disease with heart failure; I50.9 Heart failure, unspecified; H54.8 Legal blindness, as defined in USA; A41.9 Sepsis, unspecified organism; Z86.718 Personal history of other venous thrombosis and embolism; J96.01 Acute respiratory failure with hypoxia; J96.02 Acute respiratory failure with hypercapnia; E87.2 Acidosis; I50.32 Chronic diastolic (congestive) heart failure; I13.0 Hypertensive heart and chronic kidney disease with heart failure and stage 1 through stage 4 chronic kidney disease, or unspecified chronic kidney disease; Z66 Do not resuscitate; M19.90 Unspecified osteoarthritis, unspecified site; E11.9 Type 2 diabetes mellitus without complications; I49.5 Sick sinus syndrome; Z90.49 Acquired absence of other specified parts of digestive tract; Z88.6 Allergy status to analgesic agent; E78.5 Hyperlipidemia, unspecified; J44.9 Chronic obstructive pulmonary disease, unspecified; N18.3 Chronic kidney disease, stage 3 (moderate); E87.6 Hypokalemia; E11.22 Type 2 diabetes mellitus with diabetic chronic kidney disease; E78.1 Pure hyperglyceridemia; H54.7 Unspecified visual loss; I48.91 Unspecified atrial fibrillation; E78.00 Pure hypercholesterolemia, unspecified; K21.9 Gastro-esophageal reflux disease without esophagitis; R33.9 Retention of urine, unspecified; R32 Unspecified urinary incontinence; G89.29 Other chronic pain; M54.9 Dorsalgia, unspecified; Z20.828 Contact with and (suspected) exposure to other viral communicable diseases; R79.1 Abnormal coagulation profile; M19.011 Primary osteoarthritis, right shoulder; Z79.82 Long term (current) use of aspirin; Z79.899 Other long term (current) drug therapy; Z79.84 Long term (current) use of oral hypoglycemic drugs; Z88.1 Allergy status to other antibiotic agents; Z86.711 Personal history of pulmonary embolism; Z79.01 Long term (current) use of anticoagulants; Z86.73 Personal history of transient ischemic attack (TIA), and cerebral infarction without residual deficits; Z95.0 Presence of cardiac pacemaker; Z88.5 Allergy status to narcotic agent; Z88.8 Allergy status to other drugs, medicaments and biological substances; Z87.440 Personal history of urinary (tract) infections; Z98.890 Other specified postprocedural states
CPT/HCPCS: 36415; 71045; 80053; 81001; 83605; 83880; 84484; 85025; 85379; 85610; 87040; 87086; 87088; 87186; 93005; 99285; U0002; 51702; 71250; 80048; 82962; 85027; 99284; A9270-GY; J0696; J1815-GY; J3370; J7030; J7050

== ENCOUNTER 2020-03-14 00:35 | Emergency (ER) | payer MEDICARE, BC ==
[~2020-03-14 00:35] MED LIST changes: +Sodium Chloride 0.9% 1,000 ML IV ONE; -Sodium Chloride 0.9% 10 ML Syringe FLUSH PRN
[2020-03-14 00:56] VITALS: BP 136/47; PULSE 83
[2020-03-14 01:28] LABS: ANION GAP 9.4 mEq/L (7-13); CHLORIDE,CL 99 mmol/L (98-107); SODIUM,NA 139 mmol/L (136-145)
--- NOTE | 2020-03-14 04:28 | EDM.PDOC ---
ED HPI GENERAL MEDICAL PROBLEM - General Chief Complaint: Neuro Symptoms/Deficits Stated Complaint: AMBULANCE Time Seen by Provider: 03/14/20 00:43 Source of Information: Reports: Patient, EMS, Family, RN History Limitations: Reports: No Limitations - History of Present Illness INITIAL COMMENTS - FREE TEXT/NARRATIVE: ED via [facility] with report of left sided weakness greater than usual and slurred speech. 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 Last seen "normal at 10pm found by family at midnight watching tv and noted worsening of weakness to upper and lower left side, speech slurred. Patient reported noticing decreased vision around 11-1130 tonight. No recent falls or trauma. Hospitalized for UTI march 09- for UTI. Lives at home with family. [place] transfer with assist , able to bear weight on left. Onset: Today, Sudden Location: Reports: Upper Extremity, Left, Lower Extremity, Left - Related Data Allergies Allergy/AdvReac Type Severity Reaction Status Date / Time amoxicillin Allergy Hives Verified 03/09/20 05:07 ezetimibe Allergy Cannot Verified 03/09/20 05:07 Remember morphine Allergy Confusion Verified 03/09/20 05:07 moxifloxacin Allergy Cannot Verified 03/09/20 05:07 Remember naproxen [From Aleve] Allergy Cannot Verified 03/09/20 05:07 Remember Vmhvipp-Egn-Kof Reductase Allergy Muscle Verified 03/09/20 05:07 Inhibitor Aches sulindac Allergy Cannot Verified 03/09/20 05:07 Remember Tetracyclines Allergy Cannot Verified 03/09/20 05:07 Remember Home Meds: Home Meds Fenofibrate 160 mg PO BEDTIME 04/20/15 [History] Metoprolol Succinate [Toprol XL] 100 mg PO DAILY 04/20/15 [History] metFORMIN [Glucophage] 1,000 mg PO BIDMEALS 04/20/15 [History] Pantoprazole [ProTONIX] 40 mg PO DAILY 03/24/16 [History] cloNIDine [Catapres] 0.2 mg PO BID 02/10/17 [History] Albuterol [Proventil HFA] 2 puff INH Q4H PRN 08/23/19 [History] Albuterol/Ipratropium [DuoNeb 3.0-0.5 MG/3 ML] 3 ml INH Q4H PRN 08/23/19 [ History] Aspirin [Adult Low Dose Aspirin EC] 81 mg PO DAILY 08/23/19 [History] Ciclopirox/Urea/Camph/Men/Euc [Ciclopirox 8% Treatment Kit] 34.6 ml TP DAILY 03/06 [History] Ferrous Sulfate 325 mg PO .SUPPER 08/23/19 [History] Folic Acid 1 mg PO DAILY 08/23/19 [History] Magnesium Oxide [Magnesium] 1 tab PO DAILY 08/23/19 [History] Purcell-3 Acid Ethyl Esters [Lovaza] 2 gm PO BID 08/23/19 [History] Propylene Glycol/Peg 400 [Systane 0.3-0.4% Eye Drops] 1 drop EYEBOTH BID [History] hydroCHLOROthiazide [Hydrochlorothiazide] 25 mg PO DAILY 08/23/19 [History] Menthol/Methyl Salicylate [Icy Hot] 85 gm TOP QID PRN 11/27/19 [History] Calcium Carbonate/Vitamin D3 [Calcium 250+D] 1 each PO DAILY 03/09/20 [History] Cyanocobalamin (Vitamin B-12) [Vitamin B-12] 1,000 mcg PO DAILY 03/09/20 [ History] Docusate Sodium [Colace] 100 mg PO DAILY 03/09/20 [History] Furosemide [Lasix] 40 mg PO DAILY 03/09/20 [History] Potassium Chloride [Klor-Con 10] 20 meq PO 03/09/20 [History] Warfarin [Coumadin] 3 mg PO .4DAYSPERWEEK 03/09/20 [History] Warfarin [Coumadin] 5 mg PO .3DAYSPERWEEK 03/09/20 [History] amLODIPine Besylate [Amlodipine Besylate] 10 mg PO DAILY 03/09/20 [History] oxyCODONE HCl/Acetaminophen [Oxycodone-Acetaminophen 5-325] 1 tab PO BID [History] Cefpodoxime [Vantin] 200 mg PO BID #4 tab 03/12/20 [Rx] Past Medical History - Past Health History Medical/Surgical History: Denies Medical/Surgical History HEENT History: Reports: Impaired Vision Other HEENT History: wears glasses, is legally blind Cardiovascular History: Reports: Afib, Blood Clots/VTE/DVT, Heart Failure, High Cholesterol, Hypertension, Pacemaker Other Cardiovascular History: pauses in heart beat Respiratory History: Reports: COPD, PE, SOB, Other (See Below) Other Respiratory History: recent intubation Gastrointestinal History: Reports: GERD Other Gastrointestinal History: prolapsed rectum Genitourinary History: Reports: Retention, Urinary, Urinary Incontinence, UTI, Recurrent Other Genitourinary History: wears protection CHARGE RN History: Reports: Musculoskeletal History: Reports: Back Pain, Chronic, Osteoarthritis, Other ( See Below) Other Musculoskeletal History: degenerative disc disease Neurological History: Reports: CVA, Headaches, Chronic, Other (See Below) Other Neuro History: cva in 2010 Psychiatric History: Reports: None Endocrine/Metabolic History: Reports: Diabetes, Type II Hematologic History: Reports: None Immunologic History: Reports: None Oncologic (Cancer) History: Reports: None Dermatologic History: Reports: None - Infectious Disease History Infectious Disease History: Reports: Chicken Pox, Measles - Past Surgical History Head Surgeries/Procedures: Reports: None HEENT Surgical History: Reports: None Cardiovascular Surgical History: Reports: Pacer Respiratory Surgical History: Reports: None GI Surgical History: Reports: Other (See Below) Other GI Surgeries/Procedures: Bowel resection Female Surgical History: Reports: Other (See Below) Other Female Surgeries/Procedures: Bladder surgery Musculoskeletal Surgical History: Reports: None Social & Family History - Family History Family Medical History: Noncontributory - Tobacco Use Smoking Status *Q: Never Smoker Second Hand Smoke Exposure: No - Caffeine Use Caffeine Use: Reports: Coffee - Recreational Drug Use Recreational Drug Use: No - Living Situation & Occupation Living situation: Reports: , Alone Occupation: Retired ED ROS GENERAL - Review of Systems Review Of Systems: Comprehensive ROS is negative, except as noted in HPI. ED EXAM, NEURO - Physical Exam Exam: See Below Exam Limited By: No Limitations General Appearance: Alert, Mild Distress Eye Exam: Bilateral Eye: EOMI, Vision Changes (limited visual field to central bilateral) Ears: Normal External Exam, Hearing Loss (mild) Nose: Normal Inspection Throat/Mouth: Normal Voice, No Airway Compromise (left sided droop), Other Head Exam: Atraumatic, Normocephalic Neck: Normal Inspection Respiratory/Chest: No Respiratory Distress, Lungs Clear, Normal Breath Sounds Cardiovascular: Normal Peripheral Pulses, Regular Rate, Rhythm, Other ( compression home bilaterally) Rectal (Female) Exam: Hemorrhoids, Other (light brown frim stool). No: Black Stool, Bloody Stool Neurological: Alert, Normal Mood/Affect, Oriented x 3, Abnormal Motor, Other ( left upper weak upper gross motor, no hand grasp, left leg flaccid, list to left side. NIH 10) Course - Vital Signs Last Recorded V/S: Last Vital Signs Temp 97.8 F 03/14/20 00:43 Pulse 83 03/14/20 00:43 Resp 14 03/14/20 00:43 BP 136/47 L 03/14/20 00:43 Pulse Ox 97 03/14/20 00:43 - Orders/Labs/Meds Orders: Active Orders 24 hr Category Date Time Status Blood Glucose Check, Bedside [RC] ONETIME Care 03/14/20 00:28 Active EKG Documentation Completion [RC] STAT Care 03/14/20 00:28 Active CXR [Chest 1V Frontal] [CR] Urgent Exams 03/14/20 00:45 Taken Head wo Cont [CT] Urgent Exams 03/14/20 00:26 Taken Labs: Laboratory Tests 03/14/20 03/14/20 03/14/20 Range/Units 00:57 00:57 00:57 WBC 6.3 (5.0-10.0) 10^3/uL RBC 3.97 L (4.2-5.4) 10^6/uL Hgb 9.7 L (12.0-16.0) g/dL Hct 30.3 L (37.0-47.0) % MCV 76.3 L (80-100) fL MCH 24.4 L (27.0-34.0) pg MCHC 32.0 L (33.0-35.0) g/dL Plt Count 278 (150-450) 10^3/uL Neut % (Auto) 49.7 (42.2-75.2) % Lymph % (Auto) 30.3 (20.5-50.1) % [place] % (Auto) 10.0 H (2-8) % Eos % (Auto) 9.2 H (1.0-3.0) % Baso % (Auto) 0.8 (0.0-1.0) % PT 11.5 (9.0-12.0) SEC INR 1.2 (0.9-1.2) Sodium 139 (136-145) mmol/L Potassium 3.4 L (3.5-5.1) mmol/L Chloride 99 (98-107) mmol/L Carbon Dioxide 34 H (21-32) mmol/L Anion Gap 9.4 (7-13) mEq/L BUN 37 H (7-18) mg/dL Creatinine 1.47 H (0.55-1.02) mg/dL Est Cr Clr Drug Dosing 20.92 mL/min Estimated GFR (MDRD) 34 BUN/Creatinine Ratio 25.2 (No establ ref range) Glucose 183 H (74-99) mg/dL Lactic Acid (0.4-2.0) mmol/L Calcium 9.8 (8.5-10.1) mg/dL Magnesium 1.8 (1.8-2.4) mg/dL Total Bilirubin 0.3 (0.2-1.0) mg/dL AST 27 (15-37) U/L ALT 31 (14-59) U/L Alkaline Phosphatase 47 (46-116) U/L CK-MB (CK-2) (0.0-3.6) ng/mL Troponin I < 0.017 (0.000-0.056) ng/mL C-Reactive Protein 1.8 H (0.0-0.9) mg/dL Total Protein 6.7 (6.4-8.2) g/dL Albumin 3.2 L (3.4-5.0) g/dL Globulin 3.5 Albumin/Globulin Ratio 0.91 Urine Color (YELLOW) Urine Appearance (CLEAR) Urine pH (5.0-9.0) Ur Specific Hitchcock (1.005-1.030) Urine Protein (NEGATIVE) Urine Glucose (UA) (NEGATIVE) Urine Ketones (NEGATIVE) Urine Occult Blood (NEGATIVE) Urine Nitrite (NEGATIVE) Urine Bilirubin (NEGATIVE) Urine Urobilinogen (0.2-1.0) mg/dL Ur Leukocyte Esterase (NEGATIVE) Urine RBC /HPF Urine WBC (0-5/HPF) /HPF Ur Epithelial Cells (NOT SEEN) /HPF Amorphous Sediment (NOT SEEN) /HPF Urine Bacteria (0-FEW/HPF) /HPF Urine Mucus (NOT SEEN) /LPF Digoxin (0.9-2.0) ng/mL Ethyl Alcohol < 3 (0) mg/dL 03/14/20 03/14/20 03/14/20 Range/Units 00:57 00:57 00:57 WBC (5.0-10.0) 10^3/uL RBC (4.2-5.4) 10^6/uL Hgb (12.0-16.0) g/dL Hct (37.0-47.0) % MCV (80-100) fL MCH (27.0-34.0) pg MCHC (33.0-35.0) g/dL Plt Count (150-450) 10^3/uL Neut % (Auto) (42.2-75.2) % Lymph % (Auto) (20.5-50.1) % [place] % (Auto) (2-8) % Eos % (Auto) (1.0-3.0) % Baso % (Auto) (0.0-1.0) % PT (9.0-12.0) SEC INR (0.9-1.2) Sodium (136-145) mmol/L Potassium (3.5-5.1) mmol/L Chloride (98-107) mmol/L Carbon Dioxide (21-32) mmol/L Anion Gap (7-13) mEq/L BUN (7-18) mg/dL Creatinine (0.55-1.02) mg/dL Est Cr Clr Drug Dosing mL/min Estimated GFR (MDRD) BUN/Creatinine Ratio (No establ ref range) Glucose (74-99) mg/dL Lactic Acid 1.9 (0.4-2.0) mmol/L Calcium (8.5-10.1) mg/dL Magnesium (1.8-2.4) mg/dL Total Bilirubin (0.2-1.0) mg/dL AST (15-37) U/L ALT (14-59) U/L Alkaline Phosphatase (46-116) U/L CK-MB (CK-2) 0.8 (0.0-3.6) ng/mL Troponin I (0.000-0.056) ng/mL C-Reactive Protein (0.0-0.9) mg/dL Total Protein (6.4-8.2) g/dL Albumin (3.4-5.0) g/dL Globulin Albumin/Globulin Ratio Urine Color (YELLOW) Urine Appearance (CLEAR) Urine pH (5.0-9.0) Ur Specific Hitchcock (1.005-1.030) Urine Protein (NEGATIVE) Urine Glucose (UA) (NEGATIVE) Urine Ketones (NEGATIVE) Urine Occult Blood (NEGATIVE) Urine Nitrite (NEGATIVE) Urine Bilirubin (NEGATIVE) Urine Urobilinogen (0.2-1.0) mg/dL Ur Leukocyte Esterase (NEGATIVE) Urine RBC /HPF Urine WBC (0-5/HPF) /HPF Ur Epithelial Cells (NOT SEEN) /HPF Amorphous Sediment (NOT SEEN) /HPF Urine Bacteria (0-FEW/HPF) /HPF Urine Mucus (NOT SEEN) /LPF Digoxin < 0.2 L (0.9-2.0) ng/mL Ethyl Alcohol (0) mg/dL 03/14/20 Range/Units 01:10 WBC (5.0-10.0) 10^3/uL RBC (4.2-5.4) 10^6/uL Hgb (12.0-16.0) g/dL Hct (37.0-47.0) % MCV (80-100) fL MCH (27.0-34.0) pg MCHC (33.0-35.0) g/dL Plt Count (150-450) 10^3/uL Neut % (Auto) (42.2-75.2) % Lymph % (Auto) (20.5-50.1) % [place] % (Auto) (2-8) % Eos % (Auto) (1.0-3.0) % Baso % (Auto) (0.0-1.0) % PT (9.0-12.0) SEC INR (0.9-1.2) Sodium (136-145) mmol/L Potassium (3.5-5.1) mmol/L Chloride (98-107) mmol/L Carbon Dioxide (21-32) mmol/L Anion Gap (7-13) mEq/L BUN (7-18) mg/dL Creatinine (0.55-1.02) mg/dL Est Cr Clr Drug Dosing mL/min Estimated GFR (MDRD) BUN/Creatinine Ratio (No establ ref range) Glucose (74-99) mg/dL Lactic Acid (0.4-2.0) mmol/L Calcium (8.5-10.1) mg/dL Magnesium (1.8-2.4) mg/dL Total Bilirubin (0.2-1.0) mg/dL AST (15-37) U/L ALT (14-59) U/L Alkaline Phosphatase (46-116) U/L CK-MB (CK-2) (0.0-3.6) ng/mL Troponin I (0.000-0.056) ng/mL C-Reactive Protein (0.0-0.9) mg/dL Total Protein (6.4-8.2) g/dL Albumin (3.4-5.0) g/dL Globulin Albumin/Globulin Ratio Urine Color Light yellow (YELLOW) Urine Appearance Slightly cloudy (CLEAR) Urine pH 7.5 (5.0-9.0) Ur Specific Hitchcock 1.020 (1.005-1.030) Urine Protein 30 H (NEGATIVE) Urine Glucose (UA) Negative (NEGATIVE) Urine Ketones Negative (NEGATIVE) Urine Occult Blood Trace-intact H (NEGATIVE) Urine Nitrite Negative (NEGATIVE) Urine Bilirubin Negative (NEGATIVE) Urine Urobilinogen 0.2 (0.2-1.0) mg/dL Ur Leukocyte Esterase Negative (NEGATIVE) Urine RBC 0-5 /HPF Urine WBC 0-5 (0-5/HPF) /HPF Ur Epithelial Cells Few (NOT SEEN) /HPF Amorphous Sediment Rare (NOT SEEN) /HPF Urine Bacteria Rare (0-FEW/HPF) /HPF Urine Mucus Few H (NOT SEEN) /LPF Digoxin (0.9-2.0) ng/mL Ethyl Alcohol (0) mg/dL Meds: Medications Discontinued Medications Generic Name Dose Route Start Last Admin Trade Name Adeel PRN Reason Stop Dose Admin Alteplase, Recombinant 61.398 mg 03/14/20 01:52 Activase 0.9 mg/kg (61.398 mg) 03/14/20 01:53 IV .BOLUS ONE Alteplase, Recombinant 6 mg 03/14/20 02:09 03/14/20 02:12 Activase IV 03/14/20 02:10 6 mg .INFUSION ONE Administration Alteplase, Recombinant 55.3 mg 03/14/20 02:10 03/14/20 02:13 Activase IV 03/14/20 02:11 55.3 mg ASDIRECTED ONE Administration Sodium Chloride 1,000 mls @ 125 mls/hr 03/14/20 00:27 03/14/20 00:43 Normal Saline IV 03/14/20 08:26 125 mls/hr .BOLUS ONE Administration - Radiology Interpretation Free Text/Narrative:: [facility] [place] [facility] Final Radiology Report Call: [phone] assistance Online chat: [email or web address] Name: SANGEETHA BAZZI Age: 89Years F Date: 03/14/2020 SSN: -- : [id number] Study: CT HEAD WO Requesting Physician: CALE BECKMAN Images: 151 Addl Studies: Provided Clinical History: Contrast: Without Contrast Medium: Contrast Amount: Contrast Method: Page 1 of 2 PROCEDURE INFORMATION: Exam: CT Head Without Contrast Exam date and time: 03/14/2020 12:43 AM Age: 89 years old Clinical indication: Other: Stroke symptoms TECHNIQUE: Imaging protocol: Computed tomography of the head without contrast. Radiation optimization: All CT scans at this facility use at least one of these dose optimization techniques: automated exposure control; mA and/or kV adjustment per patient size (includes targeted exams where dose is matched to clinical indication); or iterative reconstruction. Other technique: STROKE PROTOCOL was implemented. COMPARISON: CT Head wo Cont 08/03/2019 12:13 AM FINDINGS: There is motion artifact. There is a small focus of encephalomalacia in the superior right frontal subcortical white matter. There is no evidence for intracranial hemorrhage, space occupying lesions or mass effect. The ventricles are normal in contour. There is mild diffuse atrophy. There is mild periventricular white matter small vessel disease. There are lacunae in both basal ganglia. There is a lacune in the left cerebellum. Renee-white differentiation is preserved. There is an incidental partially empty sella. The exam is unchanged from the prior exam. IMPRESSION: No acute intracranial abnormality. ASSESSMENT: ASPECTS ([place] Stroke Program Early CT Score) is 10. SANGEETHA BAZZI | Final Radiology Report CONFIDENTIALITY STATEMENT This report is intended only for use by the referring physician, and only in accordance with law. If you received this in error, call [phone]. Page 2 of 2 Thank you for allowing us to participate in the care of your patient. Dictated and Authenticated by: Waqar Powell MD 03/14/2020 12:54 AM Central Time ([place] & [place]) [facility] Final Radiology Report Call: [phone] assistance Online chat: [email or web address] Name: SANGEETHA BAZZI Age: 89Years F Date: 03/14/2020 SSN: -- : [id number] Study: XR CHEST 1 VIEW FRONTAL Requesting Physician: CALE BECKMAN Images: 1 Addl Studies: Provided Clinical History: Contrast: Contrast Medium: Contrast Amount: Contrast Method: CONFIDENTIALITY STATEMENT This report is intended only for use by the referring physician, and only in accordance with law. If you received this in error, call [phone]. Page 1 of 1 PROCEDURE INFORMATION: Exam: XR Chest, 1 View Exam date and time: 03/14/2020 1:00 AM Age: 89 years old Clinical indication: Other: Hypertension TECHNIQUE: Imaging protocol: XR of the chest Views: 1 view. COMPARISON: CR Chest 1V Frontal 03/09/2020 1:27 AM FINDINGS: The patient is significantly rotated. The exam appears unchanged from the prior exam. The lungs remain clear except for discoid atelectasis or scarring at the left base. IMPRESSION: No acute findings. Thank you for allowing us to participate in the care of your patient. Dictated and Authenticated by: Waqar Powell MD 03/14/2020 1:23 AM Central Time ([place] & [place]) 03/14/20 04:41 - Re-Assessments/Exams Free Text/Narrative Re-Assessment/Exam: TC Tony[facility] Dr Soto and Dr Carver, recommend consult [facility] as patient within timeframe for TPA. Dr Jones and Dr Cruz [facility] accepting. Confirm with family desire for transfer and TPA. (daughter Herlinda). Risk of bleeding and worsening of condition . Agree to proceed. Patient questioned desire stated she would leave to family to decide. Proceed with TPA, Initial bolus and infusion initiated. Tx via [facility] fixed wing. Able to wiggle left foot, mild left hand grasp, VS stable. Pupil 33m right , 2mm left. speech thick . continues to lest left despite frequent repositioning. . Departure - Departure Time of Disposition: 02:45 Disposition: DC/Tfer to Acute Hospital 02 Condition: Undetermined Clinical Impression: CVA (cerebral vascular accident) Qualifiers: CVA mechanism: unspecified Qualified Code(s): I63.9 - Cerebral infarction, unspecified - Discharge Information *PRESCRIPTION DRUG MONITORING PROGRAM REVIEWED*: No *COPY OF PRESCRIPTION DRUG MONITORING REPORT IN PATIENT ERWIN: No Referrals: PCP,None [Primary Care Provider] - Forms: ED Department Discharge Sepsis Event Note - Evaluation Sepsis Screening Result: No Definite Risk - Focused Exam Vital Signs: Vital Signs Temp Pulse Resp BP Pulse Ox 03/14/20 00:43 97.8 F 83 14 136/47 L 97 Date Exam was Performed: 03/14/20 Time Exam was Performed: 04:19 - My Orders Last 24 Hours: My Active Orders 03/14/20 00:26 Head wo Cont [CT] Urgent 03/14/20 00:28 Blood Glucose Check, Bedside [RC] ONETIME EKG Documentation Completion [RC] STAT 03/14/20 00:45 CXR [Chest 1V Frontal] [CR] Urgent - Assessment/Plan Last 24 Hours: My Active Orders 03/14/20 00:26 Head wo Cont [CT] Urgent 03/14/20 00:28 Blood Glucose Check, Bedside [RC] ONETIME EKG Documentation Completion [RC] STAT 03/14/20 00:45 CXR [Chest 1V Frontal] [CR] Urgent
== END 2020-03-14 02:45 ==
LOC: DL.ED 00:35
DX: I63.9 Cerebral infarction, unspecified (principal); I48.91 Unspecified atrial fibrillation; E78.00 Pure hypercholesterolemia, unspecified; I11.0 Hypertensive heart disease with heart failure; I50.9 Heart failure, unspecified; J44.9 Chronic obstructive pulmonary disease, unspecified; K21.9 Gastro-esophageal reflux disease without esophagitis; E11.9 Type 2 diabetes mellitus without complications; M19.90 Unspecified osteoarthritis, unspecified site; Z86.73 Personal history of transient ischemic attack (TIA), and cerebral infarction without residual deficits; Z79.82 Long term (current) use of aspirin; Z79.01 Long term (current) use of anticoagulants; Z79.899 Other long term (current) drug therapy; Z79.84 Long term (current) use of oral hypoglycemic drugs; Z88.1 Allergy status to other antibiotic agents; Z88.5 Allergy status to narcotic agent; Z88.6 Allergy status to analgesic agent; Z88.8 Allergy status to other drugs, medicaments and biological substances; Z86.711 Personal history of pulmonary embolism
CPT/HCPCS: 36415; 37195; 70450; 71045; 80053; 80162; 80307; 81001; 82272; 82553; 83605; 83735; 84484; 85025; 85610; 86140; 93005; 96360; 96361; 99285; J2997; J7030

== ENCOUNTER 2020-04-11 13:39 | Observation (INO) | payer MEDICARE, BC ==
--- NOTE | 2020-04-11 13:23 | EDM.PDOC ---
ED HPI GENERAL MEDICAL PROBLEM - General Chief Complaint: General Stated Complaint: AMBULANCE Time Seen by Provider: 04/11/20 13:16 Source of Information: Reports: Patient, Family History Limitations: Reports: No Limitations - History of Present Illness INITIAL COMMENTS - FREE TEXT/NARRATIVE: Patient comes emergency department today with the intentions of getting admitted for inpatient management and physical therapy and strengthening. This patient just this morning discontinued her hospice care at home after having family care meeting with her primary care provider Dr. Weeks. Patient had concerns of not getting physical therapy after a stroke about a month ago and would like physical therapy now. To get physical therapy she needed to stop hospice. Her primary care doctor discontinued her hospice and told her to go to the ER to be hospitalized. She is here today just because she wants physical therapy. She has no recent falls trauma or injury. She has no headache neck or back pain. No chest pain no shortness of breath or difficulty breathing. She does complain of generalized malaise and fatigue and generalized weakness. She had a stroke 1 month ago that left her with left sided almost paralysis of the arm and leg. No changes in other function just wants PT to help her move more and needs to be off Hospice to get PT. Neck Pain Score (Numeric/FACES): 6 - Related Data Allergies Allergy/AdvReac Type Severity Reaction Status Date / Time amoxicillin Allergy Hives Verified 04/11/20 15:48 ezetimibe Allergy Cannot Verified 04/11/20 15:48 Remember morphine Allergy Confusion Verified 04/11/20 15:48 moxifloxacin Allergy Cannot Verified 04/11/20 15:48 Remember naproxen [From Aleve] Allergy Cannot Verified 04/11/20 15:48 Remember Sfilanq-Fon-Xpi Reductase Allergy Muscle Verified 04/11/20 15:48 Inhibitor Aches sulindac Allergy Cannot Verified 04/11/20 15:48 Remember Tetracyclines Allergy Cannot Verified 04/11/20 15:48 Remember Home Meds: Home Meds Metoprolol Succinate [Toprol XL] 100 mg PO DAILY 04/20/15 [History] Pantoprazole [ProTONIX] 40 mg PO DAILY PRN 03/24/16 [History] Albuterol/Ipratropium [DuoNeb 3.0-0.5 MG/3 ML] 3 ml INH BID 08/23/19 [History] Aspirin [Adult Low Dose Aspirin EC] 81 mg PO DAILY 08/23/19 [History] Propylene Glycol/Peg 400 [Systane 0.3-0.4% Eye Drops] 1 drop EYEBOTH BID PRN 08/23/19 [History] Menthol/Methyl Salicylate [Icy Hot] 85 gm TOP TID PRN 11/27/19 [History] Potassium Chloride [Klor-Con 10] 20 meq PO DAILY 03/09/20 [History] Warfarin [Coumadin] 5 mg PO DAILY 03/09/20 [History] amLODIPine Besylate [Amlodipine Besylate] 10 mg PO DAILY 03/09/20 [History] Furosemide [Lasix] 40 mg PO DAILY 04/11/20 [History] LORazepam [Lorazepam] 0.5 mg PO Q8H PRN 04/11/20 [History] Menthol/Zinc Oxide [Menthol-Zinc Oxide 0.45%-20%] 1 applic TOP DAILY PRN 03/20 02/05 [History] Sennosides/Docusate Sodium [Senna-Docusate Sodium Tablet] 2 tab PO BID PRN 04/11/20 [History] cloNIDine [Catapres] 0.2 mg PO BID 04/11/20 [History] hydrALAZINE [Apresoline] 10 mg PO QID 04/11/20 [History] Acetaminophen/HYDROcodone [[place] 325-5 MG] 1 tab PO Q6H PRN 04/12/20 [History] Acetaminophen/HYDROcodone [[place] 325-5 MG] 2 tab PO Q6H PRN 04/12/20 [History] Past Medical History - Past Health History Medical/Surgical History: Denies Medical/Surgical History HEENT History: Reports: Impaired Vision Other HEENT History: wears glasses, is legally blind Cardiovascular History: Reports: Afib, Blood Clots/VTE/DVT, Heart Failure, High Cholesterol, Hypertension, Pacemaker Other Cardiovascular History: pauses in heart beat Respiratory History: Reports: COPD, PE, SOB, Other (See Below) Other Respiratory History: recent intubation Gastrointestinal History: Reports: GERD Other Gastrointestinal History: prolapsed rectum Genitourinary History: Reports: Retention, Urinary, Urinary Incontinence, UTI, Recurrent Other Genitourinary History: 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: Musculoskeletal History: Reports: Back Pain, Chronic, Osteoarthritis, Other (See Below) Other Musculoskeletal History: degenerative disc disease Neurological History: Reports: CVA, Headaches, Chronic, Other (See Below) Other Neuro History: cva in February 2020 Psychiatric History: Reports: None Endocrine/Metabolic History: Reports: Diabetes, Type II Hematologic History: Reports: None Immunologic History: Reports: None Oncologic (Cancer) History: Reports: None Dermatologic History: Reports: None - Infectious Disease History Infectious Disease History: Reports: Chicken Pox, Measles - Past Surgical History Head Surgeries/Procedures: Reports: None HEENT Surgical History: Reports: None Cardiovascular Surgical History: Reports: Pacer Respiratory Surgical History: Reports: None GI Surgical History: Reports: Other (See Below) Other GI Surgeries/Procedures: Bowel resection Female Surgical History: Reports: Other (See Below) Other Female Surgeries/Procedures: Bladder surgery Musculoskeletal Surgical History: Reports: None Social & Family History - Family History Family Medical History: Noncontributory - Tobacco Use Smoking Status *Q: Never Smoker Second Hand Smoke Exposure: No - Caffeine Use Caffeine Use: Reports: Coffee - Recreational Drug Use Recreational Drug Use: No - Living Situation & Occupation Living situation: Reports: , Alone Occupation: Retired ED ROS GENERAL - Review of Systems Review Of Systems: Comprehensive ROS is negative, except as noted in HPI. ED EXAM, GENERAL - Physical Exam Exam: See Below Exam Limited By: No Limitations General Appearance: Alert, WD/WN, No Apparent Distress Eye Exam: Bilateral Eye: EOMI Ears: Normal External Exam Nose: Normal Inspection Throat/Mouth: Normal Inspection Head: Atraumatic, Normocephalic, Other (left sided facial droop) Neck: Normal Inspection, Supple Respiratory/Chest: No Respiratory Distress, Lungs Clear, Normal Breath Sounds, No Accessory Muscle Use Cardiovascular: Normal Peripheral Pulses, Regular Rate, Rhythm Peripheral Pulses: 2+: Radial (L), Radial (R), Posterior Tibial (L), Posterior Tibial (R), Dorsalis Pedis (L), Dorsalis Pedis (R) GI/Abdominal: Normal Bowel Sounds, Soft, Non-Tender (Female) Exam: Deferred Rectal (Female) Exam: Deferred Back Exam: Normal Inspection Extremities: No: Normal Inspection (The patient has normal strength movement and sensation of the right upper arm and right lower. She has minimal sensation and movement of the left arm and left leg which is chronic for her. She has quite a bit of edema as well to her left arm. Otherwise her extremities are unremarkable.) Neurological: Alert, Oriented, No Motor/Sensory Deficits. No: CN II-XII Intact (Left facial droop chronic) Psychiatric: Normal Affect, Normal Mood Skin Exam: Warm, Dry, Intact, Normal Color, No Rash Course - Vital Signs Last Recorded V/S: Last Vital Signs Temp 98.5 F 04/12/20 12:00 Pulse 59 L 04/12/20 12:00 Resp 18 04/12/20 12:00 BP 125/36 L 04/12/20 12:00 Pulse Ox 92 L 04/12/20 12:00 - Orders/Labs/Meds Orders: Active Orders 24 hr Category Date Time Status CULTURE URINE [RM] Stat Lab 04/11/20 16:57 Received Medication Orders Hydrocodone Bitart/Acetaminophen ([place] 325-5 Mg) 1 - 2 tab PO Q6H [facility] Last Admin: 04/12/20 12:01 Dose: 1 tab Documented by: Admin: 04/12/20 05:53 Dose: 1 tab Documented by: Admin: 04/12/20 00:41 Dose: 1 tab Documented by: RAMYA Furosemide (Lasix) 40 mg PO DAILY DREA Last Admin: 04/12/20 08:40 Dose: 40 mg Documented by: RENE Lorazepam (Ativan) 0.5 mg PO Q8H PRN PRN Reason: Anxiety Last Admin: 04/11/20 20:57 Dose: 0.5 mg Documented by: DARIUS Magnesium Hydroxide (Milk Of Magnesia) 30 ml PO BID PRN PRN Reason: Constipation, use 2nd Methyl Salicylate (Icy Hot Cream) 0 gm TOP QID PRN PRN Reason: Pain Last Admin: 04/12/20 08:42 Dose: 1 applic Documented by: RENE (Hydralazine [ Apresoline] 10 Mg)* Pt Own Med* 10 mg PO Q6H DREA Last Admin: 04/12/20 12:08 Dose: Not Given Documented by: Admin: 04/12/20 05:54 Dose: 10 mg Documented by: Admin: 04/12/20 00:40 Dose: 10 mg Documented by: RAMYA Non-Formulary Medication (Menthol/Zinc Oxide [Menthol-Zinc Oxide 0.45%-20%]) 1 applic TOP DAILY PRN PRN Reason: Other Clonidine [Catapres] (0.2 Mg Own Med) 0 each PO BID [facility] Last Admin: 04/12/20 08:40 Dose: 1 each Documented by: RENE Metoprolol Succinate [Toprol Xl] 100 Mg Own Med 0 each PO DAILY [facility] Last Admin: 04/12/20 08:39 Dose: 1 each Documented by: RENE Warfarin Sodium (Pharmacy To Dose - Warfarin) 1 dose .XX ASDIRECTED [facility] Warfarin Sodium (Coumadin) 5 mg PO ONETIME ONE Stop: 04/12/20 14:01 Labs: Laboratory Tests 04/11/20 04/11/20 04/11/20 Range/Units 13:30 13:30 13:30 WBC 10.2 H (5.0-10.0) 10^3/uL RBC 3.48 L (4.2-5.4) 10^6/uL Hgb 8.2 L D (12.0-16.0) g/dL Hct 26.7 L (37.0-47.0) % MCV 76.7 L (80-100) fL MCH 23.6 L (27.0-34.0) pg MCHC 30.7 L (33.0-35.0) g/dL Plt Count 333 (150-450) 10^3/uL Neut % (Auto) 73.0 (42.2-75.2) % Lymph % (Auto) 14.7 L (20.5-50.1) % [place] % (Auto) 6.7 (2-8) % Eos % (Auto) 5.1 H (1.0-3.0) % Baso % (Auto) 0.5 (0.0-1.0) % PT 18.9 H D (9.0-12.0) SEC INR 2.0 H (0.9-1.2) Sodium 141 (136-145) mmol/L Potassium 3.8 (3.5-5.1) mmol/L Chloride 102 (98-107) mmol/L Carbon Dioxide 29 (21-32) mmol/L Anion Gap 13.8 H (7-13) mEq/L BUN 47 H (7-18) mg/dL Creatinine 0.81 (0.55-1.02) mg/dL Est Cr Clr Drug Dosing 43.20 mL/min Estimated GFR (MDRD) > 60 BUN/Creatinine Ratio 58.0 (No establ ref range) Glucose 169 H (74-99) mg/dL Calcium 9.7 (8.5-10.1) mg/dL Total Bilirubin 0.2 (0.2-1.0) mg/dL AST 19 (15-37) U/L ALT 23 (14-59) U/L Alkaline Phosphatase 61 (46-116) U/L Troponin I < 0.017 (0.000-0.056) ng/mL Total Protein 6.5 (6.4-8.2) g/dL Albumin 2.5 L (3.4-5.0) g/dL Globulin 4.0 Albumin/Globulin Ratio 0.63 Meds: Medications Generic Name Dose Route Start Last Admin Trade Name Freq PRN Reason Stop Dose Admin Hydrocodone Bitart/Acetaminophen 1 - 2 tab 04/12/20 00:30 04/12/20 12:01 [place] 325-5 Mg PO 1 tab Q6H DREA Administration Furosemide 40 mg 04/12/20 09:00 04/12/20 08:40 Lasix PO 40 mg DAILY DREA Administration Lorazepam 0.5 mg 04/11/20 18:19 04/11/20 20:57 Ativan PO 0.5 mg Q8H PRN Administration Anxiety Magnesium Hydroxide 30 ml 04/11/20 15:51 Milk Of Magnesia PO BID PRN Constipation, use 2nd Methyl Salicylate 0 gm 04/11/20 18:19 04/12/20 08:42 Icy Hot Cream TOP 1 applic QID PRN Administration Pain (Hydralazine [ 10 mg 04/12/20 00:30 04/12/20 12:08 Apresoline] 10 Mg)* PO Not Given Pt Own Med* Q6H DREA Non-Formulary Medication 1 applic 04/11/20 18:19 Menthol/Zinc Oxide [Menthol-Zinc Oxide 0.45%-20%] TOP DAILY PRN Other Clonidine [Catapres] 0 each 04/12/20 09:00 04/12/20 08:40 0.2 Mg Own Med PO 1 each BID DREA Administration Metoprolol Succinate 0 each 04/12/20 09:00 04/12/20 08:39 [Toprol Xl] 100 Mg PO 1 each Own Med DAILY [facility] Administration Warfarin Sodium 1 dose 04/12/20 08:30 Pharmacy To Dose - Warfarin .XX ASDIRECTED [facility] Warfarin Sodium 5 mg 04/12/20 14:00 Coumadin PO 04/12/20 14:01 ONETIME ONE Discontinued Medications Generic Name Dose Route Start Last Admin Trade Name Freq PRN Reason Stop Dose Admin Acetaminophen 650 mg 04/11/20 15:51 Tylenol PO Q4H PRN Pain (mild 1-3 )/fever Albuterol gm 04/11/20 15:57 Proventil Hfa INH Q4H PRN Wheezing Albuterol/Ipratropium 3 ml 04/11/20 15:57 Duoneb 3.0-0.5 Mg/3 Ml INH Q4H PRN Wheezing Aspirin 81 mg 04/12/20 09:00 Halfprin PO DAILY [facility] Clonidine HCl 0.2 mg 04/11/20 21:00 04/11/20 20:56 Catapres PO 04/11/20 21:01 0.2 mg ONETIME ONE Administration Docusate Sodium 100 mg 04/11/20 15:51 Colace PO DAILY PRN Constipation Escitalopram Oxalate 10 mg 04/12/20 09:00 04/12/20 09:38 Lexapro PO Not Given DAILY [facility] Ferrous Sulfate 325 mg 04/11/20 16:00 Ferrous Sulfate PO .SUPPER [facility] Folic Acid 1 mg 04/12/20 09:00 Folic Acid PO DAILY [facility] Furosemide 40 mg 04/12/20 09:00 Lasix PO DAILY [facility] Hydrochlorothiazide 25 mg 04/12/20 09:00 Hydrochlorothiazide PO DAILY [facility] Non-Formulary Medication 10 mg 04/12/20 09:00 Amlodipine Besylate [Amlodipine Besylate] PO DAILY [facility] Non-Formulary Medication 1 each 04/12/20 09:00 Calcium Carbonate/Vitamin D3 [Calcium 250+D] PO DAILY [facility] Non-Formulary Medication 1,000 mg 04/11/20 18:00 04/11/20 18:28 Metformin [Glucophage] PO Not Given BIDMEALS [facility] Oxycodone/Acetaminophen 1 tab 04/11/20 21:00 Percocet 325-5 Mg PO BID [facility] Pantoprazole Sodium 40 mg 04/12/20 09:00 Protonix PO DAILY [facility] Warfarin Sodium 5 mg 04/12/20 09:00 Coumadin PO DAILY [facility] - Re-Assessments/Exams Free Text/Narrative Re-Assessment/Exam: 04/12/20 12:[address] Villalobos about this patient and her concerns. He does consent to admitting her observation for PT evaluation. The patient is comfortable with this plan and her questions answered. Departure - Departure Time of Disposition: 13:53 Disposition: Refer to Observation Clinical Impression: Generalized weakness - Discharge Information Sepsis Event Note (ED) - Evaluation Sepsis Screening Result: No Definite Risk - My Orders Last 24 Hours: My Active Orders 04/11/20 16:57 CULTURE URINE [RM] Stat - Assessment/Plan Last 24 Hours: My Active Orders 04/11/20 16:57 CULTURE URINE [RM] Stat Assessment:: Generalized weakness Plan: Admit Wilfredo generalized weakness.
[2020-04-11 13:58] LABS: ANION GAP 13.8 mEq/L (7-13); CHLORIDE,CL 102 mmol/L (98-107); SODIUM,NA 141 mmol/L (136-145)
[2020-04-11] MEDS ORDERED: Acetaminophen 325 MG Tab PO PRN (15:51)
[2020-04-11] MEDS ORDERED: Docusate Sodium 100 MG Cap PO PRN (15:51)
[2020-04-11] MEDS ORDERED: Magnesium Hydroxide 400 MG/5 ML Susp 30 ML Cup PO PRN (15:51)
[2020-04-11] MEDS ORDERED: Albuterol 6.7 GM Inhaler INH PRN (15:57)
[2020-04-11] MEDS ORDERED: Albuterol/Ipratropium 3.0-0.5 MG/3 ML Neb Soln INH PRN (15:57)
--- NOTE | 2020-04-11 15:57 | PCM.HP ---
H&P History of Present Illness - General Date of Service: 04/11/20 Admit Problem/Dx: Admission Diagnosis/Problem Admission Diagnosis/Problem Generalized Weakness Source of Information: Patient History Limitations: Reports: No Limitations - History of Present Illness Initial Comments - Free Text/Narative: Quinn is a 89 y/o F with PMH of HTN, DVT, recent h/o CVA with residual left sided weakness who came to the ED for weakness. Patient was on home hospice. As per patient and daughter by bedside patient had a stroke at the end of February this year and was seen at [facility]. During hospitalization decision was made to discharge him home hospice. According to the daughter patient has been improving and requested to get physical therapy to get stronger and get out of bed. Following her stroke she has been very weak. She had discussion with her PCP today Dr. Weeks and expressed desire to have physical therapy to get strong. Her PCP decided to take her off hospice service so she can have PT/OT. She advised patient to come to the ED for admission to start PT/OT. She notes generalized weakness especially to the right side. She denies chest pain, SOB. No fever of chills. Improves with: Reports: None Worsens with: Reports: None Associated Symptoms: Reports: No Other Symptoms - Related Data Allergies/Adverse Reactions: Allergies Allergy/AdvReac Type Severity Reaction Status Date / Time amoxicillin Allergy Hives Verified 04/11/20 15:48 ezetimibe Allergy Cannot Verified 04/11/20 15:48 Remember morphine Allergy Confusion Verified 04/11/20 15:48 moxifloxacin Allergy Cannot Verified 04/11/20 15:48 Remember naproxen [From Aleve] Allergy Cannot Verified 04/11/20 15:48 Remember Kkcgllp-Tmn-Biq Reductase Allergy Muscle Verified 04/11/20 15:48 Inhibitor Aches sulindac Allergy Cannot Verified 04/11/20 15:48 Remember Tetracyclines Allergy Cannot Verified 04/11/20 15:48 Remember Home Medications: Home Meds Metoprolol Succinate [Toprol XL] 100 mg PO DAILY 04/20/15 [History] Pantoprazole [ProTONIX] 40 mg PO DAILY PRN 03/24/16 [History] Albuterol/Ipratropium [DuoNeb 3.0-0.5 MG/3 ML] 3 ml INH BID 08/23/19 [History] Aspirin [Adult Low Dose Aspirin EC] 81 mg PO DAILY 08/23/19 [History] Propylene Glycol/Peg 400 [Systane 0.3-0.4% Eye Drops] 1 drop EYEBOTH BID PRN 08/23/19 [History] Menthol/Methyl Salicylate [Icy Hot] 85 gm TOP QID PRN 11/27/19 [History] Potassium Chloride [Klor-Con 10] 20 meq PO DAILY 03/09/20 [History] Warfarin [Coumadin] 5 mg PO DAILY 03/09/20 [History] amLODIPine Besylate [Amlodipine Besylate] 10 mg PO DAILY 03/09/20 [History] Escitalopram [Lexapro] 10 mg PO DAILY 04/11/20 [History] Furosemide [Lasix] 40 mg PO DAILY 04/11/20 [History] Hydrocodone/Acetaminophen [[place] 5-325 Tablet] 1 each PO Q6H 04/11/20 [History] LORazepam [Lorazepam] 0.5 mg PO Q8H PRN 04/11/20 [History] Menthol/Zinc Oxide [Menthol-Zinc Oxide 0.45%-20%] 1 applic TOP DAILY PRN 04/11/20 [History] Sennosides/Docusate Sodium [Senna-Docusate Sodium Tablet] 2 tab PO BID PRN 04/11/20 [History] cloNIDine [Catapres] 0.2 mg PO BID 04/11/20 [History] hydrALAZINE [Apresoline] 10 mg PO Q6H 04/11/20 [History] Past Medical History - Past Health History Medical/Surgical History: Denies Medical/Surgical History HEENT History: Reports: Cataract, Impaired Vision Other HEENT History: wears glasses, is legally blind Cardiovascular History: Reports: Afib, Blood Clots/VTE/DVT, Heart Failure, High Cholesterol, Hypertension, Pacemaker Other Cardiovascular History: pauses in heart beat Respiratory History: Reports: COPD, PE, SOB, Other (See Below) Other Respiratory History: recent intubation Gastrointestinal History: Reports: GERD Other Gastrointestinal History: prolapsed rectum Genitourinary History: Reports: Retention, Urinary, Urinary Incontinence, UTI, Recurrent Other Genitourinary History: wears protection 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 stroke 03/18/2020 Psychiatric History: Reports: None Endocrine/Metabolic History: Reports: Diabetes, Type II Hematologic History: Reports: None Immunologic History: Reports: None Oncologic (Cancer) History: Reports: None Dermatologic History: Reports: None - Infectious Disease History Infectious Disease History: Reports: Measles - Past Surgical History Head Surgeries/Procedures: Reports: None HEENT Surgical History: Reports: Cataract Surgery Cardiovascular Surgical History: Reports: Pacer Respiratory Surgical History: Reports: None GI Surgical History: Reports: Other (See Below) Other GI Surgeries/Procedures: Bowel resection Female Surgical History: Reports: Other (See Below) Other Female Surgeries/Procedures: Bladder surgery Musculoskeletal Surgical History: Reports: None Social & Family History - Family History Family Medical History: Noncontributory - Tobacco Use Smoking Status *Q: Never Smoker Second Hand Smoke Exposure: No - Caffeine Use Caffeine Use: Reports: Coffee - Recreational Drug Use Recreational Drug Use: No - Living Situation & Occupation Living situation: Reports: , Alone Occupation: Retired H&P Review of Systems - Review of Systems: Review Of Systems: See Below General: Reports: No Symptoms HEENT: Reports: No Symptoms Pulmonary: Reports: No Symptoms Cardiovascular: Reports: No Symptoms Gastrointestinal: Reports: No Symptoms Genitourinary: Reports: No Symptoms Musculoskeletal: Reports: No Symptoms Skin: Reports: No Symptoms Psychiatric: Reports: No Symptoms Neurological: Reports: No Symptoms Hematologic/Lymphatic: Reports: No Symptoms Immunologic: Reports: No Symptoms Exam - Exam Exam: See Below - Vital Signs Vital Signs: Last Vital Signs Temp 98 F 04/11/20 15:20 Pulse 65 04/11/20 15:20 Resp 20 04/11/20 15:20 BP 129/53 L 04/11/20 15:20 Pulse Ox 93 L 04/11/20 15:20 Weight: 143 lb 6 oz - Exam Quality Assessment: Supplemental Oxygen General: Alert, Oriented, 4 HEENT: PERRLA, Hearing Intact, Mucosa Moist & [place], Nares Patent, Normal Nasal Septum, Posterior Pharynx Clear, Conjunctiva Clear, EOMI, EACs Clear, TMs Clear Neck: Supple, Trachea Midline, 2 Lungs: Clear to Auscultation, Normal Respiratory Effort Cardiovascular: Regular Rate, Regular Rhythm GI/Abdominal Exam: Normal Bowel Sounds, Soft, Non-Tender, No Organomegaly, No Distention, No Abnormal Bruit, No Mass, Pelvis Stable (Female) Exam: Normal External Exam, Normal Speculum Exam, Normal Bimanual Exam Rectal (Female) Exam: Normal Exam, Normal Rectal Tone Back Exam: Normal Inspection, Full Range of Motion, NT Extremities: Normal Inspection, Normal Range of Motion, Non-Tender, No Pedal Edema, Normal Capillary Refill, Other (left sided weakness) Skin: Warm, Dry, Intact Neurological: Cranial Nerves Intact, Reflexes Equal Bilateral Neuro Extensive - Mental Status: Alert, Oriented x3, Normal Mood/Affect, Normal Cognition Neuro Extensive - Motor, Sensory, Reflexes: CN II-XII Intact, Normal Gait, Normal Reflexes Psychiatric: Alert, Normal Affect, Normal Mood - Patient Data Lab Results Last 24 hrs: Laboratory Results - last 24 hr 04/11/20 04/11/20 Range/Units 13:30 13:30 WBC 10.2 H (5.0-10.0) 10^3/uL RBC 3.48 L (4.2-5.4) 10^6/uL Hgb 8.2 L D (12.0-16.0) g/dL Hct 26.7 L (37.0-47.0) % MCV 76.7 L (80-100) fL MCH 23.6 L (27.0-34.0) pg MCHC 30.7 L (33.0-35.0) g/dL Plt Count 333 (150-450) 10^3/uL Neut % (Auto) 73.0 (42.2-75.2) % Lymph % (Auto) 14.7 L (20.5-50.1) % Keith % (Auto) 6.7 (2-8) % Eos % (Auto) 5.1 H (1.0-3.0) % Baso % (Auto) 0.5 (0.0-1.0) % Sodium 141 (136-145) mmol/L Potassium 3.8 (3.5-5.1) mmol/L Chloride 102 (98-107) mmol/L Carbon Dioxide 29 (21-32) mmol/L Anion Gap 13.8 H (7-13) mEq/L BUN 47 H (7-18) mg/dL Creatinine 0.81 (0.55-1.02) mg/dL Est Cr Clr Drug Dosing 43.20 mL/min Estimated GFR (MDRD) > 60 BUN/Creatinine Ratio 58.0 (No establ ref range) Glucose 169 H (74-99) mg/dL Calcium 9.7 (8.5-10.1) mg/dL Total Bilirubin 0.2 (0.2-1.0) mg/dL AST 19 (15-37) U/L ALT 23 (14-59) U/L Alkaline Phosphatase 61 (46-116) U/L Troponin I < 0.017 (0.000-0.056) ng/mL Total Protein 6.5 (6.4-8.2) g/dL Albumin 2.5 L (3.4-5.0) g/dL Globulin 4.0 Albumin/Globulin Ratio 0.63 Result Diagrams: 04/11/20 13:30 04/11/20 13:30 - Problem List (1) CVA (cerebral vascular accident) SNOMED Code(s): 933443471 ICD Code: I63.9 - CEREBRAL INFARCTION, UNSPECIFIED Status: Acute Current Visit: Yes (2) Left-sided weakness SNOMED Code(s): 116987506 ICD Code: R53.1 - WEAKNESS Status: Acute Current Visit: Yes Problem List Initiated/Reviewed/Updated: Yes Orders Last 24hrs: Active Orders 24 hr Category Date Time Status Admission Diagnosis [ADT] Routine ADT 04/11/20 14:03 Ordered Patient Status [ADT] Routine ADT 04/11/20 14:03 Active Notify Provider Vital Signs [RC] ASDIRECTED Care 04/11/20 15:52 Ordered Up ad Yulissa [RC] ASDIRECTED Care 04/11/20 15:51 Ordered Vital Signs [RC] Q4H Care 04/11/20 15:51 Ordered OT Evaluation and Treatment [CONS] Routine Cons 04/11/20 15:54 Ordered PT Evaluation and Treatment [CONS] Routine Cons 04/11/20 15:54 Ordered Regular Diet [DIET] Diet 04/11/20 Dinner Ordered UA RFX MICHAEL AND CULT IF INDIC [URIN] Stat Lab 04/11/20 13:16 Ordered Acetaminophen [Tylenol] Med 04/11/20 15:51 Ordered 650 mg PO Q4H PRN Docusate Sodium [Colace] Med 06/24/20 15:51 Ordered 100 mg PO DAILY PRN Magnesium Hydroxide [Milk of Magnesia] Med 04/11/20 15:51 Ordered 30 ml PO BID PRN Resuscitation Status Routine Resus Stat 04/11/20 15:51 Ordered Medication Orders Acetaminophen (Tylenol) 650 mg PO Q4H PRN PRN Reason: Pain (mild 1-3 )/fever Docusate Sodium (Colace) 100 mg PO DAILY PRN PRN Reason: Constipation Magnesium Hydroxide (Milk Of Magnesia) 30 ml PO BID PRN PRN Reason: Constipation Assessment/Plan Comment:: #Generalized weakness following left sided CVA -Patient presented with increasing weakness requesting for PT/OT -She was on home hospice but her PCP had to take her off hospice service so she will be able to get PT/OT -Admit to medical floor -PT/T -Fall precautions #Left sided CVA with residual weakness -PT/OT #HTN -On Amlodipine #DNR/DNI
[2020-04-11] MEDS ORDERED: Ferrous Sulfate 325 MG Tab PO SCH (16:00)
[2020-04-11] MEDS ORDERED: Non-Formulary Medication 1 Each (Metformin [Glucophage] 1,000 MG) PO SCH (18:00)
[2020-04-11] MEDS ORDERED: ZINC OXIDE TOP PRN (18:19)
[2020-04-11] MEDS ORDERED: MENTHOL TOP PRN (18:19)
[2020-04-11] MEDS: LORazepam 0.5 MG Tab PO PRN (20:57)
[2020-04-11] MEDS ORDERED: Acetaminophen/oxyCODONE 325-5 MG Tab PO SCH (21:00)
[2020-04-11] MEDS ORDERED: cloNIDine 0.1 MG Tab PO ONE (21:00)
[2020-04-12] MEDS: Acetaminophen/HYDROcodone 325-5 MG Tab PO SCH ×3 (00:41→12:01)
--- NOTE | 2020-04-12 08:20 | PCM.PN ---
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 Patient was on home hospice. As per patient and daughter by bedside patient had a stroke at the end of February this year and was seen at [facility]. During hospitalization decision was made to discharge him home hospice. According to the daughter patient has been improving and wanting to get physical therapy to get stronger and get out of bed. Patient was admitted to resume PT/OT Today she sis doing ok. No acute event overnight. Functional Status: Reports: Pain Controlled - Review of Systems General: Reports: No Symptoms HEENT: Reports: No Symptoms Pulmonary: Reports: No Symptoms Cardiovascular: Reports: No Symptoms Gastrointestinal: Reports: No Symptoms Genitourinary: Reports: No Symptoms Musculoskeletal: Reports: No Symptoms Skin: Reports: No Symptoms Neurological: Reports: No Symptoms Psychiatric: Reports: No Symptoms - Patient Data Vitals - Most Recent: Last Vital Signs Temp 98 F 04/12/20 00:00 Pulse 61 04/12/20 00:00 Resp 18 04/12/20 00:00 BP 165/52 H 04/12/20 00:00 Pulse Ox 97 04/12/20 00:00 Weight - Most Recent: 141 lb 9.6 oz I&O - Last 24 Hours: Intake & Output 04/11/20 04/12/20 04/12/20 22:59 06:59 14:59 Intake Total 400 Output Total 550 Balance -150 Lab Results Last 24 Hours: Laboratory Results - last 24 hr 04/11/20 04/11/20 04/11/20 Range/Units 13:30 13:30 13:30 WBC 10.2 H (5.0-10.0) 10^3/uL RBC 3.48 L (4.2-5.4) 10^6/uL Hgb 8.2 L D (12.0-16.0) g/dL Hct 26.7 L (37.0-47.0) % MCV 76.7 L (80-100) fL MCH 23.6 L (27.0-34.0) pg MCHC 30.7 L (33.0-35.0) g/dL Plt Count 333 (150-450) 10^3/uL Neut % (Auto) 73.0 (42.2-75.2) % Lymph % (Auto) 14.7 L (20.5-50.1) % [place] % (Auto) 6.7 (2-8) % Eos % (Auto) 5.1 H (1.0-3.0) % Baso % (Auto) 0.5 (0.0-1.0) % PT 18.9 H D (9.0-12.0) SEC INR 2.0 H (0.9-1.2) Sodium 141 (136-145) mmol/L Potassium 3.8 (3.5-5.1) mmol/L Chloride 102 (98-107) mmol/L Carbon Dioxide 29 (21-32) mmol/L Anion Gap 13.8 H (7-13) mEq/L BUN 47 H (7-18) mg/dL Creatinine 0.81 (0.55-1.02) mg/dL Est Cr Clr Drug Dosing 43.20 mL/min Estimated GFR (MDRD) > 60 BUN/Creatinine Ratio 58.0 (No establ ref range) Glucose 169 H (74-99) mg/dL POC Glucose (83-110) mg/dl Calcium 9.7 (8.5-10.1) mg/dL Total Bilirubin 0.2 (0.2-1.0) mg/dL AST 19 (15-37) U/L ALT 23 (14-59) U/L Alkaline Phosphatase 61 (46-116) U/L Troponin I < 0.017 (0.000-0.056) ng/mL Total Protein 6.5 (6.4-8.2) g/dL Albumin 2.5 L (3.4-5.0) g/dL Globulin 4.0 Albumin/Globulin Ratio 0.63 Urine Color (YELLOW) Urine Appearance (CLEAR) Urine pH (5.0-9.0) Ur Specific [place] (1.005-1.030) Urine Protein (NEGATIVE) Urine Glucose (UA) (NEGATIVE) Urine Ketones (NEGATIVE) Urine Occult Blood (NEGATIVE) Urine Nitrite (NEGATIVE) Urine Bilirubin (NEGATIVE) Urine Urobilinogen (0.2-1.0) mg/dL Ur Leukocyte Esterase (NEGATIVE) Urine RBC /HPF Urine WBC (0-5/HPF) /HPF Ur Epithelial Cells (NOT SEEN) /HPF Urine Bacteria (0-FEW/HPF) /HPF Urine Mucus (NOT SEEN) /LPF Urine Other Urine Yeast (NOT SEEN) /HPF 04/11/20 04/11/20 04/12/20 Range/Units 16:40 16:57 08:00 WBC (5.0-10.0) 10^3/uL RBC (4.2-5.4) 10^6/uL Hgb (12.0-16.0) g/dL Hct (37.0-47.0) % MCV (80-100) fL MCH (27.0-34.0) pg MCHC (33.0-35.0) g/dL Plt Count (150-450) 10^3/uL Neut % (Auto) (42.2-75.2) % Lymph % (Auto) (20.5-50.1) % [place] % (Auto) (2-8) % Eos % (Auto) (1.0-3.0) % Baso % (Auto) (0.0-1.0) % PT (9.0-12.0) SEC INR (0.9-1.2) Sodium (136-145) mmol/L Potassium (3.5-5.1) mmol/L Chloride (98-107) mmol/L Carbon Dioxide (21-32) mmol/L Anion Gap (7-13) mEq/L BUN (7-18) mg/dL Creatinine (0.55-1.02) mg/dL Est Cr Clr Drug Dosing mL/min Estimated GFR (MDRD) BUN/Creatinine Ratio (No establ ref range) Glucose (74-99) mg/dL POC Glucose 152 H 159 H (83-110) mg/dl Calcium (8.5-10.1) mg/dL Total Bilirubin (0.2-1.0) mg/dL AST (15-37) U/L ALT (14-59) U/L Alkaline Phosphatase (46-116) U/L Troponin I (0.000-0.056) ng/mL Total Protein (6.4-8.2) g/dL Albumin (3.4-5.0) g/dL Globulin Albumin/Globulin Ratio Urine Color Yellow (YELLOW) Urine Appearance Slightly cloudy (CLEAR) Urine pH 6.0 (5.0-9.0) Ur Specific [place] 1.020 (1.005-1.030) Urine Protein 30 H (NEGATIVE) Urine Glucose (UA) Negative (NEGATIVE) Urine Ketones Negative (NEGATIVE) Urine Occult Blood Negative (NEGATIVE) Urine Nitrite Negative (NEGATIVE) Urine Bilirubin Negative (NEGATIVE) Urine Urobilinogen 0.2 (0.2-1.0) mg/dL Ur Leukocyte Esterase Small H (NEGATIVE) Urine RBC 0-5 /HPF Urine WBC 10-20 H (0-5/HPF) /HPF Ur Epithelial Cells Few (NOT SEEN) /HPF Urine Bacteria Rare (0-FEW/HPF) /HPF Urine Mucus Few H (NOT SEEN) /LPF Urine Other See note Urine Yeast Many H (NOT SEEN) /HPF Med Orders - Current: Current Medications Hydrocodone Bitart/Acetaminophen ([place] 325-5 Mg) 1 - 2 tab PO Q6H [facility] Last Admin: 04/12/20 05:53 Dose: 1 tab Documented by: Escitalopram Oxalate (Lexapro) 10 mg PO DAILY [facility] Furosemide (Lasix) 40 mg PO DAILY [facility] Lorazepam (Ativan) 0.5 mg PO Q8H PRN PRN Reason: Anxiety Last Admin: 04/11/20 20:57 Dose: 0.5 mg Documented by: Magnesium Hydroxide (Milk Of Magnesia) 30 ml PO BID PRN PRN Reason: Constipation, use 2nd Methyl Salicylate (Icy Hot Cream) 0 gm TOP QID PRN PRN Reason: Pain (Hydralazine [ Apresoline] 10 Mg)* Pt Own Med* 10 mg PO Q6H [facility] Last Admin: 04/12/20 05:54 Dose: 10 mg Documented by: Non-Formulary Medication (Menthol/Zinc Oxide [Menthol-Zinc Oxide 0.45%-20%]) 1 applic TOP DAILY PRN PRN Reason: Other Non-Formulary Medication (Metoprolol Succinate [Toprol Xl]) 100 mg PO DAILY [facility] Clonidine [Catapres] (0.2 Mg Own Med) 0 each PO BID [facility] Warfarin Sodium (Coumadin) 5 mg PO DAILY [facility] Discontinued Medications Acetaminophen (Tylenol) 650 mg PO Q4H PRN PRN Reason: Pain (mild 1-3 )/fever Albuterol (Proventil Hfa) gm INH Q4H PRN PRN Reason: Wheezing Albuterol/Ipratropium (Duoneb 3.0-0.5 Mg/3 Ml) 3 ml INH Q4H PRN PRN Reason: Wheezing Aspirin (Halfprin) 81 mg PO DAILY [facility] Clonidine HCl (Catapres) 0.2 mg PO ONETIME ONE Stop: 04/11/20 21:01 Last Admin: 04/11/20 20:56 Dose: 0.2 mg Documented by: Docusate Sodium (Colace) 100 mg PO DAILY PRN PRN Reason: Constipation Ferrous Sulfate (Ferrous Sulfate) 325 mg PO .SUPPER [facility] Folic Acid (Folic Acid) 1 mg PO DAILY [facility] Furosemide (Lasix) 40 mg PO DAILY [facility] Hydrochlorothiazide (Hydrochlorothiazide) 25 mg PO DAILY [facility] Non-Formulary Medication (Amlodipine Besylate [Amlodipine Besylate]) 10 mg PO DAILY [facility] Non-Formulary Medication (Calcium Carbonate/Vitamin D3 [Calcium 250+D]) 1 each PO DAILY [facility] Non-Formulary Medication (Metformin [Glucophage]) 1,000 mg PO BIDMEALS [facility] Last Admin: 04/11/20 18:28 Dose: Not Given Documented by: Oxycodone/Acetaminophen (Percocet 325-5 Mg) 1 tab PO BID [facility] Pantoprazole Sodium (Protonix) 40 mg PO DAILY [facility] - Exam General: Alert, Oriented HEENT: Pupils Equal, Pupils Reactive, EOMI, Mucous Membr. Moist/[place] Neck: Supple Lungs: Clear to Auscultation, Normal Respiratory Effort Cardiovascular: Regular Rate, Regular Rhythm GI/Abdominal Exam: Normal Bowel Sounds, Soft, Non-Tender, No Organomegaly, No Distention, No Abnormal Bruit, No Mass, Pelvis Stable (Female) Exam: Normal External Exam, Normal Speculum Exam, Normal Bimanual Exam Back Exam: Normal Inspection, Full Range of Motion Extremities: Normal Inspection, Normal Range of Motion, Non-Tender, No Pedal Edema, Normal Capillary Refill, Other (left side ic completely flaccid) Skin: Warm, Dry, Intact Wound/Incisions: Healing Well Neurological: No New Focal Deficit Psy/Mental Status: Alert, Normal Affect, Normal Mood Sepsis Event Note - Evaluation Sepsis Screening Result: No Definite Risk - Focused Exam Vital Signs: Vital Signs Temp Pulse Resp BP BP Pulse Ox 04/12/20 00:00 98 F 61 18 165/52 H 97 04/11/20 20:56 160/70 H Date Exam was Performed: 04/12/20 Time Exam was Performed: 09:22 - Problem List & Annotations (1) CVA (cerebral vascular accident) SNOMED Code(s): 636228039 Code(s): I63.9 - CEREBRAL INFARCTION, UNSPECIFIED Status: Acute Current Visit: Yes (2) Left-sided weakness SNOMED Code(s): 838328973 Code(s): R53.1 - WEAKNESS Status: Acute Current Visit: Yes - Problem List Review Problem List Initiated/Reviewed/Updated: Yes - My Orders Last 24 Hours: My Active Orders 04/11/20 15:51 Up ad Yulissa [RC] ASDIRECTED Vital Signs [RC] 00,04,08,12,16,20 Magnesium Hydroxide [Milk of Magnesia] 30 ml PO BID PRN Resuscitation Status Routine 04/11/20 15:52 Notify Provider Vital Signs [RC] ASDIRECTED 04/11/20 15:54 OT Evaluation and Treatment [CONS] Routine PT Evaluation and Treatment [CONS] Routine 04/11/20 15:59 RT Aerosol Therapy [RC] ASDIRECTED RT Post Treatment Assessment [RC] Click to Edit RT Pre-Treatment Assessment [RC] Click to Edit 04/11/20 Dinner Regular Diet [DIET] 04/11/20 18:19 LORazepam [Ativan] 0.5 mg PO Q8H PRN Menthol/Methyl Salicylate [Icy Hot Cream] 0 gm TOP QID PRN Menthol/Zinc Oxide [Menthol-Zinc Oxide 0.45%-20%] 1 applic TOP DAILY PRN 04/11/20 21:00 cloNIDine [Catapres] 0.2 mg PO BID 04/12/20 00:30 Acetaminophen/HYDROcodone [[place] 325-5 MG] 1 - 2 tab PO Q6H hydrALAZINE [Apresoline] 10 mg PO Q6H 04/12/20 08:00 Blood Glucose Check, Bedside [RC] DAILY 04/12/20 08:18 Consult to Palliative Care [CONS] Routine 04/12/20 08:30 Pharmacy to Dose - Warfarin 1 dose .XX ASDIRECTED 04/12/20 09:00 Escitalopram [Lexapro] 10 mg PO DAILY Furosemide [Lasix] 40 mg PO DAILY Metoprolol Succinate [Toprol XL] 100 mg PO DAILY Warfarin [Coumadin] 5 mg PO DAILY - Plan Plan:: #Generalized weakness following left sided CVA -Patient presented with increasing weakness requesting for PT/OT -She was on home hospice but her PCP had to take her off hospice service so she will be able to get PT/OT -PT/T -Fall precautions #Left sided CVA with residual weakness -PT/OT #HTN -On Amlodipine #DNR/DNI
[2020-04-12] MEDS: METOPROLOL SUCCINATE 100 MG PO SCH (08:39)
[2020-04-12] MEDS: Furosemide 20 MG Tab **OWN MED PO SCH (08:40)
[2020-04-12] MEDS: CLONIDINE 0.2 MG PO SCH ×2 (08:40→21:37)
[2020-04-12] MEDS: Menthol/Methyl Salicylate 85 GM Tube TOP PRN ×3 (08:42→21:30)
[2020-04-12] MEDS ORDERED: Furosemide 40 MG Tab PO SCH (09:00)
[2020-04-12] MEDS ORDERED: CALCIUM CARBONATE PO SCH (09:00)
[2020-04-12] MEDS ORDERED: Folic Acid 1 MG Tab PO SCH (09:00)
[2020-04-12] MEDS ORDERED: Hydrochlorothiazide 25 MG Tab PO SCH (09:00)
[2020-04-12] MEDS ORDERED: Pantoprazole 40 MG Tab.CR PO SCH (09:00)
[2020-04-12] MEDS ORDERED: Aspirin 81 MG Tab.EC PO SCH (09:00)
[2020-04-12] MEDS ORDERED: Non-Formulary Medication 1 Each (Amlodipine Besylate [Amlodipine Besylate] 10 MG) PO SCH (09:00)
[2020-04-12] MEDS ORDERED: Warfarin 5 MG Tab PO SCH (09:00)
[2020-04-12] MEDS ORDERED: Escitalopram 10 MG Tab PO SCH (09:00)
[2020-04-12] MEDS ORDERED: VITAMIN D3 PO SCH (09:00)
[2020-04-12] MEDS ORDERED: Warfarin 5 MG Tab PO ONE (14:00)
[2020-04-12] MEDS ORDERED: Warfarin 5 MG Tab **OWN MED PO ONE (14:00)
[2020-04-12] MEDS ORDERED: Acetaminophen/HYDROcodone 325-5 MG Tab PO PRN ×2 (14:25→14:26)
[2020-04-12] MEDS ORDERED: HYDROCODONE PO PRN ×2 (14:48→14:49)
[2020-04-12] MEDS ORDERED: ACETAMINOPHEN PO PRN ×2 (14:48→14:49)
[2020-04-12] MEDS: ACETAMINOPHEN PO PRN (17:50)
[2020-04-12] MEDS: HYDROCODONE PO PRN (17:50)
[2020-04-12] MEDS: LORazepam 0.5 MG Tab PO PRN (21:39)
[2020-04-13] MEDS: ACETAMINOPHEN PO PRN ×4 (02:11→18:19)
[2020-04-13] MEDS: HYDROCODONE PO PRN ×4 (02:11→18:19)
--- NOTE | 2020-04-13 09:24 | PCM.PN ---
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 Patient was on home hospice. As per patient and daughter by bedside patient had a stroke at the end of February this year and was seen at [facility]. During hospitalization decision was made to discharge him home hospice. According to the daughter patient has been improving and wanting to get physical therapy to get stronger and get out of bed. Patient was admitted to resume PT/OT Today she seen and examined today with daughter by bedside. She is complaining of 8/10 pain to the neck. Denies trauma, headache, fever, chills. She also c/o pain to the left extremities She had therapy yesterday but could not do much No acute event overnight. She is awaiting placement to SNF on Thursday. Bed is not available [facility] Thursday Functional Status: Reports: Pain Controlled - Review of Systems General: Reports: No Symptoms HEENT: Reports: No Symptoms Pulmonary: Reports: No Symptoms Cardiovascular: Reports: No Symptoms Gastrointestinal: Reports: No Symptoms Genitourinary: Reports: No Symptoms Musculoskeletal: Reports: No Symptoms Skin: Reports: No Symptoms Neurological: Reports: No Symptoms Psychiatric: Reports: No Symptoms - Patient Data Vitals - Most Recent: Last Vital Signs Temp 98.1 F 04/13/20 07:49 Pulse 81 04/13/20 07:49 Resp 18 04/13/20 07:49 BP 148/48 H 04/13/20 07:49 Pulse Ox 89 L 04/13/20 07:49 Weight - Most Recent: 146 lb I&O - Last 24 Hours: Intake & Output 04/12/20 04/13/20 04/13/20 22:59 06:59 14:59 Intake Total 1000 Output Total 650 150 Balance 350 -150 Lab Results Last 24 Hours: Laboratory Results - last 24 hr 04/13/20 Range/Units 05:35 PT 22.6 H (9.0-12.0) SEC INR 2.4 H (0.9-1.2) Med Orders - Current: Current Medications Hydrocodone Bitart/Acetaminophen ([place] 325-5 Mg) 1 tab PO Q6H PRN PRN Reason: Pain (moderate 4-6) Last Admin: 04/12/20 17:50 Dose: 1 tab Documented by: Hydrocodone Bitart/Acetaminophen ([place] 325-5 Mg) 2 tab PO Q6H PRN PRN Reason: Pain (severe 7-10) Last Admin: 04/13/20 08:04 Dose: 2 tab Documented by: Furosemide (Lasix) 40 mg PO DAILY [facility] Last Admin: 04/12/20 08:40 Dose: 40 mg Documented by: Lorazepam (Ativan) 0.5 mg PO Q8H PRN PRN Reason: Anxiety Last Admin: 04/12/20 21:39 Dose: 0.5 mg Documented by: Magnesium Hydroxide (Milk Of Magnesia) 30 ml PO BID PRN PRN Reason: Constipation, use 2nd Last Admin: 04/12/20 18:34 Dose: 30 ml Documented by: Methyl Salicylate (Icy Hot Cream) 0 gm TOP QID PRN PRN Reason: Pain Last Admin: 04/12/20 21:30 Dose: 1 applic Documented by: (Hydralazine [ Apresoline] 10 Mg)* Pt Own Med* 10 mg PO Q6H [facility] Last Admin: 04/13/20 06:11 Dose: 10 mg Documented by: Menthol/Zinc Oxide [ Calmoseptine 0.45%- 20%] Cream *Own Med* 1 applic TOP DAILY PRN PRN Reason: Other Last Admin: 04/12/20 15:16 Dose: 1 applic Documented by: Clonidine [Catapres] (0.2 Mg Own Med) 0 each PO BID [facility] Last Admin: 04/12/20 21:37 Dose: Not Given Documented by: Metoprolol Succinate [Toprol Xl] 100 Mg Own Med 0 each PO DAILY [facility] Last Admin: 04/12/20 08:39 Dose: 1 each Documented by: Warfarin Sodium (Pharmacy To Dose - Warfarin) 1 dose .XX ASDIRECTED [facility] Discontinued Medications Acetaminophen (Tylenol) 650 mg PO Q4H PRN PRN Reason: Pain (mild 1-3 )/fever Hydrocodone Bitart/Acetaminophen ([place] 325-5 Mg) 1 - 2 tab PO Q6H [facility] Last Admin: 04/12/20 12:01 Dose: 1 tab Documented by: Hydrocodone Bitart/Acetaminophen ([place] 325-5 Mg) 1 tab PO Q6H PRN PRN Reason: Pain (moderate 4-6) Hydrocodone Bitart/Acetaminophen ([place] 325-5 Mg) 2 tab PO Q6H PRN PRN Reason: Pain (severe 7-10) Hydrocodone Bitart/Acetaminophen ([place] 325-5 Mg) 1 tab PO Q6H PRN PRN Reason: Pain (moderate 4-6) Hydrocodone Bitart/Acetaminophen ([place] 325-5 Mg) 2 tab PO Q6H PRN PRN Reason: Pain (severe 7-10) Albuterol (Proventil Hfa) gm INH Q4H PRN PRN Reason: Wheezing Albuterol/Ipratropium (Duoneb 3.0-0.5 Mg/3 Ml) 3 ml INH Q4H PRN PRN Reason: Wheezing Aspirin (Halfprin) 81 mg PO DAILY [facility] Clonidine HCl (Catapres) 0.2 mg PO ONETIME ONE Stop: 04/11/20 21:01 Last Admin: 04/11/20 20:56 Dose: 0.2 mg Documented by: Docusate Sodium (Colace) 100 mg PO DAILY PRN PRN Reason: Constipation Escitalopram Oxalate (Lexapro) 10 mg PO DAILY [facility] Last Admin: 04/12/20 09:38 Dose: Not Given Documented by: Ferrous Sulfate (Ferrous Sulfate) 325 mg PO .SUPPER [facility] Folic Acid (Folic Acid) 1 mg PO DAILY [facility] Furosemide (Lasix) 40 mg PO DAILY [facility] Hydrochlorothiazide (Hydrochlorothiazide) 25 mg PO DAILY [facility] Non-Formulary Medication (Amlodipine Besylate [Amlodipine Besylate]) 10 mg PO DAILY [facility] Non-Formulary Medication (Calcium Carbonate/Vitamin D3 [Calcium 250+D]) 1 each PO DAILY [facility] Non-Formulary Medication (Metformin [Glucophage]) [facility] [place] Last Admin: 04/11/20 18:28 Dose: Not Given Documented by: Oxycodone/Acetaminophen (Percocet 325-5 Mg) 1 tab PO BID [facility] Pantoprazole Sodium (Protonix) 40 mg PO DAILY [facility] Warfarin Sodium (Coumadin) 5 mg PO DAILY [facility] Warfarin Sodium (Coumadin) 5 mg PO ONETIME ONE Stop: 04/12/20 14:01 Last Admin: 04/12/20 14:35 Dose: 5 mg Documented by: - Exam Quality Assessment: DVT Prophylaxis General: Alert, Oriented HEENT: Pupils Equal, Pupils Reactive, EOMI, Mucous Membr. Moist/[place] Neck: Supple Lungs: Clear to Auscultation, Normal Respiratory Effort Cardiovascular: Regular Rate, Regular Rhythm GI/Abdominal Exam: Normal Bowel Sounds, Soft, Non-Tender, No Organomegaly, No Distention, No Abnormal Bruit, No Mass, Pelvis Stable (Female) Exam: Normal External Exam, Normal Speculum Exam, Normal Bimanual Exam Back Exam: Normal Inspection, Full Range of Motion Extremities: Normal Inspection, Normal Range of Motion, Non-Tender, No Pedal Edema, Normal Capillary Refill Skin: Warm, Dry, Intact Wound/Incisions: Healing Well Neurological: No New Focal Deficit Psy/Mental Status: Alert, Normal Affect, Normal Mood Sepsis Event Note - Evaluation Sepsis Screening Result: No Definite Risk - Focused Exam Vital Signs: Vital Signs Temp Pulse Resp BP Pulse Ox 04/13/20 07:49 98.1 F 81 18 148/48 H 89 L 04/12/20 23:52 97.7 F 64 18 143/48 H 90 L 04/12/20 21:29 98.3 F 69 18 150/70 H 90 L Date Exam was Performed: 04/13/20 Time Exam was Performed: 09:18 - Problem List & Annotations (1) CVA (cerebral vascular accident) SNOMED Code(s): 952557264 Code(s): I63.9 - CEREBRAL INFARCTION, UNSPECIFIED Status: Acute Current Visit: Yes (2) Left-sided weakness SNOMED Code(s): 305702631 Code(s): R53.1 - WEAKNESS Status: Acute Current Visit: Yes (3) Neck pain on right side SNOMED Code(s): 76250206 Code(s): M54.2 - CERVICALGIA Status: Acute Current Visit: Yes - Problem List Review Problem List Initiated/Reviewed/Updated: Yes - My Orders Last 24 Hours: My Active Orders 04/12/20 08:30 Pharmacy to Dose - Warfarin 1 dose .XX ASDIRECTED 04/12/20 09:00 Furosemide [Lasix] 40 mg PO DAILY Patient's Own Medication [Ptom] 0 each PO BID Patient's Own Medication [Ptom] 0 each PO DAILY 04/12/20 18:00 Acetaminophen/HYDROcodone [[place] 325-5 MG] 1 tab PO Q6H PRN Acetaminophen/HYDROcodone [[place] 325-5 MG] 2 tab PO Q6H PRN 04/14/20 06:00 INR,PT,PROTHROMBIN TIME [COAG] DAILY 04/15/20 06:00 INR,PT,PROTHROMBIN TIME [COAG] DAILY 04/16/20 07:00 CORONAVIRUS COVID-19 PCR PHL Routine - Plan Plan:: #Generalized weakness following left sided CVA -Patient presented with increasing weakness requesting for PT/OT -She was on home hospice but her PCP had to take her off hospice service so she will be able to get PT/OT -Continue PT/T -Fall precautions #Left sided CVA with residual weakness -PT/OT #Neck pain -Continue current pain medications #HTN -On Amlodipine #DNR/DNI #Disposition -SNF rehab on 04/16/20
[2020-04-13] MEDS: Furosemide 20 MG Tab **OWN MED PO SCH (11:36)
[2020-04-13] MEDS: METOPROLOL SUCCINATE 100 MG PO SCH (11:36)
[2020-04-13] MEDS: CLONIDINE 0.2 MG PO SCH ×2 (11:36→21:47)
[2020-04-13] MEDS ORDERED: Warfarin 5 MG Tab **OWN MED PO ONE (14:00)
[2020-04-13] MEDS ORDERED: Morphine 10 MG/0.5 ML Oral Syringe SL PRN (21:01)
[2020-04-13] MEDS: Menthol/Methyl Salicylate 85 GM Tube TOP PRN (21:34)
--- NOTE | 2020-04-14 09:48 | PCM.PN ---
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 Patient was on home hospice. As per patient and daughter by bedside patient had a stroke at the end of February this year and was seen at [facility]. During hospitalization decision was made to discharge him home hospice. According to the daughter patient has been improving and wanting to get physical therapy to get stronger and get out of bed. Patient was admitted to resume PT/OT Today she seen and examined today. She appears a little confused this morning and unable to provide adequate history. She still c/o left sided neck pain. Morphine SL was added to her medications yesterday. I d/c all narcotics and Lorazepam due to confusion. Place her only on Tylenol. Otherwise her clinical condition remain the same. There was no reported fever, chills. Functional Status: Reports: Other (confused) - Review of Systems General: Reports: Other (unable to obtained ) HEENT: Reports: No Symptoms Pulmonary: Reports: No Symptoms Cardiovascular: Reports: No Symptoms Gastrointestinal: Reports: No Symptoms Genitourinary: Reports: No Symptoms Musculoskeletal: Reports: No Symptoms Skin: Reports: No Symptoms Neurological: Reports: No Symptoms Psychiatric: Reports: No Symptoms - Patient Data Vitals - Most Recent: Last Vital Signs Temp 97.6 F 04/14/20 08:00 Pulse 68 04/14/20 08:00 Resp 24 H 04/14/20 08:00 BP 152/50 H 04/14/20 08:00 Pulse Ox 97 04/14/20 08:00 Weight - Most Recent: 140 lb 14.4 oz I&O - Last 24 Hours: Intake & Output 04/13/20 04/14/20 04/14/20 22:59 06:59 14:59 Intake Total 200 Output Total 950 Balance -750 Lab Results Last 24 Hours: Laboratory Results - last 24 hr 04/13/20 04/14/20 Range/Units 07:56 05:45 PT 24.1 H (9.0-12.0) SEC INR 2.6 H (0.9-1.2) POC Glucose 160 H (83-110) mg/dl [place] Results Last 24 Hours: Microbiology 04/11/20 16:57 Urine Culture - Final Urine, Voided Yeast Isolated Med Orders - Current: Current Medications Furosemide (Lasix) 40 mg PO DAILY [facility] Last Admin: 04/13/20 11:36 Dose: 40 mg Documented by: Lorazepam (Ativan) 0.5 mg PO Q8H PRN PRN Reason: Anxiety Last Admin: 04/12/20 21:39 Dose: 0.5 mg Documented by: Magnesium Hydroxide (Milk Of Magnesia) 30 ml PO BID PRN PRN Reason: Constipation, use 2nd Last Admin: 04/12/20 18:34 Dose: 30 ml Documented by: Methyl Salicylate (Icy Hot Cream) 0 gm TOP QID PRN PRN Reason: Pain Last Admin: 04/13/20 21:34 Dose: 1 applic Documented by: Morphine Sulfate (Morphine 10 Mg/0.5 Ml Oral Syringe) 5 mg SL Q4H PRN PRN Reason: Pain Last Admin: 04/13/20 22:18 Dose: 5 mg Documented by: Menthol/Zinc Oxide [ Calmoseptine 0.45%- 20%] Cream *Own Med* 1 applic TOP DAILY PRN PRN Reason: Other Last Admin: 04/12/20 15:16 Dose: 1 applic Documented by: Clonidine [Catapres] (0.2 Mg Own Med) 0 each PO BID [facility] Last Admin: 04/13/20 21:47 Dose: Not Given Documented by: Metoprolol Succinate [Toprol Xl] 100 Mg Own Med 0 each PO DAILY [facility] Last Admin: 04/13/20 11:36 Dose: 1 each Documented by: Senna/Docusate Sodium (Senna Plus) 1 tab PO DAILY [facility] Warfarin Sodium (Pharmacy To Dose - Warfarin) 1 dose .XX ASDIRECTED [facility] Warfarin Sodium (Coumadin) 5 mg PO ONETIME ONE Stop: 04/14/20 14:01 Discontinued Medications Acetaminophen (Tylenol) 650 mg PO Q4H PRN PRN Reason: Pain (mild 1-3 )/fever Hydrocodone Bitart/Acetaminophen ([place] 325-5 Mg) 1 - 2 tab PO Q6H [facility] Last Admin: 04/12/20 12:01 Dose: 1 tab Documented by: Hydrocodone Bitart/Acetaminophen ([place] 325-5 Mg) 1 tab PO Q6H PRN PRN Reason: Pain (moderate 4-6) Hydrocodone Bitart/Acetaminophen ([place] 325-5 Mg) 2 tab PO Q6H PRN PRN Reason: Pain (severe 7-10) Hydrocodone Bitart/Acetaminophen ([place] 325-5 Mg) 1 tab PO Q6H PRN PRN Reason: Pain (moderate 4-6) Hydrocodone Bitart/Acetaminophen ([place] 325-5 Mg) 2 tab PO Q6H PRN PRN Reason: Pain (severe 7-10) Hydrocodone Bitart/Acetaminophen ([place] 325-5 Mg) 1 tab PO Q6H PRN PRN Reason: Pain (moderate 4-6) Last Admin: 04/13/20 09:36 Dose: 1 tab Documented by: Hydrocodone Bitart/Acetaminophen ([place] 325-5 Mg) 2 tab PO Q6H PRN PRN Reason: Pain (severe 7-10) Last Admin: 04/13/20 18:19 Dose: 2 tab Documented by: Albuterol (Proventil Hfa) gm INH Q4H PRN PRN Reason: Wheezing Albuterol/Ipratropium (Duoneb 3.0-0.5 Mg/3 Ml) 3 ml INH Q4H PRN PRN Reason: Wheezing Aspirin (Halfprin) 81 mg PO DAILY [facility] Clonidine HCl (Catapres) 0.2 mg PO ONETIME ONE Stop: 04/11/20 21:01 Last Admin: 04/11/20 20:56 Dose: 0.2 mg Documented by: Docusate Sodium (Colace) 100 mg PO DAILY PRN PRN Reason: Constipation Escitalopram Oxalate (Lexapro) 10 mg PO DAILY [facility] Last Admin: 04/12/20 09:38 Dose: Not Given Documented by: Ferrous Sulfate (Ferrous Sulfate) 325 mg PO .SUPPER [facility] Folic Acid (Folic Acid) 1 mg PO DAILY [facility] Furosemide (Lasix) 40 mg PO DAILY [facility] Hydrochlorothiazide (Hydrochlorothiazide) 25 mg PO DAILY [facility] Non-Formulary Medication (Amlodipine Besylate [Amlodipine Besylate]) 10 mg PO DAILY [facility] Non-Formulary Medication (Calcium Carbonate/Vitamin D3 [Calcium 250+D]) 1 each PO DAILY [facility] Non-Formulary Medication (Metformin [Glucophage]) 1,000 mg PO BIDMEALS [facility] Last Admin: 04/11/20 18:28 Dose: Not Given Documented by: (Hydralazine [ Apresoline] 10 Mg)* Pt Own Med* 10 mg PO Q6H [facility] Last Admin: 04/13/20 21:48 Dose: Not Given Documented by: Oxycodone/Acetaminophen (Percocet 325-5 Mg) 1 tab PO BID [facility] Pantoprazole Sodium (Protonix) 40 mg PO DAILY [facility] Warfarin Sodium (Coumadin) 5 mg PO DAILY [facility] Warfarin Sodium (Coumadin) 5 mg PO ONETIME ONE Stop: 04/12/20 14:01 Last Admin: 04/12/20 14:35 Dose: 5 mg Documented by: Warfarin Sodium (Coumadin) 5 mg PO ONETIME ONE Stop: 04/13/20 14:01 Last Admin: 04/13/20 15:30 Dose: 5 mg Documented by: - Exam Quality Assessment: DVT Prophylaxis General: Alert, Lethargic, Other (confused) HEENT: Pupils Equal, Pupils Reactive, EOMI, Mucous Membr. Moist/[place] Neck: Supple, Other Lungs: Clear to Auscultation, Normal Respiratory Effort Cardiovascular: Regular Rate, Regular Rhythm GI/Abdominal Exam: Normal Bowel Sounds, Soft, Non-Tender, No Organomegaly, No Distention, No Abnormal Bruit, No Mass, Pelvis Stable (Female) Exam: Normal External Exam, Normal Speculum Exam, Normal Bimanual Exam Back Exam: Normal Inspection, Full Range of Motion Extremities: Other (left sided weakness) Skin: Warm Wound/Incisions: Healing Well Neurological: No New Focal Deficit, Other Psy/Mental Status: Alert, Other (confused) Sepsis Event Note - Evaluation Sepsis Screening Result: No Definite Risk - Focused Exam Vital Signs: Vital Signs Temp Pulse Resp BP Pulse Ox 04/14/20 08:00 97.6 F 68 24 H 152/50 H 97 04/14/20 05:00 98.9 F 67 24 H 145/61 H 96 Date Exam was Performed: 04/15/20 Time Exam was Performed: 09:39 - Problem List & Annotations (1) CVA (cerebral vascular accident) SNOMED Code(s): 427118731 Code(s): I63.9 - CEREBRAL INFARCTION, UNSPECIFIED Status: Acute Current Visit: Yes (2) Left-sided weakness SNOMED Code(s): 298106580 Code(s): R53.1 - WEAKNESS Status: Acute Current Visit: Yes (3) Neck pain on right side SNOMED Code(s): 03903221 Code(s): M54.2 - CERVICALGIA Status: Acute Current Visit: Yes (4) Acute metabolic encephalopathy SNOMED Code(s): 66845934, 178159336 Code(s): G93.41 - METABOLIC ENCEPHALOPATHY Status: Acute Current Visit: Yes - Problem List Review Problem List Initiated/Reviewed/Updated: Yes - My Orders Last 24 Hours: My Active Orders 04/13/20 17:13 K Pad [Heat Therapy] [OM.PC] Routine 04/13/20 21:01 Morphine [Morphine 10 MG/0.5 ML Oral Syringe] 5 mg SL Q4H PRN 04/14/20 09:00 Dietary Supplements [RC] BIDAC Docusate Sodium/Sennosides [Senna Plus] 1 tab PO DAILY 04/14/20 14:00 Warfarin [Coumadin] 5 mg PO ONETIME ONE 04/15/20 06:00 INR,PT,PROTHROMBIN TIME [COAG] DAILY 04/16/20 07:00 CORONAVIRUS COVID-19 PCR PHL Routine - Plan Plan:: #Acute encephalopathy likely due to medications -D/c Morphine, [place] and Lorazepam -Tylenol for pain -Monitor mental status closely #Generalized weakness following left sided CVA -Patient presented with increasing weakness requesting for PT/OT -She was on home hospice but her PCP had to take her off hospice service so she will be able to get PT/OT -Continue PT/T -Fall precautions #Left sided CVA with residual weakness -PT/OT #Neck pain -Cervical xray -Tylenol prn #HTN -On Amlodipine #DNR/DNI #Disposition -SNF rehab on 04/16/20
[2020-04-14] MEDS: Furosemide 20 MG Tab **OWN MED PO SCH (10:36)
[2020-04-14] MEDS: METOPROLOL SUCCINATE 100 MG PO SCH (10:36)
[2020-04-14] MEDS: CLONIDINE 0.2 MG PO SCH ×2 (10:37→22:53)
[2020-04-14] MEDS ORDERED: Acetaminophen 325 MG Tab PO PRN (11:05)
[2020-04-14 12:26] LABS: CHLORIDE,CL 103 mmol/L (98-107); SODIUM,NA 140 mmol/L (136-145)
--- NOTE | 2020-04-14 13:44 | CR ---
PROCEDURE INFORMATION: Exam: XR Cervical Spine, 2 or 3 Views Exam date and time: 04/14/2020 10:50 AM Age: 89 years old Clinical indication: Neck pain; Additional info: Left sided neck pain, TECHNIQUE: Imaging protocol: XR of the cervical spine, 2 or 3 views. COMPARISON: CT Cervical Spine wo Cont 03/02/2019 5:43 AM FINDINGS: Limitations: Evaluation is only to the C6 level. Patient positioning and motion limits the examination. Vertebrae: Multilevel facet arthropathy. No acute fracture. Soft tissues: Unremarkable. IMPRESSION: No acute findings.
[2020-04-14] MEDS ORDERED: Warfarin 5 MG Tab **OWN MED PO ONE (14:00)
[2020-04-14] MEDS: Albuterol/Ipratropium 3.0-0.5 MG/3 ML Neb Soln NEB PRN (19:43)
[2020-04-14] MEDS ORDERED: Atropine 1% Ophth Soln 5 ML BOTTLE SL PRN (19:59)
[2020-04-14] MEDS: Morphine 10 MG/0.5 ML Oral Syringe SL PRN (23:22)
[2020-04-15] MEDS: Morphine 10 MG/0.5 ML Oral Syringe SL PRN ×3 (00:55→08:39)
[2020-04-15] MEDS: Albuterol/Ipratropium 3.0-0.5 MG/3 ML Neb Soln NEB PRN (02:22)
--- NOTE | 2020-04-15 09:12 | PCM.PN ---
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 Patient was on home hospice. As per patient and daughter by bedside patient had a stroke at the end of February this year and was seen at [facility]. During hospitalization decision was made to discharge him home hospice. According to the daughter patient has been improving and wanting to get physical therapy to get stronger and get out of bed. Patient was admitted to resume PT/OT Today she seen and examined today in company of daughter and son. Her confusion has resolved. She looks better today. She is AAO x 3. Neck pain is better today. Cervical x-ray was negative. There was no reported fever, chills. VSS. Labs reviewed. INR 3.4 family has decided to take patient back home on hospice tomorrow. Functional Status: Reports: Pain Controlled - Review of Systems General: Reports: No Symptoms HEENT: Reports: No Symptoms Pulmonary: Reports: No Symptoms Cardiovascular: Reports: No Symptoms Gastrointestinal: Reports: No Symptoms Genitourinary: Reports: No Symptoms Musculoskeletal: Reports: No Symptoms Skin: Reports: No Symptoms Neurological: Reports: No Symptoms Psychiatric: Reports: No Symptoms - Patient Data Vitals - Most Recent: Last Vital Signs Temp 98.3 F 04/15/20 08:00 Pulse 71 04/15/20 08:00 Resp 22 H 04/15/20 08:00 BP 140/33 L 04/15/20 08:00 Pulse Ox 96 04/15/20 08:00 Weight - Most Recent: 139 lb 4 oz I&O - Last 24 Hours: Intake & Output 04/14/20 04/15/20 04/15/20 22:59 06:59 14:59 Intake Total 290 180 Output Total 450 325 Balance -160 -145 Lab Results Last 24 Hours: Laboratory Results - last 24 hr 04/14/20 04/14/20 04/14/20 Range/Units 10:52 11:57 11:57 WBC 9.9 (5.0-10.0) 10^3/uL RBC 3.23 L (4.2-5.4) 10^6/uL Hgb 7.6 L (12.0-16.0) g/dL Hct 24.7 L (37.0-47.0) % MCV 76.5 L (80-100) fL MCH 23.5 L (27.0-34.0) pg MCHC 30.8 L (33.0-35.0) g/dL Plt Count 317 (150-450) 10^3/uL PT (9.0-12.0) SEC INR (0.9-1.2) Sodium 140 (136-145) mmol/L Potassium 4.0 (3.5-5.1) mmol/L Chloride 103 (98-107) mmol/L Carbon Dioxide 32 (21-32) mmol/L Anion Gap 9.0 (7-13) mEq/L BUN 31 H (7-18) mg/dL Creatinine 0.73 (0.55-1.02) mg/dL Est Cr Clr Drug Dosing 47.93 mL/min Estimated GFR (MDRD) > 60 Glucose 154 H (74-99) mg/dL POC Glucose 142 H (83-110) mg/dl Calcium 9.5 (8.5-10.1) mg/dL Phosphorus 4.6 (2.6-4.7) mg/dL Magnesium 1.8 (1.8-2.4) mg/dL 04/15/20 04/15/20 Range/Units 06:00 07:51 WBC (5.0-10.0) 10^3/uL RBC (4.2-5.4) 10^6/uL Hgb (12.0-16.0) g/dL Hct (37.0-47.0) % MCV (80-100) fL MCH (27.0-34.0) pg MCHC (33.0-35.0) g/dL Plt Count (150-450) 10^3/uL PT 31.9 H D (9.0-12.0) SEC INR 3.4 H (0.9-1.2) Sodium (136-145) mmol/L Potassium (3.5-5.1) mmol/L Chloride (98-107) mmol/L Carbon Dioxide (21-32) mmol/L Anion Gap (7-13) mEq/L BUN (7-18) mg/dL Creatinine (0.55-1.02) mg/dL Est Cr Clr Drug Dosing mL/min Estimated GFR (MDRD) Glucose (74-99) mg/dL POC Glucose 148 H (83-110) mg/dl Calcium (8.5-10.1) mg/dL Phosphorus (2.6-4.7) mg/dL Magnesium (1.8-2.4) mg/dL [place] Results Last 24 Hours: Microbiology 04/11/20 16:57 Urine Culture - Final Urine, Voided Yeast Isolated Med Orders - Current: Current Medications Acetaminophen (Tylenol) 650 mg PO Q6H PRN PRN Reason: Pain Last Admin: 04/14/20 11:59 Dose: 650 mg Documented by: Albuterol/Ipratropium (Duoneb 3.0-0.5 Mg/3 Ml) 3 ml NEB Q4HRRT PRN PRN Reason: Dyspnea Last Admin: 04/15/20 02:22 Dose: 3 ml Documented by: Atropine Sulfate (Atropine 1% Oph Sol) 0 ml SL Q6H PRN PRN Reason: Other Last Admin: 04/14/20 20:21 Dose: 1 ml Documented by: Furosemide (Lasix) 40 mg PO DAILY [facility] Last Admin: 04/14/20 10:36 Dose: 40 mg Documented by: Magnesium Hydroxide (Milk Of Magnesia) 30 ml PO BID PRN PRN Reason: Constipation, use 2nd Last Admin: 04/12/20 18:34 Dose: 30 ml Documented by: Methyl Salicylate (Icy Hot Cream) 0 gm TOP QID PRN PRN Reason: Pain Last Admin: 04/13/20 21:34 Dose: 1 applic Documented by: Menthol/Zinc Oxide [ Calmoseptine 0.45%- 20%] Cream *Own Med* 1 applic TOP DAILY PRN PRN Reason: Other Last Admin: 04/12/20 15:16 Dose: 1 applic Documented by: Clonidine [Catapres] (0.2 Mg Own Med) 0 each PO BID [facility] Last Admin: 04/14/20 22:53 Dose: Not Given Documented by: Metoprolol Succinate [Toprol Xl] 100 Mg Own Med 0 each PO DAILY [facility] Last Admin: 04/14/20 10:36 Dose: 1 each Documented by: Senna/Docusate Sodium (Senna Plus) 1 tab PO DAILY [facility] Last Admin: 04/14/20 11:59 Dose: 1 tab Documented by: Warfarin Sodium (Pharmacy To Dose - Warfarin) 1 dose .XX ASDIRECTED [facility] Discontinued Medications Acetaminophen (Tylenol) 650 mg PO Q4H PRN PRN Reason: Pain (mild 1-3 )/fever Hydrocodone Bitart/Acetaminophen ([place] 325-5 Mg) 1 - 2 tab PO Q6H [facility] Last Admin: 04/12/20 12:01 Dose: 1 tab Documented by: Hydrocodone Bitart/Acetaminophen ([place] 325-5 Mg) 1 tab PO Q6H PRN PRN Reason: Pain (moderate 4-6) Hydrocodone Bitart/Acetaminophen ([place] 325-5 Mg) 2 tab PO Q6H PRN PRN Reason: Pain (severe 7-10) Hydrocodone Bitart/Acetaminophen ([place] 325-5 Mg) 1 tab PO Q6H PRN PRN Reason: Pain (moderate 4-6) Hydrocodone Bitart/Acetaminophen ([place] 325-5 Mg) 2 tab PO Q6H PRN PRN Reason: Pain (severe 7-10) Hydrocodone Bitart/Acetaminophen ([place] 325-5 Mg) 1 tab PO Q6H PRN PRN Reason: Pain (moderate 4-6) Last Admin: 04/13/20 09:36 Dose: 1 tab Documented by: Hydrocodone Bitart/Acetaminophen ([place] 325-5 Mg) 2 tab PO Q6H PRN PRN Reason: Pain (severe 7-10) Last Admin: 04/13/20 18:19 Dose: 2 tab Documented by: Albuterol (Proventil Hfa) gm INH Q4H PRN PRN Reason: Wheezing Albuterol/Ipratropium (Duoneb 3.0-0.5 Mg/3 Ml) 3 ml INH Q4H PRN PRN Reason: Wheezing Aspirin (Halfprin) 81 mg PO DAILY [facility] Clonidine HCl (Catapres) 0.2 mg PO ONETIME ONE Stop: 04/11/20 21:01 Last Admin: 04/11/20 20:56 Dose: 0.2 mg Documented by: Docusate Sodium (Colace) 100 mg PO DAILY PRN PRN Reason: Constipation Escitalopram Oxalate (Lexapro) 10 mg PO DAILY [facility] Last Admin: 04/12/20 09:38 Dose: Not Given Documented by: Ferrous Sulfate (Ferrous Sulfate) 325 mg PO .SUPPER [facility] Folic Acid (Folic Acid) 1 mg PO DAILY [facility] Furosemide (Lasix) 40 mg PO DAILY [facility] Hydrochlorothiazide (Hydrochlorothiazide) 25 mg PO DAILY [facility] Lorazepam (Ativan) 0.5 mg PO Q8H PRN PRN Reason: Anxiety Last Admin: 04/12/20 21:39 Dose: 0.5 mg Documented by: Morphine Sulfate (Morphine 10 Mg/0.5 Ml Oral Syringe) 5 mg SL Q4H PRN PRN Reason: Pain Last Admin: 04/13/20 22:18 Dose: 5 mg Documented by: Morphine Sulfate (Morphine 10 Mg/0.5 Ml Oral Syringe) 1 mg SL Q1H PRN PRN Reason: Pain Last Admin: 04/15/20 08:39 Dose: 1 mg Documented by: Non-Formulary Medication (Amlodipine Besylate [Amlodipine Besylate]) 10 mg PO DAILY [facility] Non-Formulary Medication (Calcium Carbonate/Vitamin D3 [Calcium 250+D]) 1 each PO DAILY [facility] Non-Formulary Medication (Metformin [Glucophage]) 1,000 mg PO BIDMEALS [facility] Last Admin: 04/11/20 18:28 Dose: Not Given Documented by: (Hydralazine [ Apresoline] 10 Mg)* Pt Own Med* 10 mg PO Q6H [facility] Last Admin: 04/13/20 21:48 Dose: Not Given Documented by: Oxycodone/Acetaminophen (Percocet 325-5 Mg) 1 tab PO BID [facility] Pantoprazole Sodium (Protonix) 40 mg PO DAILY [facility] Warfarin Sodium (Coumadin) 5 mg PO DAILY [facility] Warfarin Sodium (Coumadin) 5 mg PO ONETIME ONE Stop: 04/12/20 14:01 Last Admin: 04/12/20 14:35 Dose: 5 mg Documented by: Warfarin Sodium (Coumadin) 5 mg PO ONETIME ONE Stop: 04/13/20 14:01 Last Admin: 04/13/20 15:30 Dose: 5 mg Documented by: Warfarin Sodium (Coumadin) 5 mg PO ONETIME ONE Stop: 04/14/20 14:01 Last Admin: 04/14/20 14:17 Dose: 5 mg Documented by: - Exam Quality Assessment: DVT Prophylaxis General: Alert, Oriented HEENT: Pupils Equal, Pupils Reactive, EOMI, Mucous Membr. Moist/[place] Neck: Supple Lungs: Clear to Auscultation, Normal Respiratory Effort Cardiovascular: Regular Rate, Regular Rhythm GI/Abdominal Exam: Normal Bowel Sounds, Soft, Non-Tender, No Organomegaly, No Distention, No Abnormal Bruit, No Mass, Pelvis Stable (Female) Exam: Normal External Exam, Normal Speculum Exam, Normal Bimanual Exam Back Exam: Normal Inspection, Full Range of Motion Extremities: Normal Inspection, Normal Range of Motion, Non-Tender, No Pedal Edema, Normal Capillary Refill Skin: Warm, Dry, Intact Wound/Incisions: Healing Well Neurological: No New Focal Deficit Psy/Mental Status: Alert, Normal Affect, Normal Mood Sepsis Event Note - Evaluation Sepsis Screening Result: No Definite Risk - Focused Exam Vital Signs: Vital Signs Temp Pulse Resp BP Pulse Ox 04/15/20 08:00 98.3 F 71 22 H 140/33 L 96 04/15/20 00:00 99.2 F 60 20 97 Date Exam was Performed: 04/15/20 Time Exam was Performed: 09:45 - Problem List & Annotations (1) CVA (cerebral vascular accident) SNOMED Code(s): 950707403 Code(s): I63.9 - CEREBRAL INFARCTION, UNSPECIFIED Status: Acute Current Visit: Yes (2) Left-sided weakness SNOMED Code(s): 877614494 Code(s): R53.1 - WEAKNESS Status: Acute Current Visit: Yes (3) Neck pain on right side SNOMED Code(s): 94363286 Code(s): M54.2 - CERVICALGIA Status: Acute Current Visit: Yes (4) Acute metabolic encephalopathy SNOMED Code(s): 27307512, 587023279 Code(s): G93.41 - METABOLIC ENCEPHALOPATHY Status: Acute Current Visit: Yes - Problem List Review Problem List Initiated/Reviewed/Updated: Yes - My Orders Last 24 Hours: My Active Orders 04/14/20 09:00 Dietary Supplements [RC] BIDAC Docusate Sodium/Sennosides [Senna Plus] 1 tab PO DAILY 04/14/20 11:05 Acetaminophen [Tylenol] 650 mg PO Q6H PRN 04/14/20 19:38 RT Aerosol Therapy [RC] ASDIRECTED Albuterol/Ipratropium [DuoNeb 3.0-0.5 MG/3 ML] 3 ml NEB Q4HRRT PRN 04/14/20 19:59 Atropine 1% [Atropine 1% Ophth Soln] 0 ml SL Q6H PRN 04/16/20 07:00 CORONAVIRUS COVID-19 PCR PHL Routine - Plan Plan:: #Acute encephalopathy likely due to medications. -Now resolved -Avoid Lorazepam -Percocet for pain -Continue to monitor mental status #Generalized weakness following left sided CVA -Patient presented with increasing weakness requesting for PT/OT -She was on home hospice but her PCP had to take her off hospice service so she will be able to get PT/OT -Continue PT/T -Fall precautions #Left sided CVA with residual weakness -PT/OT #INR 3.4 -Pharmacy dosing warfarin -Daily INR #Neck pain -Cervical xray: negative -Tylenol prn #HTN -On Amlodipine #DNR/DNI #Disposition -Home with hospice tomorrow
[2020-04-15] MEDS: Furosemide 20 MG Tab **OWN MED PO SCH (09:24)
[2020-04-15] MEDS: CLONIDINE 0.2 MG PO SCH ×2 (09:25→20:08)
[2020-04-15] MEDS: METOPROLOL SUCCINATE 100 MG PO SCH (09:25)
[2020-04-15] MEDS: Acetaminophen/HYDROcodone 325-5 MG Tab PO PRN (12:10)
[2020-04-15] MEDS: Morphine 10 MG/0.5 ML Oral Syringe PO PRN (20:08)
[2020-04-16] MEDS: Morphine 10 MG/0.5 ML Oral Syringe PO PRN ×3 (00:08→07:57)
[2020-04-16] MEDS ORDERED: Morphine 10 MG/0.5 ML Oral Syringe PO PRN (09:14)
[2020-04-16] MEDS: Furosemide 20 MG Tab **OWN MED PO SCH (09:17)
[2020-04-16] MEDS: CLONIDINE 0.2 MG PO SCH (09:18)
[2020-04-16] MEDS: METOPROLOL SUCCINATE 100 MG PO SCH (09:18)
--- NOTE | 2020-04-16 09:26 | PCM.PN ---
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 Patient was on home hospice. As per patient and daughter by bedside patient had a stroke at the end of February this year and was seen at [facility]. During hospitalization decision was made to discharge him home hospice. According to the daughter patient has been improving and wanting to get physical therapy to get stronger and get out of bed. Patient was admitted to resume PT/OT Today she seen and examined today in company of daughter. She is doing well. Her confusion has resolved. She is AAO x 3. There was no reported fever, chills. VSS. Patient now on palliative care pending discharge home with hospice. Functional Status: Reports: Pain Controlled - Review of Systems General: Reports: No Symptoms HEENT: Reports: No Symptoms Pulmonary: Reports: No Symptoms Cardiovascular: Reports: No Symptoms Gastrointestinal: Reports: No Symptoms Genitourinary: Reports: No Symptoms Musculoskeletal: Reports: No Symptoms Skin: Reports: No Symptoms Neurological: Reports: No Symptoms Psychiatric: Reports: No Symptoms - Patient Data Vitals - Most Recent: Last Vital Signs Temp 99.2 F 04/16/20 07:45 Pulse 98 04/16/20 07:45 Resp 18 04/16/20 07:45 BP 134/48 L 04/16/20 07:45 Pulse Ox 93 L 04/16/20 07:45 Weight - Most Recent: 136 lb 1.6 oz I&O - Last 24 Hours: Intake & Output 04/15/20 04/16/20 04/16/20 22:59 06:59 14:59 Intake Total 100 100 Output Total 300 450 Balance -200 -350 Lab Results Last 24 Hours: Laboratory Results - last 24 hr 04/16/20 Range/Units 07:45 POC Glucose 131 H (83-110) mg/dl Med Orders - Current: Current Medications Acetaminophen (Tylenol) 650 mg PO Q6H PRN PRN Reason: Pain Last Admin: 04/14/20 11:59 Dose: 650 mg Documented by: Hydrocodone Bitart/Acetaminophen ([place] 325-5 Mg) 1 tab PO Q6H PRN PRN Reason: Pain (mild 1-3) Last Admin: 04/15/20 12:10 Dose: 1 tab Documented by: Albuterol/Ipratropium (Duoneb 3.0-0.5 Mg/3 Ml) 3 ml NEB Q4HRRT PRN PRN Reason: Dyspnea Last Admin: 04/15/20 02:22 Dose: 3 ml Documented by: Atropine Sulfate (Atropine 1% Oph Soln) 0 ml SL Q6H PRN PRN Reason: Other Last Admin: 04/14/20 20:21 Dose: 1 ml Documented by: Furosemide (Lasix) 40 mg PO DAILY [facility] Last Admin: 04/16/20 09:17 Dose: 40 mg Documented by: Magnesium Hydroxide (Milk Of Magnesia) 30 ml PO BID PRN PRN Reason: Constipation, use 2nd Last Admin: 04/12/20 18:34 Dose: 30 ml Documented by: Methyl Salicylate (Icy Hot Cream) 0 gm TOP QID PRN PRN Reason: Pain Last Admin: 04/13/20 21:34 Dose: 1 applic Documented by: Morphine Sulfate (Morphine 10 Mg/0.5 Ml Oral Syringe) 10 mg PO Q2H PRN PRN Reason: Pain Menthol/Zinc Oxide [ Calmoseptine 0.45%- 20%] Cream *Own Med* 1 applic TOP DAILY PRN PRN Reason: Other Last Admin: 04/12/20 15:16 Dose: 1 applic Documented by: Clonidine [Catapres] (0.2 Mg Own Med) 0 each PO BID [facility] Last Admin: 04/16/20 09:18 Dose: 1 each Documented by: Metoprolol Succinate [Toprol Xl] 100 Mg Own Med 0 each PO DAILY [facility] Last Admin: 04/16/20 09:18 Dose: 1 each Documented by: Senna/Docusate Sodium (Senna Plus) 1 tab PO DAILY [facility] Last Admin: 04/15/20 09:25 Dose: Not Given Documented by: Warfarin Sodium (Pharmacy To Dose - Warfarin) 1 dose .XX ASDIRECTED [facility] Discontinued Medications Acetaminophen (Tylenol) 650 mg PO Q4H PRN PRN Reason: Pain (mild 1-3 )/fever Hydrocodone Bitart/Acetaminophen ([place] 325-5 Mg) 1 - 2 tab PO Q6H [facility] Last Admin: 04/12/20 12:01 Dose: 1 tab Documented by: Hydrocodone Bitart/Acetaminophen ([place] 325-5 Mg) 1 tab PO Q6H PRN PRN Reason: Pain (moderate 4-6) Hydrocodone Bitart/Acetaminophen ([place] 325-5 Mg) 2 tab PO Q6H PRN PRN Reason: Pain (severe 7-10) Hydrocodone Bitart/Acetaminophen ([place] 325-5 Mg) 1 tab PO Q6H PRN PRN Reason: Pain (moderate 4-6) Hydrocodone Bitart/Acetaminophen ([place] 325-5 Mg) 2 tab PO Q6H PRN PRN Reason: Pain (severe 7-10) Hydrocodone Bitart/Acetaminophen ([place] 325-5 Mg) 1 tab PO Q6H PRN PRN Reason: Pain (moderate 4-6) Last Admin: 04/13/20 09:36 Dose: 1 tab Documented by: Hydrocodone Bitart/Acetaminophen ([place] 325-5 Mg) 2 tab PO Q6H PRN PRN Reason: Pain (severe 7-10) Last Admin: 04/13/20 18:19 Dose: 2 tab Documented by: Albuterol (Proventil Hfa) gm INH Q4H PRN PRN Reason: Wheezing Albuterol/Ipratropium (Duoneb 3.0-0.5 Mg/3 Ml) 3 ml INH Q4H PRN PRN Reason: Wheezing Aspirin (Halfprin) 81 mg PO DAILY [facility] Clonidine HCl (Catapres) 0.2 mg PO ONETIME ONE Stop: 04/11/20 21:01 Last Admin: 04/11/20 20:56 Dose: 0.2 mg Documented by: Docusate Sodium (Colace) 100 mg PO DAILY PRN PRN Reason: Constipation Escitalopram Oxalate (Lexapro) 10 mg PO DAILY [facility] Last Admin: 04/12/20 09:38 Dose: Not Given Documented by: Ferrous Sulfate (Ferrous Sulfate) 325 mg PO .SUPPER [facility] Folic Acid (Folic Acid) 1 mg PO DAILY [facility] Furosemide (Lasix) 40 mg PO DAILY [facility] Hydrochlorothiazide (Hydrochlorothiazide) 25 mg PO DAILY [facility] Lorazepam (Ativan) 0.5 mg PO Q8H PRN PRN Reason: Anxiety Last Admin: 06/25/20 21:39 Dose: 0.5 mg Documented by: Morphine Sulfate (Morphine 10 Mg/0.5 Ml Oral Syringe) 5 mg SL Q4H PRN PRN Reason: Pain Last Admin: 04/13/20 22:18 Dose: 5 mg Documented by: Morphine Sulfate (Morphine 10 Mg/0.5 Ml Oral Syringe) 1 mg SL Q1H PRN PRN Reason: Pain Last Admin: 04/15/20 08:39 Dose: 1 mg Documented by: Morphine Sulfate (Morphine 10 Mg/0.5 Ml Oral Syringe) 1 mg PO Q2H PRN PRN Reason: Pain Last Admin: 04/16/20 07:57 Dose: 1 mg Documented by: Morphine Sulfate (Morphine 10 Mg/0.5 Ml Oral Syringe) 20 mg PO Q2H PRN PRN Reason: Pain Non-Formulary Medication (Amlodipine Besylate [Amlodipine Besylate]) 10 mg PO DAILY [facility] Non-Formulary Medication (Calcium Carbonate/Vitamin D3 [Calcium 250+D]) 1 each PO DAILY [facility] Non-Formulary Medication (Metformin [Gluc[facility]]) [facility] Last Admin: 04/11/20 18:28 Dose: Not Given Documented by: (Hydralazine [ Apresoline] 10 Mg)* Pt Own Med* 10 mg PO Q6H [facility] Last Admin: 04/13/20 21:48 Dose: Not Given Documented by: Oxycodone/Acetaminophen (Percocet 325-5 Mg) 1 tab PO BID [facility] Pantoprazole Sodium (Protonix) 40 mg PO DAILY [facility] Warfarin Sodium (Coumadin) 5 mg PO DAILY [facility] Warfarin Sodium (Coumadin) 5 mg PO ONETIME ONE Stop: 04/12/20 14:01 Last Admin: 04/12/20 14:35 Dose: 5 mg Documented by: Warfarin Sodium (Coumadin) 5 mg PO ONETIME ONE Stop: 04/13/20 14:01 Last Admin: 04/13/20 15:30 Dose: 5 mg Documented by: Warfarin Sodium (Coumadin) 5 mg PO ONETIME ONE Stop: 04/14/20 14:01 Last Admin: 04/14/20 14:17 Dose: 5 mg Documented by: - Exam Quality Assessment: DVT Prophylaxis General: Alert, Oriented HEENT: Pupils Equal, Pupils Reactive, EOMI, Mucous Membr. Moist/[place] Neck: Supple Lungs: Clear to Auscultation, Normal Respiratory Effort Cardiovascular: Regular Rate, Regular Rhythm GI/Abdominal Exam: Normal Bowel Sounds, Soft, Non-Tender, No Organomegaly, No Distention, No Abnormal Bruit, No Mass, Pelvis Stable (Female) Exam: Normal External Exam, Normal Speculum Exam, Normal Bimanual Exam Back Exam: Normal Inspection, Full Range of Motion Extremities: Normal Inspection, Normal Range of Motion, Non-Tender, No Pedal Edema, Normal Capillary Refill Skin: Warm, Dry, Intact Wound/Incisions: Healing Well Neurological: No New Focal Deficit Psy/Mental Status: Alert, Normal Affect, Normal Mood Sepsis Event Note - Evaluation Sepsis Screening Result: No Definite Risk - Focused Exam Vital Signs: Vital Signs Temp Pulse Resp BP Pulse Ox 04/16/20 07:45 99.2 F 98 18 134/48 L 93 L 04/16/20 04:00 98.7 F 79 28 H 144/40 H 95 04/16/20 00:00 98.5 F 95 20 162/61 H 94 L Date Exam was Performed: 04/16/20 Time Exam was Performed: 09:27 - Problem List & Annotations (1) CVA (cerebral vascular accident) SNOMED Code(s): 868681895 Code(s): I63.9 - CEREBRAL INFARCTION, UNSPECIFIED Status: Acute Current Visit: Yes (2) Left-sided weakness SNOMED Code(s): 124844333 Code(s): R53.1 - WEAKNESS Status: Acute Current Visit: Yes (3) Neck pain on right side SNOMED Code(s): 98431870 Code(s): M54.2 - CERVICALGIA Status: Acute Current Visit: Yes (4) Acute metabolic encephalopathy SNOMED Code(s): 87607399, 713927851 Code(s): G93.41 - METABOLIC ENCEPHALOPATHY Status: Acute Current Visit: Yes - Problem List Review Problem List Initiated/Reviewed/Updated: Yes - My Orders Last 24 Hours: My Active Orders 04/15/20 10:18 Acetaminophen/HYDROcodone [[place] 325-5 MG] 1 tab PO Q6H PRN 04/16/20 09:17 Morphine [Morphine 10 MG/0.5 ML Oral Syringe] 10 mg PO Q2H PRN - Plan Plan:: #Acute encephalopathy likely due to medications. -Now resolved -Avoid Lorazepam -Continue to monitor mental status #Generalized weakness following left sided CVA -Patient presented with increasing weakness requesting for PT/OT -Patient was unable to tolerate physical therapy -Family have decided to take patient back home on hospice -Hold PT/OT -Fall precautions #Left sided CVA with residual weakness -Patient now on palliative care service #Neck pain -Cervical xray: negative -Tylenol prn #HTN -Continue current care #DNR/DNI #Disposition -patient on palliative care service. Pending home discharge with hospice
[2020-04-16] MEDS ORDERED: **NO WARFARIN TODAY ONE (14:00)
[2020-04-16] MEDS ORDERED: Phytonadione ORAL 2.5mg/2.5ml Soln Simple Syrup U/D PO ONE ×2 (14:18→14:45)
[2020-04-16] MEDS: Albuterol/Ipratropium 3.0-0.5 MG/3 ML Neb Soln NEB PRN (18:37)
[2020-04-16] MEDS: Morphine 10 MG/0.5 ML Oral Syringe SL PRN (20:24)
[2020-04-17] MEDS: Morphine 10 MG/0.5 ML Oral Syringe SL PRN ×2 (01:48→10:39)
[2020-04-17] MEDS ORDERED: diphenhydrAMINE 25 MG Tab PO ONE (02:03)
[2020-04-17 08:43] VITALS: BP 144/35; PULSE 64
[2020-04-17] MEDS ORDERED: diphenhydrAMINE/Zinc Acetate 2% Crm 28.4 GM Tube TOP PRN (08:52)
[2020-04-17] MEDS: Furosemide 20 MG Tab **OWN MED PO SCH (08:58)
[2020-04-17] MEDS: Acetaminophen/HYDROcodone 325-5 MG Tab PO PRN (09:04)
--- NOTE | 2020-04-17 09:30 | PCM.DCSUM1 ---
Discharge Summary - Hospital Course Free Text/Narrative:: Quinn is a 89 y/o F with PMH of HTN, DVT, recent h/o CVA with residual left sided weakness who came to the ED for weakness. Patient was on home hospice. As per patient and daughter by bedside patient had a stroke at the end of February this year and was seen at [facility]. During hospitalization decision was made to discharge him home hospice. According to the daughter patient has been improving and wanting to get physical therapy to get stronger and get out of bed. Patient was admitted to resume PT/OT. She was unable to tolerate PT/OT. Her course was complicated by acute encephalopathy due to benzodiazepines. Encephalopathy resolved after discontinuation of Lorazepam. Palliative care was consulted and family decided to place patient back on home hospice. She was safely discharged home on hospice. Diagnosis: Stroke: No - Discharge Data Discharge Date: 04/17/20 Discharge Disposition: DC/Tfer to Hospice - Home 51 Condition: Good - Referral to Home Health Primary Care Physician: Umberto Weeks MD - Discharge Diagnosis/Problem(s) (1) CVA (cerebral vascular accident) SNOMED Code(s): 613578193 ICD Code: I63.9 - CEREBRAL INFARCTION, UNSPECIFIED Status: Acute Current Visit: Yes (2) Left-sided weakness SNOMED Code(s): 760687940 ICD Code: R53.1 - WEAKNESS Status: Acute Current Visit: Yes (3) Neck pain on right side SNOMED Code(s): 81386343 ICD Code: M54.2 - CERVICALGIA Status: Acute Current Visit: Yes (4) Acute metabolic encephalopathy SNOMED Code(s): 01113567, 927859340 ICD Code: G93.41 - METABOLIC ENCEPHALOPATHY Status: Acute Current Visit: Yes - Patient Summary/Data Consults: Consultations 04/11/20 15:54 OT Evaluation and Treatment [CONS] Routine PT Evaluation and Treatment [CONS] Routine 04/12/20 08:18 Consult to Palliative Care [CONS] Routine - Patient Instructions Diet: Regular Diet as Tolerated Activity: Bedrest - Discharge Plan *PRESCRIPTION DRUG MONITORING PROGRAM REVIEWED*: Not Applicable *COPY OF PRESCRIPTION DRUG MONITORING REPORT IN PATIENT ERWIN: Not Applicable Prescriptions/Med Rec: diphenhydrAMINE/Zinc Acetate [Banophen Anti-Itch 2%] 1 gm TOP QID PRN #1 tube PRN Reason: Itching Home Medications: Home Meds Metoprolol Succinate [Toprol XL] 100 mg PO DAILY 04/20/15 [History] Pantoprazole [ProTONIX] 40 mg PO DAILY PRN 03/24/16 [History] Albuterol/Ipratropium [DuoNeb 3.0-0.5 MG/3 ML] 3 ml INH BID 08/23/19 [History] Aspirin [Adult Low Dose Aspirin EC] 81 mg PO DAILY 08/23/19 [History] Warfarin [Coumadin] 5 mg PO DAILY 03/09/20 [History] amLODIPine Besylate [Amlodipine Besylate] 10 mg PO DAILY 03/09/20 [History] Furosemide [Lasix] 40 mg PO DAILY 04/11/20 [History] Menthol/Zinc Oxide [Menthol-Zinc Oxide 0.45%-20%] 1 applic TOP DAILY PRN 04/11/20 [History] Sennosides/Docusate Sodium [Senna-Docusate Sodium Tablet] 2 tab PO BID PRN 04/11/20 [History] cloNIDine [Catapres] 0.2 mg PO BID 04/11/20 [History] hydrALAZINE [Apresoline] 10 mg PO QID 04/11/20 [History] Acetaminophen/HYDROcodone [[place] 325-5 MG] 1 tab PO Q6H PRN 04/12/20 [History] Acetaminophen/HYDROcodone [[place] 325-5 MG] 2 tab PO Q6H PRN 04/12/20 [History] Albuterol Sulfate 2.5 mg IH Q4H PRN 04/13/20 [History] Carboxymethylcellulose Sodium [Refresh Tears 0.5%] 15 ml OP DAILY PRN 04/13/20 [History] Dextrose [Glucose Gel] 15 gram PO DAILY PRN 04/13/20 [History] Glucagon,Human Recombinant [Glucagon Emergency Kit] 1 mg IJ DAILY PRN 04/13/20 [History] Lactulose [Cephulac] 10 gm PO DAILY PRN 04/13/20 [History] Magnesium Hydroxide [Milk of Magnesia] 2,400 mg PO DAILY PRN 04/13/20 [History] Menthol [Biofreeze] 118 ml TP BID PRN 04/13/20 [History] Nystatin 1 each MC DAILY PRN 04/13/20 [History] polyethylene glycoL 3350 [MiraLAX] 17 gm PO BID PRN 04/13/20 [History] Escitalopram Oxalate [Lexapro] 10 mg PO DAILY 04/14/20 [History] diphenhydrAMINE/Zinc Acetate [Banophen Anti-Itch 2%] 1 gm TOP QID PRN #1 tube 04/17/20 [Rx] Oxygen Therapy Mode: Nasal Cannula (2 L prn) Referrals: Umberto Weeks MD [Primary Care Provider] - - Discharge Summary/Plan Comment DC Time >30 min.: Yes - General Info Date of Service: 04/17/20 Admission Dx/Problem (Free Text: Admission Diagnosis/Problem Admission Diagnosis/Problem Generalized Weakness/Left sided CVA with r esidual left sided weakness Functional Status: Reports: Pain Controlled - Review of Systems General: Reports: No Symptoms HEENT: Reports: No Symptoms Pulmonary: Reports: No Symptoms Cardiovascular: Reports: No Symptoms Gastrointestinal: Reports: No Symptoms Genitourinary: Reports: No Symptoms Musculoskeletal: Reports: No Symptoms Skin: Reports: No Symptoms Neurological: Reports: No Symptoms Psychiatric: Reports: No Symptoms - Patient Data Vitals - Most Recent: Last Vital Signs Temp 97.6 F 04/17/20 08:00 Pulse 64 04/17/20 08:00 Resp 20 04/17/20 08:00 BP 144/35 H 04/17/20 08:00 Pulse Ox 97 04/17/20 08:00 Weight - Most Recent: 139 lb 4.8 oz I&O - Last 24 hours: Intake & Output 04/16/20 04/17/20 04/17/20 22:59 06:59 14:59 Intake Total 480 400 230 Output Total 150 350 Balance 330 50 230 Lab Results - Last 24 hrs: Laboratory Results - last 24 hr 04/16/20 04/17/20 Range/Units 13:32 06:12 PT 51.8 H D 13.1 H D (9.0-12.0) SEC INR 5.5 H* 1.4 H (0.9-1.2) Med Orders - Current: Current Medications Acetaminophen (Tylenol) 650 mg PO Q6H PRN PRN Reason: Pain Last Admin: 04/14/20 11:59 Dose: 650 mg Documented by: Hydrocodone Bitart/Acetaminophen ([place] 325-5 Mg) 1 tab PO Q6H PRN PRN Reason: Pain (mild 1-3) Last Admin: 04/17/20 09:04 Dose: 1 tab Documented by: Albuterol/Ipratropium (Duoneb 3.0-0.5 Mg/3 Ml) 3 ml NEB Q4HRRT PRN PRN Reason: Dyspnea Last Admin: 04/16/20 18:37 Dose: 3 ml Documented by: Atropine Sulfate (Atropine 1% Ophth Soln) 0 ml SL Q6H PRN PRN Reason: Other Last Admin: 04/14/20 20:21 Dose: 1 ml Documented by: Furosemide (Lasix) 40 mg PO DAILY [facility] Last Admin: 04/17/20 08:58 Dose: 40 mg Documented by: Magnesium Hydroxide (Milk Of Magnesia) 30 ml PO BID PRN PRN Reason: Constipation, use 2nd Last Admin: 04/12/20 18:34 Dose: 30 ml Documented by: Methyl Salicylate (Icy Hot Cream) 0 gm TOP QID PRN PRN Reason: Pain Last Admin: 04/13/20 21:34 Dose: 1 applic Documented by: Morphine Sulfate (Morphine 10 Mg/0.5 Ml Oral Syringe) 10 mg SL Q2H PRN PRN Reason: Pain (severe 7-10) Last Admin: 04/17/20 01:48 Dose: 5 mg Documented by: Menthol/Zinc Oxide [ Calmoseptine 0.45%- 20%] Cream *Own Med* 1 applic TOP DAILY PRN PRN Reason: Other Last Admin: 04/12/20 15:16 Dose: 1 applic Documented by: Clonidine [Catapres] (0.2 Mg Own Med) 0 each PO BID [facility] Last Admin: 04/16/20 09:18 Dose: 1 each Documented by: Metoprolol Succinate [Toprol Xl] 100 Mg Own Med 0 each PO DAILY [facility] Last Admin: 04/16/20 09:18 Dose: 1 each Documented by: Senna/Docusate Sodium (Senna Plus) 1 tab PO DAILY [facility] Last Admin: 04/17/20 08:58 Dose: 1 tab Documented by: Warfarin Sodium (Pharmacy To Dose - Warfarin) 1 dose .XX ASDIRECTED [facility] Zinc Acetate/Diphenhydramine (Banophen Anti-Itch 2% Crm) 1 gm TOP QID PRN PRN Reason: Itching Discontinued Medications Acetaminophen (Tylenol) 650 mg PO Q4H PRN PRN Reason: Pain (mild 1-3 )/fever Hydrocodone Bitart/Acetaminophen ([place] 325-5 Mg) 1 - 2 tab PO Q6H [facility] Last Admin: 04/12/20 12:01 Dose: 1 tab Documented by: Hydrocodone Bitart/Acetaminophen ([place] 325-5 Mg) 1 tab PO Q6H PRN PRN Reason: Pain (moderate 4-6) Hydrocodone Bitart/Acetaminophen ([place] 325-5 Mg) 2 tab PO Q6H PRN PRN Reason: Pain (severe 7-10) Hydrocodone Bitart/Acetaminophen ([place] 325-5 Mg) 1 tab PO Q6H PRN PRN Reason: Pain (moderate 4-6) Hydrocodone Bitart/Acetaminophen ([place] 325-5 Mg) 2 tab PO Q6H PRN PRN Reason: Pain (severe 7-10) Hydrocodone Bitart/Acetaminophen ([place] 325-5 Mg) 1 tab PO Q6H PRN PRN Reason: Pain (moderate 4-6) Last Admin: 04/13/20 09:36 Dose: 1 tab Documented by: Hydrocodone Bitart/Acetaminophen ([place] 325-5 Mg) 2 tab PO Q6H PRN PRN Reason: Pain (severe 7-10) Last Admin: 04/13/20 18:19 Dose: 2 tab Documented by: Albuterol (Proventil Hfa) gm INH Q4H PRN PRN Reason: Wheezing Albuterol/Ipratropium (Duoneb 3.0-0.5 Mg/3 Ml) 3 ml INH Q4H PRN PRN Reason: Wheezing Aspirin (Halfprin) 81 mg PO DAILY [facility] Clonidine HCl (Catapres) 0.2 mg PO ONETIME ONE Stop: 04/11/20 21:01 Last Admin: 04/11/20 20:56 Dose: 0.2 mg Documented by: Diphenhydramine HCl (Benadryl) 25 mg PO ONETIME ONE Stop: 04/17/20 02:04 Last Admin: 04/17/20 02:19 Dose: 25 mg Documented by: Docusate Sodium (Colace) 100 mg PO DAILY PRN PRN Reason: Constipation Escitalopram Oxalate (Lexapro) 10 mg PO DAILY [facility] Last Admin: 04/12/20 09:38 Dose: Not Given Documented by: Ferrous Sulfate (Ferrous Sulfate) 325 mg PO .SUPPER [facility] Folic Acid (Folic Acid) 1 mg PO DAILY [facility] Furosemide (Lasix) 40 mg PO DAILY [facility] Hydrochlorothiazide (Hydrochlorothiazide) 25 mg PO DAILY [facility] Lorazepam (Ativan) 0.5 mg PO Q8H PRN PRN Reason: Anxiety Last Admin: 04/12/20 21:39 Dose: 0.5 mg Documented by: Morphine Sulfate (Morphine 10 Mg/0.5 Ml Oral Syringe) 5 mg SL Q4H PRN PRN Reason: Pain Last Admin: 04/13/20 22:18 Dose: 5 mg Documented by: Morphine Sulfate (Morphine 10 Mg/0.5 Ml Oral Syringe) 1 mg SL Q1H PRN PRN Reason: Pain Last Admin: 04/15/20 08:39 Dose: 1 mg Documented by: Morphine Sulfate (Morphine 10 Mg/0.5 Ml Oral Syringe) 1 mg PO Q2H PRN PRN Reason: Pain Last Admin: 04/16/20 07:57 Dose: 1 mg Documented by: Morphine Sulfate (Morphine 10 Mg/0.5 Ml Oral Syringe) 20 mg PO Q2H PRN PRN Reason: Pain Non-Formulary Medication (Amlodipine Besylate [Amlodipine Besylate]) 10 mg PO DAILY [facility] Non-Formulary Medication (Calcium Carbonate/Vitamin D3 [Calcium 250+D]) 1 each PO DAILY [facility] Non-Formulary Medication (Metformin [Glucophage]) 1,000 mg PO BIDMEALS [facility] Last Admin: 04/11/20 18:28 Dose: Not Given Documented by: (Hydralazine [ Apresoline] 10 Mg)* Pt Own Med* 10 mg PO Q6H [facility] Last Admin: 04/13/20 21:48 Dose: Not Given Documented by: No Warfarin Today* (*) 0 each .XX ONETIME ONE Stop: 04/16/20 14:01 Last Admin: 04/16/20 15:31 Dose: Not Given Documented by: Oxycodone/Acetaminophen (Percocet 325-5 Mg) 1 tab PO BID [facility] Pantoprazole Sodium (Protonix) 40 mg PO DAILY [facility] Phytonadione (Aquamephyton) 5 mg PO ONETIME ONE Stop: 04/16/20 14:46 Last Admin: 04/16/20 15:24 Dose: 5 mg Documented by: Warfarin Sodium (Coumadin) 5 mg PO DAILY [facility] Warfarin Sodium (Coumadin) 5 mg PO ONETIME ONE Stop: 04/12/20 14:01 Last Admin: 04/12/20 14:35 Dose: 5 mg Documented by: Warfarin Sodium (Coumadin) 5 mg PO ONETIME ONE Stop: 04/13/20 14:01 Last Admin: 04/13/20 15:30 Dose: 5 mg Documented by: Warfarin Sodium (Coumadin) 5 mg PO ONETIME ONE Stop: 04/14/20 14:01 Last Admin: 04/14/20 14:17 Dose: 5 mg Documented by: - Exam General: Reports: Alert, Oriented HEENT: Reports: Pupils Equal, Pupils Reactive, EOMI, Mucous Membr. Moist/[place] Neck: Reports: Supple Lungs: Reports: Clear to Auscultation, Normal Respiratory Effort Cardiovascular: Reports: Regular Rate, Regular Rhythm GI/Abdominal Exam: Normal Bowel Sounds, Soft, Non-Tender, No Organomegaly, No Distention, No Abnormal Bruit, No Mass, Pelvis Stable (Female) Exam: Normal External Exam, Normal Speculum Exam, Normal Bimanual Exam Rectal (Female) Exam: Normal Exam, Normal Rectal Tone Back Exam: Reports: Normal Inspection, Full Range of Motion Extremities: Normal Inspection, Normal Range of Motion, Non-Tender, No Pedal Edema, Normal Capillary Refill Skin: Reports: Warm, Dry, Intact Wound/Incisions: Reports: Healing Well Neurological: Reports: No New Focal Deficit Psy/Mental Status: Reports: Alert, Normal Affect, Normal Mood
== END 2020-04-17 12:45 | disposition hospice, home (50) ==
LOC: DL.ED 13:39 → DL.MS 14:03
PROVIDERS: ADMIT Student in an Organized Health Care Education/Training Program; ATTEND Student in an Organized Health Care Education/Training Program
DX: I69.354 Hemiplegia and hemiparesis following cerebral infarction affecting left non-dominant side (principal); G93.41 Metabolic encephalopathy; M54.2 Cervicalgia; E78.00 Pure hypercholesterolemia, unspecified; R79.1 Abnormal coagulation profile; J44.9 Chronic obstructive pulmonary disease, unspecified; I11.0 Hypertensive heart disease with heart failure; I50.9 Heart failure, unspecified; E11.9 Type 2 diabetes mellitus without complications; K21.9 Gastro-esophageal reflux disease without esophagitis; I48.91 Unspecified atrial fibrillation; Z86.718 Personal history of other venous thrombosis and embolism; Z66 Do not resuscitate; Z88.0 Allergy status to penicillin; Z88.5 Allergy status to narcotic agent; Z88.1 Allergy status to other antibiotic agents; Z88.8 Allergy status to other drugs, medicaments and biological substances; Z79.01 Long term (current) use of anticoagulants; Z79.82 Long term (current) use of aspirin; Z79.899 Other long term (current) drug therapy
CPT/HCPCS: 36415; 72040; 80048; 80053; 81001; 82962; 83735; 84100; 84484; 85025; 85027; 85610; 87086; 93005; 94640; 97110; 97162; 97166; 99285; A9270; G0378; 99284; J7620-GY